=== PATIENT | male | born 1975 | race Hispanic/Latino ===

== ENCOUNTER 2016-08-23 05:19 | Inpatient (IN) | payer SELFPAY ==
[2016-08-23] VITALS (13 sets, daily range): BP systolic 116–176; BP diastolic 58–100; PULSE 90–120; RESP 15–44; O2SAT 93–100
[~2016-08-23] VITALS: Ht 175.3 cm; Wt 87.3 kg
[2016-08-23] MEDS ORDERED: 0.9% Sodium Chloride 1,000 ML IV ONE (05:37)
--- NOTE | 2016-08-23 05:37 | ED.REPORT ---
HPI-General Illness Date of Service Aug 23, 2016 ED Provider: Dom Escamilla MD The pt is a 41 y/o male presenting to the ED via EMS due to his becoming unresponsive since 0 last night. EMS was called due to the noticing the abnormal breathing and CPR instructions were given over the phone. The medics gave the pt 2 MG of Narcan IV which caused his arms to move but he continued to be unresponsive. They report his HR being 130 initially but gradually decreasing to 120. The pt's reports no falls or trauma to the pt's head. She also states that the pt's brother has possibly had seizures in the past. Nursing Notes Stated Complaint: UNRESPONSIVE Chief Complaint: Critical Care/Intubated Nursing Notes Reviewed: Yes Allergies: Coded Allergies: No Known Allergies (Unverified , 08/23/16) General Time Seen by MD: 05:36 Chief Complaint Other (Unresponsive ) Hx Obtained From: Patient Arrived By: Ambulance Sudden in Onset?: Yes Onset Occurred: 9 - 12 hours ago Symptom Duration: Since onset Recent Healthcare: No recent doctor visit, No recent hospitalization Similar Sx Previous: No Past Medical History Past Medical History None reported Past Surgical History None reported Social History None reported Other Social History: Good social support, Ambulatory Status Independent Review of Systems Unable to Obtain ROS Patient condition Physical Exam Vital Signs Vital Signs Date Time Temp Pulse Resp B/P Pulse Ox O2 Delivery O2 Flow Rate FiO2 08/23/16 06:31 117 22 164/93 96 ET Tube 08/23/16 06:26 93 08/23/16 05:59 120 16 162/100 99 ET Tube 08/23/16 05:37 118 15 176/96 100 ET Tube 08/23/16 05:20 38.2 119 44 157/91 94 Non-Rebreather 15 BP - 157/91 HR - 119 SaO2 - 94% on RA RR - 44 Glucose - 108 Initial VS: Reviewed Alertness: Positive: Unresponsive Appearance / Presentation: Positive: Ill appearing/not toxic Head / Eyes: Atraumatic, Normocephalic ENT: Mucous membranes moist, No facial swelling Neck: Atraumatic, Supple, Full range of motion Respiratory / Chest: Breath sounds NL, Breath sounds = bilat Kussmaul respirations Cardiovascular: Heart rate NL, Regular rhythm, Heart sounds NL Abdomen: Atraumatic, Soft Back: Atraumatic, Full range of motion Upper Extremities Upper Extremity / MS: Atraumatic, Inspection NL, Full range of motion Skin: Atraumatic, Color NL, No rash, Warm, Dry Mental Status: Positive: Unresponsive Unable to Evaluate: Positive: Unresponsive Interpretation & Diagnostics Lab Results Interpretation Result Diagram: 08/23/16 0530 08/23/16 0530 Test 08/23/16 05:30 08/23/16 06:30 White Blood Count 22.2th/mm3 (3.8-10.1) Red Blood Count 5.33mil/mm3 (4.40-5.80) Hemoglobin 15.4g/dL (13.8-17.2) Hematocrit 47.4% (41.0-50.0) Mean Corpuscular Volume 88.9fL (81-100) Mean Corpuscular Hemoglobin 28.9pg (27.0-35.0) Mean Corpuscular Hemoglobin Concent 32.5% (32.0-37.0) Red Cell Distribution Width 14.0% (12.3-15.4) Platelet Count 292bil/L (150-400) Neutrophils (%) (Auto) 82.7% (40-74) Lymphocytes (%) (Auto) 6.1% (14-46) Monocytes (%) (Auto) 10.0% (4-12) Eosinophils (%) (Auto) 0% (0-5) Basophils (%) (Auto) 0.1% (0-3) Sodium Level 143mEq/L (134-144) Potassium Level 5.5mEq/L (3.5-5.2) Chloride Level 100mEq/L (97-108) Carbon Dioxide Level 17mmol/L (18-29) Blood Urea Nitrogen 20mg/dL (6-24) Creatinine 3.52mg/dL (0.76-1.27) Estimat Glomerular Filtration Rate 21mL/min (>59) Glucose Level 130mg/dL (60-99) Lactic Acid Level 5.0mmol/L (0.4-2.0) Calcium Level 8.6mg/dL (8.5-10.1) Magnesium Level 2.2mg/dL (1.6-2.6) Total Bilirubin 0.4mg/dL (0.0-1.2) Aspartate Amino Transf (AST/SGOT) 231U/L (0-50) Alanine Aminotransferase (ALT/SGPT) 139U/L (0-44) Alkaline Phosphatase 78U/L (25-150) Total Protein 8.5g/dL (6.4-8.4) Albumin 4.3g/dL (3.4-5.0) Salicylates Level < 3.0ug/mL (30-250) Acetaminophen Level < 15.0ug/mL Rx (10-25) Alcohols < 10mg/dL (0-10) Urine Color Dark yellow (YELLOW) Urine Appearance Cloudy (CLEAR,HAZY) Urine pH 5.5 (5.0-8.0) Urine Specific [place] 1.006 (1.003-1.035) Urine Protein 100mg/dL (NEG,TRACE) Urine Glucose (UA) Negativemg/dL (NEGATIVE) Urine Ketones Negativemg/dL (NEGATIVE) Urine Occult Blood Large (NEGATIVE) Urine Nitrite Negative (NEGATIVE) Urine Bilirubin Negative (NEGATIVE) Urine Urobilinogen Normalmg/dL (NORMAL) Urine Leukocyte Esterase Negative (NEGATIVE) Urine RBC 3-10/hpf (0-2) Urine WBC 0-5/hpf (0-5) Urine Epithelial Cells Occasional/hpf (NONE-MOD) Urine Crystals Amorphous urates (NONE Urine Bacteria Few/hpf (NONE-FEW) Urine Hyaline Casts None/lpf (NONE) Urine Granular Casts None seen (NONE SEEN) Urine Waxy Casts None seen (NONE SEEN) Urine Red Blood Cell Casts None seen (NONE SEEN) Urine White Blood Cell Casts None seen (NONE SEEN) Urine Mucus Present (None Seen) Urine Trichomonas None seen (NONE SEEN) Urine Yeast None (NONE SEEN) Urinalysis Comment Fine granular casts Urine Culture Reflexed Not indicated X-Ray Chest Interpretation Chest Xray Interpretation: Endotracheal tube was placed properly and aspiration is visible. View: Portable, 1 view Interpretation / Wet Read by: Wet read ED physician Re-Eval/Medical Decision Med Decision/Clinical Course 41-year-old purportedly heavy drinker, went to sleep on the floor last night and was found essentially the same position as morning, except in a pool of vomit. He was not arousable and CPR was started per telephone directions from 911. Rescue found him unresponsive but breathing with a pulse. They transported him on a percent oxygen with adequate oxygenation, but unresponsive totally. He was intubated shortly after arrival here. Blunted vomit was suctioned out of the throat. He was hyperkalemic appeared acidotic, as was confirmed by arterial blood gas. Pupils were 3 mm and fixed. The eyes are unmoving with head movement. abnormal hypercapnic respiratory effort and swallowing efforts. Overall he appears to have the appearance suggestive of pontine stroke, although etiology is clearly not a stroke but anoxic brain injury. Suspect he vomited and aspirated overnight, although seizure is not impossible. He remains intubated, requiring some sedation, and may ultimately require paralysis if he continues to over breathe. CT showed no evidence of bleed, and at this point there is reasonable preservation of his danielle-white interface. He is admitted now to the ICU. Prognosis is grave but indeterminate for the first twenty-four hours. noted. No purposeful movements of the limbs. No withdrawal from noxious stimuli. Time of Eval: 05:49 Re-Evaluation/Progress Note: Pt was intubated w/ an endotracheal tube and 200 MG of succinylcholine was given. Counseled Regarding: Diagnosis, Lab results Discharge & Departure Primary Impression: Anoxic brain injury Additional Impression: Metabolic acidosis Disposition: ADMITTED TO HOSPITAL Discharge Condition All VS Reviewed: Yes Condition: Critical Referrals: Jessica Coello MD (PCP) Crit Care Except Billable Proc Time Spent: 75-104 minutes (seventy-five minutes) Services Performed: Patient management by me, Time spent at bedside, Reviewing test results, Reviewing imaging, Discussing patient care, Documentation in record, Time with fam/surrogate Scribe Attestation Portions of this note were transcribed by Bg Bangura. I, Dr. Escamilla personally performed the history, physical exam and medical decision-making; I reviewed and confirmed the accuracy of the information in the transcribed note. Signed by : Chica Bucio, 08/23/16 and [id number]. copies to: Jessica Coello MD, Christopher W MD Aug 23, 2016 05:37 Bg Bangura Aug 23, 2016 05:44
[2016-08-23 05:46] LABS: BASOPHILS % (AUTO) 0.1 % (0-3); EOSINOPHILS % (AUTO) 0 % (0-5); Mean Corpuscular Hemoglobin 28.9 pg (27.0-35.0); Mean Corpuscular Volume 88.9 fL (81-100); NEUTROPHILS % (AUTO) 82.7 % (40-74); Platelet Count 292 bil/L (150-400)
[2016-08-23 06:22] LABS: Magnesium 2.2 mg/dL (1.6-2.6)
[2016-08-23 06:57] LABS: APPEARANCE,URINE CLOUDY (CLEAR,HAZY); COLOR,URINE DARK YELLOW (YELLOW); OCCULT BLOOD,URINE LARGE (NEGATIVE); PH,URINE 5.5 (5.0-8.0); UROBILINOGEN,URINE NORMAL (NORMAL)
[2016-08-23] MEDS ORDERED: Succinylcholine Chloride 20 mg/mL 5 mL Inj ONE (07:02)
[2016-08-23] MEDS ORDERED: Rocuronium 10 mg/mL 5 mL Inj ONE (07:02)
[2016-08-23] MEDS ORDERED: Propofol Inj 1,000,000 MCG in IV Premix 1 EACH IV SCH (07:10)
[2016-08-23] MEDS ORDERED: Propofol 10 mg/mL 20 mL Inj IVPUSH ONE (07:10)
[2016-08-23] MEDS ORDERED: Lactated Ringer's 1,000 ML IV SCH (07:39)
--- NOTE | 2016-08-23 08:12 | DRSVH ---
PROCEDURE: X-RAY CHEST ONE VIEW, PORTABLE ([id number]) INDICATIONS: found down / POST INTUBATION TECHNIQUE: One view of the chest was acquired. COMPARISON: None. FINDINGS: Surgical changes and devices: There is an endotracheal tube 5.9 cm above the hafsa. monitoring specialist leads are seen over the chest. Lungs and pleura: No pleural effusions or pneumothorax. Lungs are clear. Mediastinum: Mediastinal contours appear normal. Heart size is normal. Bones and chest wall: No suspicious bony lesions. Overlying soft tissues appear unremarkable. IMPRESSION: Endotracheal tube appropriate in position. No focal infiltrate or abnormality is seen in the lungs. Dictated by: Hemant Gallegos M.D. on 08/23/2016 at 8:10 Approved by: Hemant Gallegos M.D. on 08/23/2016 at 8:10
--- NOTE | 2016-08-23 08:14 | DRSVH ---
PROCEDURE: CT BRAIN WITHOUT CONTRAST ([id number]) INDICATIONS: found down, unresponsive TECHNIQUE: Noncontrast 4.5 mm thick angled axial sections acquired from the foramen magnum to the vertex, with c oronal reformats. COMPARISON: None. FINDINGS: Image quality: Excellent. CSF spaces: Basal cisterns are patent. No extra-axial fluid collections. Ventricles are normal in size and shape. Brain: No midline shift. No intracranial masses or hemorrhage. Isaacs-white matter interface is norm al. Skull and face: Calvarium and visualized facial bones are intact, without suspicious lesions. Sinuses: Visualized sinuses and mastoids are clear. IMPRESSION: No acute disease. Dictated by: Hemant Gallegos M.D. on 08/23/2016 at 8:10 this report corresponds to the findings of the preliminary NSR report. Approved by: Hemant Gallegos M.D. on 08/23/2016 at 8:12
[2016-08-23] MEDS: Propofol Inj 1,000,000 MCG in IV Premix 1 EACH IV SCH ×3 (08:39→20:30)
--- NOTE | 2016-08-23 09:47 | ABG ---
DateTimeAnalyzed 09:33:00 -_ pH ____7.269 - 7.350 7.450 pCO2 ___44.9__ -mmHg 35.0 45.0 pO2 ___63.0__ -mmHg 69.0 116 HCO3- ___19.9__ -mmol/L 22.0 26.0 ABE ___-6.7__ -mmol/L -2.0 2.0 tHb ___16.7__ -g/dL O2Hb ___87.3__ -% COHb ____0.7__ -% MetHb ____1.0__ -% sO2 ___88.8__ -% 25.0 FIO2 ___70.0__ -% PRVC 550 - PEEP ____5.0__ -cmH2O Set_RR ___14.0__ -b/min Drawn By NB - Date/Time Notified____ 09:47:00 -_ Spontaneous_RR ___24.0__ -b/min Oxygen Device 1 VENTILATOR - Notified By NB - Notified Whom ____A.MAY, RN - B 762 -mmHg tO2 ___20.4__ -Vol% Jeff test N/A -
[2016-08-23] MEDS ORDERED: Acetaminophen IV 1,000 MG in IV Premix 1 EACH IV ONE (10:00)
[2016-08-23] MEDS ORDERED: 0.9% Sodium Chloride 1,000 ML IV SCH ×2 (12:15→13:38)
[2016-08-23] MEDS ORDERED: Insulin LISPRO 300 Unit/3 mL Inj SUBQ ONE (12:20)
[2016-08-23] MEDS: Piperacillin-Tazo 3.375 Gm Inj 3.375 GM in Dextrose 5% Minibag Plus 50 ML IV SCH ×2 (12:26→20:31)
[2016-08-23] MEDS ORDERED: INSULIN HUMAN REGULAR IV SCH (12:30)
[2016-08-23] MEDS ORDERED: DEXTROSE 10% IV SCH (12:30)
--- NOTE | 2016-08-23 12:36 | ABG ---
DateTimeAnalyzed 12:28:00 -_ pH ____7.289 - 7.350 7.450 pCO2 ___41.2__ -mmHg 35.0 45.0 pO2 228 -mmHg 69.0 116 HCO3- ___19.1__ -mmol/L 22.0 26.0 ABE ___-6.8__ -mmol/L -2.0 2.0 tHb ___17.1__ -g/dL O2Hb ___97.6__ -% COHb ____0.3__ -% MetHb ____1.0__ -% sO2 ___98.9__ -% 25.0 FIO2 ___70.0__ -% PRVC 550 - PEEP ____8.0__ -cmH2O Set_RR ___20.0__ -b/min Vt __550.0__ -L Drawn By NB - Date/Time Notified____ 12:36:00 -_ Oxygen Device 1 VENTILATOR - Notified By nb - Notified Whom Dr Nizzamdin/Dr. Kendregan - B 762 -mmHg tO2 ___23.9__ -Vol% Jeff test N/A -
[2016-08-23] MEDS ORDERED: Sodium Chloride LOK Flush 10 mL Syringe IVFLUSH PRN ×2 (13:45)
--- NOTE | 2016-08-23 13:49 | DRSVH ---
PROCEDURE: X-RAY CHEST ONE VIEW, PORTABLE ([id number]) INDICATIONS: Patient intubated, aspiration TECHNIQUE: One view of the chest was acquired. COMPARISON: None. FINDINGS: Surgical changes and devices: An endotracheal tube ends 8 cm above the hafsa. There is an NG tube in the stomach. cafeteria monitor leads are seen over the chest. Lungs and pleura: No pleural effusions or pneumothorax. Lungs are clear. Mediastinum: Mediastinal contours appear normal. Heart size is normal. Bones and chest wall: No suspicious bony lesions. Overlying soft tissues appear unremarkable. IMPRESSION: No acute disease is seen a semiupright portable chest. Tubes are considered appropriate radiographically. Dictated by: Hemant Gallegos M.D. on 08/23/2016 at 13:46 Approved by: Hemant Gallegos M.D. on 08/23/2016 at 13:47
--- NOTE | 2016-08-23 14:24 | NUR ---
NUTRITION ASSESSMENT: ASSESS:Per ED report, 41-year-old purportedly heavy drinker, went to sleep on the floor last night and was found essentially the same position as morning, except in a pool of vomit. He was not arousable; CPR was started per telephone directions from 911. Rescue found him unresponsive but breathing with a pulse. They transported him on a percent oxygen with adequate oxygenation, but unresponsive totally. He was intubated shortly after arrival in ED. Blunted vomit was suctioned out of the throat. He was hyperkalemic, appeared acidotic, as was confirmed by arterial blood gas. Pupils were 3 mm and fixed. He has been transferred to CCU for ventilator management. PMHx:No medical history with the exception of ETOH abuse. DIET:NPO. LABS: Reviewed. K+ k6.0, CO2 17, BUN 29, Cr 3.79, Glu 173, Ca 7.7 MEDICATIONS: Reviewed. Propofol rate currently 11.4 mL/hr, providing 301 lipid kcal. NUTRITION FOCUSED PHYSICAL ASSESSMENT: GI symptoms / stool: No stool reported.[place]: 10. Skin Integrity: No issues reported. ANTHROPOMETRICS: Current Wt: 86.36 kgBMI: 27.0 kg/m2. IBW: 75.45 kg (114% IBW) ESTIMATED NEEDS (VENT): Calories: 1727 - 2159 kcal (20 - 25 kcal / kg BW) Protein: 130 - 155 g protein (1.5 - 1.8 g / kg BW) Fluid: Approx. 2591 mL (30 mL / kg BW) NUTRITION DIAGNOSIS: 1)Inadequate oral intake related to inability to consume sufficient energy, as evidenced by NPO / vent status. INTERVENTION: 1) In the event enteral feeding ordered over weekend, recommendation follows. Recommend initiate Jevity 1.5 at 35 mL/hr. Once tolerance established, recommend advance 10 ml every 4 hr. to goal rate 55 mL/hr. Flush dose 40 mL H2O every 4 hr. Enteral feeding at goal would provide 1815 kcal, 77 g protein, sufficient to meet 100% kcal / 55% protein needs. 2) Once tolerance established, recommend 1 packet [employer] liquid protein five times per day to meet 100% protein needs. MONITOR/EVALUATE: NPO / vent status, labs, GI/nutrition status. Follow up per high nutrition risk guidelines.
[2016-08-23 15:02] LABS: Phosphorus 7.2 mg/dL (2.5-4.9)
[2016-08-23] MEDS ORDERED: fentaNYL 2,500 mCg/250 mL 2,500 MCG in IV Premix 1 EACH IV PRN (15:03)
[2016-08-23 16:02] LABS: Magnesium 2.3 mg/dL (1.6-2.6); Phosphorus 5.2 mg/dL (2.5-4.9)
[2016-08-23] MEDS ORDERED: Acetaminophen IV 1,000 mg IV PRN (16:40)
--- NOTE | 2016-08-23 16:47 | ABG ---
DateTimeAnalyzed 16:39:00 -_ pH ____7.287 - pCO2 ___43.3__ -mmHg pO2 ___54.3__ -mmHg HCO3- ___20.0__ -mmol/L ABE ___-6.1__ -mmol/L tHb ___16.1__ -g/dL O2Hb ___82.9__ -% COHb ____0.6__ -% MetHb ____0.9__ -% sO2 ___84.2__ -% FIO2 ____5.0__ -% PRVC 550 - PEEP ____8.0__ -cmH2O Set_RR ___20.0__ -b/min Vt __550.0__ -L Drawn By ____RN/AF - Date/Time Notified____ 16:46:00 -_ Oxygen Device 1 VENTILATOR - Notified By NB - Notified Whom DR kENDREGAN - B 762 -mmHg tO2 ___18.7__ -Vol% Jeff test N/A -
[2016-08-23] MEDS ORDERED: Ondansetron 2 mg/mL 2 mL Inj IVPUSH PRN (18:35)
[2016-08-23] MEDS ORDERED: Alum-Mag Hydrox-Simeth 30 mL Suspension PO PRN (18:35)
[2016-08-23] MEDS ORDERED: Polyethylene Glycol (PEG) 17 Gm Powder PO PRN (18:35)
[2016-08-23] MEDS ORDERED: Senna-Docusate 8.6-50 mg Tablet PO PRN (18:35)
[2016-08-23] MEDS ORDERED: Acetaminophen IV 1,000 MG in IV Premix 1 EACH IV PRN (18:35)
--- NOTE | 2016-08-23 18:37 | NUR ---
Note Patient arrived in CCU after 0830 today. Patient was on ventilator and non-responsive. Heart rate 90s to low 100s and sinus with some degree of hypertension. Patient was over breathing ventilator respiratory rate of 14 by 15-20 breaths and was breathing at mid20- to high 30s. Patient was placed on propofol drip witch was titrated to comfort/adequate sedation within parameters. Occasional remaking during oral care, patient was not following commands- will consider lowering sedation when appropriate and after consulting with MD. Multiple lab draws with abnormal lab results consulted with the attending hospitalist and home care companion multiple times regarding labs and treatment. Potassium of 6.0 was treated with IV 3units regular insulin and D10 250ml infused over 1h- resulted with potassium of 5.8. However creatinine levels progressively increased during the shift with significantly decreased urine output MD consulted and ordered renal consult. Kayexalate 45gm per OG and additional orders were received per renal at the time. Multiple ventilator adjustments per RT after consulting with MD based on blood gases throughout the day- please see RT documentation. Elevated temp- consulted with MD patient was started on antibiotic regiment, Tylenol IV PRN with additional cooling- continue assessment. Multiple skin abrasions and pressure ulcers/injures after prolong down/sitting positon against a couch at home over 9-12h as describe by his consistent with pressure sores to buttock and both right and left scapula but grater on the right than the left. Multiple MEPILEX dressings were applied as appropriate for skin protection, turning and repositioning ad per protocol and PRN, wound care follow up was ordered.
[2016-08-23] MEDS: Dextrose 5% 0.45% NaCl 1,000 ML IV SCH (18:43)
[2016-08-23] MEDS: Azithromycin Inj 500 MG in Dextrose 5% w/Vial Mate 250 ML IV SCH (18:44)
--- NOTE | 2016-08-23 18:55 | CONS ---
[address] [address] CONSULTATION REPORT PATIENT: SANDY SOSA : 1975 MR#: [id number] ADMIT: 08/23/2016 JOB ID: [id number] CORRECTED REPORT: DATE OF SERVICE: 08/23/2016 ATTENDING PHYSICIAN: Dr. Bran. HISTORY: The patient is a 41-year-old, gentleman, who was admitted to [facility] for acute tubular necrosis secondary to rhabdomyolysis. His states that he had been drinking heavily yesterday and had been unresponsive since about 7 p.m. yesterday evening. She subsequently noticed abnormal breathing and CPR was started. He was treated with Narcan with no response. In the emergency department, he was subsequently intubated and mechanically ventilated. Subsequent laboratory revealed a potassium of 5.5, a BUN and creatinine of 20 and 3.53, lactate of 5, and a CPK of 45,000. He was given several liters of normal saline and subsequently was started on Ringer's lactate. His has had a number of liters of fluid and his blood pressure is stable. He remains on a ventilator. During my examination, at time of my consultation, he was beginning to make a small amount of urine. In discussing his history with his , she states that he has not had a history of any other medical problems. There is no history of any prior renal problems, diabetes, hypertension, lupus, or hepatitis. She states that on the weekends, he usually drinks fairly heavily but does not drink during the week. She relates that family brought several bottles of Tequila back from [place] and he consumed one of them yesterday. She denies any use of illicit drugs. PAST SURGICAL HISTORY: Unremarkable. He is not allergic to any food or any medication. FAMILY HISTORY: Unobtainable as no one seems to know about his family. He is not on any medication. REVIEW OF SYSTEMS: As detailed above. Otherwise is unremarkable. PHYSICAL EXAMINATION: Reveals a quite well-developed, 41-year-old gentleman, who was sedated and on a ventilator. His blood pressure was 144/72, with a heart rate of 116. HEENT examination showed some mildly pale sclerae and some scleral edema. Pupils were sluggish in their reaction to light secondary to sedation. Neck is supple without adenopathy, thyromegaly or jugular venous distention. Lungs are clear, though breath sounds were somewhat diminished. Heart was tachycardic but otherwise was unremarkable. Abdomen is soft, with markedly diminished bowel sounds. There was no tenderness, rebound, guarding, masses or hepatosplenomegaly. Extremities do not show any evidence of any clubbing, cyanosis, or edema. Skin turgor is good. In examining his dependent part of his body, the area of the shoulders, buttocks, and right heel have evidence of ulceration from pressure injury. Chest x-ray is unremarkable. LABORATORY EXAMINATION: On admission, his white count was 22.2. Hemoglobin, hematocrit, differential, platelet count were all unremarkable. His most recent lab showed a sodium of 138, potassium 5.8, chloride 102 bicarbonate 16. BUN and creatinine were 33 and 4.17, respectively. His glucose is 174. Uric acid is 9.2, and his most recent lactate was 3.6. He has had some slight improvement in his CPK which is now down to 41,000. Tests for salicylates. alcohols and acetaminophen were all negative. Urinalysis showed a specific gravity 1.006, pH was 5.5. Tests for protein, occult blood were positive. There were 3-10 RBCs per high-power field and 0-5 WBCs per high-power field. There were a few granular casts noted and amorphous urates. IMPRESSION: 1. Acute tubular necrosis secondary to rhabdomyolysis. 2. Rhabdomyolysis. 3. Hyperlactatemia. 4. Metabolic acidosis. RECOMMENDATION: I would like to obtain a renal ultrasound tomorrow to evaluate his renal function. I would also like to change his maintenance IV to D5 with half-normal saline at 150/hour. At approximately 10:00 this evening, I would like to give him a dose of 100 mg of Lasix. Based on his response and his urine output and laboratory parameters, I will base my recommendations tomorrow on these Once again, I would like to thank you for allowing me to participate in the care of this most pleasant but unfortunate patient. I will be following him closely with you. CC: Dr. Bran Corrected by GS 09/19/16 at 9:46am DOS.
--- NOTE | 2016-08-23 19:21 | DRSVH ---
PROCEDURE: X-RAY PICC LINE PLACEMENT BY NURSE ([id number]) INDICATIONS: IV access; facilitate blood draw COMPARISON: None. FINDINGS: PICC was placed by the intravenous therapy team from the right side. Fluoroscopic spot fi lm demonstrates tip of PICC in the superior vena cava near the right atrium. IMPRESSION: Tip of PICC lies within the superior vena cava. Dictated by: Hemant Gallegos M.D. on 08/23/2016 at 19:18 Approved by: Hemant Gallegos M.D. on 08/23/2016 at 19:18
--- NOTE | 2016-08-23 19:37 | PCM.HPMED ---
Subjective Date of Service Aug 23, 2016 Primary Provider: Admitting Physician: Maryjane Solo MD Primary Care Physician: No PCP Attending Physician: Kamini Bran DO Ditto Machine Operator: Enrique Rodriguez DO Admit Status: From the Emergency Department Chief Complaint: Unresponsive Acute Hypoxemic respiratory failure History of Present Illness: Santiago Ann is a 41 year old male who presented to the ED via EMS due to his becoming unresponsive since 1900 last night and found with vomit on himself at 0430 in the morning. EMS was called and CPR instructions were given over the phone to the as the patient had abnormal breathing. The medics gave the patient 2 mg of Narcan IV which caused his arms to move but he continued to be unresponsive. They report his HR being 130 initially but gradually decreasing to 120. The pt's reports no falls or trauma to the pt's head. She also states that the pt's brother has possibly had seizures in the past. She mentioned that Mr. Ann drank a bottle of tequila last night and does frequently drink alcohol. He has had no prior episodes like this. In the ED, vomit was suctioned out of the throat, and intubated. CT showed no acute disease and chest x-ray was unremarkble.He was found to be hyperkalemic and acidotic on ABG. He is admitted to the ICU for further management. Review of Systems: Unable to review as patient is intubated and sedated Allergies Coded Allergies: No Known Allergies (Unverified , 08/23/16) Home Medications None reported PMH None reported Surgical History None reported Family History Unable to obtain as patient intubated and sedated Social History Hx Alcohol Use: Yes Hx Substance Use: Yes Smoking Status: Unknown if Ever Smoker Living Arrangement: with Family Exam Vital Signs Vital Sign - Last Date Time Temp Pulse Resp B/P Pulse Ox O2 Delivery O2 Flow Rate FiO2 08/23/16 08:33 Ventilator 08/23/16 08:33 38.1 97 28 160/77 99 70 08/23/16 05:20 15 Intake and Output 08/22/16 08/22/16 08/23/16 Cumulative From/Thru 15:00 23:00 07:00 08/23/16 05:20 - 08/23/16 05:20 Intake Total 1000 ml 1000 ml Balance 1000 ml 1000 ml Intake IV Total 1000 ml 1000 ml Exam General: Patient intubated and sedated HEENT: Normocephalic, atraumatic. Pupils equal, round. Anicteric sclerae, moist conjunctivae. NG tube on suction, intubated. Cardiovascular: Regular rate and rhythm with no murmurs, rubs, or gallops appreciated Pulmonary: Clear to auscultation anteriorly with equal air sounds bilaterally. Patient intubated with FiO2 70%, PEEP of 8. Abdomen: Bowel tones present. Soft, nondistended. Extremities: No clubbing, cyanosis, edema, or lymphadenopathy appreciated. Skin: Large erythemetous region around sacrum with open wound about 3 inches in diameter. Similar looking presentation at upper thorax with some blisters. Neurological: Unable to assess as patient sedated. He is not responding to commands at this time. Lab and Diagnostics Labs Item Value Date Time Lactic Acid Level 5.0 mmol/L *H 08/23/16 0530 Lactic Acid Level 4.2 mmol/L *H 08/23/16 1110 Glucose Level 130 mg/dL H 08/23/16 0530 Glucose Level 173 mg/dL H 08/23/16 1110 Creatinine 3.52 mg/dL H 08/23/16 0530 Creatinine 3.79 mg/dL H 08/23/16 1110 Blood Urea Nitrogen 20 mg/dL 08/23/16 0530 Blood Urea Nitrogen 29 mg/dL H 08/23/16 1110 Potassium Level 5.5 mEq/L H 08/23/16 0530 Potassium Level 6.0 mEq/L H 08/23/16 1110 Aspartate Amino Transf (AST/SGOT) 231 U/L H 08/23/16 0530 Alanine Aminotransferase (ALT/SGPT) 139 U/L H 08/23/16 0530 Total Creatine Kinase 1073 U/L H 08/23/16 1110 White Blood Count 22.2 th/mm3 H 08/23/16 0530 Result Diagram: 08/23/16 0508/23/16 05 Microbiology Blood cultures pending MRSA swab pending X-Rays, CTs and MRIs 08/23/16 PROCEDURE: CT BRAIN WITHOUT CONTRAST ([id number]) IMPRESSION: No acute disease. 08/23/16 PROCEDURE: X-RAY CHEST ONE VIEW, PORTABLE ([id number]) IMPRESSION: Endotracheal tube appropriate in position. No focal infiltrate or abnormality is seen in the lungs. Additional Diagnostics: ABG DateTimeAnalyzed 12:28:00 -_ pH ____7.289 - 7.350 7.450 pCO2 ___41.2__ -mmHg 35.0 45.0 pO2 228 -mmHg 69.0 116 HCO3- ___19.1__ -mmol/L 22.0 26.0 ABE ___-6.8__ -mmol/L -2.0 2.0 tHb ___17.1__ -g/dL O2Hb ___97.6__ -% COHb ____0.3__ -% MetHb ____1.0__ -% sO2 ___98.9__ -% 25.0 FIO2 ___70.0__ -% PRVC 550 - PEEP ____8.0__ -cmH2O Set_RR ___20.0__ -b/min Vt __550.0__ -L Drawn By NB - Date/Time Notified____ 12:36:00 -_ Oxygen Device 1 VENTILATOR - Notified By nb - Notified Whom [facility]/Dr. Kendregan - B 762 -mmHg tO2 ___23.9__ -Vol% Jeff test N/A - DateTimeAnalyzed 09:33:00 -_ pH ____7.269 - 7.350 7.450 pCO2 ___44.9__ -mmHg 35.0 45.0 pO2 ___63.0__ -mmHg 69.0 116 HCO3- ___19.9__ -mmol/L 22.0 26.0 ABE ___-6.7__ -mmol/L -2.0 2.0 tHb ___16.7__ -g/dL O2Hb ___87.3__ -% COHb ____0.7__ -% MetHb ____1.0__ -% sO2 ___88.8__ -% 25.0 FIO2 ___70.0__ -% PRVC 550 - PEEP ____5.0__ -cmH2O Set_RR ___14.0__ -b/min Drawn By NB - Date/Time Notified____ 09:47:00 -_ Spontaneous_RR ___24.0__ -b/min Oxygen Device 1 VENTILATOR - Notified By NB - Notified Whom ____A.LALO, RN - B 762 -mmHg tO2 ___20.4__ -Vol% Jeff test N/A - Assessment & Plan Santiago Ann is a 41 year old male with no known past medical history who came in unresponsive after being found with vomit around him, now sedated and intubated for acute hypoxemic respiratory failure secondary to aspiration. Acute Hypoxemic Respiratory Failure, present on admission, active Secondary to asipiration. Patient has had large volume of vomit suctioned out. Chest X-ray personally reviewed and is unremarkable for pneumonia. Differential includes anoxic brain injury as patient has been unresponsive since admission. His eyes were fixed in the ED. - Currently intubated and sedated with FiO2 70% and PEEP of 8. - Currently sedated with Propofol. - Latest ABG as above, continue to monitor - X-ray tomorrow AM. -Critical care consulted case discussed with Dr. Daniel Metabolic Acidosis, present on admission, active Likely secondary to lactic acidosis - Monitor CMP Rhabdomyolysis, present [place] admission, [place] [id number]. Likely secondary to being in one position for 9 hours. Patient has large erythematous regions at pressure points of sacrum and upper thorax with open wound at sacrum. - IV fluids 250cc/hr - Monitor CK - Wound care consult - Nephrology consulted cased discussed with Dr. Whatley Acute Kidney Injury, present on admission, active Cr on admission at 3.52 and increasing after admission. Unknown history of kidney injury. 2L NS in the ED - IV fluids increased to 250 mL/hr - 2L NS bolus today - Continue to monitor Hyperkalemia, present on admission, active - 3 units IV insulin in D10 - Continue to monitor Elevated Liver Function Tests, present on admission, active Likely due to chronic alcohol use - Repeat CMP Alcohol abuse -Patient currently sedated no need to institute CIWA protocol at this time Questionable drug abuse -Patient's was concerned that the patient might have other substances in his tox screen, will discuss further with the once there is no other family present in the room. Code Status: Full Code Patient Status: Patient is admitted under inpatient status with expected length of stay greater than 2 midnights due to severity of presenting symptoms, risk of adverse event, and complexity of treatment plan. GI Prophylaxis: Proton Pump Inhibitor VTE Mechanical Devices: Intermittant Pneumatic CD Resuscitation Status: CPR: Attempt Resuscitation Attending Statement The patient was seen and examined together with Dr. Rodriguez on 08/23/2016 and I have added additional information to the note above. Enrique Rodriguez DO Aug 23, 2016 10:07 Kamini Bran DO Aug 24, 2016 14:02
--- NOTE | 2016-08-23 19:49 | CONS ---
[address] [address] CONSULTATION REPORT PATIENT: SANDY SOSA : 1975 MR#: [id number] ADMIT: 08/23/2016 JOB ID: [id number] DATE OF SERVICE: 08/23/2016 REQUESTING PHYSICIAN: Kamini Bran MD. REASON FOR CONSULTATION: Respiratory failure. HISTORY OF PRESENT ILLNESS: The patient is a 41-year-old, [place] male who has a heavy drinking history. It is unclear whether it is beer or beer and Tequila. In any case, he started drinking heavily two days before admission. Drank Tequila all day and again all day Thursday. Thursday evening, the patient was sitting on the couch with his . Climbed off the couch and sat in front of the couch on the floor, leaning on the front of the couch. He fell asleep and began snoring. A cousin, who was also there, told his that things were okay and that he needed some sleep and that he should be left alone. She went to bed at about 11:00 at night. He was still in the same position snoring. She woke at 4:30 a.m., and he was still sitting in front of the couch though some observers say he was lying in front of the couch, but his face was covered with vomit. She was not sure he was breathing. However, paramedics described a shallow breath and shallow pulse. He was intubated in the emergency department. Aspiration was visible. Transferred to the ICU. According to the , the patient has no other medical problems. Takes no other medications and has no allergies. 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 REVIEW OF SYSTEMS: Unable to obtain. No other pertinent history available. PHYSICAL EXAMINATION: Vital signs at the time of my evaluation show a temperature of 38.8, pulse of 90, respiratory rate 20, blood pressure 127/75. O2 sat on FiO2 of 70%, PEEP of 8, is 99%. I and O suggests that he has 2 L of normal saline infused. Currently has 0.5 L of lactated Ringer's infusing. Urine output maybe is 150 since admission about 7 hours ago. Eyes: Conjunctivae are pink. Pupils pinpoint. Sclerae anicteric. No evidence of trauma. Nose and throat could not be examined. Neck: No masses palpable. Chest has fairly good breath sounds bilaterally. Scattered crackles throughout both lung lisa. Heart: Regular rhythm. Heart tones normal. Abdomen soft. Quiet. No apparent distention. Extremities: No clubbing, cyanosis, nor pretibial edema. Skin: There is a palm-sized erythematous patch with some edema on his right scapular area. I am told there is worse erythematous edema with some skin breakdown on the sacral area. LABORATORY DATA: Shows a white count of 22,200, with 82 polymorphonuclears, no bands, 6 lymphocytes. Hemoglobin 15.4. Platelet count 292,000. Sodium 141, potassium 6, chloride 103, CO2 is 17. BUN 29, creatinine is 3.7. Calcium 7.7. Early this morning, total bilirubin was 0.4. AST 231, ALT 139, alkaline phos 78. Albumin 4.3. UA shows large amount of occult blood but only 3-10 RBCs. Toxicology screen negative for salicylates, acetaminophen and alcohols. Chest x-ray on admission showed endotracheal tube 6 cm above the main hafsa. Lungs are clear. Arterial blood gases on an FiO2 of 70%, PEEP of 5, tidal volume of 550, rate of 14, showed a pO2 of 63, pCO2 44, pH 7.26. Subsequently, PEEP was raised to 8. With the rise in the PEEP to 8, O2 sats doyle to 99% to 100%. Urine output is a few mL at best. A burnt red color to the urine. ASSESSMENT: 1. Aspiration pneumonia. Noted to have vomitus in his airway at the time of intubation. 2. Probable anoxic encephalopathy. Has pinpoint pupils which is somewhat worrisome for a pontine lesion. Initial CT is normal although much too early to see any significant cerebral edema. 3. Rhabdomyolysis. CK was initially reported as 1100, but that was on diluted specimen. We have asked them to calculate the undiluted concentration. That will also be repeated. 4. Hypokalemia. Not putting out much urine. It is incumbent upon us with the hyperkalemia and the renal failure with a creatinine above 3.79 and a potassium of 6 in the face of rhabdomyolysis to try to achieve reasonable diuresis, putting out 100 or 200 mL of urine an hour to ameliorate the nephrotoxicity associated with rhabdomyolysis. With the hyperkalemia, I do not think LR is a judicious choice and should be changed to normal saline. I think it important that we contact Renal as we are going to run into trouble with fluid resuscitation if we cannot get the patient urinating. Would start Lasix, but I think Renal should at least know about this patient as dialysis is likely in his future. PLAN: 1. Stat repeat BMP, lactic acid, uric acid, phosphorus, CK, along with repeat blood gases. Can do venous blood gases through PICC line. 2. Asked IV Services to place a PICC line for secure IV access. 3. Would add fentanyl to his sedation. That might work better for his apparent comfort than the propofol. 4. Agree with empiric antibiotics, utilizing Zosyn for aspiration pneumonitis. 5. Consider renal consultation. 6. Fentanyl infusion. 7. Normal saline at 250 mL an hour. 8. Stat blood work to consist of BMP, CK, lactic acid, lipase, magnesium and phosphorus, uric acid. Discussed the situation with and one family member. Explained the concern about his current state, as well as the concern regarding significant brain injury. Time spent so far in critical care is 105 minutes.
[2016-08-23] MEDS ORDERED: Furosemide 10 mg/mL 10 mL Inj IVPUSH ONE (22:00)
[2016-08-24] VITALS (12 sets, daily range): BP systolic 125–148; BP diastolic 74–98; PULSE 74–88; RESP 20–22; O2SAT 98–100
[2016-08-24] MEDS: Dextrose 5% 0.45% NaCl 1,000 ML IV SCH ×4 (01:28→22:27)
[2016-08-24] MEDS: Propofol Inj 1,000,000 MCG in IV Premix 1 EACH IV SCH ×3 (01:28→12:10)
[2016-08-24 05:34] LABS: BASOPHILS % (AUTO) 0.1 % (0-3); EOSINOPHILS % (AUTO) 0.1 % (0-5); MONOCYTES % (AUTO) 9.2 % (4-12); Mean Corpuscular Hemoglobin 29.2 pg (27.0-35.0); Mean Corpuscular Volume 88.1 fL (81-100); NEUTROPHILS % (AUTO) 81.1 % (40-74); Platelet Count 181 bil/L (150-400)
[2016-08-24 05:53] LABS: Phosphorus 6.4 mg/dL (2.5-4.9)
[2016-08-24] MEDS ORDERED: Pantoprazole 4 mg/mL 10 mL Inj IVPUSH SCH (08:30)
[2016-08-24] MEDS: Piperacillin-Tazo 3.375 Gm Inj 3.375 GM in Dextrose 5% Minibag Plus 50 ML IV SCH ×2 (08:32→20:50)
[2016-08-24] MEDS: Famotidine Inj 20 MG in IV Premix 1 EACH IV SCH (08:32)
--- NOTE | 2016-08-24 08:34 | DRSVH ---
PROCEDURE: X-RAY CHEST ONE VIEW, PORTABLE ([id number]) INDICATIONS: aspiration, pt intubated TECHNIQUE: One view of the chest was acquired. COMPARISON: [facility], CR, XR CHEST 1VW (PORTABLE), 08/23/2016, 10:24. FINDINGS: Surgical changes and devices: Endotracheal tube nasogastric tube and right PICC are unchanged. Lungs and pleura: No pleural effusions or pneumothorax. Lungs are clear. Mediastinum: Mediastinal contours appear normal. Heart size is normal. Bones and chest wall: No suspicious bony lesions. Overlying soft tissues appear unremarkable. IMPRESSION: Support lines as above. Otherwise, no acute pulmonary process. Dictated by: Shobha Vale M.D. on 08/24/2016 at 8:31 Approved by: Shobha Vale M.D. on 08/24/2016 at 8:32
[2016-08-24] MEDS ORDERED: Furosemide 10 mg/mL 10 mL Inj IVPUSH ONE (11:15)
--- NOTE | 2016-08-24 12:05 | PCM.PNNEPH ---
Subjective Date of Service Aug 24, 2016 Subjective Patient's condition is slightly improved. He is having an increase in his BUN and creatinine however his total CPK continues to decrease to 34,000 today. Last 24-hour he has made 750 and also when necessary and 250 since midnight. He remains sedated and on a ventilator. His intake and output for the last 24 hours was 3699 in and 750 out. This morning his sodium is 140, potassium 4.6, chloride 104, bicarbonate 19, creatinine were 47 and 5.97. Exam Vital Signs Vital Sign - Last Date Time Temp Pulse Resp B/P Pulse Ox O2 Delivery O2 Flow Rate FiO2 08/24/16 08:10 Ventilator 08/24/16 08:10 37.0 76 20 135/84 99 50 08/23/16 05:20 15 Intake and Output 08/23/16 08/23/16 08/24/16 Cumulative From/Thru 15:00 23:00 07:00 08/23/16 05:20 - 08/24/16 06:50 Intake Total 2699 ml 2894 ml 6593 ml Output Total 500 ml 450 ml 400 ml 1350 ml Balance -500 ml 2249 ml 2494 ml 5243 ml Intake IV Total 2639 ml 2834 ml 6473 ml Tube Irrigant 60 ml 60 ml 120 ml Output Urine Total 500 ml 250 ml 250 ml 1000 ml Gastric Drainage Total 200 ml 150 ml 350 ml # Bowel Movements 2 2 Exam HEENT examination is unremarkable. He is sedated and on a ventilator. Neck is supple without adenopathy, thyromegaly, or jugular venous distention. Lungs showed a few scattered rhonchi but otherwise were clear. Abdomen is soft and there is some markedly diminished bowel sounds noted. There is no tenderness rebound guarding masses over his liver does appear to be a bit more enlarged. Extremities shows some mild generalized some I pitting edema. Skin turgor is good. There is no evidence of any rashes. The ischemic ulcers are currently covered in that were not explored. Lab and Diagnostics Result Diagram: 08/24/16 0520 08/24/16 0520 Microbiology Blood cultures pending MRSA swab pending X-Rays, CTs and MRIs 08/23/16 PROCEDURE: CT BRAIN WITHOUT CONTRAST ([id number]) IMPRESSION: No acute disease. 08/23/16 PROCEDURE: X-RAY CHEST ONE VIEW, PORTABLE ([id number]) IMPRESSION: Endotracheal tube appropriate in position. No focal infiltrate or abnormality is seen in the lungs. Additional Diagnostics ABG DateTimeAnalyzed 12:28:00 -_ pH ____7.289 - 7.350 7.450 pCO2 ___41.2__ -mmHg 35.0 45.0 pO2 228 -mmHg 69.0 116 HCO3- ___19.1__ -mmol/L 22.0 26.0 ABE ___-6.8__ -mmol/L -2.0 2.0 tHb ___17.1__ -g/dL O2Hb ___97.6__ -% COHb ____0.3__ -% MetHb ____1.0__ -% sO2 ___98.9__ -% 25.0 FIO2 ___70.0__ -% PRVC 550 - PEEP ____8.0__ -cmH2O Set_RR ___20.0__ -b/min Vt __550.0__ -L Drawn By NB - Date/Time Notified____ 12:36:00 -_ Oxygen Device 1 VENTILATOR - Notified By nb - Notified Whom [facility]/Dr. Kendregan - B 762 -mmHg tO2 ___23.9__ -Vol% Jeff test N/A - DateTimeAnalyzed 09:33:00 -_ pH ____7.269 - 7.350 7.450 pCO2 ___44.9__ -mmHg 35.0 45.0 pO2 ___63.0__ -mmHg 69.0 116 HCO3- ___19.9__ -mmol/L 22.0 26.0 ABE ___-6.7__ -mmol/L -2.0 2.0 tHb ___16.7__ -g/dL O2Hb ___87.3__ -% COHb ____0.7__ -% MetHb ____1.0__ -% sO2 ___88.8__ -% 25.0 FIO2 ___70.0__ -% PRVC 550 - PEEP ____5.0__ -cmH2O Set_RR ___14.0__ -b/min Drawn By NB - Date/Time Notified____ 09:47:00 -_ Spontaneous_RR ___24.0__ -b/min Oxygen Device 1 VENTILATOR - Notified By NB - Notified Whom ____A.MAY, RN - B 762 -mmHg tO2 ___20.4__ -Vol% Jeff test N/A - Plan Impression Impression #1 acute tubular necrosis secondary to rhabdomyolysis #2 hyperprolactinemia #3 metabolic acidosis Recommendations #1 would like to continue him on the D5 and half-normal saline at 150 mL vessel nurse to give him 120 mg of Lasix over 30 minutes. Recheck his lab at 1600 today and a vascular study to me a call when this lab is back for an update and also discussing about his change in his laboratory parameters. As he is currently making some urine we will hold off on dialysis at this time. Ace Whatley DO Aug 24, 2016 12:05
--- NOTE | 2016-08-24 14:57 | PCM.PNMED ---
Subjective Date of Service Aug 24, 2016 Subjective Patient was seen and examined at bedside today. Patient currently remains intubated and sedated. Patient is at bedside after significant discussion with the she admitted that the patient does have a habit of using cocaine and also ice. The patient states that her does not always tell her when he uses drugs but he does admit to his sister whenever he uses drugs so the patient's states that she will find out if he was using ice in conjunction with his significant alcohol use. The patient's states that the patient does use cocaine but is able to control his use of cocaine however states that whenever he uses ice he is unable to control his usage of that and has more of a desire to use this however he does state that this drug "does not do good things to his body" and is able to feel the negative side effects almost immediately. She also states that he continues to use cocaine for pain relief purposes and states that nothing else has helped this. She states that his back pain is in the area of the kidneys, which may suggest that he has had previous kidney injury but was unaware of this as they do not have insurance and he does not go to the doctors regularly. Overnight events: None Exam Vital Signs Vital Sign - Last Date Time Temp Pulse Resp B/P Pulse Ox O2 Delivery O2 Flow Rate FiO2 08/24/16 12:11 Ventilator 08/24/16 12:11 37.1 78 20 125/82 98 50 08/23/16 05:20 15 Intake and Output 08/23/16 08/23/16 08/24/16 Cumulative From/Thru 15:00 23:00 07:00 08/23/16 05:20 - 08/24/16 06:50 Intake Total 2699 ml 2894 ml 6593 ml Output Total 500 ml 450 ml 400 ml 1350 ml Balance -500 ml 2249 ml 2494 ml 5243 ml Intake IV Total 2639 ml 2834 ml 6473 ml Tube Irrigant 60 ml 60 ml 120 ml Output Urine Total 500 ml 250 ml 250 ml 1000 ml Gastric Drainage Total 200 ml 150 ml 350 ml # Bowel Movements 2 2 Exam Physical Exam: GEN: Patient is currently sedated and intubated, no signs of distress HEENT: Neck soft supple, trachea midline, nomocephalic/atraumatic, PERRLA CV: +S1/S2, regular rate and rhythm, no murmurs auscultated Respiratory: Coarse breath sounds secondary to ventilator, no wheezes, rales, rhonchi GI: +bowel sounds x4, soft, compressible, nontender to palpation Skin: Erythematous lesions in the upper thorax with positive bulla forming, significant erythematous region around the sacrum with a superficial 3 inch diameter open wound present. EXT: no clubbing, cyanosis, edema Neuro: Patient is currently sedated and intubated unable to assess Psych: Patient is currently sedated and intubated unable to assess IVs and Medications Medications Reviewed: Medications were reviewed in detail Lab and Diagnostics Result Diagram: 08/24/1651908/24/16519 Microbiology Blood cultures pending MRSA swab pending X-Rays, CTs and MRIs 08/23/16 PROCEDURE: CT BRAIN WITHOUT CONTRAST ([id number]) IMPRESSION: No acute disease. 08/23/16 PROCEDURE: X-RAY CHEST ONE VIEW, PORTABLE ([id number]) IMPRESSION: Endotracheal tube appropriate in position. No focal infiltrate or abnormality is seen in the lungs. Additional Diagnostics ABG DateTimeAnalyzed 12:28:00 -_ pH ____7.289 - 7.350 7.450 pCO2 ___41.2__ -mmHg 35.0 45.0 pO2 228 -mmHg 69.0 116 HCO3- ___19.1__ -mmol/L 22.0 26.0 ABE ___-6.8__ -mmol/L -2.0 2.0 tHb ___17.1__ -g/dL O2Hb ___97.6__ -% COHb ____0.3__ -% MetHb ____1.0__ -% sO2 ___98.9__ -% 25.0 FIO2 ___70.0__ -% PRVC 550 - PEEP ____8.0__ -cmH2O Set_RR ___20.0__ -b/min Vt __550.0__ -L Drawn By NB - Date/Time Notified____ 12:36:00 -_ Oxygen Device 1 VENTILATOR - Notified By nb - [facility] [place] [facility]. Kendregan - B 762 -mmHg tO2 ___23.9__ -Vol% Jeff test N/A - DateTimeAnalyzed 09:33:00 -_ pH ____7.269 - 7.350 7.450 pCO2 ___44.9__ -mmHg 35.0 45.0 pO2 ___63.0__ -mmHg 69.0 116 HCO3- ___19.9__ -mmol/L 22.0 26.0 ABE ___-6.7__ -mmol/L -2.0 2.0 tHb ___16.7__ -g/dL O2Hb ___87.3__ -% COHb ____0.7__ -% MetHb ____1.0__ -% sO2 ___88.8__ -% 25.0 FIO2 ___70.0__ -% PRVC 550 - PEEP ____5.0__ -cmH2O Set_RR ___14.0__ -b/min Drawn By NB - Date/Time Notified____ 09:47:00 -_ Spontaneous_RR ___24.0__ -b/min Oxygen Device 1 VENTILATOR - Notified By NB - Notified Whom ____A.MAY, RN - B 762 -mmHg tO2 ___20.4__ -Vol% Jeff test N/A - Assessment & Plan Santiago Seth is a 41 year old male with no known past medical history who came in unresponsive after being found with vomit around him, now sedated and intubated for acute hypoxemic respiratory failure secondary to aspiration. Acute Hypoxemic Respiratory Failure, present on admission, active Secondary to asipiration and intoxication. Patient has had large volume of vomit suctioned out. Chest X-ray personally reviewed and is unremarkable for pneumonia. Differential includes anoxic brain injury as patient has been unresponsive since admission. His eyes were fixed in the ED. - Currently intubated and sedated with FiO2 50% and PEEP of 8. - Currently sedated with Propofol. - X-ray Image reviewed today patient still does not look like he has any signs of aspiration pneumonia - We will continue to treat with Zosyn as this still may be a possibility of aspiration pneumonia -Leukocytosis improving currently trending down on admission 22.2 today 17.9 -Critical care consulted case discussed with Dr. Daniel Metabolic Acidosis, present on admission, active Likely secondary to lactic acidosis - Monitor CMP Rhabdomyolysis, present on admission, [place] [id number]. Likely secondary to being in one position for 9 hours. Patient has large erythematous regions at pressure points of sacrum and upper thorax with open wound at sacrum. - IV fluids 250cc/hr - Monitor CK - Wound care consult - Nephrology consulted and following cased discussed with Dr. Whatley today Acute Kidney Injury, present on admission, active Cr on admission at 3.52 and increasing after admission. Unknown history of kidney injury. 2L NS in the ED - IV fluids increased to 250 mL/hr - 2L NS bolus today -Nephrology (Dr. Whatley) currently following case was discussed with him will give the patient another 100 animals of Lasix today to encourage urination - Continue to monitor Hyperkalemia, present on admission (resolved) - Current potassium is 4.6 - 3 units IV insulin in D10 given on 08/23/2016 - Continue to monitor Elevated Liver Function Tests, present on admission, active Likely due to chronic alcohol use - Currently trending down - Continue to monitor Alcohol abuse -Patient currently sedated no need to institute CIWA protocol at this time Drug abuse -Patient is a known user of cocaine and ice -We will obtain further history to find out last use Code Status: Full Code Disposition: Patient currently intubated and sedated patient does seem to be progressing however his kidney failure seems to be worsening. We will continue to encourage diuresis. Nephrology is following and case dialysis is necessary. Case was discussed with both nephrology (Dr. Whatley) and critical care (Dr. Daniel) today. GI Prophylaxis: Proton Pump Inhibitor VTE Mechanical Devices: Intermittant Pneumatic CD Resuscitation Status: CPR: Attempt Resuscitation Kamini Bran DO Aug 24, 2016 14:57
--- NOTE | 2016-08-24 15:35 | NUR ---
Social Work: Multidisciplinary Rounds Pt discussed in am rounds. Pt is not medically stable for discharge at this time. Pt currently in CCU on vent with CCU team following. Pt has screen for assessment due to self-pay insurance and multiple providers involved in care; case management will not be able to assess pt today due to high census. ANALYTICAL SCIENCES DIRECTOR will continue to follow and attempt assessment. JEFF Fox
[2016-08-24] MEDS: Azithromycin Inj 500 MG in Dextrose 5% w/Vial Mate 250 ML IV SCH (17:48)
--- NOTE | 2016-08-24 19:19 | NUR ---
Note Sedation decreased at 1230 today: propofol drip from 30mcg/kg/min to 5mcg/kg/min and fentanyl drip from 50mcg/h to 20mcg/h. after about 1h patient started over-breeding ventilator rate by 2-3 breaths per min with occasional breaths stacking. Patient had productive cough stimulated by turning/repositioning. When suctioned per ET with thick rick moderate amounts of phlegm. Patient was grimace during oral care or when suctioned with minimal gag reflex. Eye opening spontaneously only during ET suctioning and not to commands- patient was not tracking. Cornea stimulation no visible response. Dr. Mooney informed patients family about a need for a family conference regarding patients progress/condition with live supervisor glycerin as soon as tomorrow- MD will consult with other physicians/staff attending. Progressive increased in creatinine and BUN during the last 24h. Total urine output in 12h was 175-primary MD and delivery technician were informed/consulted about laboratory changes and patients status during the shift. Next set of labs to be drawn in AM Renal will consider dialysis based on morning labs.
--- NOTE | 2016-08-24 20:01 | PROG NOTE ---
[address] [address] PROGRESS NOTE PATIENT: SANDY SOSA : 1975 MR#: [id number] ADMIT: 08/23/2016 JOB ID: [id number] DATE: 08/24/2016 PROBLEM LIST: 1. Anoxic encephalopathy. 2. Acute alcohol abuse. 3. Rhabdomyolysis with acute kidney injury. 4. Hyperkalemia. 5. Aspiration pneumonitis. 6. Hypoxemic hypercarbic respiratory failure. SUBJECTIVE: None. OBJECTIVE: Temperature 37.1. Pulse mid 70s. Respiratory rate 20-22 with ventilator set at 20. Blood pressure 137/87, O2 sat on FiO2 of 50%, PEEP of 8, is 99%. I and O shows 3.6 L in, 0.9 L out, with only 500 mL of the 950 being urine. General appearance: Sedated on the ventilator, though the sedation has been decreased throughout the day. Currently, on fentanyl 20 mcg/hour. Been off much of the sedation for the past 7 hours. Pupils pinpoint. Corneals absent. Some roving eye movements noted. Chest is clear anterolaterally. Heart: Regular rhythm. Heart tones normal. Abdomen soft. Quiet. Extremities: No withdrawal from pain. Bilateral Babinski response present. LABORATORY DATA: Shows a white count of 17,900, down from 22,200 yesterday. Eighty-one polymorphonuclears, 8 lymphocytes, 9 monocytes. Hemoglobin stable at 15.4. Platelet count 181,000, down from 292,000. Sodium 140, potassium 4.6, chloride 104. CO2 is 19. BUN 47, slowly increasing. Creatinine 5.97, up over 1 mg in the past 7 hours. Calcium 7.2 with albumin of 2.8. Phosphorus mildly elevated at 6.4. AST elevated at 563, down from 624. ALT 254 and unchanged. Alkaline phos normal at 64. CK 34,150, down somewhat from 45,330, 18 hours previously. The sputum pending. Chest x-ray shows the lung lisa to be clear. ASSESSMENT: 1. Aspiration pneumonitis. Doing rather well. On Zosyn to help with the infections associated with aspiration. Oxygenation somewhat improved though still a significant (A-a)DO2 gradient is present. In addition, he has a quite a bit of space ventilation as CO2 is normal with about 10 L of minute ventilation. 2. Rhabdomyolysis. Slightly improved. However, acute kidney injury has intervened. Kidney functions suggest complete absence of kidney function. 3. Hyperkalemia. Under better control. 4. Hepatic injury. Probably hypoxic, may be shocky from the initial insult. 5. Anoxic encephalopathy. Findings are certainly worrisome. This is at our 24-hour interval. Will see how things go over the next 24-48 hours. Initially discussed the case as best I could with the patient's , who speaks rather broken Uruguayan. I told her I would have an truck rental service attendant that we can talk with tomorrow so we can go over fine points in details. Later on, I was called back to the room to speak with other family members, some of whom spoke excellent [place]ayan. However, I explained that medically legally they could not be used as an truck rental service attendant. Discussed his condition and described the critical nature of his current condition. Again, I re-emphasized that we need a hospital truck rental service attendant for medical legal purposes. Will set up a family conference with a dairy cattle farm manager tomorrow. PLAN: 1. Continue current vent settings. 2. Fluids as per Nephrology. 3. Continue antibiotics for possible aspiration pneumonia. 4. Withhold sedatives as much as we can so we can follow his neurologic status. Overall time spent with critical care and discussions with the family of 55 minutes.
--- NOTE | 2016-08-24 20:40 | DRSVH ---
PROCEDURE: US RENAL SONOGRAM INDICATIONS: JUWAN TECHNIQUE: Real-time scanning was performed of the kidneys and bladder, with image documentation. COMPARISON: None. FINDINGS: Kidneys: Kidneys are normal in size. Right kidney measures 13.0 cm long; left kidney measures 12.4 cm long. Right renal cortical thickness is 1.9 cm; left renal cortical thickness is 2.5 cm. Renal c ortical echotexture is normal. No hydronephrosis or nephrolithiasis. No suspicious solid mass lesio ns. Right renal cyst measures 15 x 24 x 15 mm. Bladder: Espinoza catheter is in place. No further images were acquired. Miscellaneous: No free pelvic fluid. IMPRESSION: No hydronephrosis. Right renal cyst. Dictated by: Shobha Vale M.D. on 08/24/2016 at 20:37 Approved by: Shobha Vale M.D. on 08/24/2016 at 20:38
--- NOTE | 2016-08-24 22:28 | PCM.ADCARE ---
Advance Care Planning Note Purpose of Encounter: Date of Service: 08/24/16 Goals of care Parties in Attendance: Patient's , Mother, and Dr. Bran Decisional Capacity: Poor the patient is intubated and sedated Subjective: The patients diagnosis was discussed extensively with the family. At this time the family would like the patient to remain full code and have all measures of care performed. Plan: Diagnosis: Acute hypoxemic respiratory failure Metabolic acidosis Rhabdomyolysis JUWAN Hyperkalemia Elevated liver function tests Alcoholism Drug abuse CODE STATUS: Full code Time Spent Adv.Care Planning: Greater than 16 minutes Kamini Bran DO Aug 24, 2016 22:28
[2016-08-25] VITALS (13 sets, daily range): BP systolic 90–129; BP diastolic 52–81; PULSE 66–102; RESP 17–20; O2SAT 97–100
--- NOTE | 2016-08-25 05:48 | NUR ---
pt turned q2h and prn. Pt also positioned with bridge technique to lift buttocks off bed and CLRT active on bed.
[2016-08-25 06:03] LABS: Phosphorus 7.8 mg/dL (2.5-4.9)
--- NOTE | 2016-08-25 08:02 | DRSVH ---
PROCEDURE: X-RAY CHEST ONE VIEW, PORTABLE ([id number]) INDICATIONS: acute respiratory failure TECHNIQUE: One view of the chest was acquired. COMPARISON: [facility], CR, XR CHEST 1VW (PORTABLE), 08/24/2016, 6:58. FINDINGS: Surgical changes and devices: PICC line, ET tube and NG tube are stable. Lungs and pleura: No pleural effusions or pneumothorax. Lungs are clear. Mediastinum: Mediastinal contours appear normal. Heart size is normal. Bones and chest wall: No suspicious bony lesions. Overlying soft tissues appear unremarkable. IMPRESSION: No acute cardiopulmonary disease process. Dictated by: Swathi Jimenes MD, PhD on 08/25/2016 at 7:59 Approved by: Swathi Jimenes MD, PhD on 08/25/2016 at 8:00
[2016-08-25] MEDS: Piperacillin-Tazo 3.375 Gm Inj 3.375 GM in Dextrose 5% Minibag Plus 50 ML IV SCH ×2 (08:22→21:41)
[2016-08-25] MEDS: Propofol Inj 1,000,000 MCG in IV Premix 1 EACH IV SCH ×2 (08:23→18:35)
[2016-08-25] MEDS: Dextrose 5% 0.45% NaCl 1,000 ML IV SCH ×2 (08:23→18:35)
[2016-08-25] MEDS: Famotidine Inj 20 MG in IV Premix 1 EACH IV SCH (08:24)
[2016-08-25] MEDS: Chlorhexidine 0.12% 15 mL Oral Solution MT SCH ×4 (10:28→21:41)
--- NOTE | 2016-08-25 10:36 | ABG ---
DateTimeAnalyzed 10:20:00 -_ pH ____7.354 - 7.350 7.450 pCO2 ___31.5__ -mmHg 35.0 45.0 pO2 160 -mmHg 69.0 116 HCO3- ___17.1__ -mmol/L 22.0 26.0 ABE ___-6.9__ -mmol/L -2.0 2.0 tHb ___14.4__ -g/dL O2Hb ___98.1__ -% COHb ____0.6__ -% MetHb ____0.1__ -% sO2 ___98.8__ -% 25.0 FIO2 ___45.0__ -% PRVC 20 - PEEP ____8.0__ -cmH2O Vt __550.0__ -L Drawn By gj - Date/Time Notified____ 10:36:00 -_ Spontaneous_RR ___20.0__ -b/min Oxygen Device 1 VENTILATOR - Notified By gj - Notified Whom ____HUYNH - B 760 -mmHg tO2 ___20.1__ -Vol% Jeff test _Positive -
--- NOTE | 2016-08-25 11:12 | NUR ---
Optimization Engineer Services Request0:50AM Palliative Care called to request environmental officer services to assist with family communication related to pt.'s current clinical status and plan for ongoing care. Requested that correctional agency director call family to determine time for Palliative Care provider to meet today. Family includes spouse, Stella Ann ([phone]) and sister, Guillermina Ann ([phone]) JEFF Johnson, AARON Palliative Care Services
--- NOTE | 2016-08-25 11:48 | PCM.PNNEPH ---
Subjective Date of Service Aug 25, 2016 Subjective Serum creatinine continues to rise, 8.41. 120 mg of IV lasix given yesterday, total UOP ~ 745 ml. (+) Balance 8547 ml. Family is at the bedside. They gave us a permission to proceed with HD catheter placement and BRAKE REPAIR MECHANIC. Exam Vital Signs Vital Sign - Last Date Time Temp Pulse Resp B/P Pulse Ox O2 Delivery O2 Flow Rate FiO2 08/25/16 08:23 Ventilator 08/25/16 08:00 75 124/75 98 45 08/25/16 07:52 38.0 20 08/23/16 05:20 15 Intake and Output 08/24/16 08/24/16 08/25/16 Cumulative From/Thru 15:00 23:00 07:00 08/23/16 05:20 - 08/25/16 06:44 Intake Total 1773 ml 2076 ml 65659 ml Output Total 345 ml 200 ml 1895 ml Balance 1428 ml 1876 ml 8547 ml Intake IV Total 1713 ml 2016 ml 21201 ml Tube Irrigant 60 ml 60 ml 240 ml Output Urine Total 175 ml 150 ml 1325 ml Gastric Drainage Total 170 ml 50 ml 570 ml # Bowel Movements 4 1 7 Exam GENERAL: Intubated, sedated HEENT: Head is normocephalic and atraumatic. NECK: Supple, no elevation of JVD, No carotid bruits. No lymphadenopathy or thyromegaly. LUNGS: Clear to auscultation, equal breath sounds bilaterally, no wheezing, no rhonchi no rales. HEART: Normal S1/S2, Regular rate and rhythm, no murmurs, rubs or gallops. 2+ pules throughout. ABDOMEN: Soft, nondistended. Decreased bowel sounds. No hepatosplenomegaly was noted. EXTREMITIES: Without any cyanosis, clubbing, rash, lesions or edema. Lab and Diagnostics Result Diagram: 08/24/16 0520 08/25/16 0530 Microbiology Blood cultures pending MRSA swab pending X-Rays, CTs and MRIs 08/23/16 PROCEDURE: CT BRAIN WITHOUT CONTRAST ([id number]) IMPRESSION: No acute disease. 08/23/16 PROCEDURE: X-RAY CHEST ONE VIEW, PORTABLE ([id number]) IMPRESSION: Endotracheal tube appropriate in position. No focal infiltrate or abnormality is seen in the lungs. Additional Diagnostics ABG DateTimeAnalyzed 12:28:00 -_ pH ____7.289 - 7.350 7.450 pCO2 ___41.2__ -mmHg 35.0 45.0 pO2 228 -mmHg 69.0 116 HCO3- ___19.1__ -mmol/L 22.0 26.0 ABE ___-6.8__ -mmol/L -2.0 2.0 tHb ___17.1__ -g/dL O2Hb ___97.6__ -% COHb ____0.3__ -% MetHb ____1.0__ -% sO2 ___98.9__ -% 25.0 FIO2 ___70.0__ -% PRVC 550 - PEEP ____8.0__ -cmH2O Set_RR ___20.0__ -b/min Vt __550.0__ -L Drawn By NB - Date/Time Notified____ 12:36:00 -_ Oxygen Device 1 VENTILATOR - Notified By nb - [facility] - B 762 -mmHg tO2 ___23.9__ -Vol% Jeff test N/A - DateTimeAnalyzed 09:33:00 -_ pH ____7.269 - 7.350 7.450 pCO2 ___44.9__ -mmHg 35.0 45.0 pO2 ___63.0__ -mmHg 69.0 116 HCO3- ___19.9__ -mmol/L 22.0 26.0 ABE ___-6.7__ -mmol/L -2.0 2.0 tHb ___16.7__ -g/dL O2Hb ___87.3__ -% COHb ____0.7__ -% MetHb ____1.0__ -% sO2 ___88.8__ -% 25.0 FIO2 ___70.0__ -% PRVC 550 - PEEP ____5.0__ -cmH2O Set_RR ___14.0__ -b/min Drawn By NB - Date/Time Notified____ 09:47:00 -_ Spontaneous_RR ___24.0__ -b/min Oxygen Device 1 VENTILATOR - Notified By NB - Notified Whom ____A.MYA, RN - B 762 -mmHg tO2 ___20.4__ -Vol% Jeff test N/A - Plan Impression 1. Acute kidney injury secondary to rhabdomyolysis. 2. Rhabdomyolysis. 3. Acute hypoxic respiratory failure. 4. Resolved hyperkalemia 5. Acute transaminitis. 6. Polysubstance abuse. 7. Anion gap metabolic acidosis. 8. Hypocalcemia and hyperphosphatemia. Plan: We will arrange for temporary hemodialysis catheter placement. Start first hemodialysis today for 3 hours, UF as tolerated. Continue to monitor kidney function and urine output on a daily basis. Nephrotoxins, and adjust medication according to estimated GFR. Alejandro Tapia MD Aug 25, 2016 11:48
[2016-08-25 12:47] LABS: INR 0.98 ratio
--- NOTE | 2016-08-25 13:15 | NUR ---
NUTRITION FOLLOW UP: ASSESS: 41 YO M admitted to CCU after pt found unresponsive over the night though he still was breathing with a pulse. Pt with aspiration pneumonia and rhabdomyolysis. Pt remains intubated. Pt has been NPO X 2 days. Palliative consult planned. Plan to await EEG results before starting enteral nutrition. Family is Burkinan speaking. Plan to start dialysis today. PMHx: No medical history with the exception of ETOH abuse. DIET: NPO. LABS: Reviewed. BUN 64, Cr 8.41, Glu 124, Ca 6.7, Phos 7.8, AST 403, ALT 235, Alb 2.5 MEDICATIONS: Reviewed. Fentanyl, Propofol. GI: No stool reported. SKIN: No issues reported. ANTHROPOMETRICS: Current Wt: 102.2 kg, BMI: 33.3 kg/m2, Admit wt: 95.1 kg. IBW: 75.45 kg (114% IBW) ESTIMATED NEEDS (VENT): Calories: 3350-0069 kcal (20-25 kcal/kg BW) Protein: 130-155 g protein (1.5-1.8 g/kg BW) Fluid: Approx. 2591 mL (30 mL/kg BW) NUTRITION DIAGNOSIS: 1) Inadequate oral intake related to inability to consume sufficient energy, as evidenced by NPO/vent status.---PERSISTS. INTERVENTION: 1) Will await plan of care decisions. 2) If family desires full care, recommend initiation of enteral nutrition in the next 24 hours. Recommend Nepro starting at 10 ml/hr, once tolerance established, advance 10 ml q 4 hr to goal rate of 50 ml/hr. At goal TF will provide 1980 kcal, 89 g protein; meeting 100% calorie, 68% of protein needs. Once tolerance established, add 1 packet of Prosource liquid protein 4X per day to provide a total of 133 g protein; meeting 100% protein needs. MONITOR/EVALUATE: NPO/vent status, labs, POC, nutrition support, GI/nutrition status. Follow per high nutrition risk guidelines.
--- NOTE | 2016-08-25 13:23 | PCM.PNMED ---
Subjective Date of Service Aug 25, 2016 Subjective Pulmonary/critical care service Chino Ybarra (Roni) PGY3 and Attending Dr. Daniel Patient is a 41-year-old male with medical history significant for EtOH abuse, found obtunded with physical signs aspiration by , intubated for airway protection. Patient is currently in the ICU for hypoxic respiratory failure, aspiration pneumonia, anoxic brain injury, and rhabdomyolysis with secondary JUWAN No overnight events, Pt pulse oximetry 96%, with an FiO2 45%, PEEP of 8, respiratory rate 20, tidal volume 550, ABG shows pH of 7.35, with PCO2 31.5, PO2 160 mmHg and bicarbonate 17.1. Chest x-ray remains unremarkable and unchanged. Blood pressure is stable 115/71, heart rate 77's normal sinus. Patient output is scant over night. Creatinine function severely decreased, most likely "0" at this moment creatinine 8.41. Patient does have a metabolic acidosis with a gap of 21. Abd US [place] [address]. He has been following and will dialyze him today. LFT remains elevated secondary to probable EtOH-induced hepatitis, AST/ALT 403/235. No bilirubin or alkaline phosphatase elevation. Lipase unremarkable. CBC with WBC 17.9. Patient is currently on Zosyn and azithromycin. Exam Vital Signs Vital Sign - Last Date Time Temp Pulse Resp B/P Pulse Ox O2 Delivery O2 Flow Rate FiO2 08/25/16 12:30 38.1 70 116/66 98 Mechanical Ventilator 40 08/25/16 07:52 20 08/23/16 05:20 15 Intake and Output 08/24/16 08/24/16 08/25/16 Cumulative From/Thru 15:00 23:00 07:00 08/23/16 05:20 - 08/25/16 06:44 Intake Total 1773 ml 2076 ml 96667 ml Output Total 345 ml 200 ml 1895 ml Balance 1428 ml 1876 ml 8547 ml Intake IV Total 1713 ml 2016 ml 03041 ml Tube Irrigant 60 ml 60 ml 240 ml Output Urine Total 175 ml 150 ml 1325 ml Gastric Drainage Total 170 ml 50 ml 570 ml # Bowel Movements 4 1 7 Exam General: Intubated sedated HEENT: Normocephalic, atraumatic. Sclera anicteric, pinpoint pupil sluggishly reactive to light Neck: No JVD, No bruits. No lymphadenopathy or thyromegaly. Cardiovascular: Regular rate and rhythm with no murmurs, rubs, or gallops appreciated Pulmonary: b/l air sound with no crackles, wheezes, or rhonchi. no use of accessory muscles. Abdomen: +Bowel sound, Soft, nontender, nondistended. Extremities: No clubbing or cyanosis, no lymphedema, no b/l lower leg edema Skin: Normal temperature, turgor, and texture; no rash. No visualized skin ulcer. Neurological: Unable to evaluate as patient is sedated and intubated Lab and Diagnostics Result Diagram: 08/24/16 0520 08/25/16 0530 Microbiology Blood cultures pending MRSA swab pending X-Rays, CTs and MRIs 08/23/16 PROCEDURE: CT BRAIN WITHOUT CONTRAST ([id number]) IMPRESSION: No acute disease. 08/23/16 PROCEDURE: X-RAY CHEST ONE VIEW, PORTABLE ([id number]) IMPRESSION: Endotracheal tube appropriate in position. No focal infiltrate or abnormality is seen in the lungs. Additional Diagnostics ABG DateTimeAnalyzed 12:28:00 -_ pH ____7.289 - 7.350 7.450 pCO2 ___41.2__ -mmHg 35.0 45.0 pO2 228 -mmHg 69.0 116 HCO3- ___19.1__ -mmol/L 22.0 26.0 ABE ___-6.8__ -mmol/L -2.0 2.0 tHb ___17.1__ -g/dL O2Hb ___97.6__ -% COHb ____0.3__ -% MetHb ____1.0__ -% sO2 ___98.9__ -% 25.0 FIO2 ___70.0__ -% PRVC 550 - PEEP ____8.0__ -cmH2O Set_RR ___20.0__ -b/min Vt __550.0__ -L Drawn By NB - Date/Time Notified____ 12:36:00 -_ Oxygen Device 1 VENTILATOR - Notified By nb - Notified Whom Dr Nizamuddin/Dr. Kendregan - B 762 -mmHg tO2 ___23.9__ -Vol% Jeff test N/A - DateTimeAnalyzed 09:33:00 -_ pH ____7.269 - 7.350 7.450 pCO2 ___44.9__ -mmHg 35.0 45.0 pO2 ___63.0__ -mmHg 69.0 116 HCO3- ___19.9__ -mmol/L 22.0 26.0 ABE ___-6.7__ -mmol/L -2.0 2.0 tHb ___16.7__ -g/dL O2Hb ___87.3__ -% COHb ____0.7__ -% MetHb ____1.0__ -% sO2 ___88.8__ -% 25.0 FIO2 ___70.0__ -% PRVC 550 - PEEP ____5.0__ -cmH2O Set_RR ___14.0__ -b/min Drawn By NB - Date/Time Notified____ 09:47:00 -_ Spontaneous_RR ___24.0__ -b/min Oxygen Device 1 VENTILATOR - Notified By NB - Notified Whom ____A.MAY, RN - B 762 -mmHg tO2 ___20.4__ -Vol% Jeff test N/A - Assessment & Plan Patient is a 41-year-old male with no significant medical history however does have a significant drinking problem presented to [facility] after patient found unresponsive with aspirated noted. Patient was subsequently intubated for airway protection and admitted for anoxic brain injury and rhabdomyolysis. Problem list Anoxic brain injury Aspiration pneumonitis Rhabdomyolysis Acute kidney injury EtOH abuse Patient likely had anoxic brain injury secondary to aspiration due to EtOH intoxication, became unresponsive, immobile for at least 12 hours, thus causing rhabdomyolysis and subsequent acute kidney injury. Goal will be to determine the extent of anoxic brain injury while patient gets dialysis. Hypoxic respiratory failure - Intubated and sedated - A.m PO2 160 mmHg, reduce PEEP 5, decrease FiO2 to 40% - Daily ABG and chest x-ray Anoxic brain injury - Mentation status difficult to evaluate given patient is sedated on propofol - Initial CT scan unremarkable, however on repeat CT scan showed hypodensity in the globus pallidus - EEG order to evaluate - Family meeting at 1pm on 08/26 to discuss status - Consider Neurology consultation Dr. Lares. Aspiration pneumonitis - Patient with elevated white count with neutrophil is 81% - Antibiotics Zosyn and azithromycin Rhabdomyolysis - Secondary to immobility - Hydrate NS half-normal saline - Trend CK Acute kidney injury - Secondary to rhabdomyolysis - Hydrate as above - Appreciate nephrology continue following - Possible dialysis given that patient creatinine significantly increase with decreasing urine output. Alcohol abuse - Concern for EtOH withdrawal, seizures - Currently on propofol - BIS monitoring Critical care time 1.5h GI Prophylaxis: Proton Pump Inhibitor VTE Mechanical Devices: Intermittant Pneumatic CD Resuscitation Status: CPR: Attempt Resuscitation Attending Statement The patient was seen and examined together with Dr. Ybarra on 08/25/2016 and I agree with the history, exam and plan as outlined in the note above. Chino Ybarra DO Aug 25, 2016 13:06 Marlo Daniel MD Sep 06, 2016 16:37
--- NOTE | 2016-08-25 14:08 | NUR ---
Palliative care note D/A: Palliative care referral kindly received today from Dr. Cohen for assistance with goals of care. Pt is 41 year old male, who is thought to have ingested a large amount of tequila and passed out, later vomiting and unable to clear his airway. He is currently in the CCU and and currently vented. Family is primarily Niuean speaking and medical staff report that there may be some familial strife happening with current high stress situation. Pt spouse Stella Ann can be reached at [phone] Pt sister Guillermina Ann can be reached at [phone] Pt is noted to be self insured. Phone call received from [employer] services. They cannot schedule meeting time for today due to schedule conflicts. Arranged for FCTM on 08/26/16 at 1:00 pm with Elise. Use of phone language line ([phone]) and work with Moshe. He leaves message for pt spouse indicating that PC team is working with her and would like to schedule a meeting time with her on 08/26/16 at 1:00 when an group burner machine will be available in person. Also ask her to notify rest of pt family as to meeting. Have left this workers phone number at [phone]. P: Palliative care to follow. Genet George JOB ANALYSIS MANAGER, CCM
--- NOTE | 2016-08-25 15:20 | PCM.PNMED ---
Subjective Date of Service Aug 25, 2016 Subjective Overnight Events: None Today, Mr. Ann remains intubated and sedated. He has been having very minimal urine output. He is still unresponsive to name and not following commands. He does withdraw minimally to pain. After discussion with the , she mentions his last use of cocaine and meth was probably at least 5 months ago. No other known drug use. Exam Vital Signs Vital Sign - Last Date Time Temp Pulse Resp B/P Pulse Ox O2 Delivery O2 Flow Rate FiO2 08/25/16 05:22 77 114/70 98 45 08/25/16 04:30 36.9 20 Mechanical Ventilator 08/23/16 05:20 15 Intake and Output 08/24/16 08/24/16 08/25/16 Cumulative From/Thru 15:00 23:00 07:00 08/23/16 05:20 - 08/25/16 05:33 Intake Total 1773 ml 8366 ml Output Total 345 ml 1695 ml Balance 1428 ml 6671 ml Intake IV Total 1713 ml 8186 ml Tube Irrigant 60 ml 180 ml Output Urine Total 175 ml 1175 ml Gastric Drainage Total 170 ml 520 ml # Bowel Movements 4 6 Exam General: Patient intubated and sedated, no sign of distress HEENT: Normocephalic, atraumatic. Pupils equal, round, reactive to light. Cardiovascular: Regular rate and rhythm with no murmurs, rubs, or gallops appreciated Pulmonary: Clear to auscultation anteriorly with equal air sounds bilaterally, intubated. Abdomen: Bowel tones present. Soft, nondistended. Extremities: No clubbing, cyanosis, edema, or lymphadenopathy appreciated. Skin: Large erythemetous region around sacrum with open wound about 3 inches in diameter. Similar looking presentation at upper thorax with some blisters. Neurological: Unable to assess as patient sedated. He is not responding to commands at this time. He does withdraw somehwat from painful stimuli. He did have some head movement when assessing pupillary light reflex. Lab and Diagnostics Item Value Date Time Sodium Level 137 mEq/L 08/24/16 1700 Potassium Level 4.6 mEq/L 08/24/16 1700 Chloride Level 99 mEq/L 08/24/16 1700 Carbon Dioxide Level 18 mmol/L 08/24/16 1700 Creatinine 8.41 mg/dL *H 08/25/16 0530 Calcium Level 6.7 mg/dL *L 08/25/16 0530 Phosphorus Level 7.8 mg/dL H 08/25/16 0530 Glucose Level 124 mg/dL H 08/25/16 0530 Blood Urea Nitrogen 64 mg/dL H 08/25/16 0530 Carbon Dioxide Level 17 mmol/L L 08/25/16 0530 Chloride Level 101 mEq/L 08/25/16 0530 Potassium Level 4.5 mEq/L 08/25/16 0530 Sodium Level 139 mEq/L 08/25/16 0530 Aspartate Amino Transf (AST/SGOT) 403 U/L H 08/25/16 0530 Alanine Aminotransferase (ALT/SGPT) 235 U/L H 08/25/16 0530 Aspartate Amino Transf (AST/SGOT) 563 U/L H 08/24/16 0520 Alanine Aminotransferase (ALT/SGPT) 254 U/L H 08/24/16 0520 Total Creatine Kinase 32243 U/L H 08/24/16 0520 Total Creatine Kinase 06000 U/L H 08/25/16 0530 Lactate Dehydrogenase 927 U/L H 08/25/16 0530 Alkaline Phosphatase 56 U/L 08/25/16 0530 Alkaline Phosphatase 64 U/L 08/24/16 0520 Result Diagram: 08/24/16 0520 08/24/16 1700 Microbiology Blood cultures pending MRSA swab pending X-Rays, CTs and MRIs 08/23/16 PROCEDURE: CT BRAIN WITHOUT CONTRAST ([id number]) IMPRESSION: No acute disease. 08/23/16 PROCEDURE: X-RAY CHEST ONE VIEW, PORTABLE ([id number]) IMPRESSION: Endotracheal tube appropriate in position. No focal infiltrate or abnormality is seen in the lungs. Additional Diagnostics ABG DateTimeAnalyzed 12:28:00 -_ pH ____7.289 - 7.350 7.450 pCO2 ___41.2__ -mmHg 35.0 45.0 pO2 228 -mmHg 69.0 116 HCO3- ___19.1__ -mmol/L 22.0 26.0 ABE ___-6.8__ -mmol/L -2.0 2.0 tHb ___17.1__ -g/dL O2Hb ___97.6__ -% COHb ____0.3__ -% MetHb ____1.0__ -% sO2 ___98.9__ -% 25.0 FIO2 ___70.0__ -% PRVC 550 - PEEP ____8.0__ -cmH2O Set_RR ___20.0__ -b/min Vt __550.0__ -L Drawn By NB - Date/Time Notified____ 12:36:00 -_ Oxygen Device 1 VENTILATOR - Notified By nb - Notified Whom Dr Nizachristianoin/Dr. Kendregan - B 762 -mmHg tO2 ___23.9__ -Vol% Jeff test N/A - DateTimeAnalyzed 09:33:00 -_ pH ____7.269 - 7.350 7.450 pCO2 ___44.9__ -mmHg 35.0 45.0 pO2 ___63.0__ -mmHg 69.0 116 HCO3- ___19.9__ -mmol/L 22.0 26.0 ABE ___-6.7__ -mmol/L -2.0 2.0 tHb ___16.7__ -g/dL O2Hb ___87.3__ -% COHb ____0.7__ -% MetHb ____1.0__ -% sO2 ___88.8__ -% 25.0 FIO2 ___70.0__ -% PRVC 550 - PEEP ____5.0__ -cmH2O Set_RR ___14.0__ -b/min Drawn By NB - Date/Time Notified____ 09:47:00 -_ Spontaneous_RR ___24.0__ -b/min Oxygen Device 1 VENTILATOR - Notified By NB - Notified Whom ____A.LALO, RN - B 762 -mmHg tO2 ___20.4__ -Vol% Jeff test N/A - Assessment & Plan Santiago Ann is a 41 year old male with no known past medical history who came in unresponsive after being found with vomit around him, now sedated and intubated for acute hypoxemic respiratory failure secondary to aspiration. Acute Hypoxemic Respiratory Failure, present on admission, active Secondary to asipiration and intoxication. Patient has had large volume of vomit suctioned out in the ED. Chest X-ray personally reviewed and is unremarkable for pneumonia. Differential includes anoxic brain injury as patient has been unresponsive since admission. - Currently intubated and sedated. - Currently sedated with Propofol and fentanyl. - X-ray Image reviewed today patient still does not look like he has any signs of aspiration pneumonia - We will continue to treat with Zosyn as this still may be a possibility of aspiration pneumonia - Leukocytosis improving and downtrending - ICU team is following - Will do CT head and EEG today to assess neurologic status Metabolic Acidosis, present on admission, active Likely secondary to lactic acidosis - Monitor CMP Rhabdomyolysis, present on admission, [place] [address]. Likely secondary to being in one position for 9 hours. Patient has large erythematous regions at pressure points of sacrum and upper thorax with open wound at sacrum. - IV fluids 100 mL/hr - Monitor CK - Wound care consult - Nephrology consulted and following cased discussed with Dr. Whatley today Acute Kidney Injury, present on admission, active Cr on admission at 3.52 and increasing after admission. Unknown history of kidney injury. - IV fluids at 100 mL/hr - Nephrology (Dr. Haynes) currently following case and will do hemodialysis today - Continue to monitor Hyperkalemia, present on admission (resolved) - Current potassium is 4.6 - Continue to monitor Elevated Liver Function Tests, present on admission, active Likely due to chronic alcohol use - Currently trending down - Continue to monitor Alcohol abuse -Patient currently sedated no need to institute CIWA protocol at this time Drug abuse -Patient is a known user of cocaine and ice -Per family, last known use is around 5 months ago. Code Status: Full Code Disposition: Patient currently intubated and sedated patient does seem to be progressing however his kidney failure seems to be worsening. Today we will do hemodialysis per nephrology. Case was discussed with both nephrology (Dr. Haynes ) and critical care (Dr. Daniel) today. GI Prophylaxis: Proton Pump Inhibitor VTE Mechanical Devices: Intermittant Pneumatic CD Resuscitation Status: CPR: Attempt Resuscitation Attending Statement The patient was seen and examined together with Dr. Rodriguez on 08/25/2016 and I agree with the history, exam and plan as outlined in the note above. . Enrique Rodriguez DO Aug 25, 2016 06:32 Betito Arias MD Aug 28, 2016 07:56
--- NOTE | 2016-08-25 16:14 | PCM.PROC ---
Procedure Note Date of Service: Aug 25, 2016 Pre Procedure Diagnosis: JUWAN Post Procedure Diagnosis: JUWAN Procedure: Nontunneled HD catheter placement Provider and Deportation Examiner: Dr. Tapia Deportation Examiner: Dr. Enrique Rodriguez. Indication for Procedure: Requirement of hemodialysis Procedure Details: Consent: Detailed explanation of the procedure, treatment options, risks including but not limited to infection and bleeding, and benefits were explained to family. A written informed consent was obtained. Technique: A time out was preformed identifying the correct procedure, the correct location with the nursing staff. The right groin was prepped with 2% chlorhexidine and draped with a full length sterile sheet in the usual fashion. 1% lidocaine was administered subcutaneously for local anesthesia. The right femoral vein was accessed under ultrasound guidance with an 18 gauge thin wall needle. A 20 cm nontunneled catheter was inserted via the Seldinger technique. Blood was withdrawn from all lumens and flushed with normal saline. The catheter was sutured in place and a sterile dressing was applied over the site prior to removal of drapes. The patient tolerated the procedure well and there were no complications. EBL: Complication: 5 mL. Post Procedure Plan: First HD today for 3hr. Alejandro Tapia MD Aug 25, 2016 16:14
--- NOTE | 2016-08-25 16:30 | DRSVH ---
PROCEDURE: CT BRAIN WITHOUT CONTRAST ([id number]) INDICATIONS: pinpoint pupil, anoxic brain injury. TECHNIQUE: Noncontrast 4.5 mm thick angled axial sections acquired from the foramen magnum to the vertex, with c oronal reformats. COMPARISON: [facility], CT, CT BRAIN WO CON, 08/23/2016, 5:58. FINDINGS: Image quality: Excellent. CSF spaces: Basal cisterns are patent. No extra-axial fluid collections. Ventricles are normal in size and shape. Brain: No midline shift. No intracranial masses or hemorrhage. The bilateral globus pallidus are di ffusely hypodense. Isaacs-white differentiation is otherwise normal. Skull and face: Calvarium and visualized facial bones are intact, without suspicious lesions. Sinuses: Visualized sinuses and mastoids are clear. IMPRESSION: 1. Diffuse bilateral hypodensity of the globus pallidus. This is a new finding when compared with the study dated 08/23/16. Differential considerations include anoxic injury, carbon monoxide neurotoxicit y, excessive alcohol ingestion, and methanol or ethylene glycol ingestion. These findings were discussed with Dr. Ybarra at 2:48 PM on 08/25/16. Dictated by: Dinora Kang M.D. on 08/25/2016 at 16:17 Approved by: Dinora Kang M.D. on 08/25/2016 at 16:28
--- NOTE | 2016-08-25 17:49 | NUR ---
Status Continues on PRVC with 40% fi02 and 5 of peep. Propofol and fentanyl gtts infusing for pain control and ventilator tolerance. Grimaces to painful stimuli. Gag and corneal reflex intact. No purposeful movement noted in extremities. SR per furniture maker. Pressure stable. Afebrile. Espinoza to DD, > 100cc urine produced this shift. Dialyzing. Will continue to monitor.
--- NOTE | 2016-08-25 19:50 | NUR ---
Dialysis note: S/P catheter placement 3 hours tx Zero net UF Right femoral catheter, dsg changed, sutures intact Hepatitis serologies drawn Pls see DTR for VS details Qb 300 w/ cath limbs reversed A-V V-A due to poor cath function Heparin prime given On vent @ 40% FiO2 w/ sat in the 90's Tolerated tx, cont'd on sedation Catheter flushed, heparin dwelled and secured Stable condition at end of tx Report given to Rufina BIRCH
[2016-08-25] MEDS: Azithromycin Inj 500 MG in Dextrose 5% w/Vial Mate 250 ML IV SCH (20:45)
[2016-08-26] VITALS (13 sets, daily range): BP systolic 107–148; BP diastolic 54–80; PULSE 63–79; RESP 17–20; O2SAT 95–100
[2016-08-26] MEDS: Propofol Inj 1,000,000 MCG in IV Premix 1 EACH IV SCH ×2 (00:10→09:36)
[2016-08-26] MEDS: Chlorhexidine 0.12% 15 mL Oral Solution MT SCH ×6 (00:52→21:26)
[2016-08-26] MEDS: Dextrose 5% 0.45% NaCl 1,000 ML IV SCH ×3 (05:26→23:00)
[2016-08-26 05:49] LABS: BASOPHILS % (AUTO) 0.2 % (0-3); EOSINOPHILS % (AUTO) 0.9 % (0-5); MONOCYTES % (AUTO) 10.8 % (4-12); Mean Corpuscular Hemoglobin 28.7 pg (27.0-35.0); Mean Corpuscular Volume 85.4 fL (81-100); NEUTROPHILS % (AUTO) 73.6 % (40-74); Platelet Count 121 bil/L (150-400)
[2016-08-26 06:09] LABS: Magnesium 2.1 mg/dL (1.6-2.6); Phosphorus 5.1 mg/dL (2.5-4.9)
[2016-08-26] MEDS: Piperacillin-Tazo 3.375 Gm Inj 3.375 GM in Dextrose 5% Minibag Plus 50 ML IV SCH ×2 (08:36→21:26)
[2016-08-26] MEDS: Famotidine Inj 20 MG in IV Premix 1 EACH IV SCH (08:36)
[2016-08-26] MEDS: Heparin 5,000 Unit/mL Inj SUBQ SCH ×2 (09:37→16:22)
--- NOTE | 2016-08-26 09:51 | DRSVH ---
PROCEDURE: X-RAY CHEST ONE VIEW, PORTABLE ([id number]) INDICATIONS: intubated ET tube positioning TECHNIQUE: One view of the chest was acquired. COMPARISON: [facility], CR, XR CHEST 1VW (PORTABLE), 08/25/2016, 6:24. FINDINGS: Surgical changes and devices: There is an endotracheal tube redemonstrated with the tip approximately 6.2 cm from the hafsa. A nasogastric tube is again noted extending into the stomach. Lungs and pleura: No pleural effusions or pneumothorax. Lungs are clear. Mediastinum: Mediastinal contours appear normal. Heart size is normal. Bones and chest wall: No suspicious bony lesions. Overlying soft tissues appear unremarkable. IMPRESSION: 1. Endotracheal tube tip approximately 6.3 cm from the hafsa. Consider advancement by approximatel y 2 cm. Dictated by: Bruce Valadez M.D. on 08/26/2016 at 9:48 Approved by: Bruce Valadez M.D. on 08/26/2016 at 9:49
[2016-08-26 10:11] LABS: INR 0.95 ratio
--- NOTE | 2016-08-26 10:44 | PCM.PNNEPH ---
Subjective Date of Service Aug 26, 2016 Subjective is at the bedside. He remains intubated and sedated. Responsive to painful stimuli and some verbal stimuli. First HD performed yesterday. He tolerated it well. Remains oliguric. Exam Vital Signs Vital Sign - Last Date Time Temp Pulse Resp B/P Pulse Ox O2 Delivery O2 Flow Rate FiO2 08/26/16 07:48 72 108/54 100 40 08/26/16 07:34 38.4 18 Mechanical Ventilator 08/23/16 05:20 15 Intake and Output 08/25/16 08/25/16 08/26/16 Cumulative From/Thru 15:00 23:00 07:00 08/23/16 05:20 - 08/26/16 06:43 Intake Total 1256 ml 1740 ml 29638 ml Output Total 175 ml 250 ml 2320 ml Balance 1081 ml 1490 ml 40513 ml Intake IV Total 1256 ml 1740 ml 34895 ml Tube Irrigant 240 ml Output Urine Total 75 ml 50 ml 1450 ml Gastric Drainage Total 100 ml 200 ml 870 ml Ultrafiltrate 0 ml 0 ml # Bowel Movements 1 8 Exam GENERAL: Intubated, sedated, responsive to painful stimuli. HEENT: Head is normocephalic and atraumatic. NECK: Supple, no elevation of JVD, No carotid bruits. No lymphadenopathy or thyromegaly. LUNGS: Clear to auscultation, equal breath sounds bilaterally, no wheezing, no rhonchi no rales. HEART: Normal S1/S2, Regular rate and rhythm, no murmurs, rubs or gallops. 2+ pules throughout. ABDOMEN: Soft, nondistended. Decreased bowel sounds. No hepatosplenomegaly was noted. EXTREMITIES: Without any cyanosis, clubbing, rash, lesions or edema. right femoral HD cath in place. Lab and Diagnostics Result Diagram: 08/26/16 0530 08/26/16 0530 Microbiology Blood cultures pending MRSA swab pending X-Rays, CTs and MRIs 08/23/16 PROCEDURE: CT BRAIN WITHOUT CONTRAST ([id number]) IMPRESSION: No acute disease. 08/23/16 PROCEDURE: X-RAY CHEST ONE VIEW, PORTABLE ([id number]) IMPRESSION: Endotracheal tube appropriate in position. No focal infiltrate or abnormality is seen in the lungs. Additional Diagnostics ABG DateTimeAnalyzed 12:28:00 -_ pH ____7.289 - 7.350 7.450 pCO2 ___41.2__ -mmHg 35.0 45.0 pO2 228 -mmHg 69.0 116 HCO3- ___19.1__ -mmol/L 22.0 26.0 ABE ___-6.8__ -mmol/L -2.0 2.0 tHb ___17.1__ -g/dL O2Hb ___97.6__ -% COHb ____0.3__ -% MetHb ____1.0__ -% sO2 ___98.9__ -% 25.0 FIO2 ___70.0__ -% PRVC 550 - PEEP ____8.0__ -cmH2O Set_RR ___20.0__ -b/min Vt __550.0__ -L Drawn By NB - Date/Time Notified____ 12:36:00 -_ Oxygen Device 1 VENTILATOR - Notified By nb - Notified Whom [facility]/Dr. Kendregan - B 762 -mmHg tO2 ___23.9__ -Vol% Jeff test N/A - DateTimeAnalyzed 09:33:00 -_ pH ____7.269 - 7.350 7.450 pCO2 ___44.9__ -mmHg 35.0 45.0 pO2 ___63.0__ -mmHg 69.0 116 HCO3- ___19.9__ -mmol/L 22.0 26.0 ABE ___-6.7__ -mmol/L -2.0 2.0 tHb ___16.7__ -g/dL O2Hb ___87.3__ -% COHb ____0.7__ -% MetHb ____1.0__ -% sO2 ___88.8__ -% 25.0 FIO2 ___70.0__ -% PRVC 550 - PEEP ____5.0__ -cmH2O Set_RR ___14.0__ -b/min Drawn By NB - Date/Time Notified____ 09:47:00 -_ Spontaneous_RR ___24.0__ -b/min Oxygen Device 1 VENTILATOR - Notified By NB - Notified Whom ____A.MAY, RN - B 762 -mmHg tO2 ___20.4__ -Vol% Jeff test N/A - Plan Impression 1. Acute kidney injury secondary to rhabdomyolysis. requiring HD. First treatment on 08/25. 2. Rhabdomyolysis. 3. Acute hypoxic respiratory failure. 4. Resolved hyperkalemia 5. Acute transaminitis. 6. Polysubstance abuse. 7. Anion gap metabolic acidosis. 8. Hypocalcemia and hyperphosphatemia. Plan: Second hemodialysis today for 3.5 hours, UF 1L. Continue to monitor kidney function and urine output on a daily basis. Nephrotoxins, and adjust medication according to estimated GFR. Alejandro Tapia MD Aug 26, 2016 10:44
--- NOTE | 2016-08-26 11:02 | CONS ---
[address] [address] CONSULTATION REPORT PATIENT: SANDY SOSA : 1975 MR#: [id number] ADMIT: 08/23/2016 JOB ID: [id number] DATE OF SERVICE: 08/26/2016 REASON FOR CONSULTATION: Fevers in an ICU patient. HISTORY OF PRESENT ILLNESS: The patient is a 41-year-old gentleman with a minimal past medical history primarily evolving around polysubstance abuse, but not apparently injection drug use. Drugs used in the past include meth, cocaine, and alcohol. The patient was found down by family on August 23 and at that time he was not breathing, though he did have a pulse. Patient was intubated in the field and transported to this facility and has been in the ICU for the past three days. He was started on empiric antibiotics including azithromycin and Zosyn as there was gross evidence of aspiration prior to and shortly after admission. The patient has been stable from a hemodynamic point of view in the ICU as he has not been on vasopressor agents and is currently stable from a cardiac as well as respiratory status though he remains on the ventilator with relatively low settings. There is an active investigation ongoing as to whether or not the patient has suffered an anoxic brain injury and if so how severe. Neurology is involved in the case. The Infectious Disease question of interest is whether or not there is an ongoing infection. Note that when the patient first came in he had fevers for about 12 hours, which resolved and were gone for a day or so and now has recrudescence of very low-grade fevers. His total time in the hospital now is just about exactly 72 hours. No additional history other than that stated above is available as to the exact events that led to his respiratory arrest and aspiration pneumonia. The patient is intubated, sedated, and obviously no additional history will be available from him this morning. PAST MEDICAL HISTORY: Polysubstance abuse including alcohol, meth, and cocaine. SOCIAL HISTORY: Is not known beyond that. We cannot ask anymore questions. FAMILY HISTORY: Likewise unknown in this intubated and non-sedated gentleman. REVIEW OF SYSTEMS: Not possible. PHYSICAL EXAMINATION: Reveals a febrile gentleman lying supine in the ICU. His current temperature is 38.4, blood pressure is stable at 108/54, no vasopressors. Pulse 72 and sinus rhythm on the monitor. He is saturating very well on 35% and 5 of PEEP on the ventilator. Head is without trauma. Eyes have some degree of dysconjugate gaze to my exam. Pupils are 2-3 mm equal and do not respond to light, but they are very small. He has no conjunctivitis or scleral icterus. Nose appears normal. Oral endotracheal tube and orogastric tube in good position. Lines include a PICC line on the right a peripheral IV in the left antecubital fossa and a right groin dialysis line that was placed yesterday. Neck is completely supple. There is no adenopathy, no JVD, and no degree of stiffness whatsoever. Lungs are relatively clear anteriorly. Cardiac tones regular rate and rhythm without murmur. Abdomen soft and nontender without organomegaly. Penis and scrotum were normal. Espinoza catheter is present. No inguinal adenopathy. The extremities are well perfused. Patient has no evidence of synovitis or skin breakdown. Obviously there is no neuro exam possible here as the patient is completely unresponsive on the ventilator. LABORATORIES: Include white count when he came in 22,000 and is now down to 10,000. Diff is essentially normal at this point, though platelets are low at 121. Creatinine basically 8 this morning, it was 8.4 yesterday, 7.9 today. AST is 289. ALT 177. Alk phos is normal. CPK was 45,000 when he came in, it is now down to 15,000. Procalcitonin was measured today at 8.6. Urinalysis 0-5 white cells on admission. Tox screen on admission negative for salicylates, amphetamine, and alcohol. Serologic studies negative hepatitis B and hep C. Micro studies from admission negative blood cultures, negative MRSA screen, and a sputum obtained from the endotracheal tube on the is basically negative, some light normal marcia. Many polys were seen and this could be consistent with a diagnosis of aspiration. We compared today's chest x-rays to ones done yesterday. Basically there is minimal bibasilar infiltrate, but very minimal. More importantly probably a brain CT done yesterday morning shows bilateral hypodensity of the globus pallidus new from the CT done two days prior consistent with anoxic brain injury. IMPRESSION: This extremely unfortunate gentleman who was found down with presumably prolonged respiratory insufficiency or failure. He has now been in the intensive care unit 72 hours and is not awakening and certainly the history, physical, and CT findings are very worrisome for profound brain injury. From an infection point of view there is no question that the patient aspirated. He has been appropriately treated with azithromycin and Zosyn since admission, which should be more than adequate for an out of hospital aspiration event. At this point, I am not unduly concerned about untreated infection and wonder if these low-grade fevers could be a manifestation of anoxic encephalopathy and severe brain injury. The patient is known to have acute renal failure with ongoing rhabdomyolysis and a dialysis catheter has already been placed but it does not look in any way infected and it has only been in place for less than a day so I do not think infection of that line is likely though the femoral lines are obviously at high risk for infection. Likewise fungal infection would seem extremely unlikely. The patient has only been in the hospital three days on broad-spectrum antibiotics. The patient does have some degree of hepatitis at this point with elevated LFTs which are likely due to shock though the possibility of an underlying chemically induced hepatitis certainly exists. Alcoholic hepatitis in and of itself is capable of producing fevers which could explain what is going on with his LFTs as well as a low-grade fever. RECOMMENDATIONS: 1. I continue the azithromycin through today and then stop it as that will be a 1.5 g dose. 2. I would continue the Zosyn for presumed aspiration pneumonia with a plan to continue for seven days total. 3. Will continue to follow this complex patient with you, but at this point I do not think a workup for esoteric infections is indicated given the relatively clear cut nature of this story. 4. To complete the database I would check an HIV and a QuantiFERON Gold.
--- NOTE | 2016-08-26 11:10 | NUR ---
NUTRITION FOLLOW UP: ASSESS: 41 YO M admitted to CCU after pt found unresponsive. Pt with aspiration pneumonia and rhabdomyolysis. Pt remains intubated. Pt has been NPO X 3 days. Palliative is to have family mtg today. Pt started dialysis 08/25. EEG is still pending. Received verbal to start TF today. PMHx: No medical history with the exception of ETOH abuse. DIET: NPO. LABS: Reviewed. BUN 64, Cr 8.41, Glu 124, Ca 6.7, Phos 7.8, AST 403, ALT 235, Alb 2.5 MEDICATIONS: Reviewed. Fentanyl, Propofol @5.7ml/hr to provide 150kcal/day. GI: BMx1 08/26 SKIN: wound care pending. Per nursing notes, pt has stg 2 PU on buttock, heel and scapula ANTHROPOMETRICS: Current Wt: 104.3 kg, BMI: 34.0 kg/m2, Admit wt: 95.1 kg. IBW: 75.45 kg (114% IBW) ESTIMATED NEEDS (VENT, Dialysis, wounds, BMI) Calories: 2295-2610kcal (22-25 kcal/kg BW) Protein: 110-145 g protein (1.5-1.8 g/kg BW IBW) Fluid: Approx. ~2610 mL (25mL/kg BW) NUTRITION DIAGNOSIS: 1) Inadequate oral intake related to inability to consume sufficient energy, as evidenced by NPO/vent status.---PERSISTS. INTERVENTION: 1) Recommend TF of Nepro starting at 10 ml/hr, once tolerance established, advance 10 ml q 6 hr to goal rate of 62 ml/hr. At goal TF will provide 2455 kcal (2605kcal w/propofol), 110 g protein; meeting 100% calorie, 100% of protein needs. Once tolerance established, add 1 packet of Prosource liquid protein 1X per day to provide a total of 122 g protein; meeting 100% protein needs. MONITOR/EVALUATE: NPO/vent status, TF start/maggy, labs, POC, GI/nutrition status. Follow per high nutrition risk guidelines.
--- NOTE | 2016-08-26 13:29 | PROG NOTE ---
[address] [address] PROGRESS NOTE PATIENT: SANDY SOSA : 1975 MR#: [id number] ADMIT: 08/23/2016 JOB ID: [id number] DATE: 08/26/2016 PULMONARY CRITICAL CARE PROGRESS NOTE: The patient is a 41-year-old man admitted with alcohol intoxication, aspiration pneumonia and hypoxic respiratory failure. The patient was seen and evaluated with resident physician, Roni Ybarra DO. Please refer to his separate detailed note for additional information. INTERVAL HISTORY: Remains minimally responsive on low-dose propofol and fentanyl. REVIEW OF SYSTEMS: Could not be obtained since the patient is intubated. PHYSICAL EXAMINATION: Vital signs reviewed. Febrile to 38.6. He is on the ventilator with 35% FiO2. General: He is intubated, sedated, unresponsive at the moment. Chest: Clear. LABORATORIES: Reviewed. WBC 10.8, down from 17.9. Chemistries reviewed and notable for creatinine of 7.8. CK is down to 15,000 from 24,000 yesterday and peak of 45,000. Procalcitonin 8.5 this morning. Cultures, blood cultures negative. Sputum from August 24 negative. Chest x-ray reviewed and shows that the ET tube is pretty high, 6 cm above the hafsa. Otherwise, no focal findings. ASSESSMENT AND RECOMMENDATIONS: 1. Acute respiratory failure. 2. Acute renal failure with rhabdomyolysis. 3. Acute encephalopathy. 4. Alcohol intoxication. 5. Aspiration pneumonia. 6. Polysubstance abuse including cocaine and alcohol. This 41-year-old man presented after being found down by his for many hours having drunk large quantities of Tequila over a couple of days. He appears to have aspirated and been down for a significant amount of time based on the severity of his rhabdomyolysis. He has been getting dialysis the last few days. He had a head CT done yesterday that showed abnormality in the globus pallidus which is of uncertain significance. Certainly anoxic encephalopathy would be expected to be more diffuse than that. We requested a neurology consult, and Dr. Jara is going to evaluate him today. His EEG yesterday showed nonspecific slowing which is not particularly useful information when somebody is on sedation. However, it did not show any seizure activity which is reassuring. He is on minimal support from the ventilator. He is on antibiotics for aspiration pneumonia -- Zosyn and azithromycin. He is continuing to have fevers which could be neurologic or could be due to aspiration. I would certainly expect the fevers to subside on the Zosyn and azithromycin, however. All cultures remain negative so far. I spoke to the family briefly at the bedside today. His did speak some Hungarian. I explained that he has multiple organ problems at the moment and we will need a few more days to see if he improves neurologically. Dr. Jara has also requested a repeat head CT which shall be done later today. In the meantime, will continue to soak to support the patient in the ICU. CRITICAL CARE TIME: 45 minutes.
--- NOTE | 2016-08-26 13:56 | PCM.PNMED ---
Subjective Date of Service Aug 26, 2016 Subjective Pulmonary/critical care service Chino Ybarra (Roni) PGY3 and Attending Dr. Solis Patient is a 41-year-old male with medical history significant for EtOH abuse, found obtunded with physical signs aspiration by , intubated for airway protection. Patient is currently in the ICU for hypoxic respiratory failure, aspiration pneumonia, anoxic brain injury, and rhabdomyolysis with secondary JUWAN. Patient received dialysis and CT head with significant for hypodensity in the globus pallidus in an otherwise normal scan compared to prior scan yesterday. No overnight events. Patient continues to saturate well with pulse ox 100% on FiO2 of 40% PEEP of 5, RR 18, tidal volume 550, with ABG showing pH 7.47, PCO2 32, PaO2 116, and calculated bicarbonate 22. In telemetry, blood pressure is maintaining 122/64, heart rate 78 and normal sinus. WBC significantly down from 17,000 today. 4, today WBC 10.8. Pro-calcitonin 8.57, however may be falsely elevated given the patient is in renal failure with aspiration pneumonitis. Patient remains to be on Zosyn and azithromycin Exam Vital Signs Vital Sign - Last Date Time Temp Pulse Resp B/P Pulse Ox O2 Delivery O2 Flow Rate FiO2 08/26/16 12:11 Ventilator 08/26/16 11:39 79 117/62 100 35 08/26/16 11:10 38.6 19 08/23/16 05:20 15 Intake and Output 08/25/16 08/25/16 08/26/16 Cumulative From/Thru 15:00 23:00 07:00 08/23/16 05:20 - 08/26/16 06:43 Intake Total 1256 ml 1740 ml 49170 ml Output Total 175 ml 250 ml 2320 ml Balance 1081 ml 1490 ml 60661 ml Intake IV Total 1256 ml 1740 ml 60147 ml Tube Irrigant 240 ml Output Urine Total 75 ml 50 ml 1450 ml Gastric Drainage Total 100 ml 200 ml 870 ml Ultrafiltrate 0 ml 0 ml # Bowel Movements 1 8 Exam General: Intubated sedated HEENT: Normocephalic, atraumatic. Sclera anicteric, pinpoint pupil sluggishly reactive to light, Neck: No JVD, No bruits. No lymphadenopathy or thyromegaly. Cardiovascular: Regular rate and rhythm with no murmurs, rubs, or gallops appreciated Pulmonary: b/l air sound with no crackles, wheezes, or rhonchi. no use of accessory muscles. Abdomen: +Bowel sound, Soft, nontender, nondistended. Extremities: No clubbing or cyanosis, no lymphedema, no b/l lower leg edema Skin: Normal temperature, No visualized skin ulcer. There is reports of sacral decubitus ulcer stage II and posterior thorax stage I Neurological: Unable to evaluate as patient is sedated and intubated Lab and Diagnostics Result Diagram: 08/26/16 0530 08/26/16 0530 Microbiology Blood cultures pending MRSA swab pending X-Rays, CTs and MRIs 08/23/16 PROCEDURE: CT BRAIN WITHOUT CONTRAST ([id number]) IMPRESSION: No acute disease. 08/23/16 PROCEDURE: X-RAY CHEST ONE VIEW, PORTABLE ([id number]) IMPRESSION: Endotracheal tube appropriate in position. No focal infiltrate or abnormality is seen in the lungs. Additional Diagnostics ABG DateTimeAnalyzed 12:28:00 -_ pH ____7.289 - 7.350 7.450 pCO2 ___41.2__ -mmHg 35.0 45.0 pO2 228 -mmHg 69.0 116 HCO3- ___19.1__ -mmol/L 22.0 26.0 ABE ___-6.8__ -mmol/L -2.0 2.0 tHb ___17.1__ -g/dL O2Hb ___97.6__ -% COHb ____0.3__ -% MetHb ____1.0__ -% sO2 ___98.9__ -% 25.0 FIO2 ___70.0__ -% PRVC 550 - PEEP ____8.0__ -cmH2O Set_RR ___20.0__ -b/min Vt __550.0__ -L Drawn By NB - Date/Time Notified____ 12:36:00 -_ Oxygen Device 1 VENTILATOR - Notified By nb - Not[facility] Wh[facility] [place]Dr. Kendregan - B 762 -mmHg tO2 ___23.9__ -Vol% Jeff test N/A - DateTimeAnalyzed 09:33:00 -_ pH ____7.269 - 7.350 7.450 pCO2 ___44.9__ -mmHg 35.0 45.0 pO2 ___63.0__ -mmHg 69.0 116 HCO3- ___19.9__ -mmol/L 22.0 26.0 ABE ___-6.7__ -mmol/L -2.0 2.0 tHb ___16.7__ -g/dL O2Hb ___87.3__ -% COHb ____0.7__ -% MetHb ____1.0__ -% sO2 ___88.8__ -% 25.0 FIO2 ___70.0__ -% PRVC 550 - PEEP ____5.0__ -cmH2O Set_RR ___14.0__ -b/min Drawn By NB - Date/Time Notified____ 09:47:00 -_ Spontaneous_RR ___24.0__ -b/min Oxygen Device 1 VENTILATOR - Notified By NB - Notified Whom ____A.MAY, RN - B 762 -mmHg tO2 ___20.4__ -Vol% Jeff test N/A - Assessment & Plan Patient is a 41-year-old male with no significant medical history however does have a significant drinking problem presented to [facility] after patient found unresponsive with aspirated noted. Patient was subsequently intubated for airway protection and admitted for anoxic brain injury and rhabdomyolysis. Problem list Anoxic brain injury Aspiration pneumonitis Rhabdomyolysis Acute kidney injury Normocytic anemia EtOH abuse Patient likely had anoxic brain injury secondary to aspiration due to EtOH intoxication, became unresponsive, immobile for at least 12 hours, thus causing rhabdomyolysis and subsequent acute kidney injury. Goal will be to determine the extent of anoxic brain injury while patient gets dialysis. Neurology has evaluated the patient, was able to open eyes while off of propofol, with EEG showing neurological activity and without significant metabolic interferences, and CT-head not convincing of significant basal ganglial damage. Hypoxic respiratory failure improving - Intubated and sedated - A.m PO2 116 mmHg, PEEP 5, decrease FiO2 to 35% - Daily ABG and chest x-ray Anoxic brain injury - Mentation status difficult to evaluate given patient is sedated on propofol - Initial CT scan unremarkable, however on repeat CT scan showed hypodensity in the globus pallidus - Per neurology Dr. Lares, EEG with neurological activity not related to metabolic processes and CT scan not convincingly show hypodensity in the basal ganglia - Will continue sedation holidays qd - BIT TRIPOLER repeat CT had down in a few days' time Aspiration pneumonitis - Still has mild elevation in white count, pro-calcitonin is significantly elevated however. - Additionally, patient spiked a fever today, other source of infection includes lines. - Antibiotics Zosyn and azithromycin - Blood culture from lines today - Infectious disease Dr. Lopez has been invited to assess and treat this patient. Rhabdomyolysis - Secondary to immobility - Hydrate NS half-normal saline - Trend CK Acute kidney injury - Secondary to rhabdomyolysis - Hydrate as above - Appreciate nephrology continue following - Patient continued to receive dialysis via right femoral catheter per fulfillment representative Dr. Tapia, Alejandro Normocytic name - Current hemoglobin 10.8 down from 15.4 the day prior - Concern for possible DIC, TTP, though no schistocytes on peripheral smear found. - Monitor Alcohol abuse - Concern for EtOH withdrawal, seizures - Currently on propofol - BIS monitoring Decubitus ulcer, probable stage I and 2 - sacrum and posterior upper thorax - Consult wound care Critical care time 1.5h GI Prophylaxis: Proton Pump Inhibitor VTE Mechanical Devices: Intermittant Pneumatic CD Resuscitation Status: CPR: Attempt Resuscitation Attending Statement I have seen and examined this patient with the resident physician. Vital signs , labs, imaging have been reviewed. I agree with the assessment and plan above. Please refer to my separately dictated progress note for any modifications to above. Genny Solis M.D. Pulmonary and Critical Care medicine Pager [phone] Chino Ybarra DO Aug 26, 2016 13:56 Genny Solis MD Aug 27, 2016 07:28
--- NOTE | 2016-08-26 14:09 | CONS ---
[address] [address] CONSULTATION REPORT PATIENT: SANDY SOSA : 1975 MR#: [id number] ADMIT: 08/23/2016 JOB ID: [id number] DATE OF SERVICE: 08/26/2016 NEUROLOGY CONSULTATION: REQUESTING PHYSICIAN: Dr. Roni Ybarra for possible anoxic injury. HISTORY OF PRESENT ILLNESS: The patient is a 41-year-old gentleman found unconscious by his after last being seen well approximately 7 p.m. According to the patient's , but with some disagreement in the ED notes, EMS was called. CPR was done by his over the telephone until they arrived. He received 2 mg of Narcan which caused his arms and legs to move but he continued to be unresponsive. Heart rate initially was 130. It does not appear that he was resuscitated by long goods drier, but he was intubated and transferred to [facility]. The patient has been intubated and on the respirator since arrival on August 23, 2016. He developed acute tubular necrosis secondary to rhabdomyolysis and is being followed by Nephrology. Dr. Lopez has been treating him for possible aspiration pneumonia. The patient has continued to be unresponsive. An EEG done yesterday while the patient was on propofol showed slowing at approximately 6 hertz but no epileptiform abnormalities and no evidence of subclinical seizures to explain his coma state. A neurology consultation was requested when the patient failed to improve and continued to show suggestion of brainstem dysfunction with doll's eyes and inability to breathe on his own off the respirator. He has, however, remained on propofol which has been tapered but not completely due to the evidence of bronchospasm at times according to nursing staff. Significant for this examination, the propofol has been stopped. The patient's , his son, his mother, his sister and family friends are at the bedside. Krissy serves as ev[employer] sales throughout the evaluation. U Tox in the emergency department showed evidence of cocaine. Head CT completed on August 25 showed evidence of what appeared to be basal ganglial or globus pallidus hyperdensities. There were no other signs to suggest cerebral edema. PAST MEDICAL HISTORY: Is unknown but thought to be essentially normal except for polysubstance abuse which includes alcohol, methamphetamine and cocaine. SOCIAL HISTORY: As above the patient is and has a family. FAMILY HISTORY: None known. REVIEW OF SYSTEMS: The patient unable to provide a review of systems due to coma like state and intubation. PHYSICAL EXAMINATION: The patient is intubated and on a respiratory in no obvious distress. Vital Signs: 117/62, pulse 79, pulse oximetry 100% on BiPAP. Head: Normocephalic, atraumatic. No evidence of carotid bruits. Lungs: Clear to auscultation. Cardiac: Regular rate and rhythm. No edema or lesions in the skin with warm, dry skin. Pedal pulses palpated. Pressure about the same. ALLERGIES: No known drug allergies MEDICATIONS: 1. Heparin subcutaneously. 2. Propofol. 3. Tapering off antibiotics piperacillin, tazobactam, famotidine, Peridex, azithromycin. NEUROLOGIC EXAMINATION: The patient is intubated and on a respirator, he responds to Q-tip in the nasopharynx by opening his eyes and moving his head. No spontaneous eye opening, he responds to his 's voice by raising his eyebrows. Otherwise no spontaneous movement noted. Cranial nerves: Pupils are minimally responsive. The patient briefly focuses, otherwise doll's eyes appreciated. No facial asymmetry. No gag response. Limited examination otherwise due to intubation. Motor strength: No spontaneous movement, no movement with command. Deep tender reflexes: 2+ throughout with plantar reflex extensor on the left. Equivocal on the right. Tone: Flaccid. Sensation: As above. Otherwise no response to deep pain on all four extremities. Coordination and gait: Cannot be assessed due to patient's coma state. LABORATORIES: Elevated white count, now 10.8, down from 17.9 yesterday. Platelets low at 121. Chemistry: Creatinine 7.87. Calcium low at 6.7. Creatinine 00883, BUN 51, glucose 117. U tox as above. IMAGING STUDIES: As above. ASSESSMENT/RECOMMENDATION: The patient is a 41-year-old gentleman with an apparent anoxic injury found down and comatose. He is currently on propofol, intubated and on a respirator. Propofol has been tapering downward, now off prior to this examination with notable voluntary movement in the eyes with focus in response to voice. The EEG shows evidence of slowing but no other abnormalities to suggest that the patient is having clinical seizures causing his symptoms. There is significant metabolic dysfunction. He has renal failure and possible aspiration pneumonia. I recommend continuing to monitor for improvement. I discussed the unknowns and knowns with the patient's family through the Sammarinese-speaking try out person. I explained that likely the patient has sustained some degree of anoxic injury, but at this point, it is unclear how much. It will be important to observe and monitor over time in order to assess prognosis. He has significant comorbidities that may be causing the prolonged coma-like state including metabolic, infectious as well as anoxic. Over half of this one hour consultation was spent in counseling with family. Thank you for this consultation. I will continue to follow with you and as needed. AUBREY
--- NOTE | 2016-08-26 14:23 | PCM.PNMED ---
Subjective Date of Service Aug 26, 2016 Subjective Overnight Events: None Today, Mr. Ann remains intubated and sedated. He is not having any purposeful movements on examination. Unchanged from yesterday. Exam Vital Signs Vital Sign - Last Date Time Temp Pulse Resp B/P Pulse Ox O2 Delivery O2 Flow Rate FiO2 08/26/16 04:30 37.6 78 20 122/64 100 Mechanical Ventilator 40 08/23/16 05:20 15 Intake and Output 08/25/16 08/25/16 08/26/16 Cumulative From/Thru 15:00 23:00 07:00 08/23/16 05:20 - 08/26/16 05:49 Intake Total 1256 ml 00413 ml Output Total 175 ml 2070 ml Balance 1081 ml 9628 ml Intake IV Total 1256 ml 15631 ml Tube Irrigant 240 ml Output Urine Total 75 ml 1400 ml Gastric Drainage Total 100 ml 670 ml Ultrafiltrate 0 ml 0 ml # Bowel Movements 7 Exam General: Patient intubated and sedated, no sign of distress HEENT: Normocephalic, atraumatic. Pupils do not track, not reactive to light Cardiovascular: Regular rate and rhythm with no murmurs, rubs, or gallops appreciated Pulmonary: Clear to auscultation anteriorly with equal air sounds bilaterally, intubated. Abdomen: Bowel tones present. Soft, nondistended. Extremities: No clubbing, cyanosis, edema, or lymphadenopathy appreciated. Skin: Large erythemetous region around sacrum with open wound about 3 inches in diameter. Similar looking presentation at upper thorax with some blisters. Neurological: Unable to assess as patient sedated. He is not responding to commands at this time. Lab and Diagnostics Item Value Date Time Procalcitonin 8.57 ng/mL H 08/26/16 0530 Total Creatine Kinase 85961 U/L H 08/25/16 0530 Total Creatine Kinase 15422 U/L H 08/26/16 0530 Aspartate Amino Transf (AST/SGOT) 403 U/L H 08/25/16 05 Aspartate Amino Transf (AST/SGOT) 289 U/L H 08/26/16 0530 Alanine Aminotransferase (ALT/SGPT) 177 U/L H 08/26/16 05 Alanine Aminotransferase (ALT/SGPT) 235 U/L H 08/25/16 05 Creatinine 8.41 mg/dL *H 08/25/16 0530 Creatinine 7.87 mg/dL *H 08/26/16 0530 Hepatitis C Antibody <0.1 s/co ratio 08/25/16 1646 Hepatitis B Core Total Antibody Negative 08/25/16 164 Hepatitis B Surface Antibody Non reactive 08/25/16 164 Hepatitis B Surface Antigen Negative 08/25/16 1646 Result Diagram: 08/24/16 0520 08/25/16 0530 Microbiology Blood cultures pending MRSA swab pending X-Rays, CTs and MRIs 08/23/16 PROCEDURE: CT BRAIN WITHOUT CONTRAST ([id number]) IMPRESSION: No acute disease. 08/23/16 PROCEDURE: X-RAY CHEST ONE VIEW, PORTABLE ([id number]) IMPRESSION: Endotracheal tube appropriate in position. No focal infiltrate or abnormality is seen in the lungs. Additional Diagnostics ABG DateTimeAnalyzed 10:20:00 -_ pH ____7.354 - 7.350 7.450 pCO2 ___31.5__ -mmHg 35.0 45.0 pO2 160 -mmHg 69.0 116 HCO3- ___17.1__ -mmol/L 22.0 26.0 ABE ___-6.9__ -mmol/L -2.0 2.0 tHb ___14.4__ -g/dL O2Hb ___98.1__ -% COHb ____0.6__ -% MetHb ____0.1__ -% sO2 ___98.8__ -% 25.0 FIO2 ___45.0__ -% PRVC 20 - PEEP ____8.0__ -cmH2O Vt __550.0__ -L Drawn By gj - Date/Time Notified____ 10:36:00 -_ Spontaneous_RR ___20.0__ -b/min Oxygen Device 1 VENTILATOR - Notified By gj - Notified Whom ____HUYNH - B 760 -mmHg tO2 ___20.1__ -Vol% Jeff test _Positive - Assessment & Plan Santiago Ann is a 41 year old male with no known past medical history who came in unresponsive after being found with vomit around him, now sedated and intubated for acute hypoxemic respiratory failure secondary to aspiration. Anoxic Brain Injury, present on admission, active Secondary to asipiration and intoxication. Patient has had large volume of vomit suctioned out in the ED. Chest X-ray personally reviewed and is unremarkable for pneumonia. Differential includes anoxic brain injury as patient has been unresponsive since admission. - Currently intubated and sedated. - Currently sedated with Propofol and fentanyl. - X-ray Image reviewed today patient still does not look like he has any signs of aspiration pneumonia - We will continue to treat with Zosyn as this still may be a possibility of aspiration pneumonia - Leukocytosis improving and downtrending - ICU team is following - Infectious disease consulted to assess appropriate antibiotic coverage. - CT head results as above. Pending EEG results. - Neurology consult - Repeat Blood Cultures from PICC and Femoral line - Auto Service Advisor consult for tube feed - Palliative Care meeting with family scheduled for 1 PM 08/25/16. Metabolic Acidosis, present on admission, active Likely secondary to lactic acidosis - Monitor CMP Rhabdomyolysis, [place] [address]. Likely secondary to being in one position for 9 hours. Patient has large erythematous regions at pressure points of sacrum and upper thorax with open wound at sacrum. - IV fluids 100 mL/hr - Monitor CK - Wound care consult - Nephrology consulted and is following. Acute Kidney Injury, present on admission, active Cr on admission at 3.52 and increasing after admission. Unknown history of kidney injury. - IV fluids at 100 mL/hr - Nephrology (Dr. Haynes) currently following case. First hemodialysis done with another one scheduled for 08/26/16. - Continue to monitor Hyperkalemia, present on admission (resolved) - Current potassium is 4.6 - Continue to monitor Elevated Liver Function Tests, present on admission, active Likely due to chronic alcohol use - Currently trending down - Continue to monitor Alcohol abuse -Patient currently sedated no need to institute CIWA protocol at this time Drug abuse -Patient is a known user of cocaine and ice -Per family, last known use is around 5 months ago. DVT prophylaxis: Heparin sub Q GI prophylaxis: Famotidine GI Prophylaxis: Proton Pump Inhibitor VTE Mechanical Devices: Intermittant Pneumatic CD Resuscitation Status: CPR: Attempt Resuscitation Attending Statement The patient was seen and examined together with Dr. Rodriguez on 08/26/2016 and I agree with the history, exam and plan as outlined in the note above. . Enrique Rodriguez DO Aug 26, 2016 06:19 Betito Arias MD Aug 28, 2016 07:57
--- NOTE | 2016-08-26 15:24 | NUR ---
Palliative care note [facility] D/A: Met with family at length. This included pt mother Cyndi, sister Guillermina, nephew Paresh, cousin Sina and his spouse Jacquelyn and spouse Elise Douglas (commercial credit specialist services) Dr.s Wolfe, Dr. Hastings and Dr. Ordaz. Stella notes that she and pt have three children; Santiago Sánchez (13), Zfoia (8) and Radha (6). Discussed at length pt current condition and answered questions about medical issues. 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 He is proud of his capabilities and has learned his skills on the job. Family is Alevism and is part of the muslim at [facility] in [place]. Pt enjoys his children and is noted to be a good father. He is described as someone that others esteem and look up to, someone others love, he thinks about the future of his children and plans for them and is a hard worker. Pt has long struggled with depression. He has felt sad that he was raised by his grandmother and for reasons that are unclear, not by his parents. He longed to have a family of his own so that he could be there for his children. He has disclosed to his spouse and sister that he had depression and at times wished that he had not been born. Family does not think that current episode was a suicide attempt. Pt comes from a family of heavy drinkers and has used drugs and ETOH and more so recently. Sister feels that pt was not setting a good example with his use of drugs and ETOH. Spouse disclosed pt feelings of depression and sadness and this was very difficult for her to discuss this in front of pt family. Pt sister expressed support for her to disclose, indicating that this needs to be talked about in order for pt to get the help that he needs. Mo became upset and had to leave the room early and it appeared that she was not aware of some of the issues discussed. Discussed insurance with family. He does not have insurance and they do not believe that he is eligible for such. Briefly describes [facility] with them and indicated that someone will discuss with them further. Call to Daisy to explain, she will investigate further. P: Palliative care to follow. Genet NANCE, [facility]
--- NOTE | 2016-08-26 15:59 | PCM.CONPAL ---
Date of Service Aug 26, 2016 Date of Hospital Admission: Aug 23, 2016 at 07:01 Date of Palliative Consult: Aug 26, 2016 Requesting Provider: Marlo Daniel MD Reason Palliative Care Consult: Goals of Care Discussion Hospital Unit @time of consult: Critical Care (Room 2018) Palliative Care Recommendation Summary of palliative recommendations: -Symptom management (Pain/other) -DPOA/Advanced Directives/POLST: 1. FULL Code 2. is designated decision maker. 3. No prior paperwork for AD or POLST. -Family/emotional support -Spiritual support: family is Latter Day and the culture of Catholicism and regular mass attendance is part of their life. They don't want a desktop operator to visit at this time as they feel, if the patient knew he would panic and think he is dying. Patient/Family Goals: specific boundaries on care not discussed. At this time, family desires all possible interventions to help pt get back to his baseline health. 08/26 Family Conference Team Meeting (FCTM): Met with family at length. This included pt mother Cyndi, sister Guillermina, nephew Paresh, cousin Sina and his spouse Jacquelyn and patient's spouse Elise Douglas (stitcher set up operator automatic services), Genet George (), Hazel Wolfe, and Jyotsna--all from [facility] Team-- and Dr. Rodriguez ([facility] steam bone press tender). Stella notes that she and pt have three children; Santiago Sánchez (13), Zofia (8) and Radha (6). Discussed at length pt current condition and answered questions about medical issues. Dr. Hastings explained that neurological workup is ongoing and outcome is not clear. Dr. Wolfe went over treatments being used to care for pt's lungs and kidneys. 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 He is proud of his capabilities and has learned his skills on the job. Family is Latter Day and is part of the hinduism at [facility] in [place]. Pt enjoys his children and is noted to be a good father. He is described as someone that others esteem and look up to, someone others love, he thinks about the future of his children and plans for them and is a hard worker. Pt has long struggled with depression. He has felt sad that he was raised by his grandmother and for reasons that are unclear, not by his parents. He longed to have a family of his own so that he could be a positive influence and offer parental love and support for his children that he feels he didn't receive. He has disclosed to his spouse and sister that he had depression and at times wished that he had not been born. Family does not think that current episode was a suicide attempt. Pt comes from a family of heavy drinkers and has used drugs and ETOH at baseline, and more so in recent days prior to this hospitalization. Sister feels that pt was not setting a good example for his children with his use of drugs and ETOH. Spouse disclosed pt feelings of depression and sadness and this was very difficult for her to discuss this in front of pt's family. Pt sister expressed support for her to disclose, indicating that this needs to be talked about in order for pt to get the help that he needs. Patient's mother Cyndi, became upset and had to leave the room early and it appeared that she was not aware of some of the family issues brought forward by the and sister today. Family assured by team and stitcher set up operator automatic that this information about family issues , depression, drinking is confidential and medical team only uses information to help monitor pt's health. For example, as a result of this information, the team may be watching for signs of withdrawal from alcohol or considering start of antidepressant when Santiago is able to take po or have a feeding tube to deliver medication. Dr. Wolfe also asked family to please be aware that CCU rules are that only 2 people from family allowed in CCU room at a time, and rest of family/friends must wait in 2nd floor public waiting areas outside CCU. Problems: Resuscitation Status Resuscitation Status: CPR: Attempt Resuscitation POLST Updates/Changes Previous POLST?: No Pt History History of Present Illness Santiago Ann is a 41 year old male who presented to the ED via EMS after being found unconscious at 0430 with vomit on himself by his who last saw him well at 1900 the previous night. EMS was called and CPR instructions were given over the phone to the as the patient had abnormal breathing. She gave him CPR until medics arrived. The medics gave the patient 2 mg of Narcan IV which caused his arms to move but he continued to be unresponsive. The pt's reports no falls or trauma to the pt's head. She also states that the pt's brother has possibly had seizures in the past. She mentioned that Mr. Ann drank a bottle of tequila last night and frequently drinks alcohol. He has had no prior episodes like this. In the ED, vomit was suctioned out of the throat, and he was intubated. CT showed no acute disease and chest x-ray was unremarkable .He was found to be hyperkalemic and acidotic on ABG. He is admitted to the CCU for further management. Hospital Course: He developed acute tubular necrosis secondary to rhabdomyolysis and is being followed by Nephrology and received his first dialysis treatment 08/25 for rising creatinine related to elevated CKs. Dr. Lopez has been treating him for possible aspiration pneumonia. The patient has continued to be unresponsive. An EEG done yesterday while the patient was on propofol showed slowing at approximately 6 hertz but no epileptiform abnormalities and no evidence of subclinical seizures to explain his coma state. U Tox in the emergency department showed evidence of cocaine. Head CT completed on August 25 showed evidence of what appeared to be basal ganglial or globus pallidus hyperdensities. There were no other signs to suggest edema. A neurology consultation was requested when the patient failed to improve and continued to show suggestion of brainstem dysfunction with doll' s eyes and inability to breathe on his own off the respirator. He has, however, remained on propofol which has been tapered but not completely due to the evidence of bronchospasm at times according to nursing staff. Significant for this examination, the propofol has been stopped. Off propofol there was some voluntary movement of his eyes and facial response to familiar voices. Today is Hospital Day 4 and Palliative Care will meet with family to gather background information about the pt and give a medical update compiled by the Attending hospitalist team through a Indonesian Speaking Lining Layer. In CCU rounds, the patient's clinical condition was discussed extensively today. His neuro status is unclear and neurology management consultant has already counseled family that he likely has had some anoxic injury but it is yet unclear how much, that we will have to monitor this over time. Past Medical History Significant PMH Noted: PAST MEDICAL HISTORY: Is unknown but thought to be essentially normal except for polysubstance abuse which includes alcohol, methamphetamine and cocaine. SOCIAL HISTORY: As above the patient is and has three children. 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 FAMILY HISTORY: None known. REVIEW OF SYSTEMS: The patient unable to provide a review of systems due to coma like state and intubation. Medications Current Medications: Current Medications Chlorhexidine Gluconate 15 ml Q4H MT Last administered on 08/26/16 14:49; Admin Dose 15 ML; Start 08/25/16 at 08:40 Heparin Sodium (Porcine) 5,000 unit Q8 SUBQ Last administered on 08/26/16 09:37 ; Admin Dose 5,000 UNIT; Start 08/26/16 at 08:50 No Active Prescriptions or Reported Meds Objective Findings Exam Vital Sign - Last Date Time Temp Pulse Resp B/P Pulse Ox O2 Delivery O2 Flow Rate FiO2 08/26/16 12:11 Ventilator 08/26/16 11:39 79 117/62 100 35 08/26/16 11:10 38.6 19 08/23/16 05:20 15 Intake and Output 08/25/16 08/25/16 08/26/16 Cumulative From/Thru 15:00 23:00 07:00 08/23/16 05:20 - 08/26/16 06:43 Intake Total 1256 ml 1740 ml 43488 ml Output Total 175 ml 250 ml 2320 ml Balance 1081 ml 1490 ml 27998 ml Intake IV Total 1256 ml 1740 ml 47702 ml Tube Irrigant 240 ml Output Urine Total 75 ml 50 ml 1450 ml Gastric Drainage Total 100 ml 200 ml 870 ml Ultrafiltrate 0 ml 0 ml # Bowel Movements 1 8 Objective General: The patient is intubated and on a respirator. Off propofol: he responds to Q-tip in the nasopharynx by opening his eyes and moving his head. No spontaneous eye opening, he responds to his 's voice by raising his eyebrows. Otherwise no spontaneous movement noted. HEENT: normocephalic, atraumatic head. pupils pinpoint. Cardiovascular: Regular rate and rhythm with no murmurs, rubs, or gallops appreciated Pulmonary: Clear to auscultation anteriorly with equal air sounds bilaterally, intubated. FIO2 35% rate 14/TV 550/PEEP 5. Abdomen: Bowel tones present. Soft, nondistended. Extremities: No clubbing, cyanosis, edema, or lymphadenopathy appreciated. Skin: Large erythemetous region around sacrum with open wound about 3 inches in diameter. Similar looking presentation at upper thorax with some blisters. Neuro: Cranial nerves: Pupils are minimally responsive. The patient briefly focuses,otherwise doll's eyes appreciated. No facial asymmetry. No gag response. Motor strength: No spontaneous movement, no movement with command. Deep tender reflexes: 2+ throughout with plantar reflex extensor on the left. Equivocal on the right. Tone: Flaccid. Sensation: no response to deep pain on all four extremities. Lab/Diagnostics Lab and Diagnostics Item Value Date Time Procalcitonin 8.57 ng/mL H 08/26/16 05 Total Creatine Kinase 46507 U/L H 08/25/16 05 Total Creatine Kinase 26581 U/L H 08/26/16529 Aspartate Amino Transf (AST/SGOT) 403 U/L H 08/25/16529 Aspartate Amino Transf (AST/SGOT) 289 U/L H 08/26/16 05 Alanine Aminotransferase (ALT/SGPT) 177 U/L H 08/26/16529 Alanine Aminotransferase (ALT/SGPT) 235 U/L H 08/25/16 05 Creatinine 8.41 mg/dL *H 08/25/16 05 Creatinine 7.87 mg/dL *H 08/26/16 0530 Hepatitis C Antibody <0.1 s/co ratio 08/25/161645 Hepatitis B Core Total Antibody Negative 08/25/161645 Hepatitis B Surface Antibody Non reactive 08/25/161645 Hepatitis B Surface Antigen Negative 08/25/161645 Result Diagram: 08/24/16 0508/25/16529 Time spent Total time 130 minutes; >50% face to face with patient and/or family, providing counselling regarding plans and recommendations, and in care coordination with his/her medical teams. Marly Wolfe MD Aug 26, 2016 15:59
--- NOTE | 2016-08-26 16:51 | NUR ---
Status Progressing. Propofol and fentanyl gtt remain off. Pt opening eyes with verbal cues, unable to plant health manager on command. No purposeful movement noted in extremities at this time. SR per manager cardiac, HR 60s. Pressure stable. T-max 38.4 this am. Continues on PRVC with 35% fi02 and peep of 5. Over-breathing set rate. Sp02 maintained >92%. Tube feedings initiated. Blood glucose controlled at this time. Espinoza to DD, 60cc out this shift. Dialyzing. Will continue to monitor.
--- NOTE | 2016-08-26 17:20 | NUR ---
Social Work : Multidisciplinary Rounds/Attempted Assessment Pt was discussed in AM rounds, pt remains on the vent and EEG pending. SW attempted to meet with pt family at bedside with the assistance of film loader, pt family had just left for the afternoon. SW to follow up with pt family to check in and assess for any unmet needs as well as provide director of financial reporting application when appropriate. JEFF Swan
--- NOTE | 2016-08-26 19:48 | NUR ---
HEMODIALYSIS NOTE 3hr tx using 2K+ on revaclear dialyzer. Net UF 1.4kg, Total liters Processed 59.3. VSS, SBP 140s most of tx. Femoral catheter: both ports aspirate and flush and ran with good A/V pressures at BFR of 300 A/A, V/V. Catheter dressing CD&I. HBSAg neg, HBSAg core neg, HBSAb neg.
[2016-08-26] MEDS: Azithromycin Inj 500 MG in Dextrose 5% w/Vial Mate 250 ML IV SCH (20:05)
[2016-08-27] VITALS (13 sets, daily range): BP systolic 153–170; BP diastolic 68–98; PULSE 66–79; RESP 15–23; O2SAT 97–100
[2016-08-27] MEDS: Chlorhexidine 0.12% 15 mL Oral Solution MT SCH ×6 (00:28→20:48)
[2016-08-27] MEDS: Heparin 5,000 Unit/mL Inj SUBQ SCH ×3 (00:28→17:40)
[2016-08-27] MEDS: fentaNYL-PF 50 mCg/mL 2 mL Inj IVPUSH PRN ×2 (00:28→04:03)
--- NOTE | 2016-08-27 04:30 | ABG ---
DateTimeAnalyzed 04:22:50 -_ pH ____7.473 - 7.350 7.450 pCO2 ___36.8__ -mmHg 35.0 45.0 pO2 119 -mmHg 69.0 116 HCO3- ___27.0__ -mmol/L 22.0 26.0 ABE ____3.1__ -mmol/L tHb ___11.1__ -g/dL O2Hb ___97.6__ -% COHb ____1.2__ -% 1.5 MetHb ____0.4__ -% sO2 ___99.1__ -% FIO2 ___35.0__ -% PEEP ____5.0__ -cmH2O Set_RR 14 -b/min Vt __550.0__ -L Drawn By MK - Date/Time Notified____ 04:30:00 -_ Spontaneous_RR 14 -b/min Oxygen Device 1 VENTILATOR - Notified By MK - K+ ____3.4__ -mmol/L tO2 ___15.4__ -Vol% Jeff test _Positive -
[2016-08-27 06:03] LABS: Mean Corpuscular Hemoglobin 29.1 pg (27.0-35.0); Mean Corpuscular Volume 87.3 fL (81-100); Platelet Count 105 bil/L (150-400)
--- NOTE | 2016-08-27 06:29 | NUR ---
Mentation/Respiratory Pt off sedation since 1200 per report, pt more awake, opens eyes, nods appropriately and follows simple commands, moving left hand, no movement seen on MANISH and BLE, RASS +1 twice with persistent coughs, given fentanyl 50 mcg IV x 2. Pt's BP slightly elevated this am with SBP 160's mmhg. On vent support, initial fio2 0.35, am abg resulted with p02 of 119, fio2 dropped to 0.30, sp02>96%.
[2016-08-27 06:50] LABS: BASOPHILS % (AUTO) 0 % (0-3); EOSINOPHILS % (AUTO) 1 % (0-5); MONOCYTES % (AUTO) 15 % (4-12); NEUTROPHILS % (AUTO) 68 % (40-74)
[2016-08-27] MEDS: Famotidine Inj 20 MG in IV Premix 1 EACH IV SCH (08:00)
[2016-08-27] MEDS: Piperacillin-Tazo 3.375 Gm Inj 3.375 GM in Dextrose 5% Minibag Plus 50 ML IV SCH ×2 (08:00→20:50)
[2016-08-27] MEDS ORDERED: TdaP Vaccine 0.5 mL Inj IM ONE (08:25)
[2016-08-27] MEDS ORDERED: Acetaminophen IV 1,000 MG in IV Premix 1 EACH IV PRN (08:25)
--- NOTE | 2016-08-27 08:47 | PROG NOTE ---
[address] [address] PROGRESS NOTE PATIENT: SANDY SOSA : 1975 MR#: [id number] ADMIT: 08/23/2016 JOB ID: [id number] DATE: 08/27/2016 REASON FOR FOLLOWUP: Probable aspiration pneumonia in a patient who was found comatose at home. INTERVAL HISTORY: Since yesterday, the patient's mental status has improved considerably. He now has reactive pupils, can track and interact somewhat with the team; though, he remains critically ill in the ICU on the ventilator. He also continues to have essentially no urine output with a very elevated creatinine. This case was discussed at the bedside with the patient's family, as well as the ICU nursing team. The patient himself is obviously still intubated and minimally sedated and not able to provide any significant additional history. PHYSICAL EXAMINATION: Reveals a gentleman who is currently febrile to 38.7 degrees. His pulse is in the 70s, blood pressure 161/89. He is no longer on vasopressor agents. His ventilator settings are down to 30% FiO2 and 5 of PEEP. Pupils are now reactive. He can track and does it sometimes, follows commands all of which represents a major improvement overnight. Neck is supple. Lungs with a few crackles at the bases, but improved. Cardiac tones regular rate and rhythm. No murmur. Abdomen soft and nontender. Espinoza catheter is present. He has a shallow healing laceration on his right knee without much surrounding cellulitis. He also has lesions on his buttocks which are shallow and do not appear infected and lesions on the scapula bilaterally which are also shallow. All these wounds appear uninfected and are likely related to mechanical trauma as are shallow heel ulcers related to mechanical trauma from simply lying in place while he was unable to move. LABORATORY DATA: Labs include a white count which has normalized at 10,000, a platelet count which is dropping fairly rapidly now 105. Differential white count normal, except 2% myelocytes remain. His creatinine 6.93, slightly improved from yesterday. Bilirubin 0.5. AST is coming down, it is now 273. ALT is coming down, it is now 165. CPK coming down, but very slowly at 13 yesterday and 12,000 today. Procalcitonin 8.5 yesterday, it is 4 today, so procalcitonin is coming down rapidly. Urinalysis is negative. QuantiFERON Gold pending. HIV and hep C are negative. Micro studies all negative including blood cultures, PCR and sputum. Today's chest x-ray was reviewed, was relatively clear, except for some increased markings in the right base which are likely consistent with atelectasis; though, the possibility of aspiration pneumonia cannot be excluded especially in the right lower lung field. This is my reading and not that of the radiologist. Yesterday's initial radiology reading was clear lung lisa. IMPRESSION: Overall, this patient is much improved especially with respect to his mental status. There had been concern about severe anoxic brain injury, but the patient is now starting to wake up. Nonetheless, he remains critically ill in the intensive care unit on the ventilator as his mental status is still not returned completely normal and his renal function continues to be extremely poor with minimal urine output and grossly elevated creatinine. He also continuing to have fevers which I suspect are on the basis of aspiration pneumonia; though, it is possible that the superinfection of the multiple skin lesions he developed while down could be playing some role, but we have no evidence for MRSA or other resistant organisms at this time. RECOMMENDATIONS: 1. I would stop the azithromycin. 2. Continue aspiration coverage with Zosyn for 7-8 days. 3. Will continue to follow this patient with you. 4. We await the QuantiFERON Gold result.
[2016-08-27] MEDS: Thiamine Inj 200 MG in Dextrose 5% 50 ML IV SCH (10:32)
--- NOTE | 2016-08-27 10:53 | PCM.PNMED ---
Subjective Date of Service Aug 27, 2016 Subjective Pulmonary critical care consultation Chino Ybarra (Roni) PGY3 and Attending Dr. Solis Patient is a 41-year-old male with medical history significant for polydrug abuse including EtOH and cocaine, found obtunded, unresponsive and was intubated prior to presentation in the ED on 08/23/2016 currently remains in ICU for anoxic brain injury and acute kidney injury secondary to rhabdomyolysis on dialysis. No overnight events. Per neurology yesterday, EEG readings slow, but otherwise no other abnormalities found. No evidence of seizures. Repeated CT brain on did report hypodensity in the basal ganglia, uncertain of the full neurological effects of this at current time. Patient remains hemodynamically stable, satting well with pulse ox 100% on an FiO2 of 30, PEEP of 5, respiratory of 14, tidal volume 550. Patient is minimally sedated on propofol and fentanyl for pain. Scant urine output, patient received hemodialysis again yesterday with about 1 L ultrafiltration removed. Creatinine remains 6.9, total CK 12,000, down from 31,000 on admission. WBC 10.1 with pro-calcitonin 3.95 essentially half from yesterday. Though, patient did spike a temperature today 38.7, concern is for possible developing cellulitis from skin breakdown in his upper back and sacral area. Hemoglobin 10.5 stable, no schistocytes on smear evaluation, fibrinogen remains high at 499. Exam Vital Signs Vital Sign - Last Date Time Temp Pulse Resp B/P Pulse Ox O2 Delivery O2 Flow Rate FiO2 08/27/16 08:15 Ventilator 08/27/16 08:00 68 170/84 98 30 08/27/16 08:00 38.7 18 08/23/16 05:20 15 Intake and Output 08/26/16 08/26/16 08/27/16 Cumulative From/Thru 15:00 23:00 07:00 08/23/16 05:20 - 08/27/16 05:40 Intake Total 1240 ml 1926 ml 57298 ml Output Total 1660 ml 115 ml 4095 ml Balance -420 ml 1811 ml 64502 ml Intake IV Total 1240 ml 1610 ml 12557 ml Tube Feeding 196 ml 196 ml Tube Irrigant 120 ml 360 ml Output Urine Total 60 ml 110 ml 1620 ml Stool Total 5 ml 5 ml Gastric Drainage Total 200 ml 1070 ml Ultrafiltrate 1400 ml 1400 ml # Bowel Movements 3 11 Exam General: Intubated sedated HEENT: Normocephalic, atraumatic. Sclera anicteric, pinpoint pupil sluggishly reactive to light, Neck: No JVD, No bruits. No lymphadenopathy or thyromegaly. Cardiovascular: Regular rate and rhythm with no murmurs, rubs, or gallops appreciated Pulmonary: b/l air sound with no crackles, wheezes, or rhonchi. no use of accessory muscles. Abdomen: +Bowel sound, Soft, nontender, nondistended. : Espinoza catheter in place Extremities: No clubbing or cyanosis, no lymphedema, no b/l lower leg edema Skin: Temperature, large skin breakdown in the upper back and sacral area, right femoral HD catheter in place nonerythematous, no ecchymosis. Small eschar approximately 1 inch found on right knee, nonpurulent, nonerythematous. Neurological: Spontaneous eye opening, responds to commands. Lab and Diagnostics Result Diagram: 08/27/1645 08/27/1645 Microbiology Blood cultures pending MRSA swab pending X-Rays, CTs and MRIs 08/23/16 PROCEDURE: CT BRAIN WITHOUT CONTRAST ([id number]) IMPRESSION: No acute disease. 08/23/16 PROCEDURE: X-RAY CHEST ONE VIEW, PORTABLE ([id number]) IMPRESSION: Endotracheal tube appropriate in position. No focal infiltrate or abnormality is seen in the lungs. Additional Diagnostics ABG DateTimeAnalyzed 10:20:00 -_ pH ____7.354 - 7.350 7.450 pCO2 ___31.5__ -mmHg 35.0 45.0 pO2 160 -mmHg 69.0 116 HCO3- ___17.1__ -mmol/L 22.0 26.0 ABE ___-6.9__ -mmol/L -2.0 2.0 tHb ___14.4__ -g/dL O2Hb ___98.1__ -% COHb ____0.6__ -% MetHb ____0.1__ -% sO2 ___98.8__ -% 25.0 FIO2 ___45.0__ -% PRVC 20 - PEEP ____8.0__ -cmH2O Vt __550.0__ -L Drawn By gj - Date/Time Notified____ 10:36:00 -_ Spontaneous_RR ___20.0__ -b/min Oxygen Device 1 VENTILATOR - Notified By gj - Notified Whom ____HUYNH - B 760 -mmHg tO2 ___20.1__ -Vol% Jeff test _Positive - Assessment & Plan Patient is a 41-year-old male with no significant medical history however does have a significant drinking problem presented to [facility] after patient found unresponsive with aspirated noted. Patient was subsequently intubated for airway protection and admitted for anoxic brain injury and rhabdomyolysis. Problem list Anoxic brain injury Rhabdomyolysis Acute kidney injury Aspiration pneumonitis Normocytic anemia EtOH abuse Patient likely had anoxic brain injury secondary to aspiration due to EtOH intoxication, became unresponsive, immobile for at least 12 hours, thus causing rhabdomyolysis and subsequent acute kidney injury. Goal will be to determine the extent of anoxic brain injury while patient gets dialysis. Neurology has evaluated the patient, was able to open eyes while off of propofol, with EEG showing slow neurological activity otherwise no other abnormalities seen,and CT- head not convincing of significant basal ganglial damage. Patient spiked a temperature today, some concern that this may be newly developed cellulitis from skin breakdown while unconscious prior to admission. Continue to monitor while currently on Zosyn for aspiration pneumonia. MRSA negative. Blood culture has been negative thus far. Anoxic brain injury - Currently off of all sedation and only when necessary fentanyl for pain - Initial CT scan unremarkable, however on repeat CT scan showed hypodensity in the globus pallidus - Per neurology Dr. Lares, EEG with neurological activity not related to metabolic processes and CT scan not convincingly show hypodensity in the basal ganglia - Will continue to hold off sedation, evaluate for any improvement in mentation - Will repeat CT-head in a few days' time Hypoxic respiratory failure improving - Intubated and sedated - Significant improvement in oxygenation - Current vent settings PRBC FiO2 30, PEEP 5, RR 14, tidal volume 550. - Patient remains on the vent secondary to altered mentation - Daily ABG and chest x-ray Aspiration pneumonitis - Still has mild elevation in white count, pro-calcitonin is significantly elevated however. - Additionally, patient spiked a fever today, other source of infection includes lines. - Continue Zosyn, stop azithromycin - Blood culture from lines negative 24 hours - Infectious disease Dr. Lopez has been invited to assess and treat this patient. Rhabdomyolysis - Secondary to immobility - Creatinine kinase will be cleared by hemodialysis - Trend CK Acute kidney injury - Secondary to rhabdomyolysis - Stop D5W, increase free water via enteric feeding - Appreciate nephrology continue following - Patient continued to receive dialysis via right femoral catheter per director data architecture Dr. Tapia, [place] Normocytic name - hemoglobin 10's down from 15.4 the day prior, stable however. - Concern for possible DIC, TTP, though no schistocytes on peripheral smear found. - Monitor Alcohol abuse - Concern for EtOH withdrawal, seizures - Monitor - thiamine per hospitalist Blistered skin - Upper back and sacrum - Consult wound care Total critical care time 1 hour GI Prophylaxis: Proton Pump Inhibitor VTE Mechanical Devices: Intermittant Pneumatic CD Resuscitation Status: CPR: Attempt Resuscitation Attending Statement I have seen and examined this patient with the resident physician. Vital signs , labs, imaging have been reviewed. I agree with the assessment and plan above. Please refer to my separately dictated progress note for any modifications to above. Genny Solis M.D. Pulmonary and Critical Care medicine Pager [phone] Chino Ybarra DO Aug 27, 2016 10:53 Genny Solis MD Aug 27, 2016 16:17
--- NOTE | 2016-08-27 11:03 | NUR ---
NUTRITION FOLLOW UP: ASSESS: 41 YO M admitted to CCU after pt found unresponsive. Pt with aspiration pneumonia and rhabdomyolysis. Pt remains intubated. Started dialysis 08/25. TF was started 08/26. Pt is tolerating well, currently running @ 30ml/hr. Minimal residuals. Propofol has been turned off. PMHx: No medical history with the exception of ETOH abuse. DIET: NPO. LABS: Reviewed. Bun 51, Investigation Clerk 6.93, Glu 138, Ca 7.0, AST 273, ALT 165, Alb 2.4 MEDICATIONS: Reviewed. Fentanyl, Propofol off GI: BMx4 08/27 SKIN: wound care pending. Per nursing notes, pt has stg 2 PU on buttock, heel and scapula NUTRITION SUPPORT: Nepro currently running at 30ml/hr providing 1188kcal and 53g pro ANTHROPOMETRICS: Current Wt: 105.6kg, BMI: 34.4kg/m2, Admit wt: 95.1 kg. IBW: 75.45 kg (114% IBW) ESTIMATED NEEDS (VENT, Dialysis, wounds, BMI) Calories: 2295-2610kcal (22-25 kcal/kg BW) Protein: 110-145 g protein (1.5-1.8 g/kg BW IBW) Fluid: Approx. ~2610 mL (25mL/kg BW) NUTRITION DIAGNOSIS: 1) Inadequate oral intake related to inability to consume sufficient energy, as evidenced by NPO/vent status.---PERSISTS. INTERVENTION: 1) Due to propofol being turned off, will increase TF goal rate to 65ml/hr to provide 2574kcal and 115g pro (100% estimated needs). MONITOR/EVALUATE: NPO/vent status, TF advc/maggy, labs, POC, GI/nutrition status. Follow per high nutrition risk guidelines.
--- NOTE | 2016-08-27 11:09 | DRSVH ---
PROCEDURE: X-RAY CHEST ONE VIEW, PORTABLE ([id number]) INDICATIONS: intubated, ET placement TECHNIQUE: One view of the chest was acquired. COMPARISON: [facility], CR, XR CHEST 1VW (PORTABLE), 08/26/2016, 4:26. FINDINGS: Surgical changes and devices: ET tube with tip exam of the hafsa. Enteric tube with tip projecting o ayaan the left upper quadrant. Lungs and pleura: No pleural effusions or pneumothorax. Mild left basilar atelectasis. Otherwise the lungs are clear. Mediastinum: Mediastinal contours appear normal. Heart size is normal. Bones and chest wall: No suspicious bony lesions. Overlying soft tissues appear unremarkable. IMPRESSION: 1. Left basilar atelectasis. Otherwise lungs are clear. 2. ET and enteric tubes. Dictated by: Jacob Mosqueda M.D. on 08/27/2016 at 9:53 Approved by: Jacob Mosqueda M.D. on 08/27/2016 at 9:54
--- NOTE | 2016-08-27 13:52 | PROG NOTE ---
[address] [address] PROGRESS NOTE PATIENT: SANDY SOSA : 1975 MR#: [id number] ADMIT: 08/23/2016 JOB ID: [id number] DATE: 08/27/2016 PULMONARY CRITICAL CARE PROGRESS NOTE: The patient is a 41-year-old man with polysubstance abuse-alcohol and cocaine admitted with aspiration pneumonia and hypoxic respiratory failure. The patient was seen and evaluated with resident physician, Dr. Roni Marion. Please refer to his separate detailed note for additional information. INTERVAL HISTORY: He is opening his eyes, following commands. Mental status is clearly improved today. REVIEW OF SYSTEMS: Could not be obtained since he is intubated. PHYSICAL EXAMINATION: Vital signs reviewed. He is on minimal vent settings. General: Intubated, off all sedation. Opens eyes. Follows commands. Chest: Clear to auscultation. LABORATORIES: Reviewed. ASSESSMENT AND RECOMMENDATIONS: 1. Acute hypoxic respiratory failure on mechanical ventilation since August 23, 2016. 2. Aspiration pneumonia. 3. Acute renal failure with rhabdomyolysis. 4. Acute encephalopathy-improved. 5. Alcohol intoxication. 6. Polysubstance abuse including cocaine and alcohol. Today his neurologic status is much better. He has no evidence of focal deficits on my brief evaluation and so we started him on a spontaneous breathing trial since he is on minimal ventilator settings. He is doing extremely well on the breathing trial and I would like to continue this for at least an hour and consider extubation after that if he passes. He is on Zosyn and azithromycin for aspiration pneumonia. Please continue a total of seven day course for this. He is getting daily dialysis per nephrology for his rhabdo and is still anuric. I stopped all IV fluids today. He is on appropriate DVT and GI prophylaxis. He is also getting thiamine. He is a FULL CODE. CRITICAL CARE TIME: 45 minutes.
--- NOTE | 2016-08-27 14:14 | NUR ---
Social Work: Basic Assessment/Multidisciplinary Rounds Data& Assessment: Pt was discussed in AM rounds today, per MD pt remains on the vent. Per EEG, there brain activity present. SW met with pt at bedside to check in and assess for any unmet needs with the assistance of the video stick director of student financial aid. Pt lives in [place] with his family and is independent at baseline with all ADL's with no need for DME. Pt reflects that prior to this hospitalization pt was " a very healthy person." Pt does not have insurance coverage, SW provided pt with financial institution treasurer application. Pt goes to [facility] for primary care. Pt drives at baseline. Pt provided with social work number on whiteboard. Pt states that if pt medically improves, they have DME at home that pt may use (including a walker) if pt requires a little more assistance with ambulation. SW to continue to follow for medical progression and improvement. Pt denies any other needs at this time. SW to continue to follow for MD orders and pt needs. Plan: Pt remains on the vent. Pt denies any other needs at this time. SW to continue to follow for MD orders and pt needs. JEFF Swan
[2016-08-27] MEDS ORDERED: Furosemide 10 mg/mL 10 mL Inj IVPUSH ONE (14:20)
--- NOTE | 2016-08-27 14:22 | PROG NOTE ---
[address] [address] PROGRESS NOTE PATIENT: SANDY SOSA : 1975 MR#: [id number] ADMIT: 08/23/2016 JOB ID: [id number] DATE: 08/27/2016 NEUROLOGY PROGRESS NOTE: REQUESTING PHYSICIAN: Dr. Ybarra. SUBJECTIVE: The patient is a 41-year-old gentleman with presumed anoxic injury found down with renal failure and possible aspiration pneumonia who remains on a ventilator. Yesterday he demonstrated voluntary eye opening which has persisted. Voluntary movement otherwise has been noted by family. The patient is on a weaning trial this morning. The patient's mother and sister are at the bedside. MEDICATIONS: Unchanged with the exception of propofol and fentanyl stopped this a.m. REVIEW OF SYSTEMS: Cannot be obtained due to patient's coma/encephalopathy. OBJECTIVE: Vital signs: Blood pressure 154/76, temperature elevated at 38, pulse oximetry 98% on mechanical ventilator. Head: Normocephalic, atraumatic. Cardiac: Regular rate and rhythm. Lungs: Clear. Extremities: No edema or rashes. Skin: Warm to the touch. NEUROLOGIC EXAMINATION: The patient alert to voice and pain but easily falls back to being unresponsive. No voluntary movement noted in the extremities. He raises an eyebrow and opens his eyes. Cranial nerves: Sluggish pupils. No facial asymmetry. Limited examination due to intubation. The patient makes eye contact briefly. Motor: As above no voluntary movement noted. Strength cannot be assessed. Deep tendon reflexes trace throughout with plantar reflex equivocalTone: Flaccid. Sensation: Responds to pain intermittently. The rest of examination is deferred due to patient's comatose/encephalopathic state. LABORATORY STUDIES: Please see chart to review. Continued low hemoglobin and hematocrit, elevated creatinine and BUN plus other abnormalities. IMAGING STUDIES: No new imaging studies of the brain to review. ASSESSMENT/RECOMMENDATION: The patient is a 41-year-old gentleman with presumed anoxic injury on August 23, 2016. He remains encephalopathic but has shown signs of voluntary movement. The patient's prognosis is guarded due to the length of time he was presumed down. There was evidence of basal ganglia involvement on CT. If patient fails to make significant improvement, recommend repeat head CT. I will follow with you as needed. The family was advised of my recommendations and the guarded condition yesterday. I explained that there is likely some brain injury and over time will be able to assess how much. Please call if needed. Will sign off for now. AUBREY
--- NOTE | 2016-08-27 14:23 | PCM.PNNEPH ---
Subjective Date of Service Aug 27, 2016 Subjective HD x2 consecutive days. Remains oliguric. Hypertensive. Intubated and sedated but follow commands. Exam Vital Signs Vital Sign - Last Date Time Temp Pulse Resp B/P Pulse Ox O2 Delivery O2 Flow Rate FiO2 08/27/16 11:33 Ventilator 08/27/16 11:32 38.0 73 23 154/76 98 30 08/23/16 05:20 15 Intake and Output 08/26/16 08/26/16 08/27/16 Cumulative From/Thru 15:00 23:00 07:00 08/23/16 05:20 - 08/27/16 05:40 Intake Total 1240 ml 1926 ml 10536 ml Output Total 1660 ml 115 ml 4095 ml Balance -420 ml 1811 ml 74849 ml Intake IV Total 1240 ml 1610 ml 44014 ml Tube Feeding 196 ml 196 ml Tube Irrigant 120 ml 360 ml Output Urine Total 60 ml 110 ml 1620 ml Stool Total 5 ml 5 ml Gastric Drainage Total 200 ml 1070 ml Ultrafiltrate 1400 ml 1400 ml # Bowel Movements 3 11 Exam GENERAL: Intubated, sedated, responsive to verbal and painful stimuli. HEENT: Head is normocephalic and atraumatic. NECK: Supple, no elevation of JVD, No carotid bruits. No lymphadenopathy or thyromegaly. LUNGS: Clear to auscultation, equal breath sounds bilaterally, no wheezing, no rhonchi no rales. HEART: Normal S1/S2, Regular rate and rhythm, no murmurs, rubs or gallops. 2+ pules throughout. ABDOMEN: Soft, nondistended. Decreased bowel sounds. No hepatosplenomegaly was noted. EXTREMITIES: Without any cyanosis, clubbing, rash, lesions or edema. right femoral HD cath in place. Lab and Diagnostics Result Diagram: 08/27/16 0545 08/27/16 0545 Microbiology Blood cultures pending MRSA swab pending X-Rays, CTs and MRIs 08/23/16 PROCEDURE: CT BRAIN WITHOUT CONTRAST ([id number]) IMPRESSION: No acute disease. 08/23/16 PROCEDURE: X-RAY CHEST ONE VIEW, PORTABLE ([id number]) IMPRESSION: Endotracheal tube appropriate in position. No focal infiltrate or abnormality is seen in the lungs. Additional Diagnostics ABG DateTimeAnalyzed 10:20:00 -_ pH ____7.354 - 7.350 7.450 pCO2 ___31.5__ -mmHg 35.0 45.0 pO2 160 -mmHg 69.0 116 HCO3- ___17.1__ -mmol/L 22.0 26.0 ABE ___-6.9__ -mmol/L -2.0 2.0 tHb ___14.4__ -g/dL O2Hb ___98.1__ -% COHb ____0.6__ -% MetHb ____0.1__ -% sO2 ___98.8__ -% 25.0 FIO2 ___45.0__ -% PRVC 20 - PEEP ____8.0__ -cmH2O Vt __550.0__ -L Drawn By gj - Date/Time Notified____ 10:36:00 -_ Spontaneous_RR ___20.0__ -b/min Oxygen Device 1 VENTILATOR - Notified By gj - Notified Whom ____HUYNH - B 760 -mmHg tO2 ___20.1__ -Vol% Jeff test _Positive - Plan Impression 1. Acute kidney injury secondary to rhabdomyolysis. requiring HD. First treatment on 08/25. 2. Rhabdomyolysis. 3. Acute hypoxic respiratory failure. 4. Resolved hyperkalemia 5. Acute transaminitis. 6. Polysubstance abuse. 7. Anion gap metabolic acidosis. 8. Hypocalcemia and hyperphosphatemia. Plan: Third hemodialysis today for 3.5 hours, UF 1-2L. IV lasix 100 mg x 1. Continue to monitor kidney function and urine output on a daily basis. Nephrotoxins, and adjust medication according to estimated GFR. Alejandro Tapia MD Aug 27, 2016 14:23
--- NOTE | 2016-08-27 15:11 | PCM.PALLBR ---
Palliative Care Recommendation Summary of palliative recommendations: -Symptom management (Pain/other) -DPOA/Advanced Directives/POLST: 1. FULL Code 2. is designated decision maker. 3. No prior paperwork for AD or POLST. -Family/emotional support -Spiritual support: family is Religious and the culture of Catholicism and regular mass attendance is part of their life. They don't want a box fabricator to visit at this time as they feel, if the patient knew he would panic and think he is dying. Patient/Family Goals: specific boundaries on care not discussed. At this time, family desires all possible interventions to help pt get back to his baseline health. 08/27: Dr. Wolfe met with , mother and 3 other family members in room at pt' s bedside with [place] speaking buildings and grounds superintendent. She gave them the CCU plan for the day and answered questions. 08/26 Family Conference Team Meeting (FCTM): On Hospital Day 4 Palliative Care had an initial meeting with family to gather background information about the pt and give a medical update compiled by the Attending hospitalist team through a [place] Speaking Commercial Agent. We met with family at length. This included pt mother Cyndi, sister Guillermina, nephew Paresh, cousin Sina and his spouse Jacquelyn and patient's spouse Elise Douglas (buildings and grounds superintendent services), Genet George (), Hazel Wolfe, and Jyotsna--all from [facility] Team-- and Dr. Rodriguez ([facility] hospitalist restaurant team member). Stella notes that she and pt have three children; Santiago Sánchez (13), Zofia (8) and Radha (6). Discussed at length pt current condition and answered questions about medical issues. Dr. Hastings explained that neurological workup is ongoing and outcome is not clear. Dr. Wolfe went over treatments being used to care for pt's lungs and kidneys. 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 He is proud of his capabilities and has learned his skills on the job. Family is Religious and is part of the worship at [facility] in [place]. Pt enjoys his children and is noted to be a good father. He is described as someone that others esteem and look up to, someone others love, he thinks about the future of his children and plans for them and is a hard worker. Pt has long struggled with depression. He has felt sad that he was raised by his grandmother and for reasons that are unclear, not by his parents. He longed to have a family of his own so that he could be a positive influence and offer parental love and support for his children that he feels he didn't receive. He has disclosed to his spouse and sister that he had depression and at times wished that he had not been born. Family does not think that current episode was a suicide attempt. Pt comes from a family of heavy drinkers and has used drugs and ETOH at baseline, and more so in recent days prior to this hospitalization. Sister feels that pt was not setting a good example for his children with his use of drugs and ETOH. Spouse disclosed pt feelings of depression and sadness and this was very difficult for her to discuss this in front of pt's family. Pt sister expressed support for her to disclose, indicating that this needs to be talked about in order for pt to get the help that he needs. Patient's mother Cyndi, became upset and had to leave the room early and it appeared that she was not aware of some of the family issues brought forward by the and sister today. Family assured by team and buildings and grounds superintendent that this information about family issues , depression, drinking is confidential and medical team only uses information to help monitor pt's health. For example, as a result of this information, the team may be watching for signs of withdrawal from alcohol or considering start of antidepressant when Santiago is able to take po or have a feeding tube to deliver medication. Dr. Wolfe also asked family to please be aware that CCU rules are that only 2 people from family allowed in CCU room at a time, and rest of family/friends must wait in 2nd floor public waiting areas outside CCU. Problems: Resuscitation Status Resuscitation Status: CPR: Attempt Resuscitation POLST Updates/Changes Previous POLST?: No Total time 65 minutes; >50% face to face with patient and/or family, providing counselling regarding plans and recommendations, and in care coordination with his/her medical teams. Palliative Brief Note Date of Service Aug 27, 2016 . Patient Identification Santiago Ann is a 41 year old male who presented to the ED via EMS after being found unconscious at 0430H with vomit on himself by his who last saw him well at 1900H the previous night. EMS was called and CPR instructions were given over the phone to the as the patient had abnormal breathing. She gave him CPR until medics arrived. The medics gave the patient 2 mg of Narcan IV which caused his arms to move but he continued to be unresponsive. The pt's reports no falls or trauma to the pt's head. She also states that the pt's brother has possibly had seizures in the past. She mentioned that Mr. Ann drank a bottle of tequila the night prior to admission and that he frequently drinks alcohol. He has had no prior episodes like this. In the ED, vomit was suctioned out of the throat, and he was intubated. CT showed no acute disease and chest x-ray was unremarkable .He was found to be hyperkalemic and acidotic on ABG. Urine Tox in the emergency department showed evidence of cocaine. Hospital Course: He was admitted on 08/23 from ED to the CCU for further management. He developed acute tubular necrosis secondary to rhabdomyolysis and is being followed by Nephrology and received his first dialysis treatment 08/25 for rising creatinine related to elevated CKs. Dr. Lopez has been treating him for possible aspiration pneumonia. The patient has continued to be unresponsive. An EEG done yesterday while the patient was on propofol showed slowing at approximately 6 hertz but no epileptiform abnormalities and no evidence of subclinical seizures to explain his coma state. Head CT was normal, but 2nd head CT completed on August 25 showed evidence of what appeared to be basal ganglial or globus pallidus hyperdensities. There were no other signs to suggest edema. A neurology consultation was requested when the patient failed to improve and continued to show suggestion of brainstem dysfunction with doll's eyes and inability to breathe on his own off the respirator. He has, however, remained on propofol which has been tapered but not completely due to the evidence of bronchospasm at times according to nursing staff. Significant for his neurological examination, the propofol has been stopped. Off propofol there was some voluntary movement of his eyes and facial response to familiar voices. 08/27: Today is Hospital Day 5. In CCU rounds, the patient's clinical condition was discussed extensively. His propofol and fentanyl infusions have been weaned overnight, and he is now only getting prn doses of these when agitated, restless , or if RN perceives he has pain. His neuro status is still unclear, but off sedation, he is now opening his eyes, makes brief eye contact at times, and intermittently follows commands to squeeze hands. On 08/26, neurology implementation consultant counseled family that he likely has had some anoxic injury but it is yet unclear how much, that we will have to monitor this over time. He will get his #3 dialysis treatment; he is still anuric and his creatinine remains 6.9, total CK 12,000, down from 31,000 on admission. Pt was on a weaning trial when Dr. Wolfe made rounds and spoke to family this afternoon. Marly Wolfe MD Aug 27, 2016 15:11 Marly Wolfe MD Aug 27, 2016 15:11
--- NOTE | 2016-08-27 18:14 | NUR ---
status Patient progressing. Opens eyes to voice, nodding yes/no to questions asked. Tracking, weakly outboard system operator and wiggles toes. Denies pain. SBT completed with success. Continues on PRVC, plan to extubate 08/28 if pt continues in current fashion. Hypertensive. SR per cardiac cath lab manager, HR 80s. Low grade fevers continued. Espinoza to DD, 225 this shift. Dialyzing. Tolerating nepro tube feeding, residuals < 15cc. Blood glucose controlled. Will continue to monitor.
--- NOTE | 2016-08-27 19:28 | NUR ---
Dialysis note 3 1/2 hr tx Net UF 1000 Right femoral cath dressg CDI QB 300 Stable throughout tx Sedatives have been dc'd On vent Limbs dwelled with Heparin 1000 and secured with caps Pt stable Report given to primary RN Luanne Please see DTR for complete record of Vs
[2016-08-27] MEDS ORDERED: Furosemide 10 mg/mL 4 mL Inj ONE (20:40)
[2016-08-27] MEDS ORDERED: Furosemide 10 mg/mL 2 mL Inj ONE (20:47)
[2016-08-27] MEDS ORDERED: Labetalol 5 mg/mL 4 mL Inj IVPUSH ONE (20:55)
--- NOTE | 2016-08-27 20:56 | PCM.PNMED ---
Subjective Date of Service Aug 27, 2016 Subjective Overnight Events: None Hospital Day 5, Mr. Santiago Ann remains intubated and sedated. He has improved neurologically, opening eyes to name and squeezing fingers to command. 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 Per discussion with his , Stella, she mentions that she found out more information in that he was taking a medication called "Robax [place]" for back pain which has ibuprofen and methocarbomol in it. It's unclear how much or when he took this medication, but she mentions it was recent. Exam Vital Signs Vital Sign - Last Date Time Temp Pulse Resp B/P Pulse Ox O2 Delivery O2 Flow Rate FiO2 08/27/16 04:33 30 08/27/16 04:23 66 161/89 100 08/27/16 04:00 37.3 19 Mechanical Ventilator 08/23/16 05:20 15 Intake and Output 08/26/16 08/26/16 08/27/16 Cumulative From/Thru 15:00 23:00 07:00 08/23/16 05:20 - 08/27/16 05:40 Intake Total 1240 ml 1926 ml 06546 ml Output Total 1660 ml 115 ml 4095 ml Balance -420 ml 1811 ml 84328 ml Intake IV Total 1240 ml 1610 ml 13492 ml Tube Feeding 196 ml 196 ml Tube Irrigant 120 ml 360 ml Output Urine Total 60 ml 110 ml 1620 ml Stool Total 5 ml 5 ml Gastric Drainage Total 200 ml 1070 ml Ultrafiltrate 1400 ml 1400 ml # Bowel Movements 3 11 Exam General: Patient intubated and sedated, no sign of distress HEENT: Normocephalic, atraumatic. Pupils reactive to light. Cardiovascular: Regular rate and rhythm with no murmurs, rubs, or gallops appreciated Pulmonary: Clear to auscultation anteriorly with equal air sounds bilaterally, intubated. Abdomen: Bowel tones present. Soft, nondistended. Extremities: No clubbing, cyanosis, edema, or lymphadenopathy appreciated. Skin: Large erythemetous region around sacrum with open wound about 3 inches in diameter. Similar looking presentation at upper thorax with some ruptured blisters. Neurological: Unable to assess as patient sedated. He is opening eyes to name and squeezing fingers on command. Lab and Diagnostics Result Diagram: 08/26/16 0530 08/26/16 0530 Microbiology Blood cultures pending MRSA swab pending X-Rays, CTs and MRIs 08/23/16 PROCEDURE: CT BRAIN WITHOUT CONTRAST ([id number]) IMPRESSION: No acute disease. 08/23/16 PROCEDURE: X-RAY CHEST ONE VIEW, PORTABLE ([id number]) IMPRESSION: Endotracheal tube appropriate in position. No focal infiltrate or abnormality is seen in the lungs. Additional Diagnostics ABG DateTimeAnalyzed 10:20:00 -_ pH ____7.354 - 7.350 7.450 pCO2 ___31.5__ -mmHg 35.0 45.0 pO2 160 -mmHg 69.0 116 HCO3- ___17.1__ -mmol/L 22.0 26.0 ABE ___-6.9__ -mmol/L -2.0 2.0 tHb ___14.4__ -g/dL O2Hb ___98.1__ -% COHb ____0.6__ -% MetHb ____0.1__ -% sO2 ___98.8__ -% 25.0 FIO2 ___45.0__ -% PRVC 20 - PEEP ____8.0__ -cmH2O Vt __550.0__ -L Drawn By gj - Date/Time Notified____ 10:36:00 -_ Spontaneous_RR ___20.0__ -b/min Oxygen Device 1 VENTILATOR - Notified By gj - Notified Whom ____HUYNH - B 760 -mmHg tO2 ___20.1__ -Vol% Jeff test _Positive - Assessment & Plan Santiagorudi Ann is a 41 year old male with no known past medical history who came in unresponsive after being found with vomit around him, now sedated and intubated for acute hypoxemic respiratory failure secondary to aspiration. Anoxic Brain Injury, present on admission, active Secondary to asipiration and intoxication. Patient has had large volume of vomit suctioned out in the ED. Chest X-ray personally reviewed and is unremarkable for pneumonia. Differential includes anoxic brain injury as patient has been unresponsive since admission. EEG shows evidence of slowing but no other abnormalities to suggest that the patient is having clinical seizures causing his symptoms. There is significant metabolic dysfunction. - Currently intubated and sedated. - We will continue to treat with Zosyn as this still may be a possibility of aspiration pneumonia - Azithromycin stopped 08/27/16 - Leukocytosis resolved - ICU, Infectious disease, Palliative care, nephrology and neurology are following - CT head results as above. - Repeat Blood Cultures pending - Continue tube feeds Metabolic Acidosis, present on admission, active Likely secondary to lactic acidosis and uremia - Monitor CMP Rhabdomyolysis, [place] admission[place] [id number]. Likely secondary to being in one position for 9 hours. Patient has large erythematous regions at pressure points of sacrum and upper thorax with open wound at sacrum. - IV fluids stopped 08/27/16 - Monitor CK - Wound care consult - Nephrology consulted and is following. Acute Kidney Injury, present on admission, active Cr on admission at 3.52 and increasing after admission. Unknown history of kidney injury. - IV fluids stopped 08/27/16 - Nephrology (Dr. Haynes) currently following case. Hemodialysis done 08/25/16, and 08/27/16. - Continue to monitor Hyperkalemia, present on admission (resolved) - Continue to monitor Elevated Liver Function Tests, present on admission, active Likely due to chronic alcohol use - Currently trending down - Continue to monitor Alcohol abuse -Patient currently sedated no need to institute CIWA protocol at this time Drug abuse -Patient is a known user of cocaine and ice -Per family, last known use is around 5 months ago. DVT prophylaxis: Heparin sub Q GI prophylaxis: Famotidine GI Prophylaxis: Proton Pump Inhibitor VTE Mechanical Devices: Intermittant Pneumatic CD Resuscitation Status: CPR: Attempt Resuscitation Attending Statement The patient was seen and examined together with Dr. Rodriguez on 08/27/2016 and I agree with the history, exam and plan as outlined in the note above. . Enrique Rodriguez DO Aug 27, 2016 06:26 Betito Arias MD Aug 28, 2016 07:58
[2016-08-28] VITALS (12 sets, daily range): BP systolic 131–181; BP diastolic 80–97; PULSE 70–84; RESP 16–26; O2SAT 95–100
[2016-08-28] MEDS: Chlorhexidine 0.12% 15 mL Oral Solution MT SCH ×6 (00:05→20:40)
[2016-08-28] MEDS: Heparin 5,000 Unit/mL Inj SUBQ SCH ×3 (00:05→16:17)
[2016-08-28] MEDS: fentaNYL-PF 50 mCg/mL 2 mL Inj IVPUSH PRN (00:55)
[2016-08-28] MEDS ORDERED: Labetalol 5 mg/mL 4 mL Inj IVPUSH ONE (03:20)
[2016-08-28 03:46] LABS: Mean Corpuscular Hemoglobin 28.7 pg (27.0-35.0); Mean Corpuscular Volume 86.8 fL (81-100); Platelet Count 115 bil/L (150-400)
--- NOTE | 2016-08-28 04:04 | ABG ---
DateTimeAnalyzed 03:56:15 -_ pH ____7.509 - 7.350 7.450 pCO2 ___34.3__ -mmHg 35.0 45.0 pO2 ___87.7__ -mmHg 69.0 116 HCO3- ___27.2__ -mmol/L 22.0 26.0 ABE ____3.9__ -mmol/L tHb ___11.9__ -g/dL O2Hb ___96.3__ -% COHb ____1.1__ -% 1.5 MetHb ____0.3__ -% sO2 ___97.6__ -% FIO2 ___30.0__ -% PEEP ____5.0__ -cmH2O Set_RR 14 -b/min Vt __550.0__ -L Drawn By MK - Date/Time Notified____ 04:03:00 -_ Spontaneous_RR 14 -b/min Oxygen Device 1 VENTILATOR - Notified By MK - K+ ____3.5__ -mmol/L tO2 ___16.2__ -Vol% Jeff test _Positive -
[2016-08-28 04:22] LABS: BASOPHILS % (AUTO) 0 % (0-3); EOSINOPHILS % (AUTO) 2 % (0-5); MONOCYTES % (AUTO) 9 % (4-12); NEUTROPHILS % (AUTO) 73 % (40-74)
--- NOTE | 2016-08-28 06:19 | NUR ---
HTN/Pain/fever P: SBP 170-180's, 70-80's NSR I: labetalol 10mg IV x 2 given E: SBP 150-160's mmhg Given lasix 100mg slow IVP, branham drained with 450cc. Fever/Pain P: tmax 38.4, feldt score 2. I; Given tylenol 1gm IV, fentanyl 50 mcg x 1. E: last temp 37.5 C, feldt o
[2016-08-28] MEDS: Propofol Inj 1,000,000 MCG in IV Premix 1 EACH IV SCH (07:24)
--- NOTE | 2016-08-28 07:58 | DRSVH ---
PROCEDURE: X-RAY CHEST ONE VIEW, PORTABLE ([id number]) INDICATIONS: intubated. ET placement TECHNIQUE: One view of the chest was acquired. COMPARISON: Located Within [facility], CR, XR CHEST 1VW (PORTABLE), 08/27/2016, 5:11. FINDINGS: Surgical changes and devices: ET tube with tip 5 CM above the hafsa. Enteric tube with tip at the G E junction. Right PICC tip in the low SVC. Lungs and pleura: No pleural effusions or pneumothorax. Left basilar atelectasis otherwise the lungs are clear. Mediastinum: Mediastinal contours appear normal. Heart size is normal. Bones and chest wall: No suspicious bony lesions. Overlying soft tissues appear unremarkable. IMPRESSION: Stable left basilar atelectasis and support lines. Dictated by: Jacob Mosqueda M.D. on 08/28/2016 at 7:54 Approved by: Jacob Mosqueda M.D. on 08/28/2016 at 7:56
[2016-08-28] MEDS: Thiamine Inj 200 MG in Dextrose 5% 50 ML IV SCH (08:27)
[2016-08-28] MEDS: Piperacillin-Tazo 3.375 Gm Inj 3.375 GM in Dextrose 5% Minibag Plus 50 ML IV SCH ×2 (08:28→21:45)
[2016-08-28] MEDS: Famotidine Inj 20 MG in IV Premix 1 EACH IV SCH (08:29)
--- NOTE | 2016-08-28 10:38 | PROG NOTE ---
[address] [address] PROGRESS NOTE PATIENT: SANDY SOSA : 1975 MR#: [id number] ADMIT: 08/23/2016 JOB ID: [id number] DATE: 08/28/2016 REASON FOR FOLLOW UP: Aspiration pneumonia with fever and elevated procalcitonin. INTERIM HISTORY: Recall this is a gentleman who was found on the floor comatose at home with probable aspiration. Over the course of the past 24 hours he has been successfully extubated and has awakened. This morning he is awake, following commands, and mouthing words to answers which are appropriate. His respiratory status is stable and he is oxygenating well on minimal nasal respiratory support. He continues to have fairly low urine output and is requiring ongoing dialysis which is happening this morning as we examined the patient. This case discussed extensively during ICU rounds. The patient is able the mouth answers to questions which seem quite appropriate and he is following commands this morning, though he is not too forthcoming with respect to his complaints today. PHYSICAL EXAMINATION: Reveals a gentleman who still has low-grade fevers 38.3 oral, pulse 79 and sinus rhythm on the monitor, saturating well on 2 L. Blood pressure 169/91. No vasopressor agents. His eyes are open. He does not have conjunctivitis or scleral icterus. Oral cavity unremarkable. Lungs scattered wheezes. Cardiac rhythm regular rate and rhythm, no murmurs. Abdomen quite soft, nontender today. Still has a Espinoza catheter. A femoral dialysis line is present on the right and appears uninfected and is currently being used to dialyze the patient. His extremities are essentially unremarkable except for the bilateral heel ulcers. Because of the presence of the groin line we are unable to flip the patient over and look at his buttock and shoulder shallow type 2 lesions. LABORATORIES: Include white count 12,400 which is up slightly overnight. Diff though is reassuring 73% segs. He does have 2% metamyelocytes and myelocytes. His creatinine is 6.5, but difficult to interpret in view of the fact he is on ongoing dialysis. AST is still 190, ALT 151. Alk phos is normal. CPK is trending down. Recall that his CPK started at 45,000 and is now down to 7000. Serologic studies, including QuantiFERON Gold which is pending. HIV is negative. Blood cultures negative. Sputum cultures negative. MRSA screen negative. IMAGING: Shows subtle bibasilar infiltrates which are relatively stable and could represent aspiration pneumonia or atelectasis. IMPRESSION: This patient is dramatically improved over the course of the past 24 hours in that he has been successfully extubated and is awake and able to follow some commands. He remains in renal failure with modest, but increasing urine output and ongoing dialysis requirement. His procalcitonin is coming down, though still quite elevated and his white count remains mildly elevated as well. I suspect that his elevated procalcitonin is partially on the basis of his renal failure which can produce procalcitonins as high as 1.5, as well as a resolving aspiration type pneumonia. He also likely has some degree of alcoholic hepatitis and obviously also has rhabdomyolysis. RECOMMENDATIONS: 1. I continue with Zosyn to complete a total course of 7-8 days. 2. I continue to closely follow white count and procalcitonin. 3. We await the QuantiFERON Gold result. 4. Will continue to follow this patient with you.
--- NOTE | 2016-08-28 11:26 | PCM.PNMED ---
Subjective Date of Service Aug 28, 2016 Subjective Pulmonary critical care consultation Chino Ybarra (Roni) PGY3 and Attending Dr. Solis Patient is a 41-year-old male with medical history significant for polydrug abuse, EtOH and cocaine was found obtunded, unresponsive and presented to the ED initially intubated for airway protection, admitted to the ICU for anoxic brain injury, hypoxic respiratory failure, and rhabdomyolysis with AK requiring hemodialysis. Patient remains in ICU for hypoxic respiratory failure. No overnight events. Yesterday, plan were to extubate the patient based on improved mentation and thriving on pressor support breathing trial. However after several hours, patient respiratory rate increased while patient was on hemodialysis, thus extubation were held off. Today, patient is off of all sedation, follows commands, and did well on pressure support breathing trial, thus successfully extubated. Patient remains hemodynamically stable not on any pressors. He continued to spike fevers however. Unknown sources status far. Possible infection versus alcoholic- induced hepatitis. WBC elevated today 12.4 with a pro-calcitonin at 2.2, albeit , down from 3.95 yesterday. Patient remains on Zosyn. On the side note, in discussion with family per report, patient had some back pain and took a muscle relaxant from a friend, proceeded to ingest large quantities of alcohol the night prior to admission. Exam Vital Signs Vital Sign - Last Date Time Temp Pulse Resp B/P Pulse Ox O2 Delivery O2 Flow Rate FiO2 08/28/16 09:07 79 08/28/16 08:30 Ventilator 08/28/16 08:30 38.3 19 169/91 98 30 08/23/16 05:20 15 Intake and Output 08/27/16 08/27/16 08/28/16 Cumulative From/Thru 15:00 23:00 07:00 08/23/16 05:20 - 08/28/16 06:16 Intake Total 1128 ml 1308 ml 54141 ml Output Total 1725 ml 520 ml 6340 ml Balance -597 ml 788 ml 22357 ml Intake IV Total 602 ml 599 ml 88817 ml Tube Feeding 446 ml 589 ml 1231 ml Tube Irrigant 80 ml 120 ml 560 ml Output Urine Total 225 ml 450 ml 2295 ml Stool Total 200 ml 70 ml 275 ml Gastric Drainage Total 1070 ml Ultrafiltrate 1300 ml 2700 ml # Bowel Movements 11 Exam General: Alert, followed commands, resting comfortably, extubated. HEENT: Normocephalic, atraumatic. Sclera anicteric, MACIE Neck: No JVD, No bruits. No lymphadenopathy or thyromegaly. Cardiovascular: Regular rate and rhythm with no murmurs, rubs, or gallops appreciated Pulmonary: b/l air sound with no crackles, wheezes, or rhonchi. no use of accessory muscles. Abdomen: +Bowel sound, Soft, nontender, nondistended. : Espinoza catheter in place Extremities: No clubbing or cyanosis, no lymphedema, no b/l lower leg edema Skin: Temperature, large skin breakdown in the upper back and sacral area, right femoral HD catheter in place nonerythematous, no ecchymosis. Small eschar approximately 1 inch found on right knee, nonpurulent, nonerythematous. Cannot appreciates any abscess, though unable to turn patient over 2nd to dialysis. Neurological: Spontaneous eye opening, responds to commands. moving on all 4 limbs. Lab and Diagnostics Result Diagram: 08/28/16 0340 08/28/16 0340 Microbiology Blood cultures pending MRSA swab pending X-Rays, CTs and MRIs 08/23/16 PROCEDURE: CT BRAIN WITHOUT CONTRAST ([id number]) IMPRESSION: No acute disease. 08/23/16 PROCEDURE: X-RAY CHEST ONE VIEW, PORTABLE ([id number]) IMPRESSION: Endotracheal tube appropriate in position. No focal infiltrate or abnormality is seen in the lungs. Additional Diagnostics ABG DateTimeAnalyzed 10:20:00 -_ pH ____7.354 - 7.350 7.450 pCO2 ___31.5__ -mmHg 35.0 45.0 pO2 160 -mmHg 69.0 116 HCO3- ___17.1__ -mmol/L 22.0 26.0 ABE ___-6.9__ -mmol/L -2.0 2.0 tHb ___14.4__ -g/dL O2Hb ___98.1__ -% COHb ____0.6__ -% MetHb ____0.1__ -% sO2 ___98.8__ -% 25.0 FIO2 ___45.0__ -% PRVC 20 - PEEP ____8.0__ -cmH2O Vt __550.0__ -L Drawn By gj - Date/Time Notified____ 10:36:00 -_ Spontaneous_RR ___20.0__ -b/min Oxygen Device 1 VENTILATOR - Notified By gj - Notified Whom ____HUYNH - B 760 -mmHg tO2 ___20.1__ -Vol% Jeff test _Positive - Assessment & Plan Patient is a 41-year-old male with no significant medical history however does have a significant drinking problem presented to [facility] after patient found unresponsive with aspirated noted. Patient was subsequently intubated for airway protection and admitted for anoxic brain injury and rhabdomyolysis. Problem list Pyrexia Anoxic brain injury Rhabdomyolysis Acute kidney injury EtOH-induced hepatitis Normocytic anemia Patient likely had anoxic brain injury secondary to aspiration due to EtOH intoxication plus and appropriate use of muscle relaxant, became unresponsive, immobile for at least 12 hours, thus causing rhabdomyolysis and subsequent acute kidney injury. Mentation is significantly improved for the past 5 days, patient is now extubated while still receiving hemodialysis. Puzzling currently however is the continue high fever. Unknown to whether this is related to possible pneumonia, versus abscess, cellulitis, EtOH hepatitis, versus drug-induced, Zosyn. Pyrexia - Possible infection perhaps respiratory, or less likely a cellulitis, versus drug-induced, EtOH-induced hepatitis - Blood culture has been negative thus far, pro-calcitonin is trended downward. Repeat UA sent. - Maintain patient on Zosyn, perhaps changing antibiotic regimen - Monitor Acute kidney injury, improving - Secondary to rhabdomyolysis - Patient continued to receive dialysis via right femoral catheter [facility] - Appreciate nephrology continue following Rhabdomyolysis - Secondary to immobility due to a combination of EtOH intoxication and an muscle relaxant - Creatinine kinase will be cleared by hemodialysis - Trend CK Anoxic brain injury - Negative and improvement, follows commands, moving all 4 extremities, extubated - Initial CT scan unremarkable, however on repeat CT scan showed hypodensity in the globus pallidus - Consulted neurologist Dr. Pack, presumed anoxic brain injury, unable to assess full damage at this time. - PT and speech eval ordered - Repeat MRI to fully characterized the hypodensity in the globus pallidus Alcohol hepatitis - LFT's AST/ALT 190/151. Hepatitis/HIV panel negative - Discriminate function score -3.2, not a candidate for steroids at this time - Monitor - thiamine per hospitalist Aspiration pneumonitis, resolving - Still has mild elevation in white count, pro-calcitonin is significantly elevated however. - Additionally, patient spiked a fever today, other source of infection includes lines. - Continue Zosyn, stop azithromycin - Blood culture from lines negative 48 hours - Infectious disease Dr. Lopez has been invited to assess and treat this patient. Normocytic name - hemoglobin 10's down from 15.4 the day prior, stable however. - Concern for possible DIC, TTP, though no schistocytes on peripheral smear found. - Monitor Blistered skin - Upper back and sacrum - Consult wound care Hypoxic respiratory failure improving - Extubated - Nasal cannula O2 as needed to maintain pulse ox >95% Total critical care time 45min GI Prophylaxis: Proton Pump Inhibitor VTE Mechanical Devices: Intermittant Pneumatic CD Resuscitation Status: CPR: Attempt Resuscitation Attending Statement I have seen and examined this patient with the resident physician. Vital signs , labs, imaging have been reviewed. I agree with the assessment and plan above. Please refer to my separately dictated progress note for any modifications to above. Genny Solis M.D. Pulmonary and Critical Care medicine Pager [phone] Chino Ybarra DO Aug 28, 2016 11:25 Genny Solis MD Aug 29, 2016 16:10
--- NOTE | 2016-08-28 11:55 | PCM.PNMED ---
Subjective Date of Service Aug 28, 2016 Subjective Overnight Events: None Hospital Day 6, Patient remains intubated when saw in the AM, and was successfully extubated after a spontaneous breathing trial today. He is alert and responsive to questions. He is able to move his fingers and toes. He is having difficulty with strength in speech as would be expected after 5 days of intubation. He is currently receiving hemodialysis. Exam Vital Signs Vital Sign - Last Date Time Temp Pulse Resp B/P Pulse Ox O2 Delivery O2 Flow Rate FiO2 08/28/16 04:05 38.2 76 16 144/83 95 Mechanical Ventilator 30 08/23/16 05:20 15 Intake and Output 08/27/16 08/27/16 08/28/16 Cumulative From/Thru 15:00 23:00 07:00 08/23/16 05:20 - 08/28/16 06:16 Intake Total 1128 ml 1308 ml 10469 ml Output Total 1725 ml 520 ml 6340 ml Balance -597 ml 788 ml 01917 ml Intake IV Total 602 ml 599 ml 28685 ml Tube Feeding 446 ml 589 ml 1231 ml Tube Irrigant 80 ml 120 ml 560 ml Output Urine Total 225 ml 450 ml 2295 ml Stool Total 200 ml 70 ml 275 ml Gastric Drainage Total 1070 ml Ultrafiltrate 1300 ml 2700 ml # Bowel Movements 11 Exam General: Patient now extebuated 08/28/16, no sign of distress HEENT: Normocephalic, atraumatic. Pupils reactive to light. Cardiovascular: Regular rate and rhythm with no murmurs, rubs, or gallops appreciated Pulmonary: Clear to auscultation anteriorly with equal air sounds bilaterally Abdomen: Bowel tones present. Soft, nondistended. Extremities: No clubbing, cyanosis, edema, or lymphadenopathy appreciated. Skin: Large erythemetous region around sacrum with open wound about 3 inches in diameter. Similar looking presentation at upper thorax with some ruptured blisters. Neurological: Weakly responsive to questions, able to move toes and fingers. Lab and Diagnostics Result Diagram: 08/28/16 0340 08/28/16 0340 Microbiology Blood cultures pending MRSA swab pending X-Rays, CTs and MRIs 08/23/16 PROCEDURE: CT BRAIN WITHOUT CONTRAST ([id number]) IMPRESSION: No acute disease. 08/23/16 PROCEDURE: X-RAY CHEST ONE VIEW, PORTABLE ([id number]) IMPRESSION: Endotracheal tube appropriate in position. No focal infiltrate or abnormality is seen in the lungs. Additional Diagnostics ABG DateTimeAnalyzed 10:20:00 -_ pH ____7.354 - 7.350 7.450 pCO2 ___31.5__ -mmHg 35.0 45.0 pO2 160 -mmHg 69.0 116 HCO3- ___17.1__ -mmol/L 22.0 26.0 ABE ___-6.9__ -mmol/L -2.0 2.0 tHb ___14.4__ -g/dL O2Hb ___98.1__ -% COHb ____0.6__ -% MetHb ____0.1__ -% sO2 ___98.8__ -% 25.0 FIO2 ___45.0__ -% PRVC 20 - PEEP ____8.0__ -cmH2O Vt __550.0__ -L Drawn By gj - Date/Time Notified____ 10:36:00 -_ Spontaneous_RR ___20.0__ -b/min Oxygen Device 1 VENTILATOR - Notified By gj - Notified Whom ____HUYNH - B 760 -mmHg tO2 ___20.1__ -Vol% Jeff test _Positive - Assessment & Plan Santiago Ann is a 41 year old male with no known past medical history who came in unresponsive after being found with vomit around him, sedated and intubated for acute hypoxemic respiratory failure secondary to aspiration for 5 days and extubated on hospital day 6 following successful spontaneous breathing trial. Anoxic Brain Injury, present on admission, active Secondary to asipiration and intoxication. Patient has had large volume of vomit suctioned out in the ED. EEG shows evidence of slowing but no other abnormalities to suggest that the patient is having clinical seizures causing his symptoms. There is significant metabolic dysfunction. - Extubated on 08/28/16 - We will continue to treat with Zosyn as this still may be a possibility of aspiration pneumonia for a total of 7 days. Azithromycin stopped 08/27/16 - ICU, Infectious disease, Palliative care and nephrology - CT head results as above. - Repeat Blood Cultures negative x2 days - Continue tube feeds - Physical Therapy and Speech eval Leukocytosis, present on admisson, active Patient has new leukocytosis and is febrile on 08/28/16 after previous resolution. DDx includes cellulitus, aspiration pneumonia, alcoholic hepatitis - Monitor CBC - Infectious disease is following recommendations to continue zosyn for total of 7-8 days. Metabolic Acidosis, present on admission, active Likely secondary to lactic acidosis and uremia - Monitor CMP Rhabdomyolysis, present on admission, [place] [id number]. Likely secondary to being in one position for 9 hours. Patient has large erythematous regions at pressure points of sacrum and upper thorax with open wound at sacrum. - IV fluids stopped 08/27/16 - Monitor CK - Wound care consult - Nephrology consulted and is following. Acute Kidney Injury, present on admission, active Cr on admission at 3.52 and increasing after admission. Unknown history of kidney injury. - IV fluids stopped 08/27/16 - Nephrology (Dr. Haynes) currently following case. Hemodialysis done 08/25/16, and 08/27/16. - Continue to monitor Hyperkalemia, present on admission (resolved) - Continue to monitor Elevated Liver Function Tests, present on admission, active Likely due to chronic alcohol use - Currently trending down - Continue to monitor Alcohol dependency -Patient currently sedated no need to institute CIWA protocol at this time Drug dependency -Patient is a known user of cocaine and ice -Per family, last known use is around 5 months ago. DVT prophylaxis: Heparin sub Q GI prophylaxis: No longer indicated after extubation GI Prophylaxis: Not indicated (Patient extubated) VTE Mechanical Devices: Intermittant Pneumatic CD Resuscitation Status: CPR: Attempt Resuscitation Attending Statement The patient was seen and examined together with Dr. Rodriguez on 08/28/2016 and I agree with the history, exam and plan as outlined in the note above. . Enrique Rodriguez 20, 2017 06:19 Betito Arias MD Aug 30, 2016 17:50
--- NOTE | 2016-08-28 12:06 | PROG NOTE ---
[address] [address] PROGRESS NOTE PATIENT: SANDY SOSA : 1975 MR#: [id number] ADMIT: 08/23/2016 JOB ID: [id number] DATE: 08/28/2016 PULMONARY/CRITICAL CARE PROGRESS NOTE: The patient is a 41-year-old man with polysubstance abuse, alcohol and cocaine, admitted with aspiration pneumonia and hypoxic respiratory failure. The patient was seen and evaluated with the resident physician Dr. Chino Ybarra. Please refer to his separate detailed note for additional information. INTERVAL HISTORY: On exam this morning he was once again following commands and doing very well on a spontaneous breathing trial. REVIEW OF SYSTEMS: Could not be obtained since he is intubated. PHYSICAL EXAMINATION: Vital signs reviewed. Notable for T-max of 38.6 in the last 24 hours. Current temperature is also elevated at 38.3. He is on minimal vent settings with FiO2 of 30%. General: Alert, following commands. Chest: Clear to auscultation. LABORATORIES: Reviewed. Creatinine remains elevated. Procalcitonin is down to 2.2 from 3.95 yesterday. Cultures: No new growth on blood, sputum. IMAGING: Chest x-ray reviewed. Clear pulmonary parenchyma. ET tube in appropriate, if somewhat high, position. ASSESSMENT: 1. Acute hypoxic respiratory failure. Intubated August 23, 2016. 2. Acute encephalopathy-improved. 3. Polysubstance abuse including cocaine and alcohol. 4. Alcohol intoxication-resolved. 5. Acute renal failure with rhabdomyolysis-on daily dialysis. 6. Aspiration pneumonia. RECOMMENDATIONS: Neurologic status has clearly improved, as has his respiratory status, and he is doing very well on a spontaneous breathing trial this morning. We went ahead and extubated him and he appears stable. He is still getting daily dialysis. Yesterday he put out 500 cc of urine with high-dose IV Lasix. I am hoping this is a good sign that he has a good chance at renal recovery. He is still on Zosyn and azithromycin for aspiration pneumonia. I suspect we can stop these pretty soon. Today is day six. Azithromycin has already been stopped and the Zosyn probably can be stopped after one more day. He is on appropriate DVT prophylaxis and will discontinue GI prophylaxis. He continues to have daily fevers. I am not sure what to make of that in the setting of a decreasing procalcitonin and no other signs of sepsis. I considered drug fever due to Zosyn as a potential possibility but we will reassess tomorrow. Depending on how he does today, we will check back, but if his respiratory status continues to improve/stabilize pulmonary service may sign off.
--- NOTE | 2016-08-28 12:20 | PCM.PNNEPH ---
Subjective Date of Service Aug 28, 2016 Subjective Extubated. Follow commands. Seen during HD. UOP slightly increased after 100 mg of IV lasix given. Exam Vital Signs Vital Sign - Last Date Time Temp Pulse Resp B/P Pulse Ox O2 Delivery O2 Flow Rate FiO2 08/28/16 11:57 37.7 78 16 147/85 96 Nasal Cannula 4.00 08/28/16 08:30 30 Intake and Output 08/27/16 08/27/16 08/28/16 Cumulative From/Thru 15:00 23:00 07:00 08/23/16 05:20 - 08/28/16 06:16 Intake Total 1128 ml 1308 ml 21690 ml Output Total 1725 ml 520 ml 6340 ml Balance -597 ml 788 ml 83541 ml Intake IV Total 602 ml 599 ml 84565 ml Tube Feeding 446 ml 589 ml 1231 ml Tube Irrigant 80 ml 120 ml 560 ml Output Urine Total 225 ml 450 ml 2295 ml Stool Total 200 ml 70 ml 275 ml Gastric Drainage Total 1070 ml Ultrafiltrate 1300 ml 2700 ml # Bowel Movements 11 Exam GENERAL: Extubated, follow commands. HEENT: Head is normocephalic and atraumatic. NECK: Supple, no elevation of JVD, No carotid bruits. No lymphadenopathy or thyromegaly. LUNGS: Clear to auscultation, equal breath sounds bilaterally, no wheezing, no rhonchi no rales. HEART: Normal S1/S2, Regular rate and rhythm, no murmurs, rubs or gallops. 2+ pules throughout. ABDOMEN: Soft, nondistended. nontender. No hepatosplenomegaly was noted. EXTREMITIES: Without any cyanosis, clubbing, rash, lesions or edema. right femoral HD cath in place. Lab and Diagnostics Result Diagram: 08/28/16 0340 08/28/16 0340 Microbiology Blood cultures pending MRSA swab pending X-Rays, CTs and MRIs 08/23/16 PROCEDURE: CT BRAIN WITHOUT CONTRAST ([id number]) IMPRESSION: No acute disease. 08/23/16 PROCEDURE: X-RAY CHEST ONE VIEW, PORTABLE ([id number]) IMPRESSION: Endotracheal tube appropriate in position. No focal infiltrate or abnormality is seen in the lungs. Additional Diagnostics ABG DateTimeAnalyzed 10:20:00 -_ pH ____7.354 - 7.350 7.450 pCO2 ___31.5__ -mmHg 35.0 45.0 pO2 160 -mmHg 69.0 116 HCO3- ___17.1__ -mmol/L 22.0 26.0 ABE ___-6.9__ -mmol/L -2.0 2.0 tHb ___14.4__ -g/dL O2Hb ___98.1__ -% COHb ____0.6__ -% MetHb ____0.1__ -% sO2 ___98.8__ -% 25.0 FIO2 ___45.0__ -% PRVC 20 - PEEP ____8.0__ -cmH2O Vt __550.0__ -L Drawn By gj - Date/Time Notified____ 10:36:00 -_ Spontaneous_RR ___20.0__ -b/min Oxygen Device 1 VENTILATOR - Notified By gj - Notified Whom ____HUYNH - B 760 -mmHg tO2 ___20.1__ -Vol% Jeff test _Positive - Plan Impression 1. Acute kidney injury secondary to rhabdomyolysis. Requiring HD. First treatment on 08/25. 4 hr, UF 1L, DFR 600, BFR 400 Revalcear, 3K, 35HCO3, right femoral cath. 2. Rhabdomyolysis. 3. Acute hypoxic respiratory failure. 4. Resolved hyperkalemia 5. Acute transaminitis. 6. Polysubstance abuse. Plan: Next HD in am. IV lasix 100 mg x 1. Continue to monitor kidney function and urine output on a daily basis. Nephrotoxins, and adjust medication according to estimated GFR. Alejandro Tapia MD Aug 28, 2016 12:20
--- NOTE | 2016-08-28 13:08 | NUR ---
NUTRITION FOLLOW UP: ASSESS: 41 YO M admitted to CCU after pt found unresponsive. Pt with aspiration pneumonia and rhabdomyolysis. Pt was able to be extubated this am. Pt was tolerating TF at goal, TF now off. ST eval pending. Pt continues to need dialysis. PMHx: No medical history with the exception of ETOH abuse. DIET: NPO. LABS: Reviewed. Bun 54, doll surgeon 6.49, glu 127, Ca 7.1, AST 190, ALT 151, Alb 2.4 MEDICATIONS: Reviewed. Fentanyl, Propofol off GI: BMx4 08/26 SKIN: wound care pending. Per nursing notes, pt has stg 2 PU on buttock, heel and scapula NUTRITION SUPPORT:(OFF) Nepro currently running at 65ml/hr ANTHROPOMETRICS: Current Wt: 105.6kg, BMI: 34.4kg/m2, Admit wt: 95.1 kg. IBW: 72.7kg ESTIMATED NEEDS (Dialysis, wounds, BMI) Calories: 2320-2640kcal/day (22-25kcal/kg) Protein: 110-130 g protein (1.5-1.8 g/kg BW IBW) NUTRITION DIAGNOSIS: 1) Inadequate oral intake related to inability to consume sufficient energy, as evidenced by NPO/vent status.---PERSISTS. INTERVENTION: 1) Advance diet per ST. Will monitor NPO status. 2) Will add Nepro on L tray once diet advanced per ST MONITOR/EVALUATE: NPO, ST, wt, labs, POC, GI/nutrition status. Follow per high nutrition risk guidelines.
--- NOTE | 2016-08-28 13:09 | NUR ---
Dialysis note: 4 hours tx 1000 ml net UF Right femoral catheter, dsg changed, no s/s of infection noted Pls see DTR for VS details Qb 350 w/ cath limbs reversed A-V V-A due to poor cath function Heparin prime given O2 @ 3L via NC on, sat in the 90's Tolerated tx, slept at intervals Catheter flushed, heparin dwelled and secured Stable condition at end of tx Report given to Trista BIRCH
--- NOTE | 2016-08-28 14:33 | NUR ---
Patient seen by [facility] RN for eval of sacral and thoracic spine (at proximal scapular plane) wounds. Via coldfusion, family stated that wounds did not exist prior to hospitalization and that they noticed wounds as blisters that have opened and drained. Per WOCN guidelines, blisters will be staged as Stage 2 pressure ulcers. Sacral wound on R buttock 5 cm L x 8 cm W x <0.1 cm D and L buttock wound 1 cm L x 2 cm W x <0.1 cm D. Both wound beds draining copious sanguinous fluid; edges poorly adhered, beginning to peel, periwound appears as extending deep tissue injury 4 cm laterally. Thoracic spine at proximal scapular plane wound measures 9 cm L x 24 cm W x 0.1 cm D. Lateral areas are beefy red and bleed slightly when blotted. Medial area appears as mushy, pale pink tissue, likely area where blister did not deroof and skin remains adhered. Periwound is WNL of patient's body temp and color. R posterior elbow wound is resolving Stage 2 pressure ulcer of unopened blister that is now flattened, 4 cm L x 2 cm W and no measurable depth. R lateral heel DTI measures 3 cm L x 4 cm W, dark maroon, normal temp, slightly boggy. L lateral heel DTI measures 4 cm L x 5 cm W, dark maroon, normal temp, slightly boggy. All open wounds were cleansed with wound cleansing spray, blotted dry, and covered with Adaptic gauze, then covered with Mepliex. Dressing should be changed every other day or PRN soiled or drainage exceeds capacity.
[2016-08-28] MEDS ORDERED: Furosemide 10 mg/mL 10 mL Inj IVPUSH ONE (16:00)
--- NOTE | 2016-08-28 16:13 | NUR ---
Social Work: Multidisciplinary Rounds Pt discussed in am rounds; sw status remains unchanged. CUSTOMER SUCCESS [employer]VOCATE to continue to follow to assess for further d/c needs and to complete CD assessment when pt is appropriate. JEFF Fox
--- NOTE | 2016-08-28 16:59 | NUR ---
Extubation/Mentation/Skin Pt extubated at 0840 by RT with this RN at bedside, per Dr. Solis's orders. No complications with extubation, pt SpO2 mid to high 90s on 4L NC. Pt remains lethargic, follows some commands, able to request water occasionally. Mouth swabs provided, as pt remains too lethargic for formal swallow eval by JOINT CREASER. PT in to see pt, see note. bacteriologist dairy assessed back, buttocks and heels; dressed back and buttocks, see note. Continuous lateral rotation therapy via CCU bed. HD this morning. Pt continues to have liquid green/brown stool per FMS. Minimal UOP via Espinoza; 100mg IV lasix administered at 1600, continue to monitor output. Pt to have MRI-brain this evening. Family at bedside.
--- NOTE | 2016-08-28 19:44 | DRSVH ---
PROCEDURE: MRI BRAIN WITHOUT CONTRAST ([id number]) INDICATIONS: anoxic brain injury TECHNIQUE: Noncontrast axial T1 spin echo, axial T2 fast spin echo, sagittal and axial FLAIR, coronal T2 fast sp in echo, axial gradient echo, axial diffusion and ADC through the brain. COMPARISON: None. FINDINGS: Image quality: Excellent. CSF Spaces: Basal cisterns are patent. No extra-axial fluid collections. Ventricles are normal in size and shape. Brain: No intracranial masses or hemorrhage. Isaacs/white matter interface is normal. Brainstem appe ars normal. Diffusion-weighted images restricted diffusion in the globus pallidi bilaterally as well as the deep white matter of the frontal, parietal and occipital lobes. No chronic ischemic insults. Normal intravascular flow voids are present. Skull and face: Calvarium has normal marrow signal. Orbits appear normal. Sinuses: Sinuses and mastoids are clear. 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 Dictated by: Jacob Mosqueda M.D. on 08/28/2016 at 19:39 Approved by: Jacob Mosqueda M.D. on 08/28/2016 at 19:42
[2016-08-28] MEDS ORDERED: Acetaminophen IV 1,000 MG in IV Premix 1 EACH IV ONE (20:30)
[2016-08-29] VITALS (8 sets, daily range): BP systolic 117–143; BP diastolic 66–78; PULSE 67–84; RESP 16–20; O2SAT 96–97
[2016-08-29] MEDS: Heparin 5,000 Unit/mL Inj SUBQ SCH ×3 (00:38→16:30)
[2016-08-29] MEDS: Chlorhexidine 0.12% 15 mL Oral Solution MT SCH ×3 (00:39→08:40)
[2016-08-29] MEDS: Propofol Inj 1,000,000 MCG in IV Premix 1 EACH IV SCH (00:39)
[2016-08-29 03:46] LABS: APPEARANCE,URINE CLEAR (CLEAR,HAZY); COLOR,URINE YELLOW (YELLOW)
[2016-08-29 03:47] LABS: OCCULT BLOOD,URINE LARGE (NEGATIVE); PH,URINE 7.5 (5.0-8.0); UROBILINOGEN,URINE NORMAL (NORMAL)
[2016-08-29] MEDS: Acetaminophen IV 1,000 MG in IV Premix 1 EACH IV PRN ×2 (04:28→12:06)
[2016-08-29 04:37] LABS: BASOPHILS % (AUTO) 0.9 % (0-3); EOSINOPHILS % (AUTO) 1.5 % (0-5); MONOCYTES % (AUTO) 13.5 % (4-12); Mean Corpuscular Hemoglobin 29.2 pg (27.0-35.0); Mean Corpuscular Volume 88.3 fL (81-100); Platelet Count 149 bil/L (150-400)
[2016-08-29 05:13] LABS: Magnesium 2.2 mg/dL (1.6-2.6); Phosphorus 6.2 mg/dL (2.5-4.9)
--- NOTE | 2016-08-29 06:03 | NUR ---
Fever/Mentation He was mumbling and answering his family's question last night during beginning of shift. Pt noted to be somnolent and awaken during stimuli but does not hold attention for long. Temp max 39.2 and MD aware. Tylenol IV given and ice bag to help cool down pt's temp with some effectiveness noted. Pt at times mumbles and answer question appropriately. 02sat in mid 90s on 2L NC. Wound dressing CDI. Turn q2h. CCU bed MANOJ on rotation therapy. Espinoza patent with noted 1100 cc output tonight.
[2016-08-29] MEDS: Thiamine Inj 200 MG in Dextrose 5% 50 ML IV SCH (10:00)
--- NOTE | 2016-08-29 10:00 | NUR ---
Evaluation completed. Please go to "Notes" then click on "Assessments and Notes" (bottom left corner of screen). Then select appropriate discipline tab on top of screen.
[2016-08-29] MEDS: Piperacillin-Tazo 3.375 Gm Inj 3.375 GM in Dextrose 5% Minibag Plus 50 ML IV SCH (10:04)
--- NOTE | 2016-08-29 11:40 | PROG NOTE ---
[address] [address] PROGRESS NOTE PATIENT: SANDY SOSA : 1975 MR#: [id number] ADMIT: 08/23/2016 JOB ID: [id number] DATE: 08/29/2016 REASON FOR FOLLOW UP: Sustained fevers in a patient status post a significant brain injury due to anoxic brain injury at home. INTERVAL HISTORY: Overnight the patient has continued to be febrile, and in fact his fevers have been increasing. Despite this there have been no other signs of improvement as the patient has somewhat awakened and is able to answer some questions today, though he has a lot of focal cognitive and motor deficits. He this morning is awake enough to answer some questions and tells us he is not having significant headache, nor is he having cough, difficulty breathing, nausea, vomiting, or abdominal pain. He answers most questions with a one or two word reply, however, and is clearly not back to his normal baseline mental status. This case was discussed at the bedside in detail with the ICU team, the renal team, speech therapy, the nursing staff, and the patient's spouse. PHYSICAL EXAMINATION: Reveals a gentleman who is febrile to 39 degrees axillary which has an extraordinarily high fever given that it was taken in the axillary position and in that he is in renal failure and would likely be equivalent to a temperature greater than 40 degrees in a normal person taken by the oral route. His pulse is 82, surprisingly, in conjunction with that high fever suggesting a pulse temperature deficit. His respiratory rate is 16. His blood pressure is 142/78. He is saturating 96% on 2 L. The patient is more awake today than he has been at any point. He is able to more less mumble one or two word answers, but these are often correct and he actually knows where he is and has general awareness of his situation. His head is without trauma. His neck is quite supple this morning. Eyes with some minimal conjunctivitis. Oral cavity unremarkable. The patient's lungs are quite clear anteriorly. Cardiac tones notable for mild tachycardia, without murmur. The patient's abdomen is soft and nontender, without organomegaly. He has a Espinoza catheter but his penis and scrotum appear normal. His urine output has dramatically increased overnight for the first time since admission. He has good urine output. His extremities are notable for the skin breakdown we saw earlier, without overt evidence of infection. He has a PICC line in his right upper extremity and a right femoral groin line, both of which appear uninfected. There is no significant new skin rash. His skin, though, is hot to the touch and it is clear the patient is currently extremely febrile. LABORATORY: Lab studies include white count 13,000, which is slowly creeping up, but the diff is unimpressive except for a mild monocytosis. There is no associated eosinophilia or left shift today. Creatinine is more or less stable over the past two days. It has been 6.9, 6.5, and 6.8, so really no change. This is in spite of ongoing dialysis on a daily basis using the femoral line. His LFTs remain elevated, but they are getting better. His AST is down to 176 from a max of 624. His ALT is down to 151 from a max of 250. His bilirubin remains normal at 0.5. Procalcitonin is coming down in a steady fashion. It started off at 8.5, declined to 4.2, and today 1.4 which is approaching normal when the one takes into account his profound renal impairment. Micro includes 8 negative blood culture bottles, an unimpressive sputum, and a negative MRSA screen. IMAGING: We reviewed on the computer the patient's MRI scan of the brain which is worrisome in that it shows subacute infarcts in the globus pallidus bilaterally as well as the deep white matter in multiple areas of the brain, frontal, temporal, and occipital lobes. His chest x-rays were also reviewed. These continue to show very subtle atelectatic type changes. IMPRESSION: This is a difficult case of a male who was found down at home from an apparent cardiopulmonary arrest triggered by drug use. His intensive care unit course has been marked by prolonged respiratory failure, though he has now been successfully extubated, as well as renal failure requiring dialysis, though he now has a reasonable urine output. His creatinine remains elevated and he has persistent fevers. It is notable that except for one day his entire 6-1/2 day hospital course has been marked by spiking fevers. This raises the possibility of central fever as his fevers started even prior to admission. We had been worried about aspiration pneumonia but he has never really had a lot of rales on exam nor has he had impressive infiltrates. He has been treated with Zosyn with a decline in his procalcitonin to now what approaches normal levels after seven days of therapy, but it is unclear we were ever treating pneumonia as one never really blossomed on exam or radiographically. In addition to concerns about central fevers due to brain injury or possible aspiration pneumonia events, it is certainly possible that the patient's ongoing fevers are due to drug fever, though I think that is unlikely, or ongoing alcoholic hepatitis. Drug withdrawal could also be responsible for these sustained fevers. It is also possible that whatever caused his fevers when he came in is now a 2nd different and nosocomial cause, and those potential etiologies might include C. diff, line infection with bacteremia or fungemia, or a superinfected decubitus type process. Overall I think most likely these fevers are central in origin as they have been present since admission and did not seem to very much, even as his procalcitonin and other parameters of infection seem to be improving. Probably the next most likely would be infection arising from his femoral dialysis catheter as these are prone to infection. Less likely would be an infected PICC, C. diff, fungemia, or the alcoholic hepatitis. RECOMMENDATIONS: 1. I would go ahead and stop the Zosyn this afternoon as we will have completed a seven day course. 2. I would be inclined to keep the patient off antibiotics as he is hemodynamically stable and improving even as he has fevers. 3. Right upper quadrant ultrasound will be checked to evaluate the status of his elevated LFTs and liver. 4. Fungal blood cultures will be obtained through the PICC, as well as through the peripheral skin. 5. This case was discussed in person with the renal service delivery management consultant and she plans to dialyze the patient one more time today and then pull out that femoral line in view of his increasing urine output. The tip of the femoral line will be cultured. 6. Repeat urinalysis with culture if indicated has been ordered. 7. Should the patient deteriorate over the next day or two I would be inclined to initiate broad-spectrum antibiotics, probably with a different class of drugs such as a carbapenem like ertapenem plus an antifungal drug such as micafungin; but, as long as the patient remains stable and only has a fever, I would be inclined to hold off and try and evaluate for causes of fever rather than give additional broad-spectrum therapy. 8. Note that I will be off work for the next nine days, returning to work September 08. I can be reached about this or any other patient via text or cell phone as indicated. Thank you very much.
--- NOTE | 2016-08-29 12:06 | NUR ---
Inpatient Wound Care Thoracic spine dressing (Mepilex foam) was gently peeled back and wound assessed. Drainage has not exceeded dressing and wound appears unchanged from yesterday. Sacral dressing (Mepilex foam) was saturated and beginning to pull away from skin surface. Dressing was changed by this RN, Adaptic gauze and Mepilex foam. Wound appears unchanged from yesterday although amount of bleeding at time of wound care was decreased today.
--- NOTE | 2016-08-29 12:28 | NUR ---
NUTRITION FOLLOW UP: ASSESS: 41 YO M admitted to CCU after pt found unresponsive. Pt with aspiration pneumonia and rhabdomyolysis. Pt was able to be extubated 08/28. He continues to have cognitive deficits. He was made NPO per ST today. Pt has been NPOx1 day. Continues to require Dialysis. PMHx: No medical history with the exception of ETOH abuse. DIET: NPO. LABS: Reviewed. 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 Fentanyl, Propofol off GI: FMS in place SKIN: Wound care following. Stag 2 PU on sacrum and thoracic spine NUTRITION SUPPORT: (OFF) Nepro currently running at 65ml/hr ANTHROPOMETRICS: Current Wt: 100kg, BMI: 32.6kg/m2, Admit wt: 95.1 kg. IBW: 72.7kg ESTIMATED NEEDS (Dialysis, wounds, BMI) Calories: 2320-2640kcal/day (22-25kcal/kg) Protein: 110-130 g protein (1.5-1.8 g/kg BW IBW) NUTRITION DIAGNOSIS: 1) Inadequate oral intake related to inability to consume sufficient energy, as evidenced by NPO/vent status.---PERSISTS. 2) Increased nutrient needs related to ESRD and increased demand for healing as evidence by need for dialysis and pt with stg 2 PU on sacrum and thoracic spine. INTERVENTION: 1) Advance diet per ST. Will monitor NPO status. If pt continues to be NPO per ST due to AMS and lethargy, recommend nutrition support be re-started to aide in wound healing. MONITOR/EVALUATE: NPO, ST, wt, wounds, labs, POC, GI/nutrition status. Follow per high nutrition risk guidelines.
--- NOTE | 2016-08-29 12:47 | PCM.PNNEPH ---
Subjective Date of Service Aug 29, 2016 Subjective S/p extubation. Persistent fevers. Slightly awake today. Able to answer questions. Daily HD since 08/25. Increased UOP. Exam Vital Signs Vital Sign - Last Date Time Temp Pulse Resp B/P Pulse Ox O2 Delivery O2 Flow Rate FiO2 08/29/16 12:22 38.3 78 16 126/69 96 Nasal Cannula 2.00 08/28/16 08:40 30 Intake and Output 08/28/16 08/28/16 08/29/16 Cumulative From/Thru 14:59 22:59 06:59 08/23/16 05:20 - 08/29/16 06:58 Intake Total 638 ml 302 ml 95813 ml Output Total 1000 ml 400 ml 1475 ml 9215 ml Balance -1000 ml 238 ml -1173 ml 51558 ml Intake Oral 0 ml 0 ml IV Total 344 ml 302 ml 36040 ml Tube Feeding 254 ml 1485 ml Tube Irrigant 40 ml 600 ml Output Urine Total 400 ml 1100 ml 3795 ml Stool Total 375 ml 650 ml Gastric Drainage Total 1070 ml Ultrafiltrate 1000 ml 3700 ml # Bowel Movements 11 Exam GENERAL: awake, responsive to verbal stimuli, follow commands. HEENT: Head is normocephalic and atraumatic. NECK: Supple, no elevation of JVD, No carotid bruits. No lymphadenopathy or thyromegaly. LUNGS: Clear to auscultation, equal breath sounds bilaterally, no wheezing, no rhonchi no rales. HEART: Normal S1/S2, Regular rate and rhythm, no murmurs, rubs or gallops. 2+ pules throughout. ABDOMEN: Soft, nondistended. nontender. No hepatosplenomegaly was noted. EXTREMITIES: Without any cyanosis, clubbing, rash, lesions or edema. right femoral HD cath in place. Lab and Diagnostics Result Diagram: 08/29/16 0433 08/29/16 0433 Microbiology Blood cultures pending MRSA swab pending X-Rays, CTs and MRIs 08/23/16 PROCEDURE: CT BRAIN WITHOUT CONTRAST ([id number]) IMPRESSION: No acute disease. 08/23/16 PROCEDURE: X-RAY CHEST ONE VIEW, PORTABLE ([id number]) IMPRESSION: Endotracheal tube appropriate in position. No focal infiltrate or abnormality is seen in the lungs. Additional Diagnostics ABG DateTimeAnalyzed 10:20:00 -_ pH ____7.354 - 7.350 7.450 pCO2 ___31.5__ -mmHg 35.0 45.0 pO2 160 -mmHg 69.0 116 HCO3- ___17.1__ -mmol/L 22.0 26.0 ABE ___-6.9__ -mmol/L -2.0 2.0 tHb ___14.4__ -g/dL O2Hb ___98.1__ -% COHb ____0.6__ -% MetHb ____0.1__ -% sO2 ___98.8__ -% 25.0 FIO2 ___45.0__ -% PRVC 20 - PEEP ____8.0__ -cmH2O Vt __550.0__ -L Drawn By gj - Date/Time Notified____ 10:36:00 -_ Spontaneous_RR ___20.0__ -b/min Oxygen Device 1 VENTILATOR - Notified By gj - Notified Whom ____HUYNH - B 760 -mmHg tO2 ___20.1__ -Vol% Jeff test _Positive - Plan Impression 1. Acute kidney injury secondary to rhabdomyolysis. Requiring HD. First treatment on 08/25. 2. Rhabdomyolysis, improving. 3. Persistent fevers. 4. Acute hypoxic respiratory failure, resolved. 5. Resolved hyperkalemia 6. Acute transaminitis. 7. Polysubstance abuse. Plan: HD again today, remove femoral cath, send tip for culture. IV lasix 100 mg x 1. Continue to monitor kidney function and urine output on a daily basis. Nephrotoxins, and adjust medication according to estimated GFR. Alejandro Tapia MD Aug 29, 2016 12:47
--- NOTE | 2016-08-29 13:26 | PROCED ---
[address] [address] EEG PATIENT: SANDY SOSA : 1975 MR#: [id number] ADMIT: 08/23/2016 JOB ID: [id number] DATE OF SERVICE: 08/25/2016 REQUESTING PHYSICIAN: Chino Ybarra DO. CLINICAL HISTORY: The patient is a 41-year-old gentleman with possible anoxic injury, unresponsive. MEDICATIONS: On propofol per tech. TECHNICAL DESCRIPTION: This digital EEG recording was done using a 25 scalp and ear with two EKG electrodes. It was reviewed in the bipolar and referential montages. Reformatted in the 10/20 [employer] Electrode Placement System. DESCRIPTION: While awake and with eyes closed, there are 6 hertz rhythmic and symmetric waveforms seen over the occipital head region which attenuate with eye opening. There are no focal, lateralizing, or epileptiform abnormalities seen. There are no ongoing electrophysiologic seizures. The patient enters sleep at which time there is slowing of the background rhythm. Propofol was stopped at 1300 without significant change in background rhythm and no electrophysiologic seizures. Restlessness was not associated with any abnormal or epileptiform abnormalities. ACTIVATION: Activation with photic stimulation did not reveal any paroxysmal discharges. EKG/RHYTHM STRIP: Regular rate and rhythm. IMPRESSION: Abnormal electroencephalogram due to slowing. No epileptiform abnormalities seen throughout the recording and no electrophysiologic seizures. Slowed rhythm may be due to propofol. RECOMMENDATION: Recommend stopping propofol and repeating EEG to look for improvement in background rhythm. Severe slowing may also be due to global injury. Clinical correlation advised. Dr. Roni Ybarra notified.
[2016-08-29 13:43] LABS: APPEARANCE,URINE CLEAR (CLEAR,HAZY); COLOR,URINE YELLOW (YELLOW); OCCULT BLOOD,URINE LARGE (NEGATIVE); PH,URINE 6.5 (5.0-8.0); UROBILINOGEN,URINE NORMAL (NORMAL)
--- NOTE | 2016-08-29 15:07 | NUR ---
Social Work: Continued Discharge Planning/Multidisciplinary Rounds D: Pt discussed in am rounds. Pt is very complex at this time with multiple providers following care. Neprology continues with dialysis treatment; pt may require halfway dialysis. Pt made NPO today by ST due to continued cognitive deficits. PT continues to work with pt; pt requiring Max Assist for all mobility, current recommendation is for SNF vs Inpatient Rehab. RECREATIONAL SPORTS DIRECTOR reviewed RCA and Process Account Notes; pt qualifies for [place] [employer] Medicaid (AEM). Chronic dialysis may be covered under AEM based on information RECREATIONAL SPORTS DIRECTOR acquired from the [facility] about AEM. RECREATIONAL SPORTS DIRECTOR left a message for social workers, Adelina and Sondra at [facility] to confirm this. 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 Pt will likely rehab at [facility] unless family has the financial resources to pay privately at skilled rehab. RECREATIONAL SPORTS DIRECTOR will explore a possible Swing Bed transfer at [facility] however it is not known if pt's AEM is a barrier to this option. A: Pt who will require ongoing rehab before discharge P: Evolving; RECREATIONAL SPORTS DIRECTOR to follow up with family about dcp and explore PP options at SNF along with possible transfer to [facility] Swing Bed. JEFF Fox
--- NOTE | 2016-08-29 15:11 | NUR ---
Pt arrived to [facility]: Pt arrived to [facility] for dialysis treatment. Pt has eyes shut on arrival. Pt did open eyes when completing pt care. Report obtained from Sara Ferguson RN. Pt will return to [facility] when dialysis completed. Addendum: 08/29/16 at 1809 by SAMANTHA KINGSTON RN Pt completed treatment and may return back to [facility]. Pt continued to have eyes open but did not verbalize any needs during treatment. Report given to Sara Ferguson RN.
--- NOTE | 2016-08-29 15:43 | PROG NOTE ---
[address] [address] PROGRESS NOTE PATIENT: SANDY SOSA : 1975 MR#: [id number] ADMIT: 08/23/2016 JOB ID: [id number] PULMONARY CRITICAL CARE PROGRESS NOTE: DATE: 08/29/2016 SUBJECTIVE: This patient is a 41-year-old man with polysubstance abuse including alcohol and cocaine, admitted with aspiration pneumonia, rhabdomyolysis with renal failure and acute hypoxic respiratory failure. INTERVAL HISTORY: He was extubated yesterday morning and has been doing well from a respiratory standpoint overnight. He is on minimal oxygen. Continues to have high fevers over 39. REVIEW OF SYSTEMS: Could not be obtained since patient is lethargic and somnolent when I saw him. PHYSICAL EXAMINATION: Vital signs reviewed. T-max of 39.4, pulse 78, respirations 16, BP 129/69, sats 96% on 2 L nasal cannula. General: A young man lying in bed, eyes closed, not answering my questions or opening eyes, but family indicates that he was conversant earlier. Chest clear to auscultation. LABORATORY DATA: Labs reviewed including CBC and chemistries. Creatinine continues to be very high. CK is down to 4900. INTAKE AND OUTPUT: His urine output was about 1100 cc so far today since midnight. ASSESSMENT AND RECOMMENDATIONS: 1. Acute hypoxic respiratory failure - intubated on August 23 - extubated on August 28. 2. Acute encephalopathy due to watershed infarcts. 3. Persistent fevers - possibly due to brain infarcts. 4. Acute renal failure due to rhabdomyolysis on daily dialysis. 5. Aspiration pneumonia. 6. Polysubstance abuse including cocaine and alcohol. MRI of brain yesterday showed multiple bilateral areas of watershed infarcts that appear acute to subacute. It is possible that his encephalopathy and fever can be explained by these findings. In regards to respiratory status, he is quite stable, on minimal oxygen via nasal cannula. He is getting dialysis now but has made so much urine that I was told the plan is to discontinue dialysis after today. They are also planning to remove the dialysis catheter just in case this is the source of fevers. I had an impromptu conference with the family with an spanish interpreter/translator present at the bedside. His , sister, mother, as well as son were all present. I reviewed the MRI imaging with them, showed them the pictures. I explained to them that he has multiple areas of infarcts. They had questions. as expected about chances of recovery, etc. Unfortunately the best I could tell them that it is likely he may not be back to his previous baseline but I would recommend we ask Neurology to speak to them further and answer their questions. Regardless, all we can do for him now is to continue physical therapy, speech therapy, etc., and help him get stronger and the family seemed to understand this. They were understandably tearful and saddened by this information however. CRITICAL CARE TIME: 50 minutes. Pulmonary service is available over the weekend, so please contact me for any concerns, but I may not see him over the weekend as long as he remains stable.
--- NOTE | 2016-08-29 16:43 | PCM.PNMED ---
Subjective Date of Service Aug 29, 2016 Subjective Overnight Events: None Hospital Day 7, Patient is resting in bed. He is somewhat alert and responsive to questions. He is able to move his fingers and toes, but his ability to do so seems to be less than yesterday. He is not tracking as well as prior days as well. He is currently on 2L oxygen and breathing well. Exam Vital Signs Vital Sign - Last Date Time Temp Pulse Resp B/P Pulse Ox O2 Delivery O2 Flow Rate FiO2 08/29/16 05:15 38.2 75 127/66 08/29/16 05:15 Supplement Oxygen 08/29/16 04:14 20 97 2.00 08/28/16 08:40 30 Intake and Output 08/28/16 08/28/16 08/29/16 Cumulative From/Thru 15:00 23:00 07:00 08/23/16 05:20 - 08/29/16 05:22 Intake Total 638 ml 302 ml 50266 ml Output Total 1000 ml 400 ml 7740 ml Balance -1000 ml 238 ml 302 ml 25261 ml Intake IV Total 344 ml 302 ml 48857 ml Tube Feeding 254 ml 1485 ml Tube Irrigant 40 ml 600 ml Output Urine Total 400 ml 2695 ml Stool Total 275 ml Gastric Drainage Total 1070 ml Ultrafiltrate 1000 ml 3700 ml # Bowel Movements 11 Exam General: Patient now extebuated 08/28/16, no sign of distress HEENT: Normocephalic, atraumatic. Pupils reactive to light, he is not tracking. Cardiovascular: Regular rate and rhythm with no murmurs, rubs, or gallops appreciated Pulmonary: Clear to auscultation anteriorly with equal air sounds bilaterally Abdomen: Bowel tones present. Soft, nondistended. Extremities: No clubbing, cyanosis, edema, or lymphadenopathy appreciated. Skin: Large erythemetous region around sacrum with open wound about 3 inches in diameter. Similar looking presentation at upper thorax with some ruptured blisters. Neurological: Weakly responsive to questions, able to move toes and fingers, but seems to be decreased from 08/28/16 examination. Lab and Diagnostics Item Value Date Time Creatinine 6.49 mg/dL *H 08/28/16 0340 Creatinine 6.79 mg/dL *H 08/29/16 0433 Total Creatine Kinase 7137 U/L H 08/28/16 0340 Total Creatine Kinase 4971 U/L H 08/29/16 0433 Aspartate Amino Transf (AST/SGOT) 190 U/L H 08/28/16 0340 Alanine Aminotransferase (ALT/SGPT) 151 U/L H 08/28/16 0340 Alanine Aminotransferase (ALT/SGPT) 151 U/L H 08/29/16 0433 Aspartate Amino Transf (AST/SGOT) 176 U/L H 08/29/16 0433 Procalcitonin 2.20 ng/mL H 08/28/16 0340 Procalcitonin 1.41 ng/mL H 08/29/16 0433 Result Diagram: 08/29/16 0433 08/29/16 0433 Microbiology Blood cultures pending MRSA swab pending X-Rays, CTs and MRIs 08/23/16 PROCEDURE: CT BRAIN WITHOUT CONTRAST ([id number]) IMPRESSION: No acute disease. 08/23/16 PROCEDURE: X-RAY CHEST ONE VIEW, PORTABLE ([id number]) IMPRESSION: Endotracheal tube appropriate in position. No focal infiltrate or abnormality is seen in the lungs. Additional Diagnostics ABG DateTimeAnalyzed 10:20:00 -_ pH ____7.354 - 7.350 7.450 pCO2 ___31.5__ -mmHg 35.0 45.0 pO2 160 -mmHg 69.0 116 HCO3- ___17.1__ -mmol/L 22.0 26.0 ABE ___-6.9__ -mmol/L -2.0 2.0 tHb ___14.4__ -g/dL O2Hb ___98.1__ -% COHb ____0.6__ -% MetHb ____0.1__ -% sO2 ___98.8__ -% 25.0 FIO2 ___45.0__ -% PRVC 20 - PEEP ____8.0__ -cmH2O Vt __550.0__ -L Drawn By gj - Date/Time Notified____ 10:36:00 -_ Spontaneous_RR ___20.0__ -b/min Oxygen Device 1 VENTILATOR - Notified By gj - Notified Whom ____HUYNH - B 760 -mmHg tO2 ___20.1__ -Vol% Jeff test _Positive - Assessment & Plan Santiago Ann is a 41 year old male with no known past medical history who came in unresponsive after being found with vomit around him, sedated and intubated for acute hypoxemic respiratory failure secondary to aspiration for 5 days and extubated on hospital day 6 following successful spontaneous breathing trial. Anoxic Brain Injury, present on admission, active Secondary to asipiration, intoxication, and cerebrovascular infarct. Patient has had large volume of vomit suctioned out in the ED. EEG shows evidence of slowing but no other abnormalities to suggest that the patient is having clinical seizures causing his symptoms. There is significant metabolic dysfunction. - Intubated on 08/23/16, Extubated on 08/28/16 - Zosyn stopped per ID recommendation. No longer on antibiotics. Will start broad spectrum antibiotics if fevers persist per ID recommendation. - ICU, Infectious disease, Palliative care and nephrology - Reconsult neurology s/p MRI 08/28/16 - CT head results as above. - Repeat Blood Cultures negative x3 days - Continue tube feeds - Physical Therapy, Occupational therapy and Speech eval - Will discuss with palliative team plans for another family meeting. - Neurology reconsulted and will see patient 08/30/16 Leukocytosis, present on admisson, active Patient has new leukocytosis and is febrile on 08/28/16 after previous resolution. DDx includes cellulitus, aspiration pneumonia, alcoholic hepatitis - Monitor CBC - Antibiotics stopped as patient has had 7 days of zosyn. - May consider broad spectrum antibiotics if fevers and leukocytosis persists, per ID recommendation Metabolic Acidosis, present on admission, active Likely secondary to lactic acidosis and uremia - Monitor CMP Rhabdomyolysis, present on admission, [place] [address]. Likely secondary to being in one position for 9 hours. Patient has large erythematous regions at pressure points of sacrum and upper thorax with open wound at sacrum. - IV fluids stopped 08/27/16 - Monitor CK - Wound care consult - Nephrology consulted and is following. Acute Kidney Injury, present on admission, active Cr on admission at 3.52 and increasing after admission. Unknown history of kidney injury. - IV fluids stopped 08/27/16 - Nephrology (Dr. Haynes) currently following case. Hemodialysis done daily since 08/25/16. - Continue to monitor Hyperkalemia, present on admission (resolved) - Continue to monitor Elevated Liver Function Tests, present on admission, active Likely due to chronic alcohol use - Currently trending down - Continue to monitor Alcohol dependence -Patient currently sedated no need to institute CIWA protocol at this time Drug dependence -Patient is a known user of cocaine and ice -Per family, last known use is around 5 months ago. DVT prophylaxis: Heparin sub Q GI prophylaxis: No longer indicated after extubation GI Prophylaxis: Not indicated (Patient extubated) VTE Mechanical Devices: Intermittant Pneumatic CD Resuscitation Status: CPR: Attempt Resuscitation Attending Statement The patient was seen and examined together with Dr. Rodriguez on 08/29/2016 and I agree with the history, exam and plan as outlined in the note above. . Enrique Rodriguez DO Aug 29, 2016 06:37 Betito Arias MD Aug 30, 2016 17:56
--- NOTE | 2016-08-29 18:15 | NUR ---
Dialysis note: 3 1/2 hours tx 1000 ml net UF Right femoral catheter, dsg dry and intact Pls see DTR for VS details Qb 300-400 w/ freq high arterial pressure alarms due to poor cath function Heparin prime given O2 @ 2L via NC on Tolerated tx, slept at intervals Catheter flushed, heparin dwelled and secured Stable condition at end of tx Report given to Mendy BIRCH
--- NOTE | 2016-08-29 19:36 | DRSVH ---
PROCEDURE: US ABDOMEN ([id number]) INDICATIONS: fever and hepatitis TECHNIQUE: Real-time scanning was performed of the abdominal and retroperitoneal organs, with image documentatio n. COMPARISON: [facility], US, US RENAL, 08/24/2016, 18:01. FINDINGS: Liver: Liver is at the upper limits of normal for size. Liver has a diffusely increased echotexture which typically represents fatty infiltration; however, finding is nonspecific and other etiologies i ncluding hepatic cirrhosis can have a similar appearance. Please correlate with clinical and laborato ry findings. Gallbladder: Large gallstones are noted in the gallbladder wall. There is mild gallbladder wall thi ckening to 3.4 mm. No pericholecystic fluid. Sonographic Pittman's sign cannot be evaluated due to u nconscious state of the patient. Biliary ducts: Intrahepatic bile ducts are non-dilated. Extrahepatic bile duct caliber measures 3.0 mm. Normal is 6-7 mm or less in diameter, or 10 mm or less post-cholecystectomy. Pancreas: Visualized portions of the pancreas are sonographically normal. Spleen: Spleen is normal in size and homogeneous in echotexture. Kidneys: Kidneys are normal in size and echotexture. Right kidney measures 12.4 cm long; left kidne y measures 12.6 cm long. No hydronephrosis or nephrolithiasis. No solid masses. Right kidney is sli ghtly echogenic. Aorta: Visualized aorta is normal in caliber at less than 3 cm. Iliacs: Proximal common iliac arteries are normal in caliber at less than 2.5 cm. IVC: Not visualized and cannot be evaluated secondary to patient respiratory motion. Miscellaneous: No free abdominal fluid. IMPRESSION: 1. Cholelithiasis. 2. Mild gallbladder wall thickening. Acute cholecystitis cannot be excluded. 3. Echogenic liver. Finding typically represents fatty infiltration; however, finding is nonspecific and correlation with clinical and laboratory findings is recommended to exclude other etiologies incl uding hepatic cirrhosis. 4. Slightly echogenic right kidney suspicious for developing medical renal disease. Please correlat e with clinical and laboratory data. Dictated by: Swathi Jimenes MD, PhD on 08/29/2016 at 19:31 Approved by: Swathi Jimenes MD, PhD on 08/29/2016 at 19:34
--- NOTE | 2016-08-29 19:44 | NUR ---
O2/Swallow/A&O/Femoral dialysis cath Cardiac: Pt denies CP. no tele Resp: Pt shows no s/s of resp distress, denies SOB. SPo2 97% on 2L NC. Pt trialed on RA when back from dialysis. SPO2 95% on RA. Pt placed on 1L NC, NOC nurse will continue to assess and titrate down if appropriate. GI/: Pt denies n/v. FMS patent and draining dark green/brown liquid stool. Espinoza draining to gravity. Discussed IV fluids with physician concerning pt's NPO status, fluids held overnight per Dr order. Pt given an ice chip at end of shift after giving oral care. pt was educated about aspiration and the risk of pneumonia. Pt reported it felt as if water was going into his lungs a bit. Pt has very weak cough. Neuro: A&Ox1 self only this AM, pt thinks it is 1997, he is in his 30s and is in [place]. A&Ox 2 this afternoon. knows he is near [facility], but not that he is in the hospital. Pt is able to sense touch to forearms, but not able to squeeze either hand when asked, this afternoon pt able to weakly squeeze hands. Pt is able to follow some other comands. Pt having very difficult time tracking finger passed in front of his eyes. Speech is very mumbled. Pt had fever of 39.0 this AM, ice packs applied, tylenol given when PRN available. Temp down to 38.3. Temp only slightly elevated upon returning from dialysis. Upon return to his room from dialysis it was discovered with the [facility] [place] [place] nurse that the femoral cath had not been DC'd. Dialysis nurse called and reported it needed to be done by physician. R2 called who suggested I call IV therapy. Discussed DC of temp femoral cath with IV therapy who agreed that they could do it if time allowed. NOC nurse informed of situation and that cath needs to be dc'd with tip sent to [facility].
[2016-08-29] MEDS: 0.9% Sodium Chloride 1,000 ML IV SCH (20:05)
--- NOTE | 2016-08-29 23:06 | NUR ---
NEURO Pt unable to squeeze hands when asked. Able to wiggle toes after multiple requests. Pt only able to answer one question appropriately during assessment, which was, "no pain" when asked if he was in any pain. VSS, afebrile, no other issues noted at this time.
[2016-08-30] MEDS: Heparin 5,000 Unit/mL Inj SUBQ SCH ×4 (00:07→23:35)
[2016-08-30 03:03] VITALS: BP 138/70; PULSE 77; RESP 16; O2SAT 95
[2016-08-30 03:53] LABS: BASOPHILS % (AUTO) 0.5 % (0-3); EOSINOPHILS % (AUTO) 2.2 % (0-5); MONOCYTES % (AUTO) 11.7 % (4-12); Mean Corpuscular Hemoglobin 28.8 pg (27.0-35.0); Mean Corpuscular Volume 89.5 fL (81-100); NEUTROPHILS % (AUTO) 65.8 % (40-74); Platelet Count 172 bil/L (150-400)
[2016-08-30 07:46] VITALS: BP 135/70; PULSE 84; RESP 28; O2SAT 93
[2016-08-30] MEDS ORDERED: Acetaminophen IV 1,000 MG in IV Premix 1 EACH IV PRN (08:05)
[2016-08-30] MEDS: Thiamine Inj 200 MG in Dextrose 5% 50 ML IV SCH (08:12)
[2016-08-30] MEDS ORDERED: Furosemide 10 mg/mL 10 mL Inj IVPUSH ONE (10:00)
[2016-08-30] MEDS ORDERED: Furosemide Inj 80 MG in 0.9% Sodium Chloride 50 ML IVPUSH ONE (10:25)
--- NOTE | 2016-08-30 10:39 | NUR ---
NUTRITION FOLLOW UP: ASSESS: 41 YO male admitted to CCU after pt found unresponsive. Pt with aspiration pneumonia and rhabdomyolysis. Pt was able to be extubated 08/28. He continues to have acute encephalopathy due to watershed infarcts. He continues NPO per ST x 2 D. Fevers continue to be persistent. He required dialysis for JUWAN; however, he made significant amount of urine yesterday, with plan to discontinue dialysis. ID also requested that the dialysis catheter be removed as possible source of fevers; however, nephrology stating that catheter removal needed to be accomplished by provider. Urine out has decreased significantly today, with likely reconsult to nephrology. Neurology consult is plan for today, as well as restart enteral feeding. PMHx: No medical history with the exception of ETOH abuse. DIET: NPO. LABS: Reviewed. BUN 67, Cr 6.11, Glu 112, AST 133, ALT 148, TCK 3008, Alb 2.8, Procalcitonin 1.03. MEDICATIONS: Reviewed. GI: FMS in place: 1075 mL output (08/29) dark green / brown liquid. SKIN: Wound care following. Stag 2 PU on sacrum and thoracic spine, unchanged, per [employer]. NUTRITION SUPPORT: (OFF) ANTHROPOMETRICS: Current Wt: 100.8 kg, BMI: 32.0 kg/m2, Admit wt: 95.1 kg. IBW: 72.7 kg ESTIMATED NEEDS (Dialysis, wounds, BMI) Calories: 2320-2640kcal/day (22-25kcal/kg) Protein: 110-130 g protein (1.5-1.8 g/kg BW IBW) NUTRITION DIAGNOSIS: 1) Inadequate oral intake related to inability to consume sufficient energy, as evidenced by NPO - PERSISTS. 2) Increased nutrient needs related to ESRD and increased demand for healing as evidence by need for dialysis and pt with stg 2 PU on sacrum and thoracic spine - PERSISTS. INTERVENTION: 1) Will continue to monitor NPO status per ST order. 2) Will restart enteral feeding, per provider authorization, as follows: restart Nepro at 30 mL/hr. Once tolerance established, recommend advance 10 ml every 4 hr to goal rate 65ml/hr to provide 2574 kcal and 115 g pro (100% estimated needs). MONITOR/EVALUATE: NPO status, enteral feeding start / advance / tolerance, wt, wounds, labs, POC, GI/nutrition status. Follow per high nutrition risk guidelines.
[2016-08-30] MEDS: 0.9% Sodium Chloride 1,000 ML IV SCH (11:15)
[2016-08-30 14:02] VITALS: BP 134/83; PULSE 68
--- NOTE | 2016-08-30 14:36 | NUR ---
Pt arrived to [facility]: Pt arrived to [facility] for dialysis treatment. Pt appears stable at time of transfer. Report obtained from Sara Ferguson RN. Pt will return to [facility] when dialysis completed. Addendum: 08/30/16 at 1727 by SAMANTHA KINGSTON RN Pt completed treatment and may return back to [facility]. Pt continued to have eyes open but did not verbalize any needs during treatment. Report given to Sara Ferguson RN. Dialysis nurse indicated that resident MD will pull dialysis cath on return to [facility].
--- NOTE | 2016-08-30 14:37 | PCM.PNNEPH ---
Subjective Date of Service Aug 30, 2016 Subjective Daily HD since 08/25. Seen during HD today. Tmax 39.4. UOP increased. Exam Vital Signs Vital Sign - Last Date Time Temp Pulse Resp B/P Pulse Ox O2 Delivery O2 Flow Rate FiO2 08/30/16 11:37 37.0 08/30/16 08:28 Supplement Oxygen 08/30/16 07:46 84 28 135/70 93 1.00 08/28/16 08:40 30 Intake and Output 08/29/16 08/29/16 08/30/16 Cumulative From/Thru 15:00 23:00 07:00 08/23/16 05:20 - 08/30/16 04:45 Intake Total 500 ml 10 ml 72321 ml Output Total 1000 ml 1400 ml 350 ml 91916 ml Balance -1000 ml -900 ml -340 ml 8525 ml Intake Oral 10 ml 10 ml IV Total 500 ml 0 ml 37333 ml Tube Feeding 1485 ml Tube Irrigant 600 ml Output Urine Total 700 ml 350 ml 4845 ml Stool Total 700 ml 1350 ml Gastric Drainage Total 1070 ml Ultrafiltrate 1000 ml 4700 ml # Bowel Movements 11 Exam GENERAL: awake, responsive to verbal stimuli, follow commands. HEENT: Head is normocephalic and atraumatic. NECK: Supple, no elevation of JVD, No carotid bruits. No lymphadenopathy or thyromegaly. LUNGS: Clear to auscultation, equal breath sounds bilaterally, no wheezing, no rhonchi no rales. HEART: Normal S1/S2, Regular rate and rhythm, no murmurs, rubs or gallops. 2+ pules throughout. ABDOMEN: Soft, nondistended. nontender. No hepatosplenomegaly was noted. EXTREMITIES: Without any cyanosis, clubbing, rash, lesions or edema. right femoral HD cath in place. Lab and Diagnostics Result Diagram: 08/30/1631408/30/16 031 Microbiology Blood cultures pending MRSA swab pending X-Rays, CTs and MRIs 08/23/16 PROCEDURE: CT BRAIN WITHOUT CONTRAST ([id number]) IMPRESSION: No acute disease. 08/23/16 PROCEDURE: X-RAY CHEST ONE VIEW, PORTABLE ([id number]) IMPRESSION: Endotracheal tube appropriate in position. No focal infiltrate or abnormality is seen in the lungs. Additional Diagnostics ABG DateTimeAnalyzed 10:20:00 -_ pH ____7.354 - 7.350 7.450 pCO2 ___31.5__ -mmHg 35.0 45.0 pO2 160 -mmHg 69.0 116 HCO3- ___17.1__ -mmol/L 22.0 26.0 ABE ___-6.9__ -mmol/L -2.0 2.0 tHb ___14.4__ -g/dL O2Hb ___98.1__ -% COHb ____0.6__ -% MetHb ____0.1__ -% sO2 ___98.8__ -% 25.0 FIO2 ___45.0__ -% PRVC 20 - PEEP ____8.0__ -cmH2O Vt __550.0__ -L Drawn By gj - Date/Time Notified____ 10:36:00 -_ Spontaneous_RR ___20.0__ -b/min Oxygen Device 1 VENTILATOR - Notified By gj - Notified Whom ____HUYNH - B 760 -mmHg tO2 ___20.1__ -Vol% Jeff test _Positive - Plan Impression 1. Acute kidney injury secondary to rhabdomyolysis. Requiring daily HD. First treatment on 08/25. Responding with IV lasix, UOP ~ 1800 ml. 2. Rhabdomyolysis, improving. 3. Persistent fevers. 4. Acute hypoxic respiratory failure, resolved. 5. Acute transaminitis. 6. Polysubstance abuse. Plan: HD again today, remove femoral cath, send tip for culture. Continue to monitor kidney function and urine output on a daily basis. Nephrotoxins, and adjust medication according to estimated GFR. Alejandro Tapia MD Aug 30, 2016 14:37
--- NOTE | 2016-08-30 17:30 | NUR ---
Dialysis note: 3 hours tx Zero net UF Right femoral catheter, dsg dry and intact Pls see DTR for VS details Qb 350 w/ freq high arterial pressure alarms due to poor cath function Heparin given O2 @ 2L via NC on Tolerated tx, slept at intervals Catheter flushed, heparin dwelled and secured Stable condition at end of tx Report given to Mendy BIRCH
--- NOTE | 2016-08-30 18:56 | NUR ---
A&O/NG/Febrile Cardiac: Pt denies CP. no tele Resp: pt denies SOB, SPo2 94-96% on 2L NC. Pt has weak coarse cough this AM. GI/: Pt denies n/v. FMS patent and draining dark green/brown liquid stool. Espinoza draining to gravity. NG tube placed following dialysis for tube feeds. Dialysis this afternoon, no fluid removed. Resident will pull dialisis Neuro: A&Ox1, unable to wiggle toes and fingers this AM, mummbled and able to answer questions minimally. pt very somnolent this AM. Temp elevated at39.4 this AM. Tylenol given and ice packs placed. Much more alert and responsive in late morning early afternoon after temp under control. temp 37.0-37.3 for the rest of the shift.
--- NOTE | 2016-08-30 19:09 | DRSVH ---
PROCEDURE: X-RAY CHEST ONE VIEW, PORTABLE ([id number]) INDICATIONS: for placement of NG Dobhof tube TECHNIQUE: One view of the chest was acquired. COMPARISON: [facility], CR, XR CHEST 1VW (PORTABLE), 08/27/2016, 5:11. [facility], CR, XR CHEST 1VW (PORTABLE), 08/28/2016, 5:15. FINDINGS: Surgical changes and devices: There is a Dobbhoff feeding catheter with the tip in stomach. A right PICC line is noted with the tip in SVC. Lungs and pleura: Left basilar opacity may be infiltrate or atelectasis. No pleural effusions or pne umothorax. Mediastinum: Mediastinal contours appear normal. Heart size is normal. Bones and chest wall: No suspicious bony lesions. Overlying soft tissues appear unremarkable. IMPRESSION: The feeding catheter tip is in stomach. Dictated by: Lisha Yun M.D. on 08/30/2016 at 19:05 Approved by: Lisha Yun M.D. on 08/30/2016 at 19:07
[2016-08-30 20:17] VITALS: BP 135/77; PULSE 72; RESP 22; O2SAT 98
--- NOTE | 2016-08-30 22:18 | PCM.PNMED ---
Subjective Date of Service Aug 30, 2016 Subjective Overnight Events: None Hospital Day 8, Patient is resting in bed. He is somewhat alert and responsive to questions. He is able to move his fingers and toes, more on the left side than the right. He is currently on 2L oxygen and breathing well. Exam Vital Signs Vital Sign - Last Date Time Temp Pulse Resp B/P Pulse Ox O2 Delivery O2 Flow Rate FiO2 08/30/16 03:03 37.6 77 16 138/70 95 Nasal Cannula 1.00 08/28/16 08:40 30 Intake and Output 08/29/16 08/29/16 08/30/16 Cumulative From/Thru 15:00 23:00 07:00 08/23/16 05:20 - 08/30/16 04:45 Intake Total 500 ml 10 ml 84476 ml Output Total 1000 ml 1400 ml 350 ml 51141 ml Balance -1000 ml -900 ml -340 ml 8525 ml Intake Oral 10 ml 10 ml IV Total 500 ml 0 ml 41689 ml Tube Feeding 1485 ml Tube Irrigant 600 ml Output Urine Total 700 ml 350 ml 4845 ml Stool Total 700 ml 1350 ml Gastric Drainage Total 1070 ml Ultrafiltrate 1000 ml 4700 ml # Bowel Movements 11 Exam General: Patient now extebuated 08/28/16, no sign of distress HEENT: Normocephalic, atraumatic. Pupils reactive to light, he is not tracking. Cardiovascular: Regular rate and rhythm with no murmurs, rubs, or gallops appreciated Pulmonary: Clear to auscultation anteriorly with equal air sounds bilaterally Abdomen: Bowel tones present. Soft, nondistended. Extremities: No clubbing, cyanosis, edema, or lymphadenopathy appreciated. Skin: Large erythemetous region around sacrum with open wound about 3 inches in diameter. Similar looking presentation at upper thorax with some ruptured blisters. Neurological: Weakly responsive to questions, able to move toes and fingers, but seems to be decreased from 08/28/16 examination. Lab and Diagnostics Item Value Date Time Total Creatine Kinase 3008 U/L H 08/30/165 Total Creatine Kinase 4971 U/L H 08/29/16 0433 Alanine Aminotransferase (ALT/SGPT) 148 U/L H 08/30/16 0315 Alanine Aminotransferase (ALT/SGPT) 151 U/L H 08/29/16 0433 Aspartate Amino Transf (AST/SGOT) 176 U/L H 08/29/16 0433 Aspartate Amino Transf (AST/SGOT) 133 U/L H 08/30/16 0315 Phosphorus Level 6.2 mg/dL H 08/29/16 0433 Creatinine 6.79 mg/dL *H 08/29/16 0433 Creatinine 6.41 mg/dL *H 08/30/16 0315 Procalcitonin 1.41 ng/mL H 08/29/16 0433 Procalcitonin 1.03 ng/mL H 08/30/16 0315 Result Diagram: 08/30/165 08/30/16314 Microbiology Blood cultures pending MRSA swab pending X-Rays, CTs and MRIs 08/23/16 PROCEDURE: CT BRAIN WITHOUT CONTRAST ([id number]) IMPRESSION: No acute disease. 08/23/16 PROCEDURE: X-RAY CHEST ONE VIEW, PORTABLE ([id number]) IMPRESSION: Endotracheal tube appropriate in position. No focal infiltrate or abnormality is seen in the lungs. Additional Diagnostics ABG DateTimeAnalyzed 10:20:00 -_ pH ____7.354 - 7.350 7.450 pCO2 ___31.5__ -mmHg 35.0 45.0 pO2 160 -mmHg 69.0 116 HCO3- ___17.1__ -mmol/L 22.0 26.0 FIO2 ___45.0__ -% PRVC 20 - PEEP ____8.0__ -cmH2O Assessment & Plan Santaigo Ann is a 41 year old male with no known past medical history who came in unresponsive after being found with vomit around him, sedated and intubated for acute hypoxemic respiratory failure secondary to aspiration for 5 days and extubated on hospital day 6 following successful spontaneous breathing trial. Anoxic Brain Injury, present on admission, active Secondary to asipiration and intoxication. Patient has had large volume of vomit suctioned out in the ED. EEG shows evidence of slowing but no other abnormalities to suggest that the patient is having clinical seizures causing his symptoms. There is significant metabolic dysfunction. - Intubated on 08/23/16, Extubated on 08/28/16 - Zosyn stopped per ID recommendation. No longer on antibiotics. Will start broad spectrum antibiotics if fevers persist per ID recommendation. - ICU, Infectious disease, Palliative care and nephrology - Reconsult neurology s/p MRI 08/28/16 - CT and MRI head results as above. - Continue tube feeds - Physical Therapy, Occupational therapy and Speech eval - Will discuss with palliative team plans for another family meeting. - This will require a lot of work for rehab. It's uncertain how much recovery can be had. Leukocytosis, present on admisson, active Patient has new leukocytosis and is febrile on 08/28/16 after previous resolution. DDx includes cellulitus, aspiration pneumonia, alcoholic hepatitis - Monitor CBC - Antibiotics stopped as patient has had 7 days of zosyn. - May consider broad spectrum antibiotics if fevers and leukocytosis persists, per ID recommendation. Metabolic Acidosis, present on admission, active Likely secondary to lactic acidosis and uremia - Monitor CMP Rhabdomyolysis, present on admission, [place] [id number]. Likely secondary to being in one position for 9 hours. Patient has large erythematous regions at pressure points of sacrum and upper thorax with open wound at sacrum. - Monitor CK - Wound care consult - Nephrology consulted and is following. Acute Kidney Injury, present on admission, active Cr on admission at 3.52 and increasing after admission. Unknown history of kidney injury. - IV fluids stopped 08/27/16 - Nephrology (Dr. Haynes) currently following case. Hemodialysis done daily since 7/17/17. - Continue to monitor Hyperkalemia, present on admission, resolved - Continue to monitor Elevated Liver Function Tests, present on admission, improving Likely due to chronic alcohol use - Currently trending down - Continue to monitor Alcohol dependence -Patient currently sedated no need to institute CIWA protocol at this time Drug dependence -Patient is a known user of cocaine and ice -Per family, last known use is around 5 months ago. DVT prophylaxis: Heparin sub Q GI prophylaxis: No longer indicated after extubation GI Prophylaxis: Not indicated (Patient extubated) VTE Mechanical Devices: Intermittant Pneumatic CD Resuscitation Status: CPR: Attempt Resuscitation Attending Statement The patient was seen and examined together with Dr. Rodriguez on 08/30/2016 and I agree with the history, exam and plan as outlined in the note above. . Enrique Rodriguez DO Aug 30, 2016 07:00 Betito Arias MD Aug 31, 2016 07:51
[2016-08-30 23:28] VITALS: BP 120/71; PULSE 64; RESP 28; O2SAT 97
[2016-08-31] MEDS: 0.9% Sodium Chloride 1,000 ML IV SCH ×2 (01:46→19:49)
--- NOTE | 2016-08-31 01:51 | CONS ---
[address] [address] CONSULTATION REPORT PATIENT: SANDY SOSA : 1975 MR#: [id number] ADMIT: 08/23/2016 JOB ID: [id number] CHIEF COMPLAINT: Altered mental status. This is a re-consultation. The patient was seen by my partner, Dr. Viola Jara, earlier during the course of his hospitalization. DATE OF SERVICE: 08/30/2016 Please refer to my partner, Dr. Viola Jara's, extensive consultation note and electroencephalogram note. HISTORY OF PRESENTING ILLNESS: The patient is a 41-year-old man who was noted to be found unconscious by his . As per his medical providers, there is concern for the possibility of Tequila overdose as the etiology of his altered mental status. Emergency Medical Services were called. CPR was performed by his over the telephone until they arrived. He received 2 mg of Narcan which resulted in spontaneous movement of his arms and legs. However, he continued to be unresponsive. His heart rate was initially elevated. He was intubated and transferred to [facility]. He has subsequently been extubated and, today I saw him while he was being dialyzed. He did appear drowsy. However, occasionally would awaken and was nonverbal and did not follow complex commands. He had been intubated on August 23, 2016. He developed acute tubular necrosis secondary to rhabdomyolysis, and is subsequently being dialyzed. Dr. Lopez was consulted regarding possible aspiration pneumonia. He did have an electroencephalogram performed recently on August 29. Reportedly, he was on propofol at that time, and there was diffuse slowing. Recommendation was to stop propofol and repeat EEG. I did review the magnetic resonance imaging study of his brain which demonstrated acute/early subacute infarctions in the globus palatine bilaterally as well as deep white matter of the frontal and temporal and occipital lobes. This is consistent with an anoxic brain injury. He does voluntarily open his eyes and does move all four extremities. He was successfully extubated. There is no seizure activity. As per charting, he was noted to be somewhat alert and responsive to questions. When I examined him, he did not follow complex commands. Reportedly, there was a large volume of vomit suctioned out in the emergency department. The concern is that his anoxic brain injury may have been secondary to aspiration pneumonia and Tequila intoxication. There was noted to be significant metabolic dysfunction which may also result in further encephalopathy superimposed on the anoxic brain injury. He was intubated on August 23, 2016, and extubated on August 28, 2016. Zosyn was stopped per ID recommendations and he is no longer on antibiotics. He is receiving tube feeds, physical therapy and occupational therapy, as well as a speech evaluation, and there is a plan for palliative care involvement and a possible family meeting. There is also reported history of polysubstance use including cocaine and ICE reportedly potent stimulant and amphetamine. My suspicion is that intoxication with these substances from what I can tell, primarily alcohol, may have resulted in respiratory failure and subsequent anoxic brain injury. It is unclear at this time what his long-term prognosis will be. REVIEW OF SYSTEMS: A review of systems could not be performed secondary to his mental status. PHYSICAL EXAMINATION: Temperature 39.4, pulse of 84, respiratory rate of 20, blood pressure 135/70, pulse oximetry 93% on 1 L nasal cannula. Head: Normocephalic, atraumatic. Heart: Regular rate and rhythm. Chest: Clear to auscultation. Extremities: No cyanosis, clubbing, or edema. Skin: No rashes noted. NEUROLOGIC EXAM: Mental status: He alerts to voice, opens his eyes. However, he does not follow commands. These were stated in Kazakh and Greenlandic. He does appear to be tracking. However, as noted, does not follow commands and did not speak to me. No speech was noted. Cranial nerves: Pupils were equal, round, reactive to light. Extraocular movements appear to be intact and conjugate. Face appeared symmetrical. Blink to threat was intact bilaterally. Eye contact was noted. Tongue appeared midline. Motor: Flaccid with no spontaneous movement noted. Deep tendon reflexes were trace throughout. Plantars were equivocal bilaterally. Tone appeared reduced throughout. Sensation: No withdrawal to noxious stimuli noted. Grimace noted. IMPRESSION/RECOMMENDATIONS: A 41-year-old gentleman with suspected anoxic brain injury, with magnetic resonance imaging findings confirmatory of this suspicion, with continued encephalopathy. My suspicion is that metabolic abnormalities may also contribute to his encephalopathy and, at this point, it is hard to tell what his baseline neurologic functioning will be following the anoxic brain injury. As the electrolyte abnormalities normalize and renal function improves, we will have a better idea of what his baseline neurologic function is. LABORATORY STUDIES: Today, WBC of 12.1, hemoglobin 11.2, hematocrit 34.8, platelets of 172. Chemistries: Sodium 143, potassium 4.3, chloride was 101, bicarb 25, BUN was 67, creatinine was 6.41, glucose 112. LFTs remained elevated, although they did improve from before, AST 133, ALT 148, alk phos was 94, total creatine kinase 3008. This is improved, though. The initial creatine kinase was 45,330. Other imaging studies and ultrasound of the abdomen was performed demonstrating cholelithiasis, mild gallbladder wall thickening, echogenic liver demonstrating fatty infiltration, slightly echogenic right kidney suspicious for developing medical renal disease. SUMMARY: In summary, given the abnormalities appreciated on the magnetic resonance imaging study of his brain, he does have anoxic brain injury. However, it is difficult to tell the long-term implications of this in terms of his neurologic function given his multiple metabolic abnormalities including his renal failure at this point. I do recommend palliative care involvement and continued close monitoring. Thank you, again, Dr. Rodriguez, for allowing us to participate in the care of your patient. Please feel free to contact me with any questions or concerns. AUBREY
[2016-08-31 03:16] VITALS: BP 130/71; PULSE 67; RESP 24; O2SAT 96
--- NOTE | 2016-08-31 04:05 | NUR ---
P: A/O x 1 I: reorient, explain care E: Drowsy, oriented to self. States he is in [place]. Unable to state month or year. Slow to answer and mumbles answers. Extremities flaccid. Denies pain, dyspnea, N/V. Off tele. BP stable. Continues low grade temperature. 2L NC to keep sats > 92%. Rare congested cough. Snores when asleep. Occasionally tachypnea. R groin HD cath. Dialyzed yesterday. Makes urine via branham. FMS w/ dark green liquid stool. Skin issues w/ adaptic and foam dressings to upper back and buttocks. Heel boots. Repositioning pt side to side.
[2016-08-31 05:03] VITALS: O2SAT 97
[2016-08-31 05:25] LABS: Mean Corpuscular Hemoglobin 29.3 pg (27.0-35.0); Mean Corpuscular Volume 90.2 fL (81-100); Platelet Count 191 bil/L (150-400)
[2016-08-31 05:46] LABS: BASOPHILS % (AUTO) 0 % (0-3); EOSINOPHILS % (AUTO) 2 % (0-5); MONOCYTES % (AUTO) 9 % (4-12); NEUTROPHILS % (AUTO) 72 % (40-74)
[2016-08-31] MEDS: Thiamine Inj 200 MG in Dextrose 5% 50 ML IV SCH (08:30)
[2016-08-31] MEDS: Heparin 5,000 Unit/mL Inj SUBQ SCH ×2 (08:30→16:30)
[2016-08-31] MEDS ORDERED: Furosemide 10 mg/mL 10 mL Inj IVPUSH ONE ×2 (13:15→13:30)
--- NOTE | 2016-08-31 13:20 | PCM.PNNEPH ---
Subjective Date of Service Aug 31, 2016 Subjective Persistent fevers. Femoral cath has not been removed. Last HD yesterday. Improved UOP. Cr ~ 5.86. Exam Vital Signs Vital Sign - Last Date Time Temp Pulse Resp B/P Pulse Ox O2 Delivery O2 Flow Rate FiO2 08/31/16 05:03 97 Nasal Cannula 2.00 08/31/16 03:16 38.2 67 24 130/71 08/28/16 08:40 30 Intake and Output 08/30/16 08/30/16 08/31/16 Cumulative From/Thru 15:00 23:00 07:00 08/23/16 05:20 - 08/31/16 05:05 Intake Total 752 ml 1003 ml 62923 ml Output Total 0 ml 1250 ml 750 ml 74399 ml Balance 0 ml -498 ml 253 ml 8280 ml Intake Oral 10 ml IV Total 752 ml 643 ml 13681 ml Tube Feeding 320 ml 1805 ml Tube Irrigant 40 ml 640 ml Output Urine Total 1250 ml 500 ml 6595 ml Stool Total 250 ml 1600 ml Gastric Drainage Total 1070 ml Ultrafiltrate 0 ml 4700 ml # Bowel Movements 11 Exam GENERAL: awake, responsive to verbal stimuli, follow commands. HEENT: Head is normocephalic and atraumatic. NECK: Supple, no elevation of JVD, No carotid bruits. No lymphadenopathy or thyromegaly. LUNGS: Clear to auscultation, equal breath sounds bilaterally, no wheezing, no rhonchi no rales. HEART: Normal S1/S2, Regular rate and rhythm, no murmurs, rubs or gallops. 2+ pules throughout. ABDOMEN: Soft, nondistended. nontender. No hepatosplenomegaly was noted. EXTREMITIES: Without any cyanosis, clubbing, rash, lesions or edema. right femoral HD cath in place. Lab and Diagnostics Result Diagram: 08/31/16 0500 08/31/16 0500 Microbiology Blood cultures pending MRSA swab pending X-Rays, CTs and MRIs 08/23/16 PROCEDURE: CT BRAIN WITHOUT CONTRAST ([id number]) IMPRESSION: No acute disease. 08/23/16 PROCEDURE: X-RAY CHEST ONE VIEW, PORTABLE ([id number]) IMPRESSION: Endotracheal tube appropriate in position. No focal infiltrate or abnormality is seen in the lungs. Additional Diagnostics ABG DateTimeAnalyzed 10:20:00 -_ pH ____7.354 - 7.350 7.450 pCO2 ___31.5__ -mmHg 35.0 45.0 pO2 160 -mmHg 69.0 116 HCO3- ___17.1__ -mmol/L 22.0 26.0 FIO2 ___45.0__ -% PRVC 20 - PEEP ____8.0__ -cmH2O Plan Impression 1. Acute kidney injury secondary to rhabdomyolysis. Requiring daily HD x6 17 - 08/30. First treatment on 08/25. Responding with IV lasix, UOP ~ 1600 mL. 2. Rhabdomyolysis, improving. 3. Persistent fevers. 4. Acute hypoxic respiratory failure, resolved. 5. Acute transaminitis. 6. Suspected acute cholecystitis. 6. Polysubstance abuse. Plan: ? HIDA scan. Remove femoral cath, send tip for culture. IV lasix 80 mg x 1. Continue to monitor kidney function and urine output on a daily basis. Nephrotoxins, and adjust medication according to estimated GFR. Alejandro Taipa MD Aug 31, 2016 13:20
--- NOTE | 2016-08-31 14:27 | NUR ---
femoral line removed with ICU nurse for culture of catheter tip, pressure applied afterward and covered with bacitracin gauze and occlusive dressing
--- NOTE | 2016-08-31 16:45 | NUR ---
Social Work- Multidisciplinary Rounds Pt discussed in rounds. Palliative is following and will likely facilitate goals of care conversation with pt and pt's family. Pt requiring wound care. Pt is complex with high needs. [place] [facility] qual[place] for [employer] Emergent Medicaid for inpt stay, unlikely that pt will be able to transfer to [facility] or private pay SNF but TIRE BUFFER will follow up with family regarding this. Dialysis has been discontinued. SW unable to see pt today due to high census. SW will continue to follow. Ernestina Alejo MSW
[2016-08-31 16:46] VITALS: BP 136/72; PULSE 71; RESP 24; O2SAT 97
[2016-08-31 17:00] VITALS: O2SAT 97
--- NOTE | 2016-08-31 18:00 | NUR ---
Progressive mobility/Family assisting w/ PROM with guidance from RN Spouse, pt's son, extended family eager to learn activities of passive rom, gentle massage and rom of pt's hands, fingers, arms, legs, feet. Teaching received well of general "rehab" information of periods of verbal stimulation, music, rom, alternating with rest periods, under guidance of RN. Spouse Stella especially receptive, plus aiding in involving extended family members.
--- NOTE | 2016-08-31 18:01 | PCM.PNMED ---
Subjective Date of Service Aug 31, 2016 Subjective Overnight Events. No acute events overnight. Patient is in bed in no acute distress. The patient continues to interact with limited ability including facial expressions and single word replies in an appropriate manner. His motions are confined to distal fingers, toes and facial expressions. Exam Vital Signs Vital Sign - Last Date Time Temp Pulse Resp B/P Pulse Ox O2 Delivery O2 Flow Rate FiO2 08/31/16 05:03 97 Nasal Cannula 2.00 08/31/16 03:16 38.2 67 24 130/71 08/28/16 08:40 30 Intake and Output 08/30/16 08/30/16 08/31/16 Cumulative From/Thru 15:00 23:00 07:00 08/23/16 05:20 - 08/31/16 05:05 Intake Total 752 ml 1003 ml 60218 ml Output Total 0 ml 1250 ml 750 ml 57004 ml Balance 0 ml -498 ml 253 ml 8280 ml Intake Oral 10 ml IV Total 752 ml 643 ml 42757 ml Tube Feeding 320 ml 1805 ml Tube Irrigant 40 ml 640 ml Output Urine Total 1250 ml 500 ml 6595 ml Stool Total 250 ml 1600 ml Gastric Drainage Total 1070 ml Ultrafiltrate 0 ml 4700 ml # Bowel Movements 11 Exam General: Patient now extebuated 08/28/16, no sign of distress HEENT: Normocephalic, atraumatic. Pupils reactive to light, he is not tracking. Cardiovascular: Regular rate and rhythm with no murmurs, rubs, or gallops appreciated Pulmonary: Clear to auscultation anteriorly with equal air sounds bilaterally Abdomen: Bowel tones present. Soft, nondistended. Extremities: No clubbing, cyanosis, edema, or lymphadenopathy appreciated. Skin: Large erythemetous region around sacrum with open wound about 3 inches in diameter. Similar looking presentation at upper thorax with some ruptured blisters. Neurological: Weakly responsive to questions, able to move toes and fingers, but seems to be decreased from 08/28/16 examination. IVs and Medications Medications Reviewed: Medications were reviewed in detail Lab and Diagnostics Result Diagram: 08/31/16 0500 08/31/16 0500 Microbiology Blood cultures pending MRSA swab pending X-Rays, CTs and MRIs 08/23/16 PROCEDURE: CT BRAIN WITHOUT CONTRAST ([id number]) IMPRESSION: No acute disease. 08/23/16 PROCEDURE: X-RAY CHEST ONE VIEW, PORTABLE ([id number]) IMPRESSION: Endotracheal tube appropriate in position. No focal infiltrate or abnormality is seen in the lungs. Additional Diagnostics ABG DateTimeAnalyzed 10:20:00 -_ pH ____7.354 - 7.350 7.450 pCO2 ___31.5__ -mmHg 35.0 45.0 pO2 160 -mmHg 69.0 116 HCO3- ___17.1__ -mmol/L 22.0 26.0 FIO2 ___45.0__ -% PRVC 20 - PEEP ____8.0__ -cmH2O Assessment & Plan Santiago Ann is a 41 year old male with no known past medical history who came in unresponsive after being found with vomit around him, sedated and intubated for acute hypoxemic respiratory failure secondary to aspiration for 5 days and extubated on hospital day 6 following successful spontaneous breathing trial. He remains awake and severally limited in ability to move proximal/axial muscles. Anoxic Brain Injury, present on admission, active Secondary to asipiration and intoxication. Patient has had large volume of vomit suctioned out in the ED. EEG shows evidence of slowing but no other abnormalities to suggest that the patient is having clinical seizures causing his symptoms. There is significant metabolic dysfunction. This will require a lot of work for rehab. It's uncertain how much recovery can be had. - Intubated on 08/23/16, Extubated on 08/28/16 - Zosyn stopped per ID recommendation. - ICU, Infectious disease, Palliative care and nephrology - CT and MRI head results as above. - Continue tube feeds. - Physical Therapy, Occupational therapy and Speech eval when appropriate. - Will discuss with palliative team plans for another family meeting. - Neurology recommends repeat EEG to for comparison. Will see patient 08/31/16. - Suggest holding off on family meeting till EEG interpretation. Leukocytosis, present on admisson, active Patient has new leukocytosis and is febrile on 08/28/16 after previous resolution. DDx includes cellulitus, aspiration pneumonia, alcoholic hepatitis - Antibiotics stopped as patient has had 7 days of zosyn. - May consider broad spectrum antibiotics if fevers and leukocytosis persists, per ID recommendation. Metabolic Acidosis, present on admission, active Likely secondary to lactic acidosis and uremia - Monitor CMP Rhabdomyolysis, present on admission, [place] [address]. Likely secondary to being in one position for 9 hours. Patient has large erythematous regions at pressure points of sacrum and upper thorax with open wound at sacrum. - Monitor CK - Wound care consult - Nephrology consulted and is following. Acute Kidney Injury, present on admission, active Cr on admission at 3.52 and increasing after admission. Unknown history of kidney injury. - IV fluids stopped 08/27/16 - Nephrology (Dr. Haynes) currently following case. Hemodialysis done daily since 08/25/16. - Continue to monitor Hyperkalemia, present on admission, resolved - Continue to monitor Elevated Liver Function Tests, present on admission, improving Likely due to chronic alcohol use - Currently trending down - Continue to monitor Alcohol dependence -Patient currently sedated no need to institute CIWA protocol at this time Drug dependence -Patient is a known user of cocaine and ice -Per family, last known use is around 5 months ago. Acetaminophen for mild pain when necessary. Bowel regimen Senna and MiraLAX scheduled and PRN. Zofran when necessary for nausea and vomiting. SubQ heparin for now. SCDs in place. Social: Patient is an undocumented immigrant. However he may be eligible for Emergent Alien Inpatient resources. He may not have resources for outpatient care. Disposition: Likely here for > 2 midnights. Dependent upon anoxic brain injury. Pain Evaluation: Adequate Pain Control GI Prophylaxis: Not indicated (Patient extubated) VTE Mechanical Devices: Intermittant Pneumatic CD Resuscitation Status: CPR: Attempt Resuscitation Attending Statement The patient was seen and examined together with Dr. Peterson on 08/31/2016 and I agree with the history, exam and plan as outlined in the note above. . MICHELLE PETERSON DO Aug 31, 2016 07:27 Betito Arias MD Sep 02, 2016 10:05
--- NOTE | 2016-08-31 19:00 | NUR ---
EEG ordered for a.m./Neurologist here & updated Spouse
[2016-08-31 19:25] VITALS: BP 122/71; PULSE 76; RESP 20; O2SAT 96
[2016-08-31] MEDS ORDERED: AMANTADINE 10 MG/ML PO ONE (20:30)
--- NOTE | 2016-08-31 22:30 | NUR ---
Admit/transfer CCU transfer report received from Zuleyma BIRCH, arrived via bed, transferred via slider board, accompanied w/family, spouse and son will stay overnight, patient non-verbal, does respond/moan with turn and transfer otherwise flaccid though did witness independent movement of left fingers during BP check, TF running via NGT,placed on MANOJ P500, skin issues under wound recorded on admit, TQ2, F/C and FMS in place appear patent
--- NOTE | 2016-08-31 22:55 | NUR ---
Transfer Patient transferred to [facility], report to QUETA Guillen. All of patient's belongings, chart, and medications were transferred with patient. [employer] Supervisor was used to update who is agreeable with transfer.
[2016-08-31 23:30] VITALS: BP 129/59; PULSE 75; RESP 20; O2SAT 97
[2016-09-01] MEDS: Heparin 5,000 Unit/mL Inj SUBQ SCH ×3 (01:12→16:17)
[2016-09-01 06:32] VITALS: BP 134/75; PULSE 69; RESP 21; O2SAT 97
[2016-09-01] MEDS ORDERED: AMANTADINE 10 MG/ML PO SCH (08:30)
[2016-09-01 08:48] LABS: Mean Corpuscular Hemoglobin 28.9 pg (27.0-35.0)
[2016-09-01 09:00] VITALS: BP 141/76; PULSE 70; RESP 18; O2SAT 97
[2016-09-01] MEDS: Thiamine Inj 200 MG in Dextrose 5% 50 ML IV SCH (11:11)
--- NOTE | 2016-09-01 11:43 | PCM.PNNEPH ---
Subjective Date of Service Sep 01, 2016 Subjective Femoral cath removed, catheter tip sent for culture. Persistent fever. Good UOP. Last HD on 08/30. Cr elevated. Exam Vital Signs Vital Sign - Last Date Time Temp Pulse Resp B/P Pulse Ox O2 Delivery O2 Flow Rate FiO2 09/01/16 09:00 38.5 70 18 141/76 97 Nasal Cannula 2.00 08/28/16 08:40 30 Intake and Output 08/31/16 08/31/16 09/01/16 Cumulative From/Thru 15:00 23:00 07:00 08/23/16 05:20 - 09/01/16 06:42 Intake Total 1157 ml 1338 ml 31282 ml Output Total 2450 ml 1300 ml 48983 ml Balance -1293 ml 38 ml 7025 ml Intake Oral 0 ml 10 ml IV Total 532 ml 454 ml 58970 ml Tube Feeding 625 ml 764 ml 3194 ml Tube Irrigant 120 ml 760 ml Output Urine Total 2400 ml 1000 ml 9995 ml Stool Total 50 ml 300 ml 1950 ml Gastric Drainage Total 1070 ml Ultrafiltrate 4700 ml # Bowel Movements 0 11 Exam GENERAL: awake, responsive to verbal stimuli, follow simple commands, eyes open spontaneously. HEENT: Head is normocephalic and atraumatic. NECK: Supple, no elevation of JVD, No carotid bruits. No lymphadenopathy or thyromegaly. LUNGS: Clear to auscultation, equal breath sounds bilaterally, no wheezing, no rhonchi no rales. HEART: Normal S1/S2, Regular rate and rhythm, no murmurs, rubs or gallops. ABDOMEN: Soft, nondistended. nontender. No hepatosplenomegaly was noted. EXTREMITIES: Without any cyanosis, clubbing, rash, lesions or edema. Lab and Diagnostics Result Diagram: 09/01/16 0620 09/01/16 0620 Microbiology Blood cultures pending MRSA swab pending X-Rays, CTs and MRIs 08/23/16 PROCEDURE: CT BRAIN WITHOUT CONTRAST ([id number]) IMPRESSION: No acute disease. 08/23/16 PROCEDURE: X-RAY CHEST ONE VIEW, PORTABLE ([id number]) IMPRESSION: Endotracheal tube appropriate in position. No focal infiltrate or abnormality is seen in the lungs. Additional Diagnostics ABG DateTimeAnalyzed 10:20:00 -_ pH ____7.354 - 7.350 7.450 pCO2 ___31.5__ -mmHg 35.0 45.0 pO2 160 -mmHg 69.0 116 HCO3- ___17.1__ -mmol/L 22.0 26.0 FIO2 ___45.0__ -% PRVC 20 - PEEP ____8.0__ -cmH2O Plan Impression 1. Acute kidney injury secondary to rhabdomyolysis. Requiring daily HD x 716 - 08/30. Excellent urine output but no improvement of glomerular filtration. 2. Hypernatremia, unable to access free water. 3. Rhabdomyolysis, improving. 4. Persistent fevers. 5. Acute hypoxic respiratory failure, resolved. 6. Anoxic brain injury. 7. Acute transaminitis. 8. Cholelithiasis suspected acute cholecystitis. 9. Polysubstance abuse. Plan: Start 1/2 NS 100 ml/hr, repeat BMP in am. If cr worsens, may need another nontunneled cath placement for HD. Continue to monitor kidney function and urine output on a daily basis. Nephrotoxins, and adjust medication according to estimated GFR. Alejandro Tapia MD Sep 01, 2016 11:43 Alejandro Tapia MD Sep 01, 2016 11:43
--- NOTE | 2016-09-01 12:00 | PCM.PNMED ---
Subjective Date of Service Sep 01, 2016 Subjective Patient seen and examined. Alert, but not interactive. Follows command partially. Squeezed my fingers with left hand, however unable to do with right hand. Exam Vital Signs Vital Sign - Last Date Time Temp Pulse Resp B/P Pulse Ox O2 Delivery O2 Flow Rate FiO2 09/01/16 09:00 38.5 70 18 141/76 97 Nasal Cannula 2.00 08/28/16 08:40 30 Intake and Output 08/31/16 08/31/16 09/01/16 Cumulative From/Thru 15:00 23:00 07:00 08/23/16 05:20 - 09/01/16 06:42 Intake Total 1157 ml 1338 ml 68679 ml Output Total 2450 ml 1300 ml 45626 ml Balance -1293 ml 38 ml 7025 ml Intake Oral 0 ml 10 ml IV Total 532 ml 454 ml 35333 ml Tube Feeding 625 ml 764 ml 3194 ml Tube Irrigant 120 ml 760 ml Output Urine Total 2400 ml 1000 ml 9995 ml Stool Total 50 ml 300 ml 1950 ml Gastric Drainage Total 1070 ml Ultrafiltrate 4700 ml # Bowel Movements 0 11 Exam General: Patient now extebuated 08/28/16, no sign of distress HEENT: Normocephalic, atraumatic. Pupils reactive to light, he is not tracking. Cardiovascular: Regular rate and rhythm with no murmurs, rubs, or gallops appreciated Pulmonary: Clear to auscultation anteriorly with equal air sounds bilaterally Abdomen: Bowel tones present. Soft, nondistended. Extremities: No clubbing, cyanosis, edema, or lymphadenopathy appreciated. Skin: Large erythemetous region around sacrum with open wound about 3 inches in diameter. Similar looking presentation at upper thorax with some ruptured blisters. Neurological: Weakly responsive to questions, able to move toes and fingers, squeezed fingers with left hand, not with right. PERRLA. Lab and Diagnostics Result Diagram: 09/01/16 0620 09/01/16 0620 Microbiology Blood cultures pending MRSA swab pending X-Rays, CTs and MRIs 08/23/16 PROCEDURE: CT BRAIN WITHOUT CONTRAST ([id number]) IMPRESSION: No acute disease. 08/23/16 PROCEDURE: X-RAY CHEST ONE VIEW, PORTABLE ([id number]) IMPRESSION: Endotracheal tube appropriate in position. No focal infiltrate or abnormality is seen in the lungs. Additional Diagnostics ABG DateTimeAnalyzed 10:20:00 -_ pH ____7.354 - 7.350 7.450 pCO2 ___31.5__ -mmHg 35.0 45.0 pO2 160 -mmHg 69.0 116 HCO3- ___17.1__ -mmol/L 22.0 26.0 FIO2 ___45.0__ -% PRVC 20 - PEEP ____8.0__ -cmH2O Assessment & Plan Santiago Ann is a 41 year old male with no known past medical history who came in unresponsive after being found with vomit around him, sedated and intubated for acute hypoxemic respiratory failure secondary to aspiration for 5 days and extubated on hospital day 6 following successful spontaneous breathing trial. He remains awake and severally limited in ability to move proximal/axial muscles. Anoxic Brain Injury, present on admission, active Secondary to asipiration and intoxication. Patient has had large volume of vomit suctioned out in the ED. EEG shows evidence of slowing but no other abnormalities to suggest that the patient is having clinical seizures causing his symptoms. There is significant metabolic dysfunction. This will require a lot of work for rehab. It's uncertain how much recovery can be had. - Intubated on 08/23/16, Extubated on 08/28/16 - Zosyn stopped per ID recommendation. - ICU, Infectious disease, Palliative care and nephrology - CT and MRI head results as above. - Continue tube feeds. - Physical Therapy, Occupational therapy and Speech eval when appropriate. - Will discuss with palliative team plans for another family meeting. - Neurology recommends repeat EEG to for comparison. Will see patient 08/31/16. - Suggest holding off on family meeting till EEG interpretation. Leukocytosis, present on admisson, active Patient has new leukocytosis and is febrile on 08/28/16 after previous resolution. DDx includes cellulitus, aspiration pneumonia, alcoholic hepatitis - Antibiotics stopped as patient has had 7 days of zosyn. - May consider broad spectrum antibiotics if fevers and leukocytosis persists, per ID recommendation. Metabolic Acidosis, present on admission, active Likely secondary to lactic acidosis and uremia - Monitor CMP Rhabdomyolysis, present on admission[place] [address]. Likely secondary to being in one position for 9 hours. Patient has large erythematous regions at pressure points of sacrum and upper thorax with open wound at sacrum. - Monitor CK - Wound care consult - Nephrology consulted and is following. Acute Kidney Injury, present on admission, active Cr on admission at 3.52 and increasing after admission. Unknown history of kidney injury. - IV fluids stopped 08/27/16 - Nephrology (Dr. Haynes) currently following case. Hemodialysis done daily since 08/25/16. - Continue to monitor Hyperkalemia, present on admission, resolved - Continue to monitor Elevated Liver Function Tests, present on admission, improving Likely due to chronic alcohol use - Currently trending down - Continue to monitor Alcohol dependence -Patient currently sedated no need to institute CIWA protocol at this time Drug dependence -Patient is a known user of cocaine and ice -Per family, last known use is around 5 months ago. Acetaminophen for mild pain when necessary. Bowel regimen Senna and MiraLAX scheduled and PRN. Zofran when necessary for nausea and vomiting. SubQ heparin for now. SCDs in place. Social: Patient is an undocumented immigrant. However he may be eligible for Emergent Alien Inpatient resources. He may not have resources for outpatient care. Disposition: Likely here for > 2 midnights. Dependent upon anoxic brain injury. GI Prophylaxis: Not indicated (Patient extubated) VTE Mechanical Devices: Intermittant Pneumatic CD Resuscitation Status: CPR: Attempt Resuscitation Ramón Hart MD Sep 01, 2016 12:00
[2016-09-01 12:30] VITALS: BP 144/75; PULSE 72; RESP 24; O2SAT 93
--- NOTE | 2016-09-01 14:15 | NUR ---
NUTRITION FOLLOW UP: ASSESS: 41 YO male admitted to CCU after pt found unresponsive. Pt with aspiration pneumonia and rhabdomyolysis. Pt was extubated 08/28. He continues to have acute encephalopathy and remain NPO. TF were restarted on 08/30 at 30 ML/hr. Pt last dialysis was 08/30 and femoral cath was removed. Pt with good urine output but Na, BUN and Cr are increasing. IV fluids restarted but if trend continues, pt may require additional dialysis. PMHx: ETOH abuse. DIET: NPO. NUTRITION SUPPORT: Nepro at 65 mL/hr to provide 2691 kcal and 121 g protein per day. LABS: Reviewed. Na 147, BUN 97, Cr 7.39, Glu 130, Ca 8.2, AST 83, ALT 138, ALB 2.7 MEDICATIONS: Reviewed. GI: FMS in place: 1075 mL output (08/29) dark green / brown liquid. SKIN: Wound care following. Stag 2 PU on sacrum and thoracic spine, unchanged, per Rope Twisting Machine Operator. ANTHROPOMETRICS: Current Wt: 97 kg. Admit wt: 95.1 kg. IBW: 72.7 kg ESTIMATED NEEDS (Renal, wounds, BMI) Calories: 4443-9696 kcal/day (22-25 kcal/kg BW) Protein: 110-130 g protein (1.5-1.8 g/kg BW IBW) Fluid: Approx. ~2610 mL (25mL/kg BW) or per nephrology recommendations NUTRITION DIAGNOSIS: 1) Inadequate oral intake related to inability to consume sufficient energy due to cognition, as evidenced by NPO status - PERSISTS. 2) Increased nutrient needs related to ESRD and increased demand for healing as evidence by need for dialysis and pt with stg 2 PU on sacrum and thoracic spine - PERSISTS. INTERVENTION: 1) Continue current TF at this time to see if fluids will correct Na, BUN, and Cr. If BUN/Cr continue to increase, recommend decreasing TF to provide less protein until dialysis can be restarted if needed. Consider increasing free H2O flushes thru NG Tube once IV fluids have been discontinued. MONITOR/EVALUATE: Enteral feeding tolerance, labs, weights, GI/nutrition status. Follow per high nutrition risk guidelines.
[2016-09-01 16:30] VITALS: BP 133/71; PULSE 69; RESP 20; O2SAT 99
--- NOTE | 2016-09-01 16:53 | NUR ---
Shift Report Patient remains total care. Frequent turns. Changed dsg on scapula (mepilex). Wound scabbed over, healing. Changed dsg on buttocks. Non adherent dsg applied to excoriated buttocks, L>R, and mepilex then applied. Pt. febrile today, awaiting cultures from tip of hemodialysis cath. Bath and cooling clothes provided. Sat with assistance at sit of bed with PT. Remains NPO per speech after working with him today, will reassess him tomorrow. Family support given. Awaiting EEG results from imaging completed this morning. Espinoza and Rectal Type remain in place.
[2016-09-01 20:38] VITALS: BP 151/80; PULSE 67; RESP 18; O2SAT 95
--- NOTE | 2016-09-01 22:53 | PROCED ---
[address] [address] EEG PATIENT: SANDY SOSA : 1975 MR#: [id number] ADMIT: 08/23/2016 JOB ID: [id number] DATE OF SERVICE: 09/01/2016 HISTORY: The patient is a 41-year-old man with an anoxic brain injury. TECHNICAL DESCRIPTION: This digital EEG was recorded using 25 scalp and ear, and 2 EKG electrodes. It was reviewed in bipolar and referential montages following reformatting of the 10-20 [employer] Electrode Placement System. During the recording, the patient was noted to be awake. The background was composed of a polymorphic mixture of theta and faster frequencies ranging from 6-9 Hz, 10-20 microvolt symmetrical posterior dominant rhythm that attenuated with eye opening. There was abundant myogenic and movement artifact as well and clenched teeth artifact throughout the study. Photic stimulation from 1-30 hertz did not elicit any photic driving response. Hyperventilation could not be performed as the patient could not follow commands. No sleep was appreciated. There were no focal, lateralized, or epileptiform discharges noted. The EKG rhythm strip revealed a heart rate of 60 to 80 beats per minute with no apparent arrhythmias. IMPRESSION: This electroencephalogram performed in the awake state is abnormal. It is suggestive of [id number] cerebral cortical dysfunction/encephalopathy. This is a nonspecific finding and may be seen in a wide variety of different clinical conditions, including toxic, metabolic, hypoxic, autoimmune, infectious, inflammatory, ischemic conditions as well as medication side effect. In this case, I suspect that this is secondary to the patient's underlying anoxic brain injury, however, a toxic metabolic etiology cannot be excluded. Clinical correlation is advised.
[2016-09-02] VITALS (7 sets, daily range): BP systolic 127–157; BP diastolic 75–85; PULSE 74–83; RESP 16–20; O2SAT 94–99
[2016-09-02] MEDS: Heparin 5,000 Unit/mL Inj SUBQ SCH ×3 (00:52→16:41)
--- NOTE | 2016-09-02 05:35 | NUR ---
Turning Pt. is bedrest and total assist, turned q2, FC,FMS and NGT in place, intact and patent, IVF to MANISH infusing well, pt. responded to yes/no questions by nodding and shaking his head, wiggle toes, unable to move all ext, foam boots in place, family at bedside, Vitals stable, hourly checks and will continue to monitor.
--- NOTE | 2016-09-02 08:13 | NUR ---
Temp 100.3 Elevated Temp. Ghassan stratton hospitalist. Awaiting call back with orders.
[2016-09-02] MEDS: Thiamine Inj 200 MG in Dextrose 5% 50 ML IV SCH (08:26)
--- NOTE | 2016-09-02 08:52 | NUR ---
Temp and headache Dr Minerva Wilson here in the unit. Notified of headaches and fever and states," i will see him." awaiting orders.
[2016-09-02] MEDS: AMANTADINE 10 MG/ML TUBE SCH (09:53)
--- NOTE | 2016-09-02 10:01 | NUR ---
New orders New orders for Tylenol suppository for fever and pain. Ghassan stratton doctor r/t unable to give Tylenol suppository due to rectal tube placement currently. Awaiting new orders to change the Tylenol Route.
--- NOTE | 2016-09-02 10:11 | NUR ---
Evaluation completed. Please go to "Notes" then click on "Assessments and Notes" (bottom left corner of screen). Then select appropriate discipline tab on top of screen.
[2016-09-02 10:47] LABS: Mean Corpuscular Hemoglobin 29.1 pg (27.0-35.0); Mean Corpuscular Volume 91.2 fL (81-100)
--- NOTE | 2016-09-02 11:25 | NUR ---
Nephrology Nephrology at bed side. notified r/t temp 100.6. Lab called BUN 100 and creat 6.22, nephrology Dr. Haynes aware. new orders to change flush to 200cc every 4 hours. Orders followed.
[2016-09-02] MEDS: Acetaminophen 32.5 mg/mL 20 mL Liquid PO PRN (12:18)
--- NOTE | 2016-09-02 12:33 | NUR ---
Temp/blood cultures New orders for liquid Tylenol. given as ordered for elevated temp 100.3. Dr. Wilson aware. new orders for blood cultures. blood cultures set 1 drawn and sent with lab. continue to monitor temp.
--- NOTE | 2016-09-02 13:40 | NUR ---
Temp patient does not open mouth for oral temp. Temp 101.1 armpit after liquid tylenol given as ordered. Phone page to Dr. Minerva Wilson. Awaiting call back.
--- NOTE | 2016-09-02 14:25 | PCM.PNNEPH ---
Subjective Date of Service Sep 02, 2016 Subjective Femoral cath removed 2, no subsequent dialysis, last HD 08/30/2016. Preliminary catheter tip culture negative. Continues to have persistent fevers. Creatinine remains elevated though trending down, BUN continues to elevate. EEG suggests mild to moderate cerebral cortical dysfunction/ encephalopathy most likely secondary to anoxic brain injury. Overnight patient continues to have fevers. Today patient somewhat responsive and able to follow some commands though refuses to open mouth. Is able to squeeze with his left hand. Family at bedside Exam Vital Signs Vital Sign - Last Date Time Temp Pulse Resp B/P Pulse Ox O2 Delivery O2 Flow Rate FiO2 09/02/16 13:47 38.4 74 142/78 97 Room Air 09/02/16 11:17 18 2.00 08/28/16 08:40 30 Intake and Output 09/01/16 09/01/16 09/02/16 Cumulative From/Thru 15:00 23:00 07:00 08/23/16 05:20 - 09/02/16 06:24 Intake Total 2152 ml 2087 ml 36536 ml Output Total 1650 ml 3500 ml 53452 ml Balance 502 ml -1413 ml 6114 ml Intake Oral 10 ml IV Total 1139 ml 1172 ml 45445 ml Tube Feeding 893 ml 915 ml 5002 ml Tube Irrigant 120 ml 880 ml Output Urine Total 1250 ml 2300 ml 35971 ml Stool Total 400 ml 1200 ml 3550 ml Gastric Drainage Total 1070 ml Ultrafiltrate 4700 ml # Bowel Movements 11 Exam General: Lying in hospital bed, awake and responsive to verbal stimuli. Able to follow some commands, refusing to follow others. HEENT: Normocephalic, atraumatic. Pupils equal, round, and reactive to light and accommodation. Dry oral mucosa. Neck: No jugular venous distension. Cardiovascular: Regular rate and rhythm with no murmurs, rubs, or gallops appreciated Pulmonary: Clear to auscultation bilaterally with no crackles, wheezes, or rhonchi. Normal respiratory effort with no use of accessory muscles. Abdomen: Bowel tones present. Soft, nontender, nondistended. No rebound tenderness, no rigidity and no guarding. Pittman sign negative Extremities: No clubbing, cyanosis, edema Skin: Warm to palpation with normal turgor, no rash IVs and Medications Medications Reviewed: Medications were reviewed in detail Lab and Diagnostics Result Diagram: 09/02/16 1030 09/02/16 1030 Microbiology Blood cultures pending MRSA swab pending X-Rays, CTs and MRIs . CT BRAIN WITHOUT CONTRAST IMPRESSION: No acute disease. Dictated by: Hemant Gallegos M.D. on 08/23/2016 CT BRAIN WITHOUT CONTRAST IMPRESSION: 1. Diffuse bilateral hypodensity of the globus pallidus. This is a new finding when compared with the study dated 08/23/16. Differential considerations include anoxic injury, carbon monoxide neurotoxicity, excessive alcohol ingestion, and methanol or ethylene glycol ingestion. Dictated by: Dinora Kang M.D. 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 Dictated by: Jacob Mosqueda M.D. on 08/28/2016 US RENAL SONOGRAM IMPRESSION: No hydronephrosis. Right renal cyst. Dictated by: Shobha Vale M.D. on 08/24/2016 US ABDOMEN IMPRESSION: 1. Cholelithiasis. 2. Mild gallbladder wall thickening. Acute cholecystitis cannot be excluded. 3. Echogenic liver. Finding typically represents fatty infiltration; however, finding is nonspecific and correlation with clinical and laboratory findings is recommended to exclude other etiologies including hepatic cirrhosis. 4. Slightly echogenic right kidney suspicious for developing medical renal disease. Please correlate with clinical and laboratory data. Dictated by: Swathi Jimenes MD, PhD on 08/29/2016 X-RAY CHEST ONE VIEW, PORTABLE IMPRESSION: No acute disease is seen a semiupright portable chest. Tubes are considered appropriate radiographically. Dictated by: Hemant Gallegos M.D. on 08/23/2016 X-RAY CHEST ONE VIEW, PORTABLE IMPRESSION: Support lines as above. Otherwise, no acute pulmonary process. Dictated by: Shobha Vale M.D. on 08/24/2016 X-RAY CHEST ONE VIEW, PORTABLE IMPRESSION: No acute cardiopulmonary disease process. Dictated by: Swathi Jimenes MD, PhD on 08/25/2016 X-RAY CHEST ONE VIEW, PORTABLE IMPRESSION: 1. Left basilar atelectasis. Otherwise lungs are clear. 2. ET and enteric tubes. Dictated by: Jacob Mosqueda M.D. on 08/27/2016 at 9:53 X-RAY CHEST ONE VIEW, PORTABLE IMPRESSION: Stable left basilar atelectasis and support lines. Dictated by: Jacob Mosqueda M.D. on 08/28/2016 at 7:54 Additional Diagnostics ABG DateTimeAnalyzed 10:20:00 -_ pH ____7.354 - 7.350 7.450 pCO2 ___31.5__ -mmHg 35.0 45.0 pO2 160 -mmHg 69.0 116 HCO3- ___17.1__ -mmol/L 22.0 26.0 FIO2 ___45.0__ -% PRVC 20 - PEEP ____8.0__ -cmH2O Plan Impression 1. Acute kidney injury secondary to rhabdomyolysis. Requiring daily HD x 716 - 08/30, catheter removed. Urine output remains high approximately 2.5 L per day, BUN continues to elevate and GFR remains at about 10. This is most likely secondary to recovery phase of acute tubular necrosis, however BUN continues to trend upward suggesting persistence of the maintenance phase 2. Hypernatremia, unable to access free water. Today's lab values shows normalization of sodium 3. Rhabdomyolysis, improving. 4. Persistent fevers. 5. Acute hypoxic respiratory failure, resolved. 6. Anoxic brain injury. 7. Acute transaminitis. 8. Cholelithiasis suspected acute cholecystitis. 9. Polysubstance abuse. Plan: Continue 1/2 NS 150 ml/hr Continue to monitor BMP Creatinine has started downward trend, however iof cr worsens, may need another nontunneled cath placement for HD. Continue to monitor kidney function and urine output on a daily basis. Avoid Nephrotoxins, and adjust medication according to estimated GFR. Consider HIDA scan as abdominal ultrasound showed mild gallbladder wall thickening. Acute cholecystitis cannot be excluded. DORA RIVAS DO Sep 02, 2016 14:25
--- NOTE | 2016-09-02 16:39 | DRSVH ---
PROCEDURE: X-RAY CHEST ONE VIEW, PORTABLE ([id number]) INDICATIONS: FEver work up, concern for aspiration TECHNIQUE: One view of the chest was acquired. COMPARISON: [facility], CR, XR CHEST 1VW (PORTABLE), 08/28/2016, 5:15. [facility], CR, XR CHEST 1VW (PORTABLE), 08/27/2016, 5:11. [facility], CR, XR CHEST 1VW (JESSICA BLE), 08/26/2016, 4:26. [facility], CR, XR CHEST 1VW (PORTABLE), 08/30/2016, 18:29. FINDINGS: Surgical changes and devices: Dobbhoff catheter redemonstrated tip traversing the GE junction. Right PICC tip projected over the mid to lower SVC. Lungs and pleura: Interval increase in consolidation involving the mid left lung and left lung base. Right lung remains clear. Mediastinum: Mediastinal contours appear normal. Heart size is normal. Bones and chest wall: No suspicious bony lesions. Overlying soft tissues appear unremarkable. IMPRESSION: Increasing consolidation within the mid left lung and left lung base consistent with wors ening atelectasis versus aspiration or pneumonia. Dictated by: Juma VILLAA Interpreted: Alex Govea MD on 09/02/2016 at 16:26 Approved by: Alex Govea M.D. on 09/02/2016 at 16:37
--- NOTE | 2016-09-02 16:46 | NUR ---
Temp back up Temp 101.8. Blood culture results pending. Dr. Minerva zavala here at the unit and aware r/t Temp 101.8. Last Tylenol was given for fever 4 hours ago. per orders Tylenol every 6 hours. No new orders received. per Dr. Zavala," continue to monitor temp." spouse aware. per Dr sally Raymond will be here to see patient after 1700. Spouse aware.
--- NOTE | 2016-09-02 19:01 | NUR ---
Therapy OT, PT, and speech therapist this morning at bed side.
--- NOTE | 2016-09-02 19:23 | NUR ---
Report Report given to night nurse Carl BIRCH.
[2016-09-02] MEDS: Ertapenem Inj 500 MG in 0.9% Sodium Chloride 50 ML IV SCH (20:21)
--- NOTE | 2016-09-02 20:45 | NUR ---
Consult Neuro MD to floor to see patient and talked w/spouse about prognosis, no changes notably in neuro though spouse says he converses more, turned and repositioned .
--- NOTE | 2016-09-02 21:26 | PCM.PNMED ---
Subjective Date of Service Sep 02, 2016 Subjective This is a 41 yo Male thought to have suffered anoxic brain injury after consumption of drugs and alcohol and aspirating. He was intubated then was extubeted. He is now minimally responsive, palliative care is involved. He continues to have fevers but waiting on abx as he was already treated with s even days of zosyn and fevers thought to be central. IF further concern, carbapenem+micafungin per dr. Shirley Patient had a second EEG yesterday. Neurology wanted to wait till this EEG was out prior to discussing comfort care hospice care etc. The interview in the room is done with the help of spanish interpreter/translator, and family friend, family friend's child are present in the room. says that patient has improved his talking to her, she thinks that she has slightly blood-tinged mucus in his mouth but patient was not opening his mouth. Patient said Laura at one time, but had no further conversation and interaction. He appears to be responsive to pain and light. Exam Vital Signs Vital Sign - Last Date Time Temp Pulse Resp B/P Pulse Ox O2 Delivery O2 Flow Rate FiO2 09/02/16 05:00 Supplement Oxygen 09/02/16 04:14 37.5 76 17 129/75 97 2.00 08/28/16 08:40 30 Intake and Output 09/01/16 09/01/16 09/02/16 Cumulative From/Thru 15:00 23:00 07:00 08/23/16 05:20 - 09/01/16 18:35 Intake Total 2152 ml 96728 ml Output Total 1650 ml 86774 ml Balance 502 ml 7527 ml Intake Oral 10 ml IV Total 1139 ml 41772 ml Tube Feeding 893 ml 4087 ml Tube Irrigant 120 ml 880 ml Output Urine Total 1250 ml 82760 ml Stool Total 400 ml 2350 ml Gastric Drainage Total 1070 ml Ultrafiltrate 4700 ml # Bowel Movements 11 Exam General: no sign of distress HEENT: Normocephalic, atraumatic. Pupils reactive to light, he is not tracking. Cardiovascular: Regular rate and rhythm with no murmurs, rubs, or gallops appreciated Pulmonary: Clear to auscultation anteriorly with equal air sounds bilaterally Abdomen: Bowel tones present. Soft, nondistended. Extremities: No clubbing, cyanosis, edema, or lymphadenopathy appreciated. Neurological: Weakly responsive to pain, mostly verbally nonresponsive, able to move toes and fingers, did not squeeze fingers with either hand. Negative Babinski's, Achilles reflexes are present IVs and Medications Medications Reviewed: Medications were reviewed in detail Lab and Diagnostics Laboratory Tests Test 09/02/16 10:30 White Blood Count 15.5th/mm3 (3.8-10.1) Red Blood Count 3.51mil/mm3 (4.40-5.80) Hemoglobin 10.2g/dL (13.8-17.2) Hematocrit 32.0% (41.0-50.0) Mean Corpuscular Volume 91.2fL (81-100) Mean Corpuscular Hemoglobin 29.1pg (27.0-35.0) Mean Corpuscular Hemoglobin Concent 31.9% (32.0-37.0) Red Cell Distribution Width 13.2% (12.3-15.4) Platelet Count 220bil/L (150-400) Erythrocyte Sedimentation Rate 60mm/hr (0-15) Sodium Level 142mEq/L (134-144) Potassium Level 4.3mEq/L (3.5-5.2) Chloride Level 106mEq/L (97-108) Carbon Dioxide Level 18mmol/L (18-29) Blood Urea Nitrogen 100mg/dL (6-24) Creatinine 6.22mg/dL (0.76-1.27) Estimat Glomerular Filtration Rate 11mL/min (>59) Glucose Level 119mg/dL (60-99) Calcium Level 7.5mg/dL (8.5-10.1) C-Reactive Protein 2.4mg/dL (0.0-0.5) Procalcitonin 0.38ng/mL (0.00-0.08) Microbiology 09/02/16 Blood Culture, Received Pending 08/29/16 C. difficile DNA Amplification - Final, Complete 08/24/16 Sputum Quality Screen - Final, Complete 08/24/16 Sputum Culture - Final, Complete LIGHT NORMAL OBI PRESENT 08/31/16 Culture & Sensitivity - Preliminary, Resulted No growth to date Result Diagram: 09/01/16 0620 09/01/16 0620 Microbiology Blood cultures pending MRSA swab pending X-Rays, CTs and MRIs 08/23/16 PROCEDURE: CT BRAIN WITHOUT CONTRAST ([id number]) IMPRESSION: No acute disease. 08/23/16 PROCEDURE: X-RAY CHEST ONE VIEW, PORTABLE ([id number]) IMPRESSION: Endotracheal tube appropriate in position. No focal infiltrate or abnormality is seen in the lungs. Additional Diagnostics ABG DateTimeAnalyzed 10:20:00 -_ pH ____7.354 - 7.350 7.450 pCO2 ___31.5__ -mmHg 35.0 45.0 pO2 160 -mmHg 69.0 116 HCO3- ___17.1__ -mmol/L 22.0 26.0 FIO2 ___45.0__ -% PRVC 20 - PEEP ____8.0__ -cmH2O Assessment & Plan Santiago Ann is a 41 year old male with no known past medical history who came in unresponsive after being found with vomit around him, sedated and intubated for acute hypoxemic respiratory failure secondary to aspiration for 5 days and extubated on hospital day 6 following successful spontaneous breathing trial. He remains awake and severally limited in ability to move proximal/axial muscles. Anoxic Brain Injury, present on admission, active Secondary to asipiration and intoxication. Patient has had large volume of vomit suctioned out in the ED. EEG shows evidence of slowing but no other abnormalities to suggest that the patient is having clinical seizures causing his symptoms. There is significant metabolic dysfunction. This will require a lot of work for rehab. It's uncertain how much recovery can be had. - Intubated on 08/23/16, Extubated on 08/28/16 - Zosyn stopped per ID recommendation. - ICU, Infectious disease, Palliative care and nephrology - CT and MRI head results as above. - Continue tube feeds. - Physical Therapy, Occupational therapy and Speech eval when appropriate. - Palliative care has not yet met with the patient's family this a.m. - Neurology recommends repeat EEG to for comparison. I called Dr. guillaume who has read the follow-up EEG, he feels that there has been an improvement even though he is remarkable for encephalopathy due to anoxic brain injury versus infectious etiologies. He feels that there might be some improvement in patient 's status though he will never regained his previous functional status. Patient 's bite seems to be thinking that patient will get back to his normal life, informed Dr. guillaume of this. He says he will see the patient this evening and will discuss case with them Leukocytosis, present on admisson, active Patient has new leukocytosis and is febrile on 08/28/16 after previous resolution. - Antibiotics stopped as patient has had 7 days of zosyn. -Case discussed with the Dr. Lopez this after oon as patient is having increasing leukocytosis, continued fevers, chest x-ray showed considerable consolidation versus aspiration pneumonia -- Placed patient on ertapenem, micafungin after drawing repeat blood cultures -- UA is pending -- Pro-calcitonin is trending down, 0.38 Metabolic Acidosis, present on admission, active Likely secondary to lactic acidosis and uremia - Monitor CMP Rhabdomyolysis, present on admission, [place] [id number]. Likely secondary to being in one position for 9 hours. Patient has large erythematous regions at pressure points of sacrum and upper thorax with open wound at sacrum. - Wound care consult - Nephrology consulted and is following. They recently did culture the dialysis catheter tip. This showed no growth to date -- Patient is not currently receiving dialysis Acute Kidney Injury, present on admission, active Cr on admission at 3.52 and increasing after admission. Unknown history of kidney injury. - IV fluids stopped 08/27/16 - Nephrology (Dr. Haynes) currently following case. Hemodialysis done daily since 08/25/16 till 1-2 days ago. No longer an hemodialysis currently is catheter is removed - Continue to monitor Hyperkalemia, present on admission, resolved - Continue to monitor Elevated Liver Function Tests, present on admission, improving Likely due to chronic alcohol use - Currently trending down - Continue to monitor Alcohol dependence -Patient currently sedated no need to institute CIWA protocol at this time Drug dependence -Patient is a known user of cocaine and ice -Per family, last known use is around 5 months ago. Acetaminophen for mild pain when necessary. Bowel regimen Senna and MiraLAX scheduled and PRN. Zofran when necessary for nausea and vomiting. SubQ heparin for now. SCDs in place. Social: Patient is an undocumented immigrant. However he may be eligible for Emergent Alien Inpatient resources. He may not have resources for outpatient care. Family does not seem to be understanding of his prognosis, is expecting that he would recover completely. We will continue discussions. Palliative care Disposition: Likely here for > 2 midnights. Dependent upon anoxic brain injury. GI Prophylaxis: Not indicated (Patient extubated) VTE Mechanical Devices: Intermittant Pneumatic CD Resuscitation Status: CPR: Attempt Resuscitation Time spent 25 Minerva Wilson DO Sep 02, 2016 05:16
[2016-09-02] MEDS: Micafungin Inj 100 MG in 0.9% Sodium Chloride 100 ML IV SCH (21:46)
[2016-09-03] MEDS: Heparin 5,000 Unit/mL Inj SUBQ SCH ×3 (00:51→16:02)
[2016-09-03] MEDS: Acetaminophen 32.5 mg/mL 20 mL Liquid PO PRN (01:04)
[2016-09-03 01:35] LABS: APPEARANCE,URINE HAZY (CLEAR,HAZY); COLOR,URINE STRAW (YELLOW); OCCULT BLOOD,URINE MODERATE (NEGATIVE); UROBILINOGEN,URINE NORMAL (NORMAL)
[2016-09-03 02:06] VITALS: BP 148/85; PULSE 77; RESP 22; O2SAT 94
[2016-09-03 05:57] VITALS: BP 145/80; PULSE 81; RESP 22; O2SAT 94
[2016-09-03 07:14] LABS: Mean Corpuscular Hemoglobin 29.3 pg (27.0-35.0); Mean Corpuscular Volume 92.2 fL (81-100)
--- NOTE | 2016-09-03 07:33 | NUR ---
Critical lab Ghassan stratton hospitalist day shift r/t critical lab value [id number] and creat 6.81
--- NOTE | 2016-09-03 07:42 | PCM.PNMED ---
Subjective Date of Service Sep 03, 2016 Subjective Patient is seen and examined with the help of a robotics testing technician. Mother, and are present in the room. He states that she does not believe that her will not regain normal function, she asks for any discussions from now on to be taken place outside the room as she feels that patient is listening to the conversations and I will make him feel more depressed. Thus, according to her, any health-related discussions should be held outside of the room the w/o including the patient also expressed frustration regarding her inability to know how she will support him at home. Exam Vital Signs Vital Sign - Last Date Time Temp Pulse Resp B/P Pulse Ox O2 Delivery O2 Flow Rate FiO2 09/03/16 05:57 38.6 81 22 145/80 94 Room Air 09/02/16 11:17 2.00 08/28/16 08:40 30 Intake and Output 09/02/16 09/02/16 09/03/16 Cumulative From/Thru 15:00 23:00 07:00 08/23/16 05:20 - 09/03/16 06:15 Intake Total 2670 ml 2995 ml 48782 ml Output Total 1640 ml 2500 ml 35337 ml Balance 1030 ml 495 ml 7639 ml Intake Oral 0 ml 10 ml IV Total 1519 ml 1629 ml 23782 ml Tube Feeding 911 ml 766 ml 6679 ml Tube Irrigant 240 ml 600 ml 1720 ml Output Urine Total 1200 ml 2400 ml 83462 ml Stool Total 440 ml 100 ml 4090 ml Gastric Drainage Total 1070 ml Ultrafiltrate 4700 ml # Bowel Movements 11 Exam Gen.: Sleeping soundly mildly diaphoretic, but verbally nonresponsive Heart: Regular rate and rhythm no S3-S4 sounds Lungs: Apneic sounds, no wheezing anteriorly Neurological: Patient is responding to pain and light. Negative Babinski's, Achilles reflexes equal and symmetric. Not fully following commands, did not squeeze hands Abdomen: Soft nontender nondistended, normal bowel sounds Extremities: Without edema, no purposeful movement Psychiatric: Negative for anxiety and then agitation IVs and Medications Medications Reviewed: Medications were reviewed in detail Lab and Diagnostics Laboratory Tests Test 09/03/16 01:12 09/03/16 06:00 09/03/16 10:42 Urine Color Straw (YELLOW) Straw (YELLOW) Urine Appearance Hazy (CLEAR,HAZY) Hazy (CLEAR,HAZY) Urine pH 6.0 (5.0-8.0) 6.0 (5.0-8.0) Urine Specific [place] 1.012 (1.003-1.035) 1.010 (1.003-1.035) Urine Protein Tracemg/dL (NEG,TRACE) Negativemg/dL (NEG,TRACE) Urine Glucose (UA) Negativemg/dL (NEGATIVE) Negativemg/dL (NEGATIVE) Urine Ketones Negativemg/dL (NEGATIVE) Negativemg/dL (NEGATIVE) Urine Occult Blood Moderate (NEGATIVE) Negative (NEGATIVE) Urine Nitrite Negative (NEGATIVE) Negative (NEGATIVE) Urine Bilirubin Negative (NEGATIVE) Negative (NEGATIVE) Urine Urobilinogen Normalmg/dL (NORMAL) Normalmg/dL (NORMAL) Urine Leukocyte Esterase Negative (NEGATIVE) Negative (NEGATIVE) Urine RBC 3-10/hpf (0-2) 0-2/hpf (0-2) Urine WBC 0-5/hpf (0-5) 0-5/hpf (0-5) Urine Epithelial Cells Occasional/hpf (NONE-MOD) Occasional/hpf (NONE-MOD) Urine Crystals None seen (NONE SEEN) None seen (NONE SEEN) Urine Bacteria Few/hpf (NONE-FEW) None/hpf (NONE-FEW) Urine Hyaline Casts None/lpf (NONE) None/lpf (NONE) Urine Granular Casts None seen (NONE SEEN) None seen (NONE SEEN) Urine Waxy Casts None seen (NONE SEEN) None seen (NONE SEEN) Urine Red Blood Cell Casts None seen (NONE SEEN) None seen (NONE SEEN) Urine White Blood Cell Casts None seen (NONE SEEN) None seen (NONE SEEN) Urine Mucus Present (None Seen) None seen (None Seen) Urine Trichomonas None seen (NONE SEEN) None seen (NONE SEEN) Urine Yeast None (NONE SEEN) None (NONE SEEN) Urinalysis Comment None None Urine Culture Reflexed Not indicated Not indicated White Blood Count 18.1th/mm3 (3.8-10.1) Red Blood Count 3.72mil/mm3 (4.40-5.80) Hemoglobin 10.9g/dL (13.8-17.2) Hematocrit 34.3% (41.0-50.0) Mean Corpuscular Volume 92.2fL (81-100) Mean Corpuscular Hemoglobin 29.3pg (27.0-35.0) Mean Corpuscular Hemoglobin Concent 31.8% (32.0-37.0) Red Cell Distribution Width 13.7% (12.3-15.4) Platelet Count 233bil/L (150-400) Sodium Level 146mEq/L (134-144) Potassium Level 4.8mEq/L (3.5-5.2) Chloride Level 110mEq/L (97-108) Carbon Dioxide Level 19mmol/L (18-29) Blood Urea Nitrogen 118mg/dL (6-24) Creatinine 6.81mg/dL (0.76-1.27) Estimat Glomerular Filtration Rate 10mL/min (>59) Glucose Level 125mg/dL (60-99) Calcium Level 8.6mg/dL (8.5-10.1) Total Bilirubin 0.3mg/dL (0.0-1.2) Aspartate Amino Transf (AST/SGOT) 61U/L (0-50) Alanine Aminotransferase (ALT/SGPT) 145U/L (0-44) Alkaline Phosphatase 70U/L (25-150) Total Protein 6.2g/dL (6.4-8.4) Albumin 2.7g/dL (3.4-5.0) Microbiology 09/02/16 Blood Culture - Preliminary, Resulted NO GROWTH AFTER 24 HOURS 08/29/16 C. difficile DNA Amplification - Final, Complete 08/24/16 Sputum Quality Screen - Final, Complete 08/24/16 Sputum Culture - Final, Complete LIGHT NORMAL OBI PRESENT 08/31/16 Culture & Sensitivity - Final, Complete No growth. Result Diagram: 09/03/16 0600 09/02/16 1030 Microbiology Blood cultures pending MRSA swab pending X-Rays, CTs and MRIs 08/23/16 PROCEDURE: CT BRAIN WITHOUT CONTRAST ([id number]) IMPRESSION: No acute disease. 08/23/16 PROCEDURE: X-RAY CHEST ONE VIEW, PORTABLE ([id number]) IMPRESSION: Endotracheal tube appropriate in position. No focal infiltrate or abnormality is seen in the lungs. Additional Diagnostics ABG DateTimeAnalyzed 10:20:00 -_ pH ____7.354 - 7.350 7.450 pCO2 ___31.5__ -mmHg 35.0 45.0 pO2 160 -mmHg 69.0 116 HCO3- ___17.1__ -mmol/L 22.0 26.0 FIO2 ___45.0__ -% PRVC 20 - PEEP ____8.0__ -cmH2O Assessment & Plan Santiago Ann is a 41 year old male with no known past medical history who came in unresponsive after being found with vomit around him, sedated and intubated for acute hypoxemic respiratory failure secondary to aspiration for 5 days and extubated on hospital day 6 following successful spontaneous breathing trial. He remains awake and severally limited in ability to move proximal/axial muscles. Anoxic Brain Injury, present on admission, active Secondary to aspiration and intoxication. Patient has had large volume of vomit suctioned out in the ED. EEG shows evidence of slowing but no other abnormalities to suggest that the patient is having clinical seizures causing his symptoms. There is significant metabolic dysfunction. This will require a lot of work for rehab. It's uncertain how much recovery can be had. - Intubated on 08/23/16, Extubated on 08/28/16 - Zosyn stopped per ID recommendation. - ICU, Infectious disease, Palliative care, neurology and nephrology - CT and MRI head results as above. - Continue tube feeds. - Physical Therapy, Occupational therapy and Speech eval when appropriate. -- Swallow therapy came couple of times by patient was sleeping, and unable to examine him - Palliative care has not yet met with the patient's family again as they feel that the right has asked in the past for everything to be done - Neurology recommends repeat EEG to for comparison. I called Dr. guillaume on who has read the follow-up EEG, he feels that there has been an improvement even though he is remarkable for encephalopathy due to anoxic brain injury versus infectious etiologies. He feels that there might be some improvement in patient's status though he will never regain his previous functional status. Patient's seems to be thinking that patient will get back to his normal life, informed Dr. guillaume of this. He says he will see the patient this evening and will discuss case with them. I called Dr. guillaume again on 09/03/16 at 50 point he mentioned to me that small improvement in patient's mental status of positive, but patient will not return to his baseline function and physical abilities. I conveyed this to the family, states that she does not believe that her would not be fully functionally back to normal. She says she believes in the power of positive thinking. She is also concerned about how to support him with any ongoing rehabilitation efforts at home, she asks about health-related discussions to be taken place outside of the room since the patient will not be included in such discussions. She feels that this discussions might make her depressed, and he will be less likely to participate in his rehabilitation efforts. Leukocytosis, present on admisson, active -- Patient has new leukocytosis and is febrile on 08/28/16 after previous resolution. On 09/03 his wbc=18.1 - Antibiotics stopped as patient has had 7 days of zosyn. - Case discussed with the Dr. Lopez this after noon as patient is having increasing leukocytosis, continued fevers, chest x-ray showed considerable consolidation versus aspiration pneumonia -- Placed patient on ertapenem, micafungin after drawing repeat blood cultures -- UA is pending -- Pro-calcitonin is trending down, 0.38 -- Called lab blood HIDA scan, there is saying that patient needs to be able to lay flat without moving his abdomen for up to an hour, but considering a follow- up CT scan instead to see if this is causing his fevers, though this seems to be unlikely given his normal bilirubin lack of nausea vomiting Metabolic Acidosis, present on admission, active Likely secondary to lactic acidosis and uremia - Monitor CMP Rhabdomyolysis, present on admission, [place] [address]. Likely secondary to being in one position for 9 hours. Patient has large erythematous regions at pressure points of sacrum and upper thorax with open wound at sacrum. - Wound care consult Acute Kidney Injury, present on admission, active Cr on admission at 3.52 and increasing after admission. Unknown history of kidney injury. - Nephrology (Dr. Haynes) currently following case. Hemodialysis done daily since 08/25/16 till 1-2 days ago. No longer an hemodialysis currently is catheter is removed - Nephrology has a good hydration with IV fluids, initially the patient may improve with considered a management, if he does not he will have to get us another dialysis catheter clear future dialysis appreciated that time and recommendations --Nephrology culture the dialysis catheter tip. This showed no growth to date -- Patient is not currently receiving dialysis Hyperkalemia, present on admission, resolved - Continue to monitor Elevated Liver Function Tests, present on admission, improving Likely due to chronic alcohol use - Currently trending down - Continue to monitor -- GB finding Alcohol dependence -Patient currently sedated no need to institute CIWA protocol at this time Drug dependence -Patient is a known user of cocaine and ice -Per family, last known use is around 5 months ago. Acetaminophen for mild pain when necessary. Bowel regimen Senna and MiraLAX scheduled and PRN. Zofran when necessary for nausea and vomiting. SubQ heparin for now. SCDs in place. Social: Patient is an undocumented immigrant. However he may be eligible for Emergent Alien Inpatient resources. He may not have resources for outpatient care. Family does not seem to be understanding of his prognosis, is expecting that he would recover completely. We will continue discussions. Palliative care Disposition: Likely here for > 2 midnights. Dependent upon anoxic brain injury. GI Prophylaxis: Not indicated (Patient extubated) VTE Mechanical Devices: Intermittant Pneumatic CD Resuscitation Status: CPR: Attempt Resuscitation Time spent 30 minutes Minerva Wilson DO Sep 03, 2016 07:16
[2016-09-03 08:28] VITALS: BP 124/73; PULSE 85; RESP 15; O2SAT 95
[2016-09-03] MEDS: Thiamine Inj 200 MG in Dextrose 5% 50 ML IV SCH (08:34)
[2016-09-03] MEDS: AMANTADINE 10 MG/ML TUBE SCH (08:34)
[2016-09-03] MEDS ORDERED: 0.9% Sodium Chloride 1,000 ML IV ONE (09:10)
--- NOTE | 2016-09-03 09:12 | NUR ---
Inpatient Wound Nurse Patient seen for follow up assessment of thoracic spine at scapular plane wound and gluteal wound. Thoracic spine wound measures 6 cm L x 10 cm W x no measurable D. Medial thirds have epithelialized to pink tissue, midline third crusted, dark maroon flakes that bleed easily when pulled off with cleansing. Edges otherwise adhered, no evidence of infection. Periwound warm, normal skin color, patient is febrile. Wound was cleansed, blotted dry, then covered with Adaptic and Mepilex foam sheet. This dressing should be changed every other day by nursing staff. Gluteal wounds: L gluteal wound measures 2 cm L x 2 cm W x 0.1 cm D. R gluteal wound measures 9 cm L x 13 cm W x 0.1 D; beefy red tissue appears as deroofed blisters that bleeds easily. Edges well adhered, small amount of barrier ointment applied prior to todays CWON visit was not thoroughly removed due to patient's intolerance of side-lying position. Two wadded and rolled bordered sacral Mepilex were removed from patient's intergluteal fold area. Wounds were lightly cleansed, blotted dry, then covered with Adaptic and Mepilex foam sheet. Patient has Espinoza catheter and fecal containment system, and so, incontinence is not likely a contributing factor to perineal skin breakdown. Therefore, barrier ointment is probably not needed. If wounds are covered with Adaptic and non-bordered Mepilex foam dressing sheet, these should be adequate to provide moist wound healing and protect wound from further deterioration. They can be changed as frequently as needed, at least daily, by nursing staff.
--- NOTE | 2016-09-03 10:18 | NUR ---
Palliative care note D/A: Please note that Palliative Care provider had signed off case as of 08/28/16. Family expressing clear goals at that time. Sade Guerrero MSW, discussing with pt medical team to see if they would see a benefit from PC getting involved again. P: Palliative care currently signed off, may re-engage again with pt family, dependent on wishes of medical team. Genet NANCE, CCM
--- NOTE | 2016-09-03 10:24 | NUR ---
UA Urine sample collected and sent to lab as ordered.
--- NOTE | 2016-09-03 10:25 | NUR ---
Wound care Wound care nurse this morning and changed mepiplex on the bottom and upper back. turning and repostioning every 2 hours. new orders per nephrology for normal saline bolus, running as ordered, flush volume 250cc every 6 hours. spouse aware.
[2016-09-03 11:14] LABS: APPEARANCE,URINE HAZY (CLEAR,HAZY); COLOR,URINE STRAW (YELLOW); OCCULT BLOOD,URINE NEGATIVE (NEGATIVE); UROBILINOGEN,URINE NORMAL (NORMAL)
--- NOTE | 2016-09-03 11:21 | NUR ---
speech therapy speech therapy came to see patient. patient resting quietly with eyes closed and therapist will be back per statement.
--- NOTE | 2016-09-03 11:23 | NUR ---
NS bolus NS bolus give as ordered. No sign and symptoms of respiratory distress or cardiac discomfort noted. 1/2 NS at 150ml/hour continued as ordered by Dr. Haynes.
--- NOTE | 2016-09-03 11:50 | NUR ---
Social Work: Continued d/c planning / multidisciplinary rounds Data: Pt is on day 11 of hospitalization. EMR reviewed, pt discussed in rounds. MD states pt will likely remain in the hospital for days, MD plans to meet with pt and family today to discuss goals of care for pt. Currently pt's family continues to want to pursue treatment. OFFICE MACHINES SALES REPRESENTATIVE will continue to follow post discussion with MD of goals of care and d/c planning needs. PT recommending SNF at this time for pt. Pt has [employer] insurance which will not cover SNF for pt. [employer] does cover dialysis, if family desires d/c home with dialysis. All other options are private pay. OFFICE MACHINES SALES REPRESENTATIVE will continue to follow. Assessment: Pt who is independent at baseline, currently not capable of self care and anticipated to never be capable of self care in the future. Plan: OFFICE MACHINES SALES REPRESENTATIVE will follow up post MD discussion with family regarding goals of care. OFFICE MACHINES SALES REPRESENTATIVE will follow for possible hospice / palliative / dialysis / private pay caregiving / d/c planning needs. JEFF Ayon
--- NOTE | 2016-09-03 15:08 | NUR ---
FMS patent. Addendum: 09/03/16 at 1510 by JOE FLORENCE RN Amended: Links added.
--- NOTE | 2016-09-03 15:08 | NUR ---
Alexis patent Addendum: 09/03/16 at 1510 by JOE FLORENCE RN Amended: Links added.
--- NOTE | 2016-09-03 15:09 | NUR ---
bed rest Addendum: 09/03/16 at 1510 by JOE FLORENCE RN Amended: Links added.
--- NOTE | 2016-09-03 15:09 | NUR ---
Tube feedings 65cc/hour with 240cc flush Q6 hours. Addendum: 09/03/16 at 1510 by JOE FLORENCE RN Amended: Links added.
[2016-09-03 15:17] VITALS: BP 131/76; PULSE 78; RESP 16; O2SAT 94
--- NOTE | 2016-09-03 15:20 | NUR ---
Therapy Physical and occupational therapy at bed side for therapy.
--- NOTE | 2016-09-03 16:00 | PCM.PNNEPH ---
Subjective Date of Service Sep 03, 2016 Subjective Last HD 08/30/2016. Continues to have persistent fevers, WBC continues to trend up. Creatinine now trending up, BUN continues it's upeard trend. EEG suggests mild to moderate cerebral cortical dysfunction/encephalopathy most likely secondary to anoxic brain injury. Overnight patient continues to have fevers, taken off supplemental O2 Today: Patient minimally responsive, said to be sleeping though is responsive to painful stimuli. Other will not or cannot follow commands. Exam Vital Signs Vital Sign - Last Date Time Temp Pulse Resp B/P Pulse Ox O2 Delivery O2 Flow Rate FiO2 09/03/16 15:17 37.5 78 16 131/76 94 Room Air 09/02/16 11:17 2.00 08/28/16 08:40 30 Intake and Output 09/02/16 09/02/16 09/03/16 Cumulative From/Thru 15:00 23:00 07:00 08/23/16 05:20 - 09/03/16 06:15 Intake Total 2670 ml 2995 ml 94344 ml Output Total 1640 ml 2500 ml 72380 ml Balance 1030 ml 495 ml 7639 ml Intake Oral 0 ml 10 ml IV Total 1519 ml 1629 ml 43265 ml Tube Feeding 911 ml 766 ml 6679 ml Tube Irrigant 240 ml 600 ml 1720 ml Output Urine Total 1200 ml 2400 ml 19240 ml Stool Total 440 ml 100 ml 4090 ml Gastric Drainage Total 1070 ml Ultrafiltrate 4700 ml # Bowel Movements 11 Exam General: Lying in hospital bed, responsive to painful stimuli. Not following commands and appears to be sleeping/difficult to arouse HEENT: Normocephalic, atraumatic. Pupils equal, round, and reactive to light and accommodation. Dry oral mucosa. Neck: No jugular venous distension. Cardiovascular: Regular rate and rhythm with no murmurs, rubs, or gallops appreciated Pulmonary: Clear to auscultation bilaterally with no crackles, wheezes, or rhonchi. Normal respiratory effort with no use of accessory muscles. Abdomen: Bowel tones present. Soft, nontender, nondistended. No rebound tenderness, no rigidity and no guarding. Extremities: No clubbing, cyanosis, edema Skin: Warm to palpation with normal turgor, no rash IVs and Medications Medications Reviewed: Medications were reviewed in detail Lab and Diagnostics Result Diagram: 09/03/16 0609/03/16 0600 Microbiology Blood cultures pending MRSA swab pending X-Rays, CTs and MRIs 08/23/16 PROCEDURE: CT BRAIN WITHOUT CONTRAST ([id number]) IMPRESSION: No acute disease. 08/23/16 PROCEDURE: X-RAY CHEST ONE VIEW, PORTABLE ([id number]) IMPRESSION: Endotracheal tube appropriate in position. No focal infiltrate or abnormality is seen in the lungs. Additional Diagnostics ABG DateTimeAnalyzed 10:20:00 -_ pH ____7.354 - 7.350 7.450 pCO2 ___31.5__ -mmHg 35.0 45.0 pO2 160 -mmHg 69.0 116 HCO3- ___17.1__ -mmol/L 22.0 26.0 FIO2 ___45.0__ -% PRVC 20 - PEEP ____8.0__ -cmH2O Plan Impression Impression 1. Acute kidney injury secondary to rhabdomyolysis. Requiring daily HD x 6, - 08/30, catheter removed. Urine output remains high approximately 2.5-3 L per day, BUN continues to elevate and GFR remains at about 10. This is most likely secondary to recovery phase of acute tubular necrosis, however BUN continues to trend upward suggesting persistence of the maintenance phase. 2. Hypernatremia, free water deficit calculated at 2.5 L. Total fluid net positive. 3. Rhabdomyolysis, improving. 4. Persistent fevers. 5. Acute hypoxic respiratory failure, resolved. 6. Anoxic brain injury. 7. Acute transaminitis. 8. Cholelithiasis suspected acute cholecystitis. 9. Polysubstance abuse. Plan: Plan: Continue 1/2 NS 150 ml/hr Continue to monitor BMP Creatinine has started downward trend, however if cr worsens, in urinary output significantly decreases he may need another cath placement for HD Continue to monitor kidney function and urine output on a daily basis Avoid Nephrotoxins, and adjust medication according to estimated GFR. Consider HIDA scan as abdominal ultrasound showed mild gallbladder wall thickening. Acute cholecystitis cannot be excluded. DORA RIVAS DO Sep 03, 2016 16:00
[2016-09-03] MEDS: Ertapenem Inj 500 MG in 0.9% Sodium Chloride 50 ML IV SCH (20:37)
--- NOTE | 2016-09-03 20:40 | NUR ---
Treatment update MD in with use of per diem interpreter discussed with patients and his mother current prognosis and plans of treatment became upset and wanted for future discussions to be held outside of room with no negative news being brought up in front of patient also really wants to feed remedies "found on line" so speech needs to wake patient if need be. Also wanting SW to provide more information on outpt options for care and therapies, & I agree to pass on to days.
[2016-09-03 21:00] VITALS: BP 133/77; PULSE 88; RESP 22; O2SAT 96
[2016-09-03] MEDS: Micafungin Inj 100 MG in 0.9% Sodium Chloride 100 ML IV SCH (21:21)
[2016-09-04] MEDS: Heparin 5,000 Unit/mL Inj SUBQ SCH ×3 (01:12→16:51)
[2016-09-04 06:20] VITALS: BP 136/70; PULSE 77; RESP 22; O2SAT 96
[2016-09-04 06:38] LABS: BASOPHILS % (AUTO) 0.2 % (0-3); EOSINOPHILS % (AUTO) 1.7 % (0-5); MONOCYTES % (AUTO) 6.2 % (4-12); Mean Corpuscular Volume 92.2 fL (81-100); NEUTROPHILS % (AUTO) 79.2 % (40-74); Platelet Count 199 bil/L (150-400)
[2016-09-04] MEDS: AMANTADINE 10 MG/ML TUBE SCH (08:38)
[2016-09-04] MEDS: Thiamine Inj 200 MG in Dextrose 5% 50 ML IV SCH (08:39)
[2016-09-04 09:13] LABS: Bilirubin, Direct 0.2 mg/dL (0.0-0.3)
--- NOTE | 2016-09-04 09:54 | NUR ---
Tube feed Patient scheduled to have HIDA scan at 1400 today. Tube feed flushed and disconnected at 0950 per Nuc Med.
[2016-09-04 10:28] VITALS: BP 134/81; PULSE 88; RESP 20; O2SAT 96
--- NOTE | 2016-09-04 11:49 | NUR ---
Social Work- Continued D/C Planning/Multidisciplinary Rounds Data: EMR reviewed. Pt is on day 12 of hospitalization for anoxic/brain injury per H&P. Pt discussed in rounds. Medical team is having a meeting with family today at 1300. SW asked to look into [facility] hospice coverage and [facility] hosp[facility] options. [facility] to get an idea of options. Pt and family have not elected hospice at this time and will be given a hospice choice. No pt information shared over the phone. No hospice order has been received. [facility] states that there is no hospice benefit through [facility] but [facility] has a foundation which may be able to cover pt's hospice care if necessary. Pt will still require a hospice order and financial review for eligibility. Discussed this with Hospitalist and Palliative Care ADJUNCT WRITING INSTRUCTOR Genet. SW will continue to follow. Assessment: Pt who is independent at baseline, currently not capable of self care and anticipated to never be capable of self care in the future. Plan: ADJUNCT WRITING INSTRUCTOR will follow up post Medical Team discussion with family regarding goals of care. ADJUNCT WRITING INSTRUCTOR will follow for possible hospice / palliative / private pay caregiving / d/c planning needs. JEFF Arevalo
--- NOTE | 2016-09-04 12:46 | NUR ---
Palliative care note D/A; Case discussed with Dr. Wolfe today. There is a 1:00 hand shaper planned for today so that this worker, Dr. Wolfe and perhaps Dr. Wilson can meet with pt spouse and pt mother. Spouse has requested that discussions not take place in front of pt. Have also arranged for 1:30 pm hand shaper service for tomorrow 09/05/[address] Wolfe to meet with family. Attempting to arrange for larger meeting of Dr. Mcmahan and family so that he can explain about pt brain function and assist them in understanding pt current condition. Dr. Mcmahan about to meet with family tomorrow at noon but hand shaper services not available. Dr. Wolfe has texted Dr. Mcmahan, awaiting potential times for next week. Pt with [facility] insurance only which mainly pays for acute care. There are a few slots for SNF coverage for [facility]-in the past there has been a long wait list. Per discussion today with nephrology, pt is now off dialysis for 4 days and appears that he will most likely not need dialysis moving forward. Pt continues with tube feed. Even if family agrees to no code, pt will still need placement with current potential options; 1. home with family. Unclear how tube feeds and on going medical care would be reimbursed. 2. possible SNF placement if able to get on wait list and slot becomes available. 3. Consideration of return to [place] where healthcare may be available. Above is discussed with Dr. Wolfe and Sade Guerrero as well as Ernestina SALES REPRESENTATIVE [employer], dcp. P: Palliative care to follow. Genet NANCE, [facility] Addendum: 09/04/16 at 1427 by SCOTTY GARRISON Palliative care note amendment [facility] D/A: Met with pt spouse, his sister and his mother, along with Dr. Wilson, Dr.s Wolfe and Julian Batres from hand shaper services and this worker. Both Dr. Wilson and Dr. Wolfe explained their most recent conversations with Dr. Mcmahan. Pt is noted to be making small improvements. He has been heard to be counting numbers and has spoken some sentences in relation to questions asked of him. These responses include " no", "that's ok" and "tell them not to check on me". Family is counseled that pt will need a long period of time for his potential to become more clear and a years worth of time is mentioned. Dr. Wolfe notes that pt may be bed bound for the rest of his life and may need assistance with toileting and bathing. If he is unable to eat or swallow, may need continued tube feed. Speech continues to check and monitor for his ability to begin to swallow more safely. Learn that DR. Mcmahan is able to meet with family at noon on Thursday09/08/16. Phone call to [employer] and able to schedule a 1200 hand shaper with Lianna. Discuss with family and encourage them to ask family members to come who may need to hear in person from the provider who is the expert in brain functioning. Briefly discuss insurance that [place] will qualify for [place] [place] and explain that it covers mainly acute care and will not cover doctor or therapy visits once he is dc'ed from hospital. Sister notes that they have a big family and that there will be contributions to assist him. This worker stays a bit past end of provider visit to inquire about well being of spouse, sister and mo. Explain need for rest, good nutrition and time away for family CG and that more assist will be needed after dc. Spouse then asks pt sister and mo what they will do to help her with pt care once he is dc'ed. She notes she will need to find a job to support her family and will need help with pt if she is at work. Strong feelings then emerge between pt sp and si. Note that this has emerged other times during hospitalization. ASk them if they have someone who can navigate their differences with them to come to some type of understanding to allow for participation/caregiving. Indication is that there is no one they can ask to assist them with communication. Si notes that she cares for pt mo (who may be returning to her home country?) and she also cares for her bro (age and health/cognitive status unknown. P: Palliative care to follow. Genet NANCE, CCM
--- NOTE | 2016-09-04 12:54 | PCM.PALLBR ---
Palliative Care Recommendation Summary of palliative recommendations: -Symptom management (Pain/other): per attending -DPOA/Advanced Directives/POLST: 1. FULL Code 2. is designated decision maker. 3. No prior paperwork for AD or POLST. -Family/emotional support: strong support from large, local family. -Spiritual support: family is Rastafarian and the culture of Catholicism and regular mass attendance is part of their life. They don't want a lacemaker to visit at this time as they feel, if the patient knew he would panic and think he is dying. Patient/Family Goals: specific boundaries on care not discussed. At this time, family desires all possible interventions to help pt get back to his baseline health. 09/04: Drs. Wolfe and Gisel met with and leather tanner in a.m. to re- introduce the PC team and examine her . After exam, we offered sympathetic listening and support. We asked to meet with her and pt's mother at 1pm today. She consented. We met again, outside pt's room in a separate consult room at her request. She is worried that her can understand our conversation and would be discouraged by any bad news. Present were: Drs. Wolfe, Gisel, Steve, leather tanner, Genet George (), and Stella, pt's sister Guillermina and his mother Cyndi. Dr. Wilson gave a brief medical update, acknowledging to the family that pt has shown small signs of improvement, but she is very cautious about what this means for him. Dr. Wolfe gave news from Dr. Haynes that pt's kidneys are improving enough that he will likely not need any more dialysis. . 1. We gently explained to family that Santiago's brain injury is going to be a long, slow process of waiting and helping him before we know what he will be able to do for himself. 2. Dr. Wolfe told them that he may not be able to get out of a bed, that he may not be able to eat, bathe, dress on his own, that he may not be able to be aware of when he needs to use the bathroom. Someone will have to take care of him for all these things, and it will probably be a year before the neurology doctors can give a better idea of how much self-care he can recover. 3. His asked about his speaking abilities. He does speak at times, and it seems to be clear speech and meaningful when it occurs. Dr. Wilson says she will ask Dr. Mcmahan about this, as we don't know how much speaking ability or thinking ability he will recover. 4. We invited family to a meeting Thursday with all of us and Dr. Mcmahan, which gives us more time to observe Santiago tomorrow and over the weekend- -as well as giving the family members who work time to try to arrange to get off for this meeting. 5. We offered supportive listening and answered questions. Please see Ms. George's SW note from re: additional information on family responses today. 6. We have arranged a 1:30 pm leather tanner service for tomorrow 09/05/[address] Wolfe to meet with family again for support. 08/27: Dr. Wolfe met with , mother and 3 other family members in room at pt' s bedside with [place] speaking leather tanner. She gave them the CCU plan for the day and answered questions. 08/26 Family Conference Team Meeting (FCTM): On Hospital Day 4 Palliative Care had an initial meeting with family to gather background information about the pt and give a medical update compiled by the Attending hospitalist team through a [place] Speaking Unix Administrator. We met with family at length. This included pt mother Cyndi, sister Guillermina, nephew Paresh, cousin Sina and his spouse Jacquelyn and patient's spouse Elise Douglas (leather tanner services), Genet George (), Hazel Wolfe, and Jyotsna--all from [facility] Team-- and Dr. Rodriguez ([facility] hospitalist guest service team leader). Stella notes that she and pt have three children; Santiago Sánchez (13), Zofia (8) and Radha (6). Discussed at length pt current condition and answered questions about medical issues. Dr. Hastings explained that neurological workup is ongoing and outcome is not clear. Dr. Wolfe went over treatments being used to care for pt's lungs and kidneys. 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 He is proud of his capabilities and has learned his skills on the job. Family is Rastafarian and is part of the pentecostal at [employer] in [place]. Pt enjoys his children and is noted to be a good father. He is described as someone that others esteem and look up to, someone others love, he thinks about the future of his children and plans for them and is a hard worker. Pt has long struggled with depression. He has felt sad that he was raised by his grandmother and for reasons that are unclear, not by his parents. He longed to have a family of his own so that he could be a positive influence and offer parental love and support for his children that he feels he didn't receive. He has disclosed to his spouse and sister that he had depression and at times wished that he had not been born. Family does not think that current episode was a suicide attempt. Pt comes from a family of heavy drinkers and has used drugs and ETOH at baseline, and more so in recent days prior to this hospitalization. Sister feels that pt was not setting a good example for his children with his use of drugs and ETOH. Spouse disclosed pt feelings of depression and sadness and this was very difficult for her to discuss this in front of pt's family. Pt sister expressed support for her to disclose, indicating that this needs to be talked about in order for pt to get the help that he needs. Patient's mother Cyndi, became upset and had to leave the room early and it appeared that she was not aware of some of the family issues brought forward by the and sister today. Family assured by team and leather tanner that this information about family issues , depression, drinking is confidential and medical team only uses information to help monitor pt's health. For example, as a result of this information, the team may be watching for signs of withdrawal from alcohol or considering start of antidepressant when Santiago is able to take po or have a feeding tube to deliver medication. Dr. Wolfe also asked family to please be aware that CCU rules are that only 2 people from family allowed in CCU room at a time, and rest of family/friends must wait in 2nd floor public waiting areas outside CCU. Problems: Resuscitation Status Resuscitation Status: CPR: Attempt Resuscitation POLST Updates/Changes Previous POLST?: No Total time 65 minutes; >50% face to face with patient and/or family, providing counselling regarding plans and recommendations, and in care coordination with his/her medical teams. I also spent an additional 60 minutes counseling for advanced care planning with the patient/the patients family/the surrogate decision maker. Palliative Brief Note Date of Service Sep 04, 2016 . Patient Identification Santiago Ann is a 41 year old male who presented to the ED via EMS after being found unconscious at 0430H with vomit on himself by his who last saw him well at 1900H the previous night. EMS was called and CPR instructions were given over the phone to the as the patient had abnormal breathing. She gave him CPR until medics arrived. The medics gave the patient 2 mg of Narcan IV which caused his arms to move but he continued to be unresponsive. The pt's reports no falls or trauma to the pt's head. She also states that the pt's brother has possibly had seizures in the past. She mentioned that Mr. Ann drank a bottle of tequila the night prior to admission and that he frequently drinks alcohol. He has had no prior episodes like this. In the ED, vomit was suctioned out of the throat, and he was intubated. CT showed no acute disease and chest x-ray was unremarkable .He was found to be hyperkalemic and acidotic on ABG. Urine Tox in the emergency department showed evidence of cocaine. Hospital Course: He was admitted on 08/23 from ED to the CCU for further management. He developed acute tubular necrosis secondary to rhabdomyolysis and is being followed by Nephrology and received his first dialysis treatment 08/25 for rising creatinine related to elevated CKs. Dr. Lopez has been treating him for possible aspiration pneumonia. The patient has continued to be unresponsive. An EEG done yesterday while the patient was on propofol showed slowing at approximately 6 hertz but no epileptiform abnormalities and no evidence of subclinical seizures to explain his coma state. Head CT was normal, but 2nd head CT completed on August 25 showed evidence of what appeared to be basal ganglial or globus pallidus hyperdensities. There were no other signs to suggest edema. A neurology consultation was requested when the patient failed to improve and continued to show suggestion of brainstem dysfunction with doll's eyes and inability to breathe on his own off the respirator. He has, however, remained on propofol which has been tapered but not completely due to the evidence of bronchospasm at times according to nursing staff. Significant for his neurological examination, the propofol has been stopped. Off propofol there was some voluntary movement of his eyes and facial response to familiar voices. On 08/26, neurology consultant luxury and auto. vice president [employer] (ex ) counseled family that he likely has had some anoxic injury but it is yet unclear how much, that we will have to monitor this over time. He got his #3 dialysis treatment; he is still anuric and his creatinine remains 6.9, total CK 12,000, down from 31,000 on admission.Gradually , he began producing urine again and was extubated several days ago. His last dialysis was on 08/30. His dialysis catheter was removed after dialysis that day and cultured to look for infection. Today 09/04 is Hospital Day 13, Dr. Haynes has told Dr. Wilson ([facility] Hospitalist) and PC team that she thinks pt will not need to receive more dialysis as his kidney function has been slowly improving. Subjective: Pt unable to participate in interview or family discussions due to anoxic brain injury. Drs. Wolfe and Gisel met with and leather tanner at his bedside this morning to re-introduce the PC team and examine her . We asked her whether she thought her was having pain. She said she asked him last night whether he wanted a tylenol, and he said "no"--and she assumes from that he has no pain. No medical staff have observed him speaking yet, but nursing and PT have heard him say a few words when working with him. Exam: In general, he is a well nourished man, lying still in bed, arms at his sides, left hand clenched almost shut. HEENT: normocephalic, jaw firmly closed, doll's eyes on exam that could be left nystagmus with sluggish pupil reaction to light from 3mm-2mm. Dr. Wolfe pried his mouth open and then jaw relaxed a to reveal clean teeth in good repair, mucus membranes moist, tongue without lesion. NGT in left nostril with tube feeds running. Lungs: clear Heart: S1,S2, rrr Abdomen: soft,nondistended, nontender, +bowel sounds in all 4 quadrants. Extremities: no edema. legs, arms are stiff, tonic. Neuro: He does not respond to any verbal commands. His hands are motionless when asked to squeeze examiner's fingers. Sensation: He withdraws to noxious stimuli symmetrically. Imaging: Date of Service: 08/28/16 1202 MRI BRAIN WITHOUT CONTRAST INDICATIONS: anoxic brain injury FINDINGS: Image quality: Excellent. CSF Spaces: Basal cisterns are patent. No extra-axial fluid collections. Ventricles are normal in size and shape. Brain: No intracranial masses or hemorrhage. Isaacs/white matter interface is normal. Brainstem appears normal. Diffusion-weighted images restricted diffusion in the globus pallidi bilaterally as well as the deep white matter of the frontal, parietal and occipital lobes. No chronic ischemic insults. Normal intravascular flow voids are present. Skull and face: Calvarium has normal marrow signal. Orbits appear normal. Sinuses: Sinuses and mastoids are clear. 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 Approved by: Jacob Mosqueda M.D. on 08/28/2016 at 19:42 Marly Wolfe MD Sep 04, 2016 12:54
--- NOTE | 2016-09-04 13:28 | NUR ---
Social Work- Update Note Pt discussed with [facility] JEFF. Meeting with family today at 1300. Pt with [employer] insurance only which pays for acute health care. CHANDELIER MAKER informed that there are a few slots for SNF coverage for entire state of [place] with a long wait list. CHANDELIER MAKER requested assistance from UR Specialist Jailyn to research [facility] SNF benefit and wait list requirements. Per Nephrology, pt will likely not need dialysis moving forward. Pt continues with tube feed. Pt will still need placement with current potential options; 1. home with family. Unclear how tube feeds and on going medical care would be reimbursed. 2. possible SNF placement if able to get on wait list and slot becomes available. 3. Consideration of return to [place] where healthcare may be available. UR Specialist and CHANDELIER MAKER to work on [facility] SNF benefit eligibility. SW will continue to follow. JEFF Arevalo Addendum: 09/04/16 at 1402 by JAILYN BYRD Found contact information for the [facility] Funded LTC program [email or web address] Advised CHANDELIER MAKER.
--- NOTE | 2016-09-04 14:00 | NUR ---
Off floor Patient left floor at 1400 to [place] for HIDA scan. WHITNEY BOWERS. accompanied pt. Vitreo Retinal Surgeon present. Addendum: 09/04/16 at 1642 by ARACELIS YOU RN Pt returned to floor at 1640
--- NOTE | 2016-09-04 14:08 | NUR ---
NUTRITION FOLLOW UP: ASSESS: 41 YO male admitted to CCU after pt found unresponsive. Pt with aspiration pneumonia and rhabdomyolysis and likely anoxic brain injury. Pt was extubated 08/28. He continues to have acute encephalopathy and remain NPO. TF are currently off today and pt was scheduled for a HIDA scan. Pt had been tolerating TF well at goal rate. BUN / Cr remain elevated but are trending downward today, nephrology continues to follow. Palliative care has been reconsulted. PMHx: ETOH abuse. DIET: NPO. NUTRITION SUPPORT: Nepro at 65 mL/hr to provide 2691 kcal and 121 g protein per day-on hold for HIDA scan today. H2O flushes of 250 ML every 6 hours with IV fluids at 150 mL/hr. LABS: Reviewed. Na 142, K+ 4.7, BUN 104, Cr 5.7, Glu 110, AST 54, ALT 120, Alb 2.5, Lipase 763. MEDICATIONS: Reviewed. GI: FMS in place: 300 mL output (09/04) SKIN: Wound care following. Stag 2 PU on sacrum and thoracic spine. ANTHROPOMETRICS: Current Wt: 98 kg. Admit wt: 95.1 kg. IBW: 72.7 kg ESTIMATED NEEDS (Renal, wounds, BMI) Calories: 5470-7396 kcal/day (22-25 kcal/kg BW) Protein: 110-130 g protein (1.5-1.8 g/kg BW IBW) Fluid: Approx. ~2600 mL (25mL/kg BW) or per nephrology recommendations NUTRITION DIAGNOSIS: 1) Inadequate oral intake related to inability to consume sufficient energy due to cognition, as evidenced by NPO status - PERSISTS. 2) Increased nutrient needs related to ESRD and increased demand for healing as evidence by need for dialysis and pt with stg 2 PU on sacrum and thoracic spine - PERSISTS. INTERVENTION: 1) Recommend restarting TF once appropriate after procedure has been completed if consistent with pt POC. MONITOR/EVALUATE: Enteral feeding, labs, weights, GI/nutrition status. Follow per moderate nutrition risk guidelines.
--- NOTE | 2016-09-04 14:13 | PCM.PNNEPH ---
DORA ESPOSITO DO 09/04/16 1413: Subjective Date of Service Sep 04, 2016 Subjective Last HD 08/30/2016. Continues to have persistent undulating fevers, WBC continues to trend up. BUN/creatinine now trending down. Continues to have good urine output. Overnight: no fevers recorded overnight, patient's family quest future discussions regarding patient's prognosis to be held out of your shot patient Today: Patient minimally responsive, minimal eye movement to to vocal stimuli. Did not follow commands, family not present at bedside. Exam Vital Signs Vital Sign - Last Date Time Temp Pulse Resp B/P Pulse Ox O2 Delivery O2 Flow Rate FiO2 09/04/16 10:28 37.9 88 20 134/81 96 Room Air 09/02/16 11:17 2.00 Intake and Output 09/03/16 09/03/16 09/04/16 Cumulative From/Thru 15:00 23:00 07:00 08/23/16 05:20 - 09/04/16 06:43 Intake Total 2314 ml 3134 ml 22566 ml Output Total 2300 ml 3360 ml 03577 ml Balance 14 ml -226 ml 7427 ml Intake Oral 10 ml IV Total 2314 ml 1830 ml 07302 ml Tube Feeding 804 ml 7483 ml Tube Irrigant 500 ml 2220 ml Output Urine Total 2100 ml 3060 ml 85806 ml Stool Total 200 ml 300 ml 4590 ml Gastric Drainage Total 1070 ml Ultrafiltrate 4700 ml # Bowel Movements 11 Exam General: Lying in hospital bed, responsive to painful stimuli. Not following commands and appears to be sleeping/difficult to arouse HEENT: Normocephalic, atraumatic. Dry oral mucosa/ chapped lips Neck: No jugular venous distension. Cardiovascular: Regular rate and rhythm with no murmurs, rubs, or gallops appreciated Pulmonary: Clear to auscultation bilaterally with no crackles, wheezes, or rhonchi. Normal respiratory effort with no use of accessory muscles. Abdomen: Bowel tones present. Soft, nontender, nondistended. No rigidity and no guarding. Extremities: No clubbing, cyanosis, edema Skin: Warm to palpation, no rash IVs and Medications Medications Reviewed: Medications were reviewed in detail Lab and Diagnostics Result Diagram: 09/04/16 0545 09/04/16 0545 Microbiology Blood cultures pending MRSA swab pending X-Rays, CTs and MRIs 08/23/16 PROCEDURE: CT BRAIN WITHOUT CONTRAST ([id number]) IMPRESSION: No acute disease. 08/23/16 PROCEDURE: X-RAY CHEST ONE VIEW, PORTABLE ([id number]) IMPRESSION: Endotracheal tube appropriate in position. No focal infiltrate or abnormality is seen in the lungs. Additional Diagnostics ABG DateTimeAnalyzed 10:20:00 -_ pH ____7.354 - 7.350 7.450 pCO2 ___31.5__ -mmHg 35.0 45.0 pO2 160 -mmHg 69.0 116 HCO3- ___17.1__ -mmol/L 22.0 26.0 FIO2 ___45.0__ -% PRVC 20 - PEEP ____8.0__ -cmH2O Plan Impression 1. Acute kidney injury secondary to rhabdomyolysis. Required daily HD x 6, - 08/30, catheter removed 08/30. Urine output remains high approximately 3-4 L per day, BUN/creatinine now trending down suggesting persistence of recovery phase 2. Hypernatremia, continues to oscillate between hypernatremic and normal serum sodium. Sodium today 142 3. Rhabdomyolysis, improving. 4. Persistent fevers. 5. Acute hypoxic respiratory failure, resolved. 6. Anoxic brain injury. 7. Acute transaminitis. 8. Cholelithiasis suspected acute cholecystitis. 9. Polysubstance abuse. Plan: Continue 1/2 NS 150 ml/hr Continue to monitor BMP Creatinine has started downward trend with good urinary output. No indication for continued HD at this point Continue to monitor kidney function and urine output Avoid Nephrotoxins, and adjust medication according to estimated GFR. HIDA scan ordered and pending High care request nephrology input during family meeting to be held within the next few days regarding prognosis and indications for continued hemodialysis and return of kidney function. Alejandro Tapia MD 09/04/16 1757: Exam Lab and Diagnostics Result Diagram: 09/04/16 0545 09/04/16 0545 Plan Impression Patient was seen and examined. Agreed with Dr. Esposito' assessment and plan. He is in recovery phase of ATN. HD is not indicated at this moment. We will continue IVF replacement to prevent worsening kidney function due to prerenal azotemia. Continue 1/2NS 150 ml/hr and free water flushes 300 ml q 6 hr. Repeat BMP in am. Mo Haynes MD. DORA ESPOSITO DO Sep 04, 2016 14:13 Alejandro Tapia MD Sep 04, 2016 17:57
--- NOTE | 2016-09-04 15:45 | NUR ---
PC note amendment D/A: Note that Dr. Mcmahan is able to meet with PC team and pt family, as well as project manager on Thursday09/08/16 at noon. Have left message for marleni Victoria in regards to above. P: Palliative care to follow. Gen[facility] NANCE, CCM
[2016-09-04 17:25] VITALS: BP 141/74; PULSE 91; RESP 20; O2SAT 95
--- NOTE | 2016-09-04 18:20 | NUR ---
Temperature Pt temp 38.5 after returning from HIDA scan. Hospitalist notified. Order received for blood cultures and CT Abd/Pelvis. Tylenol will be given after blood cultures drawn.
[2016-09-04] MEDS: Acetaminophen 32.5 mg/mL 20 mL Liquid PO PRN (18:45)
--- NOTE | 2016-09-04 19:45 | DRSVH ---
PROCEDURE: CT ABDOMEN AND PELVIS WITHOUT CONTRAST ([id number]) INDICATIONS: check for abdominal source of infection, cholecyst TECHNIQUE: Noncontrast 5 mm thick sections acquired from the diaphragms to the symphysis. 5 mm coronal and sagi ttal reformats were then performed. For radiation dose reduction, the following was used: automated exposure control, adjustment of mA and/or kV according to patient size. COMPARISON: , [place] H[place] SCAN W CCK STD, 09/04/2016, 14:32. [facility]ital, [place], US ABDOMEN, 08/29/2016, 18:58. FINDINGS: Image quality: There is motion artifact limiting evaluation. ABDOMEN: Lung bases: There is a small left perfusion with consolidation in the left lower lobe suspicious for pneumonia. Mild atelectasis is present in the right lung base. There is suggestion of possible sma ll nodules in the right lung but evaluation is limited due to motion artifact. Heart size is borderl ine enlarged. Solid organs: Liver and spleen are normal in size. There is a gallstone in the gallbladder measurin g up to 2.4 cm. Evaluation for gallbladder wall thickening is limited due to motion artifact. The e xtrahepatic biliary ducts are not well evaluated due to motion artifact. Pancreas appears normal in size. There is suggestion of mild stranding along the uncinate process of the pancreas. No adrenal nodules. Kidneys are normal in size, without hydronephrosis or nephrolithiasis. There is a small hy podensity in the right kidney likely representing a cyst. Peritoneum and bowel: Small bowel loops demonstrate normal wall thickness and caliber. There is flui d within the colon with a rectal tube present. No free fluid or free air. Nodes and vessels: No retroperitoneal or mesenteric adenopathy by size criteria. Aorta and inferior vena cava are normal in caliber. Miscellaneous: No ventral hernias. PELVIS: Genitourinary: There is a Espinoza catheter within a decompressed urinary bladder. Miscellaneous: There is mild presacral soft tissue thickening. No inguinal hernias or adenopathy. Bones: No suspicious bony lesions. No vertebral body compression fractures. IMPRESSION: 1. Small left pleural effusion with left lower lobe consolidation likely representing pneumonia. 2. Cholelithiasis with probable cholecystitis due to the nonvisualization of the gallbladder on rece nt HIDA scan. 3. Nonspecific presacral soft tissue thickening. Dictated by: Bruce Valadez M.D. on 09/04/2016 at 19:35 Approved by: Bruce Valadez M.D. on 09/04/2016 at 19:44
--- NOTE | 2016-09-04 19:49 | DRSVH ---
PROCEDURE: NM HIDA SCAN WITH CCK PHARMACEUTICAL: 4.9 mCi Tc-99m mebrofenin IV; 2.0 mcg CCK IV. INDICATIONS: rule out biliary dyskinesia TECHNIQUE: Following intravenous administration of Tc-99m mebrofenin, sequential anterior abdominal images were obtained for 60 minutes with an additional 60 minutes of imaging obtained the tube nonvisualization o f the gallbladder. COMPARISON: [facility], US, US ABDOMEN, 08/29/2016, 18:58. FINDINGS: Biliary scan: There is normal tracer uptake and excretion by the liver. There is normal visualizati on of the intrahepatic ducts and common bile duct. There is normal tracer transit into the duodenum. The gallbladder was not visualized IMPRESSION: 1. Nonvisualization of the gallbladder suggesting acute cholecystitis. Dictated by: Bruce Valadez M.D. on 09/04/2016 at 19:44 Approved by: Bruce Valadez M.D. on 09/04/2016 at 19:47
[2016-09-04] MEDS: Ertapenem Inj 500 MG in 0.9% Sodium Chloride 50 ML IV SCH (20:09)
[2016-09-04] MEDS: Micafungin Inj 100 MG in 0.9% Sodium Chloride 100 ML IV SCH (20:45)
--- NOTE | 2016-09-04 20:48 | NUR ---
Wound assess MD in to assess buttock wounds per request, assisted in turning patient for exam with interpreting service MD informed wound bed doesn't appear with signs of infection, bedding changed, wound cleaned dressing changed.
[2016-09-04 21:57] VITALS: BP 130/77; PULSE 80; RESP 20; O2SAT 95
--- NOTE | 2016-09-05 00:17 | PCM.PNMED ---
Subjective Date of Service Sep 04, 2016 Subjective Patient is seen and examined, he has received a HIDA scan, and a CT scan due to concern for continued fevers. Investigated his buttock wounds as requested by his . Online artist mannequin coloring is present during the interview. Speech was able to see the patient after the third attempt and documented the findings, the patient is improving. Exam Vital Signs Vital Sign - Last Date Time Temp Pulse Resp B/P Pulse Ox O2 Delivery O2 Flow Rate FiO2 09/04/16 21:57 37.1 80 20 130/77 95 Room Air 09/02/16 11:17 2.00 Intake and Output 09/04/16 09/04/16 09/05/16 Cumulative From/Thru 15:00 23:00 07:00 08/23/16 05:20 - 09/04/16 18:49 Intake Total 2000 ml 15236 ml Output Total 2600 ml 49133 ml Balance -600 ml 6827 ml Intake Oral 10 ml IV Total 1205 ml 46640 ml Tube Feeding 305 ml 7788 ml Tube Irrigant 490 ml 2710 ml Output Urine Total 2400 ml 89967 ml Stool Total 200 ml 4790 ml Gastric Drainage Total 1070 ml Ultrafiltrate 4700 ml # Bowel Movements 11 Exam Gen.: Patient is heavily sleeping as usual HEENT: Normocephalic, atraumatic Heart: Regular rate and rhythm no S3-S4 sounds Lungs: He does have somewhat of an apneic found and he sleeps, concern for sleep apnea Extremities: Negative for edema Vascular: Palpable pedal pulses Skin: Stage II sacral ulcers, without purulence, large areas the gluteal cleft as well as to the right gluteal Cleft Neurological: Minimally responsive to verbal IVs and Medications IV Fluids Half normal saline 150 mL per hour. Nephrology Medications Reviewed: Medications were reviewed in detail Lab and Diagnostics Result Diagram: 09/04/16 0545 09/04/16 0545 Microbiology Blood cultures pending MRSA swab pending X-Rays, CTs and MRIs 08/23/16 PROCEDURE: CT BRAIN WITHOUT CONTRAST ([id number]) IMPRESSION: No acute disease. 08/23/16 PROCEDURE: X-RAY CHEST ONE VIEW, PORTABLE ([id number]) IMPRESSION: Endotracheal tube appropriate in position. No focal infiltrate or abnormality is seen in the lungs. Additional Diagnostics ABG DateTimeAnalyzed 10:20:00 -_ pH ____7.354 - 7.350 7.450 pCO2 ___31.5__ -mmHg 35.0 45.0 pO2 160 -mmHg 69.0 116 HCO3- ___17.1__ -mmol/L 22.0 26.0 FIO2 ___45.0__ -% PRVC 20 - PEEP ____8.0__ -cmH2O Assessment & Plan Santiago Ann is a 41 year old male with no known past medical history who came in unresponsive after being found with vomit around him, sedated and intubated for acute hypoxemic respiratory failure secondary to aspiration for 5 days and extubated on hospital day 6 following successful spontaneous breathing trial. He remains awake and severally limited in ability to move proximal/axial muscles. Anoxic Brain Injury, present on admission, active Secondary to aspiration and intoxication. Patient has had large volume of vomit suctioned out in the ED. EEG shows evidence of slowing but no other abnormalities to suggest that the patient is having clinical seizures causing his symptoms. There is significant metabolic dysfunction. This will require a lot of work for rehab. It's uncertain how much recovery can be had. - Intubated on 08/23/16, Extubated on 08/28/16 - Zosyn stopped per ID recommendation. - ICU, Infectious disease, Palliative care, neurology and nephrology - CT and MRI head results as above. - Continue tube feeds. - Physical Therapy, Occupational therapy and Speech eval when appropriate. -- Swallow therapy came couple of times by patient was sleeping, and unable to examine him - Palliative care has not yet met with the patient's family again as they feel that the right has asked in the past for everything to be done - Neurology recommends repeat EEG to for comparison. I called Dr. guillaume on who has read the follow-up EEG, he feels that there has been an improvement even though he is remarkable for encephalopathy due to anoxic brain injury versus infectious etiologies. He feels that there might be some improvement in patient's status though he will never regain his previous functional status. Patient's seems to be thinking that patient will get back to his normal life, informed Dr. guillaume of this. He says he will see the patient this evening and will discuss case with them. I called Dr. guillaume again on 09/03/16 at 50 point he mentioned to me that small improvement in patient's mental status of positive, but patient will not return to his baseline function and physical abilities. I conveyed this to the family, states that she does not believe that her would not be fully functionally back to normal. She says she believes in the power of positive thinking. She is also concerned about how to support him with any ongoing rehabilitation efforts at home, she asks about health-related discussions to be taken place outside of the room since the patient will not be included in such discussions. She feels that this discussions might make her depressed, and he will be less likely to participate in his rehabilitation efforts. -- Today's family meeting with palliative care presence is held in a separate room without patient's presence. Dr. Strong has communicated the details of her discussion with neurology, and nephrology. We noted the small improvement in patient's presentation and acknowledged them, but try to give patient's , picture of a long course of recovery with need for extensive support. -- Noted improvement speech therapy" "Able to see pt after third attempt. Pt awake, lethargic, able to follow simple commands. Pt able to count to 5 and name days of the week with min prompts. PO trials of ice chips, thin, NTL, and pureed solids initiated. Throat clearing noted x 2 on ice chips and thin liquids. Pt tolerated additional trials without s/s of aspiration. No difficulty noted with pureed or NTL. Pt's spouse present and educated about POC. ASSEMBLER TRACTOR to f/u and monitor progress.". --They feel that continued speech therapy will help patient, however his inability to afford any therapy following discharge remains a big hinderance. Acute Cholecystitis, active -- Patient is worsened white count 20.2 on 09/05, continued fevers, due to acute cholecystitis based on HIDA scan and abdominal CT -- Note recently started antibiotics - Case discussed with Dr. Lopez this after noon as patient is having increasing leukocytosis, continued fevers, chest x-ray showed considerable consolidation versus aspiration pneumonia -- Placed patient on ertapenem -- Under HIDA scan (" Nonvisualization of the gallbladder suggesting acute cholecystitis"), abdominal CT ("1. Small left pleural effusion with left lower lobe consolidation likely representing pneumonia. Cholelithiasis with probable cholecystitis due to the nonvisualization of the gallbladder on recent HIDA scan. Nonspecific presacral soft tissue thickening. ) -- LFTs remained relatively stable negative for hyperbilirubinemia Metabolic Acidosis, present on admission, active Likely secondary to lactic acidosis and uremia - Monitor CMP: Rhabdomyolysis, present on admission, [place] [address]. Likely secondary to being in one position for 9 hours. Patient has large erythematous regions at pressure points of sacrum and upper thorax with open wound at sacrum. - Wound care consult -- We will recheck total CK on 09/06 Acute Kidney Injury, present on admission, improving Cr on admission at 3.52 and increasing after admission. Unknown history of kidney injury. - Nephrology (Dr. Haynes) currently following case. Hemodialysis done daily since 08/25/16 till 1-2 days ago. No longer an hemodialysis currently is catheter is removed - Nephrology has a good hydration protocol with IV fluids --Nephrology culture the dialysis catheter tip. This showed no growth to date -- Patient is not currently receiving dialysis, patient is improving, nephrology does not feel he needed any further dialysis Hyperkalemia, present on admission, resolved - Continue to monitor Elevated Liver Function Tests, present on admission, improving Likely due to chronic alcohol use - Currently leveling off - Continue to monitor -- Thought to be due to acute cholecystitis Alcohol dependence -Patient currently sedated no need to institute CIWA protocol at this time Drug dependence -Patient is a known user of cocaine and ice -Per family, last known use is around 5 months ago. Acetaminophen for mild pain when necessary. Bowel regimen Senna and MiraLAX scheduled and PRN. Zofran when necessary for nausea and vomiting. SubQ heparin for now. SCDs in place. Social: Patient is an undocumented immigrant. However he may be eligible for Emergent [facility] In[facility] resources. He may not have resources for outpatient care. Family does not seem to be understanding of his prognosis, is expecting that he would recover completely. We will continue discussions. Palliative care Disposition: Likely here for > 2 midnights. Dependent upon anoxic brain injury. GI Prophylaxis: Not indicated (Patient extubated) VTE Mechanical Devices: Intermittant Pneumatic CD Resuscitation Status: CPR: Attempt Resuscitation Time spent 45 min Minerva Wilson DO Sep 05, 2016 00:17
[2016-09-05] MEDS: Heparin 5,000 Unit/mL Inj SUBQ SCH ×3 (00:43→17:24)
[2016-09-05 05:52] VITALS: BP 137/79; PULSE 90; RESP 21; O2SAT 96
[2016-09-05 06:05] LABS: Mean Corpuscular Hemoglobin 28.7 pg (27.0-35.0); Mean Corpuscular Volume 92.3 fL (81-100)
--- NOTE | 2016-09-05 07:13 | NUR ---
Critical lab Ghassan Wilson r/t critical lab value BUN 102 and creat 5.32. awaiting response.
[2016-09-05 07:50] VITALS: BP 138/80; PULSE 88; RESP 22; O2SAT 96
[2016-09-05] MEDS: Thiamine Inj 200 MG in Dextrose 5% 50 ML IV SCH (07:56)
[2016-09-05] MEDS: AMANTADINE 10 MG/ML TUBE SCH (08:00)
[2016-09-05] MEDS: Acetaminophen 32.5 mg/mL 20 mL Liquid PO PRN ×2 (08:11→20:48)
--- NOTE | 2016-09-05 08:51 | NUR ---
Social Work: Continued Discharge Planning D: Per Fiber Optic Splicer, there are 45 slots of state funded SNF benefits for [facility] medicaid. There is a long waitlist. AEROSPACE MANAGER provided with contact information for Maribel Berry ([email or web address]). AEROSPACE MANAGER sent a general email requesting information about the [facility] waitlist and how to place patient on this list. Utilization Specialists both CC'd on email. A: Pt who will require skilled rehab and nursing P: Evolving; AEROSPACE MANAGER to continue to follow to assist with discharge planning JEFF Fox
--- NOTE | 2016-09-05 09:24 | NUR ---
Fever Liquid tylenol was given as ordered for Fever 100.4. Dr. Wilson at bed side and aware. per Dr. Wilson surgery will see patient today. Palliative doctor at bed side this morning to see patient.
--- NOTE | 2016-09-05 11:56 | NUR ---
Lab Lab called to draw blood for blood cultures. Lab drawn for blood cultures and sent to lab.
--- NOTE | 2016-09-05 11:59 | NUR ---
Car Dispatcher Car Dispatcher here at bed side to meet family and states," i am waiting for the palliative doctor for family meeting.
--- NOTE | 2016-09-05 12:24 | NUR ---
Family meeting Family meeting in progress with family and palliative Dr. Margot Montano with missile tracking technician present.
--- NOTE | 2016-09-05 12:54 | PCM.PALLBR ---
Palliative Care Recommendation Summary of palliative recommendations: -Symptom management (Pain/other): per attending -DPOA/Advanced Directives/POLST: 1. FULL Code 2. is designated decision maker. 3. No prior paperwork for AD or POLST. -Family/emotional support: strong support from large, local family. -Spiritual support: family is Jew and the culture of Catholicism and regular mass attendance is part of their life. They don't want a practicing urologist to visit at this time as they feel, if the patient knew he would panic and think he is dying. Patient/Family Goals: , family desires all possible interventions to help pt get back to his baseline health. 09/05: Dr. Wolfe and sales service executive met with Stella, pt's sister Guillermina and his mother Cyndi in a room adjacent to pt's room (per 's request). wanted to know why surgeon had visited her , and whether he would get a gall bladder surgery. She also wanted to know results of a brain test she said was scheduled from 2-4pm 09/04. Dr. Wolfe explained that Mr. Ann has gallbladder inflammation, but it is not clear he needs surgery, that the surgeon was asked to assess him and determine best path. Surgery note not yet in EMR. Dr. Wolfe not aware of any brain testing scheduled for 09/04 and insists it occurred. asked RN to contact Dr. Wilson to see if she could clarify this for , as perhaps a test was ordered and done whose results are not on EMR yet. I reminded family that we want to meet with them and neurologist Dr. Mcmahan at noon on ThuSeptember 08. I asked them how many other family members might be at this meeting, but they don't know yet. Sister will tell RN later who will let our office know. 09/04: Drs. Wolfe and Gisel met with and sales service executive in a.m. to re- introduce the PC team and examine her . After exam, we offered sympathetic listening and support. We asked to meet with her and pt's mother at 1pm today. She consented. We met again, outside pt's room in a separate consult room at her request. She is worried that her can understand our conversation and would be discouraged by any bad news. Present were: Drs. Wolfe, Gisel, Steve, sales service executive, Genet George (BLANCA), and Stella, pt's sister Guillermina and his mother Cyndi. Dr. Wilson gave a brief medical update, acknowledging to the family that pt has shown small signs of improvement, but she is very cautious about what this means for him. Dr. Wolfe gave news from Dr. Haynes that pt's kidneys are improving enough that he will likely not need any more dialysis. . 1. We gently explained to family that Santiago's brain injury is going to be a long, slow process of waiting and helping him before we know what he will be able to do for himself. 2. Dr. Wolfe told them that he may not be able to get out of a bed, that he may not be able to eat, bathe, dress on his own, that he may not be able to be aware of when he needs to use the bathroom. Someone will have to take care of him for all these things, and it will probably be a year before the neurology doctors can give a better idea of how much self-care he can recover. 3. His asked about his speaking abilities. He does speak at times, and it seems to be clear speech and meaningful when it occurs. Dr. Wilson says she will ask Dr. Mcmahan about this, as we don't know how much speaking ability or thinking ability he will recover. 4. We invited family to a meeting Thursday no with all of us and Dr. Mcmahan, which gives us more time to observe Santiago tomorrow and over the weekend- -as well as giving the family members who work time to try to arrange to get off for this meeting. 5. We offered supportive listening and answered questions. Please see Ms. Chaviranandini's BLANCA note from re: additional information on family responses today. 08/26 Family Conference Team Meeting (FCTM): On Hospital Day 4 Palliative Care had an initial meeting with family to gather background information about the pt and give a medical update compiled by the Attending hospitalist team through a [employer]zeri Speaking D[employer]. We met with family at length. This included pt mother Cyndi, sister Guillermina, nephew Paresh, cousin Sina and his spouse Jacquelyn and patient's spouse Elise Douglas (sales service executive services), Genet George (), Hazel Wolfe, and Jyotsna--all from [facility]-- and Dr. Rodriguez ([facility] retail sales teammate). Stella notes that she and pt have three children; Santiago Sánchez (13), Zofia (8) and Radha (6). Discussed at length pt current condition and answered questions about medical issues. Dr. Hastings explained that neurological workup is ongoing and outcome is not clear. Dr. Wolfe went over treatments being used to care for pt's lungs and kidneys. 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 He is proud of his capabilities and has learned his skills on the job. Family is Jew and is part of the baptism at [facility] in [place]. Pt enjoys his children and is noted to be a good father. He is described as someone that others esteem and look up to, someone others love, he thinks about the future of his children and plans for them and is a hard worker. Pt has long struggled with depression. He has felt sad that he was raised by his grandmother and for reasons that are unclear, not by his parents. He longed to have a family of his own so that he could be a positive influence and offer parental love and support for his children that he feels he didn't receive. He has disclosed to his spouse and sister that he had depression and at times wished that he had not been born. Family does not think that current episode was a suicide attempt. Pt comes from a family of heavy drinkers and has used drugs and ETOH at baseline, and more so in recent days prior to this hospitalization. Sister feels that pt was not setting a good example for his children with his use of drugs and ETOH. Spouse disclosed pt feelings of depression and sadness and this was very difficult for her to discuss this in front of pt's family. Pt sister expressed support for her to disclose, indicating that this needs to be talked about in order for pt to get the help that he needs. Patient's mother Cyndi, became upset and had to leave the room early and it appeared that she was not aware of some of the family issues brought forward by the and sister today. Family assured by team and sales service executive that this information about family issues , depression, drinking is confidential and medical team only uses information to help monitor pt's health. For example, as a result of this information, the team may be watching for signs of withdrawal from alcohol or considering start of antidepressant when Santiago is able to take po or have a feeding tube to deliver medication. Problems: Resuscitation Status Resuscitation Status: CPR: Attempt Resuscitation POLST Updates/Changes Previous POLST?: No Total time 65 minutes; >50% face to face with patient and/or family, providing counselling regarding plans and recommendations, and in care coordination with his/her medical teams. Palliative Brief Note Date of Service Sep 05, 2016 . Patient Identification Santiago Ann is a 41 year old man who presented to the ED via EMS after being found unconscious at 0430H with vomit on himself by his who last saw him well at 1900H the previous night. EMS was called and CPR instructions were given over the phone to the as the patient had abnormal breathing. She gave him CPR until medics arrived. The medics gave the patient 2 mg of Narcan IV which caused his arms to move but he continued to be unresponsive. The pt's reports no falls or trauma to the pt's head. She also states that the pt's brother has possibly had seizures in the past.She mentioned that Mr. Ann drank a bottle of tequila the night prior to admission and that he frequently drinks alcohol. He has had no prior episodes like this. In the ED, vomit was suctioned out of the throat, and he was intubated. CT showed no acute disease and chest x-ray was unremarkable .He was found to be hyperkalemic and acidotic on ABG. Urine Tox in the emergency department showed evidence of cocaine. Hospital Course: He was admitted on 08/23 from ED to the CCU for further management. He developed acute tubular necrosis secondary to rhabdomyolysis and is being followed by Nephrology and received his first dialysis treatment 08/25 for rising creatinine related to elevated CKs. Dr. Lopez has been treating him for possible aspiration pneumonia. The patient has continued to be unresponsive. An EEG done yesterday while the patient was on propofol showed slowing at approximately 6 hertz but no epileptiform abnormalities and no evidence of subclinical seizures to explain his coma state. Head CT was normal, but 2nd head CT completed on August 25 showed evidence of what appeared to be basal ganglial or globus pallidus hyperdensities. There were no other signs to suggest edema. A neurology consultation was requested when the patient failed to improve and continued to show suggestion of brainstem dysfunction with doll's eyes and inability to breathe on his own off the respirator. He has, however, remained on propofol which has been tapered but not completely due to the evidence of bronchospasm at times according to nursing staff. Significant for his neurological examination, the propofol has been stopped. Off propofol there was some voluntary movement of his eyes and facial response to familiar voices. On 08/26, neurology managed services consultant counseled family that he likely has had some anoxic injury but it is yet unclear how much, that we will have to monitor this over time. He got his #3 dialysis treatment; he is still anuric and his creatinine remains 6.9, total CK 12,000, down from 31,000 on admission.Gradually , he began producing urine again and was extubated several days ago. His last dialysis was on 08/30. His dialysis catheter was removed after dialysis that day and cultured to look for infection. On 09/04, Hospital Day 13, Dr. Haynes has told Dr. Wilson ([facility] Hospitalist ) and PC team that she thinks pt will not need to receive more dialysis as his kidney function has been slowly improving. However, neurologist Dr. Mcmahan feels the patient's anoxic brain injury will continue to be very disabling, with uncertainty regarding how much function can be recovered. Today is 09/05, Hospital Day 14: Subjective: Pt unable to participate in interview or family discussions due to anoxic brain injury. Drs. Wolfe examined pt alone at bedside in a.m., He has a low grade temp 100.4 F, treated with liquid tylenol via NGT. Exam: In general, he is a well nourished man, lying still in bed, arms slightly bent at his sides HEENT: normocephalic, NGT in left nostril with tube feeds running. Lungs: clear Heart: S1,S2, rrr Abdomen: soft,nondistended, nontender, +bowel sounds in all 4 quadrants. Extremities: no edema. legs, arms are stiff, tonic. Neuro: He does not respond to any verbal commands. Sensation: He withdraws to noxious stimuli symmetrically. Skin: damp, clammy, warm to touch Marly Wolfe MD Sep 05, 2016 12:54 Marly Wolfe MD Sep 05, 2016 12:54
--- NOTE | 2016-09-05 13:50 | PCM.PNNEPH ---
Subjective Date of Service Sep 05, 2016 Subjective Patient is well-known to me from previous evaluations in this hospitalization for acute kidney injury from rhabdomyolysis. Developed acute tubular necrosis and required several dialysis treatments. His renal function has slowly begun to improve and he is currently in a diuretic phase of his acute kidney injury. Urine remains minimally responsive and there is a high likelihood of chronic anoxic brain injury. He has had an increase in his white count and scans of his gallbladder showed acute cholecystitis with lipase are 563 and gallstone pancreatitis. Discussed the case with from surgery who will try to coordinate things either with radiology here with GI for the best route. I also had a long discussion with the family as to his renal function improving but also his rather poor prognosis. His blood pressure is good and his intake and output in the last 24 hour showed 5134 in and [id number]. This morning his sodium is 147, potassium 5.0, chloride 103, bicarbonate 16, BUN and creatinine are improving at 102 and 5.34. Exam Vital Signs Vital Sign - Last Date Time Temp Pulse Resp B/P Pulse Ox O2 Delivery O2 Flow Rate FiO2 09/05/16 09:34 37.6 09/05/16 09:12 Supplement Oxygen 09/05/16 07:50 88 22 138/80 96 09/02/16 11:17 2.00 Intake and Output 09/04/16 09/04/16 09/05/16 Cumulative From/Thru 15:00 23:00 07:00 08/23/16 05:20 - 09/05/16 06:14 Intake Total 2000 ml 3656 ml 69621 ml Output Total 2600 ml 2550 ml 27520 ml Balance -600 ml 1106 ml 7933 ml Intake Oral 10 ml IV Total 1205 ml 2100 ml 51080 ml Tube Feeding 305 ml 756 ml 8544 ml Tube Irrigant 490 ml 800 ml 3510 ml Output Urine Total 2400 ml 2400 ml 96136 ml Stool Total 200 ml 150 ml 4940 ml Gastric Drainage Total 1070 ml Ultrafiltrate 4700 ml # Bowel Movements 11 Exam HEENT examination remarkable for pallor sclera. Neck is supple without adenopathy, thyromegaly, or jugular venous distention. Lungs showed diffuse scattered rhonchi in all lung lisa. Heart was tachycardic. Abdomen was soft with diminished bowel sounds throughout the abdomen and moderate tympany throughout the abdomen. Patient did not respond to any tenderness rebound or evidence of guarding. There is no hepatosplenomegaly. Extremities do not show any evidence of any clubbing cyanosis or edema and skin turgor is good. Lab and Diagnostics Result Diagram: 09/05/16 0540 09/05/16 0540 Microbiology Blood cultures pending MRSA swab pending X-Rays, CTs and MRIs 08/23/16 PROCEDURE: CT BRAIN WITHOUT CONTRAST ([id number]) IMPRESSION: No acute disease. 08/23/16 PROCEDURE: X-RAY CHEST ONE VIEW, PORTABLE ([id number]) IMPRESSION: Endotracheal tube appropriate in position. No focal infiltrate or abnormality is seen in the lungs. Additional Diagnostics ABG DateTimeAnalyzed 10:20:00 -_ pH ____7.354 - 7.350 7.450 pCO2 ___31.5__ -mmHg 35.0 45.0 pO2 160 -mmHg 69.0 116 HCO3- ___17.1__ -mmol/L 22.0 26.0 FIO2 ___45.0__ -% PRVC 20 - PEEP ____8.0__ -cmH2O Plan Impression Impression #1 resolving acute kidney injury currently on a diuretic phase #2 metabolic acidosis #3 gallstone pancreatitis number for anoxic brain injury Recommendations #1 to continue his aggressive fluid replacement to match his urine output. We will also need to continue to monitor his potassium has been magnesium and phosphorus over the next several days. Ace Whatley DO Sep 05, 2016 13:50
--- NOTE | 2016-09-05 14:03 | NUR ---
Inpatient Wound Nurse Patient seen for evaluation of thoracic spine and scapular plane wound and gluteal wounds. Thoracic spine at scapular plane wound is nearly healed. Lateral thirds are pink, epithelialized skin; center portion was covered with dark crusts that flake off easily with washing. Under these are areas of epithelialized skin, a few areas remain open and bleed. Gluteal wounds are greatly improved from last week. Largest wound measures 4 cm L x 7 cm W x <0.1 cm D, appears as blistered skin that has been de-roofed. Despite this, skin has lightened, less erythemic, draining much less. Healed areas and periwound skin is darkened, will likely not lighten for extended period. Linear break in intergluteal cleft with small amount of slough, mild periwound erythema. Both wounds were cleansed and blotted dry. Both wounds were covered with Adaptic and Mepilex adhesive sheet foam dressing to promote moist wound healing. Gluteal dressing to be changed daily and PRN. Thoracic spine dressing to be changed every other day or PRN.
[2016-09-05] MEDS: Dextrose 5% 0.45% NaCl 1,000 ML IV SCH ×2 (14:24→23:26)
[2016-09-05 16:12] VITALS: BP 141/86; PULSE 87; RESP 18; O2SAT 94
--- NOTE | 2016-09-05 17:09 | CONS ---
[address] [address] CONSULTATION REPORT PATIENT: SANDY SOSA : 1975 MR#: [id number] ADMIT: 08/23/2016 JOB ID: [id number] DATE OF SERVICE: 09/05/2016 CHIEF COMPLAINT/IDENTIFICATION: I have been asked by Dr. Wilson of the hospitalist service to see this 41-year-old man with possible cholecystitis. HISTORY OF PRESENT ILLNESS: The patient has been in the hospital roughly for two weeks, presenting with an anoxic brain injury associated with tequila drinking and being found in his own vomitus. He was intubated for roughly one week plus with aspiration pneumonia. Over the past several days he has been noted to have an elevated temperature and an elevated white count. Due to his anoxic brain injury he is unable to verbalize any particular complaint and his exam has been relatively nonspecific. HIDA scan was obtained yesterday that demonstrates nonvisualization of the gallbladder. I have been asked to see him and to make recommendations regarding treatment. PAST MEDICAL HISTORY: Prior to this hospitalization he was in good health. MEDICATIONS: Per med list. ALLERGIES: No known allergies. SOCIAL HISTORY: Prior to this hospitalization he drank frequently, but not on a daily basis. 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 Currently his healthcare proxy is his . The patient is seen with his , his mother, and I believe his sister, none of whom speak Maltese, but we have had the benefit of a blocker and polisher. FAMILY HISTORY: Noncontributory. REVIEW OF SYSTEMS: Noncontributory. PHYSICAL EXAMINATION: Relatively unresponsive male in no acute distress. Vital signs: T-max is 38.3, but his temperature this morning was 37.6. Blood pressure and pulse are recorded within normal limits. He makes some vocal sounds, but primarily coughing rhonchorous sounds. Lungs have decreased sounds at the bases with scattered rhonchi throughout. His heart sounds are regular. Abdomen is soft and nontender, without peritoneal signs. LABORATORY DATA: Show that his white count is 18.7, was 20.2 yesterday, and began rising on the at 15.3. His hematocrit is 32. Chemistries are slightly abnormal with an elevated sodium at 147, a relatively low bicarbonate at 16, and a chloride of 113, which gives him a calculated anion gap of 18. LFTs are mildly abnormal, with AST and ALT elevated at 53 and 116. Normal bilirubin. His lipase is 597 this morning and it was 763 yesterday. It was normal on admission. IMAGING: He had a HIDA scan yesterday that demonstrated nonvisualization of the gallbladder. He has had a previous ultrasound showing gallstones and an abdominal and pelvic CT obtained that demonstrates findings that are described as a small left pleural effusion, cholelithiasis with probable cholecystitis based on the HIDA scan, and what they described as nonspecific presacral soft tissue thickening. In the description, they note mild stranding along the uncinate process of the pancreas, and I think his pancreas is a bit inflamed. IMPRESSION AND RECOMMENDATIONS: An unfortunate, previously healthy, 41-year-old man with what looks to be combined acute cholecystitis and gallstone pancreatitis. I suspect he has had this inflammatory process for the past two days. It does not seem well controlled with antibiotics. Given his down-trending lipase, I would be inclined to recommend a laparoscopic cholecystectomy except for the severity of his anoxic brain injury and his pulmonary status. I have discussed the options with the family and recommended a cholecystostomy tube. I have offered them a 2nd opinion as there are some surgeons who might think that a laparoscopic cholecystectomy was the appropriate way to go, but I think a cholecystostomy tube with continued intravenous antibiotics is in the patient's best interest. I also think we should hold his tube feedings to make him n.p.o. until his lipase starts coming down. General Surgery will continue to follow the patient and hopefully if he makes a good recovery he would be a candidate for an elective laparoscopic cholecystectomy 3-[address] prior to removal of his cholecystostomy tube.
--- NOTE | 2016-09-05 19:09 | NUR ---
wound care Wound care nurse saw patient at bed side and changed dressings on left buttock and right scapula. See wound care nurse note. requesting to speak to Dr. Wilson and Dr. Wilson met patient's .
[2016-09-05] MEDS: Ertapenem Inj 500 MG in 0.9% Sodium Chloride 50 ML IV SCH (20:12)
[2016-09-05] MEDS ORDERED: 0.9% Sodium Chloride 100 ML ONE (20:21)
[2016-09-05 20:38] VITALS: BP 131/77; PULSE 83; RESP 20; O2SAT 96
[2016-09-05] MEDS: Micafungin Inj 100 MG in 0.9% Sodium Chloride 100 ML IV SCH (21:04)
--- NOTE | 2016-09-05 23:31 | PCM.PNMED ---
Subjective Date of Service Sep 05, 2016 Subjective Patient underwent a HIDA scan and a CT abdominopelvic both of these showed a concern for an acute cholecystitis. Patient continues to spike fevers, he was seen this morning in the morning to see if his mental status is any better . I also met with the later in the day as she was asking for an update Exam Vital Signs Vital Sign - Last Date Time Temp Pulse Resp B/P Pulse Ox O2 Delivery O2 Flow Rate FiO2 09/05/16 20:38 37.9 83 20 131/77 96 Room Air 09/02/16 11:17 2.00 Intake and Output 09/04/16 09/04/16 09/05/16 Cumulative From/Thru 15:00 23:00 07:00 08/23/16 05:20 - 09/05/16 06:14 Intake Total 2000 ml 3656 ml 77734 ml Output Total 2600 ml 2550 ml 10739 ml Balance -600 ml 1106 ml 7933 ml Intake Oral 10 ml IV Total 1205 ml 2100 ml 62191 ml Tube Feeding 305 ml 756 ml 8544 ml Tube Irrigant 490 ml 800 ml 3510 ml Output Urine Total 2400 ml 2400 ml 15754 ml Stool Total 200 ml 150 ml 4940 ml Gastric Drainage Total 1070 ml Ultrafiltrate 4700 ml # Bowel Movements 11 Exam Gen.: Patient is heavily sleeping as usual HEENT: Normocephalic, atraumatic Heart: Regular rate and rhythm no S3-S4 sounds Lungs: He does have somewhat of an apneic found and he sleeps, concern for sleep apnea, diffuse rales Extremities: Negative for edema Vascular: Palpable pedal pulses Neurological: Minimally responsive to pain IVs and Medications Medications Reviewed: Medications were reviewed in detail Lab and Diagnostics Result Diagram: 09/05/16 0540 09/05/16 0540 Microbiology Blood cultures pending MRSA swab pending X-Rays, CTs and MRIs 08/23/16 PROCEDURE: CT BRAIN WITHOUT CONTRAST ([id number]) IMPRESSION: No acute disease. 08/23/16 PROCEDURE: X-RAY CHEST ONE VIEW, PORTABLE ([id number]) IMPRESSION: Endotracheal tube appropriate in position. No focal infiltrate or abnormality is seen in the lungs. Additional Diagnostics ABG DateTimeAnalyzed 10:20:00 -_ pH ____7.354 - 7.350 7.450 pCO2 ___31.5__ -mmHg 35.0 45.0 pO2 160 -mmHg 69.0 116 HCO3- ___17.1__ -mmol/L 22.0 26.0 FIO2 ___45.0__ -% PRVC 20 - PEEP ____8.0__ -cmH2O Assessment & Plan Santiago Ann is a 41 year old male with no known past medical history who came in unresponsive after being found with vomit around him, sedated and intubated for acute hypoxemic respiratory failure secondary to aspiration for 5 days and extubated on hospital day 6 following successful spontaneous breathing trial. He remains awake and severally limited in ability to move proximal/axial muscles. Anoxic Brain Injury, present on admission, active Secondary to aspiration and intoxication. Patient has had large volume of vomit suctioned out in the ED. EEG shows evidence of slowing but no other abnormalities to suggest that the patient is having clinical seizures causing his symptoms. There is significant metabolic dysfunction. This will require a lot of work for rehab. It's uncertain how much recovery can be had. - Intubated on 08/23/16, Extubated on 08/28/16 - Zosyn stopped per ID recommendation. - ICU, Infectious disease, Palliative care, neurology and nephrology - CT and MRI head results as above. - Continue tube feeds. - Physical Therapy, Occupational therapy and Speech eval when appropriate. -- Swallow therapy came couple of times by patient was sleeping, and unable to examine him - Palliative care has not yet met with the patient's family again as they feel that the right has asked in the past for everything to be done - Neurology recommends repeat EEG to for comparison. I called Dr. guillaume on who has read the follow-up EEG, he feels that there has been an improvement even though he is remarkable for encephalopathy due to anoxic brain injury versus infectious etiologies. He feels that there might be some improvement in patient's status though he will never regain his previous functional status. Patient's seems to be thinking that patient will get back to his normal life, informed Dr. guillaume of this. He says he will see the patient this evening and will discuss case with them. I called Dr. guillaume again on 09/03/16 at 50 point he mentioned to me that small improvement in patient's mental status of positive, but patient will not return to his baseline function and physical abilities. I conveyed this to the family, states that she does not believe that her would not be fully functionally back to normal. She says she believes in the power of positive thinking. She is also concerned about how to support him with any ongoing rehabilitation efforts at home, she asks about health-related discussions to be taken place outside of the room since the patient will not be included in such discussions. She feels that this discussions might make her depressed, and he will be less likely to participate in his rehabilitation efforts. -- Today's family meeting with palliative care presence is held in a separate room without patient's presence. Dr. Strong has communicated the details of her discussion with neurology, and nephrology. We noted the small improvement in patient's presentation and acknowledged them, but try to give patient's , picture of a long course of recovery with need for extensive support. -- Noted improvement speech therapy" "Able to see pt after third attempt. Pt awake, lethargic, able to follow simple commands. Pt able to count to 5 and name days of the week with min prompts. PO trials of ice chips, thin, NTL, and pureed solids initiated. Throat clearing noted x 2 on ice chips and thin liquids. Pt tolerated additional trials without s/s of aspiration. No difficulty noted with pureed or NTL. Pt's spouse present and educated about POC[employer] to f/u and monitor progress.". --They feel that continued speech therapy will help patient, however his inability to afford any therapy following discharge remains a big hinderance. Acute Cholecystitis, active -- Patient is worsened white count 20.2 on 09/04, tender down to 18.7 on 09/05 continued fevers, due to acute cholecystitis based on HIDA scan and abdominal CT -- Note recently started antibiotics -- Placed patient on ertapenem -- Under HIDA scan (" Nonvisualization of the gallbladder suggesting acute cholecystitis"), abdominal CT ("1. Small left pleural effusion with left lower lobe consolidation likely representing pneumonia. Cholelithiasis with probable cholecystitis due to the nonvisualization of the gallbladder on recent HIDA scan. Nonspecific presacral soft tissue thickening. ) -- LFTs remained relatively stable negative for hyperbilirubinemia -- Gen. surgery was consulted, Dr. Dash 's in the patient: " I suspect he has hadthis inflammatory process for the past two days. It does not seem well controlled with antibiotics. Given his down-trending lipase, I would beinclined to recommend a laparoscopic cholecystectomy except for the severity ofhis anoxic brain injury and his pulmonary status. I have discussed the optionswith the family and recommended a cholecystostomy tube. I have offered them a2nd opinion as there are some surgeons who might think that a laparoscopiccholecystectomy was the appropriate way to go, but I think a cholecystostomytube with continued intravenous antibiotics is in the patient's best interest.I also think we should hold his tube feedings to make him n.p.o. until hislipase starts coming down. General Surgery will continue to follow the patientand hopefully if he makes a good recovery he would be a candidate for anelective laparoscopic cholecystectomy 3-[address] prior to removal of his cholecystostomy tube." Acute galstone Pancreatitis, active -- 09/05 lipase showed lipase of 597, added lipase yesterday's labs that showed 763. Amylase 266 (indicating the pancreatitis has been ongoing for some time) -- Continue IV fluids -- Consider MRCP, consider consulting GI Metabolic Acidosis, present on admission, active Likely secondary to lactic acidosis and uremia - Monitor CMP: Rhabdomyolysis, present on admission, [place] [id number]. Likely secondary to being in one position for 9 hours. Patient has large erythematous regions at pressure points of sacrum and upper thorax with open wound at sacrum. - Wound care consult -- We will recheck total CK on 09/06 Acute Kidney Injury, present on admission, improving Cr on admission at 3.52 and increasing after admission. Unknown history of kidney injury. - Nephrology (Dr. Haynes) currently following case. Hemodialysis done daily since 08/25/16 till 1-2 days ago. No longer an hemodialysis currently is catheter is removed - Nephrology has a good hydration protocol with IV fluids --Nephrology culture the dialysis catheter tip. This showed no growth to date --Patient is not currently receiving dialysis, patient is improving, nephrology does not feel he needed any further dialysis --09/05 nephrology Recs "continue his aggressive fluid replacement to match his urine output. We will also need to continue to monitor his potassium has been magnesium and phosphorus over the next several days." Hyperkalemia, present on admission, resolved - Continue to monitor Elevated Liver Function Tests, present on admission, improving Likely due to chronic alcohol use - Currently leveling off - Continue to monitor -- Thought to be due to acute cholecystitis Alcohol dependence -Patient currently sedated no need to institute CIWA protocol at this time Drug dependence -Patient is a known user of cocaine and ice -Per family, last known use is around 5 months ago. Acetaminophen for mild pain when necessary. Bowel regimen Senna and MiraLAX scheduled and PRN. Zofran when necessary for nausea and vomiting. SubQ heparin for now. SCDs in place. Social: Patient is an undocumented immigrant. However he may be eligible for Emergent Alien Inpatient resources. He may not have resources for outpatient care. Family does not seem to be understanding of his prognosis, is expecting that he would recover completely. We will continue discussions. Palliative care. On 09/05, physical therapy has seen the patient still recommends longterm facility via BLS transfer Disposition: Likely here for > 2 midnights. Dependent upon anoxic brain injury. GI Prophylaxis: Not indicated (Patient extubated) VTE Mechanical Devices: Intermittant Pneumatic CD Resuscitation Status: CPR: Attempt Resuscitation Time spent 30 min Minerva Wilson DO Sep 05, 2016 23:05
[2016-09-06] MEDS: Heparin 5,000 Unit/mL Inj SUBQ SCH ×3 (00:39→17:55)
[2016-09-06 01:36] VITALS: BP 134/71; PULSE 79; RESP 18; O2SAT 94
[2016-09-06] MEDS: Acetaminophen 32.5 mg/mL 20 mL Liquid PO PRN ×2 (06:13→22:00)
[2016-09-06 06:23] VITALS: BP 139/85; PULSE 87; RESP 18; O2SAT 96
[2016-09-06 07:16] LABS: Mean Corpuscular Hemoglobin 29.3 pg (27.0-35.0); Mean Corpuscular Volume 92.3 fL (81-100)
[2016-09-06] MEDS: Dextrose 5% 0.45% NaCl 1,000 ML IV SCH (07:33)
[2016-09-06 07:45] VITALS: BP 132/81; PULSE 89; RESP 20; O2SAT 96
--- NOTE | 2016-09-06 07:53 | NUR ---
Fever/Activity/dressing pt was still having fever highest 38.4. Administered Tylenol. post Tylenol, T 37.9. pt spuse and RN was applying cold wash close frequently. spouse has been performing passive ROM exercising. nursing staff has been turning pt q2hrs. left buttock wound dressing changed x1 with Mepilex adhesive sheet foam.
[2016-09-06 07:59] LABS: Magnesium 2.1 mg/dL (1.6-2.6); Phosphorus 5.5 mg/dL (2.5-4.9)
[2016-09-06] MEDS: Thiamine Inj 200 MG in Dextrose 5% 50 ML IV SCH (10:32)
[2016-09-06] MEDS: AMANTADINE 10 MG/ML TUBE SCH (10:32)
[2016-09-06] MEDS ORDERED: D5 0.45% NaCl + KCl 20 mEq/L 1,000 ML IV SCH (10:45)
--- NOTE | 2016-09-06 11:12 | PCM.PNNEPH ---
Subjective Date of Service Sep 06, [address] Dash's consult and appreciate his input. His sodium has once again was not 150 this morning. He remains unresponsive as he has been since extubation. The last 24 hours he said 6192 and input and 5150 and urine output and this morning is already had surgery for 75 out. His sodium was 150, potassium 4.9, chloride of 117, bicarbonate 17, BUN and creatinine continue to improve at 94 and 4.1 respectively with a glucose of 137. This morning his phosphorus is 5.5, magnesium 2.1, and his lipase is slightly from yesterday to 12/15/2006. Exam Vital Signs Vital Sign - Last Date Time Temp Pulse Resp B/P Pulse Ox O2 Delivery O2 Flow Rate FiO2 09/06/16 06:45 37.9 09/06/16 06:23 87 18 139/85 96 Room Air 09/02/16 11:17 2.00 Intake and Output 09/05/16 09/05/16 09/06/16 Cumulative From/Thru 15:00 23:00 07:00 08/23/16 05:20 - 09/05/16 19:12 Intake Total 2536 ml 21771 ml Output Total 2750 ml 69271 ml Balance -214 ml 7719 ml Intake Oral 0 ml 10 ml IV Total 1469 ml 45547 ml Tube Feeding 767 ml 9311 ml Tube Irrigant 300 ml 3810 ml Output Urine Total 2750 ml 83837 ml Stool Total 4940 ml Gastric Drainage Total 1070 ml Ultrafiltrate 4700 ml # Bowel Movements 11 Exam Neck is supple without adenopathy, thyromegaly, or jugular venous distention. Lungs showed scattered rhonchi and rare expiratory wheezes. Heart is regular with soft systolic murmur. Abdomen soft without any tenderness rebound or guarding masses or hepatosplenomegaly. His bowel sounds are diminished. Extremities do not show any evidence of any clubbing, cyanosis, or edema. Skin turgor is good. Lab and Diagnostics Result Diagram: 09/06/1635 09/06/16 0635 Microbiology Blood cultures pending MRSA swab pending X-Rays, CTs and MRIs 08/23/16 PROCEDURE: CT BRAIN WITHOUT CONTRAST ([id number]) IMPRESSION: No acute disease. 08/23/16 PROCEDURE: X-RAY CHEST ONE VIEW, PORTABLE ([id number]) IMPRESSION: Endotracheal tube appropriate in position. No focal infiltrate or abnormality is seen in the lungs. Additional Diagnostics ABG DateTimeAnalyzed 10:20:00 -_ pH ____7.354 - 7.350 7.450 pCO2 ___31.5__ -mmHg 35.0 45.0 pO2 160 -mmHg 69.0 116 HCO3- ___17.1__ -mmol/L 22.0 26.0 FIO2 ___45.0__ -% PRVC 20 - PEEP ____8.0__ -cmH2O Plan Impression Impression #1 acute tubular necrosis which is resolved and currently in a diuretic phase #2 hyponatremia #3 metabolic acidosis Recommendations #1 I would like to switch his maintenance IV to D5 and a quarter normal saline to run at 100 mL's per hour. Per Dr. Merida's recommendation I feel we need to hold the tube feedings. Continue with free water flushes. We will continue to follow his lab, intake and output. Unfortunately I feel that his prognosis is quite poor from his anoxic encephalopathy. Ace Whatley DO Sep 06, 2016 11:12
[2016-09-06] MEDS: Dextrose 5% 0.225% NaCl 1,000 ML IV SCH ×2 (12:20→20:30)
[2016-09-06 12:30] VITALS: BP 132/81; PULSE 86; RESP 20; O2SAT 96
--- NOTE | 2016-09-06 13:13 | PCM.PNSURG ---
Subjective Date of Service: Sep 06, 2016 Visit Information: Anoxic Brain Injury, Cholecystitis, Pancreatitis Date of Admission: Aug 23, 2016 at 07:01 Hospital Day # 15 Subjective: Denying abdominal pain, Some Fevers, Still getting tube feeds Objective Vital Sign- Last 8 Hours Date Time Temp Pulse Resp B/P Pulse Ox O2 Delivery O2 Flow Rate FiO2 09/06/16 06:45 37.9 09/06/16 06:23 38.4 87 18 139/85 96 Room Air Intake and Output- Last 8 Hour 09/06/16 Cumulative From/Thru 07:00 08/23/16 05:20 - 09/05/16 19:12 Intake Total 73367 ml Output Total 59975 ml Balance 7719 ml Intake Oral 10 ml IV Total 52676 ml Tube Feeding 9311 ml Tube Irrigant 3810 ml Output Urine Total 63994 ml Stool Total 4940 ml Gastric Drainage Total 1070 ml Ultrafiltrate 4700 ml # Bowel Movements 11 Abdomen: Soft Result Diagram: 09/06/16 0635 09/06/16 0635 Assessment & Plan Impression Cholecystitis & Pancreatitis in the setting of recent anoxic anne marie injury Problems: Plan Hold tube feeds for now Broad spectrum antibiotics D/W IR about feasibility of cholecystostomy Will continue to follow Zeinab Solis MD Sep 06, 2016 13:13
[2016-09-06 18:15] VITALS: BP 137/80; PULSE 89; RESP 22; O2SAT 97
--- NOTE | 2016-09-06 19:47 | NUR ---
Activity/tube feeds/febrile Pt. contiues to be sedated; very little response to stimuli. Pt. moans when being turned Q2 hr. Drsg changed to left scapula and buttock area. Tube feeds discontinued per Dr. Ly's orders, with IV fluids infusing. FMS intact, drained 100cc this shift. Pt. suctioned intermittently; thick mucous observed. Pt. continues to be febrile, with last temp reading 37.7 Ax. Report given to QUETA Tomlinson to continue care.
[2016-09-06] MEDS: Ertapenem Inj 500 MG in 0.9% Sodium Chloride 50 ML IV SCH (20:30)
--- NOTE | 2016-09-06 21:00 | PCM.PNMED ---
Subjective Date of Service Sep 06, 2016 Subjective Patient is seen and examined. His eyes are tracking. He was able to squeeze my fingers with his left hand. is teary-eyed as she does not know how she is going to take care of him because she has to go back to work to support her children. Pt Continues to spike fevers Exam Vital Signs Vital Sign - Last Date Time Temp Pulse Resp B/P Pulse Ox O2 Delivery O2 Flow Rate FiO2 09/06/16 18:15 Supplement Oxygen 09/06/16 18:15 37.7 89 22 137/80 97 09/02/16 11:17 2.00 Intake and Output 09/05/16 09/05/16 09/06/16 Cumulative From/Thru 15:00 23:00 07:00 08/23/16 05:20 - 09/05/16 19:12 Intake Total 2536 ml 13537 ml Output Total 2750 ml 44949 ml Balance -214 ml 7719 ml Intake Oral 0 ml 10 ml IV Total 1469 ml 98624 ml Tube Feeding 767 ml 9311 ml Tube Irrigant 300 ml 3810 ml Output Urine Total 2750 ml 87541 ml Stool Total 4940 ml Gastric Drainage Total 1070 ml Ultrafiltrate 4700 ml # Bowel Movements 11 Exam Gen.: Patient is heavily sleeping as usual HEENT: Normocephalic, atraumatic Heart: Regular rate and rhythm no S3-S4 sounds Lungs: He does have somewhat of an apneic found and he sleeps, concern for sleep apnea, diffuse rales Extremities: Negative for edema Vascular: Palpable pedal pulses Neurological: Minimally responsive to pain, squeezed fingers, eyes are tracking IVs and Medications IV Fluids Fluids per nephrology D5 0.225 and emesis the 20 MB every 125 mL/h Medications Reviewed: Medications were reviewed in detail Lab and Diagnostics Result Diagram: 09/06/16 0635 09/06/16 0635 Microbiology Blood cultures pending MRSA swab pending X-Rays, CTs and MRIs 08/23/16 PROCEDURE: CT BRAIN WITHOUT CONTRAST ([id number]) IMPRESSION: No acute disease. 08/23/16 PROCEDURE: X-RAY CHEST ONE VIEW, PORTABLE ([id number]) IMPRESSION: Endotracheal tube appropriate in position. No focal infiltrate or abnormality is seen in the lungs. Additional Diagnostics ABG DateTimeAnalyzed 10:20:00 -_ pH ____7.354 - 7.350 7.450 pCO2 ___31.5__ -mmHg 35.0 45.0 pO2 160 -mmHg 69.0 116 HCO3- ___17.1__ -mmol/L 22.0 26.0 FIO2 ___45.0__ -% PRVC 20 - PEEP ____8.0__ -cmH2O Assessment & Plan Santiago Ann is a 41 year old male with no known past medical history who came in unresponsive after being found with vomit around him, sedated and intubated for acute hypoxemic respiratory failure secondary to aspiration for 5 days and extubated on hospital day 6 following successful spontaneous breathing trial. He remains awake and severally limited in ability to move proximal/axial muscles. Anoxic Brain Injury, present on admission, active Secondary to aspiration and intoxication. Patient has had large volume of vomit suctioned out in the ED. --Initial EEG shows evidence of slowing but no other abnormalities to suggest that the patient is having clinical seizures causing his symptoms. There is significant metabolic dysfunction. This will require a lot of work for rehab. It 's uncertain how much recovery can be had. - Intubated on 08/23/16, Extubated on 08/28/16 - Zosyn stopped per ID recommendation. - ICU, Infectious disease, Palliative care, neurology and nephrology consults -- Patient was started on tube feeds that were held on 09/06 am due to concern for acute pancreatitis - Physical Therapy, Occupational therapy and Speech eval when appropriate. --Swallow therapy feels pt making minor improvements - Palliative care is involved to help this unfortunate pt and his family, we appreciate their recommendations - Neurology recommends repeat EEG to for comparison. I called Dr. guillamue on who has read the follow-up EEG, he feels that there has been an improvement even though he is remarkable for encephalopathy due to anoxic brain injury versus infectious etiologies. He feels that there might be some improvement in patient's status though he will never regain his previous functional status. Patient's seems to be thinking that patient will get back to his normal life, informed Dr. guillaume of this. He says he will see the patient this evening and will discuss case with them. I called Dr. guillaume again on 09/03/16 at 50 point he mentioned to me that small improvement in patient's mental status of positive, but patient will not return to his baseline function and physical abilities. I conveyed this to the family, states that she does not believe that her would not be fully functionally back to normal. She says she believes in the power of positive thinking. She is also concerned about how to support him with any ongoing rehabilitation efforts at home, she asks about health-related discussions to be taken place outside of the room since the patient will not be included in such discussions. She feels that this discussions might make her depressed, and he will be less likely to participate in his rehabilitation efforts. Fevers, ongoing -- Fevers could be because of central etiology for neurology -- Blood cultures are so far negative -- LFTs and lipase are slowly improving. UA is negative -- Chest x-ray still looks to have aspiration pneumonia, patient is currently on ertapenem. Consider chest CT to see if this is causing fevers -- Consider taking the PICC line out and culturing if blood cx are positive Acute hyponatremia 09/06 -- Fluids per nephrology d5 0.225 and assessment 20 Meq 100 cc/hr Acute Cholecystitis, active -- Patient is worsened white count 20.2 on 09/04, tender down to 18.7 on 09/05 continued fevers, due to acute cholecystitis based on HIDA scan and abdominal CT -- Cont ertapenem -- Under HIDA scan (" Nonvisualization of the gallbladder suggesting acute cholecystitis"), abdominal CT ("1. Small left pleural effusion with left lower lobe consolidation likely representing pneumonia. Cholelithiasis with probable cholecystitis due to the nonvisualization of the gallbladder on recent HIDA scan. Nonspecific presacral soft tissue thickening. ) -- LFTs remained relatively stable negative for hyperbilirubinemia -- Gen. surgery was consulted, Dr. Dash 's in the patient: " I suspect he has hadthis inflammatory process for the past two days. It does not seem well controlled with antibiotics. Given his down-trending lipase, I would beinclined to recommend a laparoscopic cholecystectomy except for the severity ofhis anoxic brain injury and his pulmonary status. I have discussed the optionswith the family and recommended a cholecystostomy tube. I have offered them a2nd opinion as there are some surgeons who might think that a laparoscopiccholecystectomy was the appropriate way to go, but I think a cholecystostomytube with continued intravenous antibiotics is in the patient's best interest.I also think we should hold his tube feedings to make him n.p.o. until hislipase starts coming down. General Surgery will continue to follow the patientand hopefully if he makes a good recovery he would be a candidate for anelective laparoscopic cholecystectomy 3-[address] prior to removal of his cholecystostomy tube." -- 09/06 Dr. garrett spent considerable amount of time investigating the cause cystostomy with Dr. Goss from radiology. According to him, the gallbladder is quite small, and the risk of perforating is high with cholecystostomy. If the patient is clinically improving and the pancreatitis is improving may not have to do this procedure urgently, he also feels that acute cholecystitis unlikely with a small gallbladder, as the stone has left and may be causing pancreatitis. Will discuss MRCP. -- TPN is discontinued on 09/06 AM as this is thought to be worsening his cholecystitis and pancreatitis Acute galstone Pancreatitis, active -- 09/05 lipase showed lipase of 763 to 597--> 607 -- Continue IV fluids -- Surgery is consulted we appreciated their recommendations as well, they are discussing case with IR Metabolic Acidosis, present on admission, active Likely secondary to lactic acidosis and uremia - Monitor CMP: Rhabdomyolysis, present on admission, [place] [id number]. Likely secondary to being in one position for 9 hours. Patient has large erythematous regions at pressure points of sacrum and upper thorax with open wound at sacrum. - Wound care consult Acute Kidney Injury, present on admission, improving Cr on admission at 3.52 and increasing after admission. Unknown history of kidney injury. - Nephrology (Dr. Haynes) currently following case. Hemodialysis done daily since 08/25/16 till 1-2 days ago. No longer an hemodialysis currently is catheter is removed - Nephrology has a good hydration protocol with IV fluids --Nephrology culture the dialysis catheter tip. This showed no growth to date --Patient is not currently receiving dialysis, patient is improving, nephrology does not feel he needed any further dialysis --09/05 nephrology Recs "continue his aggressive fluid replacement to match his urine output. We will also need to continue to monitor his potassium has been magnesium and phosphorus over the next several days." Hyperkalemia, present on admission, resolved - Continue to monitor Elevated Liver Function Tests, present on admission, improving Likely due to chronic alcohol use vs acute cholecystitis - Currently leveling off - Continue to monitor Alcohol dependence -Patient currently sedated no need to institute CIWA protocol at this time Drug dependence -Patient is a known user of cocaine and ice -Per family, last known use is around 5 months ago. Acetaminophen for mild pain when necessary. Bowel regimen Senna and MiraLAX scheduled and PRN. Zofran when necessary for nausea and vomiting. SubQ heparin for now. SCDs in place. Social: Patient is an undocumented immigrant. However he may be eligible for Emergent Alien Inpatient resources. He may not have resources for outpatient care. Family does not seem to be understanding of his prognosis, is expecting that he would recover completely. We will continue discussions. Palliative care. On 09/05, physical therapy has seen the patient still recommends intermediate facility via BLS transfer [employer] has a number . [facility]. Patient's could potentially call this number for any financial help she could receive possibly even if she is not interested in hospice services? Disposition: Likely here for > 2 midnights. Dependent upon anoxic brain injury. GI Prophylaxis: Not indicated (Patient extubated) VTE Mechanical Devices: Intermittant Pneumatic CD Time spent 25 minutes Minerva Wilson DO Sep 06, 2016 21:00 Palliative care. On 09/05, physical therapy has seen the patient still recommends intermediate facility via BLS transfer surgical services director has a number . [facility]. Patient's could potentially call this number for any financial help she could receive possibly even if she is not interested in hospice services? Disposition: Likely here for > 2 midnights. Dependent upon anoxic brain injury. GI Prophylaxis: Not indicated (Patient extubated) VTE Mechanical Devices: Intermittant Pneumatic CD Time spent 25 minutes Minerva Wilson DO Sep 06, 2016 21:00
[2016-09-06] MEDS: Micafungin Inj 100 MG in 0.9% Sodium Chloride 100 ML IV SCH (21:57)
[2016-09-07] MEDS: Heparin 5,000 Unit/mL Inj SUBQ SCH ×3 (00:43→16:50)
[2016-09-07] MEDS: Acetaminophen 32.5 mg/mL 20 mL Liquid PO PRN (03:23)
[2016-09-07 03:29] VITALS: BP 144/76; PULSE 89; RESP 18; O2SAT 95
--- NOTE | 2016-09-07 04:17 | NUR ---
Sedation/Output/Fever Pt sedated; very little to no response to stimuli. Only the slightest expression change with q2hr turns. FMS bag changed, drained 500mls. Espinoza draining to gravity 350mls. Flush q6hrs with 300mls per order. Febrile overnight 38.2-38.4, Tylenol given with little change. Physician paged and is aware.
--- NOTE | 2016-09-07 04:22 | NUR ---
37.9 post cold wet washrags
[2016-09-07 06:06] LABS: Mean Corpuscular Hemoglobin 28.8 pg (27.0-35.0); Mean Corpuscular Volume 93.4 fL (81-100)
--- NOTE | 2016-09-07 06:11 | NUR ---
Activity! Approx 0600 Pt spontaneously opened eyes, was corresponding in Omani with his in small short sentences. When I came into the room he looked into my eyes and clearly said "Good Morning" in ukrainian, then "thank you" for caring for him and smiled. When asked if he was in any pain, he responded in Omani "Not at this time". After a hug with his , I left them to themselves for a bit, while she continued counting in ukrainian to him, and working on getting him to respond and understand where he was.
[2016-09-07 06:18] LABS: Magnesium 1.7 mg/dL (1.6-2.6)
--- NOTE | 2016-09-07 06:30 | NUR ---
Skin 2 RN skin check done and noticed that fecal matter leaked under Mepalex on sacral area. Mepalex removed, area gently cleaned with saline rinse and wipes, then new Mepalex applied. Request for Wound care consult for better plan will be given to day shift to keep area clean and dry.
--- NOTE | 2016-09-07 06:40 | NUR ---
Critical Lab Value Per Lab, Critical Lab Value K 6.3 Physician paged.
[2016-09-07] MEDS: Dextrose 5% 0.225% NaCl 1,000 ML IV SCH ×3 (06:45→23:36)
[2016-09-07] MEDS: Thiamine Inj 200 MG in Dextrose 5% 50 ML IV SCH (09:24)
[2016-09-07] MEDS: AMANTADINE 10 MG/ML TUBE SCH (09:24)
[2016-09-07 09:34] VITALS: BP 134/83; PULSE 80; RESP 18; O2SAT 98
--- NOTE | 2016-09-07 09:47 | PCM.PNSURG ---
Subjective Date of Service: Sep 07, 2016 Visit Information: Anoxic/Brain Injury Pancreatitis, possible cholecystitis Date of Admission: Aug 23, 2016 at 07:01 Hospital Day # 16 Subjective: More awake, denying pain, off feeds Objective Vital Sign- Last 8 Hours Date Time Temp Pulse Resp B/P Pulse Ox O2 Delivery O2 Flow Rate FiO2 09/07/16 05:23 38.4 09/07/16 04:21 37.9 09/07/16 04:05 38.4 09/07/16 03:29 38.2 89 18 144/76 95 Room Air Intake and Output- Last 8 Hour 09/07/16 Cumulative From/Thru 07:00 08/23/16 05:20 - 09/07/16 06:09 Intake Total 1431 ml 22678 ml Output Total 850 ml 43755 ml Balance 581 ml 5690 ml Intake Oral 0 ml 10 ml IV Total 1131 ml 45120 ml Tube Feeding 75313 ml Tube Irrigant 300 ml 5047 ml Output Urine Total 500 ml 88739 ml Stool Total 350 ml 7740 ml Gastric Drainage Total 0 ml 1070 ml Ultrafiltrate 4700 ml # Bowel Movements 11 Abdomen: Soft Result Diagram: 09/07/16 0520 09/07/16 0520 Assessment & Plan Impression Acute Pancreatitis Cholecystitis could be more chronic Problems: Plan Small contracted gallbladder seen on imaging is not amenable to drainage by IR per Dr. Kang Recommended repeating US today I suspect chronic cholecystitis much more likely than an acute process based on imaging so far. Conservative Rx for pancreatitis Might be worth getting an MRCP if pancreatic enzymes do not start to trend down over the next 48 hrs. Will continue to follow. Zeinab Solis MD Sep 07, 2016 09:47
[2016-09-07] MEDS ORDERED: Desmopressin Inj 21 MCG in 0.9% Sodium Chloride 50 ML IV ONE (10:40)
--- NOTE | 2016-09-07 11:19 | PCM.PNNEPH ---
Subjective Date of Service Sep 07, 2016 Subjective Patient continues to have a profound diuretic phase of his acute kidney injury. He is also having increase in his sodium and potassium. In the last 24 hours she should 4965. And 7575 out. He is still remains minimally responsive. His sodium is 152, potassium 6.3, chloride 118, bicarbonate 17, BUN and creatinine were 80 and 3.43 respectively. His glucose is 113 and hemoglobin was 10.4. I feel that he may have a component of either nephrogenic or central diabetes insipidus most likely this is secondary to the anoxic encephalopathy which could lead to a central DI healing from his acute kidney injury which could lead to a nephrogenic DI. Due to his recovering renal function and creatinine of 3.42 I am unsure as to the accuracy of any urine studies at this time. Exam Vital Signs Vital Sign - Last Date Time Temp Pulse Resp B/P Pulse Ox O2 Delivery O2 Flow Rate FiO2 09/07/16 09:34 37.5 80 18 134/83 98 Room Air 09/02/16 11:17 2.00 Intake and Output 09/06/16 09/06/16 09/07/16 Cumulative From/Thru 15:00 23:00 07:00 08/23/16 05:20 - 09/07/16 06:09 Intake Total 2816 ml 2149 ml 1431 ml 10927 ml Output Total 3475 ml 4100 ml 850 ml 39540 ml Balance -659 ml -1951 ml 581 ml 5690 ml Intake Oral 0 ml 10 ml IV Total 1508 ml 1387 ml 1131 ml 09847 ml Tube Feeding 708 ml 425 ml 59336 ml Tube Irrigant 600 ml 337 ml 300 ml 5047 ml Output Urine Total 3075 ml 2050 ml 500 ml 59440 ml Stool Total 400 ml 2050 ml 350 ml 7740 ml Gastric Drainage Total 0 ml 1070 ml Ultrafiltrate 4700 ml # Bowel Movements 11 Exam Neck is supple without adenopathy, thyromegaly, or jugular venous distention. Lungs are clear to auscultation. Heart was regular and rhythmical with a soft systolic murmur. Abdomen soft without any tenderness or rebound guarding masses or hepatosplenomegaly. She is not shown evidence for any clubbing, cyanosis, or edema. Skin turgor is good. Lab and Diagnostics Result Diagram: 7/30/17 0520 7/30/17 0520 Microbiology Blood cultures pending MRSA swab pending X-Rays, CTs and MRIs 08/23/16 PROCEDURE: CT BRAIN WITHOUT CONTRAST ([id number]) IMPRESSION: No acute disease. 08/23/16 PROCEDURE: X-RAY CHEST ONE VIEW, PORTABLE ([id number]) IMPRESSION: Endotracheal tube appropriate in position. No focal infiltrate or abnormality is seen in the lungs. 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 Recommendations #1 I would like to continue him on the D5 quarter normal saline and increases to 125 per hour. I would also like to give him 500 mg of Diuril IV and 21 g of DDAVP IV. We will continue to follow his intake, output, and laboratory values. Ace Whatley DO Sep 07, 2016 11:18
[2016-09-07 12:30] VITALS: BP 133/85; PULSE 91; RESP 18; O2SAT 97
--- NOTE | 2016-09-07 13:58 | DRSVH ---
PROCEDURE: CT CHEST WITHOUT CONTRAST ([id number]) INDICATIONS: 41 year-old male with possible abscess. TECHNIQUE: Intravenous contrast was not able to be administered, due to patient's low estimated GFR level. Nonco ntrast 5 mm thick sections acquired from the pulmonary apices to the posterior costophrenic angles. 7 mm thick coronal and sagittal MIP reformats were then acquired. For radiation dose reduction, the following was used: automated exposure control, adjustment of mA and/or kV according to patient size . COMPARISON: [facility], CT, CT ABD PELVIS WO CON, 09/04/2016, 18:54. FINDINGS: Image quality: Excellent. Lungs and pleura: No acute air space opacities. Small basal left pleural effusion is unchanged, with left lower lobe compressive atelectasis. Linear scarring is also noted within the posterior left upp er lobe. Right lung is clear. No pneumothorax. Central and peripheral airways are patent and normal i n caliber. Mediastinum: Heart size is normal. No pericardial effusion. No mediastinal adenopathy by size crit eria. Thoracic aorta and central pulmonary arteries are normal in size. Esophagus is normal in antonino harriet. No hiatal hernia. Nasogastric tube is in expected position. Bones and chest wall: No suspicious bony lesions. No vertebral body compression fractures. There i s thoracic spine diffuse idiopathic skeletal hyperostosis. No axillary or supraclavicular adenopathy by size criteria. Thyroid gland is normal in size. Abdomen: Visualized upper abdominal solid organs and bowel loops appear normal in the absence of con trast. IMPRESSION: Small basal left pleural effusion is unchanged, with associated left lower lobe compressive atelectas is. Superimposed pneumonia therefore cannot be excluded. Dictated by: Binh Ochoa M.D. on 09/07/2016 at 13:47 Approved by: Binh Ochoa M.D. on 09/07/2016 at 13:55
--- NOTE | 2016-09-07 15:49 | NUR ---
TESTS/NURSING DAY Patient had CT of chest today (+) for left pleural effusion vs PNE. Dr Whatley in and doing test for DI (central vs kidney). K+ 6.3, aware. Surgery ordered u/s of abdomen that has not been done yet looking for pancreatic duct blockage vs choli. Blood cultures sent x4 and pending. PT in working with patient and patient sat on edge of bed for 12 minutes. Neuro, this am nurse witnessed patient taking to and interacting with staff.
[2016-09-07 16:51] VITALS: BP 135/87; PULSE 94; RESP 16; O2SAT 97
--- NOTE | 2016-09-07 19:37 | DRSVH ---
CORRECTED ACCESSION/PLACER NUMBER ON 09/08/16 PROCEDURE: US ABDOMEN, LIMITED ([id number]) INDICATIONS: 41 year-old male with possible cholecystitis. TECHNIQUE: Real-time focused scanning was performed of the abdomen, with image documentation. COMPARISON: [facility], CT, CT ABD PELVIS WO CON, 09/04/2016, 18:54. [facility] [place], [place], NM HIDA SCAN W CCK STD, 09/04/2016, 14:32. [facility], US, US ABDOMEN, 08/29/2016 , 18:58. FINDINGS: 2 shadowing gallstones are again noted. Gallbladder wall thickness is currently within norm al limits at 2.7 mm. No pericholecystic fluid. Sonographic Pittman's sign was unable to be evaluated d ue to patient's clinical state. Extrahepatic bile duct is nondilated at 2.9 mm. IMPRESSION: Cholelithiasis, without justin gallbladder wall thickening to suggest acute cholecystitis at this time. Dictated by: Binh Ochoa M.D. on 09/07/2016 at 19:33 Approved by: Binh Ochoa M.D. on 09/07/2016 at 19:35
[2016-09-07] MEDS: Ertapenem Inj 500 MG in 0.9% Sodium Chloride 50 ML IV SCH (19:58)
[2016-09-07 20:15] VITALS: BP 135/82; PULSE 86; RESP 18; O2SAT 95
[2016-09-07 20:19] VITALS: PULSE 84
--- NOTE | 2016-09-07 21:00 | PCM.PNMED ---
Subjective Date of Service Sep 07, 2016 Subjective Patient is examined. He is minimally responsive. Mostly sleeping Exam Vital Signs Vital Sign - Last Date Time Temp Pulse Resp B/P Pulse Ox O2 Delivery O2 Flow Rate FiO2 09/07/16 20:19 84 09/07/16 16:51 37.7 16 135/87 97 Room Air 09/07/16 12:30 2.00 30 Intake and Output 09/06/16 09/06/16 09/07/16 Cumulative From/Thru 15:00 23:00 07:00 08/23/16 05:20 - 09/07/16 06:09 Intake Total 2816 ml 2149 ml 1431 ml 82247 ml Output Total 3475 ml 4100 ml 850 ml 58102 ml Balance -659 ml -1951 ml 581 ml 5690 ml Intake Oral 0 ml 10 ml IV Total 1508 ml 1387 ml 1131 ml 40837 ml Tube Feeding 708 ml 425 ml 02018 ml Tube Irrigant 600 ml 337 ml 300 ml 5047 ml Output Urine Total 3075 ml 2050 ml 500 ml 48616 ml Stool Total 400 ml 2050 ml 350 ml 7740 ml Gastric Drainage Total 0 ml 1070 ml Ultrafiltrate 4700 ml # Bowel Movements 11 Exam General: Somnolent HEENT: NCAT Heart: RRR, no s3/s4 sounds Lungs: no wheezing Abd: NT/ND, bowel sounds are present Ext: No edema Vasc: Palpable pedal pulses Neuro:minimally responsive to verbal IVs and Medications Medications Reviewed: Medications were reviewed in detail Lab and Diagnostics Result Diagram: 09/07/16 0520 09/07/16 0520 Microbiology Blood cultures pending MRSA swab pending X-Rays, CTs and MRIs 08/23/16 PROCEDURE: CT BRAIN WITHOUT CONTRAST ([id number]) IMPRESSION: No acute disease. 08/23/16 PROCEDURE: X-RAY CHEST ONE VIEW, PORTABLE ([id number]) IMPRESSION: Endotracheal tube appropriate in position. No focal infiltrate or abnormality is seen in the lungs. Additional Diagnostics ABG DateTimeAnalyzed 10:20:00 -_ pH ____7.354 - 7.350 7.450 pCO2 ___31.5__ -mmHg 35.0 45.0 pO2 160 -mmHg 69.0 116 HCO3- ___17.1__ -mmol/L 22.0 26.0 FIO2 ___45.0__ -% PRVC 20 - PEEP ____8.0__ -cmH2O Assessment & Plan Santiago Ann is a 41 year old male with no known past medical history who came in unresponsive after being found with vomit around him, sedated and intubated for acute hypoxemic respiratory failure secondary to aspiration for 5 days and extubated on hospital day 6 following successful spontaneous breathing trial. He remains awake and severally limited in ability to move proximal/axial muscles. Anoxic Brain Injury, present on admission, active Secondary to aspiration and intoxication. Patient has had large volume of vomit suctioned out in the ED. --Initial EEG shows evidence of slowing but no other abnormalities to suggest that the patient is having clinical seizures causing his symptoms. There is significant metabolic dysfunction. This will require a lot of work for rehab. It 's uncertain how much recovery can be had. - Intubated on 08/23/16, Extubated on 08/28/16 - Zosyn stopped per ID recommendation. - ICU, Infectious disease, Palliative care, neurology and nephrology consults -- Patient was started on tube feeds that were held on 09/06 am due to concern for acute pancreatitis - Physical Therapy, Occupational therapy and Speech eval when appropriate. --Swallow therapy feels pt making minor improvements - Palliative care is involved to help this unfortunate pt and his family, we appreciate their recommendations - Neurology recommends repeat EEG to for comparison. I called Dr. guillaume on who has read the follow-up EEG, he feels that there has been an improvement even though he is remarkable for encephalopathy due to anoxic brain injury versus infectious etiologies. He feels that there might be some improvement in patient's status though he will never regain his previous functional status. Patient's seems to be thinking that patient will get back to his normal life, informed Dr. guillaume of this. He says he will see the patient this evening and will discuss case with them. I called Dr. guillaume again on 09/03/16 at 50 point he mentioned to me that small improvement in patient's mental status of positive, but patient will not return to his baseline function and physical abilities. I conveyed this to the family, states that she does not believe that her would not be fully functionally back to normal. She says she believes in the power of positive thinking. She is also concerned about how to support him with any ongoing rehabilitation efforts at home, she asks about health-related discussions to be taken place outside of the room since the patient will not be included in such discussions. She feels that this discussions might make her depressed, and he will be less likely to participate in his rehabilitation efforts. 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 Nephrology -- Nephrology ordered D5 quarter normal saline and increases to 125 per hour. 500 mg of Diuril IV and 21 g of DDAVP IV Acute hyponatremia, worsened -- To be secondary to nephrogenic versus central diabetes insipidus -- Nephrology ordered D5 quarter normal saline and increases to 125 per hour. 500 mg of Diuril IV and 21 g of DDAVP IV -- Continue to follow nephrology recommendations Acute hypocalcemia active -- Corrected calcium is greater than 8.3 -- Continue to monitor Fevers, ongoing, thought to be central -- Fevers could be because of central etiology for neurology -- Blood cultures are so far negative -- LFTs and lipase are slowly improving. UA is negative -- Chest x-ray still looks to have aspiration pneumonia, patient is currently on ertapenem. Chest CT ordered on 09/07 that showed no changes from the chest x- ray.:"Small basal left pleural effusion is unchanged, with associated left lower lobe compressive atelectasis. Superimposed pneumonia therefore cannot be excluded." -- Consider taking the PICC line out and culturing if blood cx are positive Acute Cholecystitis, active -- Patient is worsened white count 20.2 on 09/04, tender down to 18.7 on 09/05 continued fevers, due to acute cholecystitis based on HIDA scan and abdominal CT -- Cont ertapenem -- Under HIDA scan (" Nonvisualization of the gallbladder suggesting acute cholecystitis"), abdominal CT ("1. Small left pleural effusion with left lower lobe consolidation likely representing pneumonia. Cholelithiasis with probable cholecystitis due to the nonvisualization of the gallbladder on recent HIDA scan. Nonspecific presacral soft tissue thickening. ) -- LFTs remained relatively stable negative for hyperbilirubinemia -- Gen. surgery was consulted, Dr. Dash 's in the patient: " I suspect he has hadthis inflammatory process for the past two days. It does not seem well controlled with antibiotics. Given his down-trending lipase, I would beinclined to recommend a laparoscopic cholecystectomy except for the severity ofhis anoxic brain injury and his pulmonary status. I have discussed the optionswith the family and recommended a cholecystostomy tube. I have offered them a2nd opinion as there are some surgeons who might think that a laparoscopiccholecystectomy was the appropriate way to go, but I think a cholecystostomytube with continued intravenous antibiotics is in the patient's best interest.I also think we should hold his tube feedings to make him n.p.o. until hislipase starts coming down. General Surgery will continue to follow the patientand hopefully if he makes a good recovery he would be a candidate for anelective laparoscopic cholecystectomy 3-[address] prior to removal of his cholecystostomy tube." -- 09/06 Dr. garrett spent considerable amount of time investigating the cause cystostomy with Dr. Goss from radiology. According to him, the gallbladder is quite small, and the risk of perforating is high with cholecystostomy. If the patient is clinically improving and the pancreatitis is improving may not have to do this procedure urgently, he also feels that acute cholecystitis unlikely with a small gallbladder, as the stone has left and may be causing pancreatitis. Will discuss MRCP. -- TPN is discontinued on 09/06 AM as this is thought to be worsening his cholecystitis and pancreatitis Acute galstone Pancreatitis, resolved -- 09/05 lipase showed lipase of 763 to 597--> 607 -- Continue IV fluids -- Surgery is consulted we appreciated their recommendations as well, they are discussing case with IR: Surgery and INR field the gallbladder is very small and hence has not yet discussed perforating it is an ostomy tube option. As the rest of his labs that improving the objective weight monitor him at the follow-up right upper quadrant scan on 09/07, and possible CT abdomen on 09/07 minute visit is further concern -- Negative for quadrant scan is ordered:"Cholelithiasis, without justin gallbladder wall thickening to suggest acute cholecystitis at this time. -- Consider MRCP Metabolic Acidosis, present on admission, active Likely secondary to lactic acidosis and uremia - Monitor CMP: Rhabdomyolysis, present on admission, [place] [id number]. Likely secondary to being in one position for 9 hours. Patient has large erythematous regions at pressure points of sacrum and upper thorax with open wound at sacrum. - Wound care consult -- Follow-up total CK is ordered for 09/08 Acute Kidney Injury, present on admission, improving Cr on admission at 3.52 and increasing after admission. Unknown history of kidney injury. - Nephrology (Dr. Haynes) currently following case. Hemodialysis done daily since 08/25/16 till 1-2 days ago. No longer an hemodialysis currently is catheter is removed - Nephrology has a good hydration protocol with IV fluids --Nephrology culture the dialysis catheter tip. This showed no growth to date --Patient is not currently receiving dialysis, patient is improving, nephrology does not feel he needed any further dialysis --09/05 nephrology Recs "continue his aggressive fluid replacement to match his urine output. We will also need to continue to monitor his potassium has been magnesium and phosphorus over the next several days." Hyperkalemia, present on admission, active - 6.4 today - Kayexalate via feeding tube is given per nephro -- Continue to monitor, follow laboratory at 10 p.m. Alcohol dependence -Patient currently sedated no need to institute CIWA protocol at this time Drug dependence -Patient is a known user of cocaine and ice -Per family, last known use is around 5 months ago. Acetaminophen for mild pain when necessary. Bowel regimen Senna and MiraLAX scheduled and PRN. Zofran when necessary for nausea and vomiting. SubQ heparin for now. SCDs in place. Social: Patient is an undocumented immigrant. However he may be eligible for Emergent Alien Inpatient resources. He may not have resources for outpatient care. Family does not seem to be understanding of his prognosis, is expecting that he would recover completely. We will continue discussions. Palliative care. On 09/07, physical therapy has seen the patient still recommends long term facility via BLS transfer. [facility] has a number . [facility] [facility] hospice care. Patient's could potentially call this number for any financial help she could receive possibly even if she is not interested in hospice services? Disposition: Likely here for > 2 midnights. Dependent upon anoxic brain injury. GI Prophylaxis: Not indicated (Patient extubated) VTE Mechanical Devices: Intermittant Pneumatic CD Resuscitation Status: CPR: Attempt Resuscitation ( is ADM) Time spent 25 min Minerva Wilson DO Sep 07, 2016 21:00
[2016-09-07] MEDS: Micafungin Inj 100 MG in 0.9% Sodium Chloride 100 ML IV SCH (21:07)
[2016-09-08] VITALS (8 sets, daily range): BP systolic 124–143; BP diastolic 58–83; PULSE 64–82; RESP 16–20; O2SAT 94–97
[2016-09-08] MEDS: Heparin 5,000 Unit/mL Inj SUBQ SCH ×3 (00:52→17:55)
[2016-09-08] MEDS: Acetaminophen 32.5 mg/mL 20 mL Liquid PO PRN ×3 (00:52→13:36)
[2016-09-08] MEDS: Dextrose 5% 0.225% NaCl 1,000 ML IV SCH ×3 (01:15→17:54)
[2016-09-08 05:15] LABS: Magnesium 2.2 mg/dL (1.6-2.6); Phosphorus 5.1 mg/dL (2.5-4.9)
--- NOTE | 2016-09-08 06:04 | NUR ---
Shift Note assumed pt care at 1900, critical K at 6.3,tele on sinus rhythm, pt received kayexalate, K recheck at 2200 at 5.0, pt responds to verbal stimulation by opening his eyes only, febrile x3 tonight (see vitals grid), night hospitalist aware, no repeat blood cultures for now, q2 turns throughout night.
[2016-09-08 08:08] LABS: Bilirubin, Direct 0.2 mg/dL (0.0-0.3)
[2016-09-08] MEDS ORDERED: 0.9% Sodium Chloride 250 ML ONE (09:21)
[2016-09-08] MEDS: Thiamine Inj 200 MG in Dextrose 5% 50 ML IV SCH (09:27)
[2016-09-08] MEDS: AMANTADINE 10 MG/ML TUBE SCH (09:28)
[2016-09-08] MEDS: Chlorothiazide Inj 500 MG in Dextrose 5% 50 ML IV SCH (10:23)
--- NOTE | 2016-09-08 11:03 | PCM.PNNEPH ---
DORA RIVAS DO 09/08/16 1102: Subjective Date of Service Sep 08, 2016 Subjective Overnight: Potassium elevated to 6.3 with resolution 5.0 post Kayexalate. Continues to respond to verbal stimulation by opening his eyes and remains febrile. He still appears to be in the recovery phrase of his acute kidney injury though his urinary output has decreased to approximately 2 L after the administration desmopressin and chlorothiazide. His sodium continues to remain elevated at 153 today, potassium 4.9 chloride 119 bicarbonate 19 BUN 76 trending down nicely and creatinine 2.9 from 3.4. Surgery consult secondary to acute cholecystitis and suspected gallstone pancreatitis, which up until today 09/08/2016 had not been responding to antibiotics. Per IR gallbladder not amenable to drainage. Physical therapy reportedly was able to have patient sit on the side of his bed for 12 minutes. Nurses report yesterday a increase in his mentation and that he began to speak one to 2 words in [place] and responding appropriately to questions. Today patient awake and alert, 1 word responses to questions though unable to follow motor commands. Exam Vital Signs Vital Sign - Last Date Time Temp Pulse Resp B/P Pulse Ox O2 Delivery O2 Flow Rate FiO2 09/08/16 10:16 80 09/08/16 01:45 37.2 09/08/16 00:00 18 143/82 94 Room Air 09/07/16 12:30 2.00 30 Intake and Output 09/07/16 09/07/16 09/08/16 Cumulative From/Thru 15:00 23:00 07:00 08/23/16 05:20 - 09/08/16 05:58 Intake Total 1371 ml 1542 ml 33363 ml Output Total 2650 ml 2400 ml 79631 ml Balance -1279 ml -858 ml 3553 ml Intake Oral 10 ml IV Total 1071 ml 1542 ml 88551 ml Tube Feeding 100 ml 80101 ml Tube Irrigant 200 ml 5247 ml Output Urine Total 2500 ml 2000 ml 42459 ml Stool Total 150 ml 400 ml 8290 ml Gastric Drainage Total 1070 ml Ultrafiltrate 4700 ml # Bowel Movements 11 Exam General: Lying in hospital bed, spontaneous opening of eyes. Responds with one word sentences though does not follow motor commands. HEENT: Normocephalic, atraumatic. Dry oral mucosa/ chapped lips Neck: No jugular venous distension. Cardiovascular: Regular rate and rhythm with no murmurs, rubs, or gallops appreciated Pulmonary: Decreased lung sounds left lower lobe. Slight crackles appreciated left lower lobe. Normal respiratory effort with no use of accessory muscles. Abdomen: Bowel tones present. Soft, nontender, nondistended. No rigidity and no guarding. No right upper quadrant rebound tenderness with negative Pittman sign. Extremities: No clubbing, cyanosis, edema Skin: Warm to palpation, no rash Lab and Diagnostics Result Diagram: 09/07/16 0520 09/08/16 0445 Microbiology Blood cultures pending MRSA swab pending X-Rays, CTs and MRIs CT BRAIN WITHOUT CONTRAST IMPRESSION: No acute disease. Dictated by: Hemant Gallegos M.D. on 08/23/2016 CT BRAIN WITHOUT CONTRAST IMPRESSION: 1. Diffuse bilateral hypodensity of the globus pallidus. This is a new finding when compared with the study dated 08/23/16. Differential considerations include anoxic injury, carbon monoxide neurotoxicity, excessive alcohol ingestion, and methanol or ethylene glycol ingestion. Dictated by: Dinora Kang M.D. 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 Dictated by: Jacob Mosqueda M.D. on 08/28/2016 CT CHEST WITHOUT CONTRAST IMPRESSION: Small basal left pleural effusion is unchanged, with associated left lower lobe compressive atelectasis. Superimposed pneumonia therefore cannot be excluded. Dictated by: Binh Ochoa M.D. on 09/07/2016 at 13:47 US RENAL SONOGRAM IMPRESSION: No hydronephrosis. Right renal cyst. Dictated by: Shobha Vale M.D. on 08/24/2016 US ABDOMEN IMPRESSION: 1. Cholelithiasis. 2. Mild gallbladder wall thickening. Acute cholecystitis cannot be excluded. 3. Echogenic liver. Finding typically represents fatty infiltration; however, finding is nonspecific and correlation with clinical and laboratory findings is recommended to exclude other etiologies including hepatic cirrhosis. 4. Slightly echogenic right kidney suspicious for developing medical renal disease. Please correlate with clinical and laboratory data. Dictated by: Swathi Jimenes MD, PhD on 08/29/2016 US ABDOMEN, LIMITED IMPRESSION: Cholelithiasis, without justin gallbladder wall thickening to suggest acute cholecystitis at this time. Dictated by: Binh Ochoa M.D. on 09/07/2016 X-RAY CHEST ONE VIEW, PORTABLE IMPRESSION: No acute disease is seen a semiupright portable chest. Tubes are considered appropriate radiographically. Dictated by: Hemant Gallegos M.D. on 08/23/2016 X-RAY CHEST ONE VIEW, PORTABLE IMPRESSION: Support lines as above. Otherwise, no acute pulmonary process. Dictated by: Shobha Vale M.D. on 08/24/2016 X-RAY CHEST ONE VIEW, PORTABLE IMPRESSION: No acute cardiopulmonary disease process. Dictated by: Swathi Jimenes MD, PhD on 08/25/2016 X-RAY CHEST ONE VIEW, PORTABLE IMPRESSION: 1. Left basilar atelectasis. Otherwise lungs are clear. 2. ET and enteric tubes. Dictated by: Jacob Mosqueda M.D. on 08/27/2016 at 9:53 X-RAY CHEST ONE VIEW, PORTABLE IMPRESSION: Stable left basilar atelectasis and support lines. Dictated by: Jacob Mosqueda M.D. on 08/28/2016 at 7:54 Additional Diagnostics ABG DateTimeAnalyzed 10:20:00 -_ pH ____7.354 - 7.350 7.450 pCO2 ___31.5__ -mmHg 35.0 45.0 pO2 160 -mmHg 69.0 116 HCO3- ___17.1__ -mmol/L 22.0 26.0 FIO2 ___45.0__ -% PRVC 20 - PEEP ____8.0__ -cmH2O Plan Impression 1. Acute kidney injury secondary to rhabdomyolysis. Required daily HD x 6, - 08/30, catheter removed 08/30. Urine output now 2 L per day. BUN/ creatinine continued to trend down though less dramatically now 2. Hypernatremia, continues to oscillate between hypernatremic and normal serum sodium. Sodium today 153 3. Rhabdomyolysis, improving. 4. Persistent fevers. 5. Acute hypoxic respiratory failure, resolved. 6. Anoxic brain injury. 7. Acute transaminitis. 8. Cholelithiasis suspected acute cholecystitis. 9. Polysubstance abuse. Plan: - Continue D5 quarter normal saline at 125 mL per hour - Continue with desmopressin 21 g IV twice a day and chlorthalidone 500 mg IV daily - Continue to monitor BMP and urinary output - No indication for hemodialysis this time - Recommend initiating tube feeds or TPN as patient remains hyperthermic and in a catabolic state Ace Whatley DO 09/08/16 1304: Exam Lab and Diagnostics Result Diagram: 09/07/16 0520 09/08/16 0445 Plan Plan: Attending nephrology note patient was seen and examined along with Dr. Reid and we have thoroughly discussed the case and I agree with the above note.. We will continue to see Diuril 500 mg IV once a day along with DDAVP 8 g every 12 hours IV. Also need to continue his hydration with D5 quarter normal saline until he has no improvement in his serum sodium level. DORA RIVAS DO Sep 08, 2016 11:02 Ace Whatley DO Sep 08, 2016 13:04 HD is not indicated at this moment. We will continue IVF replacement to prevent worsening kidney function due to prerenal azotemia. Continue 1/2NS 150 ml/hr and free water flushes 300 ml q 6 hr. Repeat BMP in am. Mo Haynes MD. DORA RIVAS DO Sep 08, 2016 11:02
[2016-09-08] MEDS ORDERED: DESMOPRESSIN 4 MCG/ML IV SCH (11:15)
--- NOTE | 2016-09-08 12:38 | NUR ---
Inpatient Wound Nurse Conversation completed with patient's primary nurse this afternoon. Wounds are progressing and dressings changed appropriately by ns staff. If Mepilex foam sheet dressing does not adhere to gluteal wounds, bordered Mepilex sacral dressing can be used. Barrier ointment should not be used with this product as it will effect adhesion and silicone contact layer. RN aware. [facility] will continue to follow.
[2016-09-08] MEDS: SODIUM CHLORIDE 0.9% IV SCH (12:50)
[2016-09-08] MEDS: DESMOPRESSIN IV SCH (12:50)
--- NOTE | 2016-09-08 14:24 | PROG NOTE ---
[address] [address] PROGRESS NOTE PATIENT: SANDY SOSA : 1975 MR#: [id number] ADMIT: 08/23/2016 JOB ID: [id number] DATE: 09/08/2016 REASON FOR FOLLOWUP: Persistent fevers. INTERVAL HISTORY: I last saw this patient nine days ago, prior to going on vacation. At the time I left, we were stopping his broad-spectrum antibiotics which have been aimed at aspiration pneumonia. At that point, I felt that most likely his persistent fevers, which had been present since admission, were due to central fevers on the basis of his anoxic brain injury. During my nine-day absence, these fevers have continued without much change. There has been some elevation of his LFTs and suspicion about possible cholecystitis, which was suggested by HIDA scan as well as ultrasound and CT scan. More recent imaging has shown that it appears that he has a contracted gallbladder, more consistent with perhaps chronic cholecystitis than acute, and Surgery and IR have both declined to do anything interventional with respect to his gallbladder. Additionally, he has had off-and-on elevation of his pancreatic enzymes suggesting possible pancreatitis, though CT scan done a few days ago did not show any anatomic basis for these elevated pancreatic enzymes. The patient was restarted about six or seven days ago in my absence on ertapenem and micafungin for possible significant bacterial or fungal infection. These have had little impact on his fever curve. Neurologically, the patient remains profoundly impaired. He apparently tracks at times and may occasionally smile and there have been reports that he has been able to move his left upper extremity a little bit, but in general, he has been spent most of his time in the nonwaking state and does not initiate much in the way of movement. He is certainly not able to sit or stand or do much volitional during his 16-1/2 days here in the hospital. PHYSICAL EXAMINATION: Reveals a gentleman who is continuously febrile and has been since his admission 16-1/2 days ago. He was 38.3 at midnight, though he is down to 37.2 now. Pulse 80, respiratory rate 18, blood pressure 143/82. He is saturating well on room air. The patient does not rouse when I examine him at all this afternoon and he is on no sedating agents. His eyes are without notable abnormality. He does not have any supplemental oxygen and his neck is supple. His lungs are relatively clear bilaterally. Cardiac tones: Regular rate and rhythm without murmur. The abdomen is soft and there is no tenderness or mass appreciated, including in the right upper quadrant. He still has a Espinoza catheter. Penis and scrotum appear normal. The extremities are well perfused, but they are flaccid and one can pickers material handlers his arm and drop it and it will fall towards his face or any other location without any effort on his part to deflect its course. No skin rashes noted. LABORATORIES: Include white blood count 13,000 today. His creatinine 2.96. Sodium 153. ALT is 99 and declining. Lipase is 499 and declining. Note that it has been elevated for at least five days. Urinalysis without white cells. Fungitell, QuantiFERON Gold, HIV and hep C all negative. Micro studies have been negative since admission and include over 20 blood culture bottles, all of which are negative including some done yesterday. Additionally, we have negative MRSA screens, and negative C. diff. IMAGING: Includes an abdominal pelvic CT done four days ago, which showed a small left pleural effusion with compressive atelectasis or pneumonia, as well as cholelithiasis with possible cholecystitis. A chest CT done yesterday showed a small left pleural effusion with what appears to be compressive atelectasis. An abdominal ultrasound done yesterday showed cholelithiasis without justin gallbladder wall thickening to suggest acute cholecystitis. IMPRESSION: This is an extremely difficult case of an unfortunate, 41-year-old gentleman who was found down and has sustained a very severe anoxic brain injury. At this point, major improvement in neurologic function seems unlikely. From an Infectious Disease point of view, the patient has had fevers going on 17 consecutive days. These have shown little variation with respect to broad-spectrum antibiotics, which were initially given for aspiration pneumonia, now for possible gallbladder disease. I think it is unlikely that there is significant infection still present. His fevers are likely on the basis of his anoxic brain injury, though it is possible that they could be at least in part due to underlying pancreatitis, but I am inclined to think there is not infection present. RECOMMENDATIONS: 1. This case was discussed at the bedside with Dr. Wilson. 2. MRCP will be done today to better evaluate the right upper quadrant. 3. Assuming the MRCP does not show much evidence of infection, will strongly consider stopping antibiotics tomorrow. 4. Procalcitonin has been ordered for today to help facilitate our decision-making.
--- NOTE | 2016-09-08 14:54 | PCM.PNSURG ---
Subjective Date of Service: Sep 08, 2016 Date of Service: Sep 08, 2016 Visit Information: Reason for Visit Anoxic/Brain Injury - resolving chronic cholecystitis & acute pancreatitis Surgery/Surgery Date Post-Op Day # Date of Admission: Aug 23, 2016 at 07:01 Hospital Day # 16 Subjective: Patient nonresponsive in bed today; however his reported subtle reactions to physical manipulation earlier. He is not eating regularly. Postop General: No Complaints Pain Management: No or Minimal Pain Neurological: Other (nonresponsive to verbal stimulation) Objective Vital Sign- Last 8 Hours Date Time Temp Pulse Resp B/P Pulse Ox O2 Delivery O2 Flow Rate FiO2 09/08/16 10:16 80 Intake and Output- Last 8 Hour 09/08/16 Cumulative From/Thru 07:00 08/23/16 05:20 - 09/08/16 05:58 Intake Total 1542 ml 11848 ml Output Total 2400 ml 08825 ml Balance -858 ml 3553 ml Intake Oral 10 ml IV Total 1542 ml 94590 ml Tube Feeding 23097 ml Tube Irrigant 5247 ml Output Urine Total 2000 ml 89019 ml Stool Total 400 ml 8290 ml Gastric Drainage Total 1070 ml Ultrafiltrate 4700 ml # Bowel Movements 11 Abdomen: Soft, Non-tender Neuro: Other (nonresponsive to verbal stimulation) Result Diagram: 09/07/16 0520 09/08/16 0445 Diagnostics: Ultrasound showed nonenlarged gallbladder. Assessment & Plan Impression Primary Diagnosis: 1. Status post anoxic brain injury 2. Acute Pancreatitis 3. Chronic cholecystitis resolving 4. Acute kidney injury Other Medical Problems: Alcohol abuse Problems: Plan 1. General surgery will continue to follow for now. 2. Agree with Attending Dr. Minerva Wilson M.D. plans to consider TPN & consult GI for possible ERCP. 3. Repeat a.m. labs including lipase. VTE Prophylaxis: Sub-Q Heparin (Unfractionated), SCDs Resuscitation Status: CPR: Attempt Resuscitation ( is ADM) Jack Patel PA-C Sep 08, 2016 14:53
--- NOTE | 2016-09-08 15:08 | PCM.PALLBR ---
Palliative Care Recommendation Summary of palliative recommendations: -Symptom management (Pain/other): per attending -DPOA/Advanced Directives/POLST: 1. FULL Code 2. is designated decision maker. 3. No prior paperwork for AD or POLST. -Family/emotional support: strong support from large, local family. -Spiritual support: family is Mosque and the culture of Catholicism and regular mass attendance is part of their life. They don't want a research tech to visit at this time as they feel, if the patient knew he would panic and think he is dying. Patient/Family Goals: Pt unable to make any decision due to severity of his injury. Patient's Stella, his designated decision maker, and his family, want all possible interventions to help pt get back to his baseline health. 09/08: Family meeting today with Yaneth Prieto, Fanny Nashepreter and Stella, pt's sister Guillermina and his mother Cyndi in a room outside pt's room (per 's request). Both Hazel Mcmahan and Yaneth examined pt prior to meeting. 1. Dr. Mcmahan gave his opinion (based on exam and imaging) that Mr. Ann may gain enough awareness to participate in a limited way, to speak a few words and acknowledge some family members at times. However, the imaging suggests that he will not likely be able to move his arms and legs. And it is unclear, how much understanding or speech he may regain. He will need others to care for him, feed him, clean him, dress him. Dr. Wolfe agreed and reiterated the clinical opinion that he will need caregivers around the clock. 2. expressed her opinion that she knows her better as a human being than the medical team and believes that he understands a lot of what she tells him. She is sure he will get heal to a much greater degree than the doctors are predicting. 3. After Dr. Mcmahan left, Dr. Minerva Wilson arrived and gave further information about Mr. Ann. His gallbladder is improving, but his pancreas is now inflamed. She will change his antibiotics and get an imaging for the pancreas then a GI consult for recommendations. 4. Family asked about inpatient rehab or PT for pt in his home. BLANCA Emanuel, gently explained to family that Mr. Ann's form of insurance only covers emergency care in hospital (because he is not a resident of [place] and no aftercare as an outpatient or chcf pt. Family asked about paperwork for financing the emergency care here at [facility]. Ms. George will refer them to Case Management. 5. Family asked about moving pt to [place] for more aftercare. Again, they were referred to Case Management who will work with family to explore options. 6. Family asked about feeding pt by mouth, and said ST had seen pt today, and Mr. Ann could take small amount of ice chips in mouth. Pall Care Team agrees that is a good step but not sufficient to give him the calories he needs and that tube feeding by nose may need to continue for a while. We also asked family re: possible PEG if needed in future, and they favor PEG placement if needed. 7. Family seems to have difficulty understanding the impaired consciousness that Mr. Ann has now. He is awake for a few minutes and then spends long periods with decreased LOC, appearing to be asleep but not awakening with deep sternal rub. Dr. Wolfe described this and tried to explain that this brain injury may have long periods of unconsciousness with short periods of arousal but the person may not be truly aware of who they are, where they are, who is around them. This may go on with some improvements, but not back to his prior level of well-being before his brain injury. It is not clear that family grasps this information. Medical team will likely have to continue to support them with further counseling. (Time spent in this conference: 70 minutes, 12noon-1:10pm) 09/05: Dr. Wolfe and service center specialist met with Stella, pt's sister Guillermina and his mother Cyndi in a room adjacent to pt's room (per 's request). wanted to know why surgeon had visited her , and whether he would get a gall bladder surgery. She also wanted to know results of a brain test she said was scheduled from 2-4pm 09/04. Dr. Wolfe explained that Mr. Ann has gallbladder inflammation, but it is not clear he needs surgery, that the surgeon was asked to assess him and determine best path. Surgery note not yet in EMR. Dr. Wolfe not aware of any brain testing scheduled for 09/04 and insists it occurred. asked RN to contact Dr. Wilson to see if she could clarify this for , as perhaps a test was ordered and done whose results are not on EMR yet. I reminded family that we want to meet with them and neurologist Dr. Mcmahan at noon on ThuSeptember 08. I asked them how many other family members might be at this meeting, but they don't know yet. Sister will tell RN later who will let our office know. 09/04: Drs. Wolfe and Gisel met with and service center specialist in a.m. to re- introduce the PC team and examine her . After exam, we offered sympathetic listening and support. We asked to meet with her and pt's mother at 1pm today. She consented. We met again, outside pt's room in a separate consult room at her request. She is worried that her can understand our conversation and would be discouraged by any bad news. Present were: Drs. Wolfe, Gisel, Steve, service center specialist, Genet George (), and Stella, pt's sister Guillermina and his mother Cyndi. Dr. Wilson gave a brief medical update, acknowledging to the family that pt has shown small signs of improvement, but she is very cautious about what this means for him. Dr. Wolfe gave news from Dr. Haynes that pt's kidneys are improving enough that he will likely not need any more dialysis. . 1. We gently explained to family that Santiago's brain injury is going to be a long, slow process of waiting and helping him before we know what he will be able to do for himself. 2. Dr. Wolfe told them that he may not be able to get out of a bed, that he may not be able to eat, bathe, dress on his own, that he may not be able to be aware of when he needs to use the bathroom. Someone will have to take care of him for all these things, and it will probably be a year before the neurology doctors can give a better idea of how much self-care he can recover. 3. His asked about his speaking abilities. He does speak at times, and it seems to be clear speech and meaningful when it occurs. Dr. Wilson says she will ask Dr. Mcmahan about this, as we don't know how much speaking ability or thinking ability he will recover. 4. We invited family to a meeting Thursday with all of us and Dr. Mcmahan, which gives us more time to observe Santiago tomorrow and over the weekend- -as well as giving the family members who work time to try to arrange to get off for this meeting. 5. We offered supportive listening and answered questions. Please see Ms. George's BLANCA note from re: additional information on family responses today. 08/26 Family Conference Team Meeting (FCTM): On Hospital Day 4 Palliative Care had an initial meeting with family to gather background information about the pt and give a medical update compiled by the Attending hospitalist team through a [place] Speaking Rolled Glass Crosscutter. We met with family at length. This included pt mother Cyndi, sister Guillermina, nephew Paresh, cousin Sina and his spouse Jacquelyn and patient's spouse Elise Douglas (service center specialist services), Genet George (BLANCA), Hazel Wolfe, and Jyotsna--all from [facility] Team-- and Dr. Rodriguez ([facility] hospitalist team coordinator). Stella notes that she and pt have three children; Santiago Reneeovani (13), Zofia (8) and Radha (6). Discussed at length pt current condition and answered questions about medical issues. Dr. Hastings explained that neurological workup is ongoing and outcome is not clear. Dr. Wolfe went over treatments being used to care for pt's lungs and kidneys. 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 He is proud of his capabilities and has learned his skills on the job. Family is Mosque and is part of the cheondoism at [facility] in [place]. Pt enjoys his children and is noted to be a good father. He is described as someone that others esteem and look up to, someone others love, he thinks about the future of his children and plans for them and is a hard worker. Pt has long struggled with depression. He has felt sad that he was raised by his grandmother and for reasons that are unclear, not by his parents. He longed to have a family of his own so that he could be a positive influence and offer parental love and support for his children that he feels he didn't receive. He has disclosed to his spouse and sister that he had depression and at times wished that he had not been born. Family does not think that current episode was a suicide attempt. Pt comes from a family of heavy drinkers and has used drugs and ETOH at baseline, and more so in recent days prior to this hospitalization. Sister feels that pt was not setting a good example for his children with his use of drugs and ETOH. Spouse disclosed pt feelings of depression and sadness and this was very difficult for her to discuss this in front of pt's family. Pt sister expressed support for her to disclose, indicating that this needs to be talked about in order for pt to get the help that he needs. Patient's mother Cyndi, became upset and had to leave the room early and it appeared that she was not aware of some of the family issues brought forward by the and sister today. Family assured by team and service center specialist that this information about family issues , depression, drinking is confidential and medical team only uses information to help monitor pt's health. For example, as a result of this information, the team may be watching for signs of withdrawal from alcohol or considering start of antidepressant when Santiago is able to take po or have a feeding tube to deliver medication. Problems: Resuscitation Status Resuscitation Status: CPR: Attempt Resuscitation ( is ADM) POLST Updates/Changes Previous POLST?: No Total time 35 + 70= 105 minutes; >50% face to face with patient and/or family, providing counselling regarding plans and recommendations, and in care coordination with his/her medical teams. Palliative Brief Note Date of Service Sep 08, 2016 . Patient Identification Santiago Ann is a 41 year old man who presented to the ED via EMS after being found unconscious at 0430H with vomit on himself by his who last saw him well at 1900H the previous night. EMS was called and CPR instructions were given over the phone to the as the patient had abnormal breathing. She gave him CPR until medics arrived. The medics gave the patient 2 mg of Narcan IV which caused his arms to move but he continued to be unresponsive. The pt's reports no falls or trauma to the pt's head. She also states that the pt's brother has possibly had seizures in the past.She mentioned that Mr. Ann drank a bottle of tequila the night prior to admission and that he frequently drinks alcohol. He has had no prior episodes like this. In the ED, vomit was suctioned out of the throat, and he was intubated. CT showed no acute disease and chest x-ray was unremarkable .He was found to be hyperkalemic and acidotic on ABG. Urine Tox in the emergency department showed evidence of cocaine. Hospital Course: He was admitted on 08/23 from ED to the CCU for further management. He developed acute tubular necrosis secondary to rhabdomyolysis and is being followed by Nephrology and received his first dialysis treatment 08/25 for rising creatinine related to elevated CKs. Dr. Lopez has been treating him for possible aspiration pneumonia. The patient has continued to be unresponsive. An EEG done yesterday while the patient was on propofol showed slowing at approximately 6 hertz but no epileptiform abnormalities and no evidence of subclinical seizures to explain his coma state. Head CT was normal, but 2nd head CT completed on August 25 showed evidence of what appeared to be basal ganglial or globus pallidus hyperdensities. There were no other signs to suggest edema. A neurology consultation was requested when the patient failed to improve and continued to show suggestion of brainstem dysfunction with doll's eyes and inability to breathe on his own off the respirator. He has, however, remained on propofol which has been tapered but not completely due to the evidence of bronchospasm at times according to nursing staff. Significant for his neurological examination, the propofol has been stopped. Off propofol there was some voluntary movement of his eyes and facial response to familiar voices. On 08/26, neurology automotive consultant counseled family that he likely has had some anoxic injury but it is yet unclear how much, that we will have to monitor this over time. He got his #3 dialysis treatment; he is still anuric and his creatinine remains 6.9, total CK 12,000, down from 31,000 on admission.Gradually , he began producing urine again and was extubated several days ago. His last dialysis was on 08/30. His dialysis catheter was removed after dialysis that day and cultured to look for infection. On 09/04, Hospital Day 13, Dr. Haynes has told Dr. Wilson ([facility] Hospitalist ) and team that she thinks pt will not need to receive more dialysis as his kidney function has been slowly improving. However, neurologist Dr. Mcmahan feels the patient's anoxic brain injury will continue to be very disabling, with uncertainty regarding how much function can be recovered. On 09/05, Hospital Day 14, pt being assessed by surgery re: possible pancreatitis (per imaging and labs), and surgical/nonsurgical options. On 09/08, Hospital Day 17, review of MAR shows PT was able to have pt sit on side of bed 8 minutes on 09/07 with 2 person assist. Family and RN report a few words spoken by pt. Subjective: Pt unable to participate in interview or family discussions due to anoxic brain injury. Dr. Wolfe examined pt at bedside in a.m. Nephew at bedside. Nephew states he has been here since about 7a.m. and pt has not spoken to him. He reports was able to get pt to speak over the weekend. Exam: In general, he is a well nourished man, lying still in bed, arms slightly bent at his sides HEENT: normocephalic, NGT in left nostril with tube feeds running. Pupils pinpoint, sclera clear. no nystagmus or doll's eyes seen today (+ evasive eye movements or nystagmus observed on my 09/05 exam) Lungs: clear Heart: S1,S2, rrr Abdomen: soft,nondistended, nontender, +bowel sounds in all 4 quadrants. Extremities: no edema. legs, arms are motionless, Neuro: He does not respond to any verbal commands. This provider unable to awaken/arouse him with deep sternal rub, although his brow furrowed, he made no hand/arm motions to try to stop the rub. Skin: damp to touch Marly Wolfe MD Sep 08, 2016 15:08
--- NOTE | 2016-09-08 15:53 | NUR ---
NUTRITION FOLLOW UP: ASSESS: 41 YO male admitted to CCU after pt found unresponsive. Pt with aspiration pneumonia and rhabdomyolysis and likely anoxic brain injury. Pt was extubated 08/28. He continues to have acute encephalopathy and remain NPO. TF were discontinued over the weekend per MD due to acute pancreatitis. MD consult today to try TF formula with decreased fat content vs TPN. TPN would not be recommended at this time due to pt with functioning GI tract so will change TF to Jevity 1.5. However, pt is recovering from acute kidney injury with elevated phos and recent elevated K+ requiring Kayexalate and jevity 1.5 will provide more phos and K+ than Nepro so labs should be monitor closely. Nephrology and palliative care continue to follow. PMHx: ETOH abuse. DIET: NPO. NUTRITION SUPPORT: Currently off nutrition support at this. Jevity 1.5 will be initiated today. LABS: Reviewed. Na 153, BUN 76, Cr 2.96, Glu 112, Phos 5.1, ALT 99, Alb 3.0, lipase 499, Amylas 333. MEDICATIONS: Reviewed. GI: FMS in place: 400 mL output (09/08) SKIN: Stag 2 PU on sacrum and thoracic spine, wound improving per wound care note. ANTHROPOMETRICS: Current Wt: 96.9 kg. Admit wt: 95.1 kg. IBW: 72.7 kg ESTIMATED NEEDS (Renal, wounds, BMI) Calories: 6339-3916 kcal/day (22-25 kcal/kg BW) Protein: 85-110 g protein (1.2-1.5 g/kg BW IBW) Fluid: Approx. ~2600 mL (25mL/kg BW) or per nephrology recommendations NUTRITION DIAGNOSIS: 1) Inadequate oral intake related to inability to consume sufficient energy due to cognition, as evidenced by NPO status - PERSISTS. 2) Increased nutrient needs related to increased needs for disease state as evidenced by JUWAN and current skin issues - PERSISTS. INTERVENTION: 1) Recommend trailing Jevity 1.5 starting at 20 mL/hr and advancing by 10 ml every 6 hours as tolerated to goal rate of 70 mL/hr. TF at goal rate will provide 2415 kcals, 103 g protein, 3.462 g K+, 1.932 g Phos, 2.254 g Na and 1224 ML free H20 per day. Currently fluids are per nephrology and pt is receiving IV fluids at 125 ml/hr. MONITOR/EVALUATE: Enteral feeding, labs, weights, GI/nutrition status. Follow per high nutrition risk guidelines.
--- NOTE | 2016-09-08 17:56 | DRSVH ---
PROCEDURE: MR ABDOMEN MRCP INDICATIONS: Pancreatitis TECHNIQUE: Coronal HASTE through the abdomen, axial 2-D FLASH in- and [id number], and breath-hold T2 FSE with fat saturation through the biliary system and pancreas. Oblique coronal and axial thin-slice HASTE, radial thick-slab HASTE centered on the extrahepatic bile ducts. Intravenous secretin: Not requested. COMPARISON: [facility], CT, CT ABD PELVIS WO CON, 09/04/2016, 18:54[facility], 09/07/2016, 18:41. FINDINGS: Image quality: There is extensive motion artifact markedly limiting evaluation. Pancreas and biliary system: There are 2 large gallstones within the gallbladder measuring up to 2.1 cm. No gallbladder wall thickening or pericholecystic fluid. No intra-or extrahepatic biliary duct al dilatation. No definite filling defects within the common bile duct with evaluation limited due t o motion artifact. The pancreatic duct is normal in caliber. No definite peripancreatic edema or fl uid collections. Other solid organs: Liver and spleen are normal in size. No adrenal nodules. Kidneys demonstrate n o hydronephrosis. There are small bilateral renal cysts. Nodes and vessels: No retroperitoneal or mesenteric adenopathy by size criteria. Aorta and inferior vena cava are normal in size. Bowel and peritoneum: Visualized bowel loops are normal in caliber. No definite free fluid. Lung bases: There is a small left pleural effusion partially visualized. Heart size is normal. Bones and soft tissues: No ventral hernias. Bone marrow is of normal overall signal. IMPRESSION: 1. Markedly limited study due to motion artifact. 2. Cholelithiasis without evidence of cholecystitis. 3. No biliary ductal dilatation or definite choledocholithiasis. 4. No peripancreatic edema to suggest pancreatitis an MRI. No discrete pseudocyst identified. Dictated by: Bruce Valadez M.D. on 09/08/2016 at 17:47 Approved by: Bruce Valadez M.D. on 09/08/2016 at 17:53
--- NOTE | 2016-09-08 19:12 | NUR ---
Mentation/Mobility/pain Pt had periods of alertness at various times during day. At these times pt would smile at comments made, Said "ok" in hungarian when spoke to him. No spontaneous limb movements seen or reported to this RN. Pt required total assist for mobility. Turned q2hrs No c/o or visual signs of pain. Pt went for MRCP at 1640 and returned at 1745. /family asking about shaving patient, will speak to more about this in am.
[2016-09-08] MEDS: Ertapenem Inj 500 MG in 0.9% Sodium Chloride 50 ML IV SCH (20:25)
--- NOTE | 2016-09-08 20:42 | PCM.PNMED ---
Subjective Date of Service Sep 08, 2016 Subjective Patient is seen and examined. Today he is deeply asleep, very minimally arousable. Abdomen looks nondistended, nonacute. Chest sounds improved, palliative care had a family meeting again today with the neurology's help. Exam Vital Signs Vital Sign - Last Date Time Temp Pulse Resp B/P Pulse Ox O2 Delivery O2 Flow Rate FiO2 09/08/16 16:00 36.9 73 18 131/68 Room Air 09/08/16 12:45 97 09/07/16 12:30 2.00 30 Intake and Output 09/07/16 09/07/16 09/08/16 Cumulative From/Thru 15:00 23:00 07:00 08/23/16 05:20 - 09/08/16 05:58 Intake Total 1371 ml 1542 ml 76558 ml Output Total 2650 ml 2400 ml 40078 ml Balance -1279 ml -858 ml 3553 ml Intake Oral 10 ml IV Total 1071 ml 1542 ml 45721 ml Tube Feeding 100 ml 10996 ml Tube Irrigant 200 ml 5247 ml Output Urine Total 2500 ml 2000 ml 08064 ml Stool Total 150 ml 400 ml 8290 ml Gastric Drainage Total 1070 ml Ultrafiltrate 4700 ml # Bowel Movements 11 Exam General: Lying in hospital bed, very somnolent today HEENT: Normocephalic, atraumatic. Dry oral mucosa/ chapped lips Neck: No jugular venous distension. Cardiovascular: Regular rate and rhythm with no murmurs, rubs, or gallops appreciated Pulmonary: Much improved lung sounds Abdomen: Bowel tones present. Soft, nontender, nondistended. No rigidity and no guarding. Extremities: No clubbing, cyanosis, edema Skin: Warm to palpation, no rash Vascular palpable pedal pulses IVs and Medications IV Fluids Dextrose 5% 0.225% NaCl at 1 25 mL/h Medications Reviewed: Medications were reviewed in detail Lab and Diagnostics Result Diagram: 09/07/16 0520 09/08/16 0445 Microbiology Blood cultures pending MRSA swab pending X-Rays, CTs and MRIs CT BRAIN WITHOUT CONTRAST IMPRESSION: No acute disease. Dictated by: Hemant Gallegos M.D. on 08/23/2016 CT BRAIN WITHOUT CONTRAST IMPRESSION: 1. Diffuse bilateral hypodensity of the globus pallidus. This is a new finding when compared with the study dated 08/23/16. Differential considerations include anoxic injury, carbon monoxide neurotoxicity, excessive alcohol ingestion, and methanol or ethylene glycol ingestion. Dictated by: Dinora Kang M.D. 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 Dictated by: Jacob Mosqueda M.D. on 08/28/2016 CT CHEST WITHOUT CONTRAST IMPRESSION: Small basal left pleural effusion is unchanged, with associated left lower lobe compressive atelectasis. Superimposed pneumonia therefore cannot be excluded. Dictated by: Binh Ochoa M.D. on 09/07/2016 at 13:47 US RENAL SONOGRAM IMPRESSION: No hydronephrosis. Right renal cyst. Dictated by: Shobha Vale M.D. on 08/24/2016 US ABDOMEN IMPRESSION: 1. Cholelithiasis. 2. Mild gallbladder wall thickening. Acute cholecystitis cannot be excluded. 3. Echogenic liver. Finding typically represents fatty infiltration; however, finding is nonspecific and correlation with clinical and laboratory findings is recommended to exclude other etiologies including hepatic cirrhosis. 4. Slightly echogenic right kidney suspicious for developing medical renal disease. Please correlate with clinical and laboratory data. Dictated by: Swathi Jimenes MD, PhD on 08/29/2016 US ABDOMEN, LIMITED IMPRESSION: Cholelithiasis, without justin gallbladder wall thickening to suggest acute cholecystitis at this time. Dictated by: Binh Ochoa M.D. on 09/07/2016 X-RAY CHEST ONE VIEW, PORTABLE IMPRESSION: No acute disease is seen a semiupright portable chest. Tubes are considered appropriate radiographically. Dictated by: Hemant Gallegos M.D. on 08/23/2016 X-RAY CHEST ONE VIEW, PORTABLE IMPRESSION: Support lines as above. Otherwise, no acute pulmonary process. Dictated by: Shobha Vale M.D. on 08/24/2016 X-RAY CHEST ONE VIEW, PORTABLE IMPRESSION: No acute cardiopulmonary disease process. Dictated by: Swathi Jimenes MD, PhD on 08/25/2016 X-RAY CHEST ONE VIEW, PORTABLE IMPRESSION: 1. Left basilar atelectasis. Otherwise lungs are clear. 2. ET and enteric tubes. Dictated by: Jacob Mosqueda M.D. on 08/27/2016 at 9:53 X-RAY CHEST ONE VIEW, PORTABLE IMPRESSION: Stable left basilar atelectasis and support lines. Dictated by: Jacob Mosqueda M.D. on 08/28/2016 at 7:54 Additional Diagnostics ABG DateTimeAnalyzed 10:20:00 -_ pH ____7.354 - 7.350 7.450 pCO2 ___31.5__ -mmHg 35.0 45.0 pO2 160 -mmHg 69.0 116 HCO3- ___17.1__ -mmol/L 22.0 26.0 FIO2 ___45.0__ -% PRVC 20 - PEEP ____8.0__ -cmH2O Assessment & Plan Santiago Ann is a 41 year old male with no known past medical history who came in unresponsive after being found with vomit around him, sedated and intubated for acute hypoxemic respiratory failure secondary to aspiration for 5 days and extubated on hospital day 6 following successful spontaneous breathing trial. He remains awake and severally limited in ability to move proximal/axial muscles. Anoxic Brain Injury, present on admission, active Secondary to aspiration and intoxication. Patient has had large volume of vomit suctioned out in the ED. --Initial EEG shows evidence of slowing but no other abnormalities to suggest that the patient is having clinical seizures causing his symptoms. There is significant metabolic dysfunction. This will require a lot of work for rehab. It 's uncertain how much recovery can be had. - Intubated on 08/23/16, Extubated on 08/28/16 - Zosyn was given for 7 days earlier in the hospital course but was stopped per ID recommendation. - ICU, Infectious disease, Palliative care, neurology and nephrology consults --Patient was started on tube feeds that were held on 09/06 am due to concern for acute pancreatitis - Physical Therapy, Occupational therapy and Speech eval when appropriate. --Swallow therapy feels pt making minor improvements - Palliative care is involved to help this unfortunate pt and his family, we appreciate their recommendations - Neurology recommends repeat EEG to for comparison. I called Dr. guillaume on who has read the follow-up EEG, he feels that there has been an improvement even though he is remarkable for encephalopathy due to anoxic brain injury versus infectious etiologies. He feels that there might be some improvement in patient's status though he will never regain his previous functional status. Patient's seems to be thinking that patient will get back to his normal life, informed Dr. guillaume of this. Dr. 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 -- 09/07 Nephrology ordered D5 quarter normal saline and increases to 125 per hour. 500 mg of Diuril IV and 21 g of DDAVP IV -- 09/08 "We will continue to see Diuril 500 mg IV once a day along with DDAVP 8 g every 12 hours IV. Also need to continue his hydration with D5 quarter normal saline until he has no improvement in his serum sodium level." Acute hypernatremia, worsened -- To be secondary to nephrogenic versus central diabetes insipidus -- Nephrology management as above -- Continue to follow nephrology recommendations Acute hypocalcemia resolved -- Continue to monitor Fevers, ongoing, thought to be central -- Fevers could be because of central etiology per neurology -- Blood cultures are so far negative -- LFTs and lipase are slowly improving. UA is negative -- Chest x-ray still looks to have aspiration pneumonia, patient is currently on ertapenem. Chest CT ordered on 09/07 that showed no changes from the chest x- ray. -- Consider taking the PICC line out and culturing if blood cx are ever positive -- ID is back in the picture is DrTyler Shirley has returned from his break, he is considering stopping the antibiotics in the light of continued fever since admission if MRCP is negative for acute pancreatitis Acute Cholecystitis, resolved -- Patient is worsened white count 20.2 on 09/04, tender down to 18.7 on 09/05 continued fevers, due to acute cholecystitis based on HIDA scan and abdominal CT -- Cont ertapenem -- Under HIDA scan (" Nonvisualization of the gallbladder suggesting acute cholecystitis"), abdominal CT ("1. Small left pleural effusion with left lower lobe consolidation likely representing pneumonia. Cholelithiasis with probable cholecystitis due to the nonvisualization of the gallbladder on recent HIDA scan. Nonspecific presacral soft tissue thickening. ) -- LFTs remained relatively stable negative for hyperbilirubinemia -- Gen. surgery was consulted, Dr. Dash 's in the patient: " I suspect he has hadthis inflammatory process for the past two days. It does not seem well controlled with antibiotics. Given his down-trending lipase, I would beinclined to recommend a laparoscopic cholecystectomy except for the severity ofhis anoxic brain injury and his pulmonary status. I have discussed the optionswith the family and recommended a cholecystostomy tube. I have offered them a2nd opinion as there are some surgeons who might think that a laparoscopiccholecystectomy was the appropriate way to go, but I think a cholecystostomytube with continued intravenous antibiotics is in the patient's best interest.I also think we should hold his tube feedings to make him n.p.o. until hislipase starts coming down. General Surgery will continue to follow the patientand hopefully if he makes a good recovery he would be a candidate for anelective laparoscopic cholecystectomy 3-[address] prior to removal of his cholecystostomy tube." -- 09/06 Dr. garrett spent considerable amount of time investigating the cause cystostomy with Dr. Kang from radiology. According to him, the gallbladder is quite small, and the risk of perforating is high with cholecystostomy. If the patient is clinically improving and the pancreatitis is improving may not have to do this procedure urgently, he also feels that acute cholecystitis unlikely with a small gallbladder, as the stone has left and may be causing pancreatitis. Will discuss MRCP. -- TPN is discontinued on 09/06 AM as this is thought to be worsening his cholecystitis and pancreatitis, discussed with dietary 09/08 how to restart his nutrition, then far made that we will not have too many options with tube feeds unless we get him off of the renal diet. She can be off renal diet they can see how they can control the tube feeds as low-fat. Otherwise we will have to switch him to TPN. Follow up with Joan in dietary. Acute galstone Pancreatitis, resolved -- 09/05 lipase showed lipase of 763 to 597--> 607 -- Continue IV fluids -- Surgery is consulted we appreciated their recommendations as well, they are discussing case with IR: Surgery and INR field the gallbladder is very small and hence has not yet discussed perforating it is an ostomy tube option. As the rest of his labs that improving the objective weight monitor him at the follow-up right upper quadrant scan on 09/07, and possible CT abdomen on 09/07 minute visit is further concern -- Negative for quadrant scan is ordered:"Cholelithiasis, without justin gallbladder wall thickening to suggest acute cholecystitis at this time. -- 09/08 MRCP is negative for coronary cystitis and pancreatitis -- Need to revisit nutrition on 09/09 Metabolic Acidosis, present on admission, active Likely secondary to lactic acidosis and uremia - Monitor CMP: Rhabdomyolysis, present on admission, [place] [address]. Likely secondary to being in one position for 9 hours. Patient has large erythematous regions at pressure points of sacrum and upper thorax with open wound at sacrum. - Wound care consult -- Follow-up total CK is ordered for 09/08= 177 wnl Acute Kidney Injury, present on admission, improving Cr on admission at 3.52 and increasing after admission. Unknown history of kidney injury. - Nephrology (Drs. Haynes/Chacorta) currently following case. Hemodialysis done daily since 08/25/16 till 1-2 days ago. No longer an hemodialysis currently is catheter is removed - Nephrology has a good hydration protocol with IV fluids --Nephrology culture the dialysis catheter tip. This showed no growth to date --Patient is not currently receiving dialysis, patient is improving, nephrology does not feel he needed any further dialysis Hyperkalemia, present on admission, reccurred resolved - Kayexalate via feeding tube is given per nephro on 09/07 -- Continue to monitor Stage II ulcers in the buttock areas -- Patient has a left rather large areas of stage II ulcers on either side of his gluteal cleft, make sure to check them from time to time with the help of wound care. They did not look infected as of 09/06 Alcohol dependence -Patient currently sedated no need to institute CIWA protocol at this time Drug dependence -Patient is a known user of cocaine and ice -Per family, last known use is around 5 months ago. Acetaminophen for mild pain when necessary. Bowel regimen Senna and MiraLAX scheduled and PRN. Zofran when necessary for nausea and vomiting. SubQ heparin for now. SCDs in place. Social: Patient is an undocumented immigrant. However he may be eligible for Emergent Alien Inpatient resources. He may not have resources for outpatient care. Family does not seem to be understanding of his prognosis, is expecting that he would recover completely. We will continue discussions. Palliative care. On 09/07, physical therapy has seen the patient still recommends halfway facility via BLS transfer. Please have high school social studies teacher give way [employer] hospice care number. Patient's could potentially call this number for any financial help she could receive possibly even if she is not interested in hospice services. Disposition: Likely here for > 2 midnights. Dependent upon anoxic brain injury. Patient is improving at there be other problem except the fevers, may have to DC home with fevers. GI Prophylaxis: Not indicated (Patient extubated) VTE Prophylaxis: Sub-Q Heparin (Unfractionated), SCDs VTE Mechanical Devices: Intermittant Pneumatic CD Resuscitation Status: CPR: Attempt Resuscitation ( is ADM) Time spent 25 minutes Minerva Wilson DO Sep 08, 2016 20:42
[2016-09-08] MEDS: Micafungin Inj 100 MG in 0.9% Sodium Chloride 100 ML IV SCH (21:17)
[2016-09-09] VITALS (9 sets, daily range): BP systolic 99–149; BP diastolic 58–95; PULSE 69–90; RESP 16–24; O2SAT 96–97
[2016-09-09] MEDS: DESMOPRESSIN IV SCH (00:08)
[2016-09-09] MEDS: SODIUM CHLORIDE 0.9% IV SCH (00:08)
[2016-09-09] MEDS: Heparin 5,000 Unit/mL Inj SUBQ SCH ×4 (00:33→20:33)
--- NOTE | 2016-09-09 05:33 | NUR ---
Condition Pt. condition was unchanged during this shift. VSS and he started Jevity 1.5 Juan José. He a Q2 turn. Family is pleasant and very helpful with care especially his . Family talked with doctor yesterday and they especially his believe he will get better but the doctor thinks otherwise.
[2016-09-09 06:05] LABS: BASOPHILS % (AUTO) 0.7 % (0-3); EOSINOPHILS % (AUTO) 3.4 % (0-5); MONOCYTES % (AUTO) 7.7 % (4-12); Mean Corpuscular Hemoglobin 28.6 pg (27.0-35.0); Mean Corpuscular Volume 93.7 fL (81-100); NEUTROPHILS % (AUTO) 70.7 % (40-74); Platelet Count 201 bil/L (150-400)
--- NOTE | 2016-09-09 06:31 | NUR ---
Dressing Change Pt Dressing changed put order
--- NOTE | 2016-09-09 09:21 | PCM.PNSURG ---
Subjective Date of Service: Sep 09, 2016 Date of Service: Sep 09, 2016 Visit Information: Reason for Visit Anoxic/Brain Injury-resolving chronic cholecystitis and acute pancreatitis Surgery/Surgery Date Post-Op Day Date of Admission: Aug 23, 2016 at 07:01 Hospital Day # 17 Subjective: Patient is again non-responsive in bed today except for a moment when he opened his eyes and said hello to his . A semiconductor processing group leader was available for discussion with the about her 's care. ERCP completed yesterday. Gastroenterology report was unavailable. Now on tube feedings. Gastrointestinal: Other (NG tube feeding) Pain Management: Other (PICC) Neurological: Other (Variable arousal) Objective Vital Sign- Last 8 Hours Date Time Temp Pulse Resp B/P Pulse Ox O2 Delivery O2 Flow Rate FiO2 09/09/16 05:21 Supplement Oxygen 09/09/16 03:03 69 99/58 Intake and Output- Last 8 Hour 09/09/16 Cumulative From/Thru 07:00 08/23/16 05:20 - 09/09/16 06:32 Intake Total 1813 ml 22599 ml Output Total 2950 ml 98749 ml Balance -1137 ml 496 ml Intake Oral 0 ml 10 ml IV Total 1523 ml 45242 ml Tube Feeding 225 ml 42100 ml Tube Irrigant 65 ml 5412 ml Output Urine Total 2950 ml 85729 ml Stool Total 8490 ml Gastric Drainage Total 1070 ml Ultrafiltrate 4700 ml # Bowel Movements 11 General: Other (Not alert) Lungs: Clear to Auscultation Heart: Exam Unremarkable Abdomen: Benign, Soft, Non-tender Extremities: Thigh&Calf Soft/Nontender Neuro: Other (nonresponsive to verbal stimulation) Result Diagram: 09/09/16 0528 09/08/16 0445 Diagnostics: [place] [address] PATIENT NAME: SANDY SOSA : 1975 GENDER: Ashok GUAJARDO EXAM DATE: 09/08/2016 16:42 ORDERED FROM: [facility] ORDERING PHYSICIAN: BRAD CASTELAN CC: NITA BRAVO [facility] CONTRAST: READING STATION ID: [id number] mGy: PROCEDURE: MR ABDOMEN MRCP INDICATIONS: Pancreatitis TECHNIQUE: Coronal HASTE through the abdomen, axial 2-D FLASH in- and [id number], and breath-hold T2 FSE with fat saturation through the biliary system and pancreas. Oblique coronal and axial thin-slice HASTE, radial thick-slab HASTE centered on the extrahepatic bile ducts. Intravenous secretin: Not requested. COMPARISON: [facility], CT, CT ABD PELVIS WO CON, 09/04/2016, 18:54. [facility], US, ABDOMEN LTD, 09/07/2016, 18:41. FINDINGS: Image quality: There is extensive motion artifact markedly limiting evaluation. Pancreas and biliary system: There are 2 large gallstones within the gallbladder measuring up to 2.1 cm. No gallbladder wall thickening or pericholecystic fluid. No intra- or extrahepatic biliary ductal dilatation. No definite filling defects within the common bile duct with evaluation limited due to motion artifact. The pancreatic duct is normal in caliber. No definite peripancreatic edema or fluid collections. Other solid organs: Liver and spleen are normal in size. No adrenal nodules. Kidneys demonstrate no hydronephrosis. There are small bilateral renal cysts. Nodes and vessels: No retroperitoneal or mesenteric adenopathy by size criteria. Aorta and inferior vena cava are normal in size. Bowel and peritoneum: Visualized bowel loops are normal in caliber. No definite free fluid. Continued Report - Page 2 of 2 PATIENT NAME: SANDY SOSA : 1975 GENDER: Ashok AnyPresenceTIFFANIE EXAM DATE: 09/08/2016 16:42 ORDERED FROM: [facility] ORDERING PHYSICIAN: BRAD CASTELAN CC: [facility]ITA [facility] CONTRAST: READING STATION ID: [id number] mGy: Lung bases: There is a small left pleural effusion partially visualized. Heart size is normal. Bones and soft tissues: No ventral hernias. Bone marrow is of normal overall signal. IMPRESSION: 1. Markedly limited study due to motion artifact. 2. Cholelithiasis without evidence of cholecystitis. 3. No biliary ductal dilatation or definite choledocholithiasis. 4. No peripancreatic edema to suggest pancreatitis an MRI. No discrete pseudocyst identified. Dictated by: Bruce Valadez M.D. on 09/08/2016 at 17:47 Approved by: Bruce Valadez M.D. on 09/08/2016 at 17:53 Assessment & Plan Impression Primary Diagnosis: 1. Status post anoxic brain injury 2. Acute Pancreatitis - MR negative 3. Chronic cholecystitis - Resolved w/ cholelithiasis w/o choledocholithiasis 4. Acute kidney injury Other Medical Problems: Alcohol abuse Problems: Plan 1. General surgery will continue to follow for now. 2. Appreciate GI Input. 3. AM Labs pending. VTE Prophylaxis: Sub-Q Heparin (Unfractionated), SCDs Resuscitation Status: CPR: Attempt Resuscitation ( is ADM) Jack Patel PA-C Sep 09, 2016 09:21
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
[2016-09-09] MEDS: Dextrose 5% 0.225% NaCl 1,000 ML IV SCH (10:47)
[2016-09-09] MEDS: Chlorothiazide Inj 500 MG in Dextrose 5% 50 ML IV SCH (10:47)
[2016-09-09] MEDS: Thiamine Inj 200 MG in Dextrose 5% 50 ML IV SCH (10:53)
[2016-09-09] MEDS: AMANTADINE 10 MG/ML TUBE SCH (11:42)
[2016-09-09] MEDS: 0.9% Sodium Chloride 1,000 ML IV SCH ×2 (11:45→16:16)
[2016-09-09] MEDS ORDERED: 0.9% Sodium Chloride 500 ML IV ONE (11:45)
--- NOTE | 2016-09-09 11:51 | PCM.PNNEPH ---
DORA ESPOSITO DO 09/09/16 1151: Subjective Date of Service Sep 09, 2016 Subjective Overnight: Vital signs remained stable, tube feedings were initiated. Yesterday: Palliative care and neurology met with patient's family and gave prognosis that Mr. Ann may gain enough awareness to participate in a limited way, speaking a few words but he will most likely never be able to move his arms or legs at this point is under unclear how much cognitive ability he may regain. He will need 24-hour care indefinitely. Unclear if family registered this information or except that this information. Gallbladder appears to be improving however his pancreas remains inflamed. Today: Patient sitting up in bed undergoing physical therapy evaluation. Awake and alert and able to track movement though does not respond locally to questions. Exam Vital Signs Vital Sign - Last Date Time Temp Pulse Resp B/P Pulse Ox O2 Delivery O2 Flow Rate FiO2 09/09/16 10:17 84 09/09/16 10:06 37.6 18 135/76 Room Air 09/09/16 00:30 97 09/07/16 12:30 2.00 30 Intake and Output 09/08/16 09/08/16 09/09/16 Cumulative From/Thru 15:00 23:00 07:00 08/23/16 05:20 - 09/09/16 06:32 Intake Total 280 ml 1813 ml 09719 ml Output Total 2200 ml 2950 ml 88592 ml Balance -1920 ml -1137 ml 496 ml Intake Oral 0 ml 10 ml IV Total 180 ml 1523 ml 79794 ml Tube Feeding 225 ml 39241 ml Tube Irrigant 100 ml 65 ml 5412 ml Output Urine Total 2000 ml 2950 ml 30472 ml Stool Total 200 ml 8490 ml Gastric Drainage Total 1070 ml Ultrafiltrate 4700 ml # Bowel Movements 11 Exam General: Sitting up in hospital bed, spontaneous opening of eyes. Nonverbally responsive though able to track movement with eyes HEENT: Normocephalic, atraumatic. Neck: No jugular venous distension. Cardiovascular: Regular rate and rhythm with no murmurs, rubs, or gallops appreciated Pulmonary: Decreased lung sounds bilaterally. Normal respiratory effort with no use of accessory muscles. Abdomen: Bowel tones present. Soft, nontender, nondistended. No rigidity and no guarding. Extremities: No clubbing, cyanosis, edema Skin: Warm to palpation, no rash Lab and Diagnostics Result Diagram: 09/09/16 0528 09/08/16 0445 Microbiology Blood cultures pending MRSA swab pending X-Rays, CTs and MRIs CT BRAIN WITHOUT CONTRAST IMPRESSION: No acute disease. Dictated by: Hemant Gallegos M.D. on 08/23/2016 CT BRAIN WITHOUT CONTRAST IMPRESSION: 1. Diffuse bilateral hypodensity of the globus pallidus. This is a new finding when compared with the study dated 08/23/16. Differential considerations include anoxic injury, carbon monoxide neurotoxicity, excessive alcohol ingestion, and methanol or ethylene glycol ingestion. Dictated by: Dinora Kang M.D. 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 Dictated by: Jacob Mosqueda M.D. on 08/28/2016 CT CHEST WITHOUT CONTRAST IMPRESSION: Small basal left pleural effusion is unchanged, with associated left lower lobe compressive atelectasis. Superimposed pneumonia therefore cannot be excluded. Dictated by: Binh Ochoa M.D. on 09/07/2016 at 13:47 US RENAL SONOGRAM IMPRESSION: No hydronephrosis. Right renal cyst. Dictated by: Shobha Vale M.D. on 08/24/2016 US ABDOMEN, LIMITED IMPRESSION: Cholelithiasis, without justin gallbladder wall thickening to suggest acute cholecystitis at this time. Dictated by: Binh Ochoa M.D. on 09/07/2016 MR ABDOMEN MRCP IMPRESSION: 1. Markedly limited study due to motion artifact. 2. Cholelithiasis without evidence of cholecystitis. 3. No biliary ductal dilatation or definite choledocholithiasis. 4. No peripancreatic edema to suggest pancreatitis an MRI. No discrete pseudocyst identified. Dictated by: Bruce Valadez M.D. on 09/08/2016 at 17:47 US ABDOMEN IMPRESSION: 1. Cholelithiasis. 2. Mild gallbladder wall thickening. Acute cholecystitis cannot be excluded. 3. Echogenic liver. Finding typically represents fatty infiltration; however, finding is nonspecific and correlation with clinical and laboratory findings is recommended to exclude other etiologies including hepatic cirrhosis. 4. Slightly echogenic right kidney suspicious for developing medical renal disease. Please correlate with clinical and laboratory data. Dictated by: Swathi Jimenes MD, PhD on 08/29/2016 US ABDOMEN, LIMITED IMPRESSION: Cholelithiasis, without justin gallbladder wall thickening to suggest acute cholecystitis at this time. Dictated by: Binh Ochoa M.D. on 09/07/2016 X-RAY CHEST ONE VIEW, PORTABLE IMPRESSION: No acute disease is seen a semiupright portable chest. Tubes are considered appropriate radiographically. Dictated by: Hemant Gallegos M.D. on 08/23/2016 X-RAY CHEST ONE VIEW, PORTABLE IMPRESSION: Support lines as above. Otherwise, no acute pulmonary process. Dictated by: Shobha Vale M.D. on 08/24/2016 X-RAY CHEST ONE VIEW, PORTABLE IMPRESSION: No acute cardiopulmonary disease process. Dictated by: Swathi Jimenes MD, PhD on 08/25/2016 X-RAY CHEST ONE VIEW, PORTABLE IMPRESSION: 1. Left basilar atelectasis. Otherwise lungs are clear. 2. ET and enteric tubes. Dictated by: Jacob Mosqueda M.D. on 08/27/2016 at 9:53 X-RAY CHEST ONE VIEW, PORTABLE IMPRESSION: Stable left basilar atelectasis and support lines. Dictated by: Jacob Mosqueda M.D. on 08/28/2016 at 7:54 Additional Diagnostics ABG DateTimeAnalyzed 10:20:00 -_ pH ____7.354 - 7.350 7.450 pCO2 ___31.5__ -mmHg 35.0 45.0 pO2 160 -mmHg 69.0 116 HCO3- ___17.1__ -mmol/L 22.0 26.0 FIO2 ___45.0__ -% PRVC 20 - PEEP ____8.0__ -cmH2O Plan Impression 1. Acute kidney injury secondary to rhabdomyolysis. Required daily HD x 6, - 08/30, catheter removed 08/30. Urine output now 2 L per day. BUN/ creatinine continued to trend down 2. Hypernatremia, continues to oscillate between hypernatremic and normal serum sodium. Sodium today 153 3. Rhabdomyolysis, improving. 4. Persistent fevers. 5. Acute hypoxic respiratory failure, resolved. 6. Anoxic brain injury. 7. Acute transaminitis. 8. Cholelithiasis suspected acute cholecystitis. 9. Polysubstance abuse. Plan: - 500 bolus normal saline followed by an S 150 mL per hour - Continue with desmopressin 8 g IV daily - Chlorthalidone 500 mg IV daily - Continue to monitor BMP and urinary output - No indication for hemodialysis this time Ace Whatley DO 09/09/16 1402: Exam Lab and Diagnostics Result Diagram: 09/09/16 0528 09/08/16 0445 Plan Plan: Attending vessel specialist: Pt. seen and examined with Dr. Esposito, we have throughlu discussed the case, I agree with the above note and plan. DORA ESPOSITO DO Sep 09, 2016 11:51 Ace Whatley DO Sep 09, 2016 14:02
--- NOTE | 2016-09-09 14:07 | NUR ---
Called and left message for Marissa Bailon at [place], inquiring about [facility] and if this is something that can be done in their facility. Updated [facility]
--- NOTE | 2016-09-09 15:30 | NUR ---
Palliative care note FCTM (late note for 09/08/16) D/A: Family conference today with Dr.s Mcmahan and Yaneth as well as pt spouse, sister cousin-in -law and mother as well as bedside RN and later Dr. Wilson. Dr. Mcmahan examined pt and spent some time explaining to family what he thinks pt course will be with his current TBI. Family recounts that he does wake up and speaks to them. Medical team explains that he will have daily periods of sleeping/"unconsciousness" alternating with the sometimes short bursts of alertness/sentence speaking. It is expected that pt will have difficulties with muscle movement and voluntary movement. Cousin in law is Marina Phillips who is to a cousin of pt. She can be reached at [phone]. She appears to understand situation and is grasping more of the complexity as she learns more about pt needs and lack of insurance. Discuss briefly thought of pt move to [place] but family notes pt would not have access to healthcare in [place] and aside from his mother residing there-there are some uncles and other more distant relatives. This worker is not sure exactly where in [place] that family lives and it sounds as though funds are an issue for those in [place]. Discuss idea of home to spouse. Spouse asks mother/sister to help her care for pt and they both decline as mother states she needs to return to [place] and sister indicates she has others she cares for at this time. It appears that Marina may be aware of rift between these women in pt's life. Pt with current NG-discuss his nutrition and speech therapy. Msg left for [facility] [employer] SERVICE TEAM MEMBER. P: Palliative care to follow. [employer] NANCE, SEA[employer] SERVICE TEAM MEMBER
--- NOTE | 2016-09-09 15:48 | NUR ---
Palliative care note Left phone message for WIRE COMMUNICATIONS ENGINEER working on pt chart to indicate that pt [id number] name and number listed on note for 09/08/16. Suggested she may be a good one to discuss current needs for family in terms of planning for dc. Genet NANCE, CCM
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
--- NOTE | 2016-09-09 18:05 | NUR ---
Shift Assessment Clinical picture for patient remains unchanged. Persistently febrile. Wax/wane with alertness, short answers to family. No spontaneous mvmt. Family supported.
--- NOTE | 2016-09-09 18:36 | PCM.PNMED ---
Subjective Date of Service Sep 09, 2016 Subjective Pt tube feeds are ongoing. Exam Vital Signs Vital Sign - Last Date Time Temp Pulse Resp B/P Pulse Ox O2 Delivery O2 Flow Rate FiO2 09/09/16 18:11 78 09/09/16 16:30 38.1 20 148/95 97 Room Air 09/07/16 12:30 2.00 30 Intake and Output 09/08/16 09/08/16 09/09/16 Cumulative From/Thru 15:00 23:00 07:00 08/23/16 05:20 - 09/09/16 06:32 Intake Total 280 ml 1813 ml 40187 ml Output Total 2200 ml 2950 ml 89861 ml Balance -1920 ml -1137 ml 496 ml Intake Oral 0 ml 10 ml IV Total 180 ml 1523 ml 71985 ml Tube Feeding 225 ml 27601 ml Tube Irrigant 100 ml 65 ml 5412 ml Output Urine Total 2000 ml 2950 ml 77275 ml Stool Total 200 ml 8490 ml Gastric Drainage Total 1070 ml Ultrafiltrate 4700 ml # Bowel Movements 11 Exam General: spontaneous opening of eyes. Nonverbally responsive. though able to track movement with eyes. HEENT: Normocephalic, atraumatic. Neck: No jugular venous distension. Cardiovascular: Regular rate and rhythm with no murmurs, rubs, or gallops appreciated Pulmonary: Decreased lung sounds bilaterally. Normal respiratory effort with no use of accessory muscles. Abdomen: Bowel tones present. Soft, nontender, nondistended. No rigidity and no guarding. Extremities: No clubbing, cyanosis, edema Skin: Warm to palpation, no rash IVs and Medications Medications Reviewed: Medications were reviewed in detail Lab and Diagnostics Result Diagram: 09/09/16 0528 09/09/16 1350 Microbiology Blood cultures pending MRSA swab pending X-Rays, CTs and MRIs CT BRAIN WITHOUT CONTRAST IMPRESSION: No acute disease. Dictated by: Hemant Gallegos M.D. on 08/23/2016 CT BRAIN WITHOUT CONTRAST IMPRESSION: 1. Diffuse bilateral hypodensity of the globus pallidus. This is a new finding when compared with the study dated 08/23/16. Differential considerations include anoxic injury, carbon monoxide neurotoxicity, excessive alcohol ingestion, and methanol or ethylene glycol ingestion. Dictated by: Dinora Kang M.D. 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 Dictated by: Jacob Mosqueda M.D. on 08/28/2016 CT CHEST WITHOUT CONTRAST IMPRESSION: Small basal left pleural effusion is unchanged, with associated left lower lobe compressive atelectasis. Superimposed pneumonia therefore cannot be excluded. Dictated by: Binh Ochoa M.D. on 09/07/2016 at 13:47 US RENAL SONOGRAM IMPRESSION: No hydronephrosis. Right renal cyst. Dictated by: Shobha Vale M.D. on 08/24/2016 US ABDOMEN, LIMITED IMPRESSION: Cholelithiasis, without justin gallbladder wall thickening to suggest acute cholecystitis at this time. Dictated by: Binh Ochoa M.D. on 09/07/2016 MR ABDOMEN MRCP IMPRESSION: 1. Markedly limited study due to motion artifact. 2. Cholelithiasis without evidence of cholecystitis. 3. No biliary ductal dilatation or definite choledocholithiasis. 4. No peripancreatic edema to suggest pancreatitis an MRI. No discrete pseudocyst identified. Dictated by: Bruce Valadez M.D. on 09/08/2016 at 17:47 US ABDOMEN IMPRESSION: 1. Cholelithiasis. 2. Mild gallbladder wall thickening. Acute cholecystitis cannot be excluded. 3. Echogenic liver. Finding typically represents fatty infiltration; however, finding is nonspecific and correlation with clinical and laboratory findings is recommended to exclude other etiologies including hepatic cirrhosis. 4. Slightly echogenic right kidney suspicious for developing medical renal disease. Please correlate with clinical and laboratory data. Dictated by: Swathi Jimenes MD, PhD on 08/29/2016 US ABDOMEN, LIMITED IMPRESSION: Cholelithiasis, without justin gallbladder wall thickening to suggest acute cholecystitis at this time. Dictated by: Binh Ochoa M.D. on 09/07/2016 X-RAY CHEST ONE VIEW, PORTABLE IMPRESSION: No acute disease is seen a semiupright portable chest. Tubes are considered appropriate radiographically. Dictated by: Hemant Gallegos M.D. on 08/23/2016 X-RAY CHEST ONE VIEW, PORTABLE IMPRESSION: Support lines as above. Otherwise, no acute pulmonary process. Dictated by: Shobha Vale M.D. on 08/24/2016 X-RAY CHEST ONE VIEW, PORTABLE IMPRESSION: No acute cardiopulmonary disease process. Dictated by: Swathi Jimenes MD, PhD on 08/25/2016 X-RAY CHEST ONE VIEW, PORTABLE IMPRESSION: 1. Left basilar atelectasis. Otherwise lungs are clear. 2. ET and enteric tubes. Dictated by: Jacob Mosqueda M.D. on 08/27/2016 at 9:53 X-RAY CHEST ONE VIEW, PORTABLE IMPRESSION: Stable left basilar atelectasis and support lines. Dictated by: Jacob Mosqueda M.D. on 08/28/2016 at 7:54 Additional Diagnostics ABG DateTimeAnalyzed 10:20:00 -_ pH ____7.354 - 7.350 7.450 pCO2 ___31.5__ -mmHg 35.0 45.0 pO2 160 -mmHg 69.0 116 HCO3- ___17.1__ -mmol/L 22.0 26.0 FIO2 ___45.0__ -% PRVC 20 - PEEP ____8.0__ -cmH2O Assessment & Plan Santiagorudi Ann is a 41 year old male with no known past medical history who came in unresponsive after being found with vomit around him, sedated and intubated for acute hypoxemic respiratory failure secondary to aspiration for 5 days and extubated on hospital day 6 following successful spontaneous breathing trial. He remains awake and severally limited in ability to move proximal/axial muscles. #Anoxic Brain Injury, present on admission, active Secondary to aspiration and intoxication. Patient has had large volume of vomit suctioned out in the ED. --Initial EEG shows evidence of slowing but no other abnormalities to suggest that the patient is having clinical seizures causing his symptoms. There is significant metabolic dysfunction. - Intubated on 08/23/16, Extubated on 08/28/16. Zosyn was given for 7 days earlier in the hospital course but was stopped per ID recommendation. - ICU, Infectious disease, Palliative care, neurology and nephrology consults -- tube feeds resumed 09/09. FLAG SIGNALMAN/PT/OT as appropriate. - Palliative care is involved to help this unfortunate pt and his family, we appreciate their recommendations. - Neurology - per Dr. Guillaume, follow-up EEG, He feels that there might be some improvement in patient's status though he will never regain his previous functional status. Dr. guillaume met with the family and confirmed that fully recovery is not possible. -- Fevers, polyuria, thought to be due to central etiology #Fevers, ongoing, thought to be central, active. -- Fevers could be because of central etiology per neurology -- Blood cultures are so far negative -- LFTs and lipase are slowly improving. UA is negative -- Chest x-ray still looks to have aspiration pneumonia, patient is currently on ertapenem. Chest CT ordered on 09/07 that showed no changes from the CXR. - MRCP did not show evidence of Pancreatitis or Cholecystitis. - ID, Dr. Lopez 09/09 Recs below 1. Will continue ertapenem and micafungin through a 10-day course, which will end the morning of September 3. Then stop antibiotics and observe. 2. I am continuing antibiotics for the 10-day course, as there has been some positive trend with respect to his procalcitonin, and I do wonder if there could be some degree of underlying aspiration pneumonia. Fungemia seems unlikely but as therapy with micafungin was initiated, I think it is reasonable to at least continue through a short two-week course. #Acute hypernatremia, present on admission, active. -- To be secondary to nephrogenic versus central diabetes insipidus -- Nephrology management as above -- Continue to follow nephrology recommendations - Nephrology following, Dr. Whatley 09/09 note - 500 bolus normal saline followed by an S 150 mL per hour - Continue with desmopressin 8 g IV daily - Chlorthalidone 500 mg IV daily - Continue to monitor BMP and urinary output - No indication for hemodialysis this time #Acute Kidney Injury, present on admission, improving Cr on admission at 3.52 and increasing after admission. Unknown history of kidney injury. - Nephrology (Drs. Haynes/Chacorta) currently following case. Hemodialysis done daily since 08/25/16 till 1-2 days ago. No longer an hemodialysis currently is catheter is removed - see above recs. #Acute Cholecystitis, resolved -- Patient is worsened white count 20.2 on 09/04, tender down to 18.7 on 09/05 continued fevers, due to acute cholecystitis based on HIDA scan and abdominal CT -- Cont ertapenem -- Under HIDA scan (" Nonvisualization of the gallbladder suggesting acute cholecystitis"), abdominal CT ("1. Small left pleural effusion with left lower lobe consolidation likely representing pneumonia. Cholelithiasis with probable cholecystitis due to the nonvisualization of the gallbladder on recent HIDA scan. Nonspecific presacral soft tissue thickening. ) -- LFTs remained relatively stable negative for hyperbilirubinemia -- Gen. surgery was consulted, Dr. Dash 's in the patient: " I suspect he has hadthis inflammatory process for the past two days. It does not seem well controlled with antibiotics. Given his down-trending lipase, I would beinclined to recommend a laparoscopic cholecystectomy except for the severity ofhis anoxic brain injury and his pulmonary status. I have discussed the optionswith the family and recommended a cholecystostomy tube. I have offered them a2nd opinion as there are some surgeons who might think that a laparoscopiccholecystectomy was the appropriate way to go, but I think a cholecystostomytube with continued intravenous antibiotics is in the patient's best interest.I also think we should hold his tube feedings to make him n.p.o. until hislipase starts coming down. General Surgery will continue to follow the patientand hopefully if he makes a good recovery he would be a candidate for anelective laparoscopic cholecystectomy 3-[address] prior to removal of his cholecystostomy tube." -- 09/06 Dr. garrett spent considerable amount of time investigating the cause cystostomy with Dr. Kang from radiology. According to him, the gallbladder is quite small, and the risk of perforating is high with cholecystostomy. If the patient is clinically improving and the pancreatitis is improving may not have to do this procedure urgently, he also feels that acute cholecystitis unlikely with a small gallbladder, as the stone has left and may be causing pancreatitis. Will discuss MRCP. -- TPN is discontinued on 09/06 AM as this is thought to be worsening his cholecystitis and pancreatitis, discussed with dietary 09/08 how to restart his nutrition, then far made that we will not have too many options with tube feeds unless we get him off of the renal diet. She can be off renal diet they can see how they can control the tube feeds as low-fat. Otherwise we will have to switch him to TPN. Follow up with Joan in dietary. #Metabolic Acidosis, present on admission, active Likely secondary to lactic acidosis and uremia - Monitor CMP: #Rhabdomyolysis, present on admission, [place] [id number]. Likely secondary to being in one position for 9 hours. Patient has large erythematous regions at pressure points of sacrum and upper thorax with open wound at sacrum. - Wound care consult -- Follow-up total CK is ordered for 09/08= 177 wnl #Hyperkalemia, present on admission, resolved - Kayexalate via feeding tube is given per nephro on 09/07 -- Continue to monitor #Stage II ulcers in the buttock areas -- Patient has a left rather large areas of stage II ulcers on either side of his gluteal cleft, make sure to check them from time to time with the help of wound care. They did not look infected as of 09/06 #Alcohol dependence -Patient currently sedated no need to institute CIWA protocol at this time #Drug dependence -Patient is a known user of cocaine and ice -Per family, last known use is around 5 months ago. Acetaminophen for mild pain when necessary. Bowel regimen Senna and MiraLAX scheduled and PRN. Zofran when necessary for nausea and vomiting. SubQ heparin for now. SCDs in place. Social: Patient is an undocumented immigrant. However he may be eligible for Emergent Alien Inpatient resources. He may not have resources for outpatient care. Family does not seem to be understanding of his prognosis, is expecting that he would recover completely. We will continue discussions. Palliative care. On 09/07, physical therapy has seen the patient still recommends residential facility via BLS transfer. Please have foster care social worker give way [employer] hospice care number. Patient's could potentially call this number for any financial help she could receive possibly even if she is not interested in hospice services. Disposition: Likely here for > 2 midnights. Dependent upon anoxic brain injury. Patient is improving at there be other problem except the fevers, may have to DC home with fevers. GI Prophylaxis: Not indicated (Patient extubated) VTE Prophylaxis: Sub-Q Heparin (Unfractionated), SCDs VTE Mechanical Devices: Intermittant Pneumatic CD Resuscitation Status: CPR: Attempt Resuscitation ( is ADM) Lisandro Bolivar MD Sep 09, 2016 18:36
[2016-09-09] MEDS: Micafungin Inj 100 MG in 0.9% Sodium Chloride 100 ML IV SCH (20:33)
[2016-09-09] MEDS: Ertapenem Inj 500 MG in 0.9% Sodium Chloride 50 ML IV SCH (22:52)
[2016-09-10] VITALS (7 sets, daily range): BP systolic 118–146; BP diastolic 78–88; PULSE 80–89; RESP 12–22; O2SAT 95–98
[2016-09-10] MEDS: 0.9% Sodium Chloride 1,000 ML IV SCH ×2 (01:28→08:44)
[2016-09-10 05:23] LABS: BASOPHILS % (AUTO) 0.8 % (0-3); EOSINOPHILS % (AUTO) 3.6 % (0-5); MONOCYTES % (AUTO) 6.3 % (4-12); Mean Corpuscular Hemoglobin 28.8 pg (27.0-35.0); Mean Corpuscular Volume 92.9 fL (81-100); NEUTROPHILS % (AUTO) 70.1 % (40-74); Platelet Count 204 bil/L (150-400)
[2016-09-10 05:52] LABS: Magnesium 1.7 mg/dL (1.6-2.6); Phosphorus 3.6 mg/dL (2.5-4.9)
--- NOTE | 2016-09-10 06:22 | NUR ---
No change in neuro status. Patient moans when being turned, otherwise does not move or appear to be in pain. Q2 hour turns, pillows under ankles, elbows, and back. Dressing to sacrum changed as it had a small amount of stool on it. Family at bedside providing frequent passive ROM and massage. Frequent oral care provided. Patient tolerating care well.
[2016-09-10] MEDS ORDERED: SODIUM CHLORIDE 0.9% IV SCH (08:30)
[2016-09-10] MEDS ORDERED: DESMOPRESSIN IV SCH (08:30)
[2016-09-10] MEDS: AMANTADINE 10 MG/ML TUBE SCH (08:42)
[2016-09-10] MEDS: Acetaminophen 32.5 mg/mL 20 mL Liquid PO PRN (08:42)
[2016-09-10] MEDS: Heparin 5,000 Unit/mL Inj SUBQ SCH ×2 (08:43→17:58)
[2016-09-10] MEDS: Thiamine Inj 200 MG in Dextrose 5% 50 ML IV SCH (08:44)
--- NOTE | 2016-09-10 10:42 | NUR ---
Inpatient Wound Nurse Patient seen in follow up for gluteal and thoracic spine wounds. Thoracic spine wounds are healed. Entire wound bed has filled in, epithelialized, no drainage, and dark red crusts flaked off easily, revealing dry, pink skin underneath. No dressings are needed. L gluteal wound appears improved from last week. Wound is 3 cm L x 4.5 cm W with no measurable depth, appears as healing blister. Skin is pink and moist, edges peeling, scant amount of serosanguinous drainage noted on bordered Mepilex. Area of intergluteal fold is red and moist. Nursing staff to continue use of bordered sacral Mepilex without barrier ointment, as ointment will block silicone contact layer and diminish adhesion. No sheet foam is needed. CWON will check on patient PRN unless nursing staff require more frequent wound implementation services analyst.
--- NOTE | 2016-09-10 11:28 | PCM.PNNEPH ---
DORA RIVAS DO 09/10/16 1128: Subjective Date of Service Sep 10, 2016 Subjective Overnight: Vital signs remained stable with ongoing fevers continuing, tube feedings continue. No events reported Today: Patient awake, lying in bed at 45 angle bedside. Does not respond verbally to questions and will have brief moments of tracking with eyes. Has received normal saline at 150 mL per hour, sodium level CXLIX today, BUN and creatinine remain elevated but stable. Urinary output over the last 12 hours 900 mL, yesterday 4.5 L total. AST ALT continue to trend down, lipase remains elevated. Exam Vital Signs Vital Sign - Last Date Time Temp Pulse Resp B/P Pulse Ox O2 Delivery O2 Flow Rate FiO2 09/10/16 10:34 88 09/10/16 08:27 38.3 12 128/81 96 Room Air 09/07/16 12:30 2.00 30 Intake and Output 09/09/16 09/09/16 09/10/16 Cumulative From/Thru 15:00 23:00 07:00 08/23/16 05:20 - 09/10/16 04:45 Intake Total 2120 ml 3177 ml 78968 ml Output Total 1600 ml 900 ml 26094 ml Balance 520 ml 2277 ml 3293 ml Intake Oral 10 ml IV Total 1450 ml 2485 ml 59724 ml Tube Feeding 510 ml 602 ml 15773 ml Tube Irrigant 160 ml 90 ml 5662 ml Output Urine Total 1600 ml 900 ml 81591 ml Stool Total 8490 ml Gastric Drainage Total 1070 ml Ultrafiltrate 4700 ml # Bowel Movements 11 Exam General: Sitting up in hospital bed at 45 angle, spontaneous opening of eyes. Nonverbally responsive though able to track movement with eyes HEENT: Normocephalic, atraumatic. Neck: No jugular venous distension. Cardiovascular: Regular rate and rhythm with no murmurs, rubs, or gallops appreciated Pulmonary: Decreased lung sounds bilaterally. Normal respiratory effort with no use of accessory muscles. Abdomen: Soft, nontender, nondistended. No rigidity and no guarding. Extremities: No clubbing, cyanosis, edema Skin: Warm to palpation, no rash IVs and Medications Medications Reviewed: Medications were reviewed in detail Lab and Diagnostics Result Diagram: 09/10/16 0430 09/10/16 0430 Microbiology Blood cultures pending MRSA swab pending X-Rays, CTs and MRIs CT BRAIN WITHOUT CONTRAST IMPRESSION: No acute disease. Dictated by: Hemant Gallegos M.D. on 08/23/2016 CT BRAIN WITHOUT CONTRAST IMPRESSION: 1. Diffuse bilateral hypodensity of the globus pallidus. This is a new finding when compared with the study dated 08/23/16. Differential considerations include anoxic injury, carbon monoxide neurotoxicity, excessive alcohol ingestion, and methanol or ethylene glycol ingestion. Dictated by: Dinora Kang M.D. 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 Dictated by: Jacob Mosqueda M.D. on 08/28/2016 CT CHEST WITHOUT CONTRAST IMPRESSION: Small basal left pleural effusion is unchanged, with associated left lower lobe compressive atelectasis. Superimposed pneumonia therefore cannot be excluded. Dictated by: Binh Ochoa M.D. on 09/07/2016 at 13:47 US RENAL SONOGRAM IMPRESSION: No hydronephrosis. Right renal cyst. Dictated by: Shobha Vale M.D. on 08/24/2016 US ABDOMEN, LIMITED IMPRESSION: Cholelithiasis, without justin gallbladder wall thickening to suggest acute cholecystitis at this time. Dictated by: Binh Ochoa M.D. on 09/07/2016 MR ABDOMEN MRCP IMPRESSION: 1. Markedly limited study due to motion artifact. 2. Cholelithiasis without evidence of cholecystitis. 3. No biliary ductal dilatation or definite choledocholithiasis. 4. No peripancreatic edema to suggest pancreatitis an MRI. No discrete pseudocyst identified. Dictated by: Bruce Valadez M.D. on 09/08/2016 at 17:47 US ABDOMEN IMPRESSION: 1. Cholelithiasis. 2. Mild gallbladder wall thickening. Acute cholecystitis cannot be excluded. 3. Echogenic liver. Finding typically represents fatty infiltration; however, finding is nonspecific and correlation with clinical and laboratory findings is recommended to exclude other etiologies including hepatic cirrhosis. 4. Slightly echogenic right kidney suspicious for developing medical renal disease. Please correlate with clinical and laboratory data. Dictated by: Swathi Jimenes MD, PhD on 08/29/2016 US ABDOMEN, LIMITED IMPRESSION: Cholelithiasis, without justin gallbladder wall thickening to suggest acute cholecystitis at this time. Dictated by: Binh Ochoa M.D. on 09/07/2016 X-RAY CHEST ONE VIEW, PORTABLE IMPRESSION: No acute disease is seen a semiupright portable chest. Tubes are considered appropriate radiographically. Dictated by: Hemant Gallegos M.D. on 08/23/2016 X-RAY CHEST ONE VIEW, PORTABLE IMPRESSION: Support lines as above. Otherwise, no acute pulmonary process. Dictated by: Shobha Vale M.D. on 08/24/2016 X-RAY CHEST ONE VIEW, PORTABLE IMPRESSION: No acute cardiopulmonary disease process. Dictated by: Swathi Jimenes MD, PhD on 08/25/2016 X-RAY CHEST ONE VIEW, PORTABLE IMPRESSION: 1. Left basilar atelectasis. Otherwise lungs are clear. 2. ET and enteric tubes. Dictated by: Jacob Mosqueda M.D. on 08/27/2016 at 9:53 X-RAY CHEST ONE VIEW, PORTABLE IMPRESSION: Stable left basilar atelectasis and support lines. Dictated by: Jacob Mosqueda M.D. on 08/28/2016 at 7:54 Additional Diagnostics ABG DateTimeAnalyzed 10:20:00 -_ pH ____7.354 - 7.350 7.450 pCO2 ___31.5__ -mmHg 35.0 45.0 pO2 160 -mmHg 69.0 116 HCO3- ___17.1__ -mmol/L 22.0 26.0 FIO2 ___45.0__ -% PRVC 20 - PEEP ____8.0__ -cmH2O Plan Impression 1. Acute kidney injury secondary to rhabdomyolysis. Required daily HD x 6, - 08/30, catheter removed 08/30. Daily urine output continues to be significant. BUN/creatinine continued to trend down 2. Hypernatremia, continues to oscillate between hypernatremic and normal serum sodium. Sodium today 149 3. Rhabdomyolysis, resolved 4. Persistent fevers. 5. Acute hypoxic respiratory failure, resolved. 6. Anoxic brain injury. 7. Acute transaminitis. Improving 8. Cholelithiasis with suspected gallstone pancreatitis 9. Polysubstance abuse. Plan: - Stop normal saline IV drip - Start one half normal saline 60 mL per hour - Stop desmopressin 8 g IV daily - Continue Chlorthalidone 500 mg IV daily - Continue to monitor BMP and urinary output - No indication for hemodialysis this time Ace Whatley DO 09/10/16 1330: Exam Lab and Diagnostics Result Diagram: 09/10/16 04309/[id number]/16429 Plan Plan: Patient was seen and examined along with Dr. Reid and discussed the findings and therapeutic plan which are detailed above. DORA RIVAS DO Sep 10, 2016 11:28 Ace Whatley DO Sep 10, 2016 13:30
[2016-09-10] MEDS: Chlorothiazide Inj 500 MG in Dextrose 5% 50 ML IV SCH (11:48)
--- NOTE | 2016-09-10 13:03 | PCM.PNSURG ---
Subjective Date of Service: Sep 10, 2016 Date of Service: Sep 10, 2016 Visit Information: Reason for Visit Anoxic/Brain Injury with resolved cholecystitis & improving acute pancreatitis Surgery/Surgery Date Post-Op Day # 18 Date of Admission: Aug 23, 2016 at 07:01 Hospital Day # Subjective: Patient seen with director of customer acquisition today. verbalized understanding that General Surgery is likely not indicated. Tube feedings continue. Patient will track occasionally with his eyes. Pain Management: No or Minimal Pain Neurological: Other (Anoxic brain injury) Objective Vital Sign- Last 8 Hours Date Time Temp Pulse Resp B/P Pulse Ox O2 Delivery O2 Flow Rate FiO2 09/10/16 10:34 88 09/10/16 08:27 38.3 86 12 128/81 96 Room Air Intake and Output- Last 8 Hour 09/10/16 Cumulative From/Thru 07:00 08/23/16 05:20 - 09/10/16 04:45 Intake Total 3177 ml 74242 ml Output Total 900 ml 33718 ml Balance 2277 ml 3293 ml Intake Oral 10 ml IV Total 2485 ml 40511 ml Tube Feeding 602 ml 61841 ml Tube Irrigant 90 ml 5662 ml Output Urine Total 900 ml 87438 ml Stool Total 8490 ml Gastric Drainage Total 1070 ml Ultrafiltrate 4700 ml # Bowel Movements 11 General: No Acute Distress, Other (Limited variable alertness unresponsiveness to physical and verbal stimulation.) Lungs: Clear to Auscultation Heart: Exam Unremarkable Abdomen: Soft, Non-tender Extremities: Thigh&Calf Soft/Nontender Neuro: Other Result Diagram: 09/10/16 0430 09/10/16 0430 Assessment & Plan Impression Primary Diagnosis: 1. Status post anoxic brain injury 2. Acute Pancreatitis - MR negative 3. Chronic cholecystitis - Resolved w/ cholelithiasis w/o choledocholithiasis 4. Acute kidney injury Other Diagnoses: Polysubstance abuse Problems: Plan We will see patient tomorrow and if his pancreatic enzymes continue to improve General Surgery will likely sign off. VTE Prophylaxis: Sub-Q Heparin (Unfractionated), SCDs Resuscitation Status: CPR: Attempt Resuscitation ( is ADM) Jack Patel PA-C Sep 10, 2016 13:03
--- NOTE | 2016-09-10 13:44 | PCM.PNMED ---
Subjective Date of Service Sep 10, 2016 Subjective No overnight events. Pt receiving nutrition through NGT. Exam Vital Signs Vital Sign - Last Date Time Temp Pulse Resp B/P Pulse Ox O2 Delivery O2 Flow Rate FiO2 09/10/16 10:34 88 09/10/16 08:27 38.3 12 128/81 96 Room Air 09/07/16 12:30 2.00 30 Intake and Output 09/09/16 09/09/16 09/10/16 Cumulative From/Thru 15:00 23:00 07:00 08/23/16 05:20 - 09/10/16 04:45 Intake Total 2120 ml 3177 ml 67893 ml Output Total 1600 ml 900 ml 10460 ml Balance 520 ml 2277 ml 3293 ml Intake Oral 10 ml IV Total 1450 ml 2485 ml 64441 ml Tube Feeding 510 ml 602 ml 11605 ml Tube Irrigant 160 ml 90 ml 5662 ml Output Urine Total 1600 ml 900 ml 74630 ml Stool Total 8490 ml Gastric Drainage Total 1070 ml Ultrafiltrate 4700 ml # Bowel Movements 11 Exam General: spontaneous opening of eyes. Nonverbally responsive. though able to track movement with eyes. HEENT: Normocephalic, atraumatic. Neck: No jugular venous distension. Cardiovascular: Regular rate and rhythm with no murmurs, rubs, or gallops appreciated Pulmonary: Decreased lung sounds bilaterally. Normal respiratory effort with no use of accessory muscles. Abdomen: Bowel tones present. Soft, nontender, nondistended. No rigidity and no guarding. Extremities: No clubbing, cyanosis, edema Skin: Warm to palpation, no rash IVs and Medications Medications Reviewed: Medications were reviewed in detail Lab and Diagnostics Result Diagram: 09/10/1642909/10/16 043 Microbiology Blood cultures pending MRSA swab pending X-Rays, CTs and MRIs CT BRAIN WITHOUT CONTRAST IMPRESSION: No acute disease. Dictated by: Hemant Gallegos M.D. on 08/23/2016 CT BRAIN WITHOUT CONTRAST IMPRESSION: 1. Diffuse bilateral hypodensity of the globus pallidus. This is a new finding when compared with the study dated 08/23/16. Differential considerations include anoxic injury, carbon monoxide neurotoxicity, excessive alcohol ingestion, and methanol or ethylene glycol ingestion. Dictated by: Dinora Kang M.D. 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 Dictated by: Jacob Mosqueda M.D. on 08/28/2016 CT CHEST WITHOUT CONTRAST IMPRESSION: Small basal left pleural effusion is unchanged, with associated left lower lobe compressive atelectasis. Superimposed pneumonia therefore cannot be excluded. Dictated by: Binh Ochoa M.D. on 09/07/2016 at 13:47 US RENAL SONOGRAM IMPRESSION: No hydronephrosis. Right renal cyst. Dictated by: Shobha Vale M.D. on 08/24/2016 US ABDOMEN, LIMITED IMPRESSION: Cholelithiasis, without justin gallbladder wall thickening to suggest acute cholecystitis at this time. Dictated by: Binh Ochoa M.D. on 09/07/2016 MR ABDOMEN MRCP IMPRESSION: 1. Markedly limited study due to motion artifact. 2. Cholelithiasis without evidence of cholecystitis. 3. No biliary ductal dilatation or definite choledocholithiasis. 4. No peripancreatic edema to suggest pancreatitis an MRI. No discrete pseudocyst identified. Dictated by: Bruce Valadez M.D. on 09/08/2016 at 17:47 US ABDOMEN IMPRESSION: 1. Cholelithiasis. 2. Mild gallbladder wall thickening. Acute cholecystitis cannot be excluded. 3. Echogenic liver. Finding typically represents fatty infiltration; however, finding is nonspecific and correlation with clinical and laboratory findings is recommended to exclude other etiologies including hepatic cirrhosis. 4. Slightly echogenic right kidney suspicious for developing medical renal disease. Please correlate with clinical and laboratory data. Dictated by: Swathi Jimenes MD, PhD on 08/29/2016 US ABDOMEN, LIMITED IMPRESSION: Cholelithiasis, without justin gallbladder wall thickening to suggest acute cholecystitis at this time. Dictated by: Binh Ochoa M.D. on 09/07/2016 X-RAY CHEST ONE VIEW, PORTABLE IMPRESSION: No acute disease is seen a semiupright portable chest. Tubes are considered appropriate radiographically. Dictated by: Hemant Gallegos M.D. on 08/23/2016 X-RAY CHEST ONE VIEW, PORTABLE IMPRESSION: Support lines as above. Otherwise, no acute pulmonary process. Dictated by: Sohbha Vale M.D. on 08/24/2016 X-RAY CHEST ONE VIEW, PORTABLE IMPRESSION: No acute cardiopulmonary disease process. Dictated by: Swathi Jimenes MD, PhD on 08/25/2016 X-RAY CHEST ONE VIEW, PORTABLE IMPRESSION: 1. Left basilar atelectasis. Otherwise lungs are clear. 2. ET and enteric tubes. Dictated by: Jacob Mosqueda M.D. on 08/27/2016 at 9:53 X-RAY CHEST ONE VIEW, PORTABLE IMPRESSION: Stable left basilar atelectasis and support lines. Dictated by: Jacob Mosqueda M.D. on 08/28/2016 at 7:54 Additional Diagnostics ABG DateTimeAnalyzed 10:20:00 -_ pH ____7.354 - 7.350 7.450 pCO2 ___31.5__ -mmHg 35.0 45.0 pO2 160 -mmHg 69.0 116 HCO3- ___17.1__ -mmol/L 22.0 26.0 FIO2 ___45.0__ -% PRVC 20 - PEEP ____8.0__ -cmH2O Assessment & Plan Santiagorudi Ann is a 41 year old male with no known past medical history who came in unresponsive after being found with vomit around him, sedated and intubated for acute hypoxemic respiratory failure secondary to aspiration for 5 days and extubated on hospital day 6 following successful spontaneous breathing trial. He remains awake and severally limited in ability to move proximal/axial muscles. #Anoxic Brain Injury, present on admission, active Secondary to aspiration and intoxication. Patient has had large volume of vomit suctioned out in the ED. --Initial EEG shows evidence of slowing but no other abnormalities to suggest that the patient is having clinical seizures causing his symptoms. There is significant metabolic dysfunction. - Intubated on 08/23/16, Extubated on 08/28/16. Zosyn was given for 7 days earlier in the hospital course but was stopped per ID recommendation. - ICU, Infectious disease, Palliative care, neurology and nephrology consults -- tube feeds resumed 09/09. SENIOR INTERIOR DESIGNER/PT/OT as appropriate. - Palliative care is involved to help this unfortunate pt and his family, we appreciate their recommendations. - Neurology - per Dr. Guillaume, follow-up EEG, He feels that there might be some improvement in patient's status though he will never regain his previous functional status. Dr. guillaume met with the family and confirmed that fully recovery is not possible. -- Fevers, polyuria, thought to be due to central etiology #Fevers, ongoing, thought to be central, active. -- Fevers could be because of central etiology per neurology -- Blood cultures are so far negative -- LFTs and lipase are slowly improving. UA is negative -- Chest x-ray still looks to have aspiration pneumonia, patient is currently on ertapenem. Chest CT ordered on 09/07 that showed no changes from the CXR. - MRCP did not show evidence of Pancreatitis or Cholecystitis. - ID, Dr. Lopez 09/09 Recs below 1. Will continue ertapenem and micafungin through a 10-day course, which will end the morning of September 3. Then stop antibiotics and observe. 2. I am continuing antibiotics for the 10-day course, as there has been some positive trend with respect to his procalcitonin, and I do wonder if there could be some degree of underlying aspiration pneumonia. Fungemia seems unlikely but as therapy with micafungin was initiated, I think it is reasonable to at least continue through a short two-week course. #Acute hypernatremia, present on admission, active. -- To be secondary to nephrogenic versus central diabetes insipidus -- Nephrology management as above -- Continue to follow nephrology recommendations - Nephrology following, Dr. Whatley 09/10 note - Stop normal saline IV drip - Start one half normal saline 60 mL per hour - Stop desmopressin 8 g IV daily - Continue Chlorthalidone 500 mg IV daily - Continue to monitor BMP and urinary output - No indication for hemodialysis this time #Acute Kidney Injury, present on admission, improving Cr on admission at 3.52 and increasing after admission. Unknown history of kidney injury. - Nephrology (Drs. Haynes/Chacorta) currently following case. Hemodialysis done daily since 08/25/16 till 1-2 days ago. No longer an hemodialysis currently is catheter is removed - see above recs. #Acute Cholecystitis, resolved -- Patient is worsened white count 20.2 on 09/04, tender down to 18.7 on 09/05 continued fevers, due to acute cholecystitis based on HIDA scan and abdominal CT -- Under HIDA scan (" Nonvisualization of the gallbladder suggesting acute cholecystitis"), abdominal CT ("1. Small left pleural effusion with left lower lobe consolidation likely representing pneumonia. Cholelithiasis with probable cholecystitis due to the nonvisualization of the gallbladder on recent HIDA scan. Nonspecific presacral soft tissue thickening. ) -- Gen. surgery was consulted, Dr. Dash. Initially thought may need laparoscopic cholecystectomy 3-[address] prior to removal. No surgery indicated at this time given improvement. Acute Pancreatitis - MR negative Chronic cholecystitis - Resolved w/ cholelithiasis w/o choledocholithiasis. Lipase has improved and is currently stable. -- TPN is discontinued on 09/06 AM as this is thought to be worsening his cholecystitis and pancreatitis, discussed with dietary 09/08 how to restart his nutrition, then far made that we will not have too many options with tube feeds unless we get him off of the renal diet. He can be off renal diet they can see how they can control the tube feeds as low-fat. Otherwise we will have to switch him to TPN. Follow up with Joan in dietary. #Metabolic Acidosis, present on admission, active Likely secondary to lactic acidosis and uremia - Monitor CMP: #Rhabdomyolysis, present on admission, [place] [id number]. Likely secondary to being in one position for 9 hours. Patient has large erythematous regions at pressure points of sacrum and upper thorax with open wound at sacrum. - Wound care consult -- Follow-up total CK is ordered for 09/08= 177 wnl #Hyperkalemia, present on admission, resolved - Kayexalate via feeding tube is given per nephro on 09/07 -- Continue to monitor #Stage II ulcers in the buttock areas -- Patient has a left rather large areas of stage II ulcers on either side of his gluteal cleft, make sure to check them from time to time with the help of wound care. They did not look infected as of 09/06 #Alcohol dependence -Patient currently sedated no need to institute CIWA protocol at this time #Drug dependence -Patient is a known user of cocaine and ice -Per family, last known use is around 5 months ago. Acetaminophen for mild pain when necessary. Bowel regimen Senna and MiraLAX scheduled and PRN. Zofran when necessary for nausea and vomiting. SubQ heparin for now. SCDs in place. Social: Patient is an undocumented immigrant. However he may be eligible for Emergent Alien Inpatient resources. He may not have resources for outpatient care. Family does not seem to be understanding of his prognosis, is expecting that he would recover completely. We will continue discussions. Palliative care. On 09/07, physical therapy has seen the patient still recommends [facility] via [facility] transfer. Please have socially responsible investment adviser [employer] [facility] [employer] hospice care number. Patient's could potentially call this number for any financial help she could receive possibly even if she is not interested in hospice services. Disposition: Likely here for > 2 midnights. Dependent upon anoxic brain injury. Patient is improving at there be other problem except the fevers, may have to DC home with fevers. GI Prophylaxis: Not indicated (Patient extubated) VTE Prophylaxis: Sub-Q Heparin (Unfractionated), SCDs VTE Mechanical Devices: Intermittant Pneumatic CD Resuscitation Status: CPR: Attempt Resuscitation ( is ADM) Lisandro Bolivar MD Sep 10, 2016 13:44
--- NOTE | 2016-09-10 13:49 | PCM.PALLBR ---
Palliative Brief Note Date of Service Sep 10, 2016 . Patient's family consistent regarding their wishes for ongoing care. Case management/discharge planning working on disposition. Palliative medicine will sign off at this time; please notify us if we may be of further assistance. Louie Bowman MD Sep 10, 2016 13:49
--- NOTE | 2016-09-10 16:49 | NUR ---
NUTRITION FOLLOW UP: ASSESS: 41 YO male admitted to CCU after pt found unresponsive. Pt with aspiration pneumonia and rhabdomyolysis and likely anoxic brain injury. Pt was extubated 08/28. He continues to have acute encephalopathy and remain NPO. MD requested TF be changed to a formula lower in fat on 09/08. Pt started TF of Jevity 1.5 on 09/09 and pt is currently at goal rate of 70 ML/hr. Nephrology continues to follow and manage fluids. PMHx: ETOH abuse. DIET: NPO. NUTRITION SUPPORT: Jevity 1.5 at goal rate of 70 ML/hr providing 2415 kcals, 103 g protein LABS: Reviewed. Na 149, BUN 54, Cr 1.86, Glu 127, AST 57, ALT 86, Alb 2.7, lipase 446. MEDICATIONS: Reviewed. GI: FMS in place: 600 mL output (09/08) SKIN: Thoracic spine wound healed. L gluteal wound improving per wound note. ANTHROPOMETRICS: Current Wt: 96.9 kg. Admit wt: 95.1 kg. IBW: 72.7 kg ESTIMATED NEEDS (Renal, wounds, BMI) Calories: 7867-9795 kcal/day (22-25 kcal/kg BW) Protein: 85-110 g protein (1.2-1.5 g/kg BW IBW) Fluid: Approx. ~2600 mL (25mL/kg BW) but fluids per nephrology at this time. NUTRITION DIAGNOSIS: 1) Inadequate oral intake related to inability to consume sufficient energy due to cognition, as evidenced by NPO status - PERSISTS. 2) Increased nutrient needs related to increased needs for disease state as evidenced by JUWAN and current skin issues - PERSISTS. INTERVENTION: 1) Recommend continuing current TF at this time. 2.) Fluids per nephrology. MONITOR/EVALUATE: Enteral feeding, labs, weights, GI/nutrition status. Follow per high nutrition risk guidelines.
--- NOTE | 2016-09-10 17:06 | NUR ---
SPEECH PATHOLOGY STRONGLY RECOMMENDS MBSS TO INSTRUMENTALLY ASSESS ANATOMY AND PHYSIOLOGY OF AERODIGESTIVE TRACT. RECOMMENDATIONS GIVEN VIA NOTES AND PAGES TO MD. ALSO RELAYED TO RN. HARD ROCK DRILL OPERATOR TO CONTINUE TO FOLLOW PT.
[2016-09-10] MEDS: Ertapenem Inj 500 MG in 0.9% Sodium Chloride 50 ML IV SCH (21:07)
[2016-09-10] MEDS: Micafungin Inj 100 MG in 0.9% Sodium Chloride 100 ML IV SCH (21:44)
[2016-09-11] MEDS ORDERED: 0.9% Sodium Chloride 250 ML ONE (00:17)
[2016-09-11 00:29] VITALS: BP 151/89; PULSE 92; RESP 18; O2SAT 98
[2016-09-11] MEDS: Heparin 5,000 Unit/mL Inj SUBQ SCH ×3 (00:50→16:29)
[2016-09-11 01:02] VITALS: PULSE 91
--- NOTE | 2016-09-11 07:27 | NUR ---
Skin Care Pt groaning with q2 turns, sacral site with mepalex inplace and no visible drainage clean, dry and intact. Family providing oral care and passive range of motion and massage on legs. Eyes opened in morning, non-verbal. FMS and Espinoza draining adequately with gravity. Complete linens changed and partial bedbath performed. continues to be at bedside advocating for his care.
[2016-09-11 07:30] VITALS: BP 132/90; PULSE 86; RESP 16; O2SAT 97
[2016-09-11 07:34] LABS: Lipase 405 U/L (13-60)
[2016-09-11 07:45] LABS: BASOPHILS % (AUTO) 0.7 % (0-3); EOSINOPHILS % (AUTO) 3.8 % (0-5); MONOCYTES % (AUTO) 6.8 % (4-12); Mean Corpuscular Hemoglobin 29.1 pg (27.0-35.0); Mean Corpuscular Volume 92.4 fL (81-100); NEUTROPHILS % (AUTO) 70.1 % (40-74); Platelet Count 225 bil/L (150-400)
[2016-09-11 08:00] VITALS: PULSE 91
[2016-09-11] MEDS: Chlorothiazide Inj 500 MG in Dextrose 5% 50 ML IV SCH (08:38)
[2016-09-11] MEDS: AMANTADINE 10 MG/ML TUBE SCH (08:40)
[2016-09-11] MEDS: Thiamine Inj 200 MG in Dextrose 5% 50 ML IV SCH (09:36)
--- NOTE | 2016-09-11 10:31 | NUR ---
Palliative care note D/A: Phone call to marleni Victoria to notify that Palliative Care is signing off case. Pt family are clear in their goals for him. P: No further need for palliative care at this time. Genet NANCE, CCM
--- NOTE | 2016-09-11 12:40 | PCM.PNMED ---
Subjective Date of Service Sep 11, 2016 Subjective No overnight events. Pt grimace when turned. Exam Vital Signs Vital Sign - Last Date Time Temp Pulse Resp B/P Pulse Ox O2 Delivery O2 Flow Rate FiO2 09/11/16 07:30 37.5 86 16 132/90 97 Room Air 09/07/16 12:30 2.00 30 Intake and Output 09/10/16 09/10/16 09/11/16 Cumulative From/Thru 15:00 23:00 07:00 08/23/16 05:20 - 09/11/16 06:49 Intake Total 2700 ml 1375 ml 07208 ml Output Total 2375 ml 2850 ml 91808 ml Balance 325 ml -1475 ml 2143 ml Intake Oral 10 ml IV Total 1550 ml 1015 ml 91581 ml Tube Feeding 770 ml 360 ml 41621 ml Tube Irrigant 380 ml 6042 ml Output Urine Total 2275 ml 2850 ml 17279 ml Stool Total 100 ml 8590 ml Gastric Drainage Total 0 ml 1070 ml Ultrafiltrate 4700 ml # Bowel Movements 11 Exam General: Spontaneous opening of eyes to nonverbal stimulus. Does track with eyes. HEENT: Normocephalic, atraumatic. +NGT w/ TFeeds. Neck: No jugular venous distension. Cardiovascular: Regular rate and rhythm with no murmurs, rubs, or gallops appreciated Pulmonary: Decreased lung sounds bilaterally. Normal respiratory effort with no use of accessory muscles. Abdomen: Bowel tones present. Soft, nontender, nondistended. No rigidity and no guarding. Extremities: No clubbing, cyanosis, edema Skin: Warm to palpation, no rash IVs and Medications Medications Reviewed: Medications were reviewed in detail Lab and Diagnostics Result Diagram: 09/11/16 0700 09/11/16 07 Microbiology Blood cultures pending MRSA swab pending X-Rays, CTs and MRIs CT BRAIN WITHOUT CONTRAST IMPRESSION: No acute disease. Dictated by: Hemant Gallegos M.D. on 08/23/2016 CT BRAIN WITHOUT CONTRAST IMPRESSION: 1. Diffuse bilateral hypodensity of the globus pallidus. This is a new finding when compared with the study dated 08/23/16. Differential considerations include anoxic injury, carbon monoxide neurotoxicity, excessive alcohol ingestion, and methanol or ethylene glycol ingestion. Dictated by: Dinora Kang M.D. 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 Dictated by: Jacob Mosqueda M.D. on 08/28/2016 CT CHEST WITHOUT CONTRAST IMPRESSION: Small basal left pleural effusion is unchanged, with associated left lower lobe compressive atelectasis. Superimposed pneumonia therefore cannot be excluded. Dictated by: Binh Ochoa M.D. on 09/07/2016 at 13:47 US RENAL SONOGRAM IMPRESSION: No hydronephrosis. Right renal cyst. Dictated by: Shobha Vale M.D. on 08/24/2016 US ABDOMEN, LIMITED IMPRESSION: Cholelithiasis, without justin gallbladder wall thickening to suggest acute cholecystitis at this time. Dictated by: Binh Ochoa M.D. on 09/07/2016 MR ABDOMEN MRCP IMPRESSION: 1. Markedly limited study due to motion artifact. 2. Cholelithiasis without evidence of cholecystitis. 3. No biliary ductal dilatation or definite choledocholithiasis. 4. No peripancreatic edema to suggest pancreatitis an MRI. No discrete pseudocyst identified. Dictated by: Bruce Valadez M.D. on 09/08/2016 at 17:47 US ABDOMEN IMPRESSION: 1. Cholelithiasis. 2. Mild gallbladder wall thickening. Acute cholecystitis cannot be excluded. 3. Echogenic liver. Finding typically represents fatty infiltration; however, finding is nonspecific and correlation with clinical and laboratory findings is recommended to exclude other etiologies including hepatic cirrhosis. 4. Slightly echogenic right kidney suspicious for developing medical renal disease. Please correlate with clinical and laboratory data. Dictated by: Swathi Jimenes MD, PhD on 08/29/2016 US ABDOMEN, LIMITED IMPRESSION: Cholelithiasis, without justin gallbladder wall thickening to suggest acute cholecystitis at this time. Dictated by: Binh Ochoa M.D. on 09/07/2016 X-RAY CHEST ONE VIEW, PORTABLE IMPRESSION: No acute disease is seen a semiupright portable chest. Tubes are considered appropriate radiographically. Dictated by: Hemant Gallegos M.D. on 08/23/2016 X-RAY CHEST ONE VIEW, PORTABLE IMPRESSION: Support lines as above. Otherwise, no acute pulmonary process. Dictated by: Shobha Vale M.D. on 08/24/2016 X-RAY CHEST ONE VIEW, PORTABLE IMPRESSION: No acute cardiopulmonary disease process. Dictated by: Swathi Jimenes MD, PhD on 08/25/2016 X-RAY CHEST ONE VIEW, PORTABLE IMPRESSION: 1. Left basilar atelectasis. Otherwise lungs are clear. 2. ET and enteric tubes. Dictated by: Jacob Mosqueda M.D. on 08/27/2016 at 9:53 X-RAY CHEST ONE VIEW, PORTABLE IMPRESSION: Stable left basilar atelectasis and support lines. Dictated by: Jacob Mosqueda M.D. on 08/28/2016 at 7:54 Additional Diagnostics ABG DateTimeAnalyzed 10:20:00 -_ pH ____7.354 - 7.350 7.450 pCO2 ___31.5__ -mmHg 35.0 45.0 pO2 160 -mmHg 69.0 116 HCO3- ___17.1__ -mmol/L 22.0 26.0 FIO2 ___45.0__ -% PRVC 20 - PEEP ____8.0__ -cmH2O Assessment & Plan Santiago Ann is a 41 year old male with no known past medical history who came in unresponsive after being found with vomit around him, sedated and intubated for acute hypoxemic respiratory failure secondary to aspiration for 5 days and extubated on hospital day 6 following successful spontaneous breathing trial. He remains awake and severally limited in ability to move proximal/axial muscles. #Anoxic Brain Injury, present on admission, active Secondary to aspiration and intoxication. Patient has had large volume of vomit suctioned out in the ED. --Initial EEG shows evidence of slowing but no other abnormalities to suggest that the patient is having clinical seizures causing his symptoms. There is significant metabolic dysfunction. - Intubated on 08/23/16, Extubated on 08/28/16. Zosyn was given for 7 days earlier in the hospital course but was stopped per ID recommendation. - ICU, Infectious disease, Palliative care, neurology and nephrology consults -- tube feeds resumed 09/09. MARSHMALLOW MACHINE OPERATOR/PT/OT as appropriate. - Palliative care is involved to help this unfortunate pt and his family, we appreciate their recommendations. - Neurology - per Dr. Guillaume, follow-up EEG, He feels that there might be some improvement in patient's status though he will never regain his previous functional status. Dr. guillaume met with the family and confirmed that fully recovery is not possible. -- Fevers, polyuria, thought to be due to central etiology #Fevers, ongoing, thought to be central, active. -- Fevers could be because of central etiology per neurology -- Blood cultures are so far negative -- LFTs and lipase are slowly improving. UA is negative -- Chest x-ray still looks to have aspiration pneumonia, patient is currently on ertapenem. Chest CT ordered on 09/07 that showed no changes from the CXR. - MRCP did not show evidence of Pancreatitis or Cholecystitis. - ID, Dr. Lopez 09/09 Recs below 1. Will continue ertapenem and micafungin through a 10-day course, which will end the morning of September 3. Then stop antibiotics and observe. 2. I am continuing antibiotics for the 10-day course, as there has been some positive trend with respect to his procalcitonin, and I do wonder if there could be some degree of underlying aspiration pneumonia. Fungemia seems unlikely but as therapy with micafungin was initiated, I think it is reasonable to at least continue through a short two-week course. #Acute hypernatremia, present on admission, active. -- To be secondary to nephrogenic versus central diabetes insipidus -- Nephrology management as above -- Continue to follow nephrology recommendations - Nephrology following, Dr. Whatley- fill follow up recs. #Acute Kidney Injury, present on admission, improving Cr on admission at 3.52 and increasing after admission. Unknown history of kidney injury. - Nephrology (Drs. Haynes/Chacorta) currently following case. Hemodialysis done daily since 08/25/16 till 1-2 days ago. No longer an hemodialysis currently is catheter is removed - see above recs. #Acute Cholecystitis, resolved -- Patient is worsened white count 20.2 on 09/04, tender down to 18.7 on 09/05 continued fevers, due to acute cholecystitis based on HIDA scan and abdominal CT. Under HIDA scan- Nonvisualization of the gallbladder suggesting acute cholecystitis"), abdominal CT-small left pleural effusion with left lower lobe consolidation likely representing pneumonia. Cholelithiasis with probable cholecystitis due to the nonvisualization of the gallbladder on recent HIDA scan. -- Gen. surgery was consulted, Dr. Dash as intial thought of CCK. Upon follow up MRCP was negative for Acute Pancreatitis and Chronic cholecystitis. Resolved cholelithiasis w/o choledocholithiasis. Lipase has improved and is currently stable. No surgery indicated at this time given improvement. Will sign off at this time. -- TPN is discontinued on 09/06 AM as this is thought to be worsening his cholecystitis and pancreatitis. - 09/10 MARSHMALLOW MACHINE OPERATOR request MBS. Pt may need PEG tube which family would be interested in. #Metabolic Acidosis, present on admission, active Likely secondary to lactic acidosis and uremia - Monitor CMP: #Rhabdomyolysis, present on admission, [place] [id number]. Likely secondary to being in one position for 9 hours. Patient has large erythematous regions at pressure points of sacrum and upper thorax with open wound at sacrum. - Wound care consult -- Follow-up total CK is ordered for 09/08= 177 wnl #Hyperkalemia, present on admission, resolved - Kayexalate via feeding tube is given per nephro on 09/07 -- Continue to monitor #Stage II ulcers in the buttock areas -- Patient has a left rather large areas of stage II ulcers on either side of his gluteal cleft, make sure to check them from time to time with the help of wound care. They did not look infected as of 09/06 #Alcohol dependence -Patient currently sedated no need to institute CIWA protocol at this time #Drug dependence -Patient is a known user of cocaine and ice -Per family, last known use is around 5 months ago. Acetaminophen for mild pain when necessary. Bowel regimen Senna and MiraLAX scheduled and PRN. Zofran when necessary for nausea and vomiting. SubQ heparin for now. SCDs in place. Social: Patient is an undocumented immigrant. However he may be eligible for Emergent Alien Inpatient resources. He may not have resources for outpatient care. Family does not seem to be understanding of his prognosis, is expecting that he would recover completely. We will continue discussions. Palliative care. On 09/07, physical therapy has seen the patient still recommends senior living facility via BLS transfer. Please have social worker give way [employer] [facility] hospice care number. Patient's could potentially call this number for any financial help she could receive possibly even if she is not interested in hospice services. Disposition: Likely here for > 2 midnights. Dependent upon anoxic brain injury. Patient is improving at there be other problem except the fevers, may have to DC home with fevers. GI Prophylaxis: Not indicated (Patient extubated) VTE Prophylaxis: Sub-Q Heparin (Unfractionated), SCDs VTE Mechanical Devices: Intermittant Pneumatic CD Resuscitation Status: CPR: Attempt Resuscitation ( is ADM) Lisandro Bolivar MD Sep 11, 2016 12:40 Lisandro Bolivar MD Sep 11, 2016 12:40
--- NOTE | 2016-09-11 13:09 | PCM.PNNEPH ---
DORA RIVAS DO 09/11/16 1309: Subjective Date of Service Sep 11, 2016 Subjective Overnight: Vital signs showed some hypertensive spikes, fever spike yesterday 37.6 1800 hrs. otherwise afebrile. Tube feedings continue. No events reported Today: Patient awake, playing in a hospital bed. Still will not have meaningful verbal response to questions and will track with his eyes. BUN and creatinine remain elevated but stable. Urinary output over the last 12-24 hours approximately 3 L AST ALT continue to trend down, lipase remains elevated. Palliative care signed off on patient as they still wish for full interventional course of care. At this point it is unclear of patient disposition Exam Vital Signs Vital Sign - Last Date Time Temp Pulse Resp B/P Pulse Ox O2 Delivery O2 Flow Rate FiO2 09/11/16 07:30 37.5 86 16 132/90 97 Room Air 09/07/16 12:30 2.00 30 Intake and Output 09/10/16 09/10/16 09/11/16 Cumulative From/Thru 15:00 23:00 07:00 08/23/16 05:20 - 09/11/16 06:49 Intake Total 2700 ml 1375 ml 06681 ml Output Total 2375 ml 2850 ml 54329 ml Balance 325 ml -1475 ml 2143 ml Intake Oral 10 ml IV Total 1550 ml 1015 ml 04503 ml Tube Feeding 770 ml 360 ml 24439 ml Tube Irrigant 380 ml 6042 ml Output Urine Total 2275 ml 2850 ml 97138 ml Stool Total 100 ml 8590 ml Gastric Drainage Total 0 ml 1070 ml Ultrafiltrate 4700 ml # Bowel Movements 11 Exam General: Sitting up in hospital bed spontaneous opening of eyes. No verbal response to questions though able to track movement with eyes. Minimal response to commands HEENT: Normocephalic, atraumatic. Neck: No jugular venous distension. Cardiovascular: Regular rate and rhythm with no murmurs, rubs, or gallops appreciated Pulmonary: Decreased lung sounds bilaterally. Normal respiratory effort with no use of accessory muscles. Abdomen: Soft, nontender, nondistended. No rigidity and no guarding. Extremities: No clubbing, cyanosis, edema Skin: Warm to palpation, no rash Lab and Diagnostics Result Diagram: 09/11/16 0700 09/11/16 0700 Microbiology Blood cultures pending MRSA swab pending X-Rays, CTs and MRIs CT BRAIN WITHOUT CONTRAST IMPRESSION: No acute disease. Dictated by: Hemant Gallegos M.D. on 08/23/2016 CT BRAIN WITHOUT CONTRAST IMPRESSION: 1. Diffuse bilateral hypodensity of the globus pallidus. This is a new finding when compared with the study dated 08/23/16. Differential considerations include anoxic injury, carbon monoxide neurotoxicity, excessive alcohol ingestion, and methanol or ethylene glycol ingestion. Dictated by: Dinora Kang M.D. 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 Dictated by: Jacob Mosqueda M.D. on 08/28/2016 CT CHEST WITHOUT CONTRAST IMPRESSION: Small basal left pleural effusion is unchanged, with associated left lower lobe compressive atelectasis. Superimposed pneumonia therefore cannot be excluded. Dictated by: Binh Ochoa M.D. on 09/07/2016 at 13:47 US RENAL SONOGRAM IMPRESSION: No hydronephrosis. Right renal cyst. Dictated by: Shobha Vale M.D. on 08/24/2016 US ABDOMEN, LIMITED IMPRESSION: Cholelithiasis, without justin gallbladder wall thickening to suggest acute cholecystitis at this time. Dictated by: Binh Ochoa M.D. on 09/07/2016 MR ABDOMEN MRCP IMPRESSION: 1. Markedly limited study due to motion artifact. 2. Cholelithiasis without evidence of cholecystitis. 3. No biliary ductal dilatation or definite choledocholithiasis. 4. No peripancreatic edema to suggest pancreatitis an MRI. No discrete pseudocyst identified. Dictated by: Bruce Valadez M.D. on 09/08/2016 at 17:47 US ABDOMEN IMPRESSION: 1. Cholelithiasis. 2. Mild gallbladder wall thickening. Acute cholecystitis cannot be excluded. 3. Echogenic liver. Finding typically represents fatty infiltration; however, finding is nonspecific and correlation with clinical and laboratory findings is recommended to exclude other etiologies including hepatic cirrhosis. 4. Slightly echogenic right kidney suspicious for developing medical renal disease. Please correlate with clinical and laboratory data. Dictated by: Swathi Jimenes MD, PhD on 08/29/2016 US ABDOMEN, LIMITED IMPRESSION: Cholelithiasis, without justin gallbladder wall thickening to suggest acute cholecystitis at this time. Dictated by: Binh Ochoa M.D. on 09/07/2016 X-RAY CHEST ONE VIEW, PORTABLE IMPRESSION: No acute disease is seen a semiupright portable chest. Tubes are considered appropriate radiographically. Dictated by: Hemant Gallegos M.D. on 08/23/2016 X-RAY CHEST ONE VIEW, PORTABLE IMPRESSION: Support lines as above. Otherwise, no acute pulmonary process. Dictated by: Shobha Vale M.D. on 08/24/2016 X-RAY CHEST ONE VIEW, PORTABLE IMPRESSION: No acute cardiopulmonary disease process. Dictated by: Swathi Jimenes MD, PhD on 08/25/2016 X-RAY CHEST ONE VIEW, PORTABLE IMPRESSION: 1. Left basilar atelectasis. Otherwise lungs are clear. 2. ET and enteric tubes. Dictated by: Jacob Mosqueda M.D. on 08/27/2016 at 9:53 X-RAY CHEST ONE VIEW, PORTABLE IMPRESSION: Stable left basilar atelectasis and support lines. Dictated by: Jacob Mosqueda M.D. on 08/28/2016 at 7:54 Additional Diagnostics ABG DateTimeAnalyzed 10:20:00 -_ pH ____7.354 - 7.350 7.450 pCO2 ___31.5__ -mmHg 35.0 45.0 pO2 160 -mmHg 69.0 116 HCO3- ___17.1__ -mmol/L 22.0 26.0 FIO2 ___45.0__ -% PRVC 20 - PEEP ____8.0__ -cmH2O Plan Impression 1. Acute kidney injury secondary to rhabdomyolysis. Required daily HD x 6, - 08/30, catheter removed 08/30. Daily urine output continues to be significant. BUN/creatinine continued to trend down 2. Hypernatremia, continues to oscillate between hypernatremic and normal serum sodium. Sodium today 148 3. Rhabdomyolysis, resolved 4. Persistent fevers, improving 5. Acute hypoxic respiratory failure, resolved. 6. Anoxic brain injury. 7. Acute transaminitis. Improving 8. Cholelithiasis with suspected gallstone pancreatitis 9. Polysubstance abuse. Plan: - Stop normal saline IV drip - Stop Chlorthalidone 500 mg IV daily - Start chlorthalidone 25 mg daily, this may need to be crushed into tube feeds. - Continue free water flushes 300 mL every 6 hours - Continue to monitor BMP and urinary output - No indication for hemodialysis this time Ace Whatley DO 09/11/16 1559: Exam Lab and Diagnostics Result Diagram: 09/11/16 0700 09/11/16 0700 Plan Plan: Nephrology attending: Patient was seen and examined and the case thoroughly discussed with the internal medicine resident and this is in the note as detailed above. I agree with the findings and our therapeutic plan. As his renal function continues to improve most likely we will be signing off in several days. DORA RIVAS DO Sep 11, 2016 13:09 Ace Whatley DO Sep 11, 2016 15:59
[2016-09-11 13:54] VITALS: BP 142/84; PULSE 84; RESP 16; O2SAT 99
--- NOTE | 2016-09-11 15:08 | PCM.PNSURG ---
Subjective Date of Service: Sep 11, 2016 Date of Service: Sep 11, 2016 Visit Information: Reason for Visit Anoxic/Brain Injury with resolved cholecystitis & improving acute pancreatitis Surgery/Surgery Date Post-Op Day # Date of Admission: Aug 23, 2016 at 07:01 Hospital Day # 19 Subjective: Patient seen with plant sciences professor today. Sister verbalized understanding that General Surgery is likely not indicated. Tube feedings continue. Patient will track occasionally with his eyes. Gastrointestinal: Not Tolerating Oral Feedings, Other (NG feeding tube) Pain Management: No or Minimal Pain Neurological: Other (Anoxic Brain Injury) Objective Vital Sign- Last 8 Hours Date Time Temp Pulse Resp B/P Pulse Ox O2 Delivery O2 Flow Rate FiO2 09/11/16 13:54 37.2 84 16 142/84 99 Room Air 09/11/16 08:30 Supplement Oxygen 09/11/16 08:00 91 09/11/16 07:30 37.5 86 16 132/90 97 Room Air Intake and Output- Last 8 Hour 09/11/16 Cumulative From/Thru 07:00 08/23/16 05:20 - 09/11/16 06:49 Intake Total 1375 ml 53475 ml Output Total 2850 ml 61016 ml Balance -1475 ml 2143 ml Intake Oral 10 ml IV Total 1015 ml 92066 ml Tube Feeding 360 ml 81730 ml Tube Irrigant 6042 ml Output Urine Total 2850 ml 67402 ml Stool Total 8590 ml Gastric Drainage Total 0 ml 1070 ml Ultrafiltrate 4700 ml # Bowel Movements 11 General: Other ((Limited variable alertness unresponsiveness to physical and verbal stimulation.)) Lungs: Clear to Auscultation Heart: Exam Unremarkable Abdomen: Soft, Non-tender, Non-distended, Normoactive bowel tones Extremities: Thigh&Calf Soft/Nontender Result Diagram: 09/11/16 0700 09/11/16 0700 Assessment & Plan Impression 1. Status post anoxic brain injury 2. Acute Pancreatitis - MR negative 3. Chronic cholecystitis - Resolved w/ cholelithiasis w/o choledocholithiasis 4. Acute kidney injury Problems: Plan Communicated with the attending hospitalist that general surgery is likely not indicated at this time; therefore we will sign off for now. They may however consult General Surgery for a PEG tube in the future. VTE Prophylaxis: Sub-Q Heparin (Unfractionated), SCDs Resuscitation Status: CPR: Attempt Resuscitation ( is ADM) Jack Patel PA-C Sep 11, 2016 15:08
--- NOTE | 2016-09-11 15:48 | NUR ---
MBSS was scheduled for 1530 this afternoon. Pt was somnolent and did not awaken to an appropriate level for evaluation. Discussed with family, via ground crewman mission support. MBSS will be attempted tomorrow, discussed with radiology.
--- NOTE | 2016-09-11 17:13 | NUR ---
Mentation No change in neurological status, non verbal, lethargic, opens eyes to voice. No sign and symptoms of pain noted. Q2 turns every 2 hours for repositioning to prevent skin breakdown. Stable vital signs and temp has been 37.[address] Lopez at bed side to assess patient. Tube feeding Jevity 1.5 running at 70mls/hour with 300ml flush Q6 hours via NG. FMS bag out put 200cc black brown liquid stool and Espinoza patent and draining straw colored urine. XR barium has been scheduled for tomorrow due to patient is unable to participate due to lethargy and follow speech notes. Physical therapy worked with patient this shift and see PT notes. spouse at bed side and uses call light as needed. SCD on. Continue to monitor vital signs, pain, skin, Q2 turns, tube feedings, and safety.
--- NOTE | 2016-09-11 17:29 | PROG NOTE ---
[address] [address] PROGRESS NOTE PATIENT: SANDY SOSA : 1975 MR#: [id number] ADMIT: 08/23/2016 JOB ID: [id number] DATE: 09/11/2016 INFECTIOUS DISEASE FOLLOWUP NOTE: REASON FOR FOLLOWUP: Persistent fevers in a patient with severe anoxic brain injury. INTERVAL HISTORY: Unfortunately the patient is once again unarousable today. Yesterday when I saw him the patient could answer a few questions fairly appropriately but since then he has been largely unresponsive and unable to respond. The patient's mother, who is in the room, tells me he was speaking earlier but the nurse has not seen him interacting at all today. PHYSICAL EXAMINATION: Reveals a very lethargic unarousable gentleman, lying supine in his hospital bed. His last temp was 38.3 yesterday morning. He has been afebrile since 37.2 now, pulse 84, respiratory rate 16, blood pressure 142/84. He is saturating very well on room air. His eyes are without conjunctivitis. I cannot examine his mouth as he is not opening it. His lungs are relatively clear posteriorly. Cardiac tones regular rate and rhythm. Abdomen is benign. Extremities are basically flaccid. LABORATORIES: Lab studies include a white count stable at 11,000, normal diff, platelets 225 stable, creatinine 1.61 slowly improving. ALT is 145; it has actually bumped up a bit. AST 98. Albumin 3.2. Lipase 405, still elevated, and that was of this morning. Procalcitonin 0.23 and that has actually been coming down greatly. It was as high as a 8.6 back on August 26, over the past two weeks it has come all the way down to 0.23. Micro studies include 20 or so negative blood cultures. Other studies negative for C. difficile. No imaging studies have been done recently. IMPRESSION: This patient continues to improve in many respects including improving renal function and diminishing fevers, but of course the overwhelming problem is his very limited mental status secondary to his anoxic brain injury. He waxes and wanes, though much of the time is basically unresponsive, and seems to have almost no ability to move his extremities. From an infectious disease point of view he has had sustained high fevers which have been unexplained, though he did have very high procalcitonin, which has improved and is now basically down to normal. As of today I think it is reasonable to stop all antibiotics and see how he does. RECOMMENDATIONS: 1. Will discontinue the patient's ertapenem and micafungin as of this morning. 2. Will continue to watch this patient with interest, especially his liver function tests, white blood count, and fever curve. 3. I hope this patient recovers some more neurologic function because at this point he is obviously totally nonfunctional and 100% dependent on others for all aspects of his care. Thank you very much.
[2016-09-11 18:17] VITALS: BP 138/92; PULSE 94; RESP 16; O2SAT 98
[2016-09-11] MEDS: Acetaminophen 32.5 mg/mL 20 mL Liquid PO PRN (18:23)
--- NOTE | 2016-09-11 18:31 | NUR ---
Temp Temp 101.1. PRn Tylenol given as ordered. Ghassan stratton hospitalist. Awaiting orders.
--- NOTE | 2016-09-11 18:42 | NUR ---
Temp Hospitalist called and no new orders. will continue to monitor temp.
[2016-09-12] VITALS (7 sets, daily range): BP systolic 118–137; BP diastolic 84–90; PULSE 98–111; RESP 19–22; O2SAT 94–98
[2016-09-12] MEDS: Heparin 5,000 Unit/mL Inj SUBQ SCH ×3 (00:36→16:09)
--- NOTE | 2016-09-12 06:53 | NUR ---
Shift note no significant changes in condition, continues to be non-verbal , did open eyes at one point but not tracking TQ2 family doing ROM occasional leakage of FMS need to milk w/turning
--- NOTE | 2016-09-12 09:06 | NUR ---
Spoke with MD re: waxing/waning alertness and MBSS. Rec: PEG for nutrition/hydration for stable nutrition and MBSS when more alert/awake and able to tolerate this study. MD in agreement with plan. CLAIMS ACCOUNT SPECIALIST to continue to follow.
--- NOTE | 2016-09-12 09:12 | PCM.PNNEPH ---
DORA ESPOSITO DO 09/12/16 0912: Subjective Date of Service Sep 12, 2016 Subjective Overnight: Temperature spike of 101.1. Continued to be non-verbal. No other events reported Today: Awaiting a.m. Labs. ~2 L urine output today, ~8 L urine output yesterday. Other vital signs Exam Vital Signs Vital Sign - Last Date Time Temp Pulse Resp B/P Pulse Ox O2 Delivery O2 Flow Rate FiO2 09/12/16 06:13 37.2 104 19 137/90 94 Room Air 09/07/16 12:30 2.00 30 Intake and Output 09/11/16 09/11/16 09/12/16 Cumulative From/Thru 15:00 23:00 07:00 08/23/16 05:20 - 09/12/16 06:30 Intake Total 4063 ml 1574 ml 00955 ml Output Total 5100 ml 2350 ml 02789 ml Balance -1037 ml -776 ml 330 ml Intake Oral 550 ml 560 ml IV Total 584 ml 67 ml 07104 ml Tube Feeding 1637 ml 907 ml 23076 ml Tube Irrigant 1292 ml 600 ml 7934 ml Output Urine Total 5100 ml 2150 ml 14490 ml Stool Total 200 ml 8790 ml Gastric Drainage Total 1070 ml Ultrafiltrate 4700 ml # Bowel Movements 11 Exam General: Lying in hospital bed spontaneous opening of eyes. No verbal response to questions though able to track movement with eyes. Minimal response to commands HEENT: Normocephalic, atraumatic. Neck: No jugular venous distension. Cardiovascular: Regular rate and rhythm with no murmurs, rubs, or gallops appreciated Pulmonary: Decreased lung sounds bilaterally. Normal respiratory effort with no use of accessory muscles. Abdomen: Soft, nontender, nondistended. No rigidity and no guarding. Extremities: No clubbing, cyanosis, edema Skin: Warm to palpation, no rash Lab and Diagnostics Result Diagram: 09/11/16 0700 09/11/16 07 Microbiology Blood cultures pending MRSA swab pending X-Rays, CTs and MRIs CT BRAIN WITHOUT CONTRAST IMPRESSION: No acute disease. Dictated by: Hemant Gallegos M.D. on 08/23/2016 CT BRAIN WITHOUT CONTRAST IMPRESSION: 1. Diffuse bilateral hypodensity of the globus pallidus. This is a new finding when compared with the study dated 08/23/16. Differential considerations include anoxic injury, carbon monoxide neurotoxicity, excessive alcohol ingestion, and methanol or ethylene glycol ingestion. Dictated by: Dinora Kang M.D. 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 Dictated by: Jacob Mosqueda M.D. on 08/28/2016 CT CHEST WITHOUT CONTRAST IMPRESSION: Small basal left pleural effusion is unchanged, with associated left lower lobe compressive atelectasis. Superimposed pneumonia therefore cannot be excluded. Dictated by: Binh Ochoa M.D. on 09/07/2016 at 13:47 US RENAL SONOGRAM IMPRESSION: No hydronephrosis. Right renal cyst. Dictated by: Shobha Vale M.D. on 08/24/2016 US ABDOMEN, LIMITED IMPRESSION: Cholelithiasis, without justin gallbladder wall thickening to suggest acute cholecystitis at this time. Dictated by: Binh Ochoa M.D. on 09/07/2016 MR ABDOMEN MRCP IMPRESSION: 1. Markedly limited study due to motion artifact. 2. Cholelithiasis without evidence of cholecystitis. 3. No biliary ductal dilatation or definite choledocholithiasis. 4. No peripancreatic edema to suggest pancreatitis an MRI. No discrete pseudocyst identified. Dictated by: Bruce Valadez M.D. on 09/08/2016 at 17:47 US ABDOMEN IMPRESSION: 1. Cholelithiasis. 2. Mild gallbladder wall thickening. Acute cholecystitis cannot be excluded. 3. Echogenic liver. Finding typically represents fatty infiltration; however, finding is nonspecific and correlation with clinical and laboratory findings is recommended to exclude other etiologies including hepatic cirrhosis. 4. Slightly echogenic right kidney suspicious for developing medical renal disease. Please correlate with clinical and laboratory data. Dictated by: Swathi Jimnees MD, PhD on 08/29/2016 US ABDOMEN, LIMITED IMPRESSION: Cholelithiasis, without justin gallbladder wall thickening to suggest acute cholecystitis at this time. Dictated by: Binh Ochoa M.D. on 09/07/2016 X-RAY CHEST ONE VIEW, PORTABLE IMPRESSION: No acute disease is seen a semiupright portable chest. Tubes are considered appropriate radiographically. Dictated by: Hemant Gallegos M.D. on 08/23/2016 X-RAY CHEST ONE VIEW, PORTABLE IMPRESSION: Support lines as above. Otherwise, no acute pulmonary process. Dictated by: Shobha Vale M.D. on 08/24/2016 X-RAY CHEST ONE VIEW, PORTABLE IMPRESSION: No acute cardiopulmonary disease process. Dictated by: Swathi Jimenes MD, PhD on 08/25/2016 X-RAY CHEST ONE VIEW, PORTABLE IMPRESSION: 1. Left basilar atelectasis. Otherwise lungs are clear. 2. ET and enteric tubes. Dictated by: Jacob Mosqueda M.D. on 08/27/2016 at 9:53 X-RAY CHEST ONE VIEW, PORTABLE IMPRESSION: Stable left basilar atelectasis and support lines. Dictated by: Jacob Mosqueda M.D. on 08/28/2016 at 7:54 Additional Diagnostics ABG DateTimeAnalyzed 10:20:00 -_ pH ____7.354 - 7.350 7.450 pCO2 ___31.5__ -mmHg 35.0 45.0 pO2 160 -mmHg 69.0 116 HCO3- ___17.1__ -mmol/L 22.0 26.0 FIO2 ___45.0__ -% PRVC 20 - PEEP ____8.0__ -cmH2O Plan Impression 1. Acute kidney injury secondary to rhabdomyolysis. Required daily HD x 6, - 08/30, catheter removed 08/30. Daily urine output continues to be significant. BUN/Cr have slight uptrend today 2. 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 Hypernatremia, continues to oscillate between hypernatremic and normal serum sodium. 4. Rhabdomyolysis, resolved 5. Persistent fevers 6. Acute hypoxic respiratory failure, resolved. 7. Anoxic brain injury. 8. Acute transaminitis. 9. Cholelithiasis with suspected gallstone pancreatitis 10. Polysubstance abuse. Plan: - Start DDVAP 7 g IV twice a day - Stop Chlorthaladone - Continue free water flushes 300 mL every 6 hours - 1/2 NS 125mL per hour - Continue to monitor BMP and urinary output - No indication for hemodialysis this time Ace Whatley DO 09/12/16 1316: Exam Lab and Diagnostics Result Diagram: 09/11/16 0700 09/11/16 0700 Plan Plan: Nephrology attending: Patient was seen and examined along with the medicine resident Dr. Esposito. I agree with the findings above as detailed in the note. I would like to change his maintenance IV to half-normal saline at 125 mL from the next day or so. Obviously we need to continue the DDAVP as he appears to have a central diabetes insipidus. DORA ESPOSITO DO Sep 12, 2016 09:12 Ace Whatley DO Sep 12, 2016 13:16
[2016-09-12] MEDS: Thiamine Inj 200 MG in Dextrose 5% 50 ML IV SCH (09:30)
[2016-09-12] MEDS: AMANTADINE 10 MG/ML TUBE SCH (09:30)
[2016-09-12] MEDS ORDERED: DESMOPRESSIN 4 MCG/ML IV SCH (11:00)
--- NOTE | 2016-09-12 11:38 | PCM.PNMED ---
Subjective Date of Service Sep 12, 2016 Subjective Pt was febrile last night. Given Tylenol. Had MBS scheduled for this AM. Exam Vital Signs Vital Sign - Last Date Time Temp Pulse Resp B/P Pulse Ox O2 Delivery O2 Flow Rate FiO2 09/12/16 09:26 36.9 109 20 125/89 97 Room Air 09/07/16 12:30 2.00 30 Intake and Output 09/11/16 09/11/16 09/12/16 Cumulative From/Thru 15:00 23:00 07:00 08/23/16 05:20 - 09/12/16 06:30 Intake Total 4063 ml 1574 ml 53286 ml Output Total 5100 ml 2350 ml 38901 ml Balance -1037 ml -776 ml 330 ml Intake Oral 550 ml 560 ml IV Total 584 ml 67 ml 62909 ml Tube Feeding 1637 ml 907 ml 72734 ml Tube Irrigant 1292 ml 600 ml 7934 ml Output Urine Total 5100 ml 2150 ml 63199 ml Stool Total 200 ml 8790 ml Gastric Drainage Total 1070 ml Ultrafiltrate 4700 ml # Bowel Movements 11 Exam General: Spontaneous opening of eyes to nonverbal stimulus. Does track with eyes. HEENT: Normocephalic, atraumatic. +NGT w/ TFeeds. Neck: No jugular venous distension. Cardiovascular: Regular rate and rhythm with no murmurs, rubs, or gallops appreciated Pulmonary: Decreased lung sounds bilaterally. Normal respiratory effort with no use of accessory muscles. Abdomen: Bowel tones present. Soft, nontender, nondistended. No rigidity and no guarding. Extremities: No clubbing, cyanosis, edema Skin: Warm to palpation, no rash IVs and Medications Medications Reviewed: Medications were reviewed in detail Lab and Diagnostics Result Diagram: 09/11/16 0700 09/11/16 0700 Microbiology Blood cultures pending MRSA swab pending X-Rays, CTs and MRIs CT BRAIN WITHOUT CONTRAST IMPRESSION: No acute disease. Dictated by: Hemant Gallegos M.D. on 08/23/2016 CT BRAIN WITHOUT CONTRAST IMPRESSION: 1. Diffuse bilateral hypodensity of the globus pallidus. This is a new finding when compared with the study dated 08/23/16. Differential considerations include anoxic injury, carbon monoxide neurotoxicity, excessive alcohol ingestion, and methanol or ethylene glycol ingestion. Dictated by: Dinora Kang M.D. 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 Dictated by: Jacob Mosqueda M.D. on 08/28/2016 CT CHEST WITHOUT CONTRAST IMPRESSION: Small basal left pleural effusion is unchanged, with associated left lower lobe compressive atelectasis. Superimposed pneumonia therefore cannot be excluded. Dictated by: Binh Ochoa M.D. on 09/07/2016 at 13:47 US RENAL SONOGRAM IMPRESSION: No hydronephrosis. Right renal cyst. Dictated by: Shobha Vale M.D. on 08/24/2016 US ABDOMEN, LIMITED IMPRESSION: Cholelithiasis, without justin gallbladder wall thickening to suggest acute cholecystitis at this time. Dictated by: Binh Ochoa M.D. on 09/07/2016 MR ABDOMEN MRCP IMPRESSION: 1. Markedly limited study due to motion artifact. 2. Cholelithiasis without evidence of cholecystitis. 3. No biliary ductal dilatation or definite choledocholithiasis. 4. No peripancreatic edema to suggest pancreatitis an MRI. No discrete pseudocyst identified. Dictated by: Bruce Valadez M.D. on 09/08/2016 at 17:47 US ABDOMEN IMPRESSION: 1. Cholelithiasis. 2. Mild gallbladder wall thickening. Acute cholecystitis cannot be excluded. 3. Echogenic liver. Finding typically represents fatty infiltration; however, finding is nonspecific and correlation with clinical and laboratory findings is recommended to exclude other etiologies including hepatic cirrhosis. 4. Slightly echogenic right kidney suspicious for developing medical renal disease. Please correlate with clinical and laboratory data. Dictated by: Swathi Jimenes MD, PhD on 08/29/2016 US ABDOMEN, LIMITED IMPRESSION: Cholelithiasis, without justin gallbladder wall thickening to suggest acute cholecystitis at this time. Dictated by: Binh Ochoa M.D. on 09/07/2016 X-RAY CHEST ONE VIEW, PORTABLE IMPRESSION: No acute disease is seen a semiupright portable chest. Tubes are considered appropriate radiographically. Dictated by: Hemant Gallegos M.D. on 08/23/2016 X-RAY CHEST ONE VIEW, PORTABLE IMPRESSION: Support lines as above. Otherwise, no acute pulmonary process. Dictated by: Shobha Vale M.D. on 08/24/2016 X-RAY CHEST ONE VIEW, PORTABLE IMPRESSION: No acute cardiopulmonary disease process. Dictated by: Swathi Jimenes MD, PhD on 08/25/2016 X-RAY CHEST ONE VIEW, PORTABLE IMPRESSION: 1. Left basilar atelectasis. Otherwise lungs are clear. 2. ET and enteric tubes. Dictated by: Jacob Mosqueda M.D. on 08/27/2016 at 9:53 X-RAY CHEST ONE VIEW, PORTABLE IMPRESSION: Stable left basilar atelectasis and support lines. Dictated by: Jacob Mosqueda M.D. on 08/28/2016 at 7:54 Additional Diagnostics ABG DateTimeAnalyzed 10:20:00 -_ pH ____7.354 - 7.350 7.450 pCO2 ___31.5__ -mmHg 35.0 45.0 pO2 160 -mmHg 69.0 116 HCO3- ___17.1__ -mmol/L 22.0 26.0 FIO2 ___45.0__ -% PRVC 20 - PEEP ____8.0__ -cmH2O Assessment & Plan Santiago Ann is a 41 year old male with no known past medical history who came in unresponsive after being found with vomit around him, sedated and intubated for acute hypoxemic respiratory failure secondary to aspiration for 5 days and extubated on hospital day 6 following successful spontaneous breathing trial. He remains awake and severally limited in ability to move proximal/axial muscles. #Anoxic Brain Injury, present on admission, active Secondary to aspiration and intoxication. Patient has had large volume of vomit suctioned out in the ED. --Initial EEG shows evidence of slowing but no other abnormalities to suggest that the patient is having clinical seizures causing his symptoms. There is significant metabolic dysfunction. - Intubated on 08/23/16, Extubated on 08/28/16. Zosyn was given for 7 days earlier in the hospital course but was stopped per ID recommendation. - ICU, Infectious disease, Palliative care, neurology and nephrology consults -- tube feeds resumed 09/09. HANDLE ASSEMBLER/PT/OT as appropriate. - Palliative care is involved to help this unfortunate pt and his family, we appreciate their recommendations. - Neurology - per Dr. Guillaume, follow-up EEG, He feels that there might be some improvement in patient's status though he will never regain his previous functional status. Dr. guillaume met with the family and confirmed that fully recovery is not possible. -- Fevers, polyuria, thought to be due to central etiology #Fevers, ongoing, thought to be central, active. -- Fevers could be because of central etiology per neurology -- Blood cultures are so far negative -- LFTs and lipase are slowly improving. UA is negative -- Chest x-ray still looks to have aspiration pneumonia, patient is currently on ertapenem. Chest CT ordered on 09/07 that showed no changes from the CXR. - MRCP did not show evidence of Pancreatitis or Cholecystitis. - ID, Dr. Lopez following- Will continue ertapenem and micafungin through a 10 -day course, which will end the morning of September 11. Then stop antibiotics and observe. - Will get Blood Cultures Thursday as will have been off abx for 2 days. Can hold off abx if febrile unless other evidence of systemic infection. #Acute hypernatremia, present on admission, active. -- To be secondary to nephrogenic versus central diabetes insipidus -- Nephrology management as above -- Continue to follow nephrology recommendations - Nephrology following, Dr. Whatley- follow up recs. BMP daily. #Acute Kidney Injury, present on admission, improving Cr on admission at 3.52 and increasing after admission. Unknown history of kidney injury. - Nephrology (Drs. Haynes/Chacorta) currently following case. Hemodialysis done daily since 08/25/16 till 1-2 days ago. No longer an hemodialysis currently is catheter is removed - see above recs. #Acute Cholecystitis, resolved -- Patient is worsened white count 20.2 on 09/04, tender down to 18.7 on 09/05 continued fevers, due to acute cholecystitis based on HIDA scan and abdominal CT. Under HIDA scan- Nonvisualization of the gallbladder suggesting acute cholecystitis"), abdominal CT-small left pleural effusion with left lower lobe consolidation likely representing pneumonia. Cholelithiasis with probable cholecystitis due to the nonvisualization of the gallbladder on recent HIDA scan. -- Gen. surgery was consulted, Dr. Dash as intial thought of CCK. Upon follow up MRCP was negative for Acute Pancreatitis and Chronic cholecystitis. Resolved cholelithiasis w/o choledocholithiasis. Lipase has improved and is currently stable. No surgery indicated at this time given improvement. Will sign off at this time. -- TPN is discontinued on 09/06 AM as this is thought to be worsening his cholecystitis and pancreatitis. - 09/10 HANDLE ASSEMBLER requested MBS- initiall recs are for PEG. - Will arrange with IR for possible PEG Thursday per family request. #Metabolic Acidosis, present on admission, active Likely secondary to lactic acidosis and uremia - Monitor CMP: #Rhabdomyolysis, present on admission, [place] [address]. Likely secondary to being in one position for 9 hours. Patient has large erythematous regions at pressure points of sacrum and upper thorax with open wound at sacrum. - Wound care consult -- Follow-up total CK is ordered for 09/08= 177 wnl #Hyperkalemia, present on admission, resolved - Kayexalate via feeding tube is given per nephro on 09/07 -- Continue to monitor #Stage II ulcers in the buttock areas -- Patient has a left rather large areas of stage II ulcers on either side of his gluteal cleft, make sure to check them from time to time with the help of wound care. They did not look infected as of 09/06 #Alcohol dependence -Patient currently sedated no need to institute CIWA protocol at this time #Drug dependence -Patient is a known user of cocaine and ice -Per family, last known use is around 5 months ago. Acetaminophen for mild pain when necessary. Bowel regimen Senna and MiraLAX scheduled and PRN. Zofran when necessary for nausea and vomiting. SubQ heparin for now. SCDs in place. Social: Patient is an undocumented immigrant. However he may be eligible for Emergent Alien Inpatient resources. He may not have resources for outpatient care. Family does not seem to be understanding of his prognosis, is expecting that he would recover completely. We will continue discussions. Palliative care. On 09/07, physical therapy has seen the patient still recommends correction facility via BLS transfer. Please have social studies department chair give way [employer] hospice care number. Patient's could potentially call this number for any financial help she could receive possibly even if she is not interested in hospice services. Disposition: Likely here for > 2 midnights. Dependent upon anoxic brain injury. Patient is improving at there be other problem except the fevers GI Prophylaxis: Not indicated (Patient extubated) VTE Prophylaxis: Sub-Q Heparin (Unfractionated), SCDs VTE Mechanical Devices: Intermittant Pneumatic CD Resuscitation Status: CPR: Attempt Resuscitation ( is ADM) Lisandro Bolivar MD Sep 12, 2016 11:38
--- NOTE | 2016-09-12 13:18 | NUR ---
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 MD notes indicate no indication for hemodialysis at this time. Pt to undergo MBS today. MD requested TF be changed to a formula lower in fat on 09/08 from previous Nepro. Pt started TF of Jevity 1.5 on 09/09 and pt is currently at goal rate of 70 ML/hr. Nephrology continues to follow and manage fluids. K+ and Phos OK, Creatinine trending down. PMHx: ETOH abuse. DIET: NPO. NUTRITION SUPPORT: Jevity 1.5 at goal rate of 70 ML/hr providing 2415 kcals, 103 g protein LABS: Reviewed. Na 148, BUN 56, Cr 1.66, Glu 131, Alb 3.2, Phos 3.6, K+4.7, AST 98,ALT 145, Lipase 405, Amylase 256 MEDICATIONS: Reviewed. GI: FMS in place: 600 mL output (09/08) SKIN: Thoracic spine wound healed. L gluteal wound improving per wound note. ANTHROPOMETRICS: Current Wt: 85.7 kg. Admit wt: 95.1 kg. IBW: 72.7 kg ESTIMATED NEEDS (Renal, wounds, BMI) Calories: 3448-1926 kcal/day (22-25 kcal/kg BW) Protein: 85-110 g protein (1.2-1.5 g/kg BW IBW) Fluid: Approx. ~2600 mL (25mL/kg BW) but fluids per nephrology at this time. NUTRITION DIAGNOSIS: 1) Inadequate oral intake related to inability to consume sufficient energy due to cognition, as evidenced by NPO status - PERSISTS. 2) Increased nutrient needs related to increased needs for disease state as evidenced by JUWAN and current skin issues - PERSISTS. INTERVENTION: 1) Recommend continuing current TF at this time. 2.) Fluids per nephrology--300ml q 6hrs. 3.) MBS results. MONITOR/EVALUATE: Enteral feeding, labs, weights, GI/nutrition status. Follow per high nutrition risk guidelines.
--- NOTE | 2016-09-12 13:21 | PROG NOTE ---
[address] [address] PROGRESS NOTE PATIENT: SANDY SOSA : 1975 MR#: [id number] ADMIT: 08/23/2016 JOB ID: [id number] INFECTIOUS DISEASE FOLLOWUP: DATE: 09/12/2016 REASON FOR FOLLOWUP: Prolonged fevers likely due to anoxic brain injury. INTERVAL HISTORY: Yesterday, we stopped the patient's antibiotics. Recall that he has had about two weeks of sustained fevers which we believe are central in origin. He also had an elevated procalcitonin and high white count shortly after admission, which we thought were likely due to aspiration pneumonia. He received a prolonged course of broad-spectrum antibiotics which ended yesterday. He has now developed recrudescent fevers, and the question is whether or not these are infectious or not. The patient remains essentially unresponsive. This morning he does not respond to any stimuli from me and the nurse's report, the same result. His continues to be highly optimistic and tells us that at times he has been awake and answering questions and indeed I have seen him do that at least on one occasion, but most of the time he is simply unresponsive. At no time does he moves extremities nor does he have any ability to safely swallow anything. His also insisting today that we soon retry him on food by the oral route rather than the nasogastric feeding tube solutions he has been receiving. PHYSICAL EXAMINATION: Reveals an afebrile gentleman, temperature 36.9 right now but he did spike to 38.4 during the night and he feels warm at this moment. Pulse is currently 110, respiratory rate 20, blood pressure 125/89. He is saturating well on room air. As noted, he is unresponsive. He has an NG tube through which he is receiving enteral nutrition. His neck is without notable adenopathy or stiffness. His lungs are actually notable for some coarse rhonchi bilaterally. Cardiac tones: Regular rate and rhythm. Abdomen benign. No skin rash noted. LABORATORY DATA: Labs yesterday include a white count of 11,000, normal diff. Creatinine yesterday 1.61, today's creatinine is pending. LFTs have been modestly elevated, AST 98, ALT 145, lipase when last measured was 405 a couple of days ago. Urinalysis without white cells. QuantiFERON Gold and Fungitell came back negative. Many blood cultures are negative including cultures from the . IMPRESSION: An extremely unfortunate gentleman who suffered what appears to be an overwhelming anoxic brain injury. He is unresponsive much of the time, but when he is awake, he can answer questions with one or two words which seems at times to be appropriate. He is not able to move anything nor can he safely swallow anything. At this point, I think his fevers are likely central. Will need to keep him off antibiotics for a time as long as he does not develop shock or signs of overwhelming infection. As the days go by we should repeat the white count, lipase and LFTs as well as procalcitonin. RECOMMENDATIONS: 1. Continue to watch the patient off antibiotics. 2. I discussed this case in person with the hospitalist this morning. 3. Over the next couple days, we should obtain a CBC with diff, procalcitonin and two sets of blood cultures as we continue to observe this patient. 4. It is also reasonable to follow his LFTs on a periodic basis as well as his lipase.
--- NOTE | 2016-09-12 15:48 | NUR ---
Faxed face sheet and nutrition notes to [facility] per POST HOLE DIGGING MACHINE OPERATOR in order to get quotes for self-pa peg tube. updated POST HOLE DIGGING MACHINE OPERATOR.
[2016-09-12] MEDS: Acetaminophen 32.5 mg/mL 20 mL Liquid PO PRN (16:09)
--- NOTE | 2016-09-12 16:46 | DRSVH ---
PROCEDURE: X-RAY CHEST ONE VIEW, PORTABLE ([id number]) INDICATIONS: SOB TECHNIQUE: One view of the chest was acquired. COMPARISON: [facility], CT, CT CHEST WO CON, 09/07/2016, 13:28. [facility], CR, XR CHEST 1VW (PORTABLE), 09/02/2016, 15:33. FINDINGS: Surgical changes and devices: An NG tube is present, the tip of which is not visualized. Lungs and pleura: Pulmonary radiopacities are present at the left lung base. These appear similar in extent when compared with the prior chest CT dated 09/07/16. There may be a small left pleural effusio n. Right lung is clear. Mediastinum: Mediastinal contours appear normal. Heart size is normal. Bones and chest wall: No suspicious bony lesions. Overlying soft tissues appear unremarkable. IMPRESSION: Left basilar consolidation decreased in extent when compared with the prior chest film da gricel 09/02/16. Dictated by: Dinora Kang M.D. on 09/12/2016 at 16:43 Approved by: Dinora Kang M.D. on 09/12/2016 at 16:45
--- NOTE | 2016-09-12 17:24 | NUR ---
Social Work: Continued Discharge Planning/Multidisciplinary Rounds D: EMR reviewed. Pt is on day 20 of hospitalization for anoxic, brain injury. Pt discussed in multidisciplinary rounds. Pt and family had care conference yesterday. Medical team explained to family that pt will require 24 hour assistance for the rest of his life. OPTIONS REVIEWED THUS FAR: [facility] Swing Bed - Not an option at this time due to SNF level of care [place] - Referral sent 09/09 - awaiting response [facility] - 45 spots open, 1 year waiting list, emailed referral to [email or web address] - awaiting response Other options for discharge include 1) private pay SNF 2) private pay caregivers 3) private pay infusion services for PEG tube feeds [facility] Nurse faxed nutrition information to [facility] for private pay PEG tube costs. T/C from Juma at [facility]: $700 1st month, $600 each month after (1st month additional $100 for initial RN visit/assessment). This includes all supplies, pump, and nutrition (all inclusive). Juma will keep information on file. BLNACA to notify Jmua on family decision. A: Pt who is not independent at baseline, currently not capable of self care and anticipated to never be capable of self care in the future. Pt will require placement or 24/7 care. P: Pt's medical situation is complex. BLANCA faxed nutrition information for PEG tube to [facility] to determine private pay costs for tube feeds at home. BLANCA to reach out to new contact tomorrow - cbccmi-by-oyw is Marina Phillips who is to a cousin of pt. She can be reached at [phone]. BLANCA will continue to follow. JEFF Marquez
--- NOTE | 2016-09-12 18:32 | NUR ---
Barium Swallow Cancellation Barium swallow cancelled d/t patient inability to follow commands/swallow safely. Md stated his mentation will be re-evaluated on Thursday to see if study is appropriate. Spouse Stella hesitant but aware of plan, she's anxious for him to have swallow study. Explained it's unsafe at this point, spanish medical interpreter present to explain rationale. Jevity 1.5 continues to infuse @ 70ml/hr w/ 300ml water flushes q6h, 1/2 NS @ 125ml/hr, swabbing mouth with swabs, will occasionally aspirate when sucking water from sponge.
--- NOTE | 2016-09-12 21:00 | NUR ---
Desmopressin Ordered med nghia for 20:30 unavailable until ludwig. per Rx
[2016-09-13] MEDS: Heparin 5,000 Unit/mL Inj SUBQ SCH ×3 (00:43→17:00)
[2016-09-13 05:35] VITALS: PULSE 96
[2016-09-13 06:47] VITALS: BP 134/84; PULSE 100; RESP 20; O2SAT 96
[2016-09-13 08:30] VITALS: BP 128/86; PULSE 99; RESP 20; O2SAT 95
[2016-09-13] MEDS: Acetaminophen 32.5 mg/mL 20 mL Liquid PO PRN (08:38)
[2016-09-13] MEDS: Thiamine Inj 200 MG in Dextrose 5% 50 ML IV SCH (09:03)
[2016-09-13] MEDS: AMANTADINE 10 MG/ML TUBE SCH (09:05)
[2016-09-13 10:17] VITALS: PULSE 100
--- NOTE | 2016-09-13 11:36 | PCM.PNNEPH ---
Subjective Date of Service Sep 13, 2016 Subjective Patient's volume status has responded to ongoing DDAVP infusions. His intake and output the last 24 hours are 3780 9 AM and 4050 out with 1650 out today. His sodium is 148, potassium 4.6, chloride of 110, bicarbonate 20, BUN and creatinine were 56 and 1.42 respectively. Exam Vital Signs Vital Sign - Last Date Time Temp Pulse Resp B/P Pulse Ox O2 Delivery O2 Flow Rate FiO2 09/13/16 10:17 100 09/13/16 08:30 38.1 20 128/86 95 Room Air 09/07/16 12:30 2.00 30 Intake and Output 09/12/16 09/12/16 09/13/16 Cumulative From/Thru 15:00 23:00 07:00 08/23/16 05:20 - 09/13/16 06:50 Intake Total 2215 ml 3116 ml 08064 ml Output Total 1700 ml 1650 ml 01211 ml Balance 515 ml 1466 ml 2311 ml Intake Oral 560 ml IV Total 530 ml 1561 ml 64612 ml Tube Feeding 804 ml 955 ml 43551 ml Tube Irrigant 881 ml 600 ml 9415 ml Output Urine Total 1600 ml 1500 ml 54533 ml Stool Total 100 ml 150 ml 9040 ml Gastric Drainage Total 1070 ml Ultrafiltrate 4700 ml # Bowel Movements 11 Exam Neck is supple without adenopathy, thyromegaly, jugular venous distention. Lungs are clear to auscultation. Heart is regular and rhythmical with a soft systolic murmur. Abdomen is soft without any tenderness rebound guarding masses or hepatosplenomegaly. Extremities did not show any evidence of any clubbing cyanosis or edema. Skin turgor is good. Lab and Diagnostics Result Diagram: 09/11/16 0700 09/13/16 0600 Microbiology Blood cultures pending MRSA swab pending X-Rays, CTs and MRIs CT BRAIN WITHOUT CONTRAST IMPRESSION: No acute disease. Dictated by: Hemant Gallegos M.D. on 08/23/2016 CT BRAIN WITHOUT CONTRAST IMPRESSION: 1. Diffuse bilateral hypodensity of the globus pallidus. This is a new finding when compared with the study dated 08/23/16. Differential considerations include anoxic injury, carbon monoxide neurotoxicity, excessive alcohol ingestion, and methanol or ethylene glycol ingestion. Dictated by: Dinora Kang M.D. 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 Dictated by: Jacob Mosqueda M.D. on 08/28/2016 CT CHEST WITHOUT CONTRAST IMPRESSION: Small basal left pleural effusion is unchanged, with associated left lower lobe compressive atelectasis. Superimposed pneumonia therefore cannot be excluded. Dictated by: Binh Ochoa M.D. on 09/07/2016 at 13:47 US RENAL SONOGRAM IMPRESSION: No hydronephrosis. Right renal cyst. Dictated by: Shobha Vale M.D. on 08/24/2016 US ABDOMEN, LIMITED IMPRESSION: Cholelithiasis, without justin gallbladder wall thickening to suggest acute cholecystitis at this time. Dictated by: Binh Ochoa M.D. on 09/07/2016 MR ABDOMEN MRCP IMPRESSION: 1. Markedly limited study due to motion artifact. 2. Cholelithiasis without evidence of cholecystitis. 3. No biliary ductal dilatation or definite choledocholithiasis. 4. No peripancreatic edema to suggest pancreatitis an MRI. No discrete pseudocyst identified. Dictated by: Bruce Valadez M.D. on 09/08/2016 at 17:47 US ABDOMEN IMPRESSION: 1. Cholelithiasis. 2. Mild gallbladder wall thickening. Acute cholecystitis cannot be excluded. 3. Echogenic liver. Finding typically represents fatty infiltration; however, finding is nonspecific and correlation with clinical and laboratory findings is recommended to exclude other etiologies including hepatic cirrhosis. 4. Slightly echogenic right kidney suspicious for developing medical renal disease. Please correlate with clinical and laboratory data. Dictated by: Swathi Jimenes MD, PhD on 08/29/2016 US ABDOMEN, LIMITED IMPRESSION: Cholelithiasis, without justin gallbladder wall thickening to suggest acute cholecystitis at this time. Dictated by: Binh Ochoa M.D. on 09/07/2016 X-RAY CHEST ONE VIEW, PORTABLE IMPRESSION: No acute disease is seen a semiupright portable chest. Tubes are considered appropriate radiographically. Dictated by: Hemant Gallegos M.D. on 08/23/2016 X-RAY CHEST ONE VIEW, PORTABLE IMPRESSION: Support lines as above. Otherwise, no acute pulmonary process. Dictated by: Shobha Vale M.D. on 08/24/2016 X-RAY CHEST ONE VIEW, PORTABLE IMPRESSION: No acute cardiopulmonary disease process. Dictated by: Swathi Jimenes MD, PhD on 08/25/2016 X-RAY CHEST ONE VIEW, PORTABLE IMPRESSION: 1. Left basilar atelectasis. Otherwise lungs are clear. 2. ET and enteric tubes. Dictated by: Jacob Mosqueda M.D. on 08/27/2016 at 9:53 X-RAY CHEST ONE VIEW, PORTABLE IMPRESSION: Stable left basilar atelectasis and support lines. Dictated by: Jacob Mosqueda M.D. 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 Ace Whatley DO Sep 13, 2016 11:36
[2016-09-13 12:30] VITALS: BP 149/86; PULSE 94; RESP 20; O2SAT 98
--- NOTE | 2016-09-13 16:10 | PCM.PNMED ---
Subjective Date of Service Sep 13, 2016 Subjective Pt still spiking fevers. No change in Mental status. BP has been stable. Had family meeting w/ and family. She would like to be present during [facility] Thursday before deciding on PEG Tube. Exam Vital Signs Vital Sign - Last Date Time Temp Pulse Resp B/P Pulse Ox O2 Delivery O2 Flow Rate FiO2 09/13/16 12:30 37.0 94 20 149/86 98 Room Air 09/07/16 12:30 2.00 30 Intake and Output 09/12/16 09/12/16 09/13/16 Cumulative From/Thru 15:00 23:00 07:00 08/23/16 05:20 - 09/13/16 06:50 Intake Total 2215 ml 3116 ml 18436 ml Output Total 1700 ml 1650 ml 76839 ml Balance 515 ml 1466 ml 2311 ml Intake Oral 560 ml IV Total 530 ml 1561 ml 45903 ml Tube Feeding 804 ml 955 ml 95059 ml Tube Irrigant 881 ml 600 ml 9415 ml Output Urine Total 1600 ml 1500 ml 36882 ml Stool Total 100 ml 150 ml 9040 ml Gastric Drainage Total 1070 ml Ultrafiltrate 4700 ml # Bowel Movements 11 Exam General: Spontaneous opening of eyes to nonverbal stimulus. Does track with eyes. HEENT: Normocephalic, atraumatic. +NGT w/ TFeeds. Neck: No jugular venous distension. Cardiovascular: Regular rate and rhythm with no murmurs, rubs, or gallops appreciated Pulmonary: Decreased lung sounds bilaterally. Normal respiratory effort with no use of accessory muscles. Abdomen: Bowel tones present. Soft, nontender, nondistended. No rigidity and no guarding. Extremities: No clubbing, cyanosis, edema Skin: Warm to palpation, no rash IVs and Medications Medications Reviewed: Medications were reviewed in detail Lab and Diagnostics Result Diagram: 09/11/16 0700 09/13/16 0600 Microbiology Blood cultures pending MRSA swab pending X-Rays, CTs and MRIs CT BRAIN WITHOUT CONTRAST IMPRESSION: No acute disease. Dictated by: Hemant Gallegos M.D. on 08/23/2016 CT BRAIN WITHOUT CONTRAST IMPRESSION: 1. Diffuse bilateral hypodensity of the globus pallidus. This is a new finding when compared with the study dated 08/23/16. Differential considerations include anoxic injury, carbon monoxide neurotoxicity, excessive alcohol ingestion, and methanol or ethylene glycol ingestion. Dictated by: Dinora Kang M.D. 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 Dictated by: Jcaob Mosqueda M.D. on 08/28/2016 CT CHEST WITHOUT CONTRAST IMPRESSION: Small basal left pleural effusion is unchanged, with associated left lower lobe compressive atelectasis. Superimposed pneumonia therefore cannot be excluded. Dictated by: Binh Ochoa M.D. on 09/07/2016 at 13:47 US RENAL SONOGRAM IMPRESSION: No hydronephrosis. Right renal cyst. Dictated by: Shobha Vale M.D. on 08/24/2016 US ABDOMEN, LIMITED IMPRESSION: Cholelithiasis, without justin gallbladder wall thickening to suggest acute cholecystitis at this time. Dictated by: Binh Ochoa M.D. on 09/07/2016 MR ABDOMEN MRCP IMPRESSION: 1. Markedly limited study due to motion artifact. 2. Cholelithiasis without evidence of cholecystitis. 3. No biliary ductal dilatation or definite choledocholithiasis. 4. No peripancreatic edema to suggest pancreatitis an MRI. No discrete pseudocyst identified. Dictated by: Bruce Valadez M.D. on 09/08/2016 at 17:47 US ABDOMEN IMPRESSION: 1. Cholelithiasis. 2. Mild gallbladder wall thickening. Acute cholecystitis cannot be excluded. 3. Echogenic liver. Finding typically represents fatty infiltration; however, finding is nonspecific and correlation with clinical and laboratory findings is recommended to exclude other etiologies including hepatic cirrhosis. 4. Slightly echogenic right kidney suspicious for developing medical renal disease. Please correlate with clinical and laboratory data. Dictated by: Swathi Jimenes MD, PhD on 08/29/2016 US ABDOMEN, LIMITED IMPRESSION: Cholelithiasis, without justin gallbladder wall thickening to suggest acute cholecystitis at this time. Dictated by: Binh Ochoa M.D. on 09/07/2016 X-RAY CHEST ONE VIEW, PORTABLE IMPRESSION: No acute disease is seen a semiupright portable chest. Tubes are considered appropriate radiographically. Dictated by: Hemant Gallegos M.D. on 08/23/2016 X-RAY CHEST ONE VIEW, PORTABLE IMPRESSION: Support lines as above. Otherwise, no acute pulmonary process. Dictated by: Shobha Vale M.D. on 08/24/2016 X-RAY CHEST ONE VIEW, PORTABLE IMPRESSION: No acute cardiopulmonary disease process. Dictated by: Swathi Jimenes MD, PhD on 08/25/2016 X-RAY CHEST ONE VIEW, PORTABLE IMPRESSION: 1. Left basilar atelectasis. Otherwise lungs are clear. 2. ET and enteric tubes. Dictated by: Jacob Mosqueda M.D. on 08/27/2016 at 9:53 X-RAY CHEST ONE VIEW, PORTABLE IMPRESSION: Stable left basilar atelectasis and support lines. Dictated by: Jacob Mosqueda M.D. on 08/28/2016 at 7:54 Additional Diagnostics ABG DateTimeAnalyzed 10:20:00 -_ pH ____7.354 - 7.350 7.450 pCO2 ___31.5__ -mmHg 35.0 45.0 pO2 160 -mmHg 69.0 116 HCO3- ___17.1__ -mmol/L 22.0 26.0 FIO2 ___45.0__ -% PRVC 20 - PEEP ____8.0__ -cmH2O Assessment & Plan Santiago Seth is a 41 year old male with no known past medical history who came in unresponsive after being found with vomit around him, sedated and intubated for acute hypoxemic respiratory failure secondary to aspiration for 5 days and extubated on hospital day 6 following successful spontaneous breathing trial. He remains awake and severally limited in ability to move proximal/axial muscles. #Anoxic Brain Injury, present on admission, active Secondary to aspiration and intoxication. Patient had large volume of vomit suctioned out in the ED. --Initial EEG shows evidence of slowing but no other abnormalities to suggest that the patient is having clinical seizures causing his symptoms. There is significant metabolic dysfunction. - Intubated on 08/23/16, Extubated on 08/28/16. Zosyn was given for 7 days earlier in the hospital course but was stopped per ID recommendation. - ICU, Infectious disease, Palliative care, neurology and nephrology consults -- tube feeds resumed 09/09. CERTIFIED NURSING ASSISTANT INSTRUCTOR/PT/OT as appropriate. - Palliative care is involved to help this unfortunate pt and his family, we appreciate their recommendations. - Neurology - per Dr. Guillaume, follow-up EEG, He feels that there might be some improvement in patient's status though he will never regain his previous functional status. Dr. guillaume met with the family and confirmed that full recovery is not possible. -- Fevers, polyuria, thought to be due to central etiology #Fevers, ongoing, thought to be central, active. -- Fevers likely due to central etiology per neurology -- Blood cultures are so far negative -- LFTs and lipase are slowly improving. UA is negative -- Chest x-ray still looks to have aspiration pneumonia, pt completed course ertapenem. Chest CT ordered on 09/07 that showed no changes from the CXR. - MRCP did not show further evidence of Pancreatitis or Cholecystitis. - ID, Dr. Lopez following- Will continue ertapenem and micafungin through a 10 -day course, which will ended September 11. Stopped antibiotics and observed. - Will get Blood Cultures Thursday as will have been off abx for 2 days. Can hold off abx if febrile unless other evidence of systemic infection including hypotension. #Acute hypernatremia, present on admission, active. -- To be secondary to nephrogenic versus central diabetes insipidus -- Nephrology management as above -- Continue to follow nephrology recommendations - Nephrology following, Dr. Whatley- follow up recs. BMP daily. #Acute Kidney Injury, present on admission, improving Cr on admission at 3.52 and increasing after admission. Unknown history of kidney injury. - Nephrology (Drs. Haynes/Chacorta) currently following case. Hemodialysis done daily since 08/25/16 till 1-2 days ago. No longer an hemodialysis currently is catheter is removed - see above recs. #Acute Cholecystitis, resolved -- Patient is worsened white count 20.2 on 09/04, tender down to 18.7 on 09/05 continued fevers, due to acute cholecystitis based on HIDA scan and abdominal CT. Under HIDA scan- Nonvisualization of the gallbladder suggesting acute cholecystitis"), abdominal CT-small left pleural effusion with left lower lobe consolidation likely representing pneumonia. Cholelithiasis with probable cholecystitis due to the nonvisualization of the gallbladder on recent HIDA scan. -- Gen. surgery was consulted, Dr. Dash as intial thought of CCK. Upon follow up MRCP was negative for Acute Pancreatitis and Chronic cholecystitis. Resolved cholelithiasis w/o choledocholithiasis. Lipase has improved and is currently stable. No surgery indicated at this time given improvement. Will sign off at this time. -- TPN is discontinued on 09/06 AM as this is thought to be worsening his cholecystitis and pancreatitis. - 09/10 CERTIFIED NURSING ASSISTANT INSTRUCTOR requested MBS- initiall recs are for PEG. - Will arrange with IR for possible PEG Thursday per family request. #Metabolic Acidosis, present on admission, active Likely secondary to lactic acidosis and uremia - Monitor CMP: #Rhabdomyolysis, present on admission, [place] [id number]. Likely secondary to being in one position for 9 hours. Patient has large erythematous regions at pressure points of sacrum and upper thorax with open wound at sacrum. - Wound care consult -- Follow-up total CK is ordered for 09/08= 177 wnl #Hyperkalemia, present on admission, resolved - Kayexalate via feeding tube is given per nephro on 09/07 -- Continue to monitor #Stage II ulcers in the buttock areas -- Patient has a left rather large areas of stage II ulcers on either side of his gluteal cleft, make sure to check them from time to time with the help of wound care. They did not look infected as of 09/06 #Alcohol dependence -Patient currently sedated no need to institute CIWA protocol at this time #Drug dependence -Patient is a known user of cocaine and ice -Per family, last known use is around 5 months ago. Acetaminophen for mild pain when necessary. Bowel regimen Senna and MiraLAX scheduled and PRN. Zofran when necessary for nausea and vomiting. SubQ heparin for now. SCDs in place. Social: Patient is an undocumented immigrant. However he may be eligible for Emergent Alien Inpatient resources. He may not have resources for outpatient care. Family does not seem to be understanding of his prognosis, is expecting that he would recover completely. We will continue discussions. Palliative care. On 09/07, physical therapy has seen the patient still recommends nursing home facility via BLS transfer. Please have social work program coordinator give way [employer] hospice care number. Patient's could potentially call this number for any financial help she could receive possibly even if she is not interested in hospice services. Disposition: Likely here for > 2 midnights. Dependent upon anoxic brain injury. Patient is improving at there be other problem except the fevers Pain Evaluation: Adequate Pain Control GI Prophylaxis: Not indicated (Patient extubated) VTE Prophylaxis: Sub-Q Heparin (Unfractionated), SCDs VTE Mechanical Devices: Intermittant Pneumatic CD Resuscitation Status: CPR: Attempt Resuscitation ( is ADM) Lisandro Bolivar MD Sep 13, 2016 16:10
--- NOTE | 2016-09-13 17:00 | NUR ---
Status Pt continues to be turned q2h, branham, FMS and dobhoff in place w/o complications. HOB >[address] Foam boots in place. VSS. Per MD no tylenol for temp less than 38 centigrade. Family updated by MD re: plan of care for 09/14 and 09/15. Will continue to monitor.
[2016-09-13 17:30] VITALS: BP 132/85; PULSE 95; RESP 12; O2SAT 97
[2016-09-14] VITALS (7 sets, daily range): BP systolic 119–144; BP diastolic 75–89; PULSE 92–105; RESP 16–20; O2SAT 95–100
[2016-09-14] MEDS: Heparin 5,000 Unit/mL Inj SUBQ SCH ×3 (01:26→16:14)
--- NOTE | 2016-09-14 05:53 | NUR ---
Shift note/BC's No changes in condition/care TQ2 ,TF/flush BC drawn thia am
[2016-09-14 05:55] LABS: BASOPHILS % (AUTO) 0.7 % (0-3); EOSINOPHILS % (AUTO) 3.5 % (0-5); MONOCYTES % (AUTO) 9.5 % (4-12); Mean Corpuscular Hemoglobin 28.9 pg (27.0-35.0); Mean Corpuscular Volume 92.7 fL (81-100); Platelet Count 169 bil/L (150-400)
[2016-09-14] MEDS: Thiamine Inj 200 MG in Dextrose 5% 50 ML IV SCH (08:07)
[2016-09-14] MEDS: AMANTADINE 10 MG/ML TUBE SCH (09:04)
--- NOTE | 2016-09-14 13:46 | PCM.PNNEPH ---
Subjective Date of Service Sep 14, 2016 Subjective Doing about the same at the bedside. on DDAVP for possible CDI. UOP decreased. I/O: 7074/2750 Kidney function continue to improve. Exam Vital Signs Vital Sign - Last Date Time Temp Pulse Resp B/P Pulse Ox O2 Delivery O2 Flow Rate FiO2 09/14/16 09:51 100 09/14/16 08:54 37.3 16 144/89 97 Room Air Intake and Output 09/13/16 09/13/16 09/14/16 Cumulative From/Thru 15:00 23:00 07:00 08/23/16 05:20 - 09/14/16 06:26 Intake Total 3958 ml 2997 ml 23563 ml Output Total 1100 ml 2100 ml 64096 ml Balance 2858 ml 897 ml 6066 ml Intake Oral 560 ml IV Total 1297 ml 1677 ml 78174 ml Tube Feeding 1736 ml 1020 ml 80211 ml Tube Irrigant 925 ml 300 ml 45166 ml Output Urine Total 1000 ml 2000 ml 36906 ml Stool Total 100 ml 100 ml 9240 ml Gastric Drainage Total 1070 ml Ultrafiltrate 4700 ml # Bowel Movements 11 Exam GENERAL:awake, nonverbal. HEENT: Head is normocephalic and atraumatic. Mouth is well hydrated and without lesions. NG tube in place. NECK: Supple, no elevation of JVD, No carotid bruits. No lymphadenopathy or thyromegaly. LUNGS: Clear to auscultation, equal breath sounds bilaterally, no wheezing, no rhonchi no rales. HEART: Normal S1/S2, Regular rate and rhythm. ABDOMEN: Soft, nontender, and nondistended. Positive bowel sounds. No hepatosplenomegaly was noted. EXTREMITIES: Without any cyanosis, clubbing, rash, lesions or edema. SKIN: No ulceration or induration present. Lab and Diagnostics Result Diagram: 09/14/16 0530 09/14/16 0530 Microbiology Blood cultures pending MRSA swab pending X-Rays, CTs and MRIs CT BRAIN WITHOUT CONTRAST IMPRESSION: No acute disease. Dictated by: Hemant Gallegos M.D. on 08/23/2016 CT BRAIN WITHOUT CONTRAST IMPRESSION: 1. Diffuse bilateral hypodensity of the globus pallidus. This is a new finding when compared with the study dated 08/23/16. Differential considerations include anoxic injury, carbon monoxide neurotoxicity, excessive alcohol ingestion, and methanol or ethylene glycol ingestion. Dictated by: Dinora Kang M.D. 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 Dictated by: Jacob Mosqueda M.D. on 08/28/2016 CT CHEST WITHOUT CONTRAST IMPRESSION: Small basal left pleural effusion is unchanged, with associated left lower lobe compressive atelectasis. Superimposed pneumonia therefore cannot be excluded. Dictated by: Binh Ochoa M.D. on 09/07/2016 at 13:47 US RENAL SONOGRAM IMPRESSION: No hydronephrosis. Right renal cyst. Dictated by: Shobha Vale M.D. on 08/24/2016 US ABDOMEN, LIMITED IMPRESSION: Cholelithiasis, without justin gallbladder wall thickening to suggest acute cholecystitis at this time. Dictated by: Binh Ochoa M.D. on 09/07/2016 MR ABDOMEN MRCP IMPRESSION: 1. Markedly limited study due to motion artifact. 2. Cholelithiasis without evidence of cholecystitis. 3. No biliary ductal dilatation or definite choledocholithiasis. 4. No peripancreatic edema to suggest pancreatitis an MRI. No discrete pseudocyst identified. Dictated by: Bruce Valadez M.D. on 09/08/2016 at 17:47 US ABDOMEN IMPRESSION: 1. Cholelithiasis. 2. Mild gallbladder wall thickening. Acute cholecystitis cannot be excluded. 3. Echogenic liver. Finding typically represents fatty infiltration; however, finding is nonspecific and correlation with clinical and laboratory findings is recommended to exclude other etiologies including hepatic cirrhosis. 4. Slightly echogenic right kidney suspicious for developing medical renal disease. Please correlate with clinical and laboratory data. Dictated by: Swathi Jimenes MD, PhD on 08/29/2016 US ABDOMEN, LIMITED IMPRESSION: Cholelithiasis, without justin gallbladder wall thickening to suggest acute cholecystitis at this time. Dictated by: Binh Ochoa M.D. on 09/07/2016 X-RAY CHEST ONE VIEW, PORTABLE IMPRESSION: No acute disease is seen a semiupright portable chest. Tubes are considered appropriate radiographically. Dictated by: Hemant Gallegos M.D. on 08/23/2016 X-RAY CHEST ONE VIEW, PORTABLE IMPRESSION: Support lines as above. Otherwise, no acute pulmonary process. Dictated by: Shobha Vale M.D. on 08/24/2016 X-RAY CHEST ONE VIEW, PORTABLE IMPRESSION: No acute cardiopulmonary disease process. Dictated by: Swathi Jimenes MD, PhD on 08/25/2016 X-RAY CHEST ONE VIEW, PORTABLE IMPRESSION: 1. Left basilar atelectasis. Otherwise lungs are clear. 2. ET and enteric tubes. Dictated by: Jacob Mosqueda M.D. on 08/27/2016 at 9:53 X-RAY CHEST ONE VIEW, PORTABLE IMPRESSION: Stable left basilar atelectasis and support lines. Dictated by: Jacob Mosqueda M.D. on 08/28/2016 at 7:54 Additional Diagnostics ABG DateTimeAnalyzed 10:20:00 -_ pH ____7.354 - 7.350 7.450 pCO2 ___31.5__ -mmHg 35.0 45.0 pO2 160 -mmHg 69.0 116 HCO3- ___17.1__ -mmol/L 22.0 26.0 FIO2 ___45.0__ -% PRVC 20 - PEEP ____8.0__ -cmH2O Plan Impression 1. JUWAN due to ATN, improving. 2. Polyuria - suspected CDI vs NDI in the setting of recovery phase of ATN. 3. Central fever. 4. Anoxic brain injury. Plan: Continue 1/2 NS 125 ml/hr. Free water flushes 300 ml q 4 hr. Continue DDAVP. Repeat Na in pm. Order urine osm and serum osm. Alejandro Tapia MD Sep 14, 2016 13:46
--- NOTE | 2016-09-14 14:42 | PCM.PNMED ---
Subjective Date of Service Sep 14, 2016 Subjective No overnight events. No improvement in neurological status. Exam Vital Signs Vital Sign - Last Date Time Temp Pulse Resp B/P Pulse Ox O2 Delivery O2 Flow Rate FiO2 09/14/16 09:51 100 09/14/16 08:54 37.3 16 144/89 97 Room Air Intake and Output 09/13/16 09/13/16 09/14/16 Cumulative From/Thru 15:00 23:00 07:00 08/23/16 05:20 - 09/14/16 06:26 Intake Total 3958 ml 2997 ml 36381 ml Output Total 1100 ml 2100 ml 03931 ml Balance 2858 ml 897 ml 6066 ml Intake Oral 560 ml IV Total 1297 ml 1677 ml 46388 ml Tube Feeding 1736 ml 1020 ml 44353 ml Tube Irrigant 925 ml 300 ml 93612 ml Output Urine Total 1000 ml 2000 ml 00978 ml Stool Total 100 ml 100 ml 9240 ml Gastric Drainage Total 1070 ml Ultrafiltrate 4700 ml # Bowel Movements 11 Exam General: Spontaneous opening of eyes to nonverbal stimulus. Does track with eyes. HEENT: Normocephalic, atraumatic. +NGT w/ TFeeds. Neck: No jugular venous distension. Cardiovascular: Regular rate and rhythm with no murmurs, rubs, or gallops appreciated Pulmonary: Decreased lung sounds bilaterally. Normal respiratory effort with no use of accessory muscles. Abdomen: Bowel tones present. Soft, nontender, nondistended. No rigidity and no guarding. Extremities: No clubbing, cyanosis, edema Skin: Warm to palpation, no rash IVs and Medications Medications Reviewed: Medications were reviewed in detail Lab and Diagnostics Result Diagram: 09/14/16 0530 09/14/16 0530 Microbiology Blood cultures pending MRSA swab pending X-Rays, CTs and MRIs CT BRAIN WITHOUT CONTRAST IMPRESSION: No acute disease. Dictated by: Hemant Gallegos M.D. on 08/23/2016 CT BRAIN WITHOUT CONTRAST IMPRESSION: 1. Diffuse bilateral hypodensity of the globus pallidus. This is a new finding when compared with the study dated 08/23/16. Differential considerations include anoxic injury, carbon monoxide neurotoxicity, excessive alcohol ingestion, and methanol or ethylene glycol ingestion. Dictated by: Dinora Kagn M.D. 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 Dictated by: Jacob Mosqueda M.D. on 08/28/2016 CT CHEST WITHOUT CONTRAST IMPRESSION: Small basal left pleural effusion is unchanged, with associated left lower lobe compressive atelectasis. Superimposed pneumonia therefore cannot be excluded. Dictated by: Binh Ochoa M.D. on 09/07/2016 at 13:47 US RENAL SONOGRAM IMPRESSION: No hydronephrosis. Right renal cyst. Dictated by: Shobha Vale M.D. on 08/24/2016 US ABDOMEN, LIMITED IMPRESSION: Cholelithiasis, without justin gallbladder wall thickening to suggest acute cholecystitis at this time. Dictated by: Binh Ochoa M.D. on 09/07/2016 MR ABDOMEN MRCP IMPRESSION: 1. Markedly limited study due to motion artifact. 2. Cholelithiasis without evidence of cholecystitis. 3. No biliary ductal dilatation or definite choledocholithiasis. 4. No peripancreatic edema to suggest pancreatitis an MRI. No discrete pseudocyst identified. Dictated by: Bruce Valadez M.D. on 09/08/2016 at 17:47 US ABDOMEN IMPRESSION: 1. Cholelithiasis. 2. Mild gallbladder wall thickening. Acute cholecystitis cannot be excluded. 3. Echogenic liver. Finding typically represents fatty infiltration; however, finding is nonspecific and correlation with clinical and laboratory findings is recommended to exclude other etiologies including hepatic cirrhosis. 4. Slightly echogenic right kidney suspicious for developing medical renal disease. Please correlate with clinical and laboratory data. Dictated by: Swathi Jimenes MD, PhD on 08/29/2016 US ABDOMEN, LIMITED IMPRESSION: Cholelithiasis, without justin gallbladder wall thickening to suggest acute cholecystitis at this time. Dictated by: Binh Ochoa M.D. on 09/07/2016 X-RAY CHEST ONE VIEW, PORTABLE IMPRESSION: No acute disease is seen a semiupright portable chest. Tubes are considered appropriate radiographically. Dictated by: Hemant Gallegos M.D. on 08/23/2016 X-RAY CHEST ONE VIEW, PORTABLE IMPRESSION: Support lines as above. Otherwise, no acute pulmonary process. Dictated by: Shobha Vale M.D. on 08/24/2016 X-RAY CHEST ONE VIEW, PORTABLE IMPRESSION: No acute cardiopulmonary disease process. Dictated by: Swathi Jimenes MD, PhD on 08/25/2016 X-RAY CHEST ONE VIEW, PORTABLE IMPRESSION: 1. Left basilar atelectasis. Otherwise lungs are clear. 2. ET and enteric tubes. Dictated by: Jacob Mosqueda M.D. on 08/27/2016 at 9:53 X-RAY CHEST ONE VIEW, PORTABLE IMPRESSION: Stable left basilar atelectasis and support lines. Dictated by: Jacob Mosqueda M.D. on 08/28/2016 at 7:54 Additional Diagnostics ABG DateTimeAnalyzed 10:20:00 -_ pH ____7.354 - 7.350 7.450 pCO2 ___31.5__ -mmHg 35.0 45.0 pO2 160 -mmHg 69.0 116 HCO3- ___17.1__ -mmol/L 22.0 26.0 FIO2 ___45.0__ -% PRVC 20 - PEEP ____8.0__ -cmH2O Assessment & Plan Santiago Ann is a 41 year old male with no known past medical history who came in unresponsive after being found with vomit around him, sedated and intubated for acute hypoxemic respiratory failure secondary to aspiration for 5 days and extubated on hospital day 6 following successful spontaneous breathing trial. He remains awake and severally limited in ability to move proximal/axial muscles. #Anoxic Brain Injury, present on admission, active Secondary to aspiration and intoxication. Patient had large volume of vomit suctioned out in the ED. --Initial EEG shows evidence of slowing but no other abnormalities to suggest that the patient is having clinical seizures causing his symptoms. There is significant metabolic dysfunction. - Intubated on 08/23/16, Extubated on 08/28/16. Zosyn was given for 7 days earlier in the hospital course but was stopped per ID recommendation. - ICU, Infectious disease, Palliative care, neurology and nephrology consults - Palliative care is involved to help this unfortunate pt and his family, we appreciate their recommendations. - Neurology - per Dr. Guillaume, follow-up EEG, He feels that there might be some improvement in patient's status though he will never regain his previous functional status. Dr. guillaume met with the family and confirmed that full recovery is not possible. 09/14- After Family meeting on 09/13, has requested MBS attempted again and would like to be present. I Discussed this with STUDENT ASSISTANCE COUNSELOR on Thursday 09/14 and plan to do MBS after lunch once Business Quality Assurance Analyst and available. - If MBS fail, will need to decide on PEG. - Palliative was following but signed off, will need to reconsult if PEG is decision. #Fevers, ongoing, thought to be central, active. -- Fevers likely due to central etiology per neurology. Initially though due to Pancreatitis or Cholecystitis. UA is negative -- Chest x-ray still looks to have aspiration pneumonia, pt completed course ertapenem. Chest CT ordered on 09/07 that showed no changes from the CXR. - MRCP did not show further evidence of Pancreatitis or Cholecystitis. - -Blood cultures are so far negative. LFTs and lipase are slowly improving. - ID, Dr. Lopez following- Will continue ertapenem and micafungin through a 10 -day course, which will ended September 11. Stopped antibiotics and observed. - Blood Cultures taken on 09.14 as off abx for 2 days. Can hold off abx if febrile unless other evidence of systemic infection including hypotension. #Acute hypernatremia, present on admission, active. -- To be secondary to nephrogenic versus central diabetes insipidus -- Nephrology management as above -- Continue to follow nephrology recommendations - Nephrology following, Dr. Whatley- follow up recs. BMP daily. #Acute Kidney Injury, present on admission, improving Cr on admission at 3.52 and increasing after admission. Unknown history of kidney injury. - Nephrology (Drs. Haynes/Chacorta) currently following case. Hemodialysis done daily since 08/25/16 till 1-2 days ago. No longer an hemodialysis, catheter rremoved - see above recs. #Acute Cholecystitis, resolved --acute cholecystitis based on HIDA scan and abdominal CT. -- Gen. surgery was consulted, Dr. Dash as intial thought of CCK. Upon follow up MRCP was negative for Acute Pancreatitis and Chronic cholecystitis. Resolved cholelithiasis w/o choledocholithiasis.No surgery indicated at this time given improvement. While lipase elevated, is stable. Signed off. -- TPN d/c 09/06 AM as this is thought to be worsening his cholecystitis and pancreatitis. #Metabolic Acidosis, present on admission, active Likely secondary to lactic acidosis and uremia - Monitor CMP: #Rhabdomyolysis, present on admission, [place] [address]. Likely secondary to being in one position for 9 hours. Patient has large erythematous regions at pressure points of sacrum and upper thorax with open wound at sacrum. - Wound care consult -- Follow-up total CK is ordered for 09/08= 177 wnl #Hyperkalemia, present on admission, resolved - Kayexalate via feeding tube is given per nephro on 09/07 -- Continue to monitor #Stage II ulcers in the buttock areas -- Patient has a left rather large areas of stage II ulcers on either side of his gluteal cleft, make sure to check them from time to time with the help of wound care. They did not look infected as of 09/06 #Alcohol dependence -Patient currently sedated no need to institute CIWA protocol at this time #Drug dependence -Patient is a known user of cocaine and ice -Per family, last known use is around 5 months ago. Acetaminophen for mild pain when necessary. Bowel regimen Senna and MiraLAX scheduled and PRN. Zofran when necessary for nausea and vomiting. SubQ heparin for now. SCDs in place. Social: Patient is an undocumented immigrant. However he may be eligible for Emergent Alien Inpatient resources. He may not have resources for outpatient care. Family does not seem to be understanding of his prognosis, is expecting that he would recover completely. We will continue discussions. Palliative care. On 09/07, physical therapy has seen the patient still recommends shelter facility via BLS transfer. Please have social worker clinical give way [employer] [facility] hospice care number. Patient's could potentially call this number for any financial help she could receive possibly even if she is not interested in hospice services. Disposition: Likely here for > 2 midnights. Dependent upon anoxic brain injury. Patient is improving at there be other problem except the fevers GI Prophylaxis: Not indicated (Patient extubated) VTE Prophylaxis: Sub-Q Heparin (Unfractionated), SCDs VTE Mechanical Devices: Intermittant Pneumatic CD Resuscitation Status: CPR: Attempt Resuscitation ( is ADM) Lisandro Bolivar MD Sep 14, 2016 14:42
--- NOTE | 2016-09-14 15:21 | NUR ---
Tube feed Tube feed free water flushed increased to Q4H per nephrology instructions. Volume remains at 300mls. Tubing changed at 1100 today.
--- NOTE | 2016-09-14 17:58 | NUR ---
Social Work: Continued Discharge Planning/Multidisciplinary Rounds D: EMR reviewed. Pt is on day 22 of hospitalization for anoxic, brain injury. Pt discussed in multidisciplinary rounds. Pt and family had care conference yesterday with MD. Pt's spouse requested to be present for Barium Swallow - spouse wants to see actual results. MD stated if pt passes barium swallow, pt will not need a PEG tube. If pt fails, pt will need a PEG tube. Per MD, spouse wants to see results before deciding if she is willing to have PEG tube placed. MD updated SW - MD consulted with provider doing barium swallow and all agreeable to allow spouse to witness test. MD requested SW hold off on meeting with family regarding care plan until barium swallow is completed. OPTIONS REVIEWED THUS FAR: [facility] Swing Bed - Not an option at this time due to SNF level of care [facility] - Referral sent 09/09 - awaiting response [facility] - 45 spots open, 1 year waiting list, emailed referral to [email or web address] - awaiting response Other options for discharge include 1) private pay SNF 2) private pay caregivers 3) private pay infusion services for PEG tube feeds Missionary Coordinator faxed nutrition information to [facility] for private pay PEG tube costs. T/C from Juma at [facility]: $700 1st month, $600 each month after (1st month additional $100 for initial RN visit/assessment). This includes all supplies, pump, and nutrition (all inclusive). Juma will keep information on file. BLANCA to notify Juma on family decision. A: Pt who is not independent at baseline, currently not capable of self care and anticipated to never be capable of self care in the future. Pt will require placement or 24/7 care. P: Pt's medical situation is complex. BLANCA faxed nutrition information for PEG tube to [facility] to determine private pay costs for tube feeds at home. Family requested BLANCA meeting regarding options once barium swallow test is complete. SW will follow and await test results. SW to consult with MD regarding options. MD to reassign Palliative - Palliative cleared pt but MD ordered new consult. BLANCA will continue to follow. JEFF Marquez
[2016-09-14] MEDS: SODIUM CHLORIDE 0.9% IV SCH (21:50)
[2016-09-14] MEDS: DESMOPRESSIN IV SCH (21:50)
[2016-09-15] VITALS (8 sets, daily range): BP systolic 119–133; BP diastolic 73–88; PULSE 88–104; RESP 18; O2SAT 95–99
[2016-09-15] MEDS: Heparin 5,000 Unit/mL Inj SUBQ SCH ×3 (00:16→17:19)
--- NOTE | 2016-09-15 00:43 | NUR ---
Pt Room Change Due to oxygen leaking from wall, pt was moved to Room [facility]-1 at approximately 2200.
[2016-09-15] MEDS ORDERED: 0.9% Sodium Chloride 100 ML ONE (08:56)
[2016-09-15] MEDS: Thiamine Inj 200 MG in Dextrose 5% 50 ML IV SCH (09:01)
[2016-09-15] MEDS: DESMOPRESSIN IV SCH ×2 (09:59→21:40)
[2016-09-15] MEDS: SODIUM CHLORIDE 0.9% IV SCH ×2 (09:59→21:40)
[2016-09-15] MEDS: AMANTADINE 10 MG/ML TUBE SCH (09:59)
--- NOTE | 2016-09-15 11:25 | PROG NOTE ---
[address] [address] PROGRESS NOTE PATIENT: SANDY SOSA : 1975 MR#: [id number] ADMIT: 08/23/2016 JOB ID: [id number] DATE: 09/15/2016 REASON FOR FOLLOWUP: Persistent fever in a patient with severe anoxic brain injury. INTERVAL HISTORY: Recall that we stopped his antibiotics now several days ago. After we completed a course of therapy for what was thought to be an aspiration pneumonia in the face of anoxic brain injury. The patient's mental status continues to be profoundly abnormal. Now and then during the day the patient is awake for short periods and can answer questions by mumbling one or two words and sometimes these answers are in fact appropriate. Unfortunately most of the time he is somnolent and basically unarousable and is unable really to move any of his extremities. The case was discussed with his at the bedside. She got the patient to briefly open his eyes, but he not would say anything and then immediately went back into a sleep-like state. He does not move anything even when asked by her. PHYSICAL EXAMINATION: Temperature 37 degrees. His last temperature over 38 was 38.1 on the morning of September 13 or 48 hours ago. His pulse currently ranging between 85 and 105. Respiratory rate 18, blood pressure 133/77. He is saturating well on room air. As noted, the patient does not respond other than he did open his eyes when prodded by his , but did not seem to interact in any way. Eyes without scleral icterus. Oral cavity cannot be examined actually, but his lips are without change. No herpetic lesions. The feeding tube is present in the nose. Lungs are relatively clear. Cardiac tones without murmur. Abdomen is soft and nontender. No peripheral edema. The patient does not move his extremities and they seem rather flaccid. LABORATORY STUDIES: Include white count 11,800, normal diff. Creatinine 1.0 which is steadily improving. Recall that it started off at levels approaching 8.5. It is now down to 1. No other recent labs of great interest. Micro studies include many, many negative blood cultures including some done September 14 for unclear reasons. We have many, probably more than 20, blood cultures and many of these are fungal blood cultures and they were all negative. A chest x-ray, done on September 12 showed left basilar consolidation which is decreased. IMPRESSION: I see no evidence for infection at this point. This patient has suffered a very severe anoxic brain injury and it seems unlikely that much significant improvement will happen now that he is in his 24th in-hospital day. The patient is still very hopeful, however. I think his fevers are central and I would not be inclined to offer any additional antibiotics at this time unless something changes dramatically. The patient's care now will revolve around avoiding pulmonary infection, decubitus ulcer, or urinary tract infection. RECOMMENDATIONS: 1. No antibiotics at this time. 2. ID will go ahead and sign off.
--- NOTE | 2016-09-15 11:32 | NUR ---
Patient's primary RN updated CWON with no new wound needs and nursing staff are managing sacral wound without challenge. CWON available for any changes but will not routinely see patient unless notified.
--- NOTE | 2016-09-15 11:50 | NUR ---
Jose hubbard. called xray and food checker. Attempting to schedule MBS for am tomorrow. Mian from xray will confirm with COMPUTER NETWORK SPECIALIST for approp time. After time arranged will notify and thread drawer. Addendum: 09/15/16 at 1331 by VICK DUGGAN RN MBS scheduled for 09/16/16 12:45 pm. at bedside and notified of time. Called thread drawer - they will have to call outside service to have someone here at that time. Addendum: 09/15/16 at 1708 by VICK DUGGAN RN COMPUTER NETWORK SPECIALIST came and assessed pt. Recommend cancel procedure for tomorrow for safety. will notify MD. Addendum: 09/15/16 at 1711 by VICK DUGGAN RN Notified MD of COMPUTER NETWORK SPECIALIST recommendations Called to cancel interrupter for tomorrow, left message. COMPUTER NETWORK SPECIALIST recommends proceed with PEG tube and continue to work on oral exercises.
--- NOTE | 2016-09-15 13:18 | PCM.PNNEPH ---
DORA ESPOSITO DO 09/15/16 1318: Subjective Date of Service Sep 15, 2016 Subjective Remains on DDAVP, urinary output 3.8 L over the last 24 hours. BUN creatinine continues to trend down Exam Vital Signs Vital Sign - Last Date Time Temp Pulse Resp B/P Pulse Ox O2 Delivery O2 Flow Rate FiO2 09/15/16 09:41 104 09/15/16 08:00 Supplement Oxygen 09/15/16 08:00 39.0 18 133/79 96 Intake and Output 09/14/16 09/14/16 09/15/16 Cumulative From/Thru 15:00 23:00 07:00 08/23/16 05:20 - 09/15/16 06:40 Intake Total 2755 ml 1682 ml 65415 ml Output Total 1925 ml 1900 ml 95656 ml Balance 830 ml -218 ml 6678 ml Intake Oral 560 ml IV Total 1422 ml 554 ml 07225 ml Tube Feeding 708 ml 528 ml 42822 ml Tube Irrigant 625 ml 600 ml 23498 ml Output Urine Total 1800 ml 1850 ml 40892 ml Stool Total 125 ml 50 ml 9415 ml Gastric Drainage Total 0 ml 1070 ml Ultrafiltrate 4700 ml # Bowel Movements 11 Exam General: Lying in hospital bed spontaneous opening of eyes. Still no verbal response to questioning, does not squeeze hand when prompted. HEENT: Normocephalic, atraumatic. Neck: No jugular venous distension. Cardiovascular: Regular rate and rhythm with no murmurs Pulmonary: Normal respiratory effort with no use of accessory muscles. Abdomen: Soft, nontender, nondistended. No rigidity and no guarding. Extremities: No clubbing, cyanosis, edema Skin: Warm to palpation, no rash Lab and Diagnostics Result Diagram: 09/14/16 0530 09/15/16 0520 Microbiology Blood cultures pending MRSA swab pending X-Rays, CTs and MRIs CT BRAIN WITHOUT CONTRAST IMPRESSION: No acute disease. Dictated by: Hemant Gallegos M.D. on 08/23/2016 CT BRAIN WITHOUT CONTRAST IMPRESSION: 1. Diffuse bilateral hypodensity of the globus pallidus. This is a new finding when compared with the study dated 08/23/16. Differential considerations include anoxic injury, carbon monoxide neurotoxicity, excessive alcohol ingestion, and methanol or ethylene glycol ingestion. Dictated by: Dinora Kang M.D. 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 Dictated by: Jacob Mosqueda M.D. on 08/28/2016 CT CHEST WITHOUT CONTRAST IMPRESSION: Small basal left pleural effusion is unchanged, with associated left lower lobe compressive atelectasis. Superimposed pneumonia therefore cannot be excluded. Dictated by: Binh Ochoa M.D. on 09/07/2016 at 13:47 US RENAL SONOGRAM IMPRESSION: No hydronephrosis. Right renal cyst. Dictated by: Shobha Vale M.D. on 08/24/2016 US ABDOMEN, LIMITED IMPRESSION: Cholelithiasis, without justin gallbladder wall thickening to suggest acute cholecystitis at this time. Dictated by: Binh Ochoa M.D. on 09/07/2016 MR ABDOMEN MRCP IMPRESSION: 1. Markedly limited study due to motion artifact. 2. Cholelithiasis without evidence of cholecystitis. 3. No biliary ductal dilatation or definite choledocholithiasis. 4. No peripancreatic edema to suggest pancreatitis an MRI. No discrete pseudocyst identified. Dictated by: Bruce Valadez M.D. on 09/08/2016 at 17:47 US ABDOMEN IMPRESSION: 1. Cholelithiasis. 2. Mild gallbladder wall thickening. Acute cholecystitis cannot be excluded. 3. Echogenic liver. Finding typically represents fatty infiltration; however, finding is nonspecific and correlation with clinical and laboratory findings is recommended to exclude other etiologies including hepatic cirrhosis. 4. Slightly echogenic right kidney suspicious for developing medical renal disease. Please correlate with clinical and laboratory data. Dictated by: Swathi Jimenes MD, PhD on 08/29/2016 US ABDOMEN, LIMITED IMPRESSION: Cholelithiasis, without justin gallbladder wall thickening to suggest acute cholecystitis at this time. Dictated by: Binh Ochoa M.D. on 09/07/2016 X-RAY CHEST ONE VIEW, PORTABLE IMPRESSION: No acute disease is seen a semiupright portable chest. Tubes are considered appropriate radiographically. Dictated by: Hemant Gallegos M.D. on 08/23/2016 X-RAY CHEST ONE VIEW, PORTABLE IMPRESSION: Support lines as above. Otherwise, no acute pulmonary process. Dictated by: Shobha Vale M.D. on 08/24/2016 X-RAY CHEST ONE VIEW, PORTABLE IMPRESSION: No acute cardiopulmonary disease process. Dictated by: Swathi Jimenes MD, PhD on 08/25/2016 X-RAY CHEST ONE VIEW, PORTABLE IMPRESSION: 1. Left basilar atelectasis. Otherwise lungs are clear. 2. ET and enteric tubes. Dictated by: Jacob Mosqueda M.D. on 08/27/2016 at 9:53 X-RAY CHEST ONE VIEW, PORTABLE IMPRESSION: Stable left basilar atelectasis and support lines. Dictated by: Jacob Mosqueda M.D. on 08/28/2016 at 7:54 Additional Diagnostics ABG DateTimeAnalyzed 10:20:00 -_ pH ____7.354 - 7.350 7.450 pCO2 ___31.5__ -mmHg 35.0 45.0 pO2 160 -mmHg 69.0 116 HCO3- ___17.1__ -mmol/L 22.0 26.0 FIO2 ___45.0__ -% PRVC 20 - PEEP ____8.0__ -cmH2O Plan Impression 1. JUWAN due to ATN, improving. 2. Polyuria - suspected CDI vs NDI in the setting of recovery phase of ATN. 3. Central fever. 4. Anoxic brain injury. Plan: 1/2 NS 125 ml/hr. discontinued yesterday Free water flushes 300 ml q 4 hr. Continue DDAVP. Alejandro Tapia MD 09/15/16 1447: Exam Lab and Diagnostics Result Diagram: 09/14/16 0530 09/15/16 0520 Plan Impression Nephrology: Patient was seen and examined. The case was discussed with Dr. Esposito. Agree with assessment and plan as above. Central DI - elevated urine osm, decreased UOP after DDAVP started. Plan: Continue free water flushes 350 ml q 4 hr (replacement and insensible loss). Continue tube feed. d/c 1/2 NS. Repeat daily BMP. DORA ESPOSITO DO Sep 15, 2016 13:18 Alejandro Tapia MD Sep 15, 2016 14:47
--- NOTE | 2016-09-15 14:08 | PCM.PNMED ---
Subjective Date of Service Sep 15, 2016 Subjective Unable to obtain ROS 2ndry to being nonverbal and not interactive Exam Vital Signs Vital Sign - Last Date Time Temp Pulse Resp B/P Pulse Ox O2 Delivery O2 Flow Rate FiO2 09/15/16 12:00 38.4 100 18 125/88 99 Room Air Intake and Output 09/14/16 09/14/16 09/15/16 Cumulative From/Thru 15:00 23:00 07:00 08/23/16 05:20 - 09/15/16 06:40 Intake Total 2755 ml 1682 ml 21975 ml Output Total 1925 ml 1900 ml 50840 ml Balance 830 ml -218 ml 6678 ml Intake Oral 560 ml IV Total 1422 ml 554 ml 19558 ml Tube Feeding 708 ml 528 ml 84500 ml Tube Irrigant 625 ml 600 ml 97191 ml Output Urine Total 1800 ml 1850 ml 32777 ml Stool Total 125 ml 50 ml 9415 ml Gastric Drainage Total 0 ml 1070 ml Ultrafiltrate 4700 ml # Bowel Movements 11 Exam He is awake. Unclear if he is actually alert or not. Does not seem to follow any command or respond to any verbal cues General: No Acute Distress Head: Normal Eyes: PERRLA, Scleral Anicteric Nose: Mucous Membr Moist/[place] Mouth: Mucous Membr Moist/Heartland Neck: Supple Chest & Lungs: Chest Wall Normal, Clear to auscultation & percussion Cardiovascular: Regular Rate/Rhythm Pulses: NL carotid, radial, femoral, DP, PT Extremities: No cyanosis/clubbing/edma bilat Neurological: Other (limited exam 2ndry to patient not following any commands) IVs and Medications Medications Reviewed: Medications were reviewed in detail Lab and Diagnostics Result Diagram: 09/14/16 0530 09/15/16 0520 Microbiology Blood cultures pending MRSA swab pending X-Rays, CTs and MRIs CT BRAIN WITHOUT CONTRAST IMPRESSION: No acute disease. Dictated by: Hemant Gallegos M.D. on 08/23/2016 CT BRAIN WITHOUT CONTRAST IMPRESSION: 1. Diffuse bilateral hypodensity of the globus pallidus. This is a new finding when compared with the study dated 08/23/16. Differential considerations include anoxic injury, carbon monoxide neurotoxicity, excessive alcohol ingestion, and methanol or ethylene glycol ingestion. Dictated by: Dinora Kang M.D. 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 Dictated by: Jacob Mosqueda M.D. on 08/28/2016 CT CHEST WITHOUT CONTRAST IMPRESSION: Small basal left pleural effusion is unchanged, with associated left lower lobe compressive atelectasis. Superimposed pneumonia therefore cannot be excluded. Dictated by: Binh Ochoa M.D. on 09/07/2016 at 13:47 US RENAL SONOGRAM IMPRESSION: No hydronephrosis. Right renal cyst. Dictated by: Shobha Vale M.D. on 08/24/2016 US ABDOMEN, LIMITED IMPRESSION: Cholelithiasis, without justin gallbladder wall thickening to suggest acute cholecystitis at this time. Dictated by: Binh Ochoa M.D. on 09/07/2016 MR ABDOMEN MRCP IMPRESSION: 1. Markedly limited study due to motion artifact. 2. Cholelithiasis without evidence of cholecystitis. 3. No biliary ductal dilatation or definite choledocholithiasis. 4. No peripancreatic edema to suggest pancreatitis an MRI. No discrete pseudocyst identified. Dictated by: Bruce Valadez M.D. on 09/08/2016 at 17:47 US ABDOMEN IMPRESSION: 1. Cholelithiasis. 2. Mild gallbladder wall thickening. Acute cholecystitis cannot be excluded. 3. Echogenic liver. Finding typically represents fatty infiltration; however, finding is nonspecific and correlation with clinical and laboratory findings is recommended to exclude other etiologies including hepatic cirrhosis. 4. Slightly echogenic right kidney suspicious for developing medical renal disease. Please correlate with clinical and laboratory data. Dictated by: Swathi Jimenes MD, PhD on 08/29/2016 US ABDOMEN, LIMITED IMPRESSION: Cholelithiasis, without justin gallbladder wall thickening to suggest acute cholecystitis at this time. Dictated by: Binh Ochoa M.D. on 09/07/2016 X-RAY CHEST ONE VIEW, PORTABLE IMPRESSION: No acute disease is seen a semiupright portable chest. Tubes are considered appropriate radiographically. Dictated by: Hemant Gallegos M.D. on 08/23/2016 X-RAY CHEST ONE VIEW, PORTABLE IMPRESSION: Support lines as above. Otherwise, no acute pulmonary process. Dictated by: Shobha Vale M.D. on 08/24/2016 X-RAY CHEST ONE VIEW, PORTABLE IMPRESSION: No acute cardiopulmonary disease process. Dictated by: Swathi Jimenes MD, PhD on 08/25/2016 X-RAY CHEST ONE VIEW, PORTABLE IMPRESSION: 1. Left basilar atelectasis. Otherwise lungs are clear. 2. ET and enteric tubes. Dictated by: Jacob Mosqueda M.D. on 08/27/2016 at 9:53 X-RAY CHEST ONE VIEW, PORTABLE IMPRESSION: Stable left basilar atelectasis and support lines. Dictated by: Jacob Mosqueda M.D. on 08/28/2016 at 7:54 Additional Diagnostics ABG DateTimeAnalyzed 10:20:00 -_ pH ____7.354 - 7.350 7.450 pCO2 ___31.5__ -mmHg 35.0 45.0 pO2 160 -mmHg 69.0 116 HCO3- ___17.1__ -mmol/L 22.0 26.0 FIO2 ___45.0__ -% PRVC 20 - PEEP ____8.0__ -cmH2O Assessment & Plan 41 year old male with known history of alcohol and drug use presented unresponsive after being found with vomit around him, sedated and intubated for acute hypoxemic respiratory failure secondary to aspiration for 5 days and extubated on hospital day 6 following successful spontaneous breathing trial. # Acute Anoxic Brain Injury, present on admission. Ongoing - Secondary to aspiration and intoxication. Patient had large volume of vomit suctioned out in the ED. - Initial EEG shows evidence of slowing but no other abnormalities to suggest that the patient is having clinical seizures causing his symptoms. - Intubated on 08/23/16, Extubated on 08/28/16. - Zosyn was given for 7 days earlier in the hospital course but was stopped per ID recommendation. - Appreciate neurology consult. Will followup with recs - Continue with supportive care # Acute dysphagia. Likely due to anoxic brain injury noted above. Present on admission. - Per earlier notes: "After Family meeting on 09/13, has requested MBS attempted again and would like to be present." - If MBS fail, will need to decide on PEG. - Palliative was following but signed off, will need to reconsult if PEG is decision. # Acute fevers, not present on admission. ongoing - Appreciate ID consult. Will followup with recs - Per ID consult, fevers thought to be likely due to central etiology. - Initially though due to Pancreatitis or Cholecystitis. UA is negative - Completed course of Ertapenem. - MRCP did not show further evidence of Pancreatitis or Cholecystitis. - Blood cultures are so far negative. - LFTs and lipase are slowly improving. # Mild acute hypernatremia, not present on admission, active. - Appreciate nephrology consult. Will followup with recs # Acute Kidney Injury, present on admission. Resolved - Cr on admission at 3.52 and increasing after admission. Unknown history of kidney injury. - Appreciate nephrology consult. Will followup with recs - Hemodialysis done daily starting 08/25/16 and then stopped. No longer on hemodialysis and catheter removed - Free water flushes 300 ml q 4 hr. - Continue DDAVP. # Acute Cholecystitis, present on admission. Resolved - Acute cholecystitis based on HIDA scan and abdominal CT. - Gen. surgery was consulted, Dr. Dash as intial thought of CCK. Upon follow up MRCP was negative for Acute Pancreatitis and Chronic cholecystitis. - Resolved cholelithiasis w/o choledocholithiasis. - No surgery indicated at this time given improvement. - TPN stopped on 09/06/16 as this was thought to be worsening cholecystitis and pancreatitis. # Acute Metabolic Acidosis, present on admission. Improved - Likely secondary to lactic acidosis and uremia - Monitor CMP: # Acute Rhabdomyolysis, present on admission, [place] [address]. Likely secondary to being in one position for 9 hours. - Wound care consult # Acute Hyperkalemia, present on admission, resolved - Kayexalate via feeding tube was given per nephro on 09/07 - Continue to monitor # Acute stage II ulcers in the buttock areas, present on admission. - Continue with wound care and supportive care # History of alcohol dependence - No need to institute CIWA protocol at this time # History of drug dependence - Known user of cocaine and ice - Per family, last known use is around 5 months ago. Dispo: pending goals of care, further swallow eval, and likely placement GI Prophylaxis: Not indicated (Patient extubated) VTE Prophylaxis: Sub-Q Heparin (Unfractionated), SCDs VTE Mechanical Devices: Intermittant Pneumatic CD Resuscitation Status: CPR: Attempt Resuscitation ( is ADM) Macario Abdalla Sep 15, 2016 14:08 SubQ heparin for now. SCDs in place. Social: Patient is an undocumented immigrant. However he may be eligible for Emergent Alien Inpatient resources. He may not have resources for outpatient care. Family does not seem to be understanding of his prognosis, is expecting that he would recover completely. We will continue discussions. Palliative care. On 09/07, physical therapy has seen the patient still recommends [facility] facility via BLS transfer. Please have social media specialist give way [employer] [facility] hospice care number. Patient's could potentially call this number for any financial help she could receive possibly even if she is not interested in hospice services. Disposition: Likely here for > 2 midnights. Dependent upon anoxic brain injury. Patient is improving at there be other problem except the fevers GI Prophylaxis: Not indicated (Patient extubated) VTE Prophylaxis: Sub-Q Heparin (Unfractionated), SCDs VTE Mechanical Devices: Intermittant Pneumatic CD Resuscitation Status: CPR: Attempt Resuscitation ( is ADM) Macario Abdalla Sep 15, 2016 14:08 Disposition: Likely here for > 2 midnights. Dependent upon anoxic brain injury. Patient is improving at there be other problem except the fevers GI Prophylaxis: Not indicated (Patient extubated) VTE Prophylaxis: Sub-Q Heparin (Unfractionated), SCDs VTE Mechanical Devices: Intermittant Pneumatic CD Resuscitation Status: CPR: Attempt Resuscitation ( is ADM) Macario Abdalla Sep 15, 2016 14:08
--- NOTE | 2016-09-15 14:21 | NUR ---
Evaluation completed. Please go to "Notes" then click on "Assessments and Notes" (bottom left corner of screen). Then select appropriate discipline tab on top of screen. Addendum: 09/15/16 at 1422 by KATIE WARD WRONG PATIENT. DISREGARD
--- NOTE | 2016-09-15 14:23 | NUR ---
NUTRITION FOLLOW UP: ASSESS: 41 YO male with anoxic brain injury, continues to be non-verbal per RN notes; JUWAN 2/2 rhabdomyolysis is resolving. Nephrology continues to follow and manage fluids. MBS is planned for 09/16 and pending results, pt may have PEG placed. PMHx: ETOH abuse. DIET: NPO. NUTRITION SUPPORT: Jevity 1.5 at goal rate of 70 ML/hr, 300 ML H20 flush every 4 hours providing 2415 kcals, 103 g protein, 3024 ml free H2O. LABS: Reviewed. Na 145, BUN 43, Glu 121, Ca 8.4. MEDICATIONS: Reviewed. GI: FMS in place: 50 mL output (09/15) SKIN: Thoracic spine wound healed. L gluteal wound improving per wound note. ANTHROPOMETRICS: Current Wt: 87.3 kg. Admit wt: 95.1 kg. IBW: 72.7 kg ESTIMATED NEEDS (Wounds) Calories: 0355-6517 kcal/day (25-35 kcal/kg BW) Protein: 85-110 g protein (1.2-1.5 g/kg BW IBW) Fluid: Approx. ~5714-3699 mL (25-35 mL/kg BW) but fluids per nephrology at this time. NUTRITION DIAGNOSIS: 1) Inadequate oral intake related to inability to consume sufficient energy due to cognition, as evidenced by NPO status - PERSISTS. 2) Increased nutrient needs related to increased needs for disease state as evidenced by JUWAN and current skin issues - PERSISTS. INTERVENTION: 1) Recommend continuing current TF at this time. 2.) Fluids per nephrology--300ml every 4 hrs. MONITOR/EVALUATE: Enteral feeding, labs, weights, MBS, GI/nutrition status. Follow per high nutrition risk guidelines.
--- NOTE | 2016-09-15 14:30 | NUR ---
TF flush increased flush, per MD order, to 350 ml every 4 hours.
--- NOTE | 2016-09-15 15:45 | NUR ---
Mobility Pt turned q2hr. moaned with turning but readily fell asleep. Occas opened eyes, no verbalization noted. providing ROM while in room.
--- NOTE | 2016-09-15 16:28 | NUR ---
Social Work Note: Continued Discharge Plan Data& Assessment: Per RN in multidisciplinary rounds, pt is anxious about barium swallow and would like to witness pt's abilities herself with an in person gas cutter (rather than the portable electronic gas cutter used during the weekend). SW spoke with Respiratory Therapist today who explained that pt is not appropriate to be seen to day due to not being able to participate in the swallow test and being non responsive. Per Respiratory Therapist, pt's responsiveness has been decreasing every time she has seen pt for evaluations this past week. Pt is on the schedule for a swallow evaluation tomorrow at 1p.m. Respiratory Therapist plans to have in person gas cutter there as well. SW to follow up with pt family and Respiratory therapy after swallow evaluation is completed. SW to continue to follow. Plan: Anticipated discharge home with family teaching and support vs. Private pay at a SNF. SW to follow up with pt family and Respiratory therapy after swallow evaluation is completed. SW to continue to follow. JEFF Swan
[2016-09-15] MEDS: Acetaminophen 32.5 mg/mL 20 mL Liquid PO PRN (21:25)
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
[2016-09-16] VITALS (8 sets, daily range): BP systolic 122–138; BP diastolic 74–88; PULSE 84–96; RESP 16–24; O2SAT 96–99
[2016-09-16] MEDS: Heparin 5,000 Unit/mL Inj SUBQ SCH ×3 (00:16→16:30)
--- NOTE | 2016-09-16 05:35 | NUR ---
MRI Results Results showing no improvement per interpretation. Pt. continues to show little physical or mental improvement . VSS. Still total nursing care needed. WCTM
[2016-09-16] MEDS: AMANTADINE 10 MG/ML TUBE SCH (08:49)
[2016-09-16] MEDS: Thiamine Inj 200 MG in Dextrose 5% 50 ML IV SCH (08:49)
--- NOTE | 2016-09-16 11:48 | PCM.PNNEPH ---
DORA RIVAS DO 09/16/16 1148: Subjective Date of Service Sep 16, 2016 Subjective Remains on DDAVP, urinary output 3.6 L over the last 24 hours. Creatinine has normalized 0.95, BUN 41 today, continues to trend down Exam Vital Signs Vital Sign - Last Date Time Temp Pulse Resp B/P Pulse Ox O2 Delivery O2 Flow Rate FiO2 09/16/16 10:27 96 09/16/16 09:00 38.9 18 134/84 99 Room Air Intake and Output 09/15/16 09/15/16 09/16/16 Cumulative From/Thru 15:00 23:00 07:00 08/23/16 05:20 - 09/16/16 05:46 Intake Total 1279 ml 1099 ml 92818 ml Output Total 1000 ml 850 ml 1000 ml 26917 ml Balance 279 ml -850 ml 99 ml 6206 ml Intake Oral 0 ml 560 ml IV Total 132 ml 50 ml 67112 ml Tube Feeding 522 ml 630 ml 90328 ml Tube Irrigant 625 ml 419 ml 85672 ml Output Urine Total 900 ml 850 ml 1000 ml 77362 ml Stool Total 100 ml 9515 ml Gastric Drainage Total 1070 ml Ultrafiltrate 4700 ml # Bowel Movements 11 Exam General: Lying in hospital bed at bedside spontaneous opening of eyes. Does not respond verbally or with purposeful movement questions HEENT: Normocephalic, atraumatic. Neck: No jugular venous distension. Cardiovascular: Regular rate and rhythm with no murmurs Pulmonary: Normal respiratory effort with no use of accessory muscles. Abdomen: Soft, nontender, nondistended. No rigidity and no guarding. Extremities: No clubbing, cyanosis, edema Skin: Warm to palpation, no rash IVs and Medications Medications Reviewed: Medications were reviewed in detail Lab and Diagnostics Result Diagram: 09/14/16 0530 09/16/16 0500 Microbiology Blood cultures pending MRSA swab pending X-Rays, CTs and MRIs CT BRAIN WITHOUT CONTRAST IMPRESSION: No acute disease. Dictated by: Hemant Gallegos M.D. on 08/23/2016 CT BRAIN WITHOUT CONTRAST IMPRESSION: 1. Diffuse bilateral hypodensity of the globus pallidus. This is a new finding when compared with the study dated 08/23/16. Differential considerations include anoxic injury, carbon monoxide neurotoxicity, excessive alcohol ingestion, and methanol or ethylene glycol ingestion. Dictated by: Dinora Kang M.D. 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 Dictated by: Jacob Mosqueda M.D. on 08/28/2016 MRI STROKE PROTOCOL IMPRESSION: BRAIN MRI: Continued worsening of ischemic injury to the brain parenchyma, symmetric bilaterally, and best seen in the deep white matter of the lentiform nuclei, the wolfe radiata, and the centrum semiovale. No associated hemorrhage. BRAIN MR ANGIOGRAM: No acute disease to the intracranial arterial vasculature. NECK MR ANGIOGRAM: Normal cervical MR angiogram. The estimate of stenosis included in the report of the imaging study was calculated using the NASCET method Dictated by: Jack Padilla M.D. on 09/15/2016 CT CHEST WITHOUT CONTRAST IMPRESSION: Small basal left pleural effusion is unchanged, with associated left lower lobe compressive atelectasis. Superimposed pneumonia therefore cannot be excluded. Dictated by: Binh Ochoa M.D. on 09/07/2016 at 13:47 US RENAL SONOGRAM IMPRESSION: No hydronephrosis. Right renal cyst. Dictated by: Shobha Vale M.D. on 08/24/2016 US ABDOMEN, LIMITED IMPRESSION: Cholelithiasis, without justin gallbladder wall thickening to suggest acute cholecystitis at this time. Dictated by: Binh Ochoa M.D. on 09/07/2016 MR ABDOMEN MRCP IMPRESSION: 1. Markedly limited study due to motion artifact. 2. Cholelithiasis without evidence of cholecystitis. 3. No biliary ductal dilatation or definite choledocholithiasis. 4. No peripancreatic edema to suggest pancreatitis an MRI. No discrete pseudocyst identified. Dictated by: Bruce Valadez M.D. on 09/08/2016 at 17:47 US ABDOMEN IMPRESSION: 1. Cholelithiasis. 2. Mild gallbladder wall thickening. Acute cholecystitis cannot be excluded. 3. Echogenic liver. Finding typically represents fatty infiltration; however, finding is nonspecific and correlation with clinical and laboratory findings is recommended to exclude other etiologies including hepatic cirrhosis. 4. Slightly echogenic right kidney suspicious for developing medical renal disease. Please correlate with clinical and laboratory data. Dictated by: Swathi Jimenes MD, PhD on 08/29/2016 US ABDOMEN, LIMITED IMPRESSION: Cholelithiasis, without justin gallbladder wall thickening to suggest acute cholecystitis at this time. Dictated by: Binh Ochoa M.D. on 09/07/2016 X-RAY CHEST ONE VIEW, PORTABLE IMPRESSION: No acute disease is seen a semiupright portable chest. Tubes are considered appropriate radiographically. Dictated by: Hemant Gallegos M.D. on 08/23/2016 X-RAY CHEST ONE VIEW, PORTABLE IMPRESSION: Support lines as above. Otherwise, no acute pulmonary process. Dictated by: Shobha Vale M.D. on 08/24/2016 X-RAY CHEST ONE VIEW, PORTABLE IMPRESSION: No acute cardiopulmonary disease process. Dictated by: Swathi Jimenes MD, PhD on 08/25/2016 X-RAY CHEST ONE VIEW, PORTABLE IMPRESSION: 1. Left basilar atelectasis. Otherwise lungs are clear. 2. ET and enteric tubes. Dictated by: Jacob Mosqueda M.D. on 08/27/2016 at 9:53 X-RAY CHEST ONE VIEW, PORTABLE IMPRESSION: Stable left basilar atelectasis and support lines. Dictated by: Jacob Mosqueda M.D. on 08/28/2016 at 7:54 Additional Diagnostics ABG DateTimeAnalyzed 10:20:00 -_ pH ____7.354 - 7.350 7.450 pCO2 ___31.5__ -mmHg 35.0 45.0 pO2 160 -mmHg 69.0 116 HCO3- ___17.1__ -mmol/L 22.0 26.0 FIO2 ___45.0__ -% PRVC 20 - PEEP ____8.0__ -cmH2O Plan Impression 1. 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 He still has what appears to be central diabetes insipidus which has responded to DDAVP on a daily basis. At this point we will sign off the case and would recommend continuing the DDAVP and attempt to balance the intake and output with his fluids. Should you have any questions or any problems arise between now and discharge restart hesitate to contact us. Thank you for the kind consultation. DORA RIVAS DO Sep 16, 2016 11:48 Ace Whatley DO Sep 16, 2016 13:19
[2016-09-16] MEDS: DESMOPRESSIN IV SCH ×2 (14:00→15:31)
[2016-09-16] MEDS: SODIUM CHLORIDE 0.9% IV SCH ×2 (14:00→15:31)
--- NOTE | 2016-09-16 15:05 | PCM.PNMED ---
Subjective Date of Service Sep 16, 2016 Subjective Unable to obtain ROS 2ndry to being nonverbal and not interactive Exam Vital Signs Vital Sign - Last Date Time Temp Pulse Resp B/P Pulse Ox O2 Delivery O2 Flow Rate FiO2 09/16/16 10:27 96 09/16/16 09:00 38.9 18 134/84 99 Room Air Intake and Output 09/15/16 09/15/16 09/16/16 Cumulative From/Thru 15:00 23:00 07:00 08/23/16 05:20 - 09/16/16 05:46 Intake Total 1279 ml 1099 ml 39755 ml Output Total 1000 ml 850 ml 1000 ml 07663 ml Balance 279 ml -850 ml 99 ml 6206 ml Intake Oral 0 ml 560 ml IV Total 132 ml 50 ml 36846 ml Tube Feeding 522 ml 630 ml 64558 ml Tube Irrigant 625 ml 419 ml 97900 ml Output Urine Total 900 ml 850 ml 1000 ml 28834 ml Stool Total 100 ml 9515 ml Gastric Drainage Total 1070 ml Ultrafiltrate 4700 ml # Bowel Movements 11 Exam He is awake. Unclear if he is actually alert or not. Does not seem to follow any command or respond to any verbal cues General: No Acute Distress Head: Normal Eyes: Scleral Anicteric Nose: Mucous Membr Moist/Arpin Mouth: Mucous Membr Moist/Arpin Neck: Supple Chest & Lungs: Chest Wall Normal, Clear to auscultation bilat Cardiovascular: Regular Rate/Rhythm Pulses: NL DP, PT Extremities: No cyanosis/clubbing/edema bilat Neurological: Other (limited exam 2ndry to patient not following any commands) IVs and Medications Medications Reviewed: Medications were reviewed in detail Lab and Diagnostics Result Diagram: 09/14/16 0530 09/16/16 0500 Microbiology Blood cultures pending MRSA swab pending X-Rays, CTs and MRIs CT BRAIN WITHOUT CONTRAST IMPRESSION: No acute disease. Dictated by: Hemant Gallegos M.D. on 08/23/2016 CT BRAIN WITHOUT CONTRAST IMPRESSION: 1. Diffuse bilateral hypodensity of the globus pallidus. This is a new finding when compared with the study dated 08/23/16. Differential considerations include anoxic injury, carbon monoxide neurotoxicity, excessive alcohol ingestion, and methanol or ethylene glycol ingestion. Dictated by: Dinora Kang M.D. 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 Dictated by: Jacob Mosqueda M.D. on 08/28/2016 MRI STROKE PROTOCOL IMPRESSION: BRAIN MRI: Continued worsening of ischemic injury to the brain parenchyma, symmetric bilaterally, and best seen in the deep white matter of the lentiform nuclei, the wolfe radiata, and the centrum semiovale. No associated hemorrhage. BRAIN MR ANGIOGRAM: No acute disease to the intracranial arterial vasculature. NECK MR ANGIOGRAM: Normal cervical MR angiogram. The estimate of stenosis included in the report of the imaging study was calculated using the NASCET method Dictated by: Jack Padilla M.D. on 09/15/2016 CT CHEST WITHOUT CONTRAST IMPRESSION: Small basal left pleural effusion is unchanged, with associated left lower lobe compressive atelectasis. Superimposed pneumonia therefore cannot be excluded. Dictated by: Binh Ochoa M.D. on 09/07/2016 at 13:47 US RENAL SONOGRAM IMPRESSION: No hydronephrosis. Right renal cyst. Dictated by: Shobha Vale M.D. on 08/24/2016 US ABDOMEN, LIMITED IMPRESSION: Cholelithiasis, without justin gallbladder wall thickening to suggest acute cholecystitis at this time. Dictated by: Binh Ochoa M.D. on 09/07/2016 MR ABDOMEN MRCP IMPRESSION: 1. Markedly limited study due to motion artifact. 2. Cholelithiasis without evidence of cholecystitis. 3. No biliary ductal dilatation or definite choledocholithiasis. 4. No peripancreatic edema to suggest pancreatitis an MRI. No discrete pseudocyst identified. Dictated by: Bruce Valadez M.D. on 09/08/2016 at 17:47 US ABDOMEN IMPRESSION: 1. Cholelithiasis. 2. Mild gallbladder wall thickening. Acute cholecystitis cannot be excluded. 3. Echogenic liver. Finding typically represents fatty infiltration; however, finding is nonspecific and correlation with clinical and laboratory findings is recommended to exclude other etiologies including hepatic cirrhosis. 4. Slightly echogenic right kidney suspicious for developing medical renal disease. Please correlate with clinical and laboratory data. Dictated by: Swathi Jimenes MD, PhD on 08/29/2016 US ABDOMEN, LIMITED IMPRESSION: Cholelithiasis, without justin gallbladder wall thickening to suggest acute cholecystitis at this time. Dictated by: Binh Ochoa M.D. on 09/07/2016 X-RAY CHEST ONE VIEW, PORTABLE IMPRESSION: No acute disease is seen a semiupright portable chest. Tubes are considered appropriate radiographically. Dictated by: Hemant Gallegos M.D. on 08/23/2016 X-RAY CHEST ONE VIEW, PORTABLE IMPRESSION: Support lines as above. Otherwise, no acute pulmonary process. Dictated by: Shobha Vale M.D. on 08/24/2016 X-RAY CHEST ONE VIEW, PORTABLE IMPRESSION: No acute cardiopulmonary disease process. Dictated by: Swathi Jimenes MD, PhD on 08/25/2016 X-RAY CHEST ONE VIEW, PORTABLE IMPRESSION: 1. Left basilar atelectasis. Otherwise lungs are clear. 2. ET and enteric tubes. Dictated by: Jacob Mosqueda M.D. on 08/27/2016 at 9:53 X-RAY CHEST ONE VIEW, PORTABLE IMPRESSION: Stable left basilar atelectasis and support lines. Dictated by: Jacob Mosqueda M.D. on 08/28/2016 at 7:54 Date of Service: 09/15/16 1757 PROCEDURE: MRI STROKE PROTOCOL ([id number]) IMPRESSION: BRAIN MRI: Continued worsening of ischemic injury to the brain parenchyma, symmetric bilaterally, and best seen in the deep white matter of the lentiform nuclei, the wolfe radiata, and the centrum semiovale. No associated hemorrhage. BRAIN MR ANGIOGRAM: No acute disease to the intracranial arterial vasculature. NECK MR ANGIOGRAM: Normal cervical MR angiogram. The estimate of stenosis included in the report of the imaging study was calculated using the NASCET method Dictated by: Jack Padilla M.D. on 09/15/2016 at 21:36 Approved by: Jack Padilla M.D. on 09/15/2016 at 21:42 Additional Diagnostics ABG DateTimeAnalyzed 10:20:00 -_ pH ____7.354 - 7.350 7.450 pCO2 ___31.5__ -mmHg 35.0 45.0 pO2 160 -mmHg 69.0 116 HCO3- ___17.1__ -mmol/L 22.0 26.0 FIO2 ___45.0__ -% PRVC 20 - PEEP ____8.0__ -cmH2O Assessment & Plan 41 year old male with known history of alcohol and drug use presented unresponsive after being found with vomit around him, sedated and intubated for acute hypoxemic respiratory failure secondary to aspiration for 5 days and extubated on hospital day 6 following successful spontaneous breathing trial. # Acute Brain Injury, present on admission. Ongoing and worsening - Strongly suspected anoxic brain injury given presenting history - Secondary to aspiration and intoxication. Patient had large volume of vomit suctioned out in the ED. - Initial EEG showed evidence of slowing but no other abnormalities to suggest that the patient is having clinical seizures causing his symptoms. - Intubated on 08/23/16, Extubated on 08/28/16. - Zosyn was given for 7 days earlier in the hospital course but was stopped per ID recommendation. - Patient with reported neurologic deterioration few days after extubation and transfer out of ICU - Repeat MRI of brain on 09/15/16 showing: "Continued worsening of ischemic injury to the brain parenchyma, symmetric bilaterally" - Discussed new MRI findings with neuro consult. ? if these findings due to underlying vasculitis, infection or other etiology - Appreciate neurology consult. Will followup with recs - Check CTA brain - Check LP with CSF analysis # Acute dysphagia. Likely due to anoxic brain injury noted above. Present on admission. - Per earlier notes: "After Family meeting on 09/13, has requested MBS attempted again and would like to be present." - Pt failed MBS on 09/15 due to inability to fully follow instructions. - Continue with Ngtube feed and hold PEG placement until above workup complete and determine if neuro changes can be reversible. - Palliative was following but signed off, will need to reconsult if PEG is decision. # Acute fevers, not present on admission. ongoing - Appreciate ID consult. Will followup with recs - Per ID consult, fevers thought to be likely due to central etiology. - Initially though due to Pancreatitis or Cholecystitis. UA is negative - Completed course of Ertapenem. - MRCP did not show further evidence of Pancreatitis or Cholecystitis. - Blood cultures are so far negative. - LFTs and lipase are slowly improving. - Vasculitis workup and LP as noted above # Mild acute hypernatremia, not present on admission, active. - Appreciate nephrology consult. Will followup with recs # Acute Kidney Injury, present on admission. Resolved - Cr on admission at 3.52 and increasing after admission. Unknown history of kidney injury. - Appreciate nephrology consult. Will followup with recs - Hemodialysis done daily starting 08/25/16 and then stopped. No longer on hemodialysis and catheter removed - Free water flushes 300 ml q 4 hr. - Continue DDAVP. # Acute Cholecystitis, present on admission. Resolved - Acute cholecystitis based on HIDA scan and abdominal CT. - Gen. surgery was consulted, Dr. Dash as intial thought of CCK. Upon follow up MRCP was negative for Acute Pancreatitis and Chronic cholecystitis. - Resolved cholelithiasis w/o choledocholithiasis. - No surgery indicated at this time given improvement. - TPN stopped on 09/06/16 as this was thought to be worsening cholecystitis and pancreatitis. # Acute Metabolic Acidosis, present on admission. Improved - Likely secondary to lactic acidosis and uremia - Monitor CMP: # Acute Rhabdomyolysis, present on admission, resolved [place] [address]. Likely secondary to being in one position for 9 hours. - Wound care consult # Acute Hyperkalemia, present on admission, resolved - Kayexalate via feeding tube was given per nephro on 09/07 - Continue to monitor # Acute stage II ulcers in the buttock areas, present on admission. - Continue with wound care and supportive care # History of alcohol dependence - No need to institute CIWA protocol at this time # History of drug dependence - Known user of cocaine and ice - Per family, last known use is around 5 months ago. Dispo: pending goals of care, further swallow eval, and likely placement GI Prophylaxis: Not indicated (Patient extubated) VTE Prophylaxis: Sub-Q Heparin (Unfractionated), SCDs VTE Mechanical Devices: Intermittant Pneumatic CD Resuscitation Status: CPR: Attempt Resuscitation ( is ADM) Macario Abdalla Sep 16, 2016 15:05
[2016-09-16 16:25] LABS: BASOPHILS % (AUTO) 0.6 % (0-3); EOSINOPHILS % (AUTO) 5.4 % (0-5); MONOCYTES % (AUTO) 7.7 % (4-12); Mean Corpuscular Hemoglobin 29.1 pg (27.0-35.0); Mean Corpuscular Volume 90.9 fL (81-100); NEUTROPHILS % (AUTO) 61.7 % (40-74); Platelet Count 151 bil/L (150-400)
--- NOTE | 2016-09-16 17:00 | NUR ---
Social Work Note: Continued Discharge Planning Data& Assessment: SW attempted to meet with pt at bedside to check in regarding pt condition and goals of pt family. Pt was actively being transported for spinal tap and pt accompanying him. Per conversation with RN and EMR documentation, pt condition is declining and pt is undergoing further testing to identify reasoning for the decline. Pt prognosis is unclear at this time. Pt medical plan of care unclear at this time. Pt not appropriate for barium swallow the last two days to help pt decide on potential PEG tube placement or not. SW to continue to follow for medical progression and prognosis. SW to check in with pt when appropriate. [facility] unable to accept pt. Final PT equipment recommendations for safety at home are pending. Potential plan for pt to discharge home with family support with teaching and equipment had previously been discussed with pt family. SW to discuss over all care plan with pt when prognosis and medical care plan is clarified. SW to continue to follow. Plan: Pt prognosis unclear at this time. If pt medically progresses and becomes clinically stable, anticipated discharge home with family support pending final nutrition plan, PT equipment recommendations and family teaching. SW to discuss over all care plan with pt when prognosis and medical care plan is clarified. SW to continue to follow. JEFF Swan
[2016-09-16 17:14] LABS: ERYTHROCYTE SEDIMENTATION RATE 63 mm/hr (0-15)
--- NOTE | 2016-09-16 17:22 | NUR ---
Shift Report: Patient continues to be lethargic (no purposeful mvmt seen by this RN and eyes closed most of day), febrile, total care. New diagnostics ordered to follow up MRI from yesterday that showed a worse scan than previous one. Lumbar puncture was unsuccessful at bs, taken to radiology for procedure. and family continue to be updated. Speech declined to see patient today pending further studies. PT unable to evaluate patient today, but per report, patient not progressing in therapy over the last 3 weeks.
--- NOTE | 2016-09-16 18:24 | PCM.PROC ---
Procedure Note Date of Service: Sep 16, 2016 Pre Procedure Diagnosis: Encephalopathy with concern for possible vasculitis Procedure: Lumbar Puncture Provider and Public Health Dietitian: Dr. Kamini Craig Procedural Analgesia: Lidocaine Procedure Details: Mr. Ann is an awake but essentially unresponsive patient s/p anoxic brain injury. He was passively position into a right lateral decubitus semi- positioning with maximal hip flexion. The patient's illiac crests were palpated to approximate his L4-L5 inter-vertebral space. The superior and inferior spinous processes were identified and a depression between them presumed to be the L4-L5 inter-vertebral space was marked. The patient was then sterilized using iodine swabs and draped using sterile technique. Lidocaine was injected into the planned access route for procedural analgesia. A 20 guage spinal access needle was advanced until elastic resistance was met with elastic resistance typical of that encountered when accessing the spinal column. However , no CSF was drained through the needle. Several more attempts were made, with apparent palpatory feel of entering Spinal column, however no fluid was ever expressed from the spinal needle. The procedure was subsequently abandoned and referral to radiology was made for attempt to be made under radiographic guidance. Attending Statement The patient was seen and examined together with Dr. Craig on 09/16/16 and I have added additional information to the note above. Louie Craig DO Sep 16, 2016 18:24 Kamini Bran DO Sep 18, 2016 14:13
--- NOTE | 2016-09-16 18:44 | DRSVH ---
PROCEDURE: CT ANGIOGRAPHY OF THE BRAIN WITH AND WITHOUT CONTRAST ([id number]) INDICATIONS: fever, worsening mental stat. ? vasculitis TECHNIQUE: Precontrast 4.5 mm thick angled axial sections acquired from the foramen magnum to the vertex. Afte r the administration of intravenous contrast, 1 mm thick sections acquired through the [place] of Will is. Postcontrast 4.5 mm thick sections then re-acquired from the foramen magnum to the vertex. 3-di mensional fzkruqo-bguvdtubo-skfyhjumfc (MIP) and/or volume rendering reformats were acquired of the c entral intracranial vasculature. For radiation dose reduction, the following was used: automated ex posure control, adjustment of mA and/or kV according to patient size. COMPARISON: [facility], MR, MR STROKE PROTOCOL, 09/15/2016, 19:23. [facility], CT, CT BRAIN WO CON, 08/25/2016, 15:22. FINDINGS: Image quality: Good Anterior circulation: Intracranial internal carotid arteries are normal in size and flow. The flow within the paired anterior cerebral arteries is normal and symmetric. The flow within the middle cer ebral arteries is normal and symmetric. The anterior communicating artery is seen. No aneurysms are seen. Posterior circulation: Visualized portions of the vertebral arteries demonstrate normal caliber, and join to form a normal appearing basilar artery. Flow within the posterior cerebral arteries is norm al and symmetric. No aneurysms are seen. CSF spaces: Ventricles are normal in size and shape. Basal cisterns are patent. No extra-axial flu id collections. Brain: No midline shift. No intracranial bleeds or masses. Isaacs-white matter interface appears int act. There is no prominent patchy low attenuation in the white matter a greater amounts than on the CT of 08/25/16 consistent with a worsening MRI appearance. Skull and face: Calvarium and facial bones appear intact, without suspicious lesions. Sinuses: Visualized sinuses and mastoids are clear. IMPRESSION: 1. Worsening patchy white matter disease. This can't be determined angiitis no changes to indicate in farction are seen. 2. Intracranial vasculature is grossly normal. No abnormal distribution of vasculature or focal area of decreased or increased vasculature is identified. Dictated by: Hemant Gallegos M.D. on 09/16/2016 at 18:32 Approved by: Hemant Gallegos M.D. on 09/16/2016 at 18:43
--- NOTE | 2016-09-16 18:49 | DRSVH ---
PROCEDURE: X-RAY LUMBAR PUNCTURE ([id number]) INDICATIONS: fever, paralysis, ischemia on MRI. TECHNIQUE: The indications, alternatives, benefits, risks, and complications were explained to the patient. Es swartz informed consent was obtained and placed in the chart. The patient was placed in a prone positi on on the fluoroscopy table, and a level was chosen for percutaneous access under fluoroscopic guidan ce. The site was prepped and draped in a sterile fashion. After local anaesthetic, a spinal needle was then used to enter the intrathecal space, with return of cerebrospinal fluid. After obtaining sufficient fluid, the needle was then withdrawn, and a bandage applied to the punctur e site. FINDINGS: Puncture level: L3-4 Needle: 22 gauge Spinal needle. Opening pressure: Not requested. CSF volume and description: Linear, approximately 25 cc Medications: 1% lidocaine for anaesthesia. Complications: None Laboratories: As ordered by referring clinician. IMPRESSION: Successful fluoroscopically guided lumbar puncture. Dictated by: Hemant Gallegos M.D. on 09/16/2016 at 18:48 Approved by: Hemant Gallegos M.D. on 09/16/2016 at 18:48
[2016-09-16 19:12] LABS: APPEARANCE,CSF CLEAR (CLEAR); COLOR,CSF COLORLESS (COLORLESS); WHITE BLOOD CELL,CSF 1 /mm3 (0-5)
--- NOTE | 2016-09-16 19:49 | PROG NOTE ---
[address] [address] PROGRESS NOTE PATIENT: SANDY SOSA : 1975 MR#: [id number] ADMIT: 08/23/2016 JOB ID: [id number] DATE: 09/16/2016 REQUESTING PHYSICIAN: Dr. Abdalla. REASON FOR STUDY: Worsening encephalopathy. INTERIM HISTORY: The patient is a 41-year-old gentleman who sustained an anoxic injury on August 23, 2016 due to overdose. The patient developed acute tubular necrosis secondary to rhabdomyolysis and was been followed by Nephrology. The patient had possible aspiration pneumonia and has been followed by Dr. Lopez. Both of these symptoms have improved. When I last saw him, the patient was showing voluntary movement on August 27, 2016 after being extubated. MRI of the brain at that time showed evidence of what appeared to be anoxic injury. His MRI from August 2016 showed what appeared to be possible subacute infarctions in the globus pallidus bilaterally and also white matter changes. This study was completed after the initial CT of the brain showed evidence of hypointensity in the same distribution. It was hypothesized that this was possibly related to his ingestion of illicit drugs, Spice in particular. An EEG had shown slowed background but otherwise no epileptiform abnormalities. The patient declined after my last evaluation after being transferred out of the ICU. Dr. Abdalla requested a repeat MRI of the brain to assess for the etiology of the decline. I have personally reviewed the MRI of the brain on the PAC system from September 15, 2016 which shows diffuse white matter and rodriguez matter changes with diffusion-weighted changes in a lentiform nuclei bilaterally. This was read as worsening ischemic injury to the brain parenchyma. Given the abnormal MRI, Dr. Abdalla requested Neurology re-evaluate the patient. I suggested in addition to the MRI an MR angiogram which showed no abnormalities and a CT angio to better evaluate the smaller vessels for possible vasculitis. I also suggested an LP (lumbar puncture) to evaluate for central nervous system infection. It should be noted that Dr. Lopez had appreciated spiking temperatures but attributed these to central causes not necessarily infection. The CT angiography of the brain did not show any evidence of vasculitis. The lumbar puncture results, CSF results are pending. The patient's and mother are at the bedside. His reports a fluctuating course. He apparently was talking to someone in [place] yesterday, but today is showing no movement in the extremities. She confirms that he was able to move all four extremities and speak with her prior to the transfer out of the ICU. Review of systems is not obtainable due to encephalopathy. Medications reviewed. OBJECTIVE: Vital signs: Blood pressure 138/88, temperature 37.8, pulse is 90, respiratory rate 24, pulse oximetry 96% on room air. Head is normocephalic, atraumatic. No evidence of carotid bruits. Lungs: Clear to auscultation. Cardiac: Regular rate and rhythm. No edema in the lower extremities. NEUROLOGIC EXAMINATION: The patient made eye contact but no voluntary movement is noted otherwise. He seems to turn towards this examiner. This is a limited examination due to patient's encephalopathy. He does not speak. An NG tube is in place. Cranial nerves: Pupils equally reactive to light and accommodation. Extraocular movements intact. Cranial nerves cannot be evaluated due to encephalopathy further. Motor: No motor activity voluntarily or involuntarily. Deep tendon reflexes are trace throughout with plantar reflex mute. Tone: Intact upper and lower extremities. Sensation: The patient responds to pain in all four extremities. Gait and coordination are deferred due to encephalopathy. IMAGING STUDIES: As above. LABORATORY STUDIES: CSF study is pending. Creatinine is 0.95, glucose 126 from earlier today. C-reactive protein 1.6. White count 10.5, hemoglobin and hematocrit 10.5/32.8. ESR 63. ASSESSMENT AND RECOMMENDATION: The patient is a 41-year-old gentleman who sustained anoxic injury on August 23, 2016. Following extubation, the patient was moving all four extremities and able to carry out complex tasks and speak with his . Since his transfer from the ICU, family members and his providers note a gradual decline while all of his metabolic functions have improved. He has continued to have fevers without clear etiology. Head CT showed evidence of global pallidus involvement and MRIs have shown acute and subacute areas of ischemia by report and now with his 2nd MRI showing extensive white matter and rodriguez matter involvement with diffusion weighted changes. CT angiography did not show any evidence of vasculitis, however, it may not show very small vessels. He may need conventional angiography which is not available at this hospital. The LP results are still pending for evaluation of CSF for any evidence of infection. As I discussed with Dr. Abdalla and the family, if there is no evidence of infection, I would recommend that the case be discussed with [facility] neurohospitalist for possible drug-induced vasculitis or encephalitis or alternative cause for the patient's symptoms. The MRI should be pushed through to [facility] to discuss this case and whether there is any need for transfer. I will await the results of the CSF studies. Over half of this 50 minute evaluation was spent in counseling with the family. I will make further recommendations once the study has been completed. AUBREY
[2016-09-17] VITALS (7 sets, daily range): BP systolic 117–127; BP diastolic 69–82; PULSE 83–90; RESP 14–20; O2SAT 95–98
[2016-09-17] MEDS: Heparin 5,000 Unit/mL Inj SUBQ SCH ×3 (00:34→16:23)
[2016-09-17] MEDS: SODIUM CHLORIDE 0.9% IV SCH ×2 (02:25→16:22)
[2016-09-17] MEDS: DESMOPRESSIN IV SCH ×2 (02:25→16:22)
--- NOTE | 2016-09-17 03:45 | NUR ---
Positioning/Mentation/Fever Per protocol, pt kept flat until 2129, then resumed [id number] and elevated head. Mepalex changed on sacrum. Fever continues; cool wet washrags on forehead, hands, and chest applied by family and encouraged sheet off the feet to cool him. With turns he is groaning and opening eyes when entering the room, making eye contact and saying hello.
--- NOTE | 2016-09-17 10:34 | PROG NOTE ---
[address] [address] PROGRESS NOTE PATIENT: SANDY SOSA : 1975 MR#: [id number] ADMIT: 08/23/2016 JOB ID: [id number] DATE: 09/17/2016 INFECTIOUS DISEASE FOLLOWUP NOTE: REASON FOR FOLLOWUP: Severe anoxic brain injury and sustained fevers. INTERVAL HISTORY: There has been obvious concern over the last several days that the patient's fevers, which had improved with his initial treatment for aspiration pneumonia after his admission 25 days ago, have returned and he is now spiking ongoing fevers. This has been association with a very abnormal mental status in which the patient is obtunded for extremely long periods of time only to wake up and answer, in one or two word replies, questions appropriately. He remains basically unable to move any of his extremities and is completely dependent on others for all care. Over the past couple of days, additional studies have been done including additional imaging studies, and he has been seen by Neurology. Dr. Jara noted that he seemed to improve following his anoxic injury and now has actually declined in that he has less awake and can no longer move his extremities but she is also concerned, of course, about his ongoing fevers and yesterday, I spoke to her and she was concerned about the possibility of a new or ongoing [place] [employer] infection which led to a lumbar puncture done yesterday. This did not show any evidence of meningitis, as he had only one white cell, and the PCR panel was negative. Dr. Jara was specifically concerned during our conversation yesterday about the possibility of a drug-induced vasculitis or encephalitis. This morning I evaluated the patient with his present. The patient's eyes were wide open and he was watching TV. The patient's told me that he specifically noted that one of the musical groups they were watching on the [employer] TV channel had included some new members he had not seen before which was accurate. While I was in the room his asked him a few questions such as how he is feeling, and he answered with one to two word replies but these answers were, in fact, accurate suggesting he is awake, able to process information and is aware of her surroundings. Despite this, he remains completely flaccid and unable to move his extremities. PHYSICAL EXAMINATION: Reveals an awake gentleman who is steadily watching the TV and does not interact much but does answer questions with one or two word responses. His temperature max in the last 24 hours is 39.1 yesterday afternoon. It is currently 36.9. His pulse 90, respiratory rate 16, blood pressure 127/82, and he is saturating well on room air. He does not appear to be in distress though it is, of course, very difficult to tell. His neck is entirely supple. His eyes without conjunctivitis or scleral icterus. His eyes track normally, and extraocular movements are intact. He has a feeding tube in the nose, as he is not eating but otherwise, no supplemental oxygen or other devices. His oral cavity is unremarkable. Neck without adenopathy. Lungs fairly clear bilaterally. Cardiac tones: Regular rate and rhythm without murmur. His abdomen is benign. Penis and scrotum appear normal. He still has a Espinoza in place. I examined his backside in conjunction with Wound Management. The shallow decubitus ulcers, which had been present between his scapulae, as well as the deeper excoriations and lesions around his buttocks, have completely healed. A fecal management tube is present and draining liquid stool. There are no other sites of skin breakdown. LABORATORY STUDIES: Include white count yesterday 10,000 with normal diff. Sed rate 63, creatinine is 0.95. CRP 1.6. A couple of weeks ago it was 2.1, so still slightly elevated. Serologies including QuantiFERON Gold and HIV were previously done and were negative. Micro includes about 20 blood cultures, all negative. MRSA screen negative. Sputum negative. C. diff negative. Yesterday, CSF with 1 white cell, and PCR negative for herpes simplex, as well as all the other tested pathogens on the [facility] CSF panel. The MRI scan done within the past 24 hours shows continued worsening of what the radiologist believe is ischemic injury, which is symmetrical, bilateral and best seen in the deep white matter in the lentiform nuclei, as well as the wolfe radiata and the centrum semiovale. A CT angio showed worsening patchy white matter disease, and the radiologist specifically said no changes to indicate infarction are seen. A chest x-ray done five days ago showed some left-sided consolidation. IMPRESSION: This is a very confusing case on many levels. We have attributed his prolonged anoxic event to the combined effects of cocaine, which was found in the ER tox screen, and heavy alcohol use. This would seem to be a reasonable explanation, though Dr. Jara has brought up the possibility of encephalitis. His cerebral spinal fluid lacking any white cells and having a negative PCR would argue against many causes of encephalitis but it is probably worth checking a few others including some remote possibilities such as syphilis, West Nile fever, anti-NMDAR, bartonella and mycoplasma. I do not feel any of these are especially likely. In addition, we need to explain his fevers. Certainly one possibility is that these are central fevers due to brain anoxia. Other possibilities here could include, of course, pulmonary infection, sinusitis with his NG tube is present, hepatitis, pancreatitis or deep venous thrombosis. RECOMMENDATIONS: 1. Will check appropriate serologies for anti-NMDAR, West Nile fever, syphilis, bartonella, and a PCR for mycoplasma. 2. Chest x-ray will be ordered today. 3. We may need to consider a CT of the sinuses if his fevers continue. 4. LFT and lipase will be ordered today. 5. I do not see any indication for antibiotics in this nontoxic appearing patient.
[2016-09-17] MEDS: Thiamine Inj 200 MG in Dextrose 5% 50 ML IV SCH (11:18)
[2016-09-17] MEDS: AMANTADINE 10 MG/ML TUBE SCH (11:18)
--- NOTE | 2016-09-17 11:55 | NUR ---
Inpatient Wound Nurse Patient is seen by [facility] RN in follow up for wounds over bilateral buttocks. Wounds have healed and no drainage is observed. A small area of dried crust is noted at proximal intergluteal space but no drainage or ulceration is observed. White Mepilex sheet foam is no longer indicated, and nursing staff may use bordered Mepilex if any new openings are found. Clear, silicone based barrier ointment, such as CriticAid Clear, should be adequate protection, as skin is not exposed to urine or feces with Espinoza and FCS in place. [facility] will no longer follow unless new, specific wounds are identified.
--- NOTE | 2016-09-17 13:15 | NUR ---
NUTRITION FOLLOW UP: ASSESS: 41 YO male with anoxic brain injury, continues to be alert but non-verbal. JUWAN has resolved. Nephrology will likely sign off but wants to continue 350 ML H2O flush every 4 hours to match ins/outs. MBS is on hold until pt is more appropriate. Pt will likely require PEG tube placement. PMHx: ETOH abuse. DIET: NPO. NUTRITION SUPPORT: Jevity 1.5 at goal rate of 70 ML/hr, 350 ML H20 flush every 4 hours providing 2415 kcals, 103 g protein, 3324 ml free H2O. LABS: Reviewed. Na 145, Glu 126. MEDICATIONS: Reviewed. GI: FMS in place: 250 mL output (09/16) SKIN: Wounds healed per wound care note. ANTHROPOMETRICS: Current Wt: 87.3 kg. Admit wt: 95.1 kg. IBW: 72.7 kg ESTIMATED NEEDS: Calories: 3485-1762 kcal/day (25-30 kcal/kg BW) Protein: 85-110 g protein (1.2-1.5 g/kg BW IBW) Fluid: Approx. ~9845-1046 mL (25-35 mL/kg BW) but fluids per nephrology at this time. NUTRITION DIAGNOSIS: 1) Inadequate oral intake related to inability to consume sufficient energy due to cognition, as evidenced by NPO status - IMPROVED, PT TF AT GOAL. 2) Increased nutrient needs related to increased needs for disease state as evidenced by JUWAN and current skin issues - RESOLVED INTERVENTION: 1) Recommend continuing current TF at this time. 2.) Fluids per nephrology--350 ml every 4 hrs. MONITOR/EVALUATE: Enteral feeding, labs, weights, MBS, nutrition status. Follow per high nutrition risk guidelines.
--- NOTE | 2016-09-17 13:42 | DRSVH ---
PROCEDURE: X-RAY CHEST ONE VIEW, PORTABLE ([id number]) INDICATIONS: high fevers, previous aspiration TECHNIQUE: One view of the chest was acquired. COMPARISON: [facility], CT, CT ANGIO BRAIN, 09/16/2016, 17:48. [facility], C R, XR CHEST 1VW (PORTABLE), 09/12/2016, 16:16. FINDINGS: Surgical changes and devices: Nasogastric tube present tip extending beyond the GE junction. Stable position of right PICC.. Lungs and pleura: No pleural effusions or pneumothorax. Lungs are clear, aside from left basilar co nsolidation.. Mediastinum: Mediastinal contours appear normal. Heart size is normal. Bones and chest wall: No suspicious bony lesions. Overlying soft tissues appear unremarkable. IMPRESSION: Persistent left basilar consolidation consistent with atelectasis versus aspiration or pn eumonia. Dictated by: Juma Martinez A Interpreted: Jack Padilla MD on 09/17/2016 at 11:59 Approved by: Jack Padilla M.D. on 09/17/2016 at 13:39
--- NOTE | 2016-09-17 14:25 | PROG NOTE ---
[address] [address] PROGRESS NOTE PATIENT: SANDY SOSA : 1975 MR#: [id number] ADMIT: 08/23/2016 JOB ID: [id number] DATE: 09/17/2016 NEUROLOGY PROGRESS NOTE: REQUESTING PHYSICIAN: Macario Abdalla MD for anoxic injury. SUBJECTIVE: The patient is a 41-year-old gentleman with [id number] collapse and subsequent anoxic injury. Imaging studies initially showed globus pallidus involvement and the 1st MRI some diffusion weighted changes. The 1st MRI was completed on August 28, 2016. The 2nd MRI, completed on September 15, 2016, showed diffuse white matter and rodriguez matter changes. Concern for vasculitis or infection has been entertained. The LP shows no significant abnormalities, with only one white cell and 61 red cells. Glucose was normal as was protein at 72 and 19, respectively. I reviewed the case and imaging with Dr. Arnold Shaw at [facility] via [facility]. After reviewing these images, he believes that the MRIs are more consistent with the late sequelae of anoxic injury and possible toxin injury to the globus pallidus. The evidence of ischemia in the watershed areas is more consistent with anoxic injury. The lack of pleocytosis speaks against vasculitis; 95% of vasculitis patients will have pleocytosis in the CSF. He did, however, suggest that if symptoms worsen or fluctuate considerably, reassessment could be made. The patient has been speaking to his , which shows flaccid paralysis. OBJECTIVE: Vital signs: Temperature 38.1, respiratory rate 20, pulse 89, blood pressure 121/76, pulse oximetry 96 on room air. Head: Normocephalic, atraumatic. No evidence of carotid bruits. Lungs: Clear to auscultation. Cardiac: Regular rate and rhythm. NG tube in place. Edema in the extremities. NEUROLOGIC EXAMINATION: The patient is alert and makes eye contact. He whispers but clearly forms sentences. He minimally follows commands. Cranial nerves: Pupils are equally reactive to light and accommodation. Extraocular movements intact. Facial asymmetry cannot be determined. Cranial nerves appear to be intact otherwise. Motor: Flaccid paralysis. Deep tendon reflexes trace throughout, with plantar reflex flexor. Tone: Flaccid. Sensation: Minimal reaction to pain. ASSESSMENT AND RECOMMENDATION: The patient is a 41-year-old gentleman with [id number] cardiopulmonary arrest with synthetic cocaine noted in his system as well as alcohol. I greatly appreciate the insight from Dr. Lopez with consideration of alternative causes for the patient's encephalopathy. After reviewing the imaging studies and the case with Dr. Shaw at [facility], his MRI findings and clinical examination are more consistent with anoxic injury and toxic injury than they are with infectious etiology. Dr. Shaw further did not believe it would be fruitful or expedient for him to be transferred to [facility] for a four-vessel conventional angiography. I appreciate Dr. Lopez's input and will look forward to the results of his testing. I discussed the case with Dr. Abdalla, who would like to do an empiric trial of steroids. Before doing so, I recommend discussing the implication of steroids with Dr. Lopez. As discussed, 1 mg/kg methylprednisone daily for a maximum of 80 mg daily for three days should be sufficient to look for improvement. The findings and recommendations were discussed with the patient's through the mechanical planner. Over half of this 40 minute evaluation was spent reviewing results, in counseling with the patient's family, and coordinating care with [facility] and the patient's family. AUBREY
--- NOTE | 2016-09-17 14:31 | PCM.PNMED ---
Subjective Date of Service Sep 17, 2016 Subjective Unable to obtain ROS 2ndry to being nonverbal and not interactive Exam Vital Signs Vital Sign - Last Date Time Temp Pulse Resp B/P Pulse Ox O2 Delivery O2 Flow Rate FiO2 09/17/16 10:00 38.1 89 20 121/75 96 Room Air Intake and Output 09/16/16 09/16/16 09/17/16 Cumulative From/Thru 15:00 23:00 07:00 08/23/16 05:20 - 09/17/16 06:15 Intake Total 1020 ml 1828 ml 46600 ml Output Total 1450 ml 1850 ml 40691 ml Balance -430 ml -22 ml 5754 ml Intake Oral 0 ml 560 ml IV Total 180 ml 54 ml 91000 ml Tube Feeding 840 ml 724 ml 04000 ml Tube Irrigant 1050 ml 53233 ml Output Urine Total 1200 ml 1850 ml 92591 ml Stool Total 250 ml 9765 ml Gastric Drainage Total 1070 ml Ultrafiltrate 4700 ml # Bowel Movements 11 Exam He is awake. Much more alert than past couple of days. He seems to say hello, and goodbye and seems more responsive although still minimally verbal and otherwise appearing paralyzed. General: No Acute Distress Head: Normal Eyes: Scleral Anicteric Nose: Mucous Membr Moist/[place] Mouth: Mucous Membr Moist/[place] Neck: Supple Chest & Lungs: Chest Wall Normal, Clear to auscultation bilat Cardiovascular: Regular Rate/Rhythm Pulses: NL DP, PT Extremities: No cyanosis/clubbing/edema bilat Neurological: Other (limited exam 2ndry to patient not following any commands) IVs and Medications Medications Reviewed: Medications were reviewed in detail Lab and Diagnostics Result Diagram: 09/16/16 1618 09/16/16 0500 Microbiology Blood cultures pending MRSA swab pending X-Rays, CTs and MRIs CT BRAIN WITHOUT CONTRAST IMPRESSION: No acute disease. Dictated by: Hemant Gallegos M.D. on 08/23/2016 CT BRAIN WITHOUT CONTRAST IMPRESSION: 1. Diffuse bilateral hypodensity of the globus pallidus. This is a new finding when compared with the study dated 08/23/16. Differential considerations include anoxic injury, carbon monoxide neurotoxicity, excessive alcohol ingestion, and methanol or ethylene glycol ingestion. Dictated by: Dinora Kang M.D. 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 Dictated by: Jacob Mosqueda M.D. on 08/28/2016 MRI STROKE PROTOCOL IMPRESSION: BRAIN MRI: Continued worsening of ischemic injury to the brain parenchyma, symmetric bilaterally, and best seen in the deep white matter of the lentiform nuclei, the wolfe radiata, and the centrum semiovale. No associated hemorrhage. BRAIN MR ANGIOGRAM: No acute disease to the intracranial arterial vasculature. NECK MR ANGIOGRAM: Normal cervical MR angiogram. The estimate of stenosis included in the report of the imaging study was calculated using the NASCET method Dictated by: Jack Padilla M.D. on 09/15/2016 CT CHEST WITHOUT CONTRAST IMPRESSION: Small basal left pleural effusion is unchanged, with associated left lower lobe compressive atelectasis. Superimposed pneumonia therefore cannot be excluded. Dictated by: Binh Ochoa M.D. on 09/07/2016 at 13:47 US RENAL SONOGRAM IMPRESSION: No hydronephrosis. Right renal cyst. Dictated by: Shobha Vale M.D. on 08/24/2016 US ABDOMEN, LIMITED IMPRESSION: Cholelithiasis, without justin gallbladder wall thickening to suggest acute cholecystitis at this time. Dictated by: Binh Ochoa M.D. on 09/07/2016 MR ABDOMEN MRCP IMPRESSION: 1. Markedly limited study due to motion artifact. 2. Cholelithiasis without evidence of cholecystitis. 3. No biliary ductal dilatation or definite choledocholithiasis. 4. No peripancreatic edema to suggest pancreatitis an MRI. No discrete pseudocyst identified. Dictated by: Bruce Valadez M.D. on 09/08/2016 at 17:47 US ABDOMEN IMPRESSION: 1. Cholelithiasis. 2. Mild gallbladder wall thickening. Acute cholecystitis cannot be excluded. 3. Echogenic liver. Finding typically represents fatty infiltration; however, finding is nonspecific and correlation with clinical and laboratory findings is recommended to exclude other etiologies including hepatic cirrhosis. 4. Slightly echogenic right kidney suspicious for developing medical renal disease. Please correlate with clinical and laboratory data. Dictated by: Swathi Jimenes MD, PhD on 08/29/2016 US ABDOMEN, LIMITED IMPRESSION: Cholelithiasis, without justin gallbladder wall thickening to suggest acute cholecystitis at this time. Dictated by: Binh Ochoa M.D. on 09/07/2016 X-RAY CHEST ONE VIEW, PORTABLE IMPRESSION: No acute disease is seen a semiupright portable chest. Tubes are considered appropriate radiographically. Dictated by: Hemant Gallegos M.D. on 08/23/2016 X-RAY CHEST ONE VIEW, PORTABLE IMPRESSION: Support lines as above. Otherwise, no acute pulmonary process. Dictated by: Shobha Vale M.D. on 08/24/2016 X-RAY CHEST ONE VIEW, PORTABLE IMPRESSION: No acute cardiopulmonary disease process. Dictated by: Swathi Jimenes MD, PhD on 08/25/2016 X-RAY CHEST ONE VIEW, PORTABLE IMPRESSION: 1. Left basilar atelectasis. Otherwise lungs are clear. 2. ET and enteric tubes. Dictated by: Jacob Mosqueda M.D. on 08/27/2016 at 9:53 X-RAY CHEST ONE VIEW, PORTABLE IMPRESSION: Stable left basilar atelectasis and support lines. Dictated by: Jacob Mosqueda M.D. on 08/28/2016 at 7:54 Date of Service: 09/15/16 1757 PROCEDURE: MRI STROKE PROTOCOL ([id number]) IMPRESSION: BRAIN MRI: Continued worsening of ischemic injury to the brain parenchyma, symmetric bilaterally, and best seen in the deep white matter of the lentiform nuclei, the wolfe radiata, and the centrum semiovale. No associated hemorrhage. BRAIN MR ANGIOGRAM: No acute disease to the intracranial arterial vasculature. NECK MR ANGIOGRAM: Normal cervical MR angiogram. The estimate of stenosis included in the report of the imaging study was calculated using the NASCET method Dictated by: Jack Padilla M.D. on 09/15/2016 at 21:36 Approved by: Jack Padilla M.D. on 09/15/2016 at 21:42 Additional Diagnostics ABG DateTimeAnalyzed 10:20:00 -_ pH ____7.354 - 7.350 7.450 pCO2 ___31.5__ -mmHg 35.0 45.0 pO2 160 -mmHg 69.0 116 HCO3- ___17.1__ -mmol/L 22.0 26.0 FIO2 ___45.0__ -% PRVC 20 - PEEP ____8.0__ -cmH2O Assessment & Plan 41 year old male with known history of alcohol and drug use presented unresponsive after being found with vomit around him, sedated and intubated for acute hypoxemic respiratory failure secondary to aspiration for 5 days and extubated on hospital day 6 following successful spontaneous breathing trial. # Acute Brain Injury, present on admission. Ongoing and worsening - Strongly suspected anoxic brain injury given presenting history - Secondary to aspiration and intoxication. Patient had large volume of vomit suctioned out in the ED. - Initial EEG showed evidence of slowing but no other abnormalities to suggest that the patient is having clinical seizures causing his symptoms. - Intubated on 08/23/16, Extubated on 08/28/16. - Zosyn was given for 7 days earlier in the hospital course but was stopped per ID recommendation. - Patient with reported neurologic deterioration few days after extubation and transfer out of ICU - Repeat MRI of brain on 09/15/16 showing: "Continued worsening of ischemic injury to the brain parenchyma, symmetric bilaterally" - Discussed new MRI findings with neuro consult. ? if these findings due to underlying vasculitis, infection or other etiology - Post LP and CTA brain on 09/16/16. - Appreciate neurology consult. Will followup with recs - Above studies and findings were discussed with neuro consult (Dr. Jara) who has also reviewed these findings with [facility] neurology. - Anoxic brain injury and its progression is still high on list of differential. However, given no obvious source of infection and remote likelihood of vasculitis, per discussion with Dr. Jara we are going to do a trial of steroid therapy to see if we will achieve any significant improvement in neuro symptoms. # Acute dysphagia. Likely due to anoxic brain injury noted above. Present on admission. - Per earlier notes: "After Family meeting on 09/13, has requested MBS attempted again and would like to be present." - Pt failed MBS on 09/15 due to inability to fully follow instructions. - Continue with Ngtube feed and hold PEG placement until above workup complete and determine if neuro changes can be reversible. - Palliative was following but signed off, will need to reconsult if PEG is decision. # Acute fevers, not present on admission. ongoing - Appreciate ID consult. Will followup with recs - Per ID consult, fevers thought to be likely due to central etiology. - Initially though due to Pancreatitis or Cholecystitis. UA is negative - Completed course of Ertapenem. - MRCP did not show further evidence of Pancreatitis or Cholecystitis. - Blood cultures are so far negative. - LFTs and lipase are slowly improving. - Vasculitis workup and LP as noted above # Mild acute hypernatremia, not present on admission, active. - Appreciate nephrology consult. Will followup with recs # Acute Kidney Injury, present on admission. Resolved - Cr on admission at 3.52 and increasing after admission. Unknown history of kidney injury. - Appreciate nephrology consult. Will followup with recs - Hemodialysis done daily starting 08/25/16 and then stopped. No longer on hemodialysis and catheter removed - Free water flushes 300 ml q 4 hr. - Continue DDAVP. # Acute Cholecystitis, present on admission. Resolved - Acute cholecystitis based on HIDA scan and abdominal CT. - Gen. surgery was consulted, Dr. Dash as intial thought of CCK. Upon follow up MRCP was negative for Acute Pancreatitis and Chronic cholecystitis. - Resolved cholelithiasis w/o choledocholithiasis. - No surgery indicated at this time given improvement. - TPN stopped on 09/06/16 as this was thought to be worsening cholecystitis and pancreatitis. # Acute Metabolic Acidosis, present on admission. Improved - Likely secondary to lactic acidosis and uremia - Monitor CMP: # Acute Rhabdomyolysis, present on admission, [place] [id number]. Likely secondary to being in one position for 9 hours. - Wound care consult # Acute Hyperkalemia, present on admission, resolved - Kayexalate via feeding tube was given per nephro on 09/07 - Continue to monitor # Acute stage II ulcers in the buttock areas, present on admission. - Continue with wound care and supportive care # History of alcohol dependence - No need to institute CIWA protocol at this time # History of drug dependence - Known user of cocaine and ice - Per family, last known use is around 5 months ago. Dispo: pending goals of care, further swallow eval, and likely placement GI Prophylaxis: Not indicated (Patient extubated) VTE Prophylaxis: Sub-Q Heparin (Unfractionated), SCDs VTE Mechanical Devices: Intermittant Pneumatic CD Resuscitation Status: CPR: Attempt Resuscitation ( is ADM) Macario Abdalla Sep 17, 2016 14:31
--- NOTE | 2016-09-17 15:26 | NUR ---
Skin improvement/OOB/Neuro update Pt no longer requires sacral dressing per wound care nurse, and they are going to sign off because of such good improvement. Pt got OOB using ann lift to chair w/ pt and is tolerating being in the chair well. Pt mother was updated by dr sanchez regarding pts likely unresolving damage, mother is going to pass this info on to pt and dr sanchez will come again tomorrow to f/u hopefully catch the while she's here.
[2016-09-17 16:01] LABS: Bilirubin, Direct < 0.2 mg/dL (0.0-0.3)
[2016-09-17 16:07] LABS: Lipase 368 U/L (13-60)
[2016-09-17] MEDS: predniSONE 20 mg Tablet PO SCH (16:22)
[2016-09-18] VITALS (8 sets, daily range): BP systolic 121–144; BP diastolic 74–83; PULSE 93–104; RESP 14–20; O2SAT 96–97
[2016-09-18] MEDS: Heparin 5,000 Unit/mL Inj SUBQ SCH ×3 (00:17→16:27)
[2016-09-18] MEDS ORDERED: 0.9% Sodium Chloride 100 ML ONE (02:52)
[2016-09-18] MEDS: DESMOPRESSIN IV SCH ×2 (02:58→15:11)
[2016-09-18] MEDS: SODIUM CHLORIDE 0.9% IV SCH ×2 (02:58→15:11)
--- NOTE | 2016-09-18 04:19 | NUR ---
CARE/FAMILY Continuing q2h turns per pressure ulcer protocol, frequent oral care, cool washcloths to body and head, passive ROM, frequent skin checks. Pt wakes up and makes eye contact with every point of care. When extended family visited, pt able to make eye contact with family and spoke a few words, unable to tell if what pt said made sense. Pt continues to be completely flaccid in all extremities. Jevity 1.5 at 70/hr with 350ml water flush--tubing changed at 0200 09/18/16. Tried to aspirate contents, unable to, only suction upon withdrawal, though easily flushes with air and water. Will continue to assess and retry with positioning. Pt appears to be tolerating tube feeding well, HOB at 30 degrees.
[2016-09-18] MEDS: Acetaminophen 32.5 mg/mL 20 mL Liquid PO PRN (06:25)
[2016-09-18] MEDS: AMANTADINE 10 MG/ML TUBE SCH (08:37)
[2016-09-18] MEDS: Thiamine Inj 200 MG in Dextrose 5% 50 ML IV SCH (08:37)
[2016-09-18] MEDS: predniSONE 20 mg Tablet PO SCH (08:45)
--- NOTE | 2016-09-18 12:23 | PROG NOTE ---
[address] [address] PROGRESS NOTE PATIENT: SANDY SOSA : 1975 MR#: [id number] ADMIT: 08/23/2016 JOB ID: [id number] DATE: 09/18/2016 INFECTIOUS DISEASE FOLLOWUP NOTE: REASON FOR FOLLOWUP: Anoxic brain injury with subsequent fever. INTERVAL HISTORY: During the past 24 hours the patient has been intermittently quite awake and has been able to answer questions with short answers that are appropriate and even to initiate conversation on a couple of occasions. At other periods the patient is completely lethargic and almost unarousable. Much of his time he appears to be in some sort of sleep or semi-comatose state. At no point does he move his extremities. This case was reviewed at the bedside with the patient's present as well as Dr. Abdalla of the internal medicine service. PHYSICAL EXAMINATION: This morning the patient has open eyes but is not speaking. His temperature was 38.2 just a couple of hours ago. Pulse in the 90s, respiratory rate 20, blood pressure 138/81, and he is saturating well on room air. His temperature was as high as 38.5 yesterday afternoon. His eyes are without conjunctivitis. Lungs clear. Cardiac tones without new murmur. PICC line right upper extremity benign. Abdomen benign. LABORATORIES: Include white count stable at 10,500 and not repeated for the last two days. Yesterday we do have liver function tests. ALT 127, lipase 368, so modestly increased. RPR is negative. Bartonella serologies are pending. NMDA receptor antibody is pending. West Nile antibody pending. Fungitell has come back negative. QuantiFERON gold was previously done and was negative. Recent CSF PCR studies negative and there was no CSF pleocytosis. A chest x-ray done yesterday showed left basilar consolidation. IMPRESSION: This patient continues to have unexplained fevers. This is in the setting of prolonged anoxia caused by a combination of cocaine and apparently heavy alcohol use. Dr. Jara has been worried about the possibility of infectious or noninfectious encephalitis and for that reason we obtained spinal fluid which was essentially negative. We also have some serologies and studies pending for Bartonella, the anti-NMDA receptor, and mycoplasma. These all seem especially unlikely and I think his fevers are likely on the basis of brain anoxia. Residual pulmonary infection could, of course, produce the same picture. RECOMMENDATIONS: 1. We await the pending serologies. 2. If his fevers continue we may consider a CT scan of the chest and sinuses. 3. The patient does have mild LFT elevation as well as a mildly increased lipase and I think it is reasonable to get an ultrasound of the right upper quadrant, which I will order today. 4. No antibiotics. 5. I see no objection to a trial of steroids which Dr. Jara and Dr. Abdalla are proposing for treatment of a possible [employer] vasculitis. Thank you very much.
--- NOTE | 2016-09-18 14:03 | PCM.PNMED ---
Subjective Date of Service Sep 18, 2016 Subjective Unable to obtain ROS 2ndry to being nonverbal and not interactive Exam Vital Signs Vital Sign - Last Date Time Temp Pulse Resp B/P Pulse Ox O2 Delivery O2 Flow Rate FiO2 09/18/16 09:51 94 09/18/16 08:56 38.1 20 138/81 96 Room Air Intake and Output 09/17/16 09/17/16 09/18/16 Cumulative From/Thru 15:00 23:00 07:00 08/23/16 05:20 - 09/18/16 06:16 Intake Total 289 ml 1278 ml 44347 ml Output Total 2200 ml 1300 ml 10226 ml Balance -1911 ml -22 ml 3821 ml Intake Oral 0 ml 560 ml IV Total 289 ml 73 ml 86518 ml Tube Feeding 770 ml 70262 ml Tube Irrigant 435 ml 59647 ml Output Urine Total 1400 ml 1300 ml 66420 ml Stool Total 800 ml 20361 ml Gastric Drainage Total 1070 ml Ultrafiltrate 4700 ml # Bowel Movements 11 Exam General: No Acute Distress Head: Normal Eyes: Scleral Anicteric Nose: Mucous Membr Moist/[place] Mouth: Mucous Membr Moist/[place] Neck: Supple Chest & Lungs: Chest Wall Normal, Clear to auscultation bilat Cardiovascular: Regular Rate/Rhythm Pulses: NL DP, PT Extremities: No cyanosis/clubbing/edema bilat Neurological: Other (limited exam 2ndry to patient not following any commands) IVs and Medications Medications Reviewed: Medications were reviewed in detail Lab and Diagnostics Result Diagram: 09/16/16 1618 09/16/16 0500 Microbiology Blood cultures pending MRSA swab pending X-Rays, CTs and MRIs CT BRAIN WITHOUT CONTRAST IMPRESSION: No acute disease. Dictated by: Hemant Gallegos M.D. on 08/23/2016 CT BRAIN WITHOUT CONTRAST IMPRESSION: 1. Diffuse bilateral hypodensity of the globus pallidus. This is a new finding when compared with the study dated 08/23/16. Differential considerations include anoxic injury, carbon monoxide neurotoxicity, excessive alcohol ingestion, and methanol or ethylene glycol ingestion. Dictated by: Dinora Kang M.D. 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 Dictated by: Jacob Mosqueda M.D. on 08/28/2016 MRI STROKE PROTOCOL IMPRESSION: BRAIN MRI: Continued worsening of ischemic injury to the brain parenchyma, symmetric bilaterally, and best seen in the deep white matter of the lentiform nuclei, the wolfe radiata, and the centrum semiovale. No associated hemorrhage. BRAIN MR ANGIOGRAM: No acute disease to the intracranial arterial vasculature. NECK MR ANGIOGRAM: Normal cervical MR angiogram. The estimate of stenosis included in the report of the imaging study was calculated using the NASCET method Dictated by: Jack Padilla M.D. on 09/15/2016 CT CHEST WITHOUT CONTRAST IMPRESSION: Small basal left pleural effusion is unchanged, with associated left lower lobe compressive atelectasis. Superimposed pneumonia therefore cannot be excluded. Dictated by: Binh Ochoa M.D. on 09/07/2016 at 13:47 US RENAL SONOGRAM IMPRESSION: No hydronephrosis. Right renal cyst. Dictated by: Shobha Vale M.D. on 08/24/2016 US ABDOMEN, LIMITED IMPRESSION: Cholelithiasis, without justin gallbladder wall thickening to suggest acute cholecystitis at this time. Dictated by: Binh Ochoa M.D. on 09/07/2016 MR ABDOMEN MRCP IMPRESSION: 1. Markedly limited study due to motion artifact. 2. Cholelithiasis without evidence of cholecystitis. 3. No biliary ductal dilatation or definite choledocholithiasis. 4. No peripancreatic edema to suggest pancreatitis an MRI. No discrete pseudocyst identified. Dictated by: Bruce Valadez M.D. on 09/08/2016 at 17:47 US ABDOMEN IMPRESSION: 1. Cholelithiasis. 2. Mild gallbladder wall thickening. Acute cholecystitis cannot be excluded. 3. Echogenic liver. Finding typically represents fatty infiltration; however, finding is nonspecific and correlation with clinical and laboratory findings is recommended to exclude other etiologies including hepatic cirrhosis. 4. Slightly echogenic right kidney suspicious for developing medical renal disease. Please correlate with clinical and laboratory data. Dictated by: Swathi Jimenes MD, PhD on 08/29/2016 US ABDOMEN, LIMITED IMPRESSION: Cholelithiasis, without justin gallbladder wall thickening to suggest acute cholecystitis at this time. Dictated by: Binh Ochoa M.D. on 09/07/2016 X-RAY CHEST ONE VIEW, PORTABLE IMPRESSION: No acute disease is seen a semiupright portable chest. Tubes are considered appropriate radiographically. Dictated by: Hemant Gallegos M.D. on 08/23/2016 X-RAY CHEST ONE VIEW, PORTABLE IMPRESSION: Support lines as above. Otherwise, no acute pulmonary process. Dictated by: Shobha Vale M.D. on 08/24/2016 X-RAY CHEST ONE VIEW, PORTABLE IMPRESSION: No acute cardiopulmonary disease process. Dictated by: Swathi Jimenes MD, PhD on 08/25/2016 X-RAY CHEST ONE VIEW, PORTABLE IMPRESSION: 1. Left basilar atelectasis. Otherwise lungs are clear. 2. ET and enteric tubes. Dictated by: Jacob Mosqueda M.D. on 08/27/2016 at 9:53 X-RAY CHEST ONE VIEW, PORTABLE IMPRESSION: Stable left basilar atelectasis and support lines. Dictated by: Jacob Mosqueda M.D. on 08/28/2016 at 7:54 Date of Service: 09/15/16 1757 PROCEDURE: MRI STROKE PROTOCOL ([id number]) IMPRESSION: BRAIN MRI: Continued worsening of ischemic injury to the brain parenchyma, symmetric bilaterally, and best seen in the deep white matter of the lentiform nuclei, the wolfe radiata, and the centrum semiovale. No associated hemorrhage. BRAIN MR ANGIOGRAM: No acute disease to the intracranial arterial vasculature. NECK MR ANGIOGRAM: Normal cervical MR angiogram. The estimate of stenosis included in the report of the imaging study was calculated using the NASCET method Dictated by: Jack Padilla M.D. on 09/15/2016 at 21:36 Approved by: Jack Padilla M.D. on 09/15/2016 at 21:42 Additional Diagnostics ABG DateTimeAnalyzed 10:20:00 -_ pH ____7.354 - 7.350 7.450 pCO2 ___31.5__ -mmHg 35.0 45.0 pO2 160 -mmHg 69.0 116 HCO3- ___17.1__ -mmol/L 22.0 26.0 FIO2 ___45.0__ -% PRVC 20 - PEEP ____8.0__ -cmH2O Assessment & Plan 41 year old male with known history of alcohol and drug use presented unresponsive after being found with vomit around him, sedated and intubated for acute hypoxemic respiratory failure secondary to aspiration for 5 days and extubated on hospital day 6 following successful spontaneous breathing trial. # Acute Brain Injury, present on admission. Ongoing and worsening - Strongly suspected anoxic brain injury given presenting history - Secondary to aspiration and intoxication. Patient had large volume of vomit suctioned out in the ED. - Initial EEG showed evidence of slowing but no other abnormalities to suggest that the patient is having clinical seizures causing his symptoms. - Intubated on 08/23/16, Extubated on 08/28/16. - Zosyn was given for 7 days earlier in the hospital course but was stopped per ID recommendation. - Patient with reported neurologic deterioration few days after extubation and transfer out of ICU - Repeat MRI of brain on 09/15/16 showing: "Continued worsening of ischemic injury to the brain parenchyma, symmetric bilaterally" - Discussed new MRI findings with neuro consult. ? if these findings due to underlying vasculitis, infection or other etiology - Post LP and CTA brain on 09/16/16. - Appreciate neurology consult. Will followup with recs - Above studies and findings were discussed with neuro consult (Dr. Jara) on 09/17/16 who also reviewed these findings with [facility]. - Anoxic brain injury and its progression is still high on list of differential. However, given no obvious source of infection and remote likelihood of vasculitis, per discussion with Dr. Jara started a trial of steroid therapy (Prednisone 80mg daily x 3 days) on 09/17/16 to see if we will achieve any significant improvement in neuro symptoms. # Acute fevers, not present on admission. ongoing - Appreciate ID consult. Will followup with recs - Per ID consult, fevers thought to be likely due to central etiology. - Initially though due to Pancreatitis or Cholecystitis. UA is negative - Completed course of Ertapenem. - MRCP did not show further evidence of Pancreatitis or Cholecystitis. - Blood cultures are so far negative. - Vasculitis workup and LP as noted above # Acute dysphagia. Likely due to anoxic brain injury noted above. Present on admission. - Per earlier notes: "After Family meeting on 09/13, has requested MBS attempted again and would like to be present." - Pt failed MBS on 09/15 due to inability to fully follow instructions. - Continue with Ngtube feed and hold PEG placement until above workup complete and determine if neuro changes can be reversible. - Palliative was following but signed off, will need to reconsult if PEG is decision. # Mild acute hypernatremia, not present on admission, active. - Appreciate nephrology consult. Will followup with recs # Acute Kidney Injury, present on admission. Resolved - Cr on admission at 3.52 and increasing after admission. Unknown history of kidney injury. - Appreciate nephrology consult. Will followup with recs - Hemodialysis done daily starting 08/25/16 and then stopped. No longer on hemodialysis and catheter removed - Free water flushes 300 ml q 4 hr. - Continue DDAVP. # Acute Cholecystitis, present on admission. Resolved - Acute cholecystitis based on HIDA scan and abdominal CT. - Gen. surgery was consulted, Dr. Dash as intial thought of CCK. Upon follow up MRCP was negative for Acute Pancreatitis and Chronic cholecystitis. - Resolved cholelithiasis w/o choledocholithiasis. - No surgery indicated at this time given improvement. - TPN stopped on 09/06/16 as this was thought to be worsening cholecystitis and pancreatitis. # Acute Metabolic Acidosis, present on admission. Improved - Likely secondary to lactic acidosis and uremia - Monitor CMP: # Acute Rhabdomyolysis, present on admission, [place] [id number]. Likely secondary to being in one position for 9 hours. - Wound care consult # Acute Hyperkalemia, present on admission, resolved - Kayexalate via feeding tube was given per nephro on 09/07 - Continue to monitor # Acute stage II ulcers in the buttock areas, present on admission. - Continue with wound care and supportive care # History of alcohol dependence - No need to institute CIWA protocol at this time # History of drug dependence - Known user of cocaine and ice - Per family, last known use is around 5 months ago. Dispo: pending goals of care, further swallow eval, and likely placement GI Prophylaxis: Not indicated (Patient extubated) VTE Prophylaxis: Sub-Q Heparin (Unfractionated), SCDs VTE Mechanical Devices: Intermittant Pneumatic CD Resuscitation Status: CPR: Attempt Resuscitation ( is ADM) Macario Abdalla Sep 18, 2016 14:03 Macario Abdalla Sep 18, 2016 14:03
--- NOTE | 2016-09-18 19:07 | NUR ---
Blood Sugar Patient blood sugar 148 this afternoon. Blood sugar 154 this am per shift report. Hospitalist made aware, no orders for insulin.
--- NOTE | 2016-09-18 20:04 | PROG NOTE ---
[address] [address] PROGRESS NOTE PATIENT: SANDY SOSA : 1975 MR#: [id number] ADMIT: 08/23/2016 JOB ID: [id number] CORRECTED REPORT: DATE: 09/18/2016 REQUESTING PHYSICIAN: Macario Abdalla MD REASON FOR CONSULTATION: Anoxic injury. SUBJECTIVE: I spoke with the patient's in detail regarding the patient's situation and my conversation with Kinyarwanda which I had discussed with her [id number] yesterday. I explained to her that the lack of response to steroids would indicate that the patient likely does not have vasculitis. I reiterated the fact that the patient's brain MRI showed profound injury to important parts of the brain that may interfere with his ability to recover, both in terms of motivation given the bilateral globus pallidus injuries, but also watershed areas involving the wolfe radiata. His lack of response to steroids at this point and evidence of lack of pleocytosis on the LP indicates that it is unlikely that he has vasculitis. His asked if it would benefit for us to talk to another hospital. I informed her that I did not believe that would not be useful. The patient has failed to resume any meaningful motor activity, although he does speak with his and she has noticed movement from time to time. He may benefit from being in a rehab facility and Social Work is working to try and find placement. This is challenging because of his immigration status. Despite extensive laboratory studies, there has been no evidence to suggest infection. Dr. Lopez requested additional laboratories to look for any evidence to cause encephalitis which are still pending including anti-NMDAR, West Nile, syphilis, Bartonella and mycoplasma PCR. The patient continues to have intermittent elevated temperature. The patient has been receiving steroids per protocol by Dr. Abdalla. There has been no response at this time. We agree to do at least three days to look for improvement. I explained to the patient's and Dr. Abdalla that Dr. Guillaume will be on-call as of tomorrow and is willing to do reassessment. I did, however, explain that there is poor prognosis if there is no response to treatment. A Telugu-speaking consultants intern was used to communicate with the patient. All questions were answered. The patient expressed understanding. She was tearful but has support services available to her. Will sign off for now. Dr. guillaume will see the patient tomorrow. Please call him if needed. ADDITIONAL INFORMATION: A total of 30 minutes was spent in [id number] consultation with the patient's family. Addenda added by HUDSON 09/26/16 at 7:12am
--- NOTE | 2016-09-18 20:48 | DRSVH ---
PROCEDURE: US ABDOMEN, LIMITED ([id number]) INDICATIONS: Fever, incr alt and lipase-anoxic encephalopaythy TECHNIQUE: Real-time focused scanning was performed of the abdomen, with image documentation. COMPARISON: [facility], , ABDOMEN LTD, 09/07/2016, 18:41. FINDINGS: Grossly normal appearance of the liver. Gallstones present largest measuring 2.3 x 1.9 x 2 .2 cm. No definite gallbladder wall thickening. No pericholecystic fluid. No biliary dilatation. Normal pancreatic head and body. IMPRESSION: Cholelithiasis. Dictated by: Juma Martinez [facility] Interpreted: Hemant Gallegos MD on 09/18/2016 at 16:01 Approved by: Hemant Gallegos M.D. on 09/18/2016 at 20:45
[2016-09-19] VITALS (7 sets, daily range): BP systolic 124–143; BP diastolic 76–84; PULSE 95–103; RESP 17–18; O2SAT 96–98
[2016-09-19] MEDS: Heparin 5,000 Unit/mL Inj SUBQ SCH ×3 (00:29→17:11)
[2016-09-19] MEDS: DESMOPRESSIN IV SCH ×2 (01:54→13:50)
[2016-09-19] MEDS: SODIUM CHLORIDE 0.9% IV SCH ×2 (01:54→13:50)
--- NOTE | 2016-09-19 04:39 | NUR ---
Repositioning Pt. continues to be flaccid in all ext, q2 turns with pillows, NGT, FMS and FC still in place, intact and patent, tolerating tube feeding well, HOB elevated as tolerated, Wiggles toes and opened eyes when being asked, family at bedside, no s/s of acute distress noted at this time, hourly checks, will continue to monitor.
[2016-09-19] MEDS: Thiamine Inj 200 MG in Dextrose 5% 50 ML IV SCH (07:55)
[2016-09-19] MEDS: predniSONE 20 mg Tablet PO SCH (07:56)
[2016-09-19] MEDS: AMANTADINE 10 MG/ML TUBE SCH (09:03)
--- NOTE | 2016-09-19 13:22 | PROG NOTE ---
[address] [address] PROGRESS NOTE PATIENT: SANDY SOSA : 1975 MR#: [id number] ADMIT: 08/23/2016 JOB ID: [id number] DATE: 09/19/2016 INFECTIOUS DISEASE FOLLOWUP NOTE: REASON FOR FOLLOWUP: Anoxic brain injury with subsequent sustained fevers of unknown etiology. INTERVAL HISTORY: During the past day or so the patient has been occasionally awake and reportedly giving one- or two-word answers and smiling appropriately at times. Most of the rest of the time he remains quite lethargic and sometimes is unarousable. There are reports that he has been able to wiggle his toes or occasionally move his hands, but I have never seen this. Today the patient is in his usual state of awareness. He seems to open his eyes and look at people but does not answer questions, though his and family members say he was earlier. He cannot obviously voice any complaints and does not move anything. PHYSICAL EXAMINATION: Reveals an afebrile gentleman, currently 37.7. His last temperature over 38 was 38.2 yesterday morning, about 24 hours ago. Pulse remains in the 80s-90s, respiratory rate 18, blood pressure 140/84. He is saturating 97% on room air. The patient is, as noted, very lethargic. Will open his eyes when asked to do so but is not interacting in other ways. His neck remains supple, his lungs fairly clear. Cardiac tones regular rate and rhythm, without murmur. Abdomen is benign. No new skin rash. His limbs are essentially flaccid. LABORATORY: White count 10,500, platelet count 151, sed rate 63. Creatinine 0.95. 127, 64. Those values are from yesterday. All cultures remain negative including the spinal fluid PCR studies, as well as many blood cultures and other studies. Some serologies are also back and include negative Bartonella serology, negative RPR, and negative West Nile antibodies. A Fungitell is negative. QuantiFERON Gold negative. HIV negative. The only outstanding study that I have is the NMDA receptor antibody. IMAGING: The abdominal ultrasound ordered yesterday to investigate his elevated LFTs shows cholelithiasis without cholecystitis. IMPRESSION: It seems more and more likely that his unexplained fevers are on the basis of brain injury rather than any ongoing infection. We have no evidence for a CAMPGROUND HAND infection certainly based upon his spinal fluid as well as his PCR test. Other tests are pending, but so far these are all negative as well, and we only await the anti-NMDA receptor antibody assay. RECOMMENDATIONS: 1. We await the NMDA antibody. 2. If his fevers continue early into next week, we may consider a CT scan of the chest just to rule out the possibility of an infiltrate or a lung abscess, but I think that is very unlikely. Note that his sinuses were normal on the CT of the brain done recently. 3. We will continue to follow this patient off antibiotics. 4. I have written for lab work for Thursday. Thank you very much.
--- NOTE | 2016-09-19 13:51 | PCM.PNMED ---
Subjective Date of Service Sep 19, 2016 Subjective Unable to obtain ROS 2ndry to being nonverbal and not interactive Exam Vital Signs Vital Sign - Last Date Time Temp Pulse Resp B/P Pulse Ox O2 Delivery O2 Flow Rate FiO2 09/19/16 10:15 37.7 95 18 140/84 97 Room Air Intake and Output 09/18/16 09/18/16 09/19/16 Cumulative From/Thru 15:00 23:00 07:00 08/23/16 05:20 - 09/19/16 06:11 Intake Total 72 ml 1800 ml 688 ml 459424 ml Output Total 1225 ml 1530 ml 54148 ml Balance 72 ml 575 ml -842 ml 3626 ml Intake Oral 560 ml IV Total 72 ml 74 ml 55 ml 27190 ml Tube Feeding 709 ml 633 ml 82633 ml Tube Irrigant 1017 ml 88663 ml Output Urine Total 1100 ml 1500 ml 14112 ml Stool Total 125 ml 77571 ml Gastric Drainage Total 1070 ml Ultrafiltrate 4700 ml Other 30 ml 30 ml # Bowel Movements 11 Exam General: No Acute Distress Head: Normal Eyes: Scleral Anicteric Nose: Mucous Membr Moist/[place] Mouth: Mucous Membr Moist/[place] Neck: Supple Chest & Lungs: Chest Wall Normal, Clear to auscultation bilat Cardiovascular: Regular Rate/Rhythm Pulses: NL DP, PT Extremities: No cyanosis/clubbing/edema bilat Neurological: Other (limited exam 2ndry to patient not following any commands) IVs and Medications Medications Reviewed: Medications were reviewed in detail Lab and Diagnostics Result Diagram: 09/16/16 1618 09/16/16 0500 Microbiology Blood cultures pending MRSA swab pending X-Rays, CTs and MRIs CT BRAIN WITHOUT CONTRAST IMPRESSION: No acute disease. Dictated by: Hemant Gallegos M.D. on 08/23/2016 CT BRAIN WITHOUT CONTRAST IMPRESSION: 1. Diffuse bilateral hypodensity of the globus pallidus. This is a new finding when compared with the study dated 08/23/16. Differential considerations include anoxic injury, carbon monoxide neurotoxicity, excessive alcohol ingestion, and methanol or ethylene glycol ingestion. Dictated by: Dinora Kang M.D. 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 Dictated by: Jacob Mosqueda M.D. on 08/28/2016 MRI STROKE PROTOCOL IMPRESSION: BRAIN MRI: Continued worsening of ischemic injury to the brain parenchyma, symmetric bilaterally, and best seen in the deep white matter of the lentiform nuclei, the wolfe radiata, and the centrum semiovale. No associated hemorrhage. BRAIN MR ANGIOGRAM: No acute disease to the intracranial arterial vasculature. NECK MR ANGIOGRAM: Normal cervical MR angiogram. The estimate of stenosis included in the report of the imaging study was calculated using the NASCET method Dictated by: Jack Padilla M.D. on 09/15/2016 CT CHEST WITHOUT CONTRAST IMPRESSION: Small basal left pleural effusion is unchanged, with associated left lower lobe compressive atelectasis. Superimposed pneumonia therefore cannot be excluded. Dictated by: Binh Ochoa M.D. on 09/07/2016 at 13:47 US RENAL SONOGRAM IMPRESSION: No hydronephrosis. Right renal cyst. Dictated by: Shobha Vale M.D. on 08/24/2016 US ABDOMEN, LIMITED IMPRESSION: Cholelithiasis, without justin gallbladder wall thickening to suggest acute cholecystitis at this time. Dictated by: Binh Ochoa M.D. on 09/07/2016 MR ABDOMEN MRCP IMPRESSION: 1. Markedly limited study due to motion artifact. 2. Cholelithiasis without evidence of cholecystitis. 3. No biliary ductal dilatation or definite choledocholithiasis. 4. No peripancreatic edema to suggest pancreatitis an MRI. No discrete pseudocyst identified. Dictated by: Bruce Valadez M.D. on 09/08/2016 at 17:47 US ABDOMEN IMPRESSION: 1. Cholelithiasis. 2. Mild gallbladder wall thickening. Acute cholecystitis cannot be excluded. 3. Echogenic liver. Finding typically represents fatty infiltration; however, finding is nonspecific and correlation with clinical and laboratory findings is recommended to exclude other etiologies including hepatic cirrhosis. 4. Slightly echogenic right kidney suspicious for developing medical renal disease. Please correlate with clinical and laboratory data. Dictated by: Swathi Jimenes MD, PhD on 08/29/2016 US ABDOMEN, LIMITED IMPRESSION: Cholelithiasis, without justin gallbladder wall thickening to suggest acute cholecystitis at this time. Dictated by: Binh Ochoa M.D. on 09/07/2016 X-RAY CHEST ONE VIEW, PORTABLE IMPRESSION: No acute disease is seen a semiupright portable chest. Tubes are considered appropriate radiographically. Dictated by: Hemant Gallegos M.D. on 08/23/2016 X-RAY CHEST ONE VIEW, PORTABLE IMPRESSION: Support lines as above. Otherwise, no acute pulmonary process. Dictated by: Shobha Vale M.D. on 08/24/2016 X-RAY CHEST ONE VIEW, PORTABLE IMPRESSION: No acute cardiopulmonary disease process. Dictated by: Swathi Jimenes MD, PhD on 08/25/2016 X-RAY CHEST ONE VIEW, PORTABLE IMPRESSION: 1. Left basilar atelectasis. Otherwise lungs are clear. 2. ET and enteric tubes. Dictated by: Jacob Mosqueda M.D. on 08/27/2016 at 9:53 X-RAY CHEST ONE VIEW, PORTABLE IMPRESSION: Stable left basilar atelectasis and support lines. Dictated by: Jacob Mosqueda M.D. on 08/28/2016 at 7:54 Date of Service: 09/15/16 1757 PROCEDURE: MRI STROKE PROTOCOL ([id number]) IMPRESSION: BRAIN MRI: Continued worsening of ischemic injury to the brain parenchyma, symmetric bilaterally, and best seen in the deep white matter of the lentiform nuclei, the wolfe radiata, and the centrum semiovale. No associated hemorrhage. BRAIN MR ANGIOGRAM: No acute disease to the intracranial arterial vasculature. NECK MR ANGIOGRAM: Normal cervical MR angiogram. The estimate of stenosis included in the report of the imaging study was calculated using the NASCET method Dictated by: Jack Padilla M.D. on 09/15/2016 at 21:36 Approved by: Jack Padilla M.D. on 09/15/2016 at 21:42 Additional Diagnostics ABG DateTimeAnalyzed 10:20:00 -_ pH ____7.354 - 7.350 7.450 pCO2 ___31.5__ -mmHg 35.0 45.0 pO2 160 -mmHg 69.0 116 HCO3- ___17.1__ -mmol/L 22.0 26.0 FIO2 ___45.0__ -% PRVC 20 - PEEP ____8.0__ -cmH2O Assessment & Plan 41 year old male with known history of alcohol and drug use presented unresponsive after being found with vomit around him, sedated and intubated for acute hypoxemic respiratory failure secondary to aspiration for 5 days and extubated on hospital day 6 following successful spontaneous breathing trial. # Acute Brain Injury, present on admission. Ongoing and worsening - Strongly suspected anoxic brain injury given presenting history - Secondary to aspiration and intoxication. Patient had large volume of vomit suctioned out in the ED. - Initial EEG showed evidence of slowing but no other abnormalities to suggest that the patient is having clinical seizures causing his symptoms. - Intubated on 08/23/16, Extubated on 08/28/16. - Zosyn was given for 7 days earlier in the hospital course but was stopped per ID recommendation. - Patient with reported neurologic deterioration few days after extubation and transfer out of ICU - Repeat MRI of brain on 09/15/16 showing: "Continued worsening of ischemic injury to the brain parenchyma, symmetric bilaterally" - Discussed new MRI findings with neuro consult. ? if these findings due to underlying vasculitis, infection or other etiology - Post LP and CTA brain on 09/16/16. - Appreciate neurology consult. Will followup with recs - Above studies and findings were discussed with neuro consult (Dr. Jara) on 09/17/16 who also reviewed these findings with [facility] neurology. - Anoxic brain injury and its progression is still high on list of differential. However, given no obvious source of infection and remote likelihood of vasculitis, per discussion with Dr. Jara started a trial of steroid therapy (Prednisone 80mg daily x 3 days) on 09/17/16 to see if we will achieve any significant improvement in neuro symptoms. # Acute fevers, not present on admission. ongoing - Appreciate ID consult. Will followup with recs - Per ID consult, fevers thought to be likely due to central etiology. - Initially though due to Pancreatitis or Cholecystitis. UA is negative - Completed course of Ertapenem. - MRCP did not show further evidence of Pancreatitis or Cholecystitis. - Blood cultures are so far negative. - Vasculitis workup and LP as noted above # Acute dysphagia. Likely due to anoxic brain injury noted above. Present on admission. - Per earlier notes: "After Family meeting on 09/13, has requested MBS attempted again and would like to be present." - Pt failed MBS on 09/15 due to inability to fully follow instructions. - Continue with Ngtube feed and hold PEG placement until above workup complete and determine if neuro changes can be reversible. - Palliative was following but signed off, will need to reconsult if PEG is decision. # Mild acute hypernatremia, not present on admission, active. - Appreciate nephrology consult. Will followup with recs # Acute Kidney Injury, present on admission. Resolved - Cr on admission at 3.52 and increasing after admission. Unknown history of kidney injury. - Appreciate nephrology consult. Will followup with recs - Hemodialysis done daily starting 08/25/16 and then stopped. No longer on hemodialysis and catheter removed - Free water flushes 300 ml q 4 hr. - Continue DDAVP. # Acute Cholecystitis, present on admission. Resolved - Acute cholecystitis based on HIDA scan and abdominal CT. - Gen. surgery was consulted, Dr. Dash as intial thought of CCK. Upon follow up MRCP was negative for Acute Pancreatitis and Chronic cholecystitis. - Resolved cholelithiasis w/o choledocholithiasis. - No surgery indicated at this time given improvement. - TPN stopped on 09/06/16 as this was thought to be worsening cholecystitis and pancreatitis. # Acute Metabolic Acidosis, present on admission. Improved - Likely secondary to lactic acidosis and uremia - Monitor CMP: # Acute Rhabdomyolysis, present on admission, [place] [id number]. Likely secondary to being in one position for 9 hours. - Wound care consult # Acute Hyperkalemia, present on admission, resolved - Kayexalate via feeding tube was given per nephro on 09/07 - Continue to monitor # Acute stage II ulcers in the buttock areas, present on admission. - Continue with wound care and supportive care # History of alcohol dependence - No need to institute CIWA protocol at this time # History of drug dependence - Known user of cocaine and ice - Per family, last known use is around 5 months ago. Dispo: pending goals of care, further swallow eval, and likely placement GI Prophylaxis: Not indicated (Patient extubated) VTE Prophylaxis: Sub-Q Heparin (Unfractionated), SCDs VTE Mechanical Devices: Intermittant Pneumatic CD Resuscitation Status: CPR: Attempt Resuscitation ( is ADM) Macario Abdalla Sep 19, 2016 13:51
--- NOTE | 2016-09-19 17:22 | NUR ---
Social Work Note: Continued Discharge Planning/Multidisciplinary Rounds D: EMR reviewed. Pt is on day 27 of hospitalization. Per conversation with RN and MD documentation, pt's condition is declining and pt is undergoing further testing to identify reasoning for the decline. Per MD, SW to wait to have family meeting regarding care plan until clearance from MD - Pt to undergo trial of steroids to further determine prognosis. MD will have discussion with family regarding care plan once prognosis determined and then consult [employer] for discharge planning. [facility] unable to accept pt. Final PT equipment recommendations for safety at home are pending. Potential plan for pt to discharge home with family support with teaching and equipment had previously been discussed with pt family. SW to discuss over all care plan with pt when prognosis and medical care plan is clarified. SW to continue to follow. A: Pt anticipated to need 24/7 care - pending medical prognosis. P: Pt prognosis unclear at this time. If pt medically progresses and becomes clinically stable, anticipated discharge home with family support pending final nutrition plan, PT equipment recommendations and family teaching. SW to discuss over all care plan with pt when prognosis and medical care plan is clarified. SW to await MD clearance to discuss care plan once prognosis determined. SW to continue to follow. JEFF Marquez
[2016-09-19] MEDS: Acetaminophen 32.5 mg/mL 20 mL Liquid PO PRN (19:50)
--- NOTE | 2016-09-19 20:07 | CONS ---
[address] [address] CONSULTATION REPORT PATIENT: SANDY SOSA : 1975 MR#: [id number] ADMIT: 08/23/2016 JOB ID: [id number] DATE OF SERVICE: 09/19/2016 SUBJECTIVE: Multiple family members are present at today's visit and his notes that in the morning he appears to be more awake and alert and was able to mutter some words to her as well as to his nurse at the time. She also noted in the morning that he had moved his right leg, bending his knee and inquired as to whether the nurse had moved him and she stated no. Suspects that he had moved his knee on his own. Although he is not following any commands at this time and is nonverbal, his reports that in the mornings, he is verbal and more alert. Today, he was nonverbal and did not follow any commands. His limbs remain flaccid. His is convinced that there has been some degree of improvement in his mental status after the steroids. We reviewed in detail the extensive evaluation that has been performed so far by my partner, Dr. Jara, as well as Dr. Lopez. Additional laboratory studies are still pending including anti NMDAR, West Nile, syphilis, Bartonella and mycoplasma PCR. He continues to have intermittent elevated temperatures. PAST MEDICAL HISTORY/PAST SURGICAL HISTORY/FAMILY HISTORY/SOCIAL HISTORY/ ALLERGIES: Please see chart MEDICATIONS: Include: 1. Desmopressin. 2. Thiamine. 3. Tylenol. 4. Amantadine 100 mg daily. 5. Heparin 5000 units subcutaneous q.8 h. 6. Zofran. 7. Polyethylene glycol. 8. He completed prednisone 80 mg today. 9. He also has p.r.n. Senokot and sodium chloride flushes. REVIEW OF SYSTEMS: A complete review of systems could not be performed due to his mental status. PHYSICAL EXAMINATION: Temperature 37.3, pulse of 102, respiratory rate of 18, blood pressure 124/76, pulse oximetry 96% on room air. Physical examination: Head normocephalic, atraumatic. Neck supple. No carotid bruits were auscultated. Negative Kernig. Negative Brudzinski. Chest clear to auscultation. Heart: Regular rate and rhythm. Abdomen: Soft, nondistended, nontender. Extremities: No cyanosis, clubbing, or edema. Skin: No rashes noted. He does have an NG tube in place and is receiving feeds. NEUROLOGIC EXAMINATION: Mental status: He does appear to alert to voice and open his eyes. I did not note any movement of his extremities. He does not follow any complex commands. He is nonverbal. He does appear to be tracking at times. However, did not follow any commands and was nonverbal today. Cranial nerves: Pupils equal, round, and reactive to light. Extraocular movements were smooth and conjugate with no evidence of nystagmus. Face appeared symmetrical. Blink to threat was intact bilaterally. Facial sensation could not be assessed. Eye contact was noted. Tongue appeared midline. Motor: He does not move any of his extremities. They are completely flaccid. Deep tendon reflexes were trace throughout. Plantars were equivocal bilaterally. Tone appeared reduced throughout. Sensation: He did not withdraw to noxious stimuli. RECOMMENDATIONS: This is an unfortunate 41-year-old gentleman with anoxic brain injury. There has been concern for the possibility of a vasculitic etiology. I plan to return to see him at 7:30 tomorrow morning as his reports that he is most alert early in the morning. If there is evidence that there has been some degree of improvement with the steroids, he may benefit from a pulse dose of methylprednisolone 500 to 1000 mg IV to see if there would be any possibility of further improvement in his neurologic symptoms. However, I am not convinced that there has been any improvement in his neurologic status despite receiving three days of prednisone 80 mg daily and if not, it is unlikely that he would benefit from a high dose of steroids. The lumbar puncture was unrevealing although certainly a vasculitic etiology could still be present in the absence of CSF abnormalities. I would expect at least some degree of improvement with steroids. Despite this I do suspect that his mental status is likely secondary to anoxic brain injury as opposed to a vasculitic etiology, which appears less likely and given his present neurologic status, further meaningful recovery is unlikely. Thank you again, Dr. Abdalla, for allowing me to participate in the care of your patient. Please feel free to contact me with any questions or concerns. AUBREY
[2016-09-20] VITALS (8 sets, daily range): BP systolic 117–143; BP diastolic 70–83; PULSE 64–99; RESP 16–18; O2SAT 95–98
[2016-09-20] MEDS: Heparin 5,000 Unit/mL Inj SUBQ SCH ×3 (00:17→17:54)
[2016-09-20] MEDS: DESMOPRESSIN IV SCH ×2 (01:49→15:41)
[2016-09-20] MEDS: SODIUM CHLORIDE 0.9% IV SCH ×2 (01:49→15:41)
[2016-09-20] MEDS: Acetaminophen 32.5 mg/mL 20 mL Liquid PO PRN ×2 (04:34→19:43)
[2016-09-20 05:24] LABS: BASOPHILS % (AUTO) 0.5 % (0-3); EOSINOPHILS % (AUTO) 0.5 % (0-5); Mean Corpuscular Hemoglobin 29.4 pg (27.0-35.0); Mean Corpuscular Volume 92.9 fL (81-100); NEUTROPHILS % (AUTO) 60.8 % (40-74); Platelet Count 160 bil/L (150-400)
[2016-09-20 05:45] LABS: Magnesium 2.1 mg/dL (1.6-2.6)
[2016-09-20 05:47] LABS: ERYTHROCYTE SEDIMENTATION RATE 50 mm/hr (0-15)
[2016-09-20] MEDS: Thiamine Inj 200 MG in Dextrose 5% 50 ML IV SCH (09:56)
[2016-09-20] MEDS: AMANTADINE 10 MG/ML TUBE SCH ×2 (09:56→19:44)
--- NOTE | 2016-09-20 14:18 | PCM.PNMED ---
Subjective Date of Service Sep 20, 2016 Subjective Unable to obtain ROS 2ndry to being nonverbal and not interactive Exam Vital Signs Vital Sign - Last Date Time Temp Pulse Resp B/P Pulse Ox O2 Delivery O2 Flow Rate FiO2 09/20/16 08:10 Supplement Oxygen 09/20/16 08:10 37.1 97 123/70 96 09/20/16 04:31 17 Intake and Output 09/19/16 09/19/16 09/20/16 Cumulative From/Thru 15:00 23:00 07:00 08/23/16 05:20 - 09/20/16 05:10 Intake Total 1646 ml 1766 ml 605481 ml Output Total 1100 ml 1600 ml 72893 ml Balance 546 ml 166 ml 4338 ml Intake Oral 560 ml IV Total 133 ml 60 ml 96483 ml Tube Feeding 813 ml 656 ml 98606 ml Tube Irrigant 700 ml 1050 ml 56966 ml Output Urine Total 1050 ml 1350 ml 43589 ml Stool Total 50 ml 250 ml 28272 ml Gastric Drainage Total 1070 ml Ultrafiltrate 4700 ml Other 30 ml # Bowel Movements 11 Exam General: No Acute Distress Head: Normal Eyes: Scleral Anicteric Nose: Mucous Membr Moist/[place] Mouth: Mucous Membr Moist/[place] Neck: Supple Chest & Lungs: Chest Wall Normal, Clear to auscultation bilat Cardiovascular: Regular Rate/Rhythm Pulses: NL DP, PT Extremities: No cyanosis/clubbing/edema bilat Neurological: Other (limited exam 2ndry to patient not following any commands) IVs and Medications Medications Reviewed: Medications were reviewed in detail Lab and Diagnostics Result Diagram: 09/20/16 0430 09/20/16 0430 Microbiology Blood cultures pending MRSA swab pending X-Rays, CTs and MRIs CT BRAIN WITHOUT CONTRAST IMPRESSION: No acute disease. Dictated by: Hemant Gallegos M.D. on 08/23/2016 CT BRAIN WITHOUT CONTRAST IMPRESSION: 1. Diffuse bilateral hypodensity of the globus pallidus. This is a new finding when compared with the study dated 08/23/16. Differential considerations include anoxic injury, carbon monoxide neurotoxicity, excessive alcohol ingestion, and methanol or ethylene glycol ingestion. Dictated by: Dinora Kang M.D. 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 Dictated by: Jacob Mosqueda M.D. on 08/28/2016 MRI STROKE PROTOCOL IMPRESSION: BRAIN MRI: Continued worsening of ischemic injury to the brain parenchyma, symmetric bilaterally, and best seen in the deep white matter of the lentiform nuclei, the wolfe radiata, and the centrum semiovale. No associated hemorrhage. BRAIN MR ANGIOGRAM: No acute disease to the intracranial arterial vasculature. NECK MR ANGIOGRAM: Normal cervical MR angiogram. The estimate of stenosis included in the report of the imaging study was calculated using the NASCET method Dictated by: Jack Padilla M.D. on 09/15/2016 CT CHEST WITHOUT CONTRAST IMPRESSION: Small basal left pleural effusion is unchanged, with associated left lower lobe compressive atelectasis. Superimposed pneumonia therefore cannot be excluded. Dictated by: Binh Ochoa M.D. on 09/07/2016 at 13:47 US RENAL SONOGRAM IMPRESSION: No hydronephrosis. Right renal cyst. Dictated by: Shobha Vale M.D. on 08/24/2016 US ABDOMEN, LIMITED IMPRESSION: Cholelithiasis, without justin gallbladder wall thickening to suggest acute cholecystitis at this time. Dictated by: Binh Ocoha M.D. on 09/07/2016 MR ABDOMEN MRCP IMPRESSION: 1. Markedly limited study due to motion artifact. 2. Cholelithiasis without evidence of cholecystitis. 3. No biliary ductal dilatation or definite choledocholithiasis. 4. No peripancreatic edema to suggest pancreatitis an MRI. No discrete pseudocyst identified. Dictated by: Bruce Valadez M.D. on 09/08/2016 at 17:47 US ABDOMEN IMPRESSION: 1. Cholelithiasis. 2. Mild gallbladder wall thickening. Acute cholecystitis cannot be excluded. 3. Echogenic liver. Finding typically represents fatty infiltration; however, finding is nonspecific and correlation with clinical and laboratory findings is recommended to exclude other etiologies including hepatic cirrhosis. 4. Slightly echogenic right kidney suspicious for developing medical renal disease. Please correlate with clinical and laboratory data. Dictated by: Swathi Jimenes MD, PhD on 08/29/2016 US ABDOMEN, LIMITED IMPRESSION: Cholelithiasis, without justin gallbladder wall thickening to suggest acute cholecystitis at this time. Dictated by: Binh Ochoa M.D. on 09/07/2016 X-RAY CHEST ONE VIEW, PORTABLE IMPRESSION: No acute disease is seen a semiupright portable chest. Tubes are considered appropriate radiographically. Dictated by: Hemant Gallegos M.D. on 08/23/2016 X-RAY CHEST ONE VIEW, PORTABLE IMPRESSION: Support lines as above. Otherwise, no acute pulmonary process. Dictated by: Shobha Vale M.D. on 08/24/2016 X-RAY CHEST ONE VIEW, PORTABLE IMPRESSION: No acute cardiopulmonary disease process. Dictated by: Swathi Jimenes MD, PhD on 08/25/2016 X-RAY CHEST ONE VIEW, PORTABLE IMPRESSION: 1. Left basilar atelectasis. Otherwise lungs are clear. 2. ET and enteric tubes. Dictated by: Jacob Mosqueda M.D. on 08/27/2016 at 9:53 X-RAY CHEST ONE VIEW, PORTABLE IMPRESSION: Stable left basilar atelectasis and support lines. Dictated by: Jacob Mosqueda M.D. on 08/28/2016 at 7:54 Date of Service: 09/15/16 1757 PROCEDURE: MRI STROKE PROTOCOL ([id number]) IMPRESSION: BRAIN MRI: Continued worsening of ischemic injury to the brain parenchyma, symmetric bilaterally, and best seen in the deep white matter of the lentiform nuclei, the wolfe radiata, and the centrum semiovale. No associated hemorrhage. BRAIN MR ANGIOGRAM: No acute disease to the intracranial arterial vasculature. NECK MR ANGIOGRAM: Normal cervical MR angiogram. The estimate of stenosis included in the report of the imaging study was calculated using the NASCET method Dictated by: Jack Padilla M.D. on 09/15/2016 at 21:36 Approved by: Jack Padilla M.D. on 09/15/2016 at 21:42 Additional Diagnostics ABG DateTimeAnalyzed 10:20:00 -_ pH ____7.354 - 7.350 7.450 pCO2 ___31.5__ -mmHg 35.0 45.0 pO2 160 -mmHg 69.0 116 HCO3- ___17.1__ -mmol/L 22.0 26.0 FIO2 ___45.0__ -% PRVC 20 - PEEP ____8.0__ -cmH2O Assessment & Plan 41 year old male with known history of alcohol and drug use presented unresponsive after being found with vomit around him, sedated and intubated for acute hypoxemic respiratory failure secondary to aspiration for 5 days and extubated on hospital day 6 following successful spontaneous breathing trial. # Acute Brain Injury, present on admission. Ongoing and worsening - Strongly suspected anoxic brain injury given presenting history - Secondary to aspiration and intoxication. Patient had large volume of vomit suctioned out in the ED. - Initial EEG showed evidence of slowing but no other abnormalities to suggest that the patient is having clinical seizures causing his symptoms. - Intubated on 08/23/16, Extubated on 08/28/16. - Zosyn was given for 7 days earlier in the hospital course but was stopped per ID recommendation. - Patient with reported neurologic deterioration few days after extubation and transfer out of ICU - Repeat MRI of brain on 09/15/16 showing: "Continued worsening of ischemic injury to the brain parenchyma, symmetric bilaterally" - Discussed new MRI findings with neuro consult. ? if these findings due to underlying vasculitis, infection or other etiology - Post LP and CTA brain on 09/16/16. - Appreciate neurology consult. Will followup with recs - Above studies and findings were discussed with neuro consult (Dr. Jara) on 09/17/16 who also reviewed these findings with [facility] neurology. - Anoxic brain injury and its progression is most likely diagnosis at this time. However, given no obvious source of infection and remote likelihood of vasculitis, per discussion with Dr. Jara started a trial of steroid therapy (Prednisone 80mg daily x 3 days) on 09/17/16 to see if we will achieve any significant improvement in neuro symptoms. No obvious improvement noted with 3 days of Prednisone treatment. - Increase Amantadine to 100mg bid on 09/20/16 # Acute fevers, not present on admission. ongoing - Appreciate ID consult. Will followup with recs - Per ID consult, fevers thought to be likely due to central etiology. - Initially though due to Pancreatitis or Cholecystitis. UA is negative - Completed course of Ertapenem. - MRCP did not show further evidence of Pancreatitis or Cholecystitis. - Blood cultures negative. - Vasculitis workup and LP as noted above # Acute dysphagia. Likely due to anoxic brain injury noted above. Present on admission. - Per earlier notes: "After Family meeting on 09/13, has requested MBS attempted again and would like to be present." - Pt failed MBS on 09/15 due to inability to fully follow instructions. - Continue with Ngtube feed - Will address PEG placement on Thursday if no further improvement by then # Mild acute hypernatremia, not present on admission, active. - Appreciate nephrology consult. Will followup with recs # Acute Kidney Injury, present on admission. Resolved - Cr on admission at 3.52 and increasing after admission. Unknown history of kidney injury. - Appreciate nephrology consult. Will followup with recs - Hemodialysis done daily starting 08/25/16 and then stopped. No longer on hemodialysis and catheter removed - Free water flushes 300 ml q 4 hr. - Continue DDAVP. # Acute Cholecystitis, present on admission. Resolved - Acute cholecystitis based on HIDA scan and abdominal CT. - Gen. surgery was consulted, Dr. Dash as intial thought of CCK. Upon follow up MRCP was negative for Acute Pancreatitis and Chronic cholecystitis. - Resolved cholelithiasis w/o choledocholithiasis. - No surgery indicated at this time given improvement. - TPN stopped on 09/06/16 as this was thought to be worsening cholecystitis and pancreatitis. # Acute Metabolic Acidosis, present on admission. Improved - Likely secondary to lactic acidosis and uremia - Monitor CMP: # Acute Rhabdomyolysis, present on admission, [place] [id number]. Likely secondary to being in one position for 9 hours. - Wound care consult # Acute Hyperkalemia, present on admission, resolved - Kayexalate via feeding tube was given per nephro on 09/07 - Continue to monitor # Acute stage II ulcers in the buttock areas, present on admission. - Continue with wound care and supportive care # History of alcohol dependence - No need to institute CIWA protocol at this time # History of drug dependence - Known user of cocaine and ice - Per family, last known use is around 5 months ago. Dispo: pending goals of care, further swallow eval, and likely placement GI Prophylaxis: Not indicated (Patient extubated) VTE Prophylaxis: Sub-Q Heparin (Unfractionated), SCDs VTE Mechanical Devices: Intermittant Pneumatic CD Resuscitation Status: CPR: Attempt Resuscitation ( is ADM) Macario Abdalla Sep 20, 2016 14:18 Macario Abdalla Sep 20, 2016 14:18
--- NOTE | 2016-09-20 19:15 | NUR ---
Mentation/skin/pain Observed pt say good morning to DR Mcmahan Opened mouth x2 when asked for mouth care. Total assist with bed mobility. When extremities lifted the would fall readily on bed. Turned q2hrs. grimaced in pain with turning, especially the neck.
[2016-09-21] VITALS (7 sets, daily range): BP systolic 120–127; BP diastolic 75–82; PULSE 78–95; RESP 16–18; O2SAT 97–99
[2016-09-21] MEDS: Heparin 5,000 Unit/mL Inj SUBQ SCH ×3 (00:20→17:27)
[2016-09-21] MEDS: DESMOPRESSIN IV SCH ×2 (01:35→15:25)
[2016-09-21] MEDS: SODIUM CHLORIDE 0.9% IV SCH ×2 (01:35→15:25)
[2016-09-21] MEDS: Acetaminophen 32.5 mg/mL 20 mL Liquid PO PRN (05:35)
--- NOTE | 2016-09-21 05:53 | NUR ---
Fever assumed pt care at 1900, pt continues to spike fevers throughout night only slight response from tylenol, tepid sponge bath done,complete bed bath done tonight, q2turn, mostly somnolent throughout night, not tracking, occasionally opens eyes, notable grimacing noted during repositioning.
[2016-09-21] MEDS: Thiamine Inj 200 MG in Dextrose 5% 50 ML IV SCH (08:01)
[2016-09-21] MEDS: AMANTADINE 10 MG/ML TUBE SCH ×2 (08:56→20:06)
--- NOTE | 2016-09-21 14:04 | PCM.PNMED ---
Subjective Date of Service Sep 21, 2016 Subjective Unable to obtain ROS 2ndry to being nonverbal and not interactive Exam Vital Signs Vital Sign - Last Date Time Temp Pulse Resp B/P Pulse Ox O2 Delivery O2 Flow Rate FiO2 09/21/16 10:50 38.4 84 18 120/78 98 Room Air Intake and Output 09/20/16 09/20/16 09/21/16 Cumulative From/Thru 15:00 23:00 07:00 08/23/16 05:20 - 09/21/16 05:50 Intake Total 90 ml 1524 ml 1619 ml 710533 ml Output Total 850 ml 1450 ml 553762 ml Balance 90 ml 674 ml 169 ml 5271 ml Intake Oral 560 ml IV Total 90 ml 90 ml 50 ml 95654 ml Tube Feeding 709 ml 868 ml 36045 ml Tube Irrigant 725 ml 701 ml 63337 ml Output Urine Total 850 ml 1450 ml 13351 ml Stool Total 04158 ml Gastric Drainage Total 1070 ml Ultrafiltrate 4700 ml Other 30 ml # Bowel Movements 11 Exam General: No Acute Distress Head: Normal Eyes: Scleral Anicteric Nose: Mucous Membr Moist/[place] Mouth: Mucous Membr Moist/[place] Neck: Supple Chest & Lungs: Chest Wall Normal, Clear to auscultation bilat Cardiovascular: Regular Rate/Rhythm Pulses: NL DP, PT Extremities: No cyanosis/clubbing/edema bilat Neurological: Other (limited exam 2ndry to patient not following any commands) IVs and Medications Medications Reviewed: Medications were reviewed in detail Lab and Diagnostics Result Diagram: 09/20/16 0430 09/20/16 0430 Microbiology Blood cultures pending MRSA swab pending X-Rays, CTs and MRIs CT BRAIN WITHOUT CONTRAST IMPRESSION: No acute disease. Dictated by: Hemant Gallegos M.D. on 08/23/2016 CT BRAIN WITHOUT CONTRAST IMPRESSION: 1. Diffuse bilateral hypodensity of the globus pallidus. This is a new finding when compared with the study dated 08/23/16. Differential considerations include anoxic injury, carbon monoxide neurotoxicity, excessive alcohol ingestion, and methanol or ethylene glycol ingestion. Dictated by: Dinora Kang M.D. 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 Dictated by: Jacob Mosqueda M.D. on 08/28/2016 MRI STROKE PROTOCOL IMPRESSION: BRAIN MRI: Continued worsening of ischemic injury to the brain parenchyma, symmetric bilaterally, and best seen in the deep white matter of the lentiform nuclei, the wolfe radiata, and the centrum semiovale. No associated hemorrhage. BRAIN MR ANGIOGRAM: No acute disease to the intracranial arterial vasculature. NECK MR ANGIOGRAM: Normal cervical MR angiogram. The estimate of stenosis included in the report of the imaging study was calculated using the NASCET method Dictated by: Jack Padilla M.D. on 09/15/2016 CT CHEST WITHOUT CONTRAST IMPRESSION: Small basal left pleural effusion is unchanged, with associated left lower lobe compressive atelectasis. Superimposed pneumonia therefore cannot be excluded. Dictated by: Binh Ochoa M.D. on 09/07/2016 at 13:47 US RENAL SONOGRAM IMPRESSION: No hydronephrosis. Right renal cyst. Dictated by: Shobha Vale M.D. on 08/24/2016 US ABDOMEN, LIMITED IMPRESSION: Cholelithiasis, without justin gallbladder wall thickening to suggest acute cholecystitis at this time. Dictated by: Binh Ochoa M.D. on 09/07/2016 MR ABDOMEN MRCP IMPRESSION: 1. Markedly limited study due to motion artifact. 2. Cholelithiasis without evidence of cholecystitis. 3. No biliary ductal dilatation or definite choledocholithiasis. 4. No peripancreatic edema to suggest pancreatitis an MRI. No discrete pseudocyst identified. Dictated by: Bruce Valadez M.D. on 09/08/2016 at 17:47 US ABDOMEN IMPRESSION: 1. Cholelithiasis. 2. Mild gallbladder wall thickening. Acute cholecystitis cannot be excluded. 3. Echogenic liver. Finding typically represents fatty infiltration; however, finding is nonspecific and correlation with clinical and laboratory findings is recommended to exclude other etiologies including hepatic cirrhosis. 4. Slightly echogenic right kidney suspicious for developing medical renal disease. Please correlate with clinical and laboratory data. Dictated by: Swathi Jimenes MD, PhD on 08/29/2016 US ABDOMEN, LIMITED IMPRESSION: Cholelithiasis, without justin gallbladder wall thickening to suggest acute cholecystitis at this time. Dictated by: Binh Ochoa M.D. on 09/07/2016 X-RAY CHEST ONE VIEW, PORTABLE IMPRESSION: No acute disease is seen a semiupright portable chest. Tubes are considered appropriate radiographically. Dictated by: Hemant Gallegos M.D. on 08/23/2016 X-RAY CHEST ONE VIEW, PORTABLE IMPRESSION: Support lines as above. Otherwise, no acute pulmonary process. Dictated by: Shobha Vale M.D. on 08/24/2016 X-RAY CHEST ONE VIEW, PORTABLE IMPRESSION: No acute cardiopulmonary disease process. Dictated by: Swathi Jimenes MD, PhD on 08/25/2016 X-RAY CHEST ONE VIEW, PORTABLE IMPRESSION: 1. Left basilar atelectasis. Otherwise lungs are clear. 2. ET and enteric tubes. Dictated by: Jacob Mosqueda M.D. on 08/27/2016 at 9:53 X-RAY CHEST ONE VIEW, PORTABLE IMPRESSION: Stable left basilar atelectasis and support lines. Dictated by: Jacob Mosqueda M.D. on 08/28/2016 at 7:54 Date of Service: 09/15/16 1757 PROCEDURE: MRI STROKE PROTOCOL ([id number]) IMPRESSION: BRAIN MRI: Continued worsening of ischemic injury to the brain parenchyma, symmetric bilaterally, and best seen in the deep white matter of the lentiform nuclei, the wolfe radiata, and the centrum semiovale. No associated hemorrhage. BRAIN MR ANGIOGRAM: No acute disease to the intracranial arterial vasculature. NECK MR ANGIOGRAM: Normal cervical MR angiogram. The estimate of stenosis included in the report of the imaging study was calculated using the NASCET method Dictated by: Jack Padilla M.D. on 09/15/2016 at 21:36 Approved by: Jack Padilla M.D. on 09/15/2016 at 21:42 Additional Diagnostics AB DateTimeAnalyzed 10:20:00 -_ pH ____7.354 - 7.350 7.450 pCO2 ___31.5__ -mmHg 35.0 45.0 pO2 160 -mmHg 69.0 116 HCO3- ___17.1__ -mmol/L 22.0 26.0 FIO2 ___45.0__ -% PRVC 20 - PEEP ____8.0__ -cmH2O Assessment & Plan 41 year old male with known history of alcohol and drug use presented unresponsive after being found with vomit around him, sedated and intubated for acute hypoxemic respiratory failure secondary to aspiration for 5 days and extubated on hospital day 6 following successful spontaneous breathing trial. # Acute Brain Injury, present on admission. Ongoing and worsening - Strongly suspected anoxic brain injury given presenting history - Secondary to aspiration and intoxication. Patient had large volume of vomit suctioned out in the ED. - Initial EEG showed evidence of slowing but no other abnormalities to suggest that the patient is having clinical seizures causing his symptoms. - Intubated on 08/23/16, Extubated on 08/28/16. - Zosyn was given for 7 days earlier in the hospital course but was stopped per ID recommendation. - Patient with reported neurologic deterioration few days after extubation and transfer out of ICU - Repeat MRI of brain on 09/15/16 showing: "Continued worsening of ischemic injury to the brain parenchyma, symmetric bilaterally" - Discussed new MRI findings with neuro consult. ? if these findings due to underlying vasculitis, infection or other etiology - Post LP and CTA brain on 09/16/16. - Appreciate neurology consult. Will followup with recs - Above studies and findings were discussed with neuro consult (Dr. Jara) on 09/17/16 who also reviewed these findings with [facility] neurology. - Anoxic brain injury and its progression is most likely diagnosis at this time. However, given no obvious source of infection and remote likelihood of vasculitis, per discussion with Dr. Jara started a trial of steroid therapy (Prednisone 80mg daily x 3 days) on 09/17/16 to see if we will achieve any significant improvement in neuro symptoms. No obvious improvement noted with 3 days of Prednisone treatment. - Increase Amantadine to 100mg bid on 09/20/16 # Acute fevers, not present on admission. ongoing - Appreciate ID consult. Will followup with recs - Per ID consult, fevers thought to be likely due to central etiology. - Initially though due to Pancreatitis or Cholecystitis. UA is negative - Completed course of Ertapenem. - MRCP did not show further evidence of Pancreatitis or Cholecystitis. - Blood cultures negative. - Vasculitis workup and LP as noted above - Repeat blood culture and consider repeat imaging. Will discuss with ID in am # Acute dysphagia. Likely due to anoxic brain injury noted above. Present on admission. - Per earlier notes: "After Family meeting on 09/13, has requested MBS attempted again and would like to be present." - Pt failed MBS on 09/15 due to inability to fully follow instructions. - Continue with Ngtube feed - Will address PEG placement on Thursday if no further improvement by then # Mild acute hypernatremia, not present on admission, active. - Appreciate nephrology consult. Will followup with recs # Acute Kidney Injury, present on admission. Resolved - Cr on admission at 3.52 and increasing after admission. Unknown history of kidney injury. - Appreciate nephrology consult. Will followup with recs - Hemodialysis done daily starting 08/25/16 and then stopped. No longer on hemodialysis and catheter removed - Free water flushes 300 ml q 4 hr. - Continue DDAVP. # Acute Cholecystitis, present on admission. Resolved - Acute cholecystitis based on HIDA scan and abdominal CT. - Gen. surgery was consulted, Dr. Dash as intial thought of CCK. Upon follow up MRCP was negative for Acute Pancreatitis and Chronic cholecystitis. - Resolved cholelithiasis w/o choledocholithiasis. - No surgery indicated at this time given improvement. - TPN stopped on 09/06/16 as this was thought to be worsening cholecystitis and pancreatitis. # Acute Metabolic Acidosis, present on admission. Improved - Likely secondary to lactic acidosis and uremia - Monitor CMP: # Acute Rhabdomyolysis, present on admission, resolved [place] [id number]. Likely secondary to being in one position for 9 hours. - Wound care consult # Acute Hyperkalemia, present on admission, resolved - Kayexalate via feeding tube was given per nephro on 09/07 - Continue to monitor # Acute stage II ulcers in the buttock areas, present on admission. - Continue with wound care and supportive care # History of alcohol dependence - No need to institute CIWA protocol at this time # History of drug dependence - Known user of cocaine and ice - Per family, last known use is around 5 months ago. Dispo: pending goals of care, further swallow eval, and likely placement GI Prophylaxis: Not indicated (Patient extubated) VTE Prophylaxis: Sub-Q Heparin (Unfractionated), SCDs VTE Mechanical Devices: Intermittant Pneumatic CD Resuscitation Status: CPR: Attempt Resuscitation ( is ADM) Macario Abdalla Sep 21, 2016 14:04
--- NOTE | 2016-09-21 17:54 | NUR ---
Fever/Skin Pt c/t be febrile, not worsening, and as shift has progressed pt is less diaphoretic. Skin c/t be closely monitored, q2 checks, turns, changes when needed. FMS closely monitored, line stripped frequently to eliminate leakage.
[2016-09-22] VITALS (7 sets, daily range): BP systolic 114–126; BP diastolic 73–83; PULSE 73–94; RESP 14–18; O2SAT 97–98
[2016-09-22] MEDS: Heparin 5,000 Unit/mL Inj SUBQ SCH ×3 (00:48→16:36)
[2016-09-22] MEDS: SODIUM CHLORIDE 0.9% IV SCH ×2 (02:07→16:30)
[2016-09-22] MEDS: DESMOPRESSIN IV SCH ×2 (02:07→16:30)
[2016-09-22 04:11] LABS: BASOPHILS % (AUTO) 0.4 % (0-3); EOSINOPHILS % (AUTO) 3.3 % (0-5); MONOCYTES % (AUTO) 8.3 % (4-12); Mean Corpuscular Hemoglobin 29.2 pg (27.0-35.0); Mean Corpuscular Volume 91.8 fL (81-100); Platelet Count 130 bil/L (150-400)
--- NOTE | 2016-09-22 07:55 | PROG NOTE ---
[address] [address] PROGRESS NOTE PATIENT: SANDY SOSA : 1975 MR#: [id number] ADMIT: 08/23/2016 JOB ID: [id number] DATE: 09/20/2016 SUBJECTIVE: I was told by his yesterday that he is most alert 1st thing in the morning, so I arrived today around 7:30 in the morning. He was noted to be awake and tracking and was able to give simple one- or two-word answers to questions asked by his . He was unable to follow any complex commands. There has been no spontaneous movement that I have appreciated on examination. Eye contact has been appreciated. When I held up two fingers in front and asked him in Chinese how many fingers he saw, he stated that he saw three. He was able to state his 's name. PHYSICAL EXAMINATION: Temperature 37.1, pulse 97, blood pressure 123/70, pulse oximetry 96% on room air. Head: Normocephalic, atraumatic. Neck: Supple. No carotid bruits were auscultated. Negative Kernig. Negative Brudzinski. Chest: Clear to auscultation. Heart: Regular rate and rhythm. Abdomen: Soft, nondistended, nontender. Extremities: No cyanosis, clubbing, or edema. Skin: No rashes were noted. Face: An NG tube is in place and he is receiving feeds. NEUROLOGIC EXAMINATION: Mental status: He appears to be awake and alert to voice. Opens his eyes and is able to say several words. He is unable to follow any complex commands. What is different from yesterday's examination is that he is verbal. Cranial nerves: Pupils equal, round, and reactive to light. Extraocular movements were smooth and conjugate, with no evidence of nystagmus. Face appeared symmetrical. Blink to threat was intact bilaterally. Facial sensation could not be assessed. Eye contact was noted. Tongue appeared in the midline. Motor: Flaccid upper and lower extremities. No spontaneous movement was noted. Deep tendon reflexes were trace throughout. Plantars were equivocal to silent. Tone appeared to be reduced throughout. Sensation: He did not appear to withdraw to noxious stimuli although he was noted to grimace. REVIEW OF SYSTEMS: A complete review of systems could not be performed due to his mental status. MEDICATIONS: At this time desmopressin, thiamine, Tylenol, amantadine 100 mg daily, heparin 5000 units subcutaneously q.8 h., Zofran, polyethylene glycol, Senokot, sodium chloride flushes. LABORATORY STUDIES: From today did demonstrate an elevated ALT, however this is down from yesterday. Glucose 128. BUN of 37, creatinine of 0.62. WBC count with slight elevation at 13.1, hemoglobin 9.6, hematocrit 30.3. RECOMMENDATIONS: Increase amantadine gradually up to a goal dose of 400 mg daily. He is presently taking 100 mg daily. I would increase that to 100 mg twice a day for one week, then 100 mg in the morning and 200 mg in the evening for one week, and then 200 mg twice daily thereafter. There is evidence in the literature suggesting of improved alertness and arousal with amantadine in patients with severe traumatic brain injury, and by extrapolation, given the nature of the anoxic injury, I suspected that he has derived some benefit from amantadine already. It was initially started at a renal dose due to renal failure, and renal function has now normalized. In several studies amantadine was noted to have accelerated the pace of functional recovery during active treatment in patients with traumatic brain injuries affecting consciousness and states of consciousness. Despite this change in mental status that I observed today, he still remains unable to move any of his extremities and does receive feeds through an NG tube. Although these changes are new, I did speak with Dr. Abdalla and he reports that these mental status changes were noted even prior to the initiation of the prednisone. In light of this, I do not believe that a larger dose of prednisone would necessarily make any difference in his neurologic status. Based on the extensive evaluation that has been performed so far and an empirical trial of steroids, I do not believe that he has an underlying vasculitic process contributing to his symptoms. I suspect that his mental status is secondary to anoxic brain injury as opposed to a vasculitic etiology. Unfortunately, the prognosis in terms of recovery is grim. Thank you, again, Dr. Abdalla, for allowing me to participate in care of your patient. Please feel free to contact me with any questions or concerns. AUBREY
[2016-09-22] MEDS: Thiamine Inj 200 MG in Dextrose 5% 50 ML IV SCH (08:11)
[2016-09-22] MEDS: AMANTADINE 10 MG/ML TUBE SCH ×2 (08:16→15:38)
--- NOTE | 2016-09-22 11:09 | NUR ---
Social Work-continued d/c planning: Data& assessment:EMR reviewed. Pt is on day 30 of hospitalization for anoxic per H&P. Pt is not medically stable. states in morning rounds ID MD to see pt today. Once this has been completed, MD states palliative care will meet with pt and family and discuss PEG tube placement. Once this discussion has been completed, SW to follow up with pt and family and discuss home care,etc. SW will continue to follow. Plan:SW to follow up post discussion around PEG Tube placement. Palliative care consult pending.SW will continue to follow. JEFF Alexis
--- NOTE | 2016-09-22 12:01 | PROG NOTE ---
[address] [address] PROGRESS NOTE PATIENT: SANDY SOSA : 1975 MR#: [id number] ADMIT: 08/23/2016 JOB ID: [id number] DATE: 09/22/2016 REASON FOR FOLLOWUP: Persistent fevers in a patient with severe anoxic brain injury. INTERVAL HISTORY: Over the weekend, the patient continues to be slowly more awake and is able to answer a few questions and follows some commands as long as they involved motion of his head or neck. The patient still does not move his extremities. He does continue to have periods where he is relatively listless, but this morning when I see the patient his eyes are open and he appears to be watching [place] television. When I asked him to open his mouth he readily complies indicating obviously that he is awake and in fact can follow some commands. He does not however move his extremities at all I also discussed the case with his who thinks he is making progress. PHYSICAL EXAMINATION: Reveals a gentleman who is lying quietly in bed with his eyes open. As noted, he can open his mouth and follow other simple commands and his says he sometimes speaks and is able to discuss things with her, though in a fairly limited way. His current temperature 37.9. He has had intermittent fever spikes up into the mid 38 range on a consistent basis really since admission. Pulse is 89, respiratory rate 18, blood pressure 126/83. He is saturating well on room air. He does not appear to be in acute distress. Eyes without conjunctivitis. Oral cavity is quite benign appearing. Lungs clear anteriorly. Cardiac tones without new murmur. Abdomen benign. The patient is flaccid as was noted. LABORATORIES: Include a white count very stable at 13,000. Differential on that white count is normal. Procalcitonin is 0.11 which is basically negative and the lowest he has ever had. LFTs are normal. Urinalysis without white cells. The patient's QuantiFERON Gold has returned it is completely negative. He also has negative Fungitell, negative RPR, negative Bartonella serologies, negative West Nile serologies and a pending receptor antibody. Micro studies include many negative blood cultures, negative spinal fluid PCR panel, and negative MRSA screen. IMAGING: Includes an abdominal ultrasound done now four days ago which showed cholelithiasis without cholecystitis. IMPRESSION: This is a very unfortunate gentleman who suffered a grave brain insult which seems to be severe anoxic encephalopathy. There is little evidence here for central nervous system infection or central nervous system vasculitis. His persistent fevers are likely on a central basis, and I see no evidence for infection at this point, based on any culture or serology or other evidence we have regarding this case. RECOMMENDATIONS: 1. No antibiotics. 2. The patient is cleared for PEG tube or any other procedure, which is indicated, and I would not be dissuaded from that because of his persistent low-grade fever. 3. ID will go ahead and sign off at this time, but do not hesitate to call if there are additional challenges with this patient related to Infectious Disease. Thank you very much.
--- NOTE | 2016-09-22 14:51 | NUR ---
PLAN OF CARE DR MAJANO SPOKE WITH THE FAMILY ABOUT THE PROGNOSIS AND FUTURE PLANS FOR CARE. HE SPOKE WITH PATIENT FAMILY POSSIBILITY OF INSERTINGA PEG Addendum: 09/22/16 at 1507 by TOSHIA VASQUEZ PLAN OF CARE DR MAJANO SPOKE WITH THE FAMILY FROM [id number] ABOUT THE PATIENT'S PROGNOSIS AND FUTURE PLANS FOR CARE. THE PATIENTS WEPT WHILE THE DIVISION OPERATIONS SPECIALIST IN THE ROOM TRANSLATED THE DOCTORS WORDS. HE SPOKE WITH THEM ABOUT THE POSSIBILITY OF INSERTING A PEG TUBE AND MAKING AN APPOINTMENT FOR A CONSULTATION WITH PALLIATIVE CARE. THIS WOULD BE A SHIRT MAKER CHOICE FOR FEEDING, IF THE FAMILY CHOOSES TO MAKE THAT DECISION.
--- NOTE | 2016-09-22 14:58 | PCM.PNMED ---
Subjective Date of Service Sep 22, 2016 Subjective Unable to obtain ROS 2ndry to being nonverbal and not interactive Exam Vital Signs Vital Sign - Last Date Time Temp Pulse Resp B/P Pulse Ox O2 Delivery O2 Flow Rate FiO2 09/22/16 14:00 85 09/22/16 12:30 Supplement Oxygen 09/22/16 10:00 37.5 14 114/73 98 Intake and Output 09/21/16 09/21/16 09/22/16 Cumulative From/Thru 15:00 23:00 07:00 08/23/16 05:20 - 09/22/16 06:18 Intake Total 1806 ml 3643 ml 145517 ml Output Total 1100 ml 1050 ml 074679 ml Balance 706 ml 2593 ml 8570 ml Intake Oral 560 ml IV Total 333 ml 99428 ml Tube Feeding 773 ml 1632 ml 42345 ml Tube Irrigant 700 ml 2011 ml 30207 ml Output Urine Total 1100 ml 1050 ml 45357 ml Stool Total 00496 ml Gastric Drainage Total 1070 ml Ultrafiltrate 4700 ml Other 30 ml # Bowel Movements 11 Exam General: No Acute Distress Head: Normal Eyes: Scleral Anicteric Nose: Mucous Membr Moist/Malo Mouth: Mucous Membr Moist/Malo Neck: Supple Chest & Lungs: Chest Wall Normal, Clear to auscultation bilat Cardiovascular: Regular Rate/Rhythm Pulses: NL DP, PT Extremities: No cyanosis/clubbing/edema bilat Neurological: Today patient noted to be able to tell me his name. He was able to close his eyes and then opened his eyes when instructed. However, I was not able to illicit these results earlier in the day nor later at the end of the exam. IVs and Medications Medications Reviewed: Medications were reviewed in detail Lab and Diagnostics Result Diagram: 09/22/16 0400 09/20/16 0430 Microbiology Blood cultures pending MRSA swab pending X-Rays, CTs and MRIs CT BRAIN WITHOUT CONTRAST IMPRESSION: No acute disease. Dictated by: Hemant Gallegos M.D. on 08/23/2016 CT BRAIN WITHOUT CONTRAST IMPRESSION: 1. Diffuse bilateral hypodensity of the globus pallidus. This is a new finding when compared with the study dated 08/23/16. Differential considerations include anoxic injury, carbon monoxide neurotoxicity, excessive alcohol ingestion, and methanol or ethylene glycol ingestion. Dictated by: Dinora Kang M.D. 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 Dictated by: Jacob Mosqueda M.D. on 08/28/2016 MRI STROKE PROTOCOL IMPRESSION: BRAIN MRI: Continued worsening of ischemic injury to the brain parenchyma, symmetric bilaterally, and best seen in the deep white matter of the lentiform nuclei, the wolfe radiata, and the centrum semiovale. No associated hemorrhage. BRAIN MR ANGIOGRAM: No acute disease to the intracranial arterial vasculature. NECK MR ANGIOGRAM: Normal cervical MR angiogram. The estimate of stenosis included in the report of the imaging study was calculated using the NASCET method Dictated by: Jack Padilla M.D. on 09/15/2016 CT CHEST WITHOUT CONTRAST IMPRESSION: Small basal left pleural effusion is unchanged, with associated left lower lobe compressive atelectasis. Superimposed pneumonia therefore cannot be excluded. Dictated by: Binh Ochoa M.D. on 09/07/2016 at 13:47 US RENAL SONOGRAM IMPRESSION: No hydronephrosis. Right renal cyst. Dictated by: Shobha Vale M.D. on 08/24/2016 US ABDOMEN, LIMITED IMPRESSION: Cholelithiasis, without justin gallbladder wall thickening to suggest acute cholecystitis at this time. Dictated by: Binh Ochoa M.D. on 09/07/2016 MR ABDOMEN MRCP IMPRESSION: 1. Markedly limited study due to motion artifact. 2. Cholelithiasis without evidence of cholecystitis. 3. No biliary ductal dilatation or definite choledocholithiasis. 4. No peripancreatic edema to suggest pancreatitis an MRI. No discrete pseudocyst identified. Dictated by: Bruce Valadez M.D. on 09/08/2016 at 17:47 US ABDOMEN IMPRESSION: 1. Cholelithiasis. 2. Mild gallbladder wall thickening. Acute cholecystitis cannot be excluded. 3. Echogenic liver. Finding typically represents fatty infiltration; however, finding is nonspecific and correlation with clinical and laboratory findings is recommended to exclude other etiologies including hepatic cirrhosis. 4. Slightly echogenic right kidney suspicious for developing medical renal disease. Please correlate with clinical and laboratory data. Dictated by: Swathi Jimenes MD, PhD on 08/29/2016 US ABDOMEN, LIMITED IMPRESSION: Cholelithiasis, without justin gallbladder wall thickening to suggest acute cholecystitis at this time. Dictated by: Binh Ochoa M.D. on 09/07/2016 X-RAY CHEST ONE VIEW, PORTABLE IMPRESSION: No acute disease is seen a semiupright portable chest. Tubes are considered appropriate radiographically. Dictated by: Hemant Gallegos M.D. on 08/23/2016 X-RAY CHEST ONE VIEW, PORTABLE IMPRESSION: Support lines as above. Otherwise, no acute pulmonary process. Dictated by: Shobha Vale M.D. on 08/24/2016 X-RAY CHEST ONE VIEW, PORTABLE IMPRESSION: No acute cardiopulmonary disease process. Dictated by: Swathi Jimenes MD, PhD on 08/25/2016 X-RAY CHEST ONE VIEW, PORTABLE IMPRESSION: 1. Left basilar atelectasis. Otherwise lungs are clear. 2. ET and enteric tubes. Dictated by: Jacob Mosqueda M.D. on 08/27/2016 at 9:53 X-RAY CHEST ONE VIEW, PORTABLE IMPRESSION: Stable left basilar atelectasis and support lines. Dictated by: Jacob Mosqueda M.D. on 08/28/2016 at 7:54 Date of Service: 09/15/16 1757 PROCEDURE: MRI STROKE PROTOCOL ([id number]) IMPRESSION: BRAIN MRI: Continued worsening of ischemic injury to the brain parenchyma, symmetric bilaterally, and best seen in the deep white matter of the lentiform nuclei, the wolfe radiata, and the centrum semiovale. No associated hemorrhage. BRAIN MR ANGIOGRAM: No acute disease to the intracranial arterial vasculature. NECK MR ANGIOGRAM: Normal cervical MR angiogram. The estimate of stenosis included in the report of the imaging study was calculated using the NASCET method Dictated by: Jack Padilla M.D. on 09/15/2016 at 21:36 Approved by: Jack Padilla M.D. on 09/15/2016 at 21:42 Additional Diagnostics ABG DateTimeAnalyzed 10:20:00 -_ pH ____7.354 - 7.350 7.450 pCO2 ___31.5__ -mmHg 35.0 45.0 pO2 160 -mmHg 69.0 116 HCO3- ___17.1__ -mmol/L 22.0 26.0 FIO2 ___45.0__ -% PRVC 20 - PEEP ____8.0__ -cmH2O Assessment & Plan 41 year old male with known history of alcohol and drug use presented unresponsive after being found with vomit around him, sedated and intubated for acute hypoxemic respiratory failure secondary to aspiration for 5 days and extubated on hospital day 6 following successful spontaneous breathing trial. # Acute Brain Injury, present on admission. Ongoing - Strongly suspected anoxic brain injury given presenting history - Secondary to aspiration and intoxication. Patient had large volume of vomit suctioned out in the ED. - Initial EEG showed evidence of slowing but no other abnormalities to suggest that the patient is having clinical seizures causing his symptoms. - Intubated on 08/23/16, Extubated on 08/28/16. - Zosyn was given for 7 days earlier in the hospital course but was stopped per ID recommendation. - Patient with reported neurologic deterioration few days after extubation and transfer out of ICU - Repeat MRI of brain on 09/15/16 showing: "Continued worsening of ischemic injury to the brain parenchyma, symmetric bilaterally" - Discussed new MRI findings with neuro consult. ? if these findings due to underlying vasculitis, infection or other etiology - Post LP and CTA brain on 09/16/16. - Appreciate neurology consult. Will followup with recs - Above studies and findings were discussed with neuro consult (Dr. Jara) on 09/17/16 who also reviewed these findings with [facility] neurology. - Anoxic brain injury and its progression is most likely diagnosis at this time. However, given no obvious source of infection and remote likelihood of vasculitis, per discussion with Dr. Jara started a trial of steroid therapy (Prednisone 80mg daily x 3 days) on 09/17/16 to see if we will achieve any significant improvement in neuro symptoms. No obvious improvement noted with 3 days of Prednisone treatment. - Per neuro recommendation increased Amantadine to 100mg bid on 09/20/16 - Increase amantadine gradually up to a goal dose of 400 mg daily. 100 mg twice a day for one week, then 100 mg in the morning and 200 mg in the evening for one week, and then 200 mg twice daily thereafter. # Acute fevers, not present on admission. ongoing - Appreciate ID consult. Will followup with recs - Per ID consult, fevers thought to be likely due to central etiology. - Initially though due to Pancreatitis or Cholecystitis. UA is negative - Completed course of Ertapenem. - MRCP did not show further evidence of Pancreatitis or Cholecystitis. - Blood cultures negative. - Vasculitis workup and LP as noted above # Acute dysphagia. Likely due to anoxic brain injury noted above. Present on admission. - Per earlier notes: "After Family meeting on 09/13, has requested MBS attempted again and would like to be present." - Pt failed MBS on 09/15 due to inability to fully follow instructions. - Continue with Ngtube feed - Discussed PEG placement on 09/22/16 with patient's . At this time she wants everything done to keep patient alive including a PEG tube. However, she also wants the rest of the family to be present for decision making and to have doctors explain things to the rest of the family as well. - Reconsult palliative care to further discuss goals of care with family members and ensure that everyone is on the same page before moving forward with PEG tube. # Mild acute hypernatremia, not present on admission, active. - Appreciate nephrology consult. Will followup with recs # Acute Kidney Injury, present on admission. Resolved - Cr on admission at 3.52 and increasing after admission. Unknown history of kidney injury. - Appreciate nephrology consult. Will followup with recs - Hemodialysis done daily starting 08/25/16 and then stopped. No longer on hemodialysis and catheter removed - Free water flushes 300 ml q 4 hr. - Continue DDAVP for now # Acute Cholecystitis, present on admission. Resolved - Acute cholecystitis based on HIDA scan and abdominal CT. - Gen. surgery was consulted, Dr. Dash as intial thought of CCK. Upon follow up MRCP was negative for Acute Pancreatitis and Chronic cholecystitis. - Resolved cholelithiasis w/o choledocholithiasis. - No surgery indicated at this time given improvement. - TPN stopped on 09/06/16 as this was thought to be worsening cholecystitis and pancreatitis. # Acute Metabolic Acidosis, present on admission. Improved - Likely secondary to lactic acidosis and uremia - Monitor CMP: # Acute Rhabdomyolysis, present on admission, [place] [id number]. Likely secondary to being in one position for 9 hours. - Wound care consult # Acute Hyperkalemia, present on admission, resolved - Kayexalate via feeding tube was given per nephro on 09/07 - Continue to monitor # Acute stage II ulcers in the buttock areas, present on admission. - Continue with wound care and supportive care # History of alcohol dependence - No need to institute CIWA protocol at this time # History of drug dependence - Known user of cocaine and ice - Per family, last known use is around 5 months ago. Dispo: pending goals of care, possible PEG tube, and likely placement GI Prophylaxis: Not indicated (Patient extubated) VTE Prophylaxis: Sub-Q Heparin (Unfractionated), SCDs VTE Mechanical Devices: Intermittant Pneumatic CD Resuscitation Status: CPR: Attempt Resuscitation ( is ADM) Time spent 55 minutes was spent today on exam as well discussing patient's current condition with patient's (via doll wig maker) and answering numerous questions. Macario Abdalla Sep 22, 2016 14:58
--- NOTE | 2016-09-22 15:16 | NUR ---
NUTRITION FOLLOW UP: ASSESS: 41 YO male with anoxic brain injury, continues to be alert but non-verbal. JUWAN has resolved. Nephrology will likely sign off but wants to continue 350 ML H2O flush every 4 hours to match ins/outs. Pt failed MBS 09/15, ST recommending PEG, appears desires PEG tube but wishes for family meeting with palliative to discuss pursuing PEG tube. PMHx: ETOH abuse. DIET: NPO. NUTRITION SUPPORT: Jevity 1.5 at goal rate of 70 ML/hr, 350 ML H20 flush every 4 hours providing 2415 kcals, 103 g protein, 3324 ml free H2O. LABS: Reviewed.BUN 37, Cr 0.62, Glu 128, ALT 126, Alb 3.6, Lipase 368 (trending down) MEDICATIONS: Reviewed. GI: FMS in place: 250 mL output (09/20) SKIN: Wounds healed per wound care note. ANTHROPOMETRICS: Current Wt: 87.3 kg. Admit wt: 95.1 kg. IBW: 72.7 kg ESTIMATED NEEDS: Calories: 5370-3858 kcal/day (25-30 kcal/kg BW) Protein: 85-110 g protein (1.2-1.5 g/kg BW IBW) Fluid: Approx. ~5272-0377 mL (25-35 mL/kg BW) but fluids per nephrology at this time. NUTRITION DIAGNOSIS: 1) Inadequate oral intake related to inability to consume sufficient energy due to cognition, as evidenced by NPO status - IMPROVED, PT TF AT GOAL. 2) Increased nutrient needs related to increased needs for disease state as evidenced by JUWAN and current skin issues - RESOLVED INTERVENTION: 1) Recommend continuing current TF at this time. 2.) Fluids per nephrology--350 ml every 4 hrs. MONITOR/EVALUATE: Enteral feeding, labs, weights, MBS, nutrition status. Follow per moderate nutrition risk guidelines. Addendum: 09/23/16 at [address] MD requested to changed TF to bolus TF. Recommend TF bolus of 400 mL 4 times per day (0700, 1100, 1500, 1900) with 25 mL H2O flush before and after each bolus. Also recommend 400 ML H2O bolus 4 times per day (0900, 1300, 1700, 2100). Fluids provided from flush dose and bolus dose will be the same volume as nephrology has ordered (300 mL every 4 hours). Will continue to monitor TF tolerance.
[2016-09-23] MEDS: Heparin 5,000 Unit/mL Inj SUBQ SCH ×3 (00:38→15:51)
[2016-09-23] MEDS: SODIUM CHLORIDE 0.9% IV SCH ×2 (01:54→15:50)
[2016-09-23] MEDS: DESMOPRESSIN IV SCH ×2 (01:54→15:50)
[2016-09-23 05:23] VITALS: BP 122/77; PULSE 77; RESP 17; O2SAT 97
--- NOTE | 2016-09-23 06:26 | NUR ---
Turning Pt. continues on Q2 turning, NGT, FC and FMS intact and patent, family at bedside, hourly checks and will continue to monitor any changes in condition.
[2016-09-23 09:00] VITALS: BP 124/81; PULSE 90; PULSE 93; RESP 20; O2SAT 98
[2016-09-23] MEDS: AMANTADINE 10 MG/ML TUBE SCH ×2 (09:13→22:09)
[2016-09-23] MEDS: Acetaminophen 32.5 mg/mL 20 mL Liquid PO PRN ×2 (09:13→15:51)
--- NOTE | 2016-09-23 10:24 | NUR ---
Shift Report Patient neurological exam remains unchanged, see assessment charting. q2hr turns, skin protection, family updates continue. Tele, FC, DEWAYNE d/c'd today per order.
[2016-09-23 12:11] VITALS: BP 126/84; PULSE 90; RESP 20; O2SAT 97
--- NOTE | 2016-09-23 12:27 | NUR ---
Social Work Note: Continued Discharge Planning Data& Assessment: Per MD in multidisciplinary rounds, palliative care MD is meet with pt family tomorrow to discuss goals of care and pt prognosis. SUPERVISOR BRAKE REPAIR attempted again to email state front desk representative through [facility] regarding the wait list for SNF placement for AEM patients ([email or web address]). Wait list was last said to be a year long. SUPERVISOR BRAKE REPAIR to continue to follow. 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 Pt likely to discharge home with family caregiving and support. PEG tube placement still being discussed with pt family. Palliative care meeting with family tomorrow. SUPERVISOR BRAKE REPAIR to continue to follow. JEFF Swan
[2016-09-23 12:46] LABS: BASOPHILS % (AUTO) 0.4 % (0-3); MONOCYTES % (AUTO) 7.1 % (4-12); Mean Corpuscular Volume 91.2 fL (81-100); Platelet Count 149 bil/L (150-400)
--- NOTE | 2016-09-23 12:51 | PCM.PNMED ---
Subjective Date of Service Sep 23, 2016 Subjective non verbal but eyes open and alert . continues to have low-grade fever Exam Vital Signs Vital Sign - Last Date Time Temp Pulse Resp B/P Pulse Ox O2 Delivery O2 Flow Rate FiO2 09/23/16 12:11 37.4 90 20 126/84 97 Room Air Intake and Output 09/22/16 09/22/16 09/23/16 Cumulative From/Thru 15:00 23:00 07:00 08/23/16 05:20 - 09/23/16 06:51 Intake Total 1159 ml 1250 ml 139218 ml Output Total 1750 ml 1000 ml 766086 ml Balance -591 ml 250 ml 8229 ml Intake Oral 560 ml IV Total 133 ml 50 ml 79995 ml Tube Feeding 1200 ml 54606 ml TPN/PPN 726 ml 726 ml Tube Irrigant 300 ml 85439 ml Output Urine Total 1450 ml 700 ml 16855 ml Stool Total 300 ml 25797 ml Gastric Drainage Total 1070 ml Ultrafiltrate 4700 ml Other 300 ml 330 ml # Bowel Movements 11 Exam General: No Acute Distress Head: Normal Eyes: Scleral Anicteric Nose: Mucous Membr Moist/[place] Mouth: Mucous Membr Moist/[place] Neck: Supple Chest & Lungs: Chest Wall Normal, Clear to auscultation bilat Cardiovascular: Regular Rate/Rhythm Pulses: NL DP, PT Extremities: No cyanosis/clubbing/edema bilat Neurological: alert ,eyes open, non verbal. not following instructions. Responds to pain. Very limited movement of all extremities noted IVs and Medications Medications Reviewed: Medications were reviewed in detail Lab and Diagnostics Result Diagram: 09/22/16 0400 09/20/16 0430 Microbiology Blood cultures pending MRSA swab pending X-Rays, CTs and MRIs CT BRAIN WITHOUT CONTRAST IMPRESSION: No acute disease. Dictated by: Hemant Gallegos M.D. on 08/23/2016 CT BRAIN WITHOUT CONTRAST IMPRESSION: 1. Diffuse bilateral hypodensity of the globus pallidus. This is a new finding when compared with the study dated 08/23/16. Differential considerations include anoxic injury, carbon monoxide neurotoxicity, excessive alcohol ingestion, and methanol or ethylene glycol ingestion. Dictated by: Dinora Kang M.D. 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 Dictated by: Jacob Mosqueda M.D. on 08/28/2016 MRI STROKE PROTOCOL IMPRESSION: BRAIN MRI: Continued worsening of ischemic injury to the brain parenchyma, symmetric bilaterally, and best seen in the deep white matter of the lentiform nuclei, the wolfe radiata, and the centrum semiovale. No associated hemorrhage. BRAIN MR ANGIOGRAM: No acute disease to the intracranial arterial vasculature. NECK MR ANGIOGRAM: Normal cervical MR angiogram. The estimate of stenosis included in the report of the imaging study was calculated using the NASCET method Dictated by: Jack Padilla M.D. on 09/15/2016 CT CHEST WITHOUT CONTRAST IMPRESSION: Small basal left pleural effusion is unchanged, with associated left lower lobe compressive atelectasis. Superimposed pneumonia therefore cannot be excluded. Dictated by: Binh Ochoa M.D. on 09/07/2016 at 13:47 US RENAL SONOGRAM IMPRESSION: No hydronephrosis. Right renal cyst. Dictated by: Shobha Vale M.D. on 08/24/2016 US ABDOMEN, LIMITED IMPRESSION: Cholelithiasis, without justin gallbladder wall thickening to suggest acute cholecystitis at this time. Dictated by: Binh Ochoa M.D. on 09/07/2016 MR ABDOMEN MRCP IMPRESSION: 1. Markedly limited study due to motion artifact. 2. Cholelithiasis without evidence of cholecystitis. 3. No biliary ductal dilatation or definite choledocholithiasis. 4. No peripancreatic edema to suggest pancreatitis an MRI. No discrete pseudocyst identified. Dictated by: Bruce Valadez M.D. on 09/08/2016 at 17:47 US ABDOMEN IMPRESSION: 1. Cholelithiasis. 2. Mild gallbladder wall thickening. Acute cholecystitis cannot be excluded. 3. Echogenic liver. Finding typically represents fatty infiltration; however, finding is nonspecific and correlation with clinical and laboratory findings is recommended to exclude other etiologies including hepatic cirrhosis. 4. Slightly echogenic right kidney suspicious for developing medical renal disease. Please correlate with clinical and laboratory data. Dictated by: Swathi Jimenes MD, PhD on 08/29/2016 US ABDOMEN, LIMITED IMPRESSION: Cholelithiasis, without justin gallbladder wall thickening to suggest acute cholecystitis at this time. Dictated by: Binh Ochoa M.D. on 09/07/2016 X-RAY CHEST ONE VIEW, PORTABLE IMPRESSION: No acute disease is seen a semiupright portable chest. Tubes are considered appropriate radiographically. Dictated by: Hemant Gallegos M.D. on 08/23/2016 X-RAY CHEST ONE VIEW, PORTABLE IMPRESSION: Support lines as above. Otherwise, no acute pulmonary process. Dictated by: Shobha Vale M.D. on 08/24/2016 X-RAY CHEST ONE VIEW, PORTABLE IMPRESSION: No acute cardiopulmonary disease process. Dictated by: Swathi Jimenes MD, PhD on 08/25/2016 X-RAY CHEST ONE VIEW, PORTABLE IMPRESSION: 1. Left basilar atelectasis. Otherwise lungs are clear. 2. ET and enteric tubes. Dictated by: Jacob Mosqueda M.D. on 08/27/2016 at 9:53 X-RAY CHEST ONE VIEW, PORTABLE IMPRESSION: Stable left basilar atelectasis and support lines. Dictated by: Jacob Mosqueda M.D. on 08/28/2016 at 7:54 Date of Service: 09/15/16 1757 PROCEDURE: MRI STROKE PROTOCOL ([id number]) IMPRESSION: BRAIN MRI: Continued worsening of ischemic injury to the brain parenchyma, symmetric bilaterally, and best seen in the deep white matter of the lentiform nuclei, the wolfe radiata, and the centrum semiovale. No associated hemorrhage. BRAIN MR ANGIOGRAM: No acute disease to the intracranial arterial vasculature. NECK MR ANGIOGRAM: Normal cervical MR angiogram. The estimate of stenosis included in the report of the imaging study was calculated using the NASCET method Dictated by: Jack Padilla M.D. on 09/15/2016 at 21:36 Approved by: Jack Padilla M.D. on 09/15/2016 at 21:42 Additional Diagnostics ABG DateTimeAnalyzed 10:20:00 -_ pH ____7.354 - 7.350 7.450 pCO2 ___31.5__ -mmHg 35.0 45.0 pO2 160 -mmHg 69.0 116 HCO3- ___17.1__ -mmol/L 22.0 26.0 FIO2 ___45.0__ -% PRVC 20 - PEEP ____8.0__ -cmH2O Assessment & Plan 41 year old male with known history of alcohol and drug use presented unresponsive after being found with vomit around him, sedated and intubated for acute hypoxemic respiratory failure secondary to aspiration for 5 days and extubated on hospital day 6 following successful spontaneous breathing trial. # Acute anoxic Brain Injury, present on admission. Ongoing - Strongly suspected anoxic brain injury given presenting history - Secondary to aspiration and intoxication. Patient had large volume of vomit suctioned out in the ED. initial toxicology screen done only for salycilate, alcohol and acetaminophen which is unremarkable - Initial EEG showed evidence of slowing but no other abnormalities to suggest that the patient is having clinical seizures causing his symptoms. - Intubated on 08/23/16, Extubated on 08/28/16. - Zosyn was given for 7 days earlier in the hospital course but was stopped per ID recommendation. - Patient with reported neurologic deterioration few days after extubation and transfer out of ICU - Repeat MRI of brain on 09/15/16 showing: "Continued worsening of ischemic injury to the brain parenchyma, symmetric bilaterally" - latest MRI findings were discussed with neurologist, if these findings due to underlying vasculitis, infection or other etiology - Anoxic brain injury and its progression is most likely diagnosis at this time. However, given no obvious source of infection and remote likelihood of vasculitis, per discussion with Dr. Jara started a trial of steroid therapy (Prednisone 80mg daily x 3 days) on 09/17/16 to see if we will achieve any significant improvement in neuro symptoms. No obvious improvement noted with 3 days of Prednisone treatment. - Per neuro recommendation increased Amantadine to 100mg bid on 09/20/16 - Increase amantadine gradually up to a goal dose of 400 mg daily. 100 mg twice a day for one week, then 100 mg in the morning and 200 mg in the evening for one week, and then 200 mg twice daily thereafter. - Post LP and CTA brain on 09/16/16. - Appreciate neurology consult. Will followup with recs - findings and plan were discussed with neuro consult (Dr. Jara) by prior hospitalist on 09/17/16 . Neuro reviewed these findings with [facility] neurology. # Acute fevers, not present on admission. ongoing - Appreciate ID consult. Will followup with recs - Per ID consult, fevers thought to be likely due to central etiology. - Initially though due to Pancreatitis or Cholecystitis. UA is negative - Completed course of Ertapenem. - MRCP did not show further evidence of Pancreatitis or Cholecystitis. - Blood cultures negative. - Vasculitis workup and LP as noted above # Acute dysphagia. Likely due to anoxic brain injury noted above. Present on admission. - Per earlier notes: "After Family meeting on 09/13, has requested MBS attempted again and would like to be present." - Pt failed MBS on 09/15 due to inability to fully follow instructions. - Continue with Ngtube feed - Discussed PEG placement on 09/22/16 with patient's . At this time she wants everything done to keep patient alive including a PEG tube. However, she also wants the rest of the family to be present for decision making and to have doctors explain things to the rest of the family as well. -palliative care to further discuss goals of care with family members and ensure that everyone is on the same page before moving forward with PEG tube. # Mild acute hypernatremia, not present on admission, active. - Appreciate nephrology consult. Will followup with recs # Acute Kidney Injury, present on admission. Resolved - Cr on admission at 3.52 and increasing after admission. Unknown history of kidney injury. - Appreciate nephrology consult. Will followup with recs - Hemodialysis done daily starting 08/25/16 and then stopped. No longer on hemodialysis and catheter removed - Free water flushes 300 ml q 4 hr. - Continue DDAVP for now # Acute Cholecystitis, present on admission. Resolved - Acute cholecystitis based on HIDA scan and abdominal CT. - Gen. surgery was consulted, Dr. Dash as intial thought of CCK. Upon follow up MRCP was negative for Acute Pancreatitis and Chronic cholecystitis. - Resolved cholelithiasis w/o choledocholithiasis. - No surgery indicated at this time given improvement. - TPN stopped on 09/06/16 as this was thought to be worsening cholecystitis and pancreatitis. # Acute Metabolic Acidosis, present on admission. Improved - Likely secondary to lactic acidosis and uremia - Monitor CMP: # Acute Rhabdomyolysis, present on admission, [place] [id number]. Likely secondary to being in one position for 9 hours. - Wound care consult # Acute Hyperkalemia, present on admission, resolved - Kayexalate via feeding tube was given per nephro on 09/07 - Continue to monitor # Acute stage II ulcers in the buttock areas, present on admission. - Continue with wound care and supportive care # History of alcohol dependence - No need to institute CIWA protocol at this time # History of drug dependence - Known user of cocaine and ice - Per family, last known use is around 5 months ago. Dispo: pending goals of care, possible PEG tube, and likely placement GI Prophylaxis: Not indicated (Patient extubated) VTE Prophylaxis: Sub-Q Heparin (Unfractionated), SCDs VTE Mechanical Devices: Intermittant Pneumatic CD Resuscitation Status: CPR: Attempt Resuscitation ( is ADM) Catalino Salvador MD Sep 23, 2016 12:51 Catalino Salvador MD Sep 23, 2016 12:51
[2016-09-23 12:55] VITALS: BP 126/84; PULSE 90; RESP 12; O2SAT 97
--- NOTE | 2016-09-23 13:05 | NUR ---
Palliative care note D/A: Palliative care has received an order to please re-engage with family in regards to possible PEG tube placement. Pt is noted to have an NG tube at this time and if family wishes to proceed with nourishment for dc, PEG will be warranted. Dr. Cabrera to see pt today. Case is discussed with her. This worker calls [facility] and discusses with Lianna. Do not have an hour time frame today. Arranged for FCTM for 09/24/16 from 1-2. Dr. Cabrera aware and will inform family today. Review of chart reveals that [facility] unable to accept. [facility] staff have been communicating with [facility] about placing pt on SNF list. Note that it is about a year long wait. Phone call to Daisy AGUILAR dcp to discuss. She will confer with Chante about the list. Discussed that pt family may well become overwhelmed with total care at home. Having pt on wait list with possible SNF bed placement down the road may work to help them cope with very difficult situation. Dr. Cabrera to meet with pt today to attempt to discuss pt wishes. Have arranged for [facility] for today from 1:15 to 2:00. P: Palliative care to follow. Genet NANCE, [facility]
[2016-09-23 13:17] LABS: Magnesium 2.2 mg/dL (1.6-2.6); Phosphorus 3.9 mg/dL (2.5-4.9)
--- NOTE | 2016-09-23 15:37 | NUR ---
CERAMIC TILE INSTALLER to sign off as patient has not changed in alertness status or swallow ability over the past week. Enteral feeding is recommended. Skilled CERAMIC TILE INSTALLER is not appropriate at this time. Please re-refer if warranted.
--- NOTE | 2016-09-23 16:14 | PCM.PALLBR ---
Palliative Care Recommendation Summary of palliative recommendations: -Symptom management (Pain/other): per attending -DPOA/Advanced Directives/POLST: 1. FULL Code 2. is designated decision maker. 3. No prior paperwork for AD or POLST. -Family/emotional support: strong support from large, local family. -Spiritual support: family is Quaker and the culture of Catholicism and regular mass attendance is part of their life. They don't want a hose tester to visit at this time as they feel, if the patient knew he would panic and think he is dying. Patient/Family Goals: Pt unable to make any decision due to severity of his injury. Patient's Stella, his designated decision maker, and his family, want all possible interventions to help pt get back to his baseline health. 09/23/16-Family discussion with his . Patient is not able to make his needs known. Reviewed issues: 1. any possibility of patient being able to give some input re ongoing treatment.--for now the answer is NO 2. ? PEG to maintain nutrition even if able to take in small amt of food in the future.Stella feels needs to be discussed with other family members for acceptance. Dr. Lopez does not think infection 3. - Stella would like to have a swallow eval to see if he can assist in nutrition. He seems to be able to deal with his own secretions and he makes some effort to chew 4. Financial issues-his states she lost her job and they have 3 children. She would not be able to afford much for tube feeding let alone other supplies like adult diapers etc She is not able to hire caregivers and her mother in law states she is going back to [place]. His is adamant that the pt should stay here with her. 5. Reviewed with his to try and see his disabilities through his eyes to decide if he is OK with this course of care. 6 Quaker jenae is very important to both of them- she feels her reading of the bible to him calms him 7. continues to hold out jenae that he will make a complete recovery-- reviewed need to plan in case this is not the option meeting set up with mechanical service specialist for tomorrow at 1 pm to hopefully involve more extensive discussion and make plan to move ahead on PEG which I believe they will want 09/08: Family meeting today with Yaneth Prieto, Genet RIOS, Intrepreter and Stella, pt's sister Guillermina and his mother Cyndi in a room outside pt's room (per 's request). Both Hazel Mcmahan and Yaneth examined pt prior to meeting. 1. Dr. Mcmahan gave his opinion (based on exam and imaging) that Mr. Ann may gain enough awareness to participate in a limited way, to speak a few words and acknowledge some family members at times. However, the imaging suggests that he will not likely be able to move his arms and legs. And it is unclear, how much understanding or speech he may regain. He will need others to care for him, feed him, clean him, dress him. Dr. Wolfe agreed and reiterated the clinical opinion that he will need caregivers around the clock. 2. expressed her opinion that she knows her better as a human being than the medical team and believes that he understands a lot of what she tells him. She is sure he will get heal to a much greater degree than the doctors are predicting. 3. After Dr. Mcmahan left, Dr. Minerva Wilson arrived and gave further information about Mr. Ann. His gallbladder is improving, but his pancreas is now inflamed. She will change his antibiotics and get an imaging for the pancreas then a GI consult for recommendations. 4. Family asked about inpatient rehab or PT for pt in his home. Genet ChaviraBLANCA jones, gently explained to family that Mr. Ann's form of insurance only covers emergency care in hospital (because he is not a resident of [place] and no aftercare as an outpatient or detention pt. Family asked about paperwork for financing the emergency care here at [facility]. Ms. George will refer them to Case Management. 5. Family asked about moving pt to [place] for more aftercare. Again, they were referred to Case Management who will work with family to explore options. 6. Family asked about feeding pt by mouth, and said ST had seen pt today, and Mr. Ann could take small amount of ice chips in mouth. Pall Care Team agrees that is a good step but not sufficient to give him the calories he needs and that tube feeding by nose may need to continue for a while. We also asked family re: possible PEG if needed in future, and they favor PEG placement if needed. 7. Family seems to have difficulty understanding the impaired consciousness that Mr. Ann has now. He is awake for a few minutes and then spends long periods with decreased LOC, appearing to be asleep but not awakening with deep sternal rub. Dr. Wolfe described this and tried to explain that this brain injury may have long periods of unconsciousness with short periods of arousal but the person may not be truly aware of who they are, where they are, who is around them. This may go on with some improvements, but not back to his prior level of well-being before his brain injury. It is not clear that family grasps this information. Medical team will likely have to continue to support them with further counseling. (Time spent in this conference: 70 minutes, 12noon-1:10pm) 09/05: Dr. Wolfe and mechanical service specialist met with Stella, pt's sister Guillermina and his mother Cyndi in a room adjacent to pt's room (per 's request). wanted to know why surgeon had visited her , and whether he would get a gall bladder surgery. She also wanted to know results of a brain test she said was scheduled from 2-4pm 09/04. Dr. Wolfe explained that Mr. Ann has gallbladder inflammation, but it is not clear he needs surgery, that the surgeon was asked to assess him and determine best path. Surgery note not yet in EMR. Dr. Wolfe not aware of any brain testing scheduled for 09/04 and insists it occurred. asked RN to contact Dr. Wilson to see if she could clarify this for , as perhaps a test was ordered and done whose results are not on EMR yet. I reminded family that we want to meet with them and neurologist Dr. Mcmahan at noon on ThuSeptember 08. I asked them how many other family members might be at this meeting, but they don't know yet. Sister will tell RN later who will let our office know. 09/04: Drs. Wolfe and Gisel met with and mechanical service specialist in a.m. to re- introduce the PC team and examine her . After exam, we offered sympathetic listening and support. We asked to meet with her and pt's mother at 1pm today. She consented. We met again, outside pt's room in a separate consult room at her request. She is worried that her can understand our conversation and would be discouraged by any bad news. Present were: Drs. Wolfe, Gisel, Steve, mechanical service specialist, Genet George (), and Stella, pt's sister Guillermina and his mother Cyndi. Dr. Wilson gave a brief medical update, acknowledging to the family that pt has shown small signs of improvement, but she is very cautious about what this means for him. Dr. Wolfe gave news from Dr. Haynes that pt's kidneys are improving enough that he will likely not need any more dialysis. . 1. We gently explained to family that Santiago's brain injury is going to be a long, slow process of waiting and helping him before we know what he will be able to do for himself. 2. Dr. Wolfe told them that he may not be able to get out of a bed, that he may not be able to eat, bathe, dress on his own, that he may not be able to be aware of when he needs to use the bathroom. Someone will have to take care of him for all these things, and it will probably be a year before the neurology doctors can give a better idea of how much self-care he can recover. 3. His asked about his speaking abilities. He does speak at times, and it seems to be clear speech and meaningful when it occurs. Dr. Wilson says she will ask Dr. Mcmahan about this, as we don't know how much speaking ability or thinking ability he will recover. 4. We invited family to a meeting Thursday with all of us and Dr. Mcmahan, which gives us more time to observe Santiago tomorrow and over the weekend- -as well as giving the family members who work time to try to arrange to get off for this meeting. 5. We offered supportive listening and answered questions. Please see Ms. George's BLANCA note from re: additional information on family responses today. 08/26 Family Conference Team Meeting (FCTM): On Hospital Day 4 Palliative Care had an initial meeting with family to gather background information about the pt and give a medical update compiled by the Attending hospitalist team through a Serbian Speaking Aquarium Specialist. We met with family at length. This included pt mother Cyndi, sister Guillermina, nephew Paresh, cousin Sina and his spouse Jacquelyn and patient's spouse Elise Douglas (mechanical service specialist services), Genet George (), Hazel Wolfe, and Jyotsna--all from [facility] Team-- and Dr. Rodriguez ([place] [facility] boarder steam). Stella notes that she and pt have three children; Santiago Sánchez (13), Zofia (8) and Radha (6). Discussed at length pt current condition and answered questions about medical issues. Dr. Hastings explained that neurological workup is ongoing and outcome is not clear. Dr. Wolfe went over treatments being used to care for pt's lungs and kidneys. 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 He is proud of his capabilities and has learned his skills on the job. Family is Quaker and is part of the caodaism at [facility] in [place]. Pt enjoys his children and is noted to be a good father. He is described as someone that others esteem and look up to, someone others love, he thinks about the future of his children and plans for them and is a hard worker. Pt has long struggled with depression. He has felt sad that he was raised by his grandmother and for reasons that are unclear, not by his parents. He longed to have a family of his own so that he could be a positive influence and offer parental love and support for his children that he feels he didn't receive. He has disclosed to his spouse and sister that he had depression and at times wished that he had not been born. Family does not think that current episode was a suicide attempt. Pt comes from a family of heavy drinkers and has used drugs and ETOH at baseline, and more so in recent days prior to this hospitalization. Sister feels that pt was not setting a good example for his children with his use of drugs and ETOH. Spouse disclosed pt feelings of depression and sadness and this was very difficult for her to discuss this in front of pt's family. Pt sister expressed support for her to disclose, indicating that this needs to be talked about in order for pt to get the help that he needs. Patient's mother Cyndi, became upset and had to leave the room early and it appeared that she was not aware of some of the family issues brought forward by the and sister today. Family assured by team and mechanical service specialist that this information about family issues , depression, drinking is confidential and medical team only uses information to help monitor pt's health. For example, as a result of this information, the team may be watching for signs of withdrawal from alcohol or considering start of antidepressant when Santiago is able to take po or have a feeding tube to deliver medication. Problems: End of Life Preferences full code Goals of Care prefer ECF but finances not possible. significant concern re: ability to manage pt and her 3 children remains very unclear Resuscitation Status Resuscitation Status: CPR: Attempt Resuscitation ( is ADM) POLST Updates/Changes Previous POLST?: No Total time 60 minutes; >50% face to face with patient and/or family, providing counselling regarding plans and recommendations, and in care coordination with his/her medical teams. time spent in review of chart, discussion with Dr. Salvador and extended discussion with patient's via mechanical service specialist I also spent an additional [ ] minutes counseling for advanced care planning with the patient/the patients family/the surrogate decision maker. Palliative Brief Note Date of Service Sep 23, 2016 . Patient seen with his at the bedside at the request of Dr. Salvador.-with mechanical service specialist Krissy He has severe anoxic encephalopathy and hx of SOLOMON. The exact cause of his encephalopathy is bit unclear. By imaging his bilateral injury is noted to be progressing. Trial of steroids without benefit. His believes he is able to speak but acknowledges usually only single word and seems to speak primarily to family. He has not shown any movement since shortly after he came into the hospital. He is on TF through NG tube. states he is able to swallow water from toothettes and his own secretions. His branham and rectal were d/liliane today. He had been living with his and their 3 children-ages 7,11 and 13. He had an active SOLOMON problem leading up to admission O: he opens eyes and looks at his , he otherwise makes no effort to verbalize word and has no facial expressions etc. he is flaccid HRR, no edema, heel protectors on North, Camille Platt MD Sep 23, 2016 16:14
[2016-09-23 16:30] VITALS: BP 137/76; PULSE 107; O2SAT 99
--- NOTE | 2016-09-23 17:01 | NUR ---
spiritual care: LOS superintendent drivers aware of ongoing situation and stresses on family. available.
[2016-09-23 21:54] VITALS: BP 137/80; PULSE 107; RESP 19; O2SAT 98
[2016-09-24] MEDS: Heparin 5,000 Unit/mL Inj SUBQ SCH ×3 (00:39→16:50)
[2016-09-24] MEDS: SODIUM CHLORIDE 0.9% IV SCH (02:10)
[2016-09-24] MEDS: DESMOPRESSIN IV SCH (02:10)
[2016-09-24 04:14] VITALS: BP 131/81; PULSE 100; RESP 17; O2SAT 97
--- NOTE | 2016-09-24 06:16 | NUR ---
Shift note Pt. continues to be repositioned Q2, bed bath given, changed inct. brief x4 keeping him dry, family at bedside, hourly rounds, will continue to monitor.
[2016-09-24] MEDS: AMANTADINE 10 MG/ML TUBE SCH ×2 (08:14→21:17)
--- NOTE | 2016-09-24 14:23 | PCM.PALLBR ---
Palliative Care Recommendation Summary of palliative recommendations: -Symptom management (Pain/other): per attending -DPOA/Advanced Directives/POLST: 1. FULL Code 2. is designated decision maker. 3. No prior paperwork for AD or POLST. -Family/emotional support: strong support from large, local family. -Spiritual support: family is Methodist and the culture of Catholicism and regular mass attendance is part of their life. They don't want a narrow fabric loom fixer to visit at this time as they feel, if the patient knew he would panic and think he is dying. Patient/Family Goals: Pt unable to make any decision due to severity of his injury. Patient's Stella, his designated decision maker, and his family, want all possible interventions to help pt get back to his baseline health. 09/24/16- lengthy visit with multiple family members who ultimately decided they wish to proceed with PEG tube placement. They also asked that PT and speech therapy reevaluate the patient and if possible continue to attempt rehabilitative therapy. Above requests were passed on to Dr Salvador who will make arrangements. I also drafted a letter for the patient's mother Heather to present to BUILDs/immigration in support of her staying in the [place] longer, helping out with the patient's care now and after discharge 09/23/16-Family discussion with his . Patient is not able to make his needs known. Reviewed issues: 1. any possibility of patient being able to give some input re ongoing treatment.--for now the answer is NO 2. ? PEG to maintain nutrition even if able to take in small amt of food in the future.Stella feels needs to be discussed with other family members for acceptance. Dr. Lopez does not think infection 3. - Stella would like to have a swallow eval to see if he can assist in nutrition. He seems to be able to deal with his own secretions and he makes some effort to chew 4. Financial issues-his states she lost her job and they have 3 children. She would not be able to afford much for tube feeding let alone other supplies like adult diapers etc She is not able to hire caregivers and her mother in law states she is going back to [place]. His is adamant that the pt should stay here with her. 5. Reviewed with his to try and see his disabilities through his eyes to decide if he is OK with this course of care. 6 [employer] jenae is very important to both of them- she feels her reading of the bible to him calms him 7. continues to hold out jenae that he will make a complete recovery-- reviewed need to plan in case this is not the option meeting set up with ferryboat ticket taker for tomorrow at 1 pm to hopefully involve more extensive discussion and make plan to move ahead on PEG which I believe they will want 09/08: Family meeting today with Yaneth Prieto, Rebecca Nash and Stella, pt's sister Guillermina and his mother Cyndi in a room outside pt's room (per 's request). Both Hazel Mcmahan and Yaneth examined pt prior to meeting. 1. Dr. Mcmahan gave his opinion (based on exam and imaging) that Mr. Ann may gain enough awareness to participate in a limited way, to speak a few words and acknowledge some family members at times. However, the imaging suggests that he will not likely be able to move his arms and legs. And it is unclear, how much understanding or speech he may regain. He will need others to care for him, feed him, clean him, dress him. Dr. Wolfe agreed and reiterated the clinical opinion that he will need caregivers around the clock. 2. expressed her opinion that she knows her better as a human being than the medical team and believes that he understands a lot of what she tells him. She is sure he will get heal to a much greater degree than the doctors are predicting. 3. After Dr. Mcmahan left, Dr. Minerva Wilson arrived and gave further information about Mr. Ann. His gallbladder is improving, but his pancreas is now inflamed. She will change his antibiotics and get an imaging for the pancreas then a GI consult for recommendations. 4. Family asked about inpatient rehab or PT for pt in his home. BLANCA Emanuel, gently explained to family that Mr. Ann's form of insurance only covers emergency care in hospital (because he [place] not a [place] of [place] and no aftercare as an outpatient or jail pt. Family asked about paperwork for financing the emergency care here at [facility]. Ms. George will refer them to Case Management. 5. Family asked about moving pt to [place] for more aftercare. Again, they were referred to Case Management who will work with family to explore options. 6. Family asked about feeding pt by mouth, and said ST had seen pt today, and Mr. Ann could take small amount of ice chips in mouth. Pall Care Team agrees that is a good step but not sufficient to give him the calories he needs and that tube feeding by nose may need to continue for a while. We also asked family re: possible PEG if needed in future, and they favor PEG placement if needed. 7. Family seems to have difficulty understanding the impaired consciousness that Mr. Ann has now. He is awake for a few minutes and then spends long periods with decreased LOC, appearing to be asleep but not awakening with deep sternal rub. Dr. Wolfe described this and tried to explain that this brain injury may have long periods of unconsciousness with short periods of arousal but the person may not be truly aware of who they are, where they are, who is around them. This may go on with some improvements, but not back to his prior level of well-being before his brain injury. It is not clear that family grasps this information. Medical team will likely have to continue to support them with further counseling. (Time spent in this conference: 70 minutes, 12noon-1:10pm) 09/05: Dr. Wolfe and ferryboat ticket taker met with Stella, pt's sister Guillermina and his mother Cyndi in a room adjacent to pt's room (per 's request). wanted to know why surgeon had visited her , and whether he would get a gall bladder surgery. She also wanted to know results of a brain test she said was scheduled from 2-4pm 09/04. Dr. Wolfe explained that Mr. Ann has gallbladder inflammation, but it is not clear he needs surgery, that the surgeon was asked to assess him and determine best path. Surgery note not yet in EMR. Dr. Wolfe not aware of any brain testing scheduled for 09/04 and insists it occurred. asked RN to contact Dr. Wilson to see if she could clarify this for , as perhaps a test was ordered and done whose results are not on EMR yet. I reminded family that we want to meet with them and neurologist Dr. Mcmahan at noon on ThuSeptember 08. I asked them how many other family members might be at this meeting, but they don't know yet. Sister will tell RN later who will let our office know. 09/04: Drs. Wolfe and Gisel met with and ferryboat ticket taker in a.m. to re- introduce the PC team and examine her . After exam, we offered sympathetic listening and support. We asked to meet with her and pt's mother at 1pm today. She consented. We met again, outside pt's room in a separate consult room at her request. She is worried that her can understand our conversation and would be discouraged by any bad news. Present were: Drs. Wolfe, Gisel, Steve, ferryboat ticket taker, Genet George (), and Stella, pt's sister Guillermina and his mother Cyndi. Dr. Wilson gave a brief medical update, acknowledging to the family that pt has shown small signs of improvement, but she is very cautious about what this means for him. Dr. Wolfe gave news from Dr. Haynes that pt's kidneys are improving enough that he will likely not need any more dialysis. . 1. We gently explained to family that Santiago's brain injury is going to be a long, slow process of waiting and helping him before we know what he will be able to do for himself. 2. Dr. Wolfe told them that he may not be able to get out of a bed, that he may not be able to eat, bathe, dress on his own, that he may not be able to be aware of when he needs to use the bathroom. Someone will have to take care of him for all these things, and it will probably be a year before the neurology doctors can give a better idea of how much self-care he can recover. 3. His asked about his speaking abilities. He does speak at times, and it seems to be clear speech and meaningful when it occurs. Dr. Wilson says she will ask Dr. Mcmahan about this, as we don't know how much speaking ability or thinking ability he will recover. 4. We invited family to a meeting Thursday with all of us and Dr. Mcmahan, which gives us more time to observe Santiago tomorrow and over the weekend- -as well as giving the family members who work time to try to arrange to get off for this meeting. 5. We offered supportive listening and answered questions. Please see Ms. George's SW note from re: additional information on family responses today. 08/26 Family Conference Team Meeting (FCTM): On Hospital Day 4 Palliative Care had an initial meeting with family to gather background information about the pt and give a medical update compiled by the Attending hospitalist team through a Romanian Speaking Property Officer. We met with family at length. This included pt mother Cyndi, sister Guillermina, nephew Paresh, cousin Sina and his spouse Jacquelyn and patient's spouse Elise Douglas (ferryboat ticket taker services), Genet George (), Hazel Wolfe, and Jyotsna--all from [facility] Team-- and Dr. Rodriguez ([facility] hospitalist swat team member). Stella notes that she and pt have three children; Santiago Sánchez (13), Zofia (8) and Radha (6). Discussed at length pt current condition and answered questions about medical issues. Dr. Hastings explained that neurological workup is ongoing and outcome is not clear. Dr. Wolfe went over treatments being used to care for pt's lungs and kidneys. 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 He is proud of his capabilities and has learned his skills on the job. Family is Methodist and is part of the yazidism at [facility] in [place]. Pt enjoys his children and is noted to be a good father. He is described as someone that others esteem and look up to, someone others love, he thinks about the future of his children and plans for them and is a hard worker. Pt has long struggled with depression. He has felt sad that he was raised by his grandmother and for reasons that are unclear, not by his parents. He longed to have a family of his own so that he could be a positive influence and offer parental love and support for his children that he feels he didn't receive. He has disclosed to his spouse and sister that he had depression and at times wished that he had not been born. Family does not think that current episode was a suicide attempt. Pt comes from a family of heavy drinkers and has used drugs and ETOH at baseline, and more so in recent days prior to this hospitalization. Sister feels that pt was not setting a good example for his children with his use of drugs and ETOH. Spouse disclosed pt feelings of depression and sadness and this was very difficult for her to discuss this in front of pt's family. Pt sister expressed support for her to disclose, indicating that this needs to be talked about in order for pt to get the help that he needs. Patient's mother Cyndi, became upset and had to leave the room early and it appeared that she was not aware of some of the family issues brought forward by the and sister today. Family assured by team and ferryboat ticket taker that this information about family issues , depression, drinking is confidential and medical team only uses information to help monitor pt's health. For example, as a result of this information, the team may be watching for signs of withdrawal from alcohol or considering start of antidepressant when Santiago is able to take po or have a feeding tube to deliver medication. Problems: End of Life Preferences full code Goals of Care prefer ECF but finances not possible. significant concern re: ability to manage pt and her 3 children remains very unclear Resuscitation Status Resuscitation Status: CPR: Attempt Resuscitation ( is ADM) POLST Updates/Changes Previous POLST?: No . Pain: None Total time 105 minutes; >50% face to face with patient and family, providing counselling regarding plans and recommendations, and in care coordination with his medical teams. Of the above total time, 105 minutes counseling for advanced care planning with the multiple patient family members, discussing their wishes for nutritional support, his rehabilitation potential, their wishes to try to return him to [place], etc. Palliative Brief Note Date of Service Sep 24, 2016 . Returned for family conference. Family is considering PEG tube placement for nutritional support but had a number of questions. They also were concerned that he has not been receiving regular physical therapy and speech therapy visits. I reviewed his case with Dr. Salvador by phone, spoke with his nurse and reviewed his chart notes in detail. Also received signout from Dr. Cabrera. With the ferryboat ticket taker present, and accompanied by Ms. Lam (palliative MOBILE UI DEVELOPER) I met with patient's , mother and sisters. We spoke at length, reviewing his clinical status in some detail. They had particular questions about physical therapy/speech therapy needs, his swallowing, and the pros and cons of PEG tube placement. They wondered about allowed level of activity and wanted clarification of what family members were allowed to do in terms of sitting him up at bedside, moving him around, etc. We spoke for more than an hour, answering the questions in detail. The greatest focus of conversation was on the indications/potential risks/relative benefits of PEG tube versus NG tube in light of his need for ongoing nutritional support. Initially his was concerned because the information handout for PEG tubes indicated "increased risk of pneumonia" and she had be reassured that this was compared with baseline normal oral intake- not his situation with severe swallowing dysfunction and NG feeding tube. Talked about the need for aggressive nutrition support, stressing that even if he is able to take small sips or bits of food this would provide inadequate nutrition for him to optimize his chances for healing. Ultimately, family decided to proceed with PEG tube placement, but also requested reevaluation by speech therapy and physical therapy afterwards. Patient's also had a number of questions about care at home following eventual hospital discharge, possible transportation to [place], and his mother had questions about how we might assist getting her visa extended so she could stay longer. Family inquired as to how soon he might be discharged and I told him that it would ultimately be up to the medical team, but that I expected no sooner than the first of next week. Louie Bowman MD Sep 24, 2016 14:23
--- NOTE | 2016-09-24 15:43 | NUR ---
Palliative care note FCTM D/A: Family meeting today with pt spouse, sister, mother, cousin and [id number]. Present also were Dr. Bowman, interpreter for the deaf services and this worker. Long discussion with family about PEG and how it compares to NG tube. Also spent time discussing PT/ST services and continuation of such when a pt has a plateau. Assisted family in understanding that pt will need continued assist with nutrition at this time and PEG tube is safest option. Family decision is reached to go ahead with PEG placement and to have PT/ST reassess post PEG placement. Above discussed with Johanna AGUILAR, dcp P: Palliative care to follow as needed. Genet NANCE, CCM
[2016-09-24 16:00] VITALS: BP 129/86; PULSE 111; RESP 15; O2SAT 97
--- NOTE | 2016-09-24 16:05 | PCM.PNMED ---
Subjective Date of Service Sep 24, 2016 Subjective patient more alert today . follows commands intermittently. states he is more interactive and talks with family than staff. he said 'genet' to me today Exam Vital Signs Vital Sign - Last Date Time Temp Pulse Resp B/P Pulse Ox O2 Delivery O2 Flow Rate FiO2 09/24/16 08:04 Supplement Oxygen 09/24/16 04:14 37.8 100 17 131/81 97 Intake and Output 09/23/16 09/23/16 09/24/16 Cumulative From/Thru 15:00 23:00 07:00 08/23/16 05:20 - 09/24/16 05:42 Intake Total 1798 ml 860 ml 042050 ml Output Total 75 ml 4 ml 083815 ml Balance 1723 ml 856 ml 95203 ml Intake Oral 560 ml IV Total 68 ml 60 ml 27137 ml Tube Feeding 630 ml 400 ml 01387 ml TPN/PPN 726 ml Tube Irrigant 1100 ml 400 ml 30224 ml Output Urine Total 75 ml 4 ml 13422 ml Stool Total 36890 ml Gastric Drainage Total 1070 ml Ultrafiltrate 4700 ml Other 330 ml # Voids 2 2 # Bowel Movements 1 4 16 Exam General: No Acute Distress Head: Normal Eyes: Scleral Anicteric Nose: Mucous Membr Moist/Heeney Mouth: Mucous Membr Moist/[place]y Neck: Supple Chest & Lungs: Chest Wall Normal, Clear to auscultation bilat Cardiovascular: Regular Rate/Rhythm Pulses: NL DP, PT Extremities: No cyanosis/clubbing/edema bilat Neurological: alert ,eyes open, non verbal mostly. following instruction intermittently . Very limited movement of all extremities noted IVs and Medications Medications Reviewed: Medications were reviewed in detail Lab and Diagnostics Result Diagram: 09/23/16 1241 09/23/16 1241 Microbiology Blood cultures pending MRSA swab pending X-Rays, CTs and MRIs CT BRAIN WITHOUT CONTRAST IMPRESSION: No acute disease. Dictated by: Hemant Gallegos M.D. on 08/23/2016 CT BRAIN WITHOUT CONTRAST IMPRESSION: 1. Diffuse bilateral hypodensity of the globus pallidus. This is a new finding when compared with the study dated 08/23/16. Differential considerations include anoxic injury, carbon monoxide neurotoxicity, excessive alcohol ingestion, and methanol or ethylene glycol ingestion. Dictated by: Dinora Kang M.D. 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 Dictated by: Jacob Mosqueda M.D. on 08/28/2016 MRI STROKE PROTOCOL IMPRESSION: BRAIN MRI: Continued worsening of ischemic injury to the brain parenchyma, symmetric bilaterally, and best seen in the deep white matter of the lentiform nuclei, the wolfe radiata, and the centrum semiovale. No associated hemorrhage. BRAIN MR ANGIOGRAM: No acute disease to the intracranial arterial vasculature. NECK MR ANGIOGRAM: Normal cervical MR angiogram. The estimate of stenosis included in the report of the imaging study was calculated using the NASCET method Dictated by: Jack Padilla M.D. on 09/15/2016 CT CHEST WITHOUT CONTRAST IMPRESSION: Small basal left pleural effusion is unchanged, with associated left lower lobe compressive atelectasis. Superimposed pneumonia therefore cannot be excluded. Dictated by: Binh Ochoa M.D. on 09/07/2016 at 13:47 US RENAL SONOGRAM IMPRESSION: No hydronephrosis. Right renal cyst. Dictated by: Shobha Vale M.D. on 08/24/2016 US ABDOMEN, LIMITED IMPRESSION: Cholelithiasis, without justin gallbladder wall thickening to suggest acute cholecystitis at this time. Dictated by: Binh Ochoa M.D. on 09/07/2016 MR ABDOMEN MRCP IMPRESSION: 1. Markedly limited study due to motion artifact. 2. Cholelithiasis without evidence of cholecystitis. 3. No biliary ductal dilatation or definite choledocholithiasis. 4. No peripancreatic edema to suggest pancreatitis an MRI. No discrete pseudocyst identified. Dictated by: Bruce Valadez M.D. on 09/08/2016 at 17:47 US ABDOMEN IMPRESSION: 1. Cholelithiasis. 2. Mild gallbladder wall thickening. Acute cholecystitis cannot be excluded. 3. Echogenic liver. Finding typically represents fatty infiltration; however, finding is nonspecific and correlation with clinical and laboratory findings is recommended to exclude other etiologies including hepatic cirrhosis. 4. Slightly echogenic right kidney suspicious for developing medical renal disease. Please correlate with clinical and laboratory data. Dictated by: Swathi Jimenes MD, PhD on 08/29/2016 US ABDOMEN, LIMITED IMPRESSION: Cholelithiasis, without justin gallbladder wall thickening to suggest acute cholecystitis at this time. Dictated by: Binh Ochoa M.D. on 09/07/2016 X-RAY CHEST ONE VIEW, PORTABLE IMPRESSION: No acute disease is seen a semiupright portable chest. Tubes are considered appropriate radiographically. Dictated by: Hemant Gallegos M.D. on 08/23/2016 X-RAY CHEST ONE VIEW, PORTABLE IMPRESSION: Support lines as above. Otherwise, no acute pulmonary process. Dictated by: Shobha Vale M.D. on 08/24/2016 X-RAY CHEST ONE VIEW, PORTABLE IMPRESSION: No acute cardiopulmonary disease process. Dictated by: Swathi Jimenes MD, PhD on 08/25/2016 X-RAY CHEST ONE VIEW, PORTABLE IMPRESSION: 1. Left basilar atelectasis. Otherwise lungs are clear. 2. ET and enteric tubes. Dictated by: Jacob Mosqueda M.D. on 08/27/2016 at 9:53 X-RAY CHEST ONE VIEW, PORTABLE IMPRESSION: Stable left basilar atelectasis and support lines. Dictated by: Jacob Mosqueda M.D. on 08/28/2016 at 7:54 Date of Service: 09/15/16 1757 PROCEDURE: MRI STROKE PROTOCOL ([id number]) IMPRESSION: BRAIN MRI: Continued worsening of ischemic injury to the brain parenchyma, symmetric bilaterally, and best seen in the deep white matter of the lentiform nuclei, the wolfe radiata, and the centrum semiovale. No associated hemorrhage. BRAIN MR ANGIOGRAM: No acute disease to the intracranial arterial vasculature. NECK MR ANGIOGRAM: Normal cervical MR angiogram. The estimate of stenosis included in the report of the imaging study was calculated using the NASCET method Dictated by: Jack Padilla M.D. on 09/15/2016 at 21:36 Approved by: Jack Padilla M.D. on 09/15/2016 at 21:42 Additional Diagnostics ABG DateTimeAnalyzed 10:20:00 -_ pH ____7.354 - 7.350 7.450 pCO2 ___31.5__ -mmHg 35.0 45.0 pO2 160 -mmHg 69.0 116 HCO3- ___17.1__ -mmol/L 22.0 26.0 FIO2 ___45.0__ -% PRVC 20 - PEEP ____8.0__ -cmH2O Assessment & Plan 41 year old male with known history of alcohol and drug use presented unresponsive after being found with vomit around him, sedated and intubated for acute hypoxemic respiratory failure secondary to aspiration for 5 days and extubated on hospital day 6 following successful spontaneous breathing trial. # Acute anoxic Brain Injury, present on admission. Ongoing - Strongly suspected anoxic brain injury given presenting history - Secondary to aspiration and intoxication. Patient had large volume of vomit suctioned out in the ED. initial toxicology screen done only for salycilate, alcohol and acetaminophen which is unremarkable - Initial EEG showed evidence of slowing but no other abnormalities to suggest that the patient is having clinical seizures causing his symptoms. - Intubated on 08/23/16, Extubated on 08/28/16. - Zosyn was given for 7 days earlier in the hospital course but was stopped per ID recommendation. - Patient with reported neurologic deterioration few days after extubation and transfer out of ICU - Repeat MRI of brain on 09/15/16 showing: "Continued worsening of ischemic injury to the brain parenchyma, symmetric bilaterally" - latest MRI findings were discussed with neurologist, if these findings due to underlying vasculitis, infection or other etiology - Anoxic brain injury and its progression is most likely diagnosis at this time. However, given no obvious source of infection and remote likelihood of vasculitis, per discussion with Dr. Jara started a trial of steroid therapy (Prednisone 80mg daily x 3 days) on 09/17/16 to see if we will achieve any significant improvement in neuro symptoms. No obvious improvement noted with 3 days of Prednisone treatment. - Per neuro recommendation increased Amantadine to 100mg bid on 09/20/16 - Increase amantadine gradually up to a goal dose of 400 mg daily. 100 mg twice a day for one week, then 100 mg in the morning and 200 mg in the evening for one week ( started on 09/24) , and then 200 mg twice daily thereafter. - Post LP and CTA brain on 09/16/16. - Appreciate neurology consult. Will followup with recs - findings and plan were discussed with neuro consult (Dr. Jara) by prior hospitalist on 09/17/16 . Neuro reviewed these findings with [facility] neurology. # Acute fevers, not present on admission. ongoing - Appreciate ID consult. Will followup with recs - Per ID consult, fevers thought to be likely due to central etiology. - Initially though due to Pancreatitis or Cholecystitis. UA is negative - Completed course of Ertapenem. - MRCP did not show further evidence of Pancreatitis or Cholecystitis. - Blood cultures negative. - Vasculitis workup and LP as noted above # Acute dysphagia. Likely due to anoxic brain injury noted above. Present on admission. - Per earlier notes: "After Family meeting on 09/13, has requested MBS attempted again and would like to be present." - Pt failed MBS on 09/15 due to inability to fully follow instructions. - Continue with Ngtube feed - Discussed PEG placement on 09/22/16 with patient's . At this time she wants everything done to keep patient alive including a PEG tube. However, she also wants the rest of the family to be present for decision making and to have doctors explain things to the rest of the family as well. -palliative care discussed goals of care with family members ,they opted PEG tube. Consulted gastroenterology for PEG tube placement # Mild acute hypernatremia, not present on admission, active. - Appreciate nephrology consult. Will followup with recs -Currently on DDAVP mcg IV bid .switched to nasal DDVAP 20mch hs per nephrology. Plan to continue upon discharge. Plan to follow with nephrology in 3 weeks # Acute Kidney Injury, present on admission. Resolved - Cr on admission at 3.52 and increasing after admission. Unknown history of kidney injury. - Appreciate nephrology consult. Will followup with recs - Hemodialysis done daily starting 08/25/16 and then stopped. No longer on hemodialysis and catheter removed - Free water flushes 300 ml q 4 hr. - Continue DDAVP for now # Acute Cholecystitis, present on admission. Resolved - Acute cholecystitis based on HIDA scan and abdominal CT. - Gen. surgery was consulted, Dr. Dash as intial thought of CCK. Upon follow up MRCP was negative for Acute Pancreatitis and Chronic cholecystitis. - Resolved cholelithiasis w/o choledocholithiasis. - No surgery indicated at this time given improvement. - TPN stopped on 09/06/16 as this was thought to be worsening cholecystitis and pancreatitis. # Acute Metabolic Acidosis, present on admission. Improved - Likely secondary to lactic acidosis and uremia - Monitor CMP: # Acute Rhabdomyolysis, present on admission, [place] [id number]. Likely secondary to being in one position for 9 hours. - Wound care consult # Acute Hyperkalemia, present on admission, resolved - Kayexalate via feeding tube was given per nephro on 09/07 - Continue to monitor # Acute stage II ulcers in the buttock areas, present on admission. - Continue with wound care and supportive care # History of alcohol dependence - No need to institute CIWA protocol at this time # History of drug dependence - Known user of cocaine and ice - Per family, last known use is around 5 months ago. Dispo: pending PEG tube, and likely placement. Patient likely to go home eventually GI Prophylaxis: Not indicated (Patient extubated) VTE Prophylaxis: Sub-Q Heparin (Unfractionated), SCDs VTE Mechanical Devices: Intermittant Pneumatic CD Resuscitation Status: CPR: Attempt Resuscitation ( is ADM) Catalino Salvador MD Sep 24, 2016 16:05
--- NOTE | 2016-09-24 16:26 | NUR ---
Social Work: Brief Note SECURITY SCREENER notified by Palliative geriatric social worker that family decided to have PEG tube placed. Will continue to follow for d/c planning needs. JEFF Ayon
--- NOTE | 2016-09-24 17:45 | CONS ---
[address] [address] CONSULTATION REPORT PATIENT: SANDY SOSA : 1975 MR#: [id number] ADMIT: 08/23/2016 JOB ID: [id number] DATE OF SERVICE: REASON FOR CONSULTATION: It was pleasure seeing the patient at [facility] for evaluation of PEG. This was done through secretarial teacher services. HISTORY OF PRESENT ILLNESS: It was a pleasure seeing the patient at [facility] GI service for evaluation of anoxic brain injury and for PEG. This is a 41-year-old gentleman with minimal past medical history, but has some issues with polysubstance abuse. He used meth, cocaine, and alcohol. The patient was found unconscious on August 23 and he was not breathing. He came to the hospital into the emergency department, intubated in the field, and was transferred to the ICU. He had evidence of aspiration pneumonia. He was on CPAP and Zosyn. The patient was hemodynamically stable in the ICU, and he eventually got off the ventilation, and his mental status did not improve significantly. He also had a swallowing evaluation where he could not tolerate oral food, therefore they gave him a Dobbhoff feeding tube. He has been pretty much dependent on the Dobhoff feeding tube. He is being having issues with pneumonia and he has a persistently elevated white count of 13,500. Last note by Dr. Lopez indicates that there was no need for continued antibiotics and signed off. REVIEW OF SYSTEMS: I could not get any review of systems from him. PAST MEDICAL HISTORY: As stated above, minimal. PAST SURGICAL HISTORY: None. SOCIAL HISTORY: He was unable to respond to me but other than use of polysubstance no other social history noted. FAMILY HISTORY: Unknown. INpatient Meds reviewed. PHYSICAL EXAMINATION: Patient opens his eyes. Vitals: Temp 37.8, pulse 100, respirations 17, blood pressure 131/81. Head and neck: No icterus. Lungs: Basilar crackles. Cardiovascular: Regular rate and rhythm. Normal S1 and S2. Abdomen: Soft, nontender, nondistended. Active bowel sounds. No scarring noted in the abdomen to indicate any prior surgeries or any evidence of prior PEG deployment. Skin shows no jaundice. LABORATORY DATA: Hemoglobin 10.6, white count 13,500, platelets of 149,000. INR 0.95. BUN 26, creatinine 0.40. IMPRESSION: I spoke with the , who agreed for the percutaneous endoscopic gastrostomy tube deployment. Side effects for unintended consequence are explained including infection, leakage causing peritonitis, bleeding, perforation requiring surgery, inadvertently pulling the percutaneous endoscopic gastrostomy out, heart/pulmonary decompensation, aspiration, need for surgery are the main highlights. Consent was obtained through the secretarial teacher and the agreed. Obtain INR and will proceed with a percutaneous endoscopic gastrostomy deployment tomorrow. Also instructed the nurse to keep the patient n.p.o. after midnight, stop the subcu heparin after midnight, and the patient will need antibiotics (Ancef) 30 minutes before the procedure. AUBREY
[2016-09-24] MEDS: Acetaminophen 32.5 mg/mL 20 mL Liquid PO PRN (18:43)
[2016-09-24 18:56] LABS: INR 1.03 ratio
[2016-09-24 21:00] VITALS: BP 125/68; PULSE 105; RESP 16; O2SAT 97
[2016-09-24] MEDS: Desmopressin 100 mCg/mL 5 mL Nasal Spray NASAL SCH (21:16)
--- NOTE | 2016-09-25 04:15 | NUR ---
CARE Q2h turns continuing with frequent brief changes due to incontinence. Pt had x1 BM, pure liquid orange color. Calmoseptine applied, mepilex replaced on r. buttock. Frequent oral care, though pt able to handle secretions. Pt awakens with care, makes eye contact and grimaces, pt has not made any attempts to speak. at bedside to help with care and advocate for pt.
[2016-09-25 04:30] VITALS: BP 134/87; PULSE 111; RESP 19; O2SAT 98
[2016-09-25] MEDS: AMANTADINE 10 MG/ML TUBE SCH ×2 (05:41→20:13)
[2016-09-25 09:34] VITALS: BP 119/75; PULSE 105; RESP 16; O2SAT 97
--- NOTE | 2016-09-25 10:01 | DRSVH ---
PROCEDURE: X-RAY CHEST ONE VIEW, PORTABLE ([id number]) INDICATIONS: fever TECHNIQUE: One view of the chest was acquired. COMPARISON: [facility], CR, XR CHEST 1VW (PORTABLE), 09/17/2016, 10:19. [facility], CR, XR CHEST 1VW (PORTABLE), 09/12/2016, 16:16. [facility], CR, XR CHEST 1VW (POR TABLE), 09/02/2016, 15:33. FINDINGS: Surgical changes and devices: A feeding tube is present, as before, extending below the level of the film. Right arm PICC is present, tip of which is at the cavoatrial junction. Lungs and pleura: No pleural effusions or pneumothorax. Mild patchy left basilar airspace opacity is unchanged. Mediastinum: Mediastinal contours appear normal. Heart size is normal. Bones and chest wall: No suspicious bony lesions. Overlying soft tissues appear unremarkable. IMPRESSION: Left basilar pneumonia. Continued plain film surveillance is recommended to ensure resolu tion, and to exclude underlying or central malignancy. Dictated by: Alex Govea M.D. on 09/25/2016 at 9:59 Approved by: Alex Govea M.D. on 09/25/2016 at 10:00
--- NOTE | 2016-09-25 12:25 | NUR ---
Social Work: Continued d/c planning Data: Pt is on day 33 of hospitalization. EMR reviewed, pt discussed in multidisciplinary rounds. states that family decided to move forward with the PEG tube placement yesterday, but the pt now has a fever and it cannot be placed today. ID is going to consult per hospitalist. TRANSFER CAR OPERATOR DRIER will continue to follow. Assessment: Pt who is independent at baseline, currently not capable of any self care. Complete assist required. Plan: ID to consult, possible PEG tube placement. Palliative following. TRANSFER CAR OPERATOR DRIER will continue to follow for d/c planning needs. JEFF Ayon
--- NOTE | 2016-09-25 13:59 | PCM.PALLBR ---
Palliative Brief Note Date of Service Sep 25, 2016 . Patient to have PEG tube placed today. Continuing care per medical/hospitalist team. Palliative medicine will sign off at this time- please contact us if we may be of further assistance. Louie Bowman MD Sep 25, 2016 13:59
[2016-09-25 14:38] LABS: Mean Corpuscular Hemoglobin 29.7 pg (27.0-35.0); Platelet Count 193 bil/L (150-400)
[2016-09-25 14:51] LABS: BASOPHILS % (AUTO) 0 % (0-3); EOSINOPHILS % (AUTO) 2 % (0-5); MONOCYTES % (AUTO) 5 % (4-12); NEUTROPHILS % (AUTO) 65 % (40-74)
[2016-09-25 14:54] LABS: Magnesium 2.1 mg/dL (1.6-2.6)
[2016-09-25 15:00] VITALS: BP 127/88; PULSE 105; RESP 20; O2SAT 98
--- NOTE | 2016-09-25 15:24 | PCM.PNMED ---
Subjective Date of Service Sep 25, 2016 Subjective PEG tube placement planned for today but canceled due to worsening fever, new tachycardia, worsening leukocytosis. Exam Vital Signs Vital Sign - Last Date Time Temp Pulse Resp B/P Pulse Ox O2 Delivery O2 Flow Rate FiO2 09/25/16 14:00 Supplement Oxygen 09/25/16 09:34 36.8 105 16 119/75 97 Intake and Output 09/24/16 09/24/16 09/25/16 Cumulative From/Thru 15:00 23:00 07:00 08/23/16 05:20 - 09/25/16 02:52 Intake Total 1303 ml 590101 ml Output Total 176927 ml Balance 1303 ml 34833 ml Intake Oral 560 ml IV Total 90 ml 51549 ml Tube Feeding 400 ml 21657 ml TPN/PPN 726 ml Tube Irrigant 813 ml 15309 ml Output Urine Total 37739 ml Stool Total 23796 ml Gastric Drainage Total 1070 ml Ultrafiltrate 4700 ml Other 330 ml # Voids 6 8 # Bowel Movements 2 18 Exam General: No Acute Distress Head: Normal Eyes: Scleral Anicteric Nose: Mucous Membr Moist/Uncertain Mouth: Mucous Membr Moist/Uncertain Neck: Supple Chest & Lungs: Chest Wall Normal, Clear to auscultation bilat Cardiovascular: Regular Rate/Rhythm Pulses: NL DP, PT Extremities: No cyanosis/clubbing/edema bilat Neurological: alert ,eyes open, non verbal mostly but able to say 'genet' to . following instruction intermittently . Very limited movement of all extremities noted.power 2/5 all over IVs and Medications Medications Reviewed: Medications were reviewed in detail Lab and Diagnostics Result Diagram: 09/25/16 1400 09/25/16 1400 Microbiology Blood cultures pending MRSA swab pending X-Rays, CTs and MRIs CT BRAIN WITHOUT CONTRAST IMPRESSION: No acute disease. Dictated by: Hemant Gallegos M.D. on 08/23/2016 CT BRAIN WITHOUT CONTRAST IMPRESSION: 1. Diffuse bilateral hypodensity of the globus pallidus. This is a new finding when compared with the study dated 08/23/16. Differential considerations include anoxic injury, carbon monoxide neurotoxicity, excessive alcohol ingestion, and methanol or ethylene glycol ingestion. Dictated by: Dinora Kang M.D. 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 Dictated by: Jacob Mosqueda M.D. on 08/28/2016 MRI STROKE PROTOCOL IMPRESSION: BRAIN MRI: Continued worsening of ischemic injury to the brain parenchyma, symmetric bilaterally, and best seen in the deep white matter of the lentiform nuclei, the wolfe radiata, and the centrum semiovale. No associated hemorrhage. BRAIN MR ANGIOGRAM: No acute disease to the intracranial arterial vasculature. NECK MR ANGIOGRAM: Normal cervical MR angiogram. The estimate of stenosis included in the report of the imaging study was calculated using the NASCET method Dictated by: Jack Padilla M.D. on 09/15/2016 CT CHEST WITHOUT CONTRAST IMPRESSION: Small basal left pleural effusion is unchanged, with associated left lower lobe compressive atelectasis. Superimposed pneumonia therefore cannot be excluded. Dictated by: Binh Ochoa M.D. on 09/07/2016 at 13:47 US RENAL SONOGRAM IMPRESSION: No hydronephrosis. Right renal cyst. Dictated by: Shobha Vale M.D. on 08/24/2016 US ABDOMEN, LIMITED IMPRESSION: Cholelithiasis, without justin gallbladder wall thickening to suggest acute cholecystitis at this time. Dictated by: Binh Ochoa M.D. on 09/07/2016 MR ABDOMEN MRCP IMPRESSION: 1. Markedly limited study due to motion artifact. 2. Cholelithiasis without evidence of cholecystitis. 3. No biliary ductal dilatation or definite choledocholithiasis. 4. No peripancreatic edema to suggest pancreatitis an MRI. No discrete pseudocyst identified. Dictated by: Bruce Valadez M.D. on 09/08/2016 at 17:47 US ABDOMEN IMPRESSION: 1. Cholelithiasis. 2. Mild gallbladder wall thickening. Acute cholecystitis cannot be excluded. 3. Echogenic liver. Finding typically represents fatty infiltration; however, finding is nonspecific and correlation with clinical and laboratory findings is recommended to exclude other etiologies including hepatic cirrhosis. 4. Slightly echogenic right kidney suspicious for developing medical renal disease. Please correlate with clinical and laboratory data. Dictated by: Swathi Jimenes MD, PhD on 08/29/2016 US ABDOMEN, LIMITED IMPRESSION: Cholelithiasis, without justin gallbladder wall thickening to suggest acute cholecystitis at this time. Dictated by: Binh Ochoa M.D. on 09/07/2016 X-RAY CHEST ONE VIEW, PORTABLE IMPRESSION: No acute disease is seen a semiupright portable chest. Tubes are considered appropriate radiographically. Dictated by: Hemant Gallegos M.D. on 08/23/2016 X-RAY CHEST ONE VIEW, PORTABLE IMPRESSION: Support lines as above. Otherwise, no acute pulmonary process. Dictated by: Shobha Vale M.D. on 08/24/2016 X-RAY CHEST ONE VIEW, PORTABLE IMPRESSION: No acute cardiopulmonary disease process. Dictated by: Swathi Jimenes MD, PhD on 08/25/2016 X-RAY CHEST ONE VIEW, PORTABLE IMPRESSION: 1. Left basilar atelectasis. Otherwise lungs are clear. 2. ET and enteric tubes. Dictated by: Jacob Mosqueda M.D. on 08/27/2016 at 9:53 X-RAY CHEST ONE VIEW, PORTABLE IMPRESSION: Stable left basilar atelectasis and support lines. Dictated by: Jacob Mosqueda M.D. on 08/28/2016 at 7:54 Date of Service: 09/15/16 1757 PROCEDURE: MRI STROKE PROTOCOL ([id number]) IMPRESSION: BRAIN MRI: Continued worsening of ischemic injury to the brain parenchyma, symmetric bilaterally, and best seen in the deep white matter of the lentiform nuclei, the wolfe radiata, and the centrum semiovale. No associated hemorrhage. BRAIN MR ANGIOGRAM: No acute disease to the intracranial arterial vasculature. NECK MR ANGIOGRAM: Normal cervical MR angiogram. The estimate of stenosis included in the report of the imaging study was calculated using the NASCET method Dictated by: Jack Padilla M.D. on 09/15/2016 at 21:36 Approved by: Jack Padilla M.D. on 09/15/2016 at 21:42 Additional Diagnostics ABG DateTimeAnalyzed 10:20:00 -_ pH ____7.354 - 7.350 7.450 pCO2 ___31.5__ -mmHg 35.0 45.0 pO2 160 -mmHg 69.0 116 HCO3- ___17.1__ -mmol/L 22.0 26.0 FIO2 ___45.0__ -% PRVC 20 - PEEP ____8.0__ -cmH2O Assessment & Plan 41 year old male with known history of alcohol and drug use presented unresponsive after being found with vomit around him, sedated and intubated for acute hypoxemic respiratory failure secondary to aspiration for 5 days and extubated on hospital day 6 following successful spontaneous breathing trial. # suspected new episode of sepsis ,onset 09/25 -Temp 39.2, which is significantly higher than his temp trend,new tachycardia HR in 111, worsening leukocytosis from 13 to 23 -Unclear source but likely due to aspiration pneumonia -Blood culture sent,cxr persistent LLL infiltrate, urinalysis requested.no reported decub ulcer ,will check when repositioned later -will start empiric antibiotics zosyn for aspiration pneumonia -will consider MRCP or CT abdomen given recent cholecystitis if initial workup is unrevealing # Acute anoxic Brain Injury, present on admission. Ongoing - Strongly suspected anoxic brain injury given presenting history - Secondary to aspiration and intoxication. Patient had large volume of vomit suctioned out in the ED. initial toxicology screen done only for salycilate, alcohol and acetaminophen which is unremarkable - Initial EEG showed evidence of slowing but no other abnormalities to suggest that the patient is having clinical seizures causing his symptoms. - Intubated on 08/23/16, Extubated on 08/28/16. - Zosyn was given for 7 days earlier in the hospital course but was stopped per ID recommendation. - Patient with reported neurologic deterioration few days after extubation and transfer out of ICU - Repeat MRI of brain on 09/15/16 showing: "Continued worsening of ischemic injury to the brain parenchyma, symmetric bilaterally" - Anoxic brain injury and its progression is most likely diagnosis at this time. However, given no obvious source of infection and remote likelihood of vasculitis, per discussion with Dr. Jara a trial of steroid therapy ( Prednisone 80mg daily x 3 days) given on 09/17/16 to see if we will achieve any significant improvement in neuro symptoms. No obvious improvement noted with 3 days of Prednisone treatment. - Per neuro recommendation increased Amantadine to 100mg bid on 09/20/16 - Increase amantadine gradually up to a goal dose of 400 mg daily. 100 mg twice a day for one week, then 100 mg in the morning and 200 mg in the evening for one week ( started on 09/24) , and then 200 mg twice daily thereafter. - Post LP and CTA brain on 09/16/16. - Appreciate neurology consult. Will followup with recs - findings and plan were discussed with neuro consult (Dr. Jara) by prior hospitalist on 09/17/16 . Neuro reviewed these findings with [facility] [place] [facility]. # Acute fevers, not present on admission. ongoing - Appreciate ID consult. Will followup with recs - Per ID consult, fevers thought to be likely due to central etiology. - Initially though due to Pancreatitis or Cholecystitis. UA is negative - Completed course of Ertapenem. - MRCP did not show further evidence of Pancreatitis or Cholecystitis. - Blood cultures negative. - Vasculitis workup and LP as noted above # Acute dysphagia. Likely due to anoxic brain injury noted above. Present on admission. - Per earlier notes: "After Family meeting on 09/13, has requested MBS attempted again and would like to be present." - Pt failed MBS on 09/15 due to inability to fully follow instructions. - Continue with Ngtube feed - Discussed PEG placement on 09/22/16 with patient's . At this time she wants everything done to keep patient alive including a PEG tube. However, she also wants the rest of the family to be present for decision making and to have doctors explain things to the rest of the family as well. -palliative care discussed goals of care with family members ,they opted PEG tube. Consulted gastroenterology for PEG tube placement. Initially scheduled for 09/25 but canceled due to new sepsis # Mild acute hypernatremia, not present on admission, active. - Appreciate nephrology consult. Will followup with recs -Currently on DDAVP mcg IV bid .switched to nasal DDVAP 20mch hs per nephrology. Plan to continue upon discharge. Plan to follow with nephrology in 3 weeks # Acute Kidney Injury, present on admission. Resolved - Cr on admission at 3.52 and increasing after admission. Unknown history of kidney injury. - Appreciate nephrology consult. Will followup with recs - Hemodialysis done daily starting 08/25/16 and then stopped. No longer on hemodialysis and catheter removed - Free water flushes 300 ml q 4 hr. - Continue DDAVP for now # Acute Cholecystitis, present on admission. Resolved - Acute cholecystitis based on HIDA scan and abdominal CT. - Gen. surgery was consulted, Dr. Dash as intial thought of CCK. Upon follow up MRCP was negative for Acute Pancreatitis and Chronic cholecystitis. - Resolved cholelithiasis w/o choledocholithiasis. - No surgery indicated at this time given improvement. - TPN stopped on 09/06/16 as this was thought to be worsening cholecystitis and pancreatitis. # Acute Metabolic Acidosis, present on admission. Improved - Likely secondary to lactic acidosis and uremia - Monitor CMP: # Acute Rhabdomyolysis, present on admission, [place] [id number]. Likely secondary to being in one position for 9 hours. - Wound care consult # Acute Hyperkalemia, present on admission, resolved - Kayexalate via feeding tube was given per nephro on 09/07 - Continue to monitor # Acute stage II ulcers in the buttock areas, present on admission. - Continue with wound care and supportive care # History of alcohol dependence - No need to institute CIWA protocol at this time # History of drug dependence - Known user of cocaine and ice - Per family, last known use is around 5 months ago. Dispo: pending PEG tube, and likely placement. Patient likely to go home eventually GI Prophylaxis: Not indicated (Patient extubated) VTE Prophylaxis: Sub-Q Heparin (Unfractionated), SCDs VTE Mechanical Devices: Intermittant Pneumatic CD Resuscitation Status: CPR: Attempt Resuscitation ( is ADM) Catalino Salvador MD Sep 25, 2016 15:24
[2016-09-25] MEDS ORDERED: Piperacillin-Tazo 3.375 Gm Inj 3.375 GM in Dextrose 5% Minibag Plus 50 ML IV ONE (16:00)
--- NOTE | 2016-09-25 16:13 | NUR ---
Temp/Plan of Care Patient still having temperature, tepid sponge bath given. Repositioned every 2 hours. No skin breakdown. Patient will utter 1-2 words and smiles occasionally during bed side care. Watching Indonesian show most of the afternoon. aware of plan and cancellation of PEG insertion, Tube feeding resumed, tongue trimmer made aware. Will start IV antibiotic once urine sample is obtained. Will continue to monitor at this time.
--- NOTE | 2016-09-25 16:56 | NUR ---
NUTRITION FOLLOW UP: ASSESS: 41 YO male with anoxic brain injury, continues to be alert but non-verbal. JUWAN has resolved. TF were changed to bolus feeds on 09/23 per MD request as pt will likely not be able to have a pump available to him at home for tube feeds. Pt was supposed to have a PEG tube placed today but PEG tube cancelled due to fever, tachycardia and increasing leukocytosis, source unclear, but possibly due to aspiration pneumonia. PMHx: ETOH abuse. DIET: NPO. NUTRITION SUPPORT: Jevity 1.5~bolus of 400 mL 4 times per day, with 25 mL H2O flush before and after each bolus. Also 400 ML H2O bolus 4 times per day. TF and H2O bolus providing 2400 kcals, 102 g protein and 3016 ml free H20 per day. Fluids provided from flush dose and bolus dose will be the same volume as nephrology has ordered (300 mL every 4 hours). LABS: Reviewed. Cr .50, Alb 3.7, Glu 110, ALT 72 MEDICATIONS: Reviewed. GI: BM x 2 today. SKIN: Wounds healed per wound care note. ANTHROPOMETRICS: Current Wt: 87.3 kg. Admit wt: 95.1 kg. IBW: 72.7 kg ESTIMATED NEEDS: Calories: 1746-4866 kcal/day (25-30 kcal/kg BW) Protein: 85-110 g protein (1.2-1.5 g/kg BW IBW) Fluid: Approx. ~5509-2945 mL (25-35 mL/kg BW) but fluids per nephrology at this time. NUTRITION DIAGNOSIS: 1) Inadequate oral intake related to inability to consume sufficient energy due to cognition, as evidenced by NPO status - IMPROVED, PT TF AT GOAL. INTERVENTION: 1) Recommend continuing current TF at this time. 2) Modify TF orders if needed. MONITOR/EVALUATE: Enteral feeding, labs, weights, nutrition status. Follow per moderate nutrition risk guidelines.
[2016-09-25 17:59] LABS: APPEARANCE,URINE CLEAR (CLEAR,HAZY); COLOR,URINE YELLOW (YELLOW); OCCULT BLOOD,URINE SMALL (NEGATIVE); UROBILINOGEN,URINE NORMAL (NORMAL)
[2016-09-25 20:08] VITALS: BP 125/84; PULSE 119; RESP 18; O2SAT 98
[2016-09-25] MEDS: Piperacillin-Tazo 3.375 Gm Inj 3.375 GM in Dextrose 5% Minibag Plus 50 ML IV SCH (20:11)
[2016-09-25] MEDS: Desmopressin 100 mCg/mL 5 mL Nasal Spray NASAL SCH (20:12)
[2016-09-25] MEDS: Acetaminophen 32.5 mg/mL 20 mL Liquid PO PRN (20:13)
--- NOTE | 2016-09-26 03:32 | NUR ---
Temp/Nutrition Temp 39.1 with cool compresses and Tylenol given reducing temp to 36.4. Pt temp increased to 37.4 and cool compresses reapplied. No fever reducing meds given at this time. Pt repositioned q2hrs for comfort and pt continues with facial grimacing when moved. Oral care given. Please clarify with [facility] [employer] regarding feeding schedule bolus along with free water of 3016ml. Care continues.
[2016-09-26] MEDS: Piperacillin-Tazo 3.375 Gm Inj 3.375 GM in Dextrose 5% Minibag Plus 50 ML IV SCH ×4 (04:05→20:26)
[2016-09-26 04:30] VITALS: BP 123/76; PULSE 95; RESP 18; O2SAT 98
--- NOTE | 2016-09-26 05:27 | NUR ---
Pt stable VSS, IV ABO running and blood draw to be completed by this nurse. WCTM
[2016-09-26 06:25] LABS: BASOPHILS % (AUTO) 0.4 % (0-3); EOSINOPHILS % (AUTO) 1.7 % (0-5); MONOCYTES % (AUTO) 8.7 % (4-12); Mean Corpuscular Hemoglobin 29.4 pg (27.0-35.0); Mean Corpuscular Volume 92.5 fL (81-100); NEUTROPHILS % (AUTO) 65.1 % (40-74); Platelet Count 146 bil/L (150-400)
[2016-09-26 08:30] VITALS: BP 124/83; PULSE 98; RESP 16; O2SAT 99
[2016-09-26] MEDS: AMANTADINE 10 MG/ML TUBE SCH ×2 (10:13→20:26)
--- NOTE | 2016-09-26 14:40 | PCM.PNMED ---
Subjective Date of Service Sep 26, 2016 Subjective continues to have fever,temp 38.5 today,wbc improving .more alert today Exam Vital Signs Vital Sign - Last Date Time Temp Pulse Resp B/P Pulse Ox O2 Delivery O2 Flow Rate FiO2 09/26/16 08:30 38.5 98 16 124/83 99 Room Air Intake and Output 09/25/16 09/25/16 09/26/16 Cumulative From/Thru 15:00 23:00 07:00 08/23/16 05:20 - 09/25/16 19:18 Intake Total 268 ml 811768 ml Output Total 977598 ml Balance 268 ml 69336 ml Intake Oral 560 ml IV Total 68 ml 82976 ml Tube Feeding 200 ml 72162 ml TPN/PPN 726 ml Tube Irrigant 01583 ml Output Urine Total 21569 ml Stool Total 36303 ml Gastric Drainage Total 1070 ml Ultrafiltrate 4700 ml Other 330 ml # Voids 5 13 # Bowel Movements 0 18 Exam General: No Acute Distress Head: Normal Eyes: Scleral Anicteric Nose: Mucous Membr Moist/[place] Mouth: Mucous Membr Moist/[place] Neck: Supple Chest & Lungs: Chest Wall Normal, Clear to auscultation bilat Cardiovascular: Regular Rate/Rhythm Pulses: NL DP, PT Extremities: No cyanosis/clubbing/edema bilat stage 1 sacral decub,no evidence of infection Neurological: alert ,eyes open, non verbal mostly . following commands intermittently . Very limited movement of all extremities noted.power 2/5 all over IVs and Medications Medications Reviewed: Medications were reviewed in detail Lab and Diagnostics Result Diagram: 09/26/16 0555 09/26/16 0555 Microbiology Blood cultures pending MRSA swab pending X-Rays, CTs and MRIs CT BRAIN WITHOUT CONTRAST IMPRESSION: No acute disease. Dictated by: Hemant Gallegos M.D. on 08/23/2016 CT BRAIN WITHOUT CONTRAST IMPRESSION: 1. Diffuse bilateral hypodensity of the globus pallidus. This is a new finding when compared with the study dated 08/23/16. Differential considerations include anoxic injury, carbon monoxide neurotoxicity, excessive alcohol ingestion, and methanol or ethylene glycol ingestion. Dictated by: Dinora Kang M.D. 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 Dictated by: Jacob Mosqueda M.D. on 08/28/2016 MRI STROKE PROTOCOL IMPRESSION: BRAIN MRI: Continued worsening of ischemic injury to the brain parenchyma, symmetric bilaterally, and best seen in the deep white matter of the lentiform nuclei, the wolfe radiata, and the centrum semiovale. No associated hemorrhage. BRAIN MR ANGIOGRAM: No acute disease to the intracranial arterial vasculature. NECK MR ANGIOGRAM: Normal cervical MR angiogram. The estimate of stenosis included in the report of the imaging study was calculated using the NASCET method Dictated by: Jack Padilla M.D. on 09/15/2016 CT CHEST WITHOUT CONTRAST IMPRESSION: Small basal left pleural effusion is unchanged, with associated left lower lobe compressive atelectasis. Superimposed pneumonia therefore cannot be excluded. Dictated by: Binh Ochoa M.D. on 09/07/2016 at 13:47 US RENAL SONOGRAM IMPRESSION: No hydronephrosis. Right renal cyst. Dictated by: Shobha Vale M.D. on 08/24/2016 US ABDOMEN, LIMITED IMPRESSION: Cholelithiasis, without justin gallbladder wall thickening to suggest acute cholecystitis at this time. Dictated by: Binh Ochoa M.D. on 09/07/2016 MR ABDOMEN MRCP IMPRESSION: 1. Markedly limited study due to motion artifact. 2. Cholelithiasis without evidence of cholecystitis. 3. No biliary ductal dilatation or definite choledocholithiasis. 4. No peripancreatic edema to suggest pancreatitis an MRI. No discrete pseudocyst identified. Dictated by: Bruce Valadez M.D. on 09/08/2016 at 17:47 US ABDOMEN IMPRESSION: 1. Cholelithiasis. 2. Mild gallbladder wall thickening. Acute cholecystitis cannot be excluded. 3. Echogenic liver. Finding typically represents fatty infiltration; however, finding is nonspecific and correlation with clinical and laboratory findings is recommended to exclude other etiologies including hepatic cirrhosis. 4. Slightly echogenic right kidney suspicious for developing medical renal disease. Please correlate with clinical and laboratory data. Dictated by: Swathi Jimenes MD, PhD on 08/29/2016 US ABDOMEN, LIMITED IMPRESSION: Cholelithiasis, without justin gallbladder wall thickening to suggest acute cholecystitis at this time. Dictated by: Binh Ochoa M.D. on 09/07/2016 X-RAY CHEST ONE VIEW, PORTABLE IMPRESSION: No acute disease is seen a semiupright portable chest. Tubes are considered appropriate radiographically. Dictated by: Hemant Gallegos M.D. on 08/23/2016 X-RAY CHEST ONE VIEW, PORTABLE IMPRESSION: Support lines as above. Otherwise, no acute pulmonary process. Dictated by: Shobha Vale M.D. on 08/24/2016 X-RAY CHEST ONE VIEW, PORTABLE IMPRESSION: No acute cardiopulmonary disease process. Dictated by: Swathi Jimenes MD, PhD on 08/25/2016 X-RAY CHEST ONE VIEW, PORTABLE IMPRESSION: 1. Left basilar atelectasis. Otherwise lungs are clear. 2. ET and enteric tubes. Dictated by: Jacob Mosqueda M.D. on 08/27/2016 at 9:53 X-RAY CHEST ONE VIEW, PORTABLE IMPRESSION: Stable left basilar atelectasis and support lines. Dictated by: Jacob Mosqueda M.D. on 08/28/2016 at 7:54 Date of Service: 09/15/16 1757 PROCEDURE: MRI STROKE PROTOCOL ([id number]) IMPRESSION: BRAIN MRI: Continued worsening of ischemic injury to the brain parenchyma, symmetric bilaterally, and best seen in the deep white matter of the lentiform nuclei, the wolfe radiata, and the centrum semiovale. No associated hemorrhage. BRAIN MR ANGIOGRAM: No acute disease to the intracranial arterial vasculature. NECK MR ANGIOGRAM: Normal cervical MR angiogram. The estimate of stenosis included in the report of the imaging study was calculated using the NASCET method Dictated by: Jack Padilla M.D. on 09/15/2016 at 21:36 Approved by: Jack Padilla M.D. on 09/15/2016 at 21:42 Additional Diagnostics ABG DateTimeAnalyzed 10:20:00 -_ pH ____7.354 - 7.350 7.450 pCO2 ___31.5__ -mmHg 35.0 45.0 pO2 160 -mmHg 69.0 116 HCO3- ___17.1__ -mmol/L 22.0 26.0 FIO2 ___45.0__ -% PRVC 20 - PEEP ____8.0__ -cmH2O Assessment & Plan 41 year old male with known history of alcohol and drug use presented unresponsive after being found with vomit around him, sedated and intubated for acute hypoxemic respiratory failure secondary to aspiration for 5 days and extubated on hospital day 6 following successful spontaneous breathing trial. # suspected new episode of sepsis due to complicated UTI ,onset 09/25 -Temp 39.2, which is significantly higher than his temp trend,new tachycardia HR in 111, worsening leukocytosis from 13 to 23 -Unclear source but likely due to UTI -Blood culture pending,cxr persistent LLL infiltrate, urinalysis pyuria,ucx mixed marcia.no decub ulcer ,will consider removing PICC ( Has been in place for 1 month ) - started empiric antibiotics zosyn to for aspiration pneumonia and UTI .will narrow to ceftriaxone just to cover UTI if no further evidence of pneumonia -will consider MRCP or CT abdomen given recent cholecystitis if no improvement.RUQ soft on exam # Acute anoxic Brain Injury, present on admission. Ongoing - Strongly suspected anoxic brain injury given presenting history - Secondary to aspiration and intoxication. Patient had large volume of vomit suctioned out in the ED. initial toxicology screen done only for salycilate, alcohol and acetaminophen which is unremarkable - Initial EEG showed evidence of slowing but no other abnormalities to suggest that the patient is having clinical seizures causing his symptoms. - Intubated on 08/23/16, Extubated on 08/28/16. - Zosyn was given for 7 days earlier in the hospital course but was stopped per ID recommendation. - Patient with reported neurologic deterioration few days after extubation and transfer out of ICU - Repeat MRI of brain on 09/15/16 showing: "Continued worsening of ischemic injury to the brain parenchyma, symmetric bilaterally" - Anoxic brain injury and its progression is most likely diagnosis at this time. However, given no obvious source of infection and remote likelihood of vasculitis, per discussion with Dr. Jara a trial of steroid therapy ( Prednisone 80mg daily x 3 days) given on 09/17/16 to see if we will achieve any significant improvement in neuro symptoms. No obvious improvement noted with 3 days of Prednisone treatment. - Per neuro recommendation increased Amantadine to 100mg bid on 09/20/16 - Increase amantadine gradually up to a goal dose of 400 mg daily. 100 mg twice a day for one week, then 100 mg in the morning and 200 mg in the evening for one week ( started on 09/24) , and then 200 mg twice daily thereafter. - Post LP and CTA brain on 09/16/16. - Appreciate neurology consult. Will followup with recs - findings and plan were discussed with neuro consult (Dr. Jara) by prior hospitalist on 09/17/16 . Neuro reviewed these findings with [facility] neurology. # Acute fevers, not present on admission. ongoing - Appreciate ID consult. Will followup with recs - Per ID consult, fevers thought to be likely due to central etiology. - Initially though due to Pancreatitis or Cholecystitis. UA is negative - Completed course of Ertapenem. - MRCP did not show further evidence of Pancreatitis or Cholecystitis. - Blood cultures negative. - Vasculitis workup and LP as noted above # Acute dysphagia. Likely due to anoxic brain injury noted above. Present on admission. - Per earlier notes: "After Family meeting on 09/13, has requested MBS attempted again and would like to be present." - Pt failed MBS on 09/15 due to inability to fully follow instructions. - Continue with Ngtube feed - Discussed PEG placement on 09/22/16 with patient's . At this time she wants everything done to keep patient alive including a PEG tube. However, she also wants the rest of the family to be present for decision making and to have doctors explain things to the rest of the family as well. -palliative care discussed goals of care with family members ,they opted PEG tube. Consulted gastroenterology for PEG tube placement. Initially scheduled for 09/25 but canceled due to new sepsis # Mild acute hypernatremia, not present on admission, active. - Appreciate nephrology consult. Will followup with recs -Currently on DDAVP mcg IV bid .switched to nasal DDVAP 20mch hs per nephrology. Plan to continue upon discharge. Plan to follow with nephrology in 3 weeks # Acute Kidney Injury, present on admission. Resolved - Cr on admission at 3.52 and increasing after admission. Unknown history of kidney injury. - Appreciate nephrology consult. Will followup with recs - Hemodialysis done daily starting 08/25/16 and then stopped. No longer on hemodialysis and catheter removed - Free water flushes 300 ml q 4 hr. - Continue DDAVP for now # Acute Cholecystitis, present on admission. Resolved - Acute cholecystitis based on HIDA scan and abdominal CT. - Gen. surgery was consulted, Dr. Dahs as intial thought of CCK. Upon follow up MRCP was negative for Acute Pancreatitis and Chronic cholecystitis. - Resolved cholelithiasis w/o choledocholithiasis. - No surgery indicated at this time given improvement. - TPN stopped on 09/06/16 as this was thought to be worsening cholecystitis and pancreatitis. # Acute Metabolic Acidosis, present on admission. Improved - Likely secondary to lactic acidosis and uremia - Monitor CMP: # Acute Rhabdomyolysis, present on admission, [place] [id number]. Likely secondary to being in one position for 9 hours. - Wound care consult # Acute Hyperkalemia, present on admission, resolved - Kayexalate via feeding tube was given per nephro on 09/07 - Continue to monitor # Acute stage II ulcers in the buttock areas, present on admission. - Continue with wound care and supportive care # History of alcohol dependence - No need to institute CIWA protocol at this time # History of drug dependence - Known user of cocaine and ice - Per family, last known use is around 5 months ago. Dispo: pending improvement of new sepsis and PEG tube placement. Patient likely to go home eventually GI Prophylaxis: Not indicated (Patient extubated) VTE Prophylaxis: Sub-Q Heparin (Unfractionated), SCDs VTE Mechanical Devices: Intermittant Pneumatic CD Resuscitation Status: CPR: Attempt Resuscitation ( is ADM) Catalino Salvador MD Sep 26, 2016 14:40
--- NOTE | 2016-09-26 16:26 | NUR ---
Neurological exam unchanged. Persistent fevers continue. PICC removed today after PIV placement.
[2016-09-26 17:30] VITALS: BP 119/82; PULSE 115; RESP 16; O2SAT 98
[2016-09-26] MEDS: Desmopressin 100 mCg/mL 5 mL Nasal Spray NASAL SCH (20:26)
[2016-09-26 22:00] VITALS: BP 121/82; PULSE 87; RESP 17; O2SAT 99
[2016-09-27] MEDS: Piperacillin-Tazo 3.375 Gm Inj 3.375 GM in Dextrose 5% Minibag Plus 50 ML IV SCH ×3 (04:03→20:55)
[2016-09-27 04:13] VITALS: BP 125/77; PULSE 89; RESP 17; O2SAT 98
--- NOTE | 2016-09-27 05:43 | NUR ---
Antibiotic Patient continues with IV zosyn per order, PIV intact and flushes well, hourly checks, family at bedside.
[2016-09-27] MEDS: AMANTADINE 10 MG/ML TUBE SCH ×2 (08:39→20:56)
[2016-09-27 10:20] VITALS: BP 129/81; PULSE 89; RESP 16; O2SAT 98
--- NOTE | 2016-09-27 13:14 | PCM.PNMED ---
Subjective Date of Service Sep 27, 2016 Subjective patient more alert today. continues to have fever Exam Vital Signs Vital Sign - Last Date Time Temp Pulse Resp B/P Pulse Ox O2 Delivery O2 Flow Rate FiO2 09/27/16 10:20 37.6 89 16 129/81 98 Room Air Intake and Output 09/26/16 09/26/16 09/27/16 Cumulative From/Thru 15:00 23:00 07:00 08/23/16 05:20 - 09/27/16 06:06 Intake Total 1600 ml 118 ml 1729 ml 232558 ml Output Total 350 ml 200 ml 800 ml 022395 ml Balance 1250 ml -82 ml 929 ml 16330 ml Intake Oral 560 ml IV Total 118 ml 120 ml 12571 ml Tube Feeding 1609 ml 52897 ml TPN/PPN 800 ml 1526 ml Tube Irrigant 800 ml 23622 ml Output Urine Total 350 ml 200 ml 800 ml 23189 ml Stool Total 77174 ml Gastric Drainage Total 1070 ml Ultrafiltrate 4700 ml Other 330 ml # Voids 13 # Bowel Movements 18 Exam General: No Acute Distress Head: Normal Eyes: Scleral Anicteric Nose: Mucous Membr Moist/[place] Mouth: Mucous Membr Moist/[place] Neck: Supple Chest & Lungs: Chest Wall Normal, Clear to auscultation bilat Cardiovascular: Regular Rate/Rhythm Pulses: NL DP, PT Extremities: No cyanosis/clubbing/edema bilat stage 1 sacral decub,no evidence of infection Neurological: alert ,eyes open, non verbal mostly . following commands intermittently . Very limited movement of all extremities noted.power 2/5 all over IVs and Medications Medications Reviewed: Medications were reviewed in detail Lab and Diagnostics Result Diagram: 09/26/16 0555 09/26/16 0555 Microbiology Blood cultures pending MRSA swab pending X-Rays, CTs and MRIs CT BRAIN WITHOUT CONTRAST IMPRESSION: No acute disease. Dictated by: Hemant Gallegos M.D. on 08/23/2016 CT BRAIN WITHOUT CONTRAST IMPRESSION: 1. Diffuse bilateral hypodensity of the globus pallidus. This is a new finding when compared with the study dated 08/23/16. Differential considerations include anoxic injury, carbon monoxide neurotoxicity, excessive alcohol ingestion, and methanol or ethylene glycol ingestion. Dictated by: Dinora Kang M.D. 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 Dictated by: Jacob Mosqueda M.D. on 08/28/2016 MRI STROKE PROTOCOL IMPRESSION: BRAIN MRI: Continued worsening of ischemic injury to the brain parenchyma, symmetric bilaterally, and best seen in the deep white matter of the lentiform nuclei, the wolfe radiata, and the centrum semiovale. No associated hemorrhage. BRAIN MR ANGIOGRAM: No acute disease to the intracranial arterial vasculature. NECK MR ANGIOGRAM: Normal cervical MR angiogram. The estimate of stenosis included in the report of the imaging study was calculated using the NASCET method Dictated by: Jack Padilla M.D. on 09/15/2016 CT CHEST WITHOUT CONTRAST IMPRESSION: Small basal left pleural effusion is unchanged, with associated left lower lobe compressive atelectasis. Superimposed pneumonia therefore cannot be excluded. Dictated by: Binh Ochoa M.D. on 09/07/2016 at 13:47 US RENAL SONOGRAM IMPRESSION: No hydronephrosis. Right renal cyst. Dictated by: Shobha aVle M.D. on 08/24/2016 US ABDOMEN, LIMITED IMPRESSION: Cholelithiasis, without justin gallbladder wall thickening to suggest acute cholecystitis at this time. Dictated by: Binh Ochoa M.D. on 09/07/2016 MR ABDOMEN MRCP IMPRESSION: 1. Markedly limited study due to motion artifact. 2. Cholelithiasis without evidence of cholecystitis. 3. No biliary ductal dilatation or definite choledocholithiasis. 4. No peripancreatic edema to suggest pancreatitis an MRI. No discrete pseudocyst identified. Dictated by: Bruce Valadez M.D. on 09/08/2016 at 17:47 US ABDOMEN IMPRESSION: 1. Cholelithiasis. 2. Mild gallbladder wall thickening. Acute cholecystitis cannot be excluded. 3. Echogenic liver. Finding typically represents fatty infiltration; however, finding is nonspecific and correlation with clinical and laboratory findings is recommended to exclude other etiologies including hepatic cirrhosis. 4. Slightly echogenic right kidney suspicious for developing medical renal disease. Please correlate with clinical and laboratory data. Dictated by: Swathi Jimenes MD, PhD on 08/29/2016 US ABDOMEN, LIMITED IMPRESSION: Cholelithiasis, without justin gallbladder wall thickening to suggest acute cholecystitis at this time. Dictated by: Binh Ochoa M.D. on 09/07/2016 X-RAY CHEST ONE VIEW, PORTABLE IMPRESSION: No acute disease is seen a semiupright portable chest. Tubes are considered appropriate radiographically. Dictated by: Hemant Gallegos M.D. on 08/23/2016 X-RAY CHEST ONE VIEW, PORTABLE IMPRESSION: Support lines as above. Otherwise, no acute pulmonary process. Dictated by: Shobha Vale M.D. on 08/24/2016 X-RAY CHEST ONE VIEW, PORTABLE IMPRESSION: No acute cardiopulmonary disease process. Dictated by: Swathi Jimenes MD, PhD on 08/25/2016 X-RAY CHEST ONE VIEW, PORTABLE IMPRESSION: 1. Left basilar atelectasis. Otherwise lungs are clear. 2. ET and enteric tubes. Dictated by: Jacob Mosqueda M.D. on 08/27/2016 at 9:53 X-RAY CHEST ONE VIEW, PORTABLE IMPRESSION: Stable left basilar atelectasis and support lines. Dictated by: Jacob Mosqueda M.D. on 08/28/2016 at 7:54 Date of Service: 09/15/16 1757 PROCEDURE: MRI STROKE PROTOCOL ([id number]) IMPRESSION: BRAIN MRI: Continued worsening of ischemic injury to the brain parenchyma, symmetric bilaterally, and best seen in the deep white matter of the lentiform nuclei, the wolfe radiata, and the centrum semiovale. No associated hemorrhage. BRAIN MR ANGIOGRAM: No acute disease to the intracranial arterial vasculature. NECK MR ANGIOGRAM: Normal cervical MR angiogram. The estimate of stenosis included in the report of the imaging study was calculated using the NASCET method Dictated by: Jack Padilla M.D. on 09/15/2016 at 21:36 Approved by: Jack Padilla M.D. on 09/15/2016 at 21:42 Additional Diagnostics ABG DateTimeAnalyzed 10:20:00 -_ pH ____7.354 - 7.350 7.450 pCO2 ___31.5__ -mmHg 35.0 45.0 pO2 160 -mmHg 69.0 116 HCO3- ___17.1__ -mmol/L 22.0 26.0 FIO2 ___45.0__ -% PRVC 20 - PEEP ____8.0__ -cmH2O Assessment & Plan 41 year old male with known history of alcohol and drug use presented unresponsive after being found with vomit around him, sedated and intubated for acute hypoxemic respiratory failure secondary to aspiration for 5 days and extubated on hospital day 6 following successful spontaneous breathing trial. # suspected new episode of sepsis due to complicated UTI ,onset 09/25 -on 09/25 Temp 39.2, which is significantly higher than his temp trend,new tachycardia HR in 111, worsening leukocytosis from 13 to 23 -Unclear source but likely due to UTI -Blood culture pending,cxr persistent LLL infiltrate, urinalysis pyuria,ucx mixed marcia.no decub ulcer ,PICC removed 09/26 ( Has been in place for 1 month ) - started empiric antibiotics zosyn to for aspiration pneumonia and UTI .will consider narrow to ceftriaxone just to cover UTI as no further evidence of pneumonia -will consider MRCP or CT abdomen given recent cholecystitis if no improvement.RUQ soft on exam # Acute anoxic Brain Injury, present on admission. Ongoing - Strongly suspected anoxic brain injury given presenting history - Secondary to aspiration and intoxication. Patient had large volume of vomit suctioned out in the ED. initial toxicology screen done only for salycilate, alcohol and acetaminophen which is unremarkable - Initial EEG showed evidence of slowing but no other abnormalities to suggest that the patient is having clinical seizures causing his symptoms. - Intubated on 08/23/16, Extubated on 08/28/16. - Zosyn was given for 7 days earlier in the hospital course but was stopped per ID recommendation. - Patient with reported neurologic deterioration few days after extubation and transfer out of ICU - Repeat MRI of brain on 09/15/16 showing: "Continued worsening of ischemic injury to the brain parenchyma, symmetric bilaterally" - Anoxic brain injury and its progression is most likely diagnosis at this time. However, given no obvious source of infection and remote likelihood of vasculitis, per discussion with Dr. Jara a trial of steroid therapy ( Prednisone 80mg daily x 3 days) given on 09/17/16 to see if we will achieve any significant improvement in neuro symptoms. No obvious improvement noted with 3 days of Prednisone treatment. - Per neuro recommendation increased Amantadine to 100mg bid on 09/20/16 - Increase amantadine gradually up to a goal dose of 400 mg daily. 100 mg twice a day for one week, then 100 mg in the morning and 200 mg in the evening for one week ( started on 09/24) , and then 200 mg twice daily thereafter. -Post LP and CTA brain on 09/16/16. - Appreciate neurology consult. Will followup with recs -findings and plan were discussed with neuro consult (Dr. Jara) by prior hospitalist on 09/17/16 . Neuro reviewed these findings with [facility] neurology. # Acute fevers, not present on admission. ongoing - Appreciate ID consult. Will followup with recs - Per ID consult, fevers thought to be likely due to central etiology. - Initially though due to Pancreatitis or Cholecystitis. UA is negative - Completed course of Ertapenem. - MRCP did not show further evidence of Pancreatitis or Cholecystitis. - Blood cultures negative. - Vasculitis workup and LP as noted above # Acute dysphagia. Likely due to anoxic brain injury noted above. Present on admission. - Per earlier notes: "After Family meeting on 09/13, has requested MBS attempted again and would like to be present." - Pt failed MBS on 09/15 due to inability to fully follow instructions. - Continue with Ngtube feed - Discussed PEG placement on 09/22/16 with patient's . At this time she wants everything done to keep patient alive including a PEG tube. However, she also wants the rest of the family to be present for decision making and to have doctors explain things to the rest of the family as well. -palliative care discussed goals of care with family members ,they opted PEG tube. Consulted gastroenterology for PEG tube placement. Initially scheduled for 09/25 but canceled due to new sepsis -rescheduled for Friday 09/29,npo thursday [place] # Mild acute hypernatremia, not present on admission, active. - Appreciate nephrology consult. Will followup with recs -Currently on DDAVP mcg IV bid .switched to nasal DDVAP 20mch hs per nephrology. Plan to continue upon discharge. Plan to follow with nephrology in 3 weeks # Acute Kidney Injury, present on admission. Resolved - Cr on admission at 3.52 and increasing after admission. Unknown history of kidney injury. - Appreciate nephrology consult. Will followup with recs - Hemodialysis done daily starting 08/25/16 and then stopped. No longer on hemodialysis and catheter removed - Free water flushes 300 ml q 4 hr. - Continue DDAVP for now # Acute Cholecystitis, present on admission. Resolved - Acute cholecystitis based on HIDA scan and abdominal CT. - Gen. surgery was consulted, Dr. Dash as intial thought of CCK. Upon follow up MRCP was negative for Acute Pancreatitis and Chronic cholecystitis. - Resolved cholelithiasis w/o choledocholithiasis. - No surgery indicated at this time given improvement. - TPN stopped on 09/06/16 as this was thought to be worsening cholecystitis and pancreatitis. # Acute Metabolic Acidosis, present on admission. Improved - Likely secondary to lactic acidosis and uremia - Monitor CMP: # Acute Rhabdomyolysis, present on admission, [place] [id number]. Likely secondary to being in one position for 9 hours. - Wound care consult # Acute Hyperkalemia, present on admission, resolved - Kayexalate via feeding tube was given per nephro on 09/07 - Continue to monitor # Acute stage II ulcers in the buttock areas, present on admission. - Continue with wound care and supportive care # History of alcohol dependence - No need to institute CIWA protocol at this time # History of drug dependence - Known user of cocaine and ice - Per family, last known use is around 5 months ago. Dispo: pending improvement of new sepsis and PEG tube placement. Patient likely to go home eventually GI Prophylaxis: Not indicated (Patient extubated) VTE Prophylaxis: Sub-Q Heparin (Unfractionated), SCDs VTE Mechanical Devices: Intermittant Pneumatic CD Resuscitation Status: CPR: Attempt Resuscitation ( is ADM) Catalino Salvador MD Sep 27, 2016 13:14
--- NOTE | 2016-09-27 15:11 | NUR ---
NUTRITION FOLLOW UP: ASSESS: 41 YO male with anoxic brain injury, continues to be alert but non-verbal. JUWAN has resolved. Enteral feeding schedule changed to bolus feeds on 09/23 per MD request as pt will likely not be able to have a pump available to him at home for tube feeds. Pt was scheduled to have a PEG tube placed 09/25; however PEG tube placement cancelled due to fever, tachycardia and increasing leukocytosis, source unclear, but possibly due to aspiration pneumonia. RD has had several calls from nursing on [facility] past several days with questions regarding bolus feeding; there appears to be some confusion. PMHx: ETOH abuse. DIET: NPO. NUTRITION SUPPORT: Jevity 1.5~bolus of 400 mL 4 times per day, with 25 mL H2O flush before and after each bolus. Also 400 ML H2O bolus 4 times per day. TF and H2O bolus providing 2400 kcals, 102 g protein and 3016 ml free H20 per day. Fluids provided from flush dose and bolus dose will be the same volume as nephrology has ordered (300 mL every 4 hours). LABS: Reviewed. BUN 24, Cr 0.45, Glu 131, ALT 65. MEDICATIONS: Reviewed. GI: BM x 2 (09/25). SKIN: Wounds healed per wound care note. ANTHROPOMETRICS: Current Wt: 87.3 kg. Admit wt: 95.1 kg. IBW: 72.7 kg ESTIMATED NEEDS: Calories: 9842-0510 kcal/day (25-30 kcal/kg BW) Protein: 85-110 g protein (1.2-1.5 g/kg BW IBW) Fluid: Approx. ~4725-0119 mL (25-35 mL/kg BW) but fluids per nephrology at this time. NUTRITION DIAGNOSIS: 1) Inadequate oral intake related to inability to consume sufficient energy due to cognition, as evidenced by NPO status - IMPROVED WITH ENTERAL FEEDING AT GOAL RATE. INTERVENTION: 1) Recommend changing enteral feeding schedule from bolus feed to continuous feed to mitigate confusion on part of [facility] nursing. Recommend Jevity 1.5 at goal rate 70 ML/hr, 350 ML H20 flush every 4 hours providing 2415 kcals, 103 g protein, 3324 ml free H2O. MONITOR/EVALUATE: Enteral feeding changes / tolerance, labs, weights, nutrition status. Follow per moderate nutrition risk guidelines.
[2016-09-27 16:56] VITALS: BP 131/88; PULSE 113; RESP 16; O2SAT 97
--- NOTE | 2016-09-27 19:07 | NUR ---
Condom Catheter Patient brief found to be saturated and condom catheter had fallen off. Condom catheter replaced draining yellow urine.
[2016-09-27] MEDS: Desmopressin 100 mCg/mL 5 mL Nasal Spray NASAL SCH (20:55)
[2016-09-27 21:31] VITALS: BP 126/81; PULSE 106; RESP 20; O2SAT 96
[2016-09-28] MEDS: Piperacillin-Tazo 3.375 Gm Inj 3.375 GM in Dextrose 5% Minibag Plus 50 ML IV SCH ×3 (04:57→20:02)
[2016-09-28 06:05] VITALS: BP 132/83; PULSE 116; RESP 19; O2SAT 96
--- NOTE | 2016-09-28 06:33 | NUR ---
Shift note Uneventful night TQ2, 2 bolus feeds w/flushes following, no BM 2night adequate urine output continues w/low grade fevers not >38.
[2016-09-28] MEDS: AMANTADINE 10 MG/ML TUBE SCH ×2 (08:17→21:11)
[2016-09-28 09:41] LABS: BASOPHILS % (AUTO) 0.5 % (0-3); EOSINOPHILS % (AUTO) 1.4 % (0-5); MONOCYTES % (AUTO) 7.6 % (4-12); Mean Corpuscular Hemoglobin 29.4 pg (27.0-35.0); Mean Corpuscular Volume 90.8 fL (81-100); Platelet Count 165 bil/L (150-400)
[2016-09-28 10:14] LABS: Magnesium 2.2 mg/dL (1.6-2.6); Phosphorus 3.9 mg/dL (2.5-4.9)
[2016-09-28 11:59] VITALS: BP 129/86; PULSE 109; RESP 18; O2SAT 99
--- NOTE | 2016-09-28 14:56 | PCM.PNMED ---
Subjective Date of Service Sep 28, 2016 Subjective remains alert but nonverbal. continues to have low grade fever but no spikes , leukocytosis improving Exam Vital Signs Vital Sign - Last Date Time Temp Pulse Resp B/P Pulse Ox O2 Delivery O2 Flow Rate FiO2 09/28/16 11:59 37.5 109 18 129/86 99 Room Air Intake and Output 09/27/16 09/27/16 09/28/16 Cumulative From/Thru 15:00 23:00 07:00 08/23/16 05:20 - 09/28/16 06:20 Intake Total 80 ml 1270 ml 1727 ml 176743 ml Output Total 600 ml 720 ml 882239 ml Balance 80 ml 670 ml 1007 ml 21391 ml Intake Oral 560 ml IV Total 80 ml 70 ml 127 ml 65460 ml Tube Feeding 800 ml 800 ml 06166 ml TPN/PPN 1526 ml Tube Irrigant 400 ml 800 ml 30998 ml Output Urine Total 600 ml 720 ml 66957 ml Stool Total 16925 ml Gastric Drainage Total 1070 ml Ultrafiltrate 4700 ml Other 330 ml # Voids 1 14 # Bowel Movements 1 19 Exam General: mild respiratory Distress,NG tube in place Head: Normal Eyes: Scleral Anicteric Nose: Mucous Membr Moist/[place] Mouth: Mucous Membr Moist/[place] Neck: Supple Chest & Lungs: ronchi on lower chest bilaterally Cardiovascular: Regular Rate/Rhythm Pulses: NL DP, PT Extremities: No cyanosis/clubbing/edema bilat stage 1 sacral decub,no evidence of infection Neurological: alert ,eyes open, non verbal mostly . following commands intermittently . Very limited movement of all extremities noted.power 2/5 all over IVs and Medications Medications Reviewed: Medications were reviewed in detail Lab and Diagnostics Result Diagram: 09/28/1692609/28/16926 Microbiology Blood cultures pending MRSA swab pending X-Rays, CTs and MRIs CT BRAIN WITHOUT CONTRAST IMPRESSION: No acute disease. Dictated by: Hemant Gallegos M.D. on 08/23/2016 CT BRAIN WITHOUT CONTRAST IMPRESSION: 1. Diffuse bilateral hypodensity of the globus pallidus. This is a new finding when compared with the study dated 08/23/16. Differential considerations include anoxic injury, carbon monoxide neurotoxicity, excessive alcohol ingestion, and methanol or ethylene glycol ingestion. Dictated by: Dinora Kang M.D. 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 Dictated by: Jacob Mosqueda M.D. on 08/28/2016 MRI STROKE PROTOCOL IMPRESSION: BRAIN MRI: Continued worsening of ischemic injury to the brain parenchyma, symmetric bilaterally, and best seen in the deep white matter of the lentiform nuclei, the wolfe radiata, and the centrum semiovale. No associated hemorrhage. BRAIN MR ANGIOGRAM: No acute disease to the intracranial arterial vasculature. NECK MR ANGIOGRAM: Normal cervical MR angiogram. The estimate of stenosis included in the report of the imaging study was calculated using the NASCET method Dictated by: Jack Padilla M.D. on 09/15/2016 CT CHEST WITHOUT CONTRAST IMPRESSION: Small basal left pleural effusion is unchanged, with associated left lower lobe compressive atelectasis. Superimposed pneumonia therefore cannot be excluded. Dictated by: Binh Ochoa M.D. on 09/07/2016 at 13:47 US RENAL SONOGRAM IMPRESSION: No hydronephrosis. Right renal cyst. Dictated by: Shobha Vale M.D. on 08/24/2016 US ABDOMEN, LIMITED IMPRESSION: Cholelithiasis, without justin gallbladder wall thickening to suggest acute cholecystitis at this time. Dictated by: Binh Ochoa M.D. on 09/07/2016 MR ABDOMEN MRCP IMPRESSION: 1. Markedly limited study due to motion artifact. 2. Cholelithiasis without evidence of cholecystitis. 3. No biliary ductal dilatation or definite choledocholithiasis. 4. No peripancreatic edema to suggest pancreatitis an MRI. No discrete pseudocyst identified. Dictated by: Bruce Valadez M.D. on 09/08/2016 at 17:47 US ABDOMEN IMPRESSION: 1. Cholelithiasis. 2. Mild gallbladder wall thickening. Acute cholecystitis cannot be excluded. 3. Echogenic liver. Finding typically represents fatty infiltration; however, finding is nonspecific and correlation with clinical and laboratory findings is recommended to exclude other etiologies including hepatic cirrhosis. 4. Slightly echogenic right kidney suspicious for developing medical renal disease. Please correlate with clinical and laboratory data. Dictated by: Swathi Jimenes MD, PhD on 08/29/2016 US ABDOMEN, LIMITED IMPRESSION: Cholelithiasis, without justin gallbladder wall thickening to suggest acute cholecystitis at this time. Dictated by: Binh Ochoa M.D. on 09/07/2016 X-RAY CHEST ONE VIEW, PORTABLE IMPRESSION: No acute disease is seen a semiupright portable chest. Tubes are considered appropriate radiographically. Dictated by: Hemant Gallegos M.D. on 08/23/2016 X-RAY CHEST ONE VIEW, PORTABLE IMPRESSION: Support lines as above. Otherwise, no acute pulmonary process. Dictated by: Shobha Vale M.D. on 08/24/2016 X-RAY CHEST ONE VIEW, PORTABLE IMPRESSION: No acute cardiopulmonary disease process. Dictated by: Swathi Jimenes MD, PhD on 08/25/2016 X-RAY CHEST ONE VIEW, PORTABLE IMPRESSION: 1. Left basilar atelectasis. Otherwise lungs are clear. 2. ET and enteric tubes. Dictated by: Jacob Mosqueda M.D. on 08/27/2016 at 9:53 X-RAY CHEST ONE VIEW, PORTABLE IMPRESSION: Stable left basilar atelectasis and support lines. Dictated by: Jacob Mosqueda M.D. on 08/28/2016 at 7:54 Date of Service: 09/15/16 1757 PROCEDURE: MRI STROKE PROTOCOL ([id number]) IMPRESSION: BRAIN MRI: Continued worsening of ischemic injury to the brain parenchyma, symmetric bilaterally, and best seen in the deep white matter of the lentiform nuclei, the wolfe radiata, and the centrum semiovale. No associated hemorrhage. BRAIN MR ANGIOGRAM: No acute disease to the intracranial arterial vasculature. NECK MR ANGIOGRAM: Normal cervical MR angiogram. The estimate of stenosis included in the report of the imaging study was calculated using the NASCET method Dictated by: Jack Padilla M.D. on 09/15/2016 at 21:36 Approved by: Jack Padilla M.D. on 09/15/2016 at 21:42 Additional Diagnostics ABG DateTimeAnalyzed 10:20:00 -_ pH ____7.354 - 7.350 7.450 pCO2 ___31.5__ -mmHg 35.0 45.0 pO2 160 -mmHg 69.0 116 HCO3- ___17.1__ -mmol/L 22.0 26.0 FIO2 ___45.0__ -% PRVC 20 - PEEP ____8.0__ -cmH2O Assessment & Plan 41 year old male with known history of alcohol and drug use presented unresponsive after being found with vomit around him, sedated and intubated for acute hypoxemic respiratory failure secondary to aspiration for 5 days and extubated on hospital day 6 following successful spontaneous breathing trial. # suspected new episode of sepsis due to complicated UTI ,onset 09/25 -on 09/25 Temp 39.2, which is significantly higher than his temp trend,new tachycardia HR in 111, worsening leukocytosis from 13 to 23 -Unclear source but likely due to UTI -Blood culture 09/25 no growth ,cxr persistent LLL infiltrate, urinalysis pyuria, ucx mixed marcia.no decub ulcer ,PICC removed 09/26 ( Has been in place for 1 month ) - started empiric antibiotics zosyn to for aspiration pneumonia and UTI .fever and wbc improved .will consider discontinuing antibiotics on 10/01 (plan to treat for 7 days) . -will consider MRCP or CT abdomen given recent cholecystitis if no improvement.RUQ soft on exam for now # Acute anoxic Brain Injury, present on admission. Ongoing - Strongly suspected anoxic brain injury given presenting history - Secondary to aspiration and intoxication. Patient had large volume of vomit suctioned out in the ED. initial toxicology screen done only for salycilate, alcohol and acetaminophen which is unremarkable - Initial EEG showed evidence of slowing but no other abnormalities to suggest that the patient is having clinical seizures causing his symptoms. - Intubated on 08/23/16, Extubated on 08/28/16. - Zosyn was given for 7 days earlier in the hospital course but was stopped per ID recommendation.now restarted on 09/25 - Repeat MRI of brain on 09/15/16 showing: "Continued worsening of ischemic injury to the brain parenchyma, symmetric bilaterally" - Anoxic brain injury and its progression is most likely diagnosis at this time. However, given no obvious source of infection and remote likelihood of vasculitis, per discussion with Dr. Jara a trial of steroid therapy ( Prednisone 80mg daily x 3 days) given on 09/17/16 to see if we will achieve any significant improvement in neuro symptoms. No obvious improvement noted with 3 days of Prednisone treatment. - Per neuro recommendation increased Amantadine to 100mg bid on 09/20/16 - Increase amantadine gradually up to a goal dose of 400 mg daily. 100 mg twice a day for one week, then 100 mg in the morning and 200 mg in the evening for one week ( 100/200 started on 09/24) , and then 200 mg twice daily thereafter. -Post LP and CTA brain on 09/16/16. -findings and plan were discussed with neuro consult (Dr. Jara) by prior hospitalist on 09/17/16 . Neuro reviewed these findings with [facility]y. # Acute fevers, not present on admission. ongoing - Appreciate ID consult. Will followup with recs - Per ID consult, fevers thought to be likely due to central etiology. restarted zosyn 09/25 due to fever spike and worsening leukocytosis for suspected UTI - Completed course of Ertapenem. - MRCP did not show further evidence of Pancreatitis or Cholecystitis. - Blood cultures negative. - Vasculitis workup and LP as noted above # Acute dysphagia. Likely due to anoxic brain injury noted above. Present on admission. - Per earlier notes: "After Family meeting on 09/13, has requested MBS attempted again and would like to be present." - Pt failed MBS on 09/15 due to inability to fully follow instructions. - Continue with Ngtube feed -palliative care discussed goals of care with family members ,they opted PEG tube. Consulted gastroenterology for PEG tube placement. Initially scheduled for 09/25 but canceled due to new sepsis -rescheduled for Friday 09/29,npo thursday [place] -patient getting bolus feeds instead of continuous in preparation of discharge . Family plan to feed him boluses whe they take him home . # Mild acute hypernatremia, not present on admission, active. - Appreciate nephrology consult. Will followup with recs -Currently on DDAVP mcg IV bid .switched to nasal DDVAP 20mch hs per nephrology. Plan to continue upon discharge. Plan to follow with nephrology in 3 weeks # Acute Kidney Injury requiring dialysis, present on admission. Resolved - Cr on admission at 3.52 and increasing after admission. Unknown history of kidney injury. - Hemodialysis done daily starting 08/25/16 and then stopped. No longer on hemodialysis and catheter removed - treated with Free water flushes 300 ml q 4 hr. - Continue DDAVP for now # Acute Cholecystitis, present on admission. Resolved - Acute cholecystitis based on HIDA scan and abdominal CT. - Gen. surgery was consulted, Dr. Dash as intial thought of CCK. Upon follow up MRCP was negative for Acute Pancreatitis and Chronic cholecystitis. - Resolved cholelithiasis w/o choledocholithiasis. - TPN stopped on 09/06/16 as this was thought to be worsening cholecystitis and pancreatitis. # Acute Rhabdomyolysis, present on admission, [place] [id number]. Likely secondary to being in one position for 9 hours. # Acute stage II ulcers in the buttock areas, present on admission. - Continue with wound care and supportive care # History of alcohol dependence - No need to institute CIWA protocol at this time # History of drug dependence - Known user of cocaine and ice - Per family, last known use is around 5 months ago. Dispo: pending improvement of new sepsis and PEG tube placement. Patient likely to go home eventually GI Prophylaxis: Not indicated (Patient extubated) VTE Prophylaxis: Sub-Q Heparin (Unfractionated), SCDs VTE Mechanical Devices: Intermittant Pneumatic CD Resuscitation Status: CPR: Attempt Resuscitation ( is ADM) Catalino Salvador MD Sep 28, 2016 14:56 Dispo: pending improvement of new sepsis and PEG tube placement. Patient likely to go home eventually GI Prophylaxis: Not indicated (Patient extubated) VTE Prophylaxis: Sub-Q Heparin (Unfractionated), SCDs VTE Mechanical Devices: Intermittant Pneumatic CD Resuscitation Status: CPR: Attempt Resuscitation ( is ADM) Catalino Salvador MD Sep 28, 2016 14:56
[2016-09-28 17:56] VITALS: BP 122/82; PULSE 107; RESP 18; O2SAT 97
--- NOTE | 2016-09-28 18:01 | NUR ---
Social Work: Continued Discharge Planning/Multidisciplinary Rounds D: EMR reviewed. Pt is on day 36 of hospitalization. Pt discussed in multidisciplinary rounds. PEG tube placed. Per MD, family will take pt home and provide nutrition - family declines any infusion services for nutrition per MD. Family states they will be able to help pt heal with homemade food. MD states that pt is likely to discharge home with family on 10/01. MD stated there are no other SW needs at this time. No MD orders placed. Per MD, Palliative signed off and MD counseled pt's family on risks of nutrition methods. SW will continue to follow. A: Pt who will need / care and will discharge with PEG tube. P: Pt anticipated to discharge 10/01 with PEG tube - per MD, family declines medical nutrition/infusion for PEG tube. MD stated no other SW needs at this time. No MD orders received. SW will continue to follow. JEFF Marquez
[2016-09-28] MEDS: Desmopressin 100 mCg/mL 5 mL Nasal Spray NASAL SCH (21:11)
[2016-09-28 21:12] VITALS: BP 112/81; PULSE 103; RESP 18; O2SAT 98
--- NOTE | 2016-09-28 22:00 | NUR ---
Spouse concern bump Spouse c/o feeling bump to back of head upon assess felt scalp protrusion posterior both sides text MD made aware and got second opinion/assessment from central office repairer supervisor who agreed R >L and likely attributed to neck muscle atrophy will pass on to have PT and WOC to assess
[2016-09-29] MEDS: Piperacillin-Tazo 3.375 Gm Inj 3.375 GM in Dextrose 5% Minibag Plus 50 ML IV SCH ×2 (04:31→17:02)
[2016-09-29] MEDS ORDERED: 0.9% Sodium Chloride 100 ML ONE (04:34)
[2016-09-29 06:19] VITALS: BP 125/79; PULSE 100; RESP 18; O2SAT 97
[2016-09-29] MEDS: AMANTADINE 10 MG/ML TUBE SCH ×2 (08:30→21:16)
[2016-09-29 10:24] LABS: BASOPHILS % (AUTO) 0.4 % (0-3); EOSINOPHILS % (AUTO) 2.2 % (0-5); MONOCYTES % (AUTO) 6.4 % (4-12); Mean Corpuscular Hemoglobin 29.4 pg (27.0-35.0); Mean Corpuscular Volume 91.1 fL (81-100); NEUTROPHILS % (AUTO) 67.5 % (40-74); Platelet Count 147 bil/L (150-400)
[2016-09-29 10:36] LABS: INR 1.05 ratio
[2016-09-29 10:58] LABS: Magnesium 2.2 mg/dL (1.6-2.6); Phosphorus 4.2 mg/dL (2.5-4.9)
[2016-09-29 11:30] VITALS: BP 119/77; PULSE 103; RESP 20; O2SAT 97
--- NOTE | 2016-09-29 13:21 | PCM.PNMED ---
Subjective Date of Service Sep 29, 2016 Subjective Continues to have fever and tachycardia. But fever only low-grade. Exam Vital Signs Vital Sign - Last Date Time Temp Pulse Resp B/P Pulse Ox O2 Delivery O2 Flow Rate FiO2 09/29/16 11:30 37.6 103 20 119/77 97 Room Air Intake and Output 09/28/16 09/28/16 09/29/16 Cumulative From/Thru 15:00 23:00 07:00 08/23/16 05:20 - 09/29/16 06:20 Intake Total 1337 ml 917 ml 782812 ml Output Total 600 ml 100 ml 1000 ml 414749 ml Balance -600 ml 1237 ml -83 ml 76101 ml Intake Oral 560 ml IV Total 137 ml 117 ml 27710 ml Tube Feeding 400 ml 400 ml 79686 ml TPN/PPN 1526 ml Tube Irrigant 800 ml 400 ml 22904 ml Output Urine Total 600 ml 100 ml 1000 ml 57028 ml Stool Total 90908 ml Gastric Drainage Total 1070 ml Ultrafiltrate 4700 ml Other 330 ml # Voids 14 # Bowel Movements 02 10 20 Exam General: mild respiratory Distress,NG tube in place Head: Normal Eyes: Scleral Anicteric Nose: Mucous Membr Moist/Woody Mouth: Mucous Membr Moist/Woody Neck: Supple Chest & Lungs: ronchi on lower chest bilaterally Cardiovascular: Regular Rate/Rhythm Pulses: NL DP, PT Extremities: No cyanosis/clubbing/edema bilat stage 1 sacral decub,no evidence of infection Neurological: alert ,eyes open, non verbal mostly . following commands intermittently . Very limited movement of all extremities noted.power 2/5 all over IVs and Medications Medications Reviewed: Medications were reviewed in detail Lab and Diagnostics Result Diagram: 09/29/16 1010 09/29/16 1010 Microbiology Blood cultures pending MRSA swab pending X-Rays, CTs and MRIs CT BRAIN WITHOUT CONTRAST IMPRESSION: No acute disease. Dictated by: Hemant Gallegos M.D. on 08/23/2016 CT BRAIN WITHOUT CONTRAST IMPRESSION: 1. Diffuse bilateral hypodensity of the globus pallidus. This is a new finding when compared with the study dated 08/23/16. Differential considerations include anoxic injury, carbon monoxide neurotoxicity, excessive alcohol ingestion, and methanol or ethylene glycol ingestion. Dictated by: Dinora Kang M.D. 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 Dictated by: Jacob Mosqueda M.D. on 08/28/2016 MRI STROKE PROTOCOL IMPRESSION: BRAIN MRI: Continued worsening of ischemic injury to the brain parenchyma, symmetric bilaterally, and best seen in the deep white matter of the lentiform nuclei, the wolfe radiata, and the centrum semiovale. No associated hemorrhage. BRAIN MR ANGIOGRAM: No acute disease to the intracranial arterial vasculature. NECK MR ANGIOGRAM: Normal cervical MR angiogram. The estimate of stenosis included in the report of the imaging study was calculated using the NASCET method Dictated by: Jack Padilla M.D. on 09/15/2016 CT CHEST WITHOUT CONTRAST IMPRESSION: Small basal left pleural effusion is unchanged, with associated left lower lobe compressive atelectasis. Superimposed pneumonia therefore cannot be excluded. Dictated by: Binh Ochoa M.D. on 09/07/2016 at 13:47 US RENAL SONOGRAM IMPRESSION: No hydronephrosis. Right renal cyst. Dictated by: Shobha Vale M.D. on 08/24/2016 US ABDOMEN, LIMITED IMPRESSION: Cholelithiasis, without justin gallbladder wall thickening to suggest acute cholecystitis at this time. Dictated by: Binh Ochoa M.D. on 09/07/2016 MR ABDOMEN MRCP IMPRESSION: 1. Markedly limited study due to motion artifact. 2. Cholelithiasis without evidence of cholecystitis. 3. No biliary ductal dilatation or definite choledocholithiasis. 4. No peripancreatic edema to suggest pancreatitis an MRI. No discrete pseudocyst identified. Dictated by: Bruce Valadez M.D. on 09/08/2016 at 17:47 US ABDOMEN IMPRESSION: 1. Cholelithiasis. 2. Mild gallbladder wall thickening. Acute cholecystitis cannot be excluded. 3. Echogenic liver. Finding typically represents fatty infiltration; however, finding is nonspecific and correlation with clinical and laboratory findings is recommended to exclude other etiologies including hepatic cirrhosis. 4. Slightly echogenic right kidney suspicious for developing medical renal disease. Please correlate with clinical and laboratory data. Dictated by: Swathi Jimenes MD, PhD on 08/29/2016 US ABDOMEN, LIMITED IMPRESSION: Cholelithiasis, without justin gallbladder wall thickening to suggest acute cholecystitis at this time. Dictated by: Binh Ochoa M.D. on 09/07/2016 X-RAY CHEST ONE VIEW, PORTABLE IMPRESSION: No acute disease is seen a semiupright portable chest. Tubes are considered appropriate radiographically. Dictated by: Hemant Gallegos M.D. on 08/23/2016 X-RAY CHEST ONE VIEW, PORTABLE IMPRESSION: Support lines as above. Otherwise, no acute pulmonary process. Dictated by: Shobha Vale M.D. on 08/24/2016 X-RAY CHEST ONE VIEW, PORTABLE IMPRESSION: No acute cardiopulmonary disease process. Dictated by: Swathi Jimenes MD, PhD on 08/25/2016 X-RAY CHEST ONE VIEW, PORTABLE IMPRESSION: 1. Left basilar atelectasis. Otherwise lungs are clear. 2. ET and enteric tubes. Dictated by: Jacob Mosqueda M.D. on 08/27/2016 at 9:53 X-RAY CHEST ONE VIEW, PORTABLE IMPRESSION: Stable left basilar atelectasis and support lines. Dictated by: Jacob Mosqueda M.D. on 08/28/2016 at 7:54 Date of Service: 09/15/16 1757 PROCEDURE: MRI STROKE PROTOCOL ([id number]) IMPRESSION: BRAIN MRI: Continued worsening of ischemic injury to the brain parenchyma, symmetric bilaterally, and best seen in the deep white matter of the lentiform nuclei, the wolfe radiata, and the centrum semiovale. No associated hemorrhage. BRAIN MR ANGIOGRAM: No acute disease to the intracranial arterial vasculature. NECK MR ANGIOGRAM: Normal cervical MR angiogram. The estimate of stenosis included in the report of the imaging study was calculated using the NASCET method Dictated by: Jack Padilla M.D. on 09/15/2016 at 21:36 Approved by: Jack Padilla M.D. on 09/15/2016 at 21:42 Additional Diagnostics ABG DateTimeAnalyzed 10:20:00 -_ pH ____7.354 - 7.350 7.450 pCO2 ___31.5__ -mmHg 35.0 45.0 pO2 160 -mmHg 69.0 116 HCO3- ___17.1__ -mmol/L 22.0 26.0 FIO2 ___45.0__ -% PRVC 20 - PEEP ____8.0__ -cmH2O Assessment & Plan 41 year old male with known history of alcohol and drug use presented unresponsive after being found with vomit around him, sedated and intubated for acute hypoxemic respiratory failure secondary to aspiration for 5 days and extubated on hospital day 6 following successful spontaneous breathing trial. # suspected new episode of sepsis due to complicated UTI ,onset 09/25 -on 09/25 Temp 39.2, which is significantly higher than his temp trend,new tachycardia HR in 111, worsening leukocytosis from 13 to 23 -Unclear source but likely due to UTI -Blood culture 09/25 no growth ,cxr persistent LLL infiltrate, urinalysis pyuria, ucx mixed marcia.no decub ulcer ,PICC removed 09/26 ( Has been in place for 1 month and was not flushing or drawing blood well anyways per RN ) - started empiric antibiotics zosyn to for aspiration pneumonia and UTI .fever and wbc improved .will consider discontinuing antibiotics on 10/01 (plan to treat for 7 days) . -will consider MRCP or CT abdomen given recent cholecystitis if no improvement.RUQ soft on exam for now # Acute anoxic Brain Injury, present on admission. Ongoing - Strongly suspected anoxic brain injury given presenting history - Secondary to aspiration and intoxication. Patient had large volume of vomit suctioned out in the ED. initial toxicology screen done only for salycilate, alcohol and acetaminophen which is unremarkable - Initial EEG showed evidence of slowing but no other abnormalities to suggest that the patient is having clinical seizures causing his symptoms. - Intubated on 08/23/16, Extubated on 08/28/16. - Repeat MRI of brain on 09/15/16 showing: "Continued worsening of ischemic injury to the brain parenchyma, symmetric bilaterally" - Anoxic brain injury and its progression is most likely diagnosis at this time. However, given no obvious source of infection and remote likelihood of vasculitis, per discussion with Dr. Jara a trial of steroid therapy ( Prednisone 80mg daily x 3 days) given on 09/17/16 to see if we will achieve any significant improvement in neuro symptoms. No obvious improvement noted with 3 days of Prednisone treatment. - Per neuro recommendation increased Amantadine to 100mg bid on 09/20/16 - Increase amantadine gradually up to a goal dose of 400 mg daily. 100 mg twice a day for one week, then 100 mg in the morning and 200 mg in the evening for one week ( 100/200 started on 09/24) , and then 200 mg twice daily thereafter. -Post LP and CTA brain on 09/16/16. -findings and plan were discussed with neuro consult (Dr. Jara) by prior hospitalist on 09/17/16 . Neuro reviewed these findings with [facility] neurology. # Acute fevers, not present on admission. ongoing - Appreciate ID consult. Will followup with recs - Per ID consult, fevers thought to be likely due to central etiology. restarted zosyn 09/25 due to fever spike and worsening leukocytosis for suspected UTI - Completed course of Ertapenem. - MRCP did not show further evidence of Pancreatitis or Cholecystitis. - Blood cultures negative. - Vasculitis workup and LP as noted above -- Zosyn was given for 7 days earlier in the hospital course but was stopped per ID recommendation.now restarted on 09/25 # Acute dysphagia. Likely due to anoxic brain injury noted above. Present on admission. - Per earlier notes: "After Family meeting on 09/13, has requested MBS attempted again and would like to be present." - Pt failed MBS on 09/15 due to inability to fully follow instructions. - Continue with Ngtube feed -palliative care discussed goals of care with family members ,they opted PEG tube. Consulted gastroenterology for PEG tube placement. Initially scheduled for 09/25 but canceled due to new sepsis -rescheduled for Friday 09/29,npo thursday [place] -patient getting bolus feeds instead of continuous in preparation of discharge . Family plan to feed him boluses whe they take him home . # Mild acute hypernatremia, not present on admission, active. - Appreciate nephrology consult. Will followup with recs -was on DDAVP mcg IV bid .switched to nasal DDVAP 20mch hs per nephrology. Plan to continue upon discharge. Plan to follow with nephrology in 3 weeks . May reconsult nephrology for final decision if patient stays for 10 more days for some reason # Acute Kidney Injury requiring dialysis, present on admission. Resolved - Cr on admission at 3.52 and increasing after admission. Unknown history of kidney injury. - Hemodialysis done daily starting 08/25/16 and then stopped. No longer on hemodialysis and catheter removed - initially treated with Free water flushes 300 ml q 4 hr. - Continue DDAVP for now # Acute Cholecystitis, present on admission. Resolved - Acute cholecystitis based on HIDA scan and abdominal CT. - Gen. surgery was consulted, Dr. Dash as intial thought of CCK. Upon follow up MRCP was negative for Acute Pancreatitis and Chronic cholecystitis. - Resolved cholelithiasis w/o choledocholithiasis. - TPN stopped on 09/06/16 as this was thought to be worsening cholecystitis and pancreatitis. # Acute Rhabdomyolysis, present on admission, [place] [id number]. Likely secondary to being in one position for 9 hours. # Acute stage II ulcers in the buttock areas, present on admission. - Continue with wound care and supportive care # History of alcohol dependence - No need to institute CIWA protocol at this time # History of drug dependence - Known user of cocaine and ice - Per family, last known use is around 5 months ago. Dispo: pending improvement of new sepsis and PEG tube placement. Patient likely to go home eventually GI Prophylaxis: Not indicated (Patient extubated) VTE Prophylaxis: Sub-Q Heparin (Unfractionated), SCDs VTE Mechanical Devices: Intermittant Pneumatic CD Resuscitation Status: CPR: Attempt Resuscitation ( is ADM) Catalino Salvador MD Sep 29, 2016 13:21
--- NOTE | 2016-09-29 16:10 | NUR ---
NUTRITION FOLLOW UP: ASSESS: 41 YO male with anoxic brain injury, continues to be alert but non-verbal. JUWAN has resolved. Enteral feeding schedule changed to bolus feeds on 09/23 per MD request as pt will likely not be able to have a pump available to him at home for tube feeds. Pt scheduled for PEG tube placement today 09/29. MD notes indicate pt with low grade fever suspected sepsis due to complicated UTI, RN notes pt with pneumonia on chest x-ray 09/25, discussed with RN, RN reports lung sound are okay today. ? Asp. pneumonia in MD notes. Call received from forestry workers Daisy re family creating their own tube feeding using Pedialyte or other low cost formula. Per RD/Palliative care pt planning on obtaining tube feeding product (likely Ensure) through food bank or [facility] liquid meal replacement program. PMHx: ETOH abuse. DIET: NPO. NUTRITION SUPPORT: Jevity 1.5~bolus of 400 mL 4 times per day, with 25 mL H2O flush before and after each bolus. Also 400 ML H2O bolus 4 times per day. TF and H2O bolus providing 2400 kcals, 102 g protein and 3016 ml free H20 per day. Fluids provided from flush dose and bolus dose will be the same volume as nephrology has ordered (300 mL every 4 hours). LABS: Reviewed. Glu 111, Alb 3.5, ALT 58 MEDICATIONS: Reviewed. GI: BM x 1 (09/29). SKIN: Wounds healed per wound care note. ANTHROPOMETRICS: Current Wt: 87.3 kg. Admit wt: 95.1 kg. IBW: 72.7 kg ESTIMATED NEEDS: Calories: 0310-8844 kcal/day (25-30 kcal/kg BW) Protein: 85-110 g protein (1.2-1.5 g/kg BW IBW) Fluid: Approx. ~1377-5989 mL (25-35 mL/kg BW) but fluids per nephrology at this time. NUTRITION DIAGNOSIS: 1) Inadequate oral intake related to inability to consume sufficient energy due to cognition, as evidenced by NPO status - IMPROVED . Pt currently NPO, awaiting PEG placement. INTERVENTION: 1) Spoke with RN at length re bolus tube feeding schedule and teaching family re how to do bolus tube feedings. (Family to use Syringe? vs able to afford pump?, unclear at this time.) Alerted RN as to where to find tube feeding orders (paper form in chart/RD computer note), RN reports no confusion with current bolus regimen, will pass along to oncoming RN's as to mitigate any further confusion re bolus schedule once PEG tube placed and tube feeding resumed. 2) Discussed home tube feeding options with Revenue Settlements Administrator. Pt/Family desires tube feeding recommendations with low cost tube feeding product. Ensure Plus readily available at [facility] and through Liquid Meal replacement program at [facility], provides 355 kcal,13g protein. Per Susan at [facility], pt would not qualify for program as age <60. Pt would require 7 cans of Ensure Plus (8oz/can) per day to meet needs at 2485kcal,91g protein. Schedule example: 2 cans Ensure Plus at 0700,1100,1500 and 1 can at 1900. H20 bolus of 450ml 4x/d (0900,1300,1700,2100) with H20 flush of 25ml before/after each feeding to provide 3260ml fluid. Nephrology to clarify fluid need recommendations prior to discharge. 3) Another low cost option would be joining no-cost [employer] which has a Tube feeding equipment/Supply exchange program for tube feeding product/supplies with pt paying for shipping of product only. http://[employer]org or contact: [phone]. Pt would not be guaranteed a specific tube feeding product. In that case would need to be sure pt was meeting minimum kcal/protein needs with product at 2200kcal, 85g protein. MONITOR/EVALUATE: Enteral feeding changes / tolerance, labs, weights, nutrition status. Follow per moderate nutrition risk guidelines.
[2016-09-29 16:31] VITALS: BP 115/78; PULSE 110; RESP 16; O2SAT 97
--- NOTE | 2016-09-29 17:34 | NUR ---
Social Work Note: Continued Discharge Planning Data& Assessment: Per MD in multidisciplinary rounds, pt is having PEG tube placed this afternoon and may be able to discharge home with family support in the next 2-3 days. Pt was noticeably upset and crying in pt room earlier this afternoon. COATER SMOKING PIPE met with pt at bedside with the butadiene converter helper to check in and assess for any needs. Pt expressed sadness over realization of pt new baseline and is afraid of her children's emotional response to pt new baseline. COATER SMOKING PIPE provided psychosocial support and encouragement. Pt only request is for a list of supplies and equipment that pt will require at discharge. Pt requested that the options provided to her are the cheapest options in the community as pt is uninsured and pt does not work. COATER SMOKING PIPE spoke with PT who will come and provide teaching to pt and family focusing on safe transfers and re-positioning pending MD order. COATER SMOKING PIPE discussed with MD and MD agrees to placing a new PT order. COATER SMOKING PIPE spoke with dba who previously treated pt earlier in this hospitalization regarding any recommendations for pt at time of discharge to prevent wounds at home as pt is max assist and non ambulatory. Per dba, a EHOB mattress would be very beneficial for pt in prevention of wounds and skin breakdown and realistic for pt family in terms of expense compared to other mattress options. COATER SMOKING PIPE to gather estimates for EHOB mattresses and buying options for pt . dba to also see pt for further skin care teaching. COATER SMOKING PIPE requested MD place a new wound care order for this family teaching as well. COATER SMOKING PIPE spoke with Dietary/geological drafter who will meet with pt prior to discharge for teaching surround calorie counting and nutrition pt can have that can be obtained in the community at lower cost than infusion formulas. Per dietary, pt can obtain ensure or Glucerna at local drug and grocery stores and sometimes obtain bottles at local food [employer]. COATER SMOKING PIPE to follow up with pt to ensure she understands where to obtain the bottles (see dietary note). RN to also provide teaching to pt during basic care in pt room. Pt also expressed frustration that pt sister who will be another primary caregiver for pt once at home, still believes pt will improve. Pt requested that MD speak to pt sister and pt together to explain pt prognosis and chcf care needs prior to D/C so that pt sister has a better understanding. MD and RN notified. Pt denies any other needs at this time. COATER SMOKING PIPE to follow up with and check in with pt regarding D/C planning. Plan: Anticipated discharge home with family support when medically ready. PT, disbursing officer, dietary and RN to meet with pt and pt family for teaching. Pt denies any other needs at this time. COATER SMOKING PIPE to follow up with and check in with pt regarding D/C planning. JEFF Swan
[2016-09-29 17:45] VITALS: BP 111/71; PULSE 101; RESP 18; O2SAT 97
--- NOTE | 2016-09-29 19:36 | NUR ---
PEG tube update Pt has been receiving Q2 care w/ turns and changes of linens as needed. Problem arose when pt went to endo for peg placement. Pt did not have this procedure r/t anesthesia concerns. Plan is now for palliative to return to consult the family to discuss new plan.
[2016-09-29 20:30] VITALS: BP 129/83; PULSE 112; RESP 18; O2SAT 97
[2016-09-29] MEDS: Desmopressin 100 mCg/mL 5 mL Nasal Spray NASAL SCH (21:06)
[2016-09-30] MEDS: Piperacillin-Tazo 3.375 Gm Inj 3.375 GM in Dextrose 5% Minibag Plus 50 ML IV SCH ×2 (01:08→08:34)
[2016-09-30 01:21] VITALS: BP 126/84; PULSE 106; RESP 16; O2SAT 97
[2016-09-30] MEDS: Acetaminophen 32.5 mg/mL 20 mL Liquid PO PRN (05:22)
[2016-09-30 05:26] VITALS: BP 120/81; PULSE 116; RESP 16; O2SAT 97
--- NOTE | 2016-09-30 05:49 | NUR ---
Tachycardic Pt. continues to be tachycardic. Also spiked a fever this AM which was given APAP as per order. All other VSS. No adverse reactions to HS medications given or IV ABO. Placement/discharge continues to be an issue with this Pt.
[2016-09-30] MEDS: AMANTADINE 10 MG/ML TUBE SCH ×2 (08:33→21:22)
[2016-09-30 08:40] LABS: BASOPHILS % (AUTO) 0.4 % (0-3); EOSINOPHILS % (AUTO) 1.1 % (0-5); MONOCYTES % (AUTO) 5.2 % (4-12); Mean Corpuscular Hemoglobin 29.5 pg (27.0-35.0); Mean Corpuscular Volume 91.1 fL (81-100); NEUTROPHILS % (AUTO) 75.1 % (40-74); Platelet Count 155 bil/L (150-400)
--- NOTE | 2016-09-30 12:56 | PCM.PNMED ---
Subjective Date of Service Sep 30, 2016 Subjective Patient continues to fever and worsening leukocytosis. Unclear source of infection. PEG tube placement canceled by anesthesia due to patient's condition. Exam Vital Signs Vital Sign - Last Date Time Temp Pulse Resp B/P Pulse Ox O2 Delivery O2 Flow Rate FiO2 09/30/16 08:46 37.8 09/30/16 07:58 Supplement Oxygen 09/30/16 05:26 116 16 120/81 97 Intake and Output 09/29/16 09/29/16 09/30/16 Cumulative From/Thru 15:00 23:00 07:00 08/23/16 05:20 - 09/30/16 05:38 Intake Total 187 ml 850 ml 174756 ml Output Total 500 ml 1650 ml 928511 ml Balance -313 ml -800 ml 20367 ml Intake Oral 560 ml IV Total 187 ml 50 ml 57428 ml Tube Feeding 400 ml 86565 ml TPN/PPN 1526 ml Tube Irrigant 400 ml 90317 ml Output Urine Total 500 ml 1650 ml 22786 ml Stool Total 81831 ml Gastric Drainage Total 1070 ml Ultrafiltrate 4700 ml Other 330 ml # Voids 14 # Bowel Movements 21 Exam General: mild respiratory Distress,NG tube in place Head: Normal Eyes: Scleral Anicteric Nose: Mucous Membr Moist/[place] Mouth: Mucous Membr Moist/[place] Neck: Supple Chest & Lungs: ronchi on lower chest bilaterally Cardiovascular: Regular Rate/Rhythm Pulses: NL DP, PT Extremities: No cyanosis/clubbing/edema bilat stage 1 sacral decub,no evidence of infection Neurological: alert ,eyes open, non verbal mostly . Does not follow command . Very limited movement of all extremities noted.power 1/5 all over IVs and Medications Medications Reviewed: Medications were reviewed in detail Lab and Diagnostics Result Diagram: 09/30/1682409/30/16824 Microbiology Blood cultures pending MRSA swab pending X-Rays, CTs and MRIs CT BRAIN WITHOUT CONTRAST IMPRESSION: No acute disease. Dictated by: Hemant Gallegos M.D. on 08/23/2016 CT BRAIN WITHOUT CONTRAST IMPRESSION: 1. Diffuse bilateral hypodensity of the globus pallidus. This is a new finding when compared with the study dated 08/23/16. Differential considerations include anoxic injury, carbon monoxide neurotoxicity, excessive alcohol ingestion, and methanol or ethylene glycol ingestion. Dictated by: Dinora Kang M.D. 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 Dictated by: Jacob Mosqueda M.D. on 08/28/2016 MRI STROKE PROTOCOL IMPRESSION: BRAIN MRI: Continued worsening of ischemic injury to the brain parenchyma, symmetric bilaterally, and best seen in the deep white matter of the lentiform nuclei, the wolfe radiata, and the centrum semiovale. No associated hemorrhage. BRAIN MR ANGIOGRAM: No acute disease to the intracranial arterial vasculature. NECK MR ANGIOGRAM: Normal cervical MR angiogram. The estimate of stenosis included in the report of the imaging study was calculated using the NASCET method Dictated by: Jack Padilla M.D. on 09/15/2016 CT CHEST WITHOUT CONTRAST IMPRESSION: Small basal left pleural effusion is unchanged, with associated left lower lobe compressive atelectasis. Superimposed pneumonia therefore cannot be excluded. Dictated by: Binh Ochoa M.D. on 09/07/2016 at 13:47 US RENAL SONOGRAM IMPRESSION: No hydronephrosis. Right renal cyst. Dictated by: Shobha Vale M.D. on 08/24/2016 US ABDOMEN, LIMITED IMPRESSION: Cholelithiasis, without justin gallbladder wall thickening to suggest acute cholecystitis at this time. Dictated by: Binh Ochoa M.D. on 09/07/2016 MR ABDOMEN MRCP IMPRESSION: 1. Markedly limited study due to motion artifact. 2. Cholelithiasis without evidence of cholecystitis. 3. No biliary ductal dilatation or definite choledocholithiasis. 4. No peripancreatic edema to suggest pancreatitis an MRI. No discrete pseudocyst identified. Dictated by: Bruce Valadez M.D. on 09/08/2016 at 17:47 US ABDOMEN IMPRESSION: 1. Cholelithiasis. 2. Mild gallbladder wall thickening. Acute cholecystitis cannot be excluded. 3. Echogenic liver. Finding typically represents fatty infiltration; however, finding is nonspecific and correlation with clinical and laboratory findings is recommended to exclude other etiologies including hepatic cirrhosis. 4. Slightly echogenic right kidney suspicious for developing medical renal disease. Please correlate with clinical and laboratory data. Dictated by: Swathi Jimenes MD, PhD on 08/29/2016 US ABDOMEN, LIMITED IMPRESSION: Cholelithiasis, without justin gallbladder wall thickening to suggest acute cholecystitis at this time. Dictated by: Binh Ochoa M.D. on 09/07/2016 X-RAY CHEST ONE VIEW, PORTABLE IMPRESSION: No acute disease is seen a semiupright portable chest. Tubes are considered appropriate radiographically. Dictated by: Hemant Gallegos M.D. on 08/23/2016 X-RAY CHEST ONE VIEW, PORTABLE IMPRESSION: Support lines as above. Otherwise, no acute pulmonary process. Dictated by: Shobha Vale M.D. on 08/24/2016 X-RAY CHEST ONE VIEW, PORTABLE IMPRESSION: No acute cardiopulmonary disease process. Dictated by: Swathi Jimenes MD, PhD on 08/25/2016 X-RAY CHEST ONE VIEW, PORTABLE IMPRESSION: 1. Left basilar atelectasis. Otherwise lungs are clear. 2. ET and enteric tubes. Dictated by: Jacob Mosqueda M.D. on 08/27/2016 at 9:53 X-RAY CHEST ONE VIEW, PORTABLE IMPRESSION: Stable left basilar atelectasis and support lines. Dictated by: Jacob Mosqueda M.D. on 08/28/2016 at 7:54 Date of Service: 09/15/16 1757 PROCEDURE: MRI STROKE PROTOCOL ([id number]) IMPRESSION: BRAIN MRI: Continued worsening of ischemic injury to the brain parenchyma, symmetric bilaterally, and best seen in the deep white matter of the lentiform nuclei, the wolfe radiata, and the centrum semiovale. No associated hemorrhage. BRAIN MR ANGIOGRAM: No acute disease to the intracranial arterial vasculature. NECK MR ANGIOGRAM: Normal cervical MR angiogram. The estimate of stenosis included in the report of the imaging study was calculated using the NASCET method Dictated by: Jack Padilla M.D. on 09/15/2016 at 21:36 Approved by: Jack Padilla M.D. on 09/15/2016 at 21:42 Additional Diagnostics ABG DateTimeAnalyzed 10:20:00 -_ pH ____7.354 - 7.350 7.450 pCO2 ___31.5__ -mmHg 35.0 45.0 pO2 160 -mmHg 69.0 116 HCO3- ___17.1__ -mmol/L 22.0 26.0 FIO2 ___45.0__ -% PRVC 20 - PEEP ____8.0__ -cmH2O Assessment & Plan 41 year old male with known history of alcohol and drug use presented unresponsive after being found with vomit around him, sedated and intubated for acute hypoxemic respiratory failure secondary to aspiration for 5 days and extubated on hospital day 6 following successful spontaneous breathing trial. # suspected new episode of sepsis due to complicated UTI ,onset 09/25 -on 09/25 Temp 39.2, which is significantly higher than his temp trend,new tachycardia HR in 111, worsening leukocytosis from 13 to 23 -Unclear source but likely due to UTI -Blood culture 09/25 no growth ,cxr persistent LLL infiltrate, urinalysis pyuria, ucx mixed marcia.no decub ulcer ,PICC removed 09/26 ( Has been in place for 1 month and was not flushing or drawing blood well anyways per RN ) - started empiric antibiotics zosyn to for aspiration pneumonia and UTI .fever and wbc initially improved but now worsened . will consider CT chest/abd/pelvis after discussing with ID ,will consider adding antifungal after d/w ID .will reconsult ID Dr Lopez . # Acute anoxic Brain Injury, present on admission. Ongoing - Strongly suspected anoxic brain injury given presenting history - Secondary to aspiration and intoxication. Patient had large volume of vomit suctioned out in the ED. initial toxicology screen done only for salycilate, alcohol and acetaminophen which is unremarkable - Initial EEG showed evidence of slowing but no other abnormalities to suggest that the patient is having clinical seizures causing his symptoms. - Intubated on 08/23/16, Extubated on 08/28/16. - Repeat MRI of brain on 09/15/16 showing: "Continued worsening of ischemic injury to the brain parenchyma, symmetric bilaterally" - Anoxic brain injury and its progression is most likely diagnosis at this time. However, given no obvious source of infection and remote likelihood of vasculitis, per discussion with Dr. Jara a trial of steroid therapy ( Prednisone 80mg daily x 3 days) given on 09/17/16 to see if we will achieve any significant improvement in neuro symptoms. No obvious improvement noted with 3 days of Prednisone treatment. - Per neuro recommendation increased Amantadine to 100mg bid on 09/20/16 - Increase amantadine gradually up to a goal dose of 400 mg daily. 100 mg twice a day for one week, then 100 mg in the morning and 200 mg in the evening for one week ( 100/200 started on 09/24) , and then 200 mg twice daily thereafter. -Post LP and CTA brain on 09/16/16. -findings and plan were discussed with neuro consult (Dr. Jara) by prior hospitalist on 09/17/16 . Neuro reviewed these findings with [facility] neurology. # Acute fevers, not present on admission. ongoing - Per ID consult, fevers thought to be likely due to central etiology. restarted zosyn 09/25 due to fever spike and worsening leukocytosis for suspected UTI - Completed course of Ertapenem. - MRCP did not show further evidence of Pancreatitis or Cholecystitis. - Blood cultures negative. - Vasculitis workup and LP as noted above -- Zosyn was given for 7 days earlier in the hospital course but was stopped per ID recommendation.now restarted on 09/25 # Acute dysphagia. Likely due to anoxic brain injury noted above. Present on admission. - Per earlier notes: "After Family meeting on 09/13, has requested MBS attempted again and would like to be present." - Pt failed MBS on 09/15 due to inability to fully follow instructions. - Continue with Ngtube feed -palliative care discussed goals of care with family members ,they opted PEG tube. Consulted gastroenterology for PEG tube placement. Initially scheduled for 09/25 but canceled due to new sepsis -PEG rescheduled for 09/29 but canceled per anesthesia. Anesthesiologist discussed with family risk of patient remaining intubated and eventual tracheostomy if unable to be extubated. Family would prefer to avoid any such risk of intubation. -patient getting bolus feeds instead of continuous in preparation of discharge . Family plan to feed him boluses when they take him home . # Mild acute hypernatremia, not present on admission, active. - Appreciate nephrology consult. Will followup with recs -was on DDAVP mcg IV bid .switched to nasal DDVAP 20mch hs per nephrology. Plan to continue upon discharge. Plan to follow with nephrology in 3 weeks . May reconsult nephrology for final decision if patient stays for 10 more days for some reason # Acute Kidney Injury requiring dialysis, present on admission. Resolved - Cr on admission at 3.52 and increasing after admission. Unknown history of kidney injury. - Hemodialysis done daily starting 08/25/16 and then stopped. No longer on hemodialysis and catheter removed - initially treated with Free water flushes 300 ml q 4 hr. - Continue DDAVP for now # Acute Cholecystitis, present on admission. Resolved - Acute cholecystitis based on HIDA scan and abdominal CT. - Gen. surgery was consulted, Dr. Dash as intial thought of CCK. Upon follow up MRCP was negative for Acute Pancreatitis and Chronic cholecystitis. - Resolved cholelithiasis w/o choledocholithiasis. - TPN stopped on 09/06/16 as this was thought to be worsening cholecystitis and pancreatitis. # Acute Rhabdomyolysis, present on admission, [place] [id number]. Likely secondary to being in one position for 9 hours. # Acute stage II ulcers in the buttock areas, present on admission. - Continue with wound care and supportive care # History of alcohol dependence - No need to institute CIWA protocol at this time # History of drug dependence - Known user of cocaine and ice - Per family, last known use is around 5 months ago. Dispo: pending improvement of new sepsis and PEG tube placement. Patient likely to go home eventually Multiple barriers for safe discharge. -Patient having ongoing fever with fluctuating leukocytosis requiring workup and antibiotics. Family want to pursue full care.need to continue discussing with family regarding prognosis -Patient has no insurance and family reportedly with no financial resources to get equipments/supply to care for him at home including Evangelina lift,PEG feeding pump,supply of PEG formulas . GI Prophylaxis: Not indicated (Patient extubated) VTE Prophylaxis: Sub-Q Heparin (Unfractionated), SCDs VTE Mechanical Devices: Intermittant Pneumatic CD Resuscitation Status: CPR: Attempt Resuscitation ( is ADM) Catalino Salvador MD Sep 30, 2016 12:56
--- NOTE | 2016-09-30 15:49 | NUR ---
spiritual care: LOS staff conversational visit in room with patient transport officer Elise. Ascertained that pt is episcopalian/[employer] and family is interested in pastoral support from hair or beauty salon manager. Family is slightly acquainted with priests in area, but has not had direct pastoral support. Message left for Toan who is setswana speaking and is best acquainted with [facility] and community resources. hair or beauty salon manager and project product manager to continue to support family through staff communications and decision-making.
--- NOTE | 2016-09-30 16:07 | NUR ---
Inpatient Wound Nurse ARLETTEON RN spoke with boxing promoter to schedule education session with patient's and other caregivers. unavailable today and discharge plan is not certain at this time. RYLIE RN remains available as staff, patient, and family resource; will coordinate session with gus once discharge plan is firmly established.
--- NOTE | 2016-09-30 17:22 | PROG NOTE ---
[address] [address] PROGRESS NOTE PATIENT: SANDY SOSA : 1975 MR#: [id number] ADMIT: 08/23/2016 JOB ID: [id number] INFECTIOUS DISEASE FOLLOWUP: DATE: 09/30/2016 REASON FOR FOLLOWUP: Persistent fevers. INTERVAL HISTORY: I saw this patient earlier in his very lengthy hospital stay. The patient had suffered a severe anoxic brain injury with severe diminution of his neurologic function. His long hospital course has been characterized by recurrent fevers and mild leukocytosis. An extensive workup was done just before I left on vacation on September 22. I signed off recommending that all antibiotics be stopped, and that his fevers at that time be attributed to ongoing central fevers in a patient with profound brain injury. At that time, the patient would occasionally follow commands such as blinking his eyes or opening his mouth but this was not consistent. He was too weak or too impaired to move any of his extremities at all. He occasionally would answer questions with one word replies which were sometimes appropriate. In a week since I have been gone on vacation, the patient has remained essentially the same. He is occasionally seen to twitch a toe or move a finger but at most his strength is 1/5 and usually he is completely flaccid in his extremities. His eyes are open and they sometimes track and he occasionally mumbles one-word answer to a question which on occasion can be appropriate to the situation but much of the time he is just very lethargic. The patient is reported to at times to smile when family members are in the room and he is at some level able to interact very little bit with his environment. I was re-reconsulted today because the patient is once again having additional fevers and leukocytosis. The ongoing question with this patient, who has now been in the hospital for over five weeks, is whether he has an infection or whether these are central fevers. PHYSICAL EXAMINATION: Reveals a gentleman who is currently 37.8, but he was 31.9 early this morning. His pulse is currently around 100, but was as high as 116 with his fevers, respiratory rate 16, blood pressure 120/81. He is saturating well on room air. The patient appears exactly as he did a week ago when I last saw him. He has no evidence for head injury externally. His eyes are clear without scleral icterus or conjunctivitis. He does track at times. He does not follow any commands today though including request to open his mouth which he did when I previously saw him. He has no clear oral lesions. His neck is supple. He has no cervical adenopathy. A PICC line in his right upper extremity has been pulled and he now just has a peripheral IV in his right forearm. His lungs are relatively clear. His breathing completely unlabored. Cardiac tones: Regular rate and rhythm without murmur. His abdomen is soft and nontender. He is being fed through an NG tube and there is no evidence for sinus tenderness or breakdown of the nasal mucosa. His extremities are flaccid and he does not move anything. They are well perfused. The nurses report that there is grade 1 type erythema on his backside but no skin breakdown or no obvious source of infection. LABORATORY DATA: Labs include a white count today 16,000. In looking back at his white counts over the past month or so he has been in the hospital this would in no way be atypical, as he has had many, many white counts around 15,000 +/- 5000. The diff on today's white count is normal and his platelet count is stable at 155. His creatinine is 0.44, his ALT is 59, procalcitonins are consistently negative. Recall that when he came in back in mid August his procalcitonin was 9; that declined to normal with broad-spectrum antibiotic therapy and after about a week his procalcitonin reached levels lower than 0.25 and remained there throughout his hospital stay. Urinalysis done last week had 6-10 white cells. The culture grew mixed marcia. A dozen or more blood cultures drawn throughout this long 5-week hospital stay have all been negative. MRSA screens have also been negative. QuantiFERON Gold has been negative on the patient's blood as well. IMAGING: Our most recent imaging was a chest x-ray on the which I reviewed. This shows a subtle left lower lobe infiltrate which has previously been noted. Whether or not this represents atelectasis or pneumonia cannot be determined by review of this chest x-ray but it is not very impressive to my eye. IMPRESSION: I continue to believe that this patient has fevers as well as leukocytosis which are central in origin. An extensive infectious disease workup has taken place during his hospital stay and we have turned up no reason for these fevers aside from his severe brain injury. On this occasion, his fevers are a little higher than they have been in the past few days including the 39 degree fever this morning which certainly does command respect and requires to evaluate it, but I think at the end of the day we are going to find out once again there is no infectious explanation for this process. RECOMMENDATIONS: 1. I would discontinue the Zosyn he is currently receiving as he has received an empiric five day course without change in his fever curve and without any explanation really for why he had fevers. 2. Will continue to repeat his LFTs though today's were normal. He does have evidence of gallstones and he is certainly at risk for cholecystitis, though I do not see any evidence clinically today. 3. Will get a noncontrast CT of the chest to better evaluate the subtle left-sided infiltrate seen on the chest x-ray several days ago. 4. A lipase will be checked. 5. Blood cultures x2 will be checked. 6. I will continue to follow this patient with you, but as noted, I really think these fevers are not infectious and related to his brain injury. Given that he is a functional quadriplegic, he has a tremendous risk of infection unfortunately including urinary tract infections, infections due to skin breakdown, and aspiration pneumonia. He is also at high risk for DVT and pulmonary embolism.
--- NOTE | 2016-09-30 17:42 | NUR ---
Social Work Note: Continued Discharge Planning Data& Assessment: Per MD in multidisciplinary rounds, pt PEG tube was not placed as pt is at high risk for requiring intubation and pt family fears pt may not come off of vent if he is intubated again. FRAMING MILL OPERATOR HELPER met with DIA and to discuss pt prognosis and discharge options. Family team meeting schedule for this at to discuss pt care plan and goals of care. FRAMING MILL OPERATOR HELPER to continue to follow for any private pay DME needs vs. Hospice pending pt family decisions after Family Team Meeting. FRAMING MILL OPERATOR HELPER also spoke with [facility] regarding [facility] LTC placement waitlist. Arabella Turner is the primary contact for this program ([email or web address]). Another email was sent. Per [facility], if FRAMING MILL OPERATOR HELPER completes [facility] application for pt and pt family, they will begin application process for pt. However, they did emphasize a year long wait list and 45 beds to serve the entire state. MD in agreement this will be a good thing to have in place if pt is still living when or if a spot becomes available in the next year. FRAMING MILL OPERATOR HELPER to continue to follow. Plan: Anticipated discharge home with Hospice vs. Home with family support and private pay DME. Family team meeting schedule for this at to discuss pt care plan and goals of care. FRAMING MILL OPERATOR HELPER to continue to follow. JEFF Swan
[2016-09-30 18:00] VITALS: BP 125/87; PULSE 118; RESP 22; O2SAT 97
--- NOTE | 2016-09-30 18:25 | NUR ---
Plan of Care Patient's family informed about Hospice as a resource once they decided to take patient home. Patient's aunt is familiar with Hospice Services and will communicate within the family. Will continue to monitor.
--- NOTE | 2016-09-30 19:30 | DRSVH ---
PROCEDURE: CT CHEST WITHOUT CONTRAST ([id number]) INDICATIONS: F/U pulm infiltrate-fevers TECHNIQUE: Noncontrast 5 mm thick sections acquired from the pulmonary apices to the posterior costophrenic angl es. 7 mm thick coronal and sagittal MIP reformats were then acquired. For radiation dose reduction, the following was used: automated exposure control, adjustment of mA and/or kV according to patient size. COMPARISON: Merged With [facility], CR, XR CHEST 1VW (PORTABLE), 09[facility]12[facility]2016[facility] 16[facility] (PORTABLE), 09/17/2016, 10:19. Merged With [facility], CR, XR CHEST 1VW (POR TABLE), 09/25/2016, 8:59. FINDINGS: Image quality: Good Lungs and pleura: There continues to be some loss of aeration involving the left lower lobe. There hernandez s been significant improvement since the previous CT scan and compared to previous chest x-rays. Ther e is continued elevation of the left hemidiaphragm and continued volume loss in the posterior and lat eral aspect of the basilar segments of the left lower lobe. No prominent airway loss is identified. N o pleural effusions or pneumothorax. Central and peripheral airways are patent and normal in caliber . Mediastinum: Heart size is normal. No pericardial effusion. No mediastinal adenopathy by size crit eria. Thoracic aorta and central pulmonary arteries are normal in size. Esophagus is normal in antonino harriet. There is an NG tube into the stomach. No hiatal hernia. Bones and chest wall: No suspicious bony lesions. No vertebral body compression fractures. No axil mikey or supraclavicular adenopathy by size criteria. Thyroid gland is within normal limits. Abdomen: Visualized upper abdominal solid organs and bowel loops appear normal in the absence of con trast. IMPRESSION: 1. NG tube into the stomach. 2. Right lung is clear. Left lung is significantly improved and was thought to have been pneumonia an d atelectasis in the left lower lobe. There continues to be some residual in the basal segments. Dictated by: Hemant Gallegos M.D. on 09/30/2016 at 19:20 Approved by: Hemant Gallegos M.D. on 09/30/2016 at 19:29
[2016-09-30 20:00] VITALS: BP 117/71; PULSE 115; RESP 18; O2SAT 97
[2016-09-30 20:30] VITALS: BP 117/71; PULSE 115; RESP 18; O2SAT 97
[2016-09-30] MEDS: Desmopressin 100 mCg/mL 5 mL Nasal Spray NASAL SCH (21:22)
[2016-10-01 01:05] VITALS: BP 109/75; PULSE 110; RESP 18; O2SAT 98
[2016-10-01 05:35] VITALS: BP 125/77; PULSE 116; RESP 16; O2SAT 97
[2016-10-01 07:21] LABS: BASOPHILS % (AUTO) 0.3 % (0-3); EOSINOPHILS % (AUTO) 1.9 % (0-5); MONOCYTES % (AUTO) 6.1 % (4-12); Mean Corpuscular Hemoglobin 30.1 pg (27.0-35.0); Mean Corpuscular Volume 91.4 fL (81-100); NEUTROPHILS % (AUTO) 70.7 % (40-74); Platelet Count 140 bil/L (150-400)
[2016-10-01] MEDS: AMANTADINE 10 MG/ML TUBE SCH ×2 (08:08→22:25)
[2016-10-01 09:12] LABS: Cryptococcal Ag Negative (Negative)
--- NOTE | 2016-10-01 09:34 | PROG NOTE ---
[address] [address] PROGRESS NOTE PATIENT: SANDY SOSA : 1975 MR#: [id number] ADMIT: 08/23/2016 JOB ID: [id number] DATE: 10/01/2016 INFECTIOUS DISEASE FOLLOWUP NOTE: REASON FOR FOLLOWUP: Persistent fevers in the setting of severe brain injury. INTERVAL HISTORY: The patient's tells me that earlier this morning he was awake and said that he felt fine when she asked him and also said good morning to a nurse spontaneously. When I examined and evaluated the patient this morning he was not responding to voice, his eyes were closed and he appeared once again to be sleeping. His remains hopeful about recovery, and there is another meeting with the Palliative team later today. PHYSICAL EXAMINATION: Reveals a gentleman who is afebrile at 37.3, pulse 110, respiratory rate 16, blood pressure 125/77. He is saturating well on room air and certainly, he is in no respiratory distress. His eyes are closed, and he will not open them to command or touch. Oral cavity with dry mucous membranes. His lungs relatively clear bilaterally. Cardiac tones: Mild tachycardia. Regular rate and rhythm. Abdomen: Benign. No skin rash. He has a single peripheral IV. He is being fed by an NG tube. LABORATORIES: Include a white count, which is just basically stuck at 17,000. Totally normal diff. Platelets 140,000. Creatinine 0.29. ALT is 59. Otherwise, LFT normal. Lipase was 216 yesterday which is mildly elevated but the best it has been in a long time. Recall that for three weeks now he has had elevated lipase but it is gradually declining, in fact. Procalcitonin last done two days ago 0.1 which is basically completely negative. Serologies have been reviewed. These are negative including the NMDA receptor antibody that I had ordered sometime ago. HIV and QuantiFERON Gold also negative. No positive cultures of any significance have been obtained at any time through his hospital stay despite innumerable blood cultures including some done on the which remain negative. A chest CT that I ordered yesterday was carefully reviewed. It shows a left basilar infiltrate, which is clearly improving. IMPRESSION: His continued fever and leukocytosis, I believe, is secondary to his brain injury. Our ongoing and extensive infectious disease workup over the past 40 days has basically turned up negative on a very consistent basis. At this point, we have no evidence based on serology, cultures, or imaging to suggest focal infection. RECOMMENDATIONS: 1. No antibiotics at this time. 2. Will continue to see this patient about twice a week as long as he is here. Given that he is now functionally quadriplegic, he remains at high risk for pneumonia, UTI, decubitus ulcer and DVT but at this point, I see no evidence for any of those processes. From now on I will see the patient on Tuesdays and Fridays as long as he remains in the hospital.
[2016-10-01 11:00] VITALS: BP 131/87; PULSE 122; RESP 16; O2SAT 97
--- NOTE | 2016-10-01 11:36 | NUR ---
spiritual care: follow up/ introduced Fr Khan who met with pt's in room. Fr. Khan speaks bhutanese and shared that the family's primary concern is financial as they deal with prognosis and planning. Family updated about meeting planned for tomorrow. and manager fiber to continue to follow
--- NOTE | 2016-10-01 11:47 | NUR ---
Meeting Spoke with today RE: Interdisciplinary meeting scheduled for (10/02/16) at 15:00 - 16:00 , Stella will inform family members that will be present at the meeting of the time and location. When Fr. Khan was present in the room, patient appears to be aware of what's going on, when prognosis is being discussed, patient's facial expression changes and closes his eyes. appreciates the visit.
--- NOTE | 2016-10-01 13:35 | PCM.PNMED ---
Subjective Date of Service Oct 01, 2016 Subjective Patient seen and examined. From my examination ~ 2-3 weeks ago, patient's neurological response has worsened. Discussed with sister bedside. Vitals noted. Exam Vital Signs Vital Sign - Last Date Time Temp Pulse Resp B/P Pulse Ox O2 Delivery O2 Flow Rate FiO2 10/01/16 11:00 39.1 122 16 131/87 97 Room Air 09/30/16 20:30 2.00 30 Intake and Output 09/30/16 09/30/16 10/01/16 Cumulative From/Thru 15:00 23:00 07:00 08/23/16 05:20 - 10/01/16 05:36 Intake Total 162 ml 1240 ml 1196 ml 752252 ml Output Total 750 ml 350 ml 748698 ml Balance 162 ml 490 ml 846 ml 04290 ml Intake Oral 560 ml IV Total 162 ml 40 ml 0 ml 37461 ml Tube Feeding 1200 ml 796 ml 44928 ml TPN/PPN 1526 ml Tube Irrigant 400 ml 09135 ml Output Urine Total 750 ml 350 ml 33259 ml Stool Total 36385 ml Gastric Drainage Total 1070 ml Ultrafiltrate 4700 ml Other 330 ml # Voids 14 # Bowel Movements 1 22 Exam General: mild respiratory Distress,NG tube in place Head: Normal Eyes: Scleral Anicteric Nose: Mucous Membr Moist/[place] Mouth: Mucous Membr Moist/[place] Neck: Supple Chest & Lungs: ronchi on lower chest bilaterally Cardiovascular: Regular Rate/Rhythm Pulses: NL DP, PT Extremities: No cyanosis/clubbing/edema bilat stage 1 sacral decub,no evidence of infection Neurological: alert ,eyes open, non verbal mostly . Does not follow command . Very limited movement of all extremities noted.power 1/5 all over Lab and Diagnostics Result Diagram: 10/01/16 0651 10/01/16 0651 Microbiology Blood cultures pending MRSA swab pending X-Rays, CTs and MRIs CT BRAIN WITHOUT CONTRAST IMPRESSION: No acute disease. Dictated by: Hemant Gallegos M.D. on 08/23/2016 CT BRAIN WITHOUT CONTRAST IMPRESSION: 1. Diffuse bilateral hypodensity of the globus pallidus. This is a new finding when compared with the study dated 08/23/16. Differential considerations include anoxic injury, carbon monoxide neurotoxicity, excessive alcohol ingestion, and methanol or ethylene glycol ingestion. Dictated by: Dinora Kang M.D. 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 Dictated by: Jacob Mosqueda M.D. on 08/28/2016 MRI STROKE PROTOCOL IMPRESSION: BRAIN MRI: Continued worsening of ischemic injury to the brain parenchyma, symmetric bilaterally, and best seen in the deep white matter of the lentiform nuclei, the owlfe radiata, and the centrum semiovale. No associated hemorrhage. BRAIN MR ANGIOGRAM: No acute disease to the intracranial arterial vasculature. NECK MR ANGIOGRAM: Normal cervical MR angiogram. The estimate of stenosis included in the report of the imaging study was calculated using the NASCET method Dictated by: Jack Padilla M.D. on 09/15/2016 CT CHEST WITHOUT CONTRAST IMPRESSION: Small basal left pleural effusion is unchanged, with associated left lower lobe compressive atelectasis. Superimposed pneumonia therefore cannot be excluded. Dictated by: Binh Ochoa M.D. on 09/07/2016 at 13:47 US RENAL SONOGRAM IMPRESSION: No hydronephrosis. Right renal cyst. Dictated by: Shobha Vale M.D. on 08/24/2016 US ABDOMEN, LIMITED IMPRESSION: Cholelithiasis, without justin gallbladder wall thickening to suggest acute cholecystitis at this time. Dictated by: Binh Ochoa M.D. on 09/07/2016 MR ABDOMEN MRCP IMPRESSION: 1. Markedly limited study due to motion artifact. 2. Cholelithiasis without evidence of cholecystitis. 3. No biliary ductal dilatation or definite choledocholithiasis. 4. No peripancreatic edema to suggest pancreatitis an MRI. No discrete pseudocyst identified. Dictated by: Bruce Valadez M.D. on 09/08/2016 at 17:47 US ABDOMEN IMPRESSION: 1. Cholelithiasis. 2. Mild gallbladder wall thickening. Acute cholecystitis cannot be excluded. 3. Echogenic liver. Finding typically represents fatty infiltration; however, finding is nonspecific and correlation with clinical and laboratory findings is recommended to exclude other etiologies including hepatic cirrhosis. 4. Slightly echogenic right kidney suspicious for developing medical renal disease. Please correlate with clinical and laboratory data. Dictated by: Swathi Jimenes MD, PhD on 08/29/2016 US ABDOMEN, LIMITED IMPRESSION: Cholelithiasis, without justin gallbladder wall thickening to suggest acute cholecystitis at this time. Dictated by: Binh Ochoa M.D. on 09/07/2016 X-RAY CHEST ONE VIEW, PORTABLE IMPRESSION: No acute disease is seen a semiupright portable chest. Tubes are considered appropriate radiographically. Dictated by: Hemant Gallegos M.D. on 08/23/2016 X-RAY CHEST ONE VIEW, PORTABLE IMPRESSION: Support lines as above. Otherwise, no acute pulmonary process. Dictated by: Shobha Vale M.D. on 08/24/2016 X-RAY CHEST ONE VIEW, PORTABLE IMPRESSION: No acute cardiopulmonary disease process. Dictated by: Swathi Jimenes MD, PhD on 08/25/2016 X-RAY CHEST ONE VIEW, PORTABLE IMPRESSION: 1. Left basilar atelectasis. Otherwise lungs are clear. 2. ET and enteric tubes. Dictated by: Jacob Mosqueda M.D. on 08/27/2016 at 9:53 X-RAY CHEST ONE VIEW, PORTABLE IMPRESSION: Stable left basilar atelectasis and support lines. Dictated by: Jacob Mosqueda M.D. on 08/28/2016 at 7:54 Date of Service: 09/15/161756 PROCEDURE: MRI STROKE PROTOCOL ([id number]) IMPRESSION: BRAIN MRI: Continued worsening of ischemic injury to the brain parenchyma, symmetric bilaterally, and best seen in the deep white matter of the lentiform nuclei, the wolfe radiata, and the centrum semiovale. No associated hemorrhage. BRAIN MR ANGIOGRAM: No acute disease to the intracranial arterial vasculature. NECK MR ANGIOGRAM: Normal cervical MR angiogram. The estimate of stenosis included in the report of the imaging study was calculated using the NASCET method Dictated by: Jack Padilla M.D. on 09/15/2016 at 21:36 Approved by: Jack Padilla M.D. on 09/15/2016 at 21:42 Additional Diagnostics ABG DateTimeAnalyzed 10:20:00 -_ pH ____7.354 - 7.350 7.450 pCO2 ___31.5__ -mmHg 35.0 45.0 pO2 160 -mmHg 69.0 116 HCO3- ___17.1__ -mmol/L 22.0 26.0 FIO2 ___45.0__ -% PRVC 20 - PEEP ____8.0__ -cmH2O Assessment & Plan 41 year old male with known history of alcohol and drug use presented unresponsive after being found with vomit around him, sedated and intubated for acute hypoxemic respiratory failure secondary to aspiration for 5 days and extubated on hospital day 6 following successful spontaneous breathing trial. #Leukocytosis + fever - patient has been treated continuously inpatient, no source of infection - this could be associated with disruption in hypothalmic pathway after anoxic brain injury - ID on board, appreciate recs # Acute anoxic Brain Injury, present on admission. Ongoing - Strongly suspected anoxic brain injury given presenting history - Secondary to aspiration and intoxication. Patient had large volume of vomit suctioned out in the ED. initial toxicology screen done only for salycilate, alcohol and acetaminophen which is unremarkable - Initial EEG showed evidence of slowing but no other abnormalities to suggest that the patient is having clinical seizures causing his symptoms. - Intubated on 08/23/16, Extubated on 08/28/16. - Repeat MRI of brain on 09/15/16 showing: "Continued worsening of ischemic injury to the brain parenchyma, symmetric bilaterally" - Anoxic brain injury and its progression is most likely diagnosis at this time. However, given no obvious source of infection and remote likelihood of vasculitis, per discussion with Dr. Jara a trial of steroid therapy ( Prednisone 80mg daily x 3 days) given on 09/17/16 to see if we will achieve any significant improvement in neuro symptoms. No obvious improvement noted with 3 days of Prednisone treatment. - Per neuro recommendation increased Amantadine to 100mg bid on 09/20/16 - Increase amantadine gradually up to a goal dose of 400 mg daily. 100 mg twice a day for one week, then 100 mg in the morning and 200 mg in the evening for one week ( 100/200 started on 09/24) , and then 200 mg twice daily thereafter. -Post LP and CTA brain on 09/16/16. -findings and plan were discussed with neuro consult (Dr. Jara) by prior hospitalist on 09/17/16 . Neuro reviewed these findings with [facility] neurology. # Acute dysphagia. Likely due to anoxic brain injury noted above. Present on admission. - Per earlier notes: "After Family meeting on 09/13, has requested MBS attempted again and would like to be present." - Pt failed MBS on 09/15 due to inability to fully follow instructions. - Continue with Ngtube feed -palliative care discussed goals of care with family members ,they opted PEG tube. Consulted gastroenterology for PEG tube placement. Initially scheduled for 09/25 but canceled due to new sepsis -PEG rescheduled for 09/29 but canceled per anesthesia. Anesthesiologist discussed with family risk of patient remaining intubated and eventual tracheostomy if unable to be extubated. Family would prefer to avoid any such risk of intubation. -patient getting bolus feeds instead of continuous in preparation of discharge . Family plan to feed him boluses when they take him home . # Mild acute hypernatremia, not present on admission, active. - Appreciate nephrology consult. Will followup with recs -was on DDAVP mcg IV bid .switched to nasal DDVAP 20mch hs per nephrology. Plan to continue upon discharge. Plan to follow with nephrology in 3 weeks . May reconsult nephrology for final decision if patient stays for 10 more days for some reason # Acute Kidney Injury requiring dialysis, present on admission. Resolved - Cr on admission at 3.52 and increasing after admission. Unknown history of kidney injury. - Hemodialysis done daily starting 08/25/16 and then stopped. No longer on hemodialysis and catheter removed - initially treated with Free water flushes 300 ml q 4 hr. - Continue DDAVP for now # Acute Cholecystitis, present on admission. Resolved - Acute cholecystitis based on HIDA scan and abdominal CT. - Gen. surgery was consulted, Dr. Dash as intial thought of CCK. Upon follow up MRCP was negative for Acute Pancreatitis and Chronic cholecystitis. - Resolved cholelithiasis w/o choledocholithiasis. - TPN stopped on 09/06/16 as this was thought to be worsening cholecystitis and pancreatitis. # Acute Rhabdomyolysis, present on admission, [place] [id number]. Likely secondary to being stationary # Acute stage II ulcers in the buttock areas, present on admission. - Continue with wound care and supportive care # History of alcohol dependence - No need to institute CIWA protocol at this time # History of drug dependence - Known user of cocaine and ice - Per family, last known use is around 5 months ago. Patient's prognosis is guarded. Considering his ongoing deterioration , hospice will be ideal to meet his needs. I discussed with sister bedside, who agrees. Family meeting tomorrow to finalize plans. GI Prophylaxis: Not indicated (Patient extubated) VTE Prophylaxis: Sub-Q Heparin (Unfractionated), SCDs VTE Mechanical Devices: Intermittant Pneumatic CD Resuscitation Status: CPR: Attempt Resuscitation ( is ADM) Time spent 35 mins Ramón Hart MD Oct 01, 2016 13:28
[2016-10-01 17:00] VITALS: BP 122/84; PULSE 121; RESP 16; O2SAT 98
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
[2016-10-01] MEDS: Desmopressin 100 mCg/mL 5 mL Nasal Spray NASAL SCH (22:25)
[2016-10-02 00:01] VITALS: BP 125/77; PULSE 106; RESP 18; O2SAT 98
[2016-10-02 05:41] VITALS: BP 122/79; PULSE 111; RESP 18; O2SAT 97
--- NOTE | 2016-10-02 05:55 | NUR ---
Care/Tube Feeding/Temp [id number] continue. Some grimacing during turns, no spontaneous moments or vocalizations during this shift noted. Tube feedings and flushes continue - 400ml bolus q6hr, 400ml flush q6hr per latest nutrition note. Will give report to day shift to check with nutrition or provider that this is the plan to continue as this was set with peg tube and home use in mind. Explanation with building maintenance supervisor from dietary or physician to family would be helpful as sister was concerned that he wasn't getting enough/continuous feedings. Sister at bedside overnight, she is a good advocate for patient care. Pt has condom cath draining richmond urine into bag. No BM's this shift, but one during day shift and 2+ during prior NOC shift. Low grade temp at night, changed to afebrile in welding instructor. Pillow cases and top sheet changed due to wet rags applied to patient by sister.
[2016-10-02 07:05] LABS: BASOPHILS % (AUTO) 0.2 % (0-3); EOSINOPHILS % (AUTO) 1.9 % (0-5); MONOCYTES % (AUTO) 6.3 % (4-12); Mean Corpuscular Hemoglobin 29.2 pg (27.0-35.0); Mean Corpuscular Volume 90.6 fL (81-100); NEUTROPHILS % (AUTO) 72.3 % (40-74); Platelet Count 133 bil/L (150-400)
[2016-10-02] MEDS: AMANTADINE 10 MG/ML TUBE SCH ×2 (08:34→20:45)
[2016-10-02 11:46] VITALS: BP 114/72; PULSE 99; RESP 18; O2SAT 97
--- NOTE | 2016-10-02 12:43 | PCM.PNMED ---
Subjective Date of Service Oct 02, 2016 Subjective Patient seen and examined today. Did not open eyes on stimulation. Vitals noted. Exam Vital Signs Vital Sign - Last Date Time Temp Pulse Resp B/P Pulse Ox O2 Delivery O2 Flow Rate FiO2 10/02/16 11:46 37.7 99 18 114/72 97 Room Air 09/30/16 20:30 2.00 30 Intake and Output 10/01/16 10/01/16 10/02/16 Cumulative From/Thru 15:00 23:00 07:00 08/23/16 05:20 - 10/02/16 06:25 Intake Total 1586 ml 1450 ml 825346 ml Output Total 1200 ml 550 ml 152599 ml Balance 386 ml 900 ml 91206 ml Intake Oral 560 ml IV Total 0 ml 30895 ml Tube Feeding 835 ml 650 ml 38205 ml TPN/PPN 1526 ml Tube Irrigant 751 ml 800 ml 41689 ml Output Urine Total 1200 ml 550 ml 17052 ml Stool Total 66652 ml Gastric Drainage Total 0 ml 1070 ml Ultrafiltrate 4700 ml Other 330 ml # Voids 14 # Bowel Movements 1 0 23 Exam General: mild respiratory Distress,NG tube in place Head: Normal Eyes: Scleral Anicteric Nose: Mucous Membr Moist/Rochelle Mouth: Mucous Membr Moist/Rochelle Neck: Supple Chest & Lungs: ronchi on lower chest bilaterally Cardiovascular: Regular Rate/Rhythm Pulses: NL DP, PT Extremities: No cyanosis/clubbing/edema bilat stage 1 sacral decub,no evidence of infection Neurological: alert and oriented X 0, non verbal mostly . Does not follow command . Lab and Diagnostics Result Diagram: 10/02/16 0650 10/02/16 0650 Microbiology Blood cultures pending MRSA swab pending X-Rays, CTs and MRIs CT BRAIN WITHOUT CONTRAST IMPRESSION: No acute disease. Dictated by: Hemant Gallegos M.D. on 08/23/2016 CT BRAIN WITHOUT CONTRAST IMPRESSION: 1. Diffuse bilateral hypodensity of the globus pallidus. This is a new finding when compared with the study dated 08/23/16. Differential considerations include anoxic injury, carbon monoxide neurotoxicity, excessive alcohol ingestion, and methanol or ethylene glycol ingestion. Dictated by: Dinora Kang M.D. 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 Dictated by: Jacob Mosqueda M.D. on 08/28/2016 MRI STROKE PROTOCOL IMPRESSION: BRAIN MRI: Continued worsening of ischemic injury to the brain parenchyma, symmetric bilaterally, and best seen in the deep white matter of the lentiform nuclei, the wolfe radiata, and the centrum semiovale. No associated hemorrhage. BRAIN MR ANGIOGRAM: No acute disease to the intracranial arterial vasculature. NECK MR ANGIOGRAM: Normal cervical MR angiogram. The estimate of stenosis included in the report of the imaging study was calculated using the NASCET method Dictated by: Jack Padilla M.D. on 09/15/2016 CT CHEST WITHOUT CONTRAST IMPRESSION: Small basal left pleural effusion is unchanged, with associated left lower lobe compressive atelectasis. Superimposed pneumonia therefore cannot be excluded. Dictated by: Binh Ochoa M.D. on 09/07/2016 at 13:47 US RENAL SONOGRAM IMPRESSION: No hydronephrosis. Right renal cyst. Dictated by: Shobha Vale M.D. on 08/24/2016 US ABDOMEN, LIMITED IMPRESSION: Cholelithiasis, without justin gallbladder wall thickening to suggest acute cholecystitis at this time. Dictated by: Binh Ochoa M.D. on 09/07/2016 MR ABDOMEN MRCP IMPRESSION: 1. Markedly limited study due to motion artifact. 2. Cholelithiasis without evidence of cholecystitis. 3. No biliary ductal dilatation or definite choledocholithiasis. 4. No peripancreatic edema to suggest pancreatitis an MRI. No discrete pseudocyst identified. Dictated by: Bruce Valadez M.D. on 09/08/2016 at 17:47 US ABDOMEN IMPRESSION: 1. Cholelithiasis. 2. Mild gallbladder wall thickening. Acute cholecystitis cannot be excluded. 3. Echogenic liver. Finding typically represents fatty infiltration; however, finding is nonspecific and correlation with clinical and laboratory findings is recommended to exclude other etiologies including hepatic cirrhosis. 4. Slightly echogenic right kidney suspicious for developing medical renal disease. Please correlate with clinical and laboratory data. Dictated by: Swathi Jimenes MD, PhD on 08/29/2016 US ABDOMEN, LIMITED IMPRESSION: Cholelithiasis, without justin gallbladder wall thickening to suggest acute cholecystitis at this time. Dictated by: Binh Ochoa M.D. on 09/07/2016 X-RAY CHEST ONE VIEW, PORTABLE IMPRESSION: No acute disease is seen a semiupright portable chest. Tubes are considered appropriate radiographically. Dictated by: Hemant Gallegos M.D. on 08/23/2016 X-RAY CHEST ONE VIEW, PORTABLE IMPRESSION: Support lines as above. Otherwise, no acute pulmonary process. Dictated by: Shobha Vale M.D. on 08/24/2016 X-RAY CHEST ONE VIEW, PORTABLE IMPRESSION: No acute cardiopulmonary disease process. Dictated by: Swathi Jimenes MD, PhD on 08/25/2016 X-RAY CHEST ONE VIEW, PORTABLE IMPRESSION: 1. Left basilar atelectasis. Otherwise lungs are clear. 2. ET and enteric tubes. Dictated by: Jacob Mosqueda M.D. on 08/27/2016 at 9:53 X-RAY CHEST ONE VIEW, PORTABLE IMPRESSION: Stable left basilar atelectasis and support lines. Dictated by: Jacob Mosqueda M.D. on 08/28/2016 at 7:54 Date of Service: 09/15/16 1757 PROCEDURE: MRI STROKE PROTOCOL ([id number]) IMPRESSION: BRAIN MRI: Continued worsening of ischemic injury to the brain parenchyma, symmetric bilaterally, and best seen in the deep white matter of the lentiform nuclei, the wolfe radiata, and the centrum semiovale. No associated hemorrhage. BRAIN MR ANGIOGRAM: No acute disease to the intracranial arterial vasculature. NECK MR ANGIOGRAM: Normal cervical MR angiogram. The estimate of stenosis included in the report of the imaging study was calculated using the NASCET method Dictated by: Jack Padilla M.D. on 09/15/2016 at 21:36 Approved by: Jack Padilla M.D. on 09/15/2016 at 21:42 Additional Diagnostics ABG DateTimeAnalyzed 10:20:00 -_ pH ____7.354 - 7.350 7.450 pCO2 ___31.5__ -mmHg 35.0 45.0 pO2 160 -mmHg 69.0 116 HCO3- ___17.1__ -mmol/L 22.0 26.0 FIO2 ___45.0__ -% PRVC 20 - PEEP ____8.0__ -cmH2O Assessment & Plan 41 year old male with known history of alcohol and drug use presented unresponsive after being found with vomit around him, sedated and intubated for acute hypoxemic respiratory failure secondary to aspiration for 5 days and extubated on hospital day 6 following successful spontaneous breathing trial. #Leukocytosis + fever - patient has been treated continuously inpatient, no source of infection - this could be associated with disruption in hypothalmic pathway after anoxic brain injury - ID on board, appreciate recs # Acute anoxic Brain Injury, present on admission. Ongoing - Strongly suspected anoxic brain injury given presenting history - Secondary to aspiration and intoxication. Patient had large volume of vomit suctioned out in the ED. initial toxicology screen done only for salycilate, alcohol and acetaminophen which is unremarkable - Initial EEG showed evidence of slowing but no other abnormalities to suggest that the patient is having clinical seizures causing his symptoms. - Intubated on 08/23/16, Extubated on 08/28/16. - Repeat MRI of brain on 09/15/16 showing: "Continued worsening of ischemic injury to the brain parenchyma, symmetric bilaterally" - Anoxic brain injury and its progression is most likely diagnosis at this time. However, given no obvious source of infection and remote likelihood of vasculitis, per discussion with Dr. Jara a trial of steroid therapy ( Prednisone 80mg daily x 3 days) given on 09/17/16 to see if we will achieve any significant improvement in neuro symptoms. No obvious improvement noted with 3 days of Prednisone treatment. - Per neuro recommendation increased Amantadine to 100mg bid on 09/20/16 - Increase amantadine gradually up to a goal dose of 400 mg daily. 100 mg twice a day for one week, then 100 mg in the morning and 200 mg in the evening for one week ( 100/200 started on 09/24) , and then 200 mg twice daily thereafter. -Post LP and CTA brain on 09/16/16. -findings and plan were discussed with neuro consult (Dr. Jara) by prior hospitalist on 09/17/16 . Neuro reviewed these findings with [facility] neurology. # Acute dysphagia. Likely due to anoxic brain injury noted above. Present on admission. - Per earlier notes: "After Family meeting on 09/13, has requested MBS attempted again and would like to be present." - Pt failed MBS on 09/15 due to inability to fully follow instructions. - Continue with Ngtube feed -palliative care discussed goals of care with family members ,they opted PEG tube. Consulted gastroenterology for PEG tube placement. Initially scheduled for 09/25 but canceled due to new sepsis -PEG rescheduled for 09/29 but canceled per anesthesia. Anesthesiologist discussed with family risk of patient remaining intubated and eventual tracheostomy if unable to be extubated. Family would prefer to avoid any such risk of intubation. -patient getting bolus feeds instead of continuous in preparation of discharge . Family plan to feed him boluses when they take him home . # Mild acute hypernatremia, not present on admission, active. - Appreciate nephrology consult. Will followup with recs -was on DDAVP mcg IV bid .switched to nasal DDVAP 20mch hs per nephrology. Plan to continue upon discharge. Plan to follow with nephrology in 3 weeks . May reconsult nephrology for final decision if patient stays for 10 more days for some reason # Acute Kidney Injury requiring dialysis, present on admission. Resolved - Cr on admission at 3.52 and increasing after admission. Unknown history of kidney injury. - Hemodialysis done daily starting 08/25/16 and then stopped. No longer on hemodialysis and catheter removed - initially treated with Free water flushes 300 ml q 4 hr. - Continue DDAVP for now # Acute Cholecystitis, present on admission. Resolved - Acute cholecystitis based on HIDA scan and abdominal CT. - Gen. surgery was consulted, Dr. Dash as intial thought of CCK. Upon follow up MRCP was negative for Acute Pancreatitis and Chronic cholecystitis. - Resolved cholelithiasis w/o choledocholithiasis. - TPN stopped on 09/06/16 as this was thought to be worsening cholecystitis and pancreatitis. # Acute Rhabdomyolysis, present on admission, [place] [address]. Likely secondary to being stationary # Acute stage II ulcers in the buttock areas, present on admission. - Continue with wound care and supportive care # History of alcohol dependence - No need to institute CIWA protocol at this time # History of drug dependence - Known user of cocaine and ice - Per family, last known use is around 5 months ago. Patient's prognosis is guarded. Considering his ongoing deterioration , hospice will be ideal to meet his needs. I discussed with sister bedside, who agrees. Family meeting tomorrow to finalize plans. GI Prophylaxis: Not indicated (Patient extubated) VTE Prophylaxis: Sub-Q Heparin (Unfractionated), SCDs VTE Mechanical Devices: Intermittant Pneumatic CD Resuscitation Status: CPR: Attempt Resuscitation ( is ADM) Ramón Hart MD Oct 02, 2016 12:43
--- NOTE | 2016-10-02 16:47 | NUR ---
Palliative care note FC D/A: Medical team met with family at length today to discuss pt current condition, readiness for discharge and begin to come with up with a plan that would be meet pt needs and also be a plan of care that he might wish to have for himself. Present were Hugo Loja and Annmarie Cabrera who is pt bedside RN, Kasey who is legal executive assistant, Konrad ALVARES RN and this worker. Pt spouse Stella, his sister, Rodrick who is Stella's aunt, Yelitza who is a cousin or cousin in law as well as Paresh who is also a cousin. A bit later, another family member arrived as well. This worker only [employer] participating as this worker is familiar with pt, family and situation. Met briefly with Sondra Abernathy, CM [employer] Hospital Account Manager and Odalys who is CADDY PACKER on case. Plan will be to call Odalys post conference to pass along details and decisions. Spouse continues to express hope that if pt is able to be fed by mouth, that he will be able to regain strength needed to recover from his grave injuries. Medical team spoke for some time about pt type of injury and how there is evidence that he is losing function as unused parts of his brain start to cease function and disappear due to lack of use and atrophy. Medical team points out that pt does not currently have an infection and has not for some time but is experiencing a fever and elevated WBC and this is felt to be due to effects from his severe brain injury. Medical team expresses that all has been done for pt that it is possible to do at this time. Pt is now ready for discharge and part of reason for todays conference is to discus options with family. Discussed at length the following options; 1. Home with family. (Family/pt without insurance and would have to pay privately for any equipment, tube feeding solution and supplies, follow up medical care outside of acute care, medications, etc. Family very low income and most of these items might be unattainable for them) 2. Home with family with hospice. (It is possible that pt may be able to get some hospice coverage through use of [facility] monies.) 3. Return to [place] to obtain care where pt is a resident, he has extended family and may be able to obtain medical care and insurance at a more affordable rate. ) Family has said that pt would wish to return to [place]. They recognize that planning for this will take some time. They indicate that they may need letters or documents for the consulate. Discussed means of getting him home. Briefly reviewed previous discussion that pt is not physically able to take a regular flight. Discussed a medical flight and potential costs which are likely prohibitive. Discussed transport via private vehicle, in a van or camper where pt could lay down, which may be the most likely option. Pt will need a set of medical records for the road, in case he runs into medical needs/difficulties on the road and will also need a set sent to provider or agency taking on his care. Discussed a possible hospice info visit. This worker will not be able to coordinate as will not be available on 10/03/16. Family will need to be presented with Hospice Services choice list. (Note that pt and his family live in [facility] so that only choice is [facility]). Will need MD order for hospice consult, this can come from Dr. Hart, who is orange team. Will need to arrange for hospice info visit time (explained most likely Fri or Sat.) May also need to arrange for motor vehicle parts interpreter or [facility] may arrange for this. [facility] intake desk is available at [phone]. Teacher Dancing services is at [phone]. [place] [phone]. Phone call to Odalys yepez who is covering case and have discussed above. Met with medical team post meeting to further discern needs. May need further exploration of tube feeding needs. Case discussed further with Dr. Cabrera as well. P: Palliative care to continue to follow. Genet NANCE, CCM
--- NOTE | 2016-10-02 17:19 | NUR ---
spiritual care: follow up brief meeting with Stella before family conference to ensure logistics and that any family member she desires is there. with others on care team, discussion about goals and plan of care including family's interest in beginning Hospice care services and possibly arranging for transporting pt to [place]. Risks, possibilities and medical indications fully discussed. Care needs at home reviewed. Family raising pertinent questions, clarifying information and meeting to continue to process information as staff begins arrangements for hospice info visit.
--- NOTE | 2016-10-02 17:51 | NUR ---
Skin Skin tear on left buttock and medial buttock discovered during brief change. Wound care examined and instructed nursing staff to use barrier wipes and mepilex. Q2 turns continue.
[2016-10-02 18:10] VITALS: BP 116/76; PULSE 95; RESP 18; O2SAT 98
[2016-10-02 20:26] VITALS: BP 116/72; PULSE 90; RESP 18; O2SAT 99
[2016-10-02] MEDS: Desmopressin 100 mCg/mL 5 mL Nasal Spray NASAL SCH (20:45)
--- NOTE | 2016-10-02 21:35 | PCM.PALLBR ---
Palliative Care Recommendation Summary of palliative recommendations: 10/02/16-See summary above. Hospice info reviewed with Dr. Hart Consider placement of PEG--would need to coordinate with automotive painter and have pt sent to ICU (early in the day) post PEG placement for management of airway and goal of getting him extubated. Consider another swallow eval--coordinate when he is awake enough to try. 10/01/16-See above review. P: FCTM with family tomorrow 3-4 pm -Symptom management (Pain/other): per attending -DPOA/Advanced Directives/POLST: 1. FULL Code 2. is designated decision maker. 3. No prior paperwork for AD or POLST. -Family/emotional support: strong support from large, local family. -Spiritual support: family is Christianity and the culture of Catholicism and regular mass attendance is part of their life. They don't want a ham stringer to visit at this time as they feel, if the patient knew he would panic and think he is dying. Patient/Family Goals: Pt unable to make any decision due to severity of his injury. Patient's Stella, his designated decision maker, and his family, want all possible interventions to help pt get back to his baseline health. 09/24/16- lengthy visit with multiple family members who ultimately decided they wish to proceed with PEG tube placement. They also asked that PT and speech therapy reevaluate the patient and if possible continue to attempt rehabilitative therapy. Above requests were passed on to Dr Salvador who will make arrangements. I also drafted a letter for the patient's mother Heather to present to customs/immigration in support of her staying in the [place] longer, helping out with the patient's care now and after discharge 09/23/16-Family discussion with his . Patient is not able to make his needs known. Reviewed issues: 1. any possibility of patient being able to give some input re ongoing treatment.--for now the answer is NO 2. ? PEG to maintain nutrition even if able to take in small amt of food in the future.Stella feels needs to be discussed with other family members for acceptance. Dr. Lopez does not think infection 3. - Stella would like to have a swallow eval to see if he can assist in nutrition. He seems to be able to deal with his own secretions and he makes some effort to chew 4. Financial issues-his states she lost her job and they have 3 children. She would not be able to afford much for tube feeding let alone other supplies like adult diapers etc She is not able to hire caregivers and her mother in law states she is going back to [place]. His is adamant that the pt should stay here with her. 5. Reviewed with his to try and see his disabilities through his eyes to decide if he is OK with this course of care. 6 Christianity jenae is very important to both of them- she feels her reading of the bible to him calms him 7. continues to hold out jenae that he will make a complete recovery-- reviewed need to plan in case this is not the option meeting set up with freelance interpreter/translator for tomorrow at 1 pm to hopefully involve more extensive discussion and make plan to move ahead on PEG which I believe they will want 09/08: Family meeting today with Yaneth Prieto, Rebecca Nash and Stella, pt's sister Guillermina and his mother Cyndi in a room outside pt's room (per 's request). Both Hazel Mcmahan and Yaneth examined pt prior to meeting. 1. Dr. Mcmahan gave his opinion (based on exam and imaging) that Mr. Ann may gain enough awareness to participate in a limited way, to speak a few words and acknowledge some family members at times. However, the imaging suggests that he will not likely be able to move his arms and legs. And it is unclear, how much understanding or speech he may regain. He will need others to care for him, feed him, clean him, dress him. Dr. Wolfe agreed and reiterated the clinical opinion that he will need caregivers around the clock. 2. expressed her opinion that she knows her better as a human being than the medical team and believes that he understands a lot of what she tells him. She is sure he will get heal to a much greater degree than the doctors are predicting. 3. After Dr. Mcmahan left, Dr. Minerva Wilson arrived and gave further information about Mr. Ann. His gallbladder is improving, but his pancreas is now inflamed. She will change his antibiotics and get an imaging for the pancreas then a GI consult for recommendations. 4. Family asked about inpatient rehab or PT for pt in his home. Genetkayla GeorgeBLANCA, gently explained to family that Mr. Ann's form of insurance only covers emergency care in hospital (because he is not a resident of [place] and no aftercare as an outpatient or long term pt. Family asked about paperwork for financing the emergency care here at [facility]. Ms. George will refer them to Case Management. 5. Family asked about moving pt to [place] for more aftercare. Again, they were referred to Case Management who will work with family to explore options. 6. Family asked about feeding pt by mouth, and said ST had seen pt today, and Mr. Ann could take small amount of ice chips in mouth. Pall Care Team agrees that is a good step but not sufficient to give him the calories he needs and that tube feeding by nose may need to continue for a while. We also asked family re: possible PEG if needed in future, and they favor PEG placement if needed. 7. Family seems to have difficulty understanding the impaired consciousness that Mr. Ann has now. He is awake for a few minutes and then spends long periods with decreased LOC, appearing to be asleep but not awakening with deep sternal rub. Dr. Wolfe described this and tried to explain that this brain injury may have long periods of unconsciousness with short periods of arousal but the person may not be truly aware of who they are, where they are, who is around them. This may go on with some improvements, but not back to his prior level of well-being before his brain injury. It is not clear that family grasps this information. Medical team will likely have to continue to support them with further counseling. (Time spent in this conference: 70 minutes, 12noon-1:10pm) 09/05: Dr. Wolfe and freelance interpreter/translator met with Stella, pt's sister Guillermina and his mother Cyndi in a room adjacent to pt's room (per 's request). wanted to know why surgeon had visited her , and whether he would get a gall bladder surgery. She also wanted to know results of a brain test she said was scheduled from 2-4pm 09/04. Dr. Wolfe explained that Mr. Ann has gallbladder inflammation, but it is not clear he needs surgery, that the surgeon was asked to assess him and determine best path. Surgery note not yet in EMR. Dr. Wolfe not aware of any brain testing scheduled for 09/04 and insists it occurred. asked RN to contact Dr. Wilson to see if she could clarify this for , as perhaps a test was ordered and done whose results are not on EMR yet. I reminded family that we want to meet with them and neurologist Dr. Mcmahan at noon on ThuSeptember 08. I asked them how many other family members might be at this meeting, but they don't know yet. Sister will tell RN later who will let our office know. 09/04: Drs. Wolfe and Gisel met with and freelance interpreter/translator in a.m. to re- introduce the PC team and examine her . After exam, we offered sympathetic listening and support. We asked to meet with her and pt's mother at 1pm today. She consented. We met again, outside pt's room in a separate consult room at her request. She is worried that her can understand our conversation and would be discouraged by any bad news. Present were: Drs. Wolfe, Gisel, Steve, freelance interpreter/translator, Genet George (), and Stella, pt's sister Guillermina and his mother Cyndi. Dr. Wilson gave a brief medical update, acknowledging to the family that pt has shown small signs of improvement, but she is very cautious about what this means for him. Dr. Wolfe gave news from Dr. Haynes that pt's kidneys are improving enough that he will likely not need any more dialysis. . 1. We gently explained to family that Santiago's brain injury is going to be a long, slow process of waiting and helping him before we know what he will be able to do for himself. 2. Dr. Wolfe told them that he may not be able to get out of a bed, that he may not be able to eat, bathe, dress on his own, that he may not be able to be aware of when he needs to use the bathroom. Someone will have to take care of him for all these things, and it will probably be a year before the neurology doctors can give a better idea of how much self-care he can recover. 3. His asked about his speaking abilities. He does speak at times, and it seems to be clear speech and meaningful when it occurs. Dr. Wilson says she will ask Dr. Mcmahan about this, as we don't know how much speaking ability or thinking ability he will recover. 4. We invited family to a meeting Thursday with all of us and Dr. Mcmahan, which gives us more time to observe Santiago tomorrow and over the weekend- -as well as giving the family members who work time to try to arrange to get off for this meeting. 5. We offered supportive listening and answered questions. Please see Ms. George's SW note from re: additional information on family responses today. 08/26 Family Conference Team Meeting (FCTM): On Hospital Day 4 Palliative Care had an initial meeting with family to gather background information about the pt and give a medical update compiled by the Attending hospitalist team through a [place] Speaking Television Cameraman. We met with family at length. This included pt mother Cyndi, sister Guillermina, nephew Paresh, cousin Sina and his spouse Jacquelyn and patient's spouse Eilse Douglas (freelance interpreter/translator services), Genet George (SW), Hazel Wolfe, and Jyotsna--all from [facility]-- and Dr. Rodriguez ([facility] hospitalist food service team member). Stella notes that she and pt have three children; Santiago Sánchez (13), Zofia (8) and Radha (6). Discussed at length pt current condition and answered questions about medical issues. Dr. Hastings explained that neurological workup is ongoing and outcome is not clear. Dr. Wolfe went over treatments being used to care for pt's lungs and kidneys. 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 He is proud of his capabilities and has learned his skills on the job. Family is Christianity and is part of the quaker at [facility] in [place]. Pt enjoys his children and is noted to be a good father. He is described as someone that others esteem and look up to, someone others love, he thinks about the future of his children and plans for them and is a hard worker. Pt has long struggled with depression. He has felt sad that he was raised by his grandmother and for reasons that are unclear, not by his parents. He longed to have a family of his own so that he could be a positive influence and offer parental love and support for his children that he feels he didn't receive. He has disclosed to his spouse and sister that he had depression and at times wished that he had not been born. Family does not think that current episode was a suicide attempt. Pt comes from a family of heavy drinkers and has used drugs and ETOH at baseline, and more so in recent days prior to this hospitalization. Sister feels that pt was not setting a good example for his children with his use of drugs and ETOH. Spouse disclosed pt feelings of depression and sadness and this was very difficult for her to discuss this in front of pt's family. Pt sister expressed support for her to disclose, indicating that this needs to be talked about in order for pt to get the help that he needs. Patient's mother Cyndi, became upset and had to leave the room early and it appeared that she was not aware of some of the family issues brought forward by the and sister today. Family assured by team and freelance interpreter/translator that this information about family issues , depression, drinking is confidential and medical team only uses information to help monitor pt's health. For example, as a result of this information, the team may be watching for signs of withdrawal from alcohol or considering start of antidepressant when Santiago is able to take po or have a feeding tube to deliver medication. Problems: End of Life Preferences full code Goals of Care prefer ECF but finances not possible. significant concern re: ability to manage pt and her 3 children remains very unclear Resuscitation Status Resuscitation Status: CPR: Attempt Resuscitation ( is ADM) POLST Updates/Changes Previous POLST?: No Artificially Admin Nutrition: Long-Term Nutrition by Tube Feeding Total time 90 minutes; >50% face to face with patient and/or family, providing counselling regarding plans and recommendations, and in care coordination with his/her medical teams. A majority of this was spent in conference but also case coordination pre and post conferecnce with managing staff I also spent an additional [ ] minutes counseling for advanced care planning with the patient/the patients family/the surrogate decision maker. Palliative Brief Note Date of Service Oct 02, 2016 . Case management and family meeting Present: [facility], [facility], Dr. Hart-hospitalist, Dr. Arias lead hospitalist, Sammie Jones RNCM, Kasey Zendejas-Annmarie stone pharmacy operations coordinator: Stella- , Paresh, cousin, Rodrick Aunt, another 2 cousins showed up later Television Cameraman Issues discussed: Neuro injury-flaccid paralysis but able to open eyes, track and speak some words- sensical Indicated pain with a grimace with movement of leg (passive) as per cousin. Family sees improvement with bit more speech. Much discussion re minimal progress vs residual diffuse atrophy on imaging Locked in otherwise-inability to make needs known. Nutrition-adequate but issue of dobbhoff vs PEG- no decisions made.Dobbhoff would eventually be expected to fail. Aggressive issue of placing PEG, need for anesthesia, high risk for aspiration etc Possible home without hospice vs with hospice-would need to have aligned goals with hospice-- indicates would bring him back tohospital for further treatment if he deteriorated. later discussion with hospice-- Dr. Alexander. Pt would qualify as chronic vegetative state with good albumin and ongoing feedings and he would not be eligible for hospice with this dx unless evidence to support deterioration and 6 month life expectancy. Concern if is only caregiver with 3 children, ability to supply jevity etc. Possibility of getting him back to [place]--issue as a basic quadriplegic-- reviewed Fever and leukocytosis --thought to be central O: pt seen later- eyes open and tracks to L but only partially to R single words responses- to with delay but appropriate completely flaccid paralysis albumin 3.5 Camille Cabrera MD Oct 02, 2016 21:35
[2016-10-03] MEDS: Heparin 5,000 Unit/mL Inj SUBQ SCH ×3 (01:22→16:57)
[2016-10-03 01:23] VITALS: BP 122/66; PULSE 78; RESP 17; O2SAT 98
[2016-10-03 03:44] VITALS: BP 108/66; PULSE 100; O2SAT 97
--- NOTE | 2016-10-03 06:14 | NUR ---
Shift Note Unchanged neurological status, family at bedside, Q2 turn continues, all needs attended.
[2016-10-03] MEDS: AMANTADINE 10 MG/ML TUBE SCH ×2 (07:46→20:31)
--- NOTE | 2016-10-03 08:54 | PROG NOTE ---
[address] [address] PROGRESS NOTE PATIENT: SANDY SOSA : 1975 MR#: [id number] ADMIT: 08/23/2016 JOB ID: [id number] DATE: 10/03/2016 INFECTIOUS DISEASE FOLLOWUP NOTE: REASON FOR FOLLOWUP: Persistent fevers and leukocytosis in a patient status post cardiopulmonary arrest approximately six weeks ago. INTERVAL HISTORY: The patient this morning is wide awake with his eyes open. He tracks appropriately but does not answer any questions. His spouse, who is with him in the room, states that yesterday he was very chatty but when asked to describe the conversation it is more of the same which includes one-word answers to questions such as okay, familia and fine. This has been the pattern in that he gives one or two word responses to questions which are often appropriate but he is unable to say much beyond that point. PHYSICAL EXAMINATION: Reveals a gentleman who has been afebrile now for 24 hours or so. He is currently 37.2, pulse 100, respiratory rate 17, blood pressure 108/77. He is saturating well on room air. Does not appear to be in any distress. As mentioned, his eyes are open and he tracks but does not follow commands or answer my questions this morning. Eyes without conjunctivitis. Oral cavity negative. Lungs relatively clear. Cardiac tones without new murmur. Abdomen benign. He has a feeding tube in the nose, and there were discussions about a PEG tube. LABORATORIES: Include a white count stable at 17,000 with normal diff, platelet count a little low at 133. Creatinine less than 0.3. LFT normal except a slightly elevated ALT at 62. Recent lipase was elevated. No new serologies are available, as all the prior ones were negative. All followup blood cultures have been negative. IMAGING: No new imaging has been done. IMPRESSION: This patient continues to have fevers and leukocytosis, and I think all of this is central in origin and related to his brain injury. We have stopped all antibiotics and are watching him at this point. RECOMMENDATIONS: 1. No antibiotics. 2. I will continue to see this patient on Tuesdays and Fridays as long as he remains here in the hospital. 3. 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 He remains at high risk for pneumonia, UTI and decubitus ulcers. He is also at risk for environmental overheating or overcooling, so it will be important to keep the room temperature appropriate and to add or subtract blankets and sheets as necessary, as the patient is not capable of doing any of this. This morning when I found the patient, he was quite sweaty and had a fair amount of covers on in a very warm room which I think is one of the reasons he may develop periodic fevers.
--- NOTE | 2016-10-03 11:28 | NUR ---
Social Work: Continued Discharge Planning/Multidisciplinary Rounds D: EMR reviewed. Pt is on day 41 of hospitalization. Pt discussed in multidisciplinary rounds - placed an order for Hospice Info. Visit. Pt discussed in multidisciplinary rounds, requested SW confirm 1. Pt can go on Hospice [facility] as AEM through the [facility]. 2. If Hospice will accept pt with NG Tube or PEG Tube 3. If Hospice will accept pt as Full Code T/C to Nikki at [facility] 1. Nikki confirmed pt can open with Hospice [facility] through the [facility] - Hospice doesn't deny any pt's - AEM is not a barrier. 2. Nikki has access to pt's chart and will have program review director chart to determine if pt can open with PEG Tube or NG Tube. Nikki will update BLANCA. 3. Hospice willing to accept pt as Full Code [id number] -- this will be addressed with family during info. visit but will not be a barrier. Nikki asked if BLANCA has had pt go through the [facility] application process - BLANCA will research pt's [facility] application history and update Nikki. Nikki stated that the [facility] will want to know whether or not this has been completed/attempted. BLANCA will await program review director and T/C from Nikki. BLANCA to update Nikki on [facility] application. BLANCA to update MD once RN provides information regarding PEG or NG Tube. BLANCA will continue to follow. JEFF Marquez
[2016-10-03 12:05] VITALS: BP 124/84; PULSE 114; RESP 16; O2SAT 97
[2016-10-03] MEDS: Acetaminophen 32.5 mg/mL 20 mL Liquid TUBE PRN (13:08)
--- NOTE | 2016-10-03 14:20 | NUR ---
Fever Pt febrile w/temp 38.4. No current order for acetaminophen, hospitalist contacted for order. 650mg liquid acetaminophen given. Temp down to 37.6.
--- NOTE | 2016-10-03 15:48 | NUR ---
NUTRITION FOLLOW UP: ASSESS: 41 YO male with anoxic brain injury, currently non-responsive, now with development of leukocytosis and fever likely related to brain injury per infectious disease MD. Pt now s/p family meeting to discuss discharge needs, family desires to take pt home to [place], professor of social work working on info visit with hospice to discuss potential hospice. Palliative notes from 10/02 report possible PEG with oil burner installer involvement/ICU (PEG placement was canceled 09/30 due to fever)and consideration of swallow eval. PMHx: ETOH abuse. DIET: NPO. NUTRITION SUPPORT: Jevity 1.5~bolus of 400 mL 4 times per day, with 25 mL H2O flush before and after each bolus. Also 400 ML H2O bolus 4 times per day. TF and H2O bolus providing 2400 kcals, 102 g protein and 3016 ml free H20 per day. Fluids provided from flush dose and bolus dose will be the same volume as nephrology has ordered (300 mL every 4 hours). LABS: Reviewed. Glu 122, Alb 3.5, Lipase 216 MEDICATIONS: Reviewed. GI: BM x 1 (09/29). SKIN: Wounds healed per wound care note. ANTHROPOMETRICS: Current Wt:(09/29)-- 87.3 kg. Admit wt: 95.1 kg. IBW: 72.7 kg ESTIMATED NEEDS: Calories: 6372-5768 kcal/day (25-30 kcal/kg BW) Protein: 85-110 g protein (1.2-1.5 g/kg BW IBW) Fluid: Approx. ~3565-5106 mL (25-35 mL/kg BW) but fluids per nephrology at this time. NUTRITION DIAGNOSIS: 1) Inadequate oral intake related to inability to consume sufficient energy due to cognition, as evidenced by NPO status - IMPROVED Continues on bolus tube feeding. INTERVENTION: 1) Bolus tube feeding continues. Clarified regimen with RN on 09/29. 2) Low cost formula options researched, provided to DOT ETCHER APPRENTICE on 09/29, please see previous in-depth RD note. MONITOR/EVALUATE: Enteral feeding changes / tolerance, labs, weights, nutrition status. Follow per high nutrition risk guidelines.
--- NOTE | 2016-10-03 15:55 | PCM.PNMED ---
Subjective Date of Service Oct 03, 2016 Subjective Patient seen and examined today. Had a detailed discussion with and sister of the patient, in addition to the family meeting yesterday. They understand that Santiago's prognosis is guarded. They understand that if provided hospice, it will be to achieve the comfort of the patient. They are persistent that they want him to be taken to [place], in a month, as that would have been his final wish. Exam Vital Signs Vital Sign - Last Date Time Temp Pulse Resp B/P Pulse Ox O2 Delivery O2 Flow Rate FiO2 10/03/16 13:59 37.6 10/03/16 12:05 114 16 124/84 97 Room Air 09/30/16 20:30 2.00 30 Intake and Output 10/02/16 10/02/16 10/03/16 Cumulative From/Thru 15:00 23:00 07:00 08/23/16 05:20 - 10/03/16 06:25 Intake Total 1200 ml 1600 ml 762648 ml Output Total 750 ml 900 ml 361919 ml Balance 450 ml 700 ml 32764 ml Intake Oral 0 ml 560 ml IV Total 0 ml 01568 ml Tube Feeding 400 ml 800 ml 19689 ml TPN/PPN 1526 ml Tube Irrigant 800 ml 800 ml 35461 ml Output Urine Total 750 ml 900 ml 853036 ml Stool Total 67345 ml Gastric Drainage Total 0 ml 1070 ml Ultrafiltrate 4700 ml Other 330 ml # Voids 14 # Bowel Movements 1 24 Exam General: mild respiratory Distress,NG tube in place Head: Normal Eyes: Scleral Anicteric Nose: Mucous Membr Moist/Virgie Mouth: Mucous Membr Moist/Virgie Neck: Supple Chest & Lungs: ronchi on lower chest bilaterally Cardiovascular: Regular Rate/Rhythm Pulses: NL DP, PT Extremities: No cyanosis/clubbing/edema bilat stage 1 sacral decub,no evidence of infection Neurological: alert and oriented X 0, non verbal mostly . Does not follow command . Lab and Diagnostics Result Diagram: 10/02/16 0650 10/02/16 0650 Microbiology Blood cultures pending MRSA swab pending X-Rays, CTs and MRIs CT BRAIN WITHOUT CONTRAST IMPRESSION: No acute disease. Dictated by: Hemant Gallegos M.D. on 08/23/2016 CT BRAIN WITHOUT CONTRAST IMPRESSION: 1. Diffuse bilateral hypodensity of the globus pallidus. This is a new finding when compared with the study dated 08/23/16. Differential considerations include anoxic injury, carbon monoxide neurotoxicity, excessive alcohol ingestion, and methanol or ethylene glycol ingestion. Dictated by: Dinora Kang M.D. 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 Dictated by: Jacob Mosqueda M.D. on 08/28/2016 MRI STROKE PROTOCOL IMPRESSION: BRAIN MRI: Continued worsening of ischemic injury to the brain parenchyma, symmetric bilaterally, and best seen in the deep white matter of the lentiform nuclei, the wolfe radiata, and the centrum semiovale. No associated hemorrhage. BRAIN MR ANGIOGRAM: No acute disease to the intracranial arterial vasculature. NECK MR ANGIOGRAM: Normal cervical MR angiogram. The estimate of stenosis included in the report of the imaging study was calculated using the NASCET method Dictated by: Jack Padilla M.D. on 09/15/2016 CT CHEST WITHOUT CONTRAST IMPRESSION: Small basal left pleural effusion is unchanged, with associated left lower lobe compressive atelectasis. Superimposed pneumonia therefore cannot be excluded. Dictated by: Binh Ochoa M.D. on 09/07/2016 at 13:47 US RENAL SONOGRAM IMPRESSION: No hydronephrosis. Right renal cyst. Dictated by: Shobha Vale M.D. on 08/24/2016 US ABDOMEN, LIMITED IMPRESSION: Cholelithiasis, without justin gallbladder wall thickening to suggest acute cholecystitis at this time. Dictated by: Binh Ochoa M.D. on 09/07/2016 MR ABDOMEN MRCP IMPRESSION: 1. Markedly limited study due to motion artifact. 2. Cholelithiasis without evidence of cholecystitis. 3. No biliary ductal dilatation or definite choledocholithiasis. 4. No peripancreatic edema to suggest pancreatitis an MRI. No discrete pseudocyst identified. Dictated by: Bruce Valadez M.D. on 09/08/2016 at 17:47 US ABDOMEN IMPRESSION: 1. Cholelithiasis. 2. Mild gallbladder wall thickening. Acute cholecystitis cannot be excluded. 3. Echogenic liver. Finding typically represents fatty infiltration; however, finding is nonspecific and correlation with clinical and laboratory findings is recommended to exclude other etiologies including hepatic cirrhosis. 4. Slightly echogenic right kidney suspicious for developing medical renal disease. Please correlate with clinical and laboratory data. Dictated by: Swathi Jimenes MD, PhD on 08/29/2016 US ABDOMEN, LIMITED IMPRESSION: Cholelithiasis, without justin gallbladder wall thickening to suggest acute cholecystitis at this time. Dictated by: Binh Ochoa M.D. on 09/07/2016 X-RAY CHEST ONE VIEW, PORTABLE IMPRESSION: No acute disease is seen a semiupright portable chest. Tubes are considered appropriate radiographically. Dictated by: Hemant Gallegos M.D. on 08/23/2016 X-RAY CHEST ONE VIEW, PORTABLE IMPRESSION: Support lines as above. Otherwise, no acute pulmonary process. Dictated by: Shobha Vale M.D. on 08/24/2016 X-RAY CHEST ONE VIEW, PORTABLE IMPRESSION: No acute cardiopulmonary disease process. Dictated by: Swathi Jimenes MD, PhD on 08/25/2016 X-RAY CHEST ONE VIEW, PORTABLE IMPRESSION: 1. Left basilar atelectasis. Otherwise lungs are clear. 2. ET and enteric tubes. Dictated by: Jacob Mosqueda M.D. on 08/27/2016 at 9:53 X-RAY CHEST ONE VIEW, PORTABLE IMPRESSION: Stable left basilar atelectasis and support lines. Dictated by: Jacob Mosqueda M.D. on 08/28/2016 at 7:54 Date of Service: 09/15/16 1757 PROCEDURE: MRI STROKE PROTOCOL ([id number]) IMPRESSION: BRAIN MRI: Continued worsening of ischemic injury to the brain parenchyma, symmetric bilaterally, and best seen in the deep white matter of the lentiform nuclei, the wolfe radiata, and the centrum semiovale. No associated hemorrhage. BRAIN MR ANGIOGRAM: No acute disease to the intracranial arterial vasculature. NECK MR ANGIOGRAM: Normal cervical MR angiogram. The estimate of stenosis included in the report of the imaging study was calculated using the NASCET method Dictated by: Jack Padilla M.D. on 09/15/2016 at 21:36 Approved by: Jack Padilla M.D. on 09/15/2016 at 21:42 Additional Diagnostics ABG DateTimeAnalyzed 10:20:00 -_ pH ____7.354 - 7.350 7.450 pCO2 ___31.5__ -mmHg 35.0 45.0 pO2 160 -mmHg 69.0 116 HCO3- ___17.1__ -mmol/L 22.0 26.0 FIO2 ___45.0__ -% PRVC 20 - PEEP ____8.0__ -cmH2O Assessment & Plan 41 year old male with known history of alcohol and drug use presented unresponsive after being found with vomit around him, sedated and intubated for acute hypoxemic respiratory failure secondary to aspiration for 5 days and extubated on hospital day 6 following successful spontaneous breathing trial. #Leukocytosis + fever - patient has been treated continuously inpatient, no source of infection - this could be associated with disruption in hypothalmic pathway after anoxic brain injury - ID on board, appreciate recs # Acute anoxic Brain Injury, present on admission. Ongoing - Strongly suspected anoxic brain injury given presenting history - Secondary to aspiration and intoxication. Patient had large volume of vomit suctioned out in the ED. initial toxicology screen done only for salycilate, alcohol and acetaminophen which is unremarkable - Initial EEG showed evidence of slowing but no other abnormalities to suggest that the patient is having clinical seizures causing his symptoms. - Intubated on 08/23/16, Extubated on 08/28/16. - Repeat MRI of brain on 09/15/16 showing: "Continued worsening of ischemic injury to the brain parenchyma, symmetric bilaterally" - Anoxic brain injury and its progression is most likely diagnosis at this time. However, given no obvious source of infection and remote likelihood of vasculitis, per discussion with Dr. Jara a trial of steroid therapy ( Prednisone 80mg daily x 3 days) given on 09/17/16 to see if we will achieve any significant improvement in neuro symptoms. No obvious improvement noted with 3 days of Prednisone treatment. - Per neuro recommendation increased Amantadine to 100mg bid on 09/20/16 - Increase amantadine gradually up to a goal dose of 400 mg daily. 100 mg twice a day for one week, then 100 mg in the morning and 200 mg in the evening for one week ( 100/200 started on 09/24) , and then 200 mg twice daily thereafter. -Post LP and CTA brain on 09/16/16. -findings and plan were discussed with neuro consult (Dr. Jara) by prior hospitalist on 09/17/16 . Neuro reviewed these findings with [facility] neurology. # Acute dysphagia. Likely due to anoxic brain injury noted above. Present on admission. - Per earlier notes: "After Family meeting on 09/13, has requested MBS attempted again and would like to be present." - Pt failed MBS on 09/15 due to inability to fully follow instructions. - Continue with Ngtube feed -palliative care discussed goals of care with family members ,they opted PEG tube. Consulted gastroenterology for PEG tube placement. Initially scheduled for 09/25 but canceled due to new sepsis -PEG rescheduled for 09/29 but canceled per anesthesia. Anesthesiologist discussed with family risk of patient remaining intubated and eventual tracheostomy if unable to be extubated. Family would prefer to avoid any such risk of intubation. -patient getting bolus feeds instead of continuous in preparation of discharge . Family plan to feed him boluses when they take him home . # Mild acute hypernatremia, not present on admission, active. - Appreciate nephrology consult. Will followup with recs -was on DDAVP mcg IV bid .switched to nasal DDVAP 20mch hs per nephrology. Plan to continue upon discharge. Plan to follow with nephrology in 3 weeks . May reconsult nephrology for final decision if patient stays for 10 more days for some reason # Acute Kidney Injury requiring dialysis, present on admission. Resolved - Cr on admission at 3.52 and increasing after admission. Unknown history of kidney injury. - Hemodialysis done daily starting 08/25/16 and then stopped. No longer on hemodialysis and catheter removed - initially treated with Free water flushes 300 ml q 4 hr. - Continue DDAVP for now # Acute Cholecystitis, present on admission. Resolved - Acute cholecystitis based on HIDA scan and abdominal CT. - Gen. surgery was consulted, Dr. Dash as intial thought of CCK. Upon follow up MRCP was negative for Acute Pancreatitis and Chronic cholecystitis. - Resolved cholelithiasis w/o choledocholithiasis. - TPN stopped on 09/06/16 as this was thought to be worsening cholecystitis and pancreatitis. # Acute Rhabdomyolysis, present on admission, [place] [id number]. Likely secondary to being stationary # Acute stage II ulcers in the buttock areas, present on admission. - Continue with wound care and supportive care # History of alcohol dependence - No need to institute CIWA protocol at this time # History of drug dependence - Known user of cocaine and ice - Per family, last known use is around 5 months ago. Patient's prognosis is guarded. Considering his ongoing deterioration , hospice will be ideal to meet his needs. I discussed with sister bedside, who agrees. Family meeting tomorrow to finalize plans. GI Prophylaxis: Not indicated (Patient extubated) VTE Prophylaxis: Sub-Q Heparin (Unfractionated), SCDs VTE Mechanical Devices: Intermittant Pneumatic CD Resuscitation Status: CPR: Attempt Resuscitation ( is ADM) Time spent 1.5hour Ramón Hart MD Oct 03, 2016 15:55
[2016-10-03 16:43] VITALS: BP 121/81; PULSE 109; RESP 16; O2SAT 98
--- NOTE | 2016-10-03 17:41 | NUR ---
Social Work: Continued Discharge Planning/Multidisciplinary Rounds D: EMR reviewed. Pt is on day 41 of hospitalization. Pt discussed in multidisciplinary rounds - placed an order for Hospice Info. Visit. Pt discussed in multidisciplinary rounds, requested SW confirm 1. Pt can go on [facility] as AEM through the [facility] [place]. 2. If Hospice will accept pt with NG Tube or PEG Tube 3. If Hospice will accept pt as Full Code T/C to Nikki at [facility] 1. Nikki confirmed pt can open with [facility] through the [facility] [place] - Hospice doesn't deny any pt's - AEM is not a barrier. 2. Nikki has access to pt's chart and will have rn review chart to determine if pt can open with PEG Tube or NG Tube. Nikki will update SW. 3. Hospice willing to accept pt as Full Code [id number] -- this will be addressed with family during info. visit but will not be a barrier. T/C from Nikki at [facility] who confirmed that pt is not eligible for hospice at this time. T/C to MD to provide hospice updated. SW informed MD to call Hospice MD to discuss. T/C from stating that hospice is not an option for pt as [facility] MD states pt does not meet hospice criteria at this time. requested SW to determine "all inclusive costs" for [facility] for 1-month and private pay costs for HH RN for 1-month. Pt planning to return to [place] for further care after 1-month. BLANCA explained that pt does not have PCP at this time but will call HH agencies to get best costs for pt and determine if they are willing to accept pt without a PCP if pt were to have a PCP scheduled at [facility] prior to discharge. agreeable. BLANCA to follow-up with tomorrow regarding costs. JEFF Marquez
[2016-10-03] MEDS: Desmopressin 100 mCg/mL 5 mL Nasal Spray NASAL SCH (20:31)
[2016-10-03 20:57] VITALS: BP 121/83; PULSE 101; RESP 17; O2SAT 98
[2016-10-04] MEDS: Heparin 5,000 Unit/mL Inj SUBQ SCH ×3 (00:21→17:12)
[2016-10-04 04:27] VITALS: BP 133/80; PULSE 114; RESP 18; O2SAT 97
--- NOTE | 2016-10-04 05:37 | NUR ---
Shift Note Pt. continues to be tachy HR 100-117, afebrile this shift, at bedside, continues q2 turn, TF infusing well, continues with discharge planning.
[2016-10-04 05:43] LABS: BASOPHILS % (AUTO) 0.3 % (0-3); EOSINOPHILS % (AUTO) 2.5 % (0-5); MONOCYTES % (AUTO) 7.3 % (4-12); Mean Corpuscular Hemoglobin 29.4 pg (27.0-35.0); Mean Corpuscular Volume 91.1 fL (81-100); NEUTROPHILS % (AUTO) 63.9 % (40-74); Platelet Count 147 bil/L (150-400)
[2016-10-04] MEDS: AMANTADINE 10 MG/ML TUBE SCH ×2 (08:02→20:22)
--- NOTE | 2016-10-04 11:02 | PCM.PNMED ---
Subjective Date of Service Oct 04, 2016 Subjective Patient seen and examined. As per nursing staff, patient doing better today. Tracking at times. Passed sim swallow. Vitals noted. Exam Vital Signs Vital Sign - Last Date Time Temp Pulse Resp B/P Pulse Ox O2 Delivery O2 Flow Rate FiO2 10/04/16 04:28 Supplement Oxygen 10/04/16 04:27 37.2 114 18 133/80 97 09/30/16 20:30 2.00 30 Intake and Output 10/03/16 10/03/16 10/04/16 Cumulative From/Thru 15:00 23:00 07:00 08/23/16 05:20 - 10/04/16 06:14 Intake Total 1600 ml 1600 ml 785778 ml Output Total 750 ml 800 ml 303398 ml Balance 850 ml 800 ml 74943 ml Intake Oral 560 ml IV Total 40313 ml Tube Feeding 800 ml 800 ml 28582 ml TPN/PPN 1526 ml Tube Irrigant 800 ml 800 ml 42104 ml Output Urine Total 750 ml 800 ml 013952 ml Stool Total 16519 ml Gastric Drainage Total 1070 ml Ultrafiltrate 4700 ml Other 330 ml # Voids 14 # Bowel Movements 2 1 27 Exam General: mild respiratory Distress,NG tube in place Head: Normal Eyes: Scleral Anicteric Nose: Mucous Membr Moist/[place] Mouth: Mucous Membr Moist/[place] Neck: Supple Chest & Lungs: ronchi on lower chest bilaterally Cardiovascular: Regular Rate/Rhythm Pulses: NL DP, PT Extremities: No cyanosis/clubbing/edema bilat stage 1 sacral decub,no evidence of infection Neurological: alert and oriented X 0, non verbal mostly . Follows command partially now. Tracks at times Lab and Diagnostics Result Diagram: 10/04/1651410/04/16514 Microbiology Blood cultures pending MRSA swab pending X-Rays, CTs and MRIs CT BRAIN WITHOUT CONTRAST IMPRESSION: No acute disease. Dictated by: Hemant Gallegos M.D. on 08/23/2016 CT BRAIN WITHOUT CONTRAST IMPRESSION: 1. Diffuse bilateral hypodensity of the globus pallidus. This is a new finding when compared with the study dated 08/23/16. Differential considerations include anoxic injury, carbon monoxide neurotoxicity, excessive alcohol ingestion, and methanol or ethylene glycol ingestion. Dictated by: Dinora Kang M.D. 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 Dictated by: Jacob Mosqueda M.D. on 08/28/2016 MRI STROKE PROTOCOL IMPRESSION: BRAIN MRI: Continued worsening of ischemic injury to the brain parenchyma, symmetric bilaterally, and best seen in the deep white matter of the lentiform nuclei, the wolfe radiata, and the centrum semiovale. No associated hemorrhage. BRAIN MR ANGIOGRAM: No acute disease to the intracranial arterial vasculature. NECK MR ANGIOGRAM: Normal cervical MR angiogram. The estimate of stenosis included in the report of the imaging study was calculated using the NASCET method Dictated by: Jack Padilla M.D. on 09/15/2016 CT CHEST WITHOUT CONTRAST IMPRESSION: Small basal left pleural effusion is unchanged, with associated left lower lobe compressive atelectasis. Superimposed pneumonia therefore cannot be excluded. Dictated by: Binh Ochoa M.D. on 09/07/2016 at 13:47 US RENAL SONOGRAM IMPRESSION: No hydronephrosis. Right renal cyst. Dictated by: Shobha Vale M.D. on 08/24/2016 US ABDOMEN, LIMITED IMPRESSION: Cholelithiasis, without justin gallbladder wall thickening to suggest acute cholecystitis at this time. Dictated by: Binh Ochoa M.D. on 09/07/2016 MR ABDOMEN MRCP IMPRESSION: 1. Markedly limited study due to motion artifact. 2. Cholelithiasis without evidence of cholecystitis. 3. No biliary ductal dilatation or definite choledocholithiasis. 4. No peripancreatic edema to suggest pancreatitis an MRI. No discrete pseudocyst identified. Dictated by: Bruce Valadez M.D. on 09/08/2016 at 17:47 US ABDOMEN IMPRESSION: 1. Cholelithiasis. 2. Mild gallbladder wall thickening. Acute cholecystitis cannot be excluded. 3. Echogenic liver. Finding typically represents fatty infiltration; however, finding is nonspecific and correlation with clinical and laboratory findings is recommended to exclude other etiologies including hepatic cirrhosis. 4. Slightly echogenic right kidney suspicious for developing medical renal disease. Please correlate with clinical and laboratory data. Dictated by: Swathi Jimenes MD, PhD on 08/29/2016 US ABDOMEN, LIMITED IMPRESSION: Cholelithiasis, without justin gallbladder wall thickening to suggest acute cholecystitis at this time. Dictated by: Binh Ochoa M.D. on 09/07/2016 X-RAY CHEST ONE VIEW, PORTABLE IMPRESSION: No acute disease is seen a semiupright portable chest. Tubes are considered appropriate radiographically. Dictated by: Hemant Gallegos M.D. on 08/23/2016 X-RAY CHEST ONE VIEW, PORTABLE IMPRESSION: Support lines as above. Otherwise, no acute pulmonary process. Dictated by: Shobha Vale M.D. on 08/24/2016 X-RAY CHEST ONE VIEW, PORTABLE IMPRESSION: No acute cardiopulmonary disease process. Dictated by: Swathi Jimenes MD, PhD on 08/25/2016 X-RAY CHEST ONE VIEW, PORTABLE IMPRESSION: 1. Left basilar atelectasis. Otherwise lungs are clear. 2. ET and enteric tubes. Dictated by: Jacob Mosqueda M.D. on 08/27/2016 at 9:53 X-RAY CHEST ONE VIEW, PORTABLE IMPRESSION: Stable left basilar atelectasis and support lines. Dictated by: Jacob Mosqueda M.D. on 08/28/2016 at 7:54 Date of Service: 09/15/16 1757 PROCEDURE: MRI STROKE PROTOCOL ([id number]) IMPRESSION: BRAIN MRI: Continued worsening of ischemic injury to the brain parenchyma, symmetric bilaterally, and best seen in the deep white matter of the lentiform nuclei, the wolfe radiata, and the centrum semiovale. No associated hemorrhage. BRAIN MR ANGIOGRAM: No acute disease to the intracranial arterial vasculature. NECK MR ANGIOGRAM: Normal cervical MR angiogram. The estimate of stenosis included in the report of the imaging study was calculated using the NASCET method Dictated by: Jack Padilla M.D. on 09/15/2016 at 21:36 Approved by: Jack Padilla M.D. on 09/15/2016 at 21:42 Additional Diagnostics ABG DateTimeAnalyzed 10:20:00 -_ pH ____7.354 - 7.350 7.450 pCO2 ___31.5__ -mmHg 35.0 45.0 pO2 160 -mmHg 69.0 116 HCO3- ___17.1__ -mmol/L 22.0 26.0 FIO2 ___45.0__ -% PRVC 20 - PEEP ____8.0__ -cmH2O Assessment & Plan 41 year old male with known history of alcohol and drug use presented unresponsive after being found with vomit around him, sedated and intubated for acute hypoxemic respiratory failure secondary to aspiration for 5 days and extubated on hospital day 6 following successful spontaneous breathing trial. #Leukocytosis + fever - improving - patient has been treated continuously inpatient, no source of infection - this could be associated with disruption in hypothalmic pathway after anoxic brain injury - ID on board, appreciate recs # Acute anoxic Brain Injury, present on admission. Ongoing - Secondary to aspiration and intoxication. Patient had large volume of vomit suctioned out in the ED. initial toxicology screen done only for salycilate, alcohol and acetaminophen which is unremarkable - Initial EEG showed evidence of slowing but no other abnormalities to suggest that the patient is having clinical seizures causing his symptoms. - Intubated on 08/23/16, Extubated on 08/28/16. - Repeat MRI of brain on 09/15/16 showing: "Continued worsening of ischemic injury to the brain parenchyma, symmetric bilaterally" - Anoxic brain injury and its progression is most likely diagnosis at this time. However, given no obvious source of infection and remote likelihood of vasculitis, per discussion with Dr. Jara a trial of steroid therapy ( Prednisone 80mg daily x 3 days) given on 09/17/16 to see if we will achieve any significant improvement in neuro symptoms. No obvious improvement noted with 3 days of Prednisone treatment. - Per neuro recommendation increased Amantadine to 100mg bid on 09/20/16 - Increase amantadine gradually up to a goal dose of 400 mg daily. 100 mg twice a day for one week, then 100 mg in the morning and 200 mg in the evening for one week ( 100/200 started on 09/24) , and then 200 mg twice daily thereafter. -Post LP and CTA brain on 09/16/16. -findings and plan were discussed with neuro consult (Dr. Jara) by prior hospitalist on 09/17/16 . Neuro reviewed these findings with [facility] neurology. # Acute dysphagia. Likely due to anoxic brain injury noted above. Present on admission. - patient passed sim swallow eval today, will continue tube feeds in addition to sim diet -PEG , which was an option initially, however considerig his improvement, will hold off \\ - will continue sim diet , and tube feeds for now. - family does not want to do a peg tube in patient, they want to take him to [place] in a month for further management as they have family there # Mild acute hypernatremia, not present on admission, active. - Appreciate nephrology consult. Will followup with recs -was on DDAVP mcg IV bid .switched to nasal DDVAP 20mch hs per nephrology. Plan to continue upon discharge. Plan to follow with nephrology in 3 weeks . n # Acute Kidney Injury requiring dialysis, present on admission. Resolved - Cr on admission at 3.52 and increasing after admission. Unknown history of kidney injury. - Hemodialysis done daily starting 08/25/16 and then stopped. No longer on hemodialysis and catheter removed - initially treated with Free water flushes 300 ml q 4 hr. - Continue DDAVP for now # Acute Cholecystitis, present on admission. Resolved - Acute cholecystitis based on HIDA scan and abdominal CT. - Gen. surgery was consulted, Dr. Dash as intial thought of CCK. Upon follow up MRCP was negative for Acute Pancreatitis and Chronic cholecystitis. - Resolved cholelithiasis w/o choledocholithiasis. - TPN stopped on 09/06/16 as this was thought to be worsening cholecystitis and pancreatitis. # Acute Rhabdomyolysis, present on admission, [place] [id number]. Likely secondary to being stationary # Acute stage II ulcers in the buttock areas, present on admission. - Continue with wound care and supportive care # History of alcohol dependence - No need to institute CIWA protocol at this time # History of drug dependence - Known user of cocaine and ice - Per family, last known use is around 5 months ago. Patient's prognosis is guarded. Considering his ongoing deterioration , hospice will be ideal to meet his needs. I discussed with sister bedside, who agrees. Family meeting tomorrow to finalize plans. GI Prophylaxis: Not indicated (Patient extubated) VTE Prophylaxis: Sub-Q Heparin (Unfractionated), SCDs VTE Mechanical Devices: Venous Foot Pump Resuscitation Status: CPR: Attempt Resuscitation ( is ADM) Time spent 35 mins Ramón Hart MD Oct 04, 2016 11:02
[2016-10-04 11:10] VITALS: BP 113/75; PULSE 115; RESP 22; O2SAT 97
[2016-10-04 16:00] VITALS: BP 115/78; PULSE 110; RESP 20; O2SAT 98
--- NOTE | 2016-10-04 17:23 | NUR ---
Diet Stimulation Patient tolerating diet stimulation this shift, able to consumed 2 cups of apple sauce, half of ice cream, and ice chips. very involved with feeding and demonstrated understanding to prevent aspiration. Patient noted to be more awake and interactive this shift. We'll contact Fanta Koroma, Mailing Specialist on Thursday in preparation of patient's nutritional planning upon discharge. Will continue to monitor.
[2016-10-04] MEDS: Desmopressin 100 mCg/mL 5 mL Nasal Spray NASAL SCH (20:22)
[2016-10-04 20:45] VITALS: BP 121/84; PULSE 102; RESP 17; O2SAT 98
[2016-10-05] MEDS: Heparin 5,000 Unit/mL Inj SUBQ SCH ×3 (00:29→16:35)
[2016-10-05 01:00] VITALS: BP 118/74; PULSE 101; RESP 17; O2SAT 98
[2016-10-05 05:51] VITALS: BP 111/71; PULSE 93; RESP 18; O2SAT 98
--- NOTE | 2016-10-05 06:17 | NUR ---
Shift Note Assumed pt care at 1900, pts condom cath noted off at hand off, replaced at 9pm, at 12mn noted scant urine output, bladder scan shows >900mls, notable bladder distention, condom cath taken off, order obtained for one time straight in/out cath, at 0115 noted pt with soiled brief, PVR scan done showed 643 at 0400 noted brief, heavily soiled, in/out cath withheld. Diet/Tube Feed pt now on stimulation diet, reinforced teaching to on how to avoid aspiration. Tube feed off at HS, tube feed and free water boluses during the day per timing set on the order(see paper order on 09/23/16).
[2016-10-05 06:20] LABS: BASOPHILS % (AUTO) 0.4 % (0-3); EOSINOPHILS % (AUTO) 2.7 % (0-5); MONOCYTES % (AUTO) 6.2 % (4-12); Mean Corpuscular Hemoglobin 29.8 pg (27.0-35.0); Mean Corpuscular Volume 92.7 fL (81-100); NEUTROPHILS % (AUTO) 65.3 % (40-74); Platelet Count 153 bil/L (150-400)
[2016-10-05 07:31] VITALS: BP 111/76; PULSE 87; RESP 18; O2SAT 98
--- NOTE | 2016-10-05 08:05 | NUR ---
Social Work: Continued Discharge Planning DAP: requested SW to explore all inclusive Dobhoff costs for 1-month, private pay and HH RN 3-4 per week, private pay. Pt discussed in multidisciplinary rounds and per RN, pt has been improving and has been able tolerate swallowing applesauce without aspirating. Because pt is private-pay, SW to get quote from all local infusion and HH companies and provide choices based on cost. Per request: T/C to Linda Dennison, at [facility] requesting quote for all-inclusive Dobhoff costs (including pump, quantity of Jevity, etc). BLANCA also requested quote for RN to visit pt 1x/week to check vitals and monitor Dobhoff. Juma will research and update SW with answer. T/C to Matt at [facility] requesting quote for private pay HH RN 3-4x/week for 1-month. Matt will explore and update SW with answer. T/C to QUETA Marin at [facility] requesting quote for all-inclusive Dobhoff costs (including pump, quantity of Jevity, etc). Tania not available at this time - answering service said she will page pharmacist and RN and someone will return call with an update this morning. BLANCA will continue to follow. SW to call [facility] and [facility] for quotes and follow-up. JEFF Marquez Addendum: 10/05/16 at 1020 by ALANNA LAZCANO SS T/C from [facility] answering service stating the RN/pharmacist is not available during weekends to provide quotes. SW to call back tomorrow between 0830 and 1700. Addendum: 10/05/16 at 1027 by ALANNA LAZCANO SS T/C from Juma, Pharmacist at [employer] - for all inclusive Dobhoff supplies and pump = $700 for 1-month, includes required initial RN visit. If pt wants to receive RN visit 1x/week for the month (3 remaining RN visits - 1st visit covered in $700 - would be $95 per visit. SW to update MD in rounds. JEFF Marquez Addendum: 10/06/16 at 0801 by ALANNA LAZCANO SS Per MD, pt requires 1 bottle of Jevity per day for Dobhoff.
[2016-10-05] MEDS: AMANTADINE 10 MG/ML TUBE SCH ×2 (08:12→21:19)
--- NOTE | 2016-10-05 10:59 | PCM.PNMED ---
Subjective Date of Service Oct 05, 2016 Subjective Patient is remarkably doing better. Afebrile > 24 hours. Leukocytosis improved. Tracking with eyes. Swallowing sim diet. Vitals stable. Exam Vital Signs Vital Sign - Last Date Time Temp Pulse Resp B/P Pulse Ox O2 Delivery O2 Flow Rate FiO2 10/05/16 07:31 37.6 87 18 111/76 98 Room Air 09/30/16 20:30 2.00 30 Intake and Output 10/04/16 10/04/16 10/05/16 Cumulative From/Thru 15:00 23:00 07:00 08/23/16 05:20 - 10/05/16 05:51 Intake Total 1600 ml 400 ml 274085 ml Output Total 700 ml 940536 ml Balance 900 ml 400 ml 36445 ml Intake Oral 560 ml IV Total 13481 ml Tube Feeding 800 ml 20092 ml TPN/PPN 1526 ml Tube Irrigant 800 ml 400 ml 44408 ml Output Urine Total 700 ml 157492 ml Stool Total 81269 ml Gastric Drainage Total 1070 ml Ultrafiltrate 4700 ml Other 330 ml # Voids 3 17 # Bowel Movements 1 28 Exam General: No distress,NG tube in place Head: Normal Eyes: Scleral Anicteric Nose: Mucous Membr Moist/[place] Mouth: Mucous Membr Moist/[place] Neck: Supple Chest & Lungs: ronchi on lower chest bilaterally Cardiovascular: Regular Rate/Rhythm Pulses: NL DP, PT Extremities: No cyanosis/clubbing/edema bilat stage 1 sacral decub,no evidence of infection Neurological: alert and oriented X 0, non verbal mostly . Follows command partially now. Tracks at times Lab and Diagnostics Result Diagram: 10/05/16 0541 10/04/16 0515 Microbiology Blood cultures pending MRSA swab pending X-Rays, CTs and MRIs CT BRAIN WITHOUT CONTRAST IMPRESSION: No acute disease. Dictated by: Hemant Gallegos M.D. on 08/23/2016 CT BRAIN WITHOUT CONTRAST IMPRESSION: 1. Diffuse bilateral hypodensity of the globus pallidus. This is a new finding when compared with the study dated 08/23/16. Differential considerations include anoxic injury, carbon monoxide neurotoxicity, excessive alcohol ingestion, and methanol or ethylene glycol ingestion. Dictated by: Dinora Kang M.D. 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 Dictated by: Jacob Mosqueda M.D. on 08/28/2016 MRI STROKE PROTOCOL IMPRESSION: BRAIN MRI: Continued worsening of ischemic injury to the brain parenchyma, symmetric bilaterally, and best seen in the deep white matter of the lentiform nuclei, the wolfe radiata, and the centrum semiovale. No associated hemorrhage. BRAIN MR ANGIOGRAM: No acute disease to the intracranial arterial vasculature. NECK MR ANGIOGRAM: Normal cervical MR angiogram. The estimate of stenosis included in the report of the imaging study was calculated using the NASCET method Dictated by: Jack Padilla M.D. on 09/15/2016 CT CHEST WITHOUT CONTRAST IMPRESSION: Small basal left pleural effusion is unchanged, with associated left lower lobe compressive atelectasis. Superimposed pneumonia therefore cannot be excluded. Dictated by: Binh Ochoa M.D. on 09/07/2016 at 13:47 US RENAL SONOGRAM IMPRESSION: No hydronephrosis. Right renal cyst. Dictated by: Shobha Vale M.D. on 08/24/2016 US ABDOMEN, LIMITED IMPRESSION: Cholelithiasis, without justin gallbladder wall thickening to suggest acute cholecystitis at this time. Dictated by: Binh Ochoa M.D. on 09/07/2016 MR ABDOMEN MRCP IMPRESSION: 1. Markedly limited study due to motion artifact. 2. Cholelithiasis without evidence of cholecystitis. 3. No biliary ductal dilatation or definite choledocholithiasis. 4. No peripancreatic edema to suggest pancreatitis an MRI. No discrete pseudocyst identified. Dictated by: Bruce Valadez M.D. on 09/08/2016 at 17:47 US ABDOMEN IMPRESSION: 1. Cholelithiasis. 2. Mild gallbladder wall thickening. Acute cholecystitis cannot be excluded. 3. Echogenic liver. Finding typically represents fatty infiltration; however, finding is nonspecific and correlation with clinical and laboratory findings is recommended to exclude other etiologies including hepatic cirrhosis. 4. Slightly echogenic right kidney suspicious for developing medical renal disease. Please correlate with clinical and laboratory data. Dictated by: Swathi Jimenes MD, PhD on 08/29/2016 US ABDOMEN, LIMITED IMPRESSION: Cholelithiasis, without justin gallbladder wall thickening to suggest acute cholecystitis at this time. Dictated by: Binh Ochoa M.D. on 09/07/2016 X-RAY CHEST ONE VIEW, PORTABLE IMPRESSION: No acute disease is seen a semiupright portable chest. Tubes are considered appropriate radiographically. Dictated by: Hemant Gallegos M.D. on 08/23/2016 X-RAY CHEST ONE VIEW, PORTABLE IMPRESSION: Support lines as above. Otherwise, no acute pulmonary process. Dictated by: Shobha Vale M.D. on 08/24/2016 X-RAY CHEST ONE VIEW, PORTABLE IMPRESSION: No acute cardiopulmonary disease process. Dictated by: Swathi Jimenes MD, PhD on 08/25/2016 X-RAY CHEST ONE VIEW, PORTABLE IMPRESSION: 1. Left basilar atelectasis. Otherwise lungs are clear. 2. ET and enteric tubes. Dictated by: Jacob Mosqueda M.D. on 08/27/2016 at 9:53 X-RAY CHEST ONE VIEW, PORTABLE IMPRESSION: Stable left basilar atelectasis and support lines. Dictated by: aJcob Mosqueda M.D. on 08/28/2016 at 7:54 Date of Service: 09/15/16 1757 PROCEDURE: MRI STROKE PROTOCOL ([id number]) IMPRESSION: BRAIN MRI: Continued worsening of ischemic injury to the brain parenchyma, symmetric bilaterally, and best seen in the deep white matter of the lentiform nuclei, the wolfe radiata, and the centrum semiovale. No associated hemorrhage. BRAIN MR ANGIOGRAM: No acute disease to the intracranial arterial vasculature. NECK MR ANGIOGRAM: Normal cervical MR angiogram. The estimate of stenosis included in the report of the imaging study was calculated using the NASCET method Dictated by: Jack Padilla M.D. on 09/15/2016 at 21:36 Approved by: Jack Padilla M.D. on 09/15/2016 at 21:42 Additional Diagnostics ABG DateTimeAnalyzed 10:20:00 -_ pH ____7.354 - 7.350 7.450 pCO2 ___31.5__ -mmHg 35.0 45.0 pO2 160 -mmHg 69.0 116 HCO3- ___17.1__ -mmol/L 22.0 26.0 FIO2 ___45.0__ -% PRVC 20 - PEEP ____8.0__ -cmH2O Assessment & Plan 41 year old male with known history of alcohol and drug use presented unresponsive after being found with vomit around him, sedated and intubated for acute hypoxemic respiratory failure secondary to aspiration for 5 days and extubated on hospital day 6 following successful spontaneous breathing trial. #Leukocytosis + fever - improving , afebrile > 24 hours - patient has been treated continuously inpatient, no source of infection - this could be associated with disruption in hypothalmic pathway after anoxic brain injury - ID on board, appreciate recs # Acute anoxic Brain Injury, present on admission. Ongoing - Secondary to aspiration and intoxication. Patient had large volume of vomit suctioned out in the ED. initial toxicology screen done only for salycilate, alcohol and acetaminophen which is unremarkable - Initial EEG showed evidence of slowing but no other abnormalities to suggest that the patient is having clinical seizures causing his symptoms. - Intubated on 08/23/16, Extubated on 08/28/16. - Repeat MRI of brain on 09/15/16 showing: "Continued worsening of ischemic injury to the brain parenchyma, symmetric bilaterally" - Anoxic brain injury and its progression is most likely diagnosis at this time. However, given no obvious source of infection and remote likelihood of vasculitis, per discussion with Dr. Jara a trial of steroid therapy ( Prednisone 80mg daily x 3 days) given on 09/17/16 to see if we will achieve any significant improvement in neuro symptoms. No obvious improvement noted with 3 days of Prednisone treatment. - Per neuro recommendation increased Amantadine to 100mg bid on 09/20/16 - Increase amantadine gradually up to a goal dose of 400 mg daily. 100 mg twice a day for one week, then 100 mg in the morning and 200 mg in the evening for one week ( 100/200 started on 09/24) , and then 200 mg twice daily thereafter. -Post LP and CTA brain on 09/16/16. -findings and plan were discussed with neuro consult (Dr. Jara) by prior hospitalist on 09/17/16 . Neuro reviewed these findings with [facility] neurology. # Acute dysphagia. Likely due to anoxic brain injury noted above. Present on admission. - patient passed sim swallow eval today, will continue tube feeds in addition to sim diet -PEG , which was an option initially, however considerig his improvement, will hold off \\ - will continue sim diet , and tube feeds for now. - family does not want to do a peg tube in patient, they want to take him to [place] in a month for further management as they have family there # Mild acute hypernatremia, not present on admission, active. - Appreciate nephrology consult. Will followup with recs -was on DDAVP mcg IV bid .switched to nasal DDVAP 20mch hs per nephrology. Plan to continue upon discharge. Plan to follow with nephrology in 3 weeks . n # Acute Kidney Injury requiring dialysis, present on admission. Resolved - Cr on admission at 3.52 and increasing after admission. Unknown history of kidney injury. - Hemodialysis done daily starting 08/25/16 and then stopped. No longer on hemodialysis and catheter removed - initially treated with Free water flushes 300 ml q 4 hr. - Continue DDAVP for now # Acute Cholecystitis, present on admission. Resolved - Acute cholecystitis based on HIDA scan and abdominal CT. - Gen. surgery was consulted, Dr. Dash as intial thought of CCK. Upon follow up MRCP was negative for Acute Pancreatitis and Chronic cholecystitis. - Resolved cholelithiasis w/o choledocholithiasis. - TPN stopped on 09/06/16 as this was thought to be worsening cholecystitis and pancreatitis. # Acute Rhabdomyolysis, present on admission, [place] [id number]. Likely secondary to being stationary # Acute stage II ulcers in the buttock areas, present on admission. - Continue with wound care and supportive care # History of alcohol dependence - No need to institute CIAL protocol at this time # History of drug dependence - Known user of cocaine and ice - Per family, last known use is around 5 months ago. Dispo: Prognosis guarded, however considering patient's age, and improvement, patient may survive longer than expected. Family wants to take him to [place] in a month Plan is to arrange support (nutrition and PT ) at home. GI Prophylaxis: Not indicated (Patient extubated) VTE Prophylaxis: Sub-Q Heparin (Unfractionated), SCDs VTE Mechanical Devices: Venous Foot Pump Resuscitation Status: CPR: Attempt Resuscitation ( is ADM) Time spent 35 mins Ramón Hart MD Oct 05, 2016 10:59
[2016-10-05 13:10] VITALS: BP 106/68; PULSE 67; RESP 18; O2SAT 100
--- NOTE | 2016-10-05 17:22 | NUR ---
residual tube feed At 1500hrs residual TF check and patient had approx 100ml residual left in abdomen. patient had Jevity 1.5 400ml bolus at 1100hrs over 1 hour. followed by a 400ml H2O bolus at 1300hrs. Held 1500hr scheduled TF bolus and rechecked residual at 1600hrs. patient still had approx 100ml residual. [address] Hart notified. received new orders to hold his 1500hr schedule TF bolus, recheck residual prior to his schedule 1900hr TF bolus, and decreased Jevity bolus to 300ml bolus (instead of 400ml) until nutrition can reevaluate tube feeding on Thursday10/06/2016. continue to monitor.
--- NOTE | 2016-10-05 18:17 | NUR ---
rechecked residual. rechecked residual at 1745hrs. 0ml. Dr Hart notified. continued with 1700hr scheduled H20 bolus of 400ml. continue to monitor.
[2016-10-05 18:23] VITALS: BP 112/77; PULSE 90; RESP 16; O2SAT 97
[2016-10-05 20:07] VITALS: BP 117/77; PULSE 95; RESP 20; O2SAT 99
[2016-10-05] MEDS: Desmopressin 100 mCg/mL 5 mL Nasal Spray NASAL SCH (21:19)
[2016-10-06] MEDS: Heparin 5,000 Unit/mL Inj SUBQ SCH ×3 (01:34→17:20)
[2016-10-06 05:35] VITALS: BP 116/82; PULSE 92; RESP 18; O2SAT 98
--- NOTE | 2016-10-06 06:01 | NUR ---
Mentation Pt able to track with eyes on cue and in early AM able to say one meaningful sentence "thank you for helping" repeating after his . Able to answer "yes" and "no" questions. Pt flinches and moans when he is turned, however can not perform any voluntary movements whatsoever. Pt turned q 2-2.5hrs, Mepilex removed due to incontinence.
[2016-10-06 06:11] LABS: BASOPHILS % (AUTO) 0.3 % (0-3); EOSINOPHILS % (AUTO) 3.4 % (0-5); MONOCYTES % (AUTO) 6.1 % (4-12); Mean Corpuscular Hemoglobin 28.9 pg (27.0-35.0); Mean Corpuscular Volume 91 fL (81-100); NEUTROPHILS % (AUTO) 66 % (40-74); Platelet Count 166 bil/L (150-400)
[2016-10-06] MEDS: AMANTADINE 10 MG/ML TUBE SCH ×2 (07:48→20:59)
[2016-10-06 08:33] VITALS: BP 126/88; PULSE 82; RESP 16; O2SAT 98
--- NOTE | 2016-10-06 11:18 | PCM.PNMED ---
Subjective Date of Service Oct 06, 2016 Subjective Saw a remarkable improvement in patient's condition today. During examination patient tracked me. He was fully awake. His bed side told him in polish to thank me for my services, and patient said it in Spanish realizing I do not speak polish. When I joked that this is the first time he has talked to me, everyone laughed, and he smiled a bit as well. This is a huge difference from his initial state. Vitals stable. Afebrile > 48 hours. Exam Vital Signs Vital Sign - Last Date Time Temp Pulse Resp B/P Pulse Ox O2 Delivery O2 Flow Rate FiO2 10/06/16 08:33 36.8 82 16 126/88 98 Room Air 09/30/16 20:30 2.00 30 Intake and Output 10/05/16 10/05/16 10/06/16 Cumulative From/Thru 15:00 23:00 07:00 08/23/16 05:20 - 10/06/16 05:44 Intake Total 2075 ml 825 ml 417247 ml Output Total 497228 ml Balance 2075 ml 825 ml 79209 ml Intake Oral 560 ml IV Total 28402 ml Tube Feeding 800 ml 400 ml 03131 ml TPN/PPN 1526 ml Tube Irrigant 1275 ml 425 ml 88522 ml Output Urine Total 778119 ml Stool Total 83024 ml Gastric Drainage Total 1070 ml Ultrafiltrate 4700 ml Other 330 ml # Voids 3 4 24 # Bowel Movements 2 30 Exam General: No distress,NG tube in place Head: Normal Eyes: Scleral Anicteric Nose: Mucous Membr Moist/[place] Mouth: Mucous Membr Moist/[place] Neck: Supple Chest & Lungs: ronchi on lower chest bilaterally Cardiovascular: Regular Rate/Rhythm Pulses: NL DP, PT Extremities: No cyanosis/clubbing/edema bilat stage 1 sacral decub,no evidence of infection Neurological: alert and oriented X 0, non verbal mostly . Follows command partially now. Tracks at times Lab and Diagnostics Result Diagram: 10/06/16 0540 10/04/16 0515 Microbiology Blood cultures pending MRSA swab pending X-Rays, CTs and MRIs CT BRAIN WITHOUT CONTRAST IMPRESSION: No acute disease. Dictated by: Hemant Gallegos M.D. on 08/23/2016 CT BRAIN WITHOUT CONTRAST IMPRESSION: 1. Diffuse bilateral hypodensity of the globus pallidus. This is a new finding when compared with the study dated 08/23/16. Differential considerations include anoxic injury, carbon monoxide neurotoxicity, excessive alcohol ingestion, and methanol or ethylene glycol ingestion. Dictated by: Dinora Kang M.D. 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 Dictated by: Jacob Mosqueda M.D. on 08/28/2016 MRI STROKE PROTOCOL IMPRESSION: BRAIN MRI: Continued worsening of ischemic injury to the brain parenchyma, symmetric bilaterally, and best seen in the deep white matter of the lentiform nuclei, the wolfe radiata, and the centrum semiovale. No associated hemorrhage. BRAIN MR ANGIOGRAM: No acute disease to the intracranial arterial vasculature. NECK MR ANGIOGRAM: Normal cervical MR angiogram. The estimate of stenosis included in the report of the imaging study was calculated using the NASCET method Dictated by: Jack Padilla M.D. on 09/15/2016 CT CHEST WITHOUT CONTRAST IMPRESSION: Small basal left pleural effusion is unchanged, with associated left lower lobe compressive atelectasis. Superimposed pneumonia therefore cannot be excluded. Dictated by: Binh Ochoa M.D. on 09/07/2016 at 13:47 US RENAL SONOGRAM IMPRESSION: No hydronephrosis. Right renal cyst. Dictated by: Shobha Vale M.D. on 08/24/2016 US ABDOMEN, LIMITED IMPRESSION: Cholelithiasis, without justin gallbladder wall thickening to suggest acute cholecystitis at this time. Dictated by: Binh Ochoa M.D. on 09/07/2016 MR ABDOMEN MRCP IMPRESSION: 1. Markedly limited study due to motion artifact. 2. Cholelithiasis without evidence of cholecystitis. 3. No biliary ductal dilatation or definite choledocholithiasis. 4. No peripancreatic edema to suggest pancreatitis an MRI. No discrete pseudocyst identified. Dictated by: Bruce Valadez M.D. on 09/08/2016 at 17:47 US ABDOMEN IMPRESSION: 1. Cholelithiasis. 2. Mild gallbladder wall thickening. Acute cholecystitis cannot be excluded. 3. Echogenic liver. Finding typically represents fatty infiltration; however, finding is nonspecific and correlation with clinical and laboratory findings is recommended to exclude other etiologies including hepatic cirrhosis. 4. Slightly echogenic right kidney suspicious for developing medical renal disease. Please correlate with clinical and laboratory data. Dictated by: Swathi Jimenes MD, PhD on 08/29/2016 US ABDOMEN, LIMITED IMPRESSION: Cholelithiasis, without justin gallbladder wall thickening to suggest acute cholecystitis at this time. Dictated by: Binh Ochoa M.D. on 09/07/2016 X-RAY CHEST ONE VIEW, PORTABLE IMPRESSION: No acute disease is seen a semiupright portable chest. Tubes are considered appropriate radiographically. Dictated by: Hemant Gallegos M.D. on 08/23/2016 X-RAY CHEST ONE VIEW, PORTABLE IMPRESSION: Support lines as above. Otherwise, no acute pulmonary process. Dictated by: Shobha Vale M.D. on 08/24/2016 X-RAY CHEST ONE VIEW, PORTABLE IMPRESSION: No acute cardiopulmonary disease process. Dictated by: Swathi Jimenes MD, PhD on 08/25/2016 X-RAY CHEST ONE VIEW, PORTABLE IMPRESSION: 1. Left basilar atelectasis. Otherwise lungs are clear. 2. ET and enteric tubes. Dictated by: Jacob Mosqueda M.D. on 08/27/2016 at 9:53 X-RAY CHEST ONE VIEW, PORTABLE IMPRESSION: Stable left basilar atelectasis and support lines. Dictated by: Jacob Mosqueda M.D. on 08/28/2016 at 7:54 Date of Service: 09/15/16 1757 PROCEDURE: MRI STROKE PROTOCOL ([id number]) IMPRESSION: BRAIN MRI: Continued worsening of ischemic injury to the brain parenchyma, symmetric bilaterally, and best seen in the deep white matter of the lentiform nuclei, the wolfe radiata, and the centrum semiovale. No associated hemorrhage. BRAIN MR ANGIOGRAM: No acute disease to the intracranial arterial vasculature. NECK MR ANGIOGRAM: Normal cervical MR angiogram. The estimate of stenosis included in the report of the imaging study was calculated using the NASCET method Dictated by: Jack Padilla M.D. on 09/15/2016 at 21:36 Approved by: Jack Padilla M.D. on 09/15/2016 at 21:42 Additional Diagnostics ABG DateTimeAnalyzed 10:20:00 -_ pH ____7.354 - 7.350 7.450 pCO2 ___31.5__ -mmHg 35.0 45.0 pO2 160 -mmHg 69.0 116 HCO3- ___17.1__ -mmol/L 22.0 26.0 FIO2 ___45.0__ -% PRVC 20 - PEEP ____8.0__ -cmH2O Assessment & Plan 41 year old male with known history of alcohol and drug use presented unresponsive after being found with vomit around him, sedated and intubated for acute hypoxemic respiratory failure secondary to aspiration for 5 days and extubated on hospital day 6 following successful spontaneous breathing trial. #Leukocytosis + fever - improving , afebrile > 48 hours # Acute anoxic Brain Injury, present on admission. Ongoing , significant improvement - patient seems to be comprehending with whats going on in his surroundings and responding appropriately - Secondary to aspiration and intoxication. Patient had large volume of vomit suctioned out in the ED. initial toxicology screen done only for salycilate, alcohol and acetaminophen which is unremarkable - Initial EEG showed evidence of slowing but no other abnormalities to suggest that the patient is having clinical seizures causing his symptoms. - Intubated on 08/23/16, Extubated on 08/28/16. - Repeat MRI of brain on 09/15/16 showing: "Continued worsening of ischemic injury to the brain parenchyma, symmetric bilaterally" - Anoxic brain injury and its progression is most likely diagnosis at this time. However, given no obvious source of infection and remote likelihood of vasculitis, per discussion with Dr. Jara a trial of steroid therapy ( Prednisone 80mg daily x 3 days) given on 09/17/16 to see if we will achieve any significant improvement in neuro symptoms. No obvious improvement noted with 3 days of Prednisone treatment. - Per neuro recommendation increased Amantadine to 100mg bid on 09/20/16 - Increase amantadine gradually up to a goal dose of 400 mg daily. 100 mg twice a day for one week, then 100 mg in the morning and 200 mg in the evening for one week ( 100/200 started on 09/24) , and then 200 mg twice daily thereafter. -Post LP and CTA brain on 09/16/16. -findings and plan were discussed with neuro consult (Dr. Jara) by prior hospitalist on 09/17/16 . Neuro reviewed these findings with [facility] neurology. # Acute dysphagia. Likely due to anoxic brain injury noted above. Present on admission. - patient passed sim swallow eval, will continue tube feeds in addition to sim diet - Nutrition to reevaluate calorie needs - PEG , which was an option initially, however considerig his improvement, will hold off - will continue sim diet , and tube feeds for now. # Mild acute hypernatremia, not present on admission, active. - Appreciate nephrology consult. Will followup with recs -was on DDAVP mcg IV bid .switched to nasal DDVAP 20mch hs per nephrology. Plan to continue upon discharge. Plan to follow with nephrology in 3 weeks . # Acute Kidney Injury requiring dialysis, present on admission. Resolved - Cr on admission at 3.52 and increasing after admission. Unknown history of kidney injury. - Hemodialysis done daily starting 08/25/16 and then stopped. No longer on hemodialysis and catheter removed - initially treated with Free water flushes 300 ml q 4 hr. - Continue DDAVP for now # Acute Cholecystitis, present on admission. Resolved - Acute cholecystitis based on HIDA scan and abdominal CT. - Gen. surgery was consulted, Dr. Dash as intial thought of CCK. Upon follow up MRCP was negative for Acute Pancreatitis and Chronic cholecystitis. - Resolved cholelithiasis w/o choledocholithiasis. - TPN stopped on 09/06/16 as this was thought to be worsening cholecystitis and pancreatitis. # Acute Rhabdomyolysis, present on admission, [place] [address]. Likely secondary to being stationary # Acute stage II ulcers in the buttock areas, present on admission. - Continue with wound care and supportive care # History of alcohol dependence - No need to institute CIWA protocol at this time # History of drug dependence - Known user of cocaine and ice - Per family, last known use is around 5 months ago. Dispo: Prognosis guarded, however considering patient's age, and improvement, patient may survive longer than expected. Family wants to take him to [place] in a month Plan is to arrange support (nutrition and PT) at home. GI Prophylaxis: Not indicated (Patient extubated) VTE Prophylaxis: Sub-Q Heparin (Unfractionated), SCDs VTE Mechanical Devices: Intermittant Pneumatic CD Resuscitation Status: CPR: Attempt Resuscitation ( is ADM) Time spent 35 mins Ramón Hart MD Oct 06, 2016 11:18
--- NOTE | 2016-10-06 12:57 | NUR ---
Apneic Episodes Noted this am that pt appears to have some sleep apnea, pt placed on continuous pulse ox. Pt does desat intermittently r/t apnea into the mid 80s for about 1min then quickly returns to high 90's.
--- NOTE | 2016-10-06 16:30 | NUR ---
NUTRITION FOLLOW UP: ASSESS: 41 YO male with anoxic brain injury. Pt is more responsive today per MD note, has been afebrile >48 hours and WBC are trending downward. Pt was started on a stimulation diet on 10/04. Consult received regarding residual of 100 mL s/p bolus feeds and water flushes, continue current TF bolus schedule. PEG is currently on hold to see if pt will be able to progress with swallowing. PMHx: ETOH abuse. DIET: Stimulation. PO intake of bites - 50% of meals. NUTRITION SUPPORT: Jevity 1.5~bolus of 400 mL 4 times per day, with 25 mL H2O flush before and after each bolus. Also 400 ML H2O bolus 4 times per day. TF and H2O bolus providing 2400 kcals, 102 g protein and 3016 ml free H20 per day. Fluids provided from flush dose and bolus dose will be the same volume as nephrology has ordered (300 mL every 4 hours). LABS: Reviewed. Alb 3.1, ALT 79. MEDICATIONS: Reviewed. GI: BM x 2 (10/05). SKIN: Wounds healed per wound care note. ANTHROPOMETRICS: Current Wt: (09/29)-- 87.3 kg. Admit wt: 95.1 kg. IBW: 72.7 kg ESTIMATED NEEDS: Calories: 5764-4518 kcal/day (25-30 kcal/kg BW) Protein: 85-110 g protein (1.2-1.5 g/kg BW IBW) Fluid: Approx. ~5618-2559 mL (25-35 mL/kg BW) but fluids per nephrology at this time. NUTRITION DIAGNOSIS: 1) Inadequate oral intake related to inability to consume sufficient energy due to cognition, as evidenced by NPO/stimulation diet status - IMPROVED. 2.) Chewing / swallowing difficulties related to anoxic brain injury as evidenced by current need for stimulation diet, ST following. INTERVENTION: 1.) Continue current bolus tube feeding regimen at this time. 2.) Continue to advance diet as able per ST recommendations, 3.) Low cost formula options researched, provided to [employer] on 09/29, please see previous in-depth RD note. MONITOR/EVALUATE: Enteral feeding tolerance, diet advancement / tolerance, labs, weights, nutrition status. Follow per high nutrition risk guidelines.
--- NOTE | 2016-10-06 17:13 | NUR ---
spiritual care: follow up--pedal assembler updated, involved per family's request, updated priest Fr Toan Clancy about pt's medical plan and ascertained his availability for continued spiritual care. Fr Joya aware and investigating possible supports from [facility]/community as plan for pt's discharge home with hospice unfolds.
[2016-10-06 18:01] VITALS: BP 123/87; PULSE 88; RESP 18; O2SAT 98
[2016-10-06 20:38] VITALS: BP 119/79; PULSE 89; RESP 16; O2SAT 99
[2016-10-06] MEDS: Desmopressin 100 mCg/mL 5 mL Nasal Spray NASAL SCH (20:59)
[2016-10-07] MEDS: Heparin 5,000 Unit/mL Inj SUBQ SCH ×3 (00:26→17:30)
[2016-10-07 00:38] VITALS: BP 126/82; PULSE 87; RESP 16; O2SAT 99
[2016-10-07 06:00] VITALS: BP 118/79; PULSE 96; RESP 16; O2SAT 98
[2016-10-07 08:45] VITALS: BP 118/71; PULSE 102; RESP 18; O2SAT 95
[2016-10-07] MEDS: AMANTADINE 10 MG/ML TUBE SCH ×2 (10:22→22:01)
--- NOTE | 2016-10-07 11:49 | PROG NOTE ---
[address] [address] PROGRESS NOTE PATIENT: SANDY SOAS : 1975 MR#: [id number] ADMIT: 08/23/2016 JOB ID: [id number] DATE: 10/07/2016 INFECTIOUS DISEASE FOLLOWUP NOTE: REASON FOR FOLLOWUP: Continued fever and leukocytosis in a patient status post anoxic brain injury. INTERVAL HISTORY: Over the past 24 hours the patient has had a fairly remarkable improvement. He is now speaking longer phrases and apparently early this morning was even making jokes. Additionally he has now started to eat and his has been feeding him and he has been able to swallow. It has been reported that he was able to move his left hand and perhaps his left foot briefly, but that has not been confirmed, but certainly his mental status seems to be improving as is his swallowing ability. There has been no additional report of fever. This morning the patient was interviewed with his present. He is not answering questions directly but he does follow commands and is obviously awake and enjoying the food he is being fed. PHYSICAL EXAMINATION: Reveals an afebrile gentleman who is being spoon-fed cereal. He has been afebrile now for a total of four days. His current temp 37.3, pulse 102, respiratory rate 18, blood pressure 118/71. He is saturating well on room air. His eyes are open. There is no evidence of conjunctivitis. He tracks appropriately. He still has an NG tube but now he is starting to eat. His lungs are quite clear. Cardiac tones without murmur. Abdomen benign. His extremities are still flaccid to my exam. LABORATORIES: Include a white count which is slowly dropping; it is now 11,400 with normal diff. His creatinine is less than 0.3. His LFTs normal, except for an ALT of 56. Recall that he had a mildly elevated lipase a few days ago. We have not repeated that study. His crypto antigen was negative. All cultures remain negative. IMAGING: Our most recent imaging was a chest CT, now done over a week ago, which showed an improving left-sided pulmonary infiltrate. IMPRESSION: At this point the patient has had a prolonged period off antibiotics and continues to have no fever and no physical sign of infection. He still has a mild leukocytosis which is slowly improving. There was evidence of a slightly elevated lipase a few days ago, which could be the cause of this elevated white count, which is only 11,000 at this point. RECOMMENDATIONS: 1. No antibiotics. 2. ID will go ahead and sign off at this time as there are no active ID issues. Please do not hesitate to call me as new issues or problems arise. Thank you very much.
--- NOTE | 2016-10-07 13:05 | PCM.PNMED ---
Subjective Date of Service Oct 07, 2016 Subjective Patient seen and examined today. Stays alert, answers simple questions. Tolerating oral feeds. Discussed with family again, with an spanish interpreter, about intermediate card tender goals and plan regarding his care. mentioned that her uncle, who is the decision maker, is flying in from [place] on , and based on his assessment and discussion with family, will decide if patient stays in [facility] or goes to [place]. Patient's 's decision is split between uncle and cousins/relatives here. said she wants to look into any possible options to get support at home. She is willing to get an insurance if possible. Family is willing to weight in costs required for support. I explained her, at this time, it may be just nutrition and PT, however intermediate card tender, complications may arise : infections, PEs etc., she said she understands, and hence she knows that its important to get a good plan for him in place. Exam Vital Signs Vital Sign - Last Date Time Temp Pulse Resp B/P Pulse Ox O2 Delivery O2 Flow Rate FiO2 10/07/16 08:45 37.3 102 18 118/71 95 Room Air Intake and Output 10/06/16 10/06/16 10/07/16 Cumulative From/Thru 15:00 23:00 07:00 08/23/16 05:20 - 10/06/16 18:22 Intake Total 1200 ml 830472 ml Output Total 187408 ml Balance 1200 ml 68820 ml Intake Oral 560 ml IV Total 57924 ml Tube Feeding 600 ml 65252 ml TPN/PPN 1526 ml Tube Irrigant 600 ml 24820 ml Output Urine Total 167172 ml Stool Total 68977 ml Gastric Drainage Total 1070 ml Ultrafiltrate 4700 ml Other 330 ml # Voids 2 2 28 # Bowel Movements 30 Exam General: No distress,NG tube in place Head: Normal Eyes: Scleral Anicteric Nose: Mucous Membr Moist/[place] Mouth: Mucous Membr Moist/[place] Neck: Supple Chest & Lungs: ronchi on lower chest bilaterally Cardiovascular: Regular Rate/Rhythm Pulses: NL DP, PT Extremities: No cyanosis/clubbing/edema bilat stage 1 sacral decub,no evidence of infection Neurological: alert and oriented X 0, non verbal mostly . Follows command partially now. Tracks at times Lab and Diagnostics Result Diagram: 10/06/16 0540 10/07/16 0591 Microbiology Blood cultures pending MRSA swab pending X-Rays, CTs and MRIs CT BRAIN WITHOUT CONTRAST IMPRESSION: No acute disease. Dictated by: Hemant Gallegos M.D. on 08/23/2016 CT BRAIN WITHOUT CONTRAST IMPRESSION: 1. Diffuse bilateral hypodensity of the globus pallidus. This is a new finding when compared with the study dated 08/23/16. Differential considerations include anoxic injury, carbon monoxide neurotoxicity, excessive alcohol ingestion, and methanol or ethylene glycol ingestion. Dictated by: Dinora Kang M.D. 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 Dictated by: Jacob Mosqueda M.D. on 08/28/2016 MRI STROKE PROTOCOL IMPRESSION: BRAIN MRI: Continued worsening of ischemic injury to the brain parenchyma, symmetric bilaterally, and best seen in the deep white matter of the lentiform nuclei, the wolfe radiata, and the centrum semiovale. No associated hemorrhage. BRAIN MR ANGIOGRAM: No acute disease to the intracranial arterial vasculature. NECK MR ANGIOGRAM: Normal cervical MR angiogram. The estimate of stenosis included in the report of the imaging study was calculated using the NASCET method Dictated by: Jack Padilla M.D. on 09/15/2016 CT CHEST WITHOUT CONTRAST IMPRESSION: Small basal left pleural effusion is unchanged, with associated left lower lobe compressive atelectasis. Superimposed pneumonia therefore cannot be excluded. Dictated by: Binh Ochoa M.D. on 09/07/2016 at 13:47 US RENAL SONOGRAM IMPRESSION: No hydronephrosis. Right renal cyst. Dictated by: Shobha Vale M.D. on 08/24/2016 US ABDOMEN, LIMITED IMPRESSION: Cholelithiasis, without justin gallbladder wall thickening to suggest acute cholecystitis at this time. Dictated by: Binh Ochoa M.D. on 09/07/2016 MR ABDOMEN MRCP IMPRESSION: 1. Markedly limited study due to motion artifact. 2. Cholelithiasis without evidence of cholecystitis. 3. No biliary ductal dilatation or definite choledocholithiasis. 4. No peripancreatic edema to suggest pancreatitis an MRI. No discrete pseudocyst identified. Dictated by: Bruce Valadez M.D. on 09/08/2016 at 17:47 US ABDOMEN IMPRESSION: 1. Cholelithiasis. 2. Mild gallbladder wall thickening. Acute cholecystitis cannot be excluded. 3. Echogenic liver. Finding typically represents fatty infiltration; however, finding is nonspecific and correlation with clinical and laboratory findings is recommended to exclude other etiologies including hepatic cirrhosis. 4. Slightly echogenic right kidney suspicious for developing medical renal disease. Please correlate with clinical and laboratory data. Dictated by: Swathi Jimenes MD, PhD on 08/29/2016 US ABDOMEN, LIMITED IMPRESSION: Cholelithiasis, without justin gallbladder wall thickening to suggest acute cholecystitis at this time. Dictated by: Binh Ochoa M.D. on 09/07/2016 X-RAY CHEST ONE VIEW, PORTABLE IMPRESSION: No acute disease is seen a semiupright portable chest. Tubes are considered appropriate radiographically. Dictated by: Hemant Gallegos M.D. on 08/23/2016 X-RAY CHEST ONE VIEW, PORTABLE IMPRESSION: Support lines as above. Otherwise, no acute pulmonary process. Dictated by: Shobha Vale M.D. on 08/24/2016 X-RAY CHEST ONE VIEW, PORTABLE IMPRESSION: No acute cardiopulmonary disease process. Dictated by: Swathi Jimenes MD, PhD on 08/25/2016 X-RAY CHEST ONE VIEW, PORTABLE IMPRESSION: 1. Left basilar atelectasis. Otherwise lungs are clear. 2. ET and enteric tubes. Dictated by: Jacob Mosqueda M.D. on 08/27/2016 at 9:53 X-RAY CHEST ONE VIEW, PORTABLE IMPRESSION: Stable left basilar atelectasis and support lines. Dictated by: Jacob Mosqueda M.D. on 08/28/2016 at 7:54 Date of Service: 09/15/16 1757 PROCEDURE: MRI STROKE PROTOCOL ([id number]) IMPRESSION: BRAIN MRI: Continued worsening of ischemic injury to the brain parenchyma, symmetric bilaterally, and best seen in the deep white matter of the lentiform nuclei, the wolfe radiata, and the centrum semiovale. No associated hemorrhage. BRAIN MR ANGIOGRAM: No acute disease to the intracranial arterial vasculature. NECK MR ANGIOGRAM: Normal cervical MR angiogram. The estimate of stenosis included in the report of the imaging study was calculated using the NASCET method Dictated by: Jack Padilla M.D. on 09/15/2016 at 21:36 Approved by: Jack Padilla M.D. on 09/15/2016 at 21:42 Additional Diagnostics ABG DateTimeAnalyzed 10:20:00 -_ pH ____7.354 - 7.350 7.450 pCO2 ___31.5__ -mmHg 35.0 45.0 pO2 160 -mmHg 69.0 116 HCO3- ___17.1__ -mmol/L 22.0 26.0 FIO2 ___45.0__ -% PRVC 20 - PEEP ____8.0__ -cmH2O Assessment & Plan 41 year old male with known history of alcohol and drug use presented unresponsive after being found with vomit around him, sedated and intubated for acute hypoxemic respiratory failure secondary to aspiration for 5 days and extubated on hospital day 6 following successful spontaneous breathing trial. #Leukocytosis + fever - improving , afebrile > 48 hours - ID on board, appreciate recs # Acute anoxic Brain Injury, present on admission. Ongoing , significant improvement - patient seems to be comprehending with whats going on in his surroundings and responding appropriately, much improvement from his earlier state - Secondary to aspiration and intoxication. Patient had large volume of vomit suctioned out in the ED. initial toxicology screen done only for salycilate, alcohol and acetaminophen which is unremarkable - Initial EEG showed evidence of slowing but no other abnormalities to suggest that the patient is having clinical seizures causing his symptoms. - Intubated on 08/23/16, Extubated on 08/28/16. - Repeat MRI of brain on 09/15/16 showing: "Continued worsening of ischemic injury to the brain parenchyma, symmetric bilaterally" - Anoxic brain injury and its progression is most likely diagnosis at this time. However, given no obvious source of infection and remote likelihood of vasculitis, per discussion with Dr. Jara a trial of steroid therapy ( Prednisone 80mg daily x 3 days) given on 09/17/16 to see if we will achieve any significant improvement in neuro symptoms. No obvious improvement noted with 3 days of Prednisone treatment. - Per neuro recommendation increased Amantadine to 100mg bid on 09/20/16 - Increase amantadine gradually up to a goal dose of 400 mg daily. 100 mg twice a day for one week, then 100 mg in the morning and 200 mg in the evening for one week ( 100/200 started on 09/24) , and then 200 mg twice daily thereafter. -Post LP and CTA brain on 09/16/16. -findings and plan were discussed with neuro consult (Dr. Jara) by prior hospitalist on 09/17/16 . Neuro reviewed these findings with [facility] neurology. # Acute dysphagia. Likely due to anoxic brain injury noted above. Present on admission. - patient passed sim swallow eval, will continue tube feeds in addition to sim diet - Nutrition to reevaluate calorie needs - PEG , which was an option initially, however considerig his improvement, will hold off - will continue sim diet , and tube feeds for now. # Mild acute hypernatremia, not present on admission, active. - Appreciate nephrology consult. Will followup with recs -was on DDAVP mcg IV bid .switched to nasal DDVAP 20mch hs per nephrology. Plan to continue upon discharge. Plan to follow with nephrology in 3 weeks . # Acute Kidney Injury requiring dialysis, present on admission. Resolved - Cr on admission at 3.52 and increasing after admission. Unknown history of kidney injury. - Hemodialysis done daily starting 08/25/16 and then stopped. No longer on hemodialysis and catheter removed - initially treated with Free water flushes 300 ml q 4 hr. - Continue DDAVP for now # Acute Cholecystitis, present on admission. Resolved - Acute cholecystitis based on HIDA scan and abdominal CT. - Gen. surgery was consulted, Dr. Dash as intial thought of CCK. Upon follow up MRCP was negative for Acute Pancreatitis and Chronic cholecystitis. - Resolved cholelithiasis w/o choledocholithiasis. - TPN stopped on 09/06/16 as this was thought to be worsening cholecystitis and pancreatitis. # Acute Rhabdomyolysis, present on admission, [place] [id number]. Likely secondary to being stationary # Acute stage II ulcers in the buttock areas, present on admission. - Continue with wound care and supportive care # History of alcohol dependence - No need to institute CIWA protocol at this time # History of drug dependence - Known user of cocaine and ice - Per family, last known use is around 5 months ago. Dispo: Plan as discussed with the family and noted above in subjective. GI Prophylaxis: Not indicated (Patient extubated) VTE Prophylaxis: Sub-Q Heparin (Unfractionated), SCDs VTE Mechanical Devices: Intermittant Pneumatic CD Resuscitation Status: CPR: Attempt Resuscitation ( is ADM) Ramón Hart MD Oct 07, 2016 13:05
[2016-10-07 14:00] VITALS: BP 118/82; PULSE 100; RESP 18; O2SAT 97
--- NOTE | 2016-10-07 15:06 | PCM.PALLBR ---
Palliative Brief Note Date of Service Oct 07, 2016 . Medicine notes reviewed. Patient making modest progress- diet/PO intake advancing. Palliative medicine will sign off at this time. Please contact us if we may be of further assistance. Louie Bowman MD Oct 07, 2016 15:06
--- NOTE | 2016-10-07 16:52 | NUR ---
Social Work Note: Continued Discharge Planning Data& Assessment: Pt was discussed in multidisciplinary rounds. Pt is not eligible for Hospice. Pt still has dobhoff placed, MD continuing to evaluate pt for most appropriate method for nutrient delivery. Pt improving over the weekend in terms of his ability to speak words occasionally and was able to eat some applesauce. Per MD, pt is still not able to participate in meaningful conversation at this point in time and is still an aspiration risk. Per MD in multidisciplinary rounds, new PT order to be placed to strengthen pt and to complete strengthening exercise teaching to pt family to complete with pt outside of the PT evaluations. PRODUCT TECHNOLOGY SCIENTIST reminded MD of resources and recommendations previously obtained by PT, presales engineer and dietary last week. Per Dietary, pt family may be able to purchase Glucerna or Ensure at a lower cost from the grocery store in place of a formal formula through infusion company that is more expensive for the family. PRODUCT TECHNOLOGY SCIENTIST also highlighted the EHOB mattress recommended by wound care therapy that the family can obtain for a little over $100 to be placed on any type of bed to prevent wound formations. Pt family is also still discussing possibility of bringing pt home vs. taking him back to [place]. PRODUCT TECHNOLOGY SCIENTIST to follow up with pt family regarding the supplies previously recommended by PT, powder line repairer and dietary pending final decision regarding pt feeding tube and any progress made with PT. Per MD request, PRODUCT TECHNOLOGY SCIENTIST confirmed with financial services that without a social security number, pt family is unable to purchase insurance coverage for the pt even if they are willing to pay privately. 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 Plan: Anticipated discharge home with family support and family caregiving. PRODUCT TECHNOLOGY SCIENTIST to follow up with pt family regarding the supplies previously recommended by PT, powder line repairer and dietary pending final decision regarding pt feeding tube and any progress made with PT. MD denies any other needs at this time. PRODUCT TECHNOLOGY SCIENTIST to continue to follow. JEFF Swan
--- NOTE | 2016-10-07 17:01 | NUR ---
Shift Report: Patient remains more alert and interactive with family as he has been for the past 2 days. His attention does wax and wane. Speech and physical therapy reordered for giving patient care and recommendations; family encouraged to keep moving patient in bed. Tolerating stim diet well with 's feeding. Does grimace in pain with mvmt, no spontaneous movement seen. spoke of getting patient on insurance when he was out of the hospital and that there is an uncle coming next month to assess Santiago and make decisions about his care. Dr. Hart at with assistant chief nursing officer reminded that she is primary caregiver and to think about where he might get the very best care before moving him down to [place]. Plan to optimize eating for home discharge.
[2016-10-07 18:22] VITALS: BP 117/81; PULSE 92; RESP 18; O2SAT 98
[2016-10-07] MEDS: Desmopressin 100 mCg/mL 5 mL Nasal Spray NASAL SCH (22:02)
[2016-10-07 23:00] VITALS: RESP 18; O2SAT 98
[2016-10-08] MEDS: Heparin 5,000 Unit/mL Inj SUBQ SCH ×3 (02:11→17:23)
[2016-10-08 02:23] VITALS: BP 115/81; PULSE 83; RESP 18; O2SAT 98
--- NOTE | 2016-10-08 05:07 | NUR ---
Conversation Pts had a 1 hour conversation with me discussing how she is processing his progress, what options family has been trying to get her to decide (home vs. [place]), talked about her children, their plans as a couple prior to this event, her frustrations and feelings about the situation, and where to go from here. Therapeutic listening, shared my understanding of hospice from working there vs. views of hospice in [place]. She said she wanted to talk to the social work specialist again about insurance; I put that on the white board and will forward the message to day shift. also requested that turns be done q3hr during night so patient could rest uninterrupted.
[2016-10-08] MEDS: AMANTADINE 10 MG/ML TUBE SCH ×2 (07:58→21:44)
[2016-10-08 08:00] VITALS: PULSE 96; RESP 16; O2SAT 96
[2016-10-08 12:20] VITALS: BP 115/70; PULSE 98; RESP 18; O2SAT 98
--- NOTE | 2016-10-08 13:06 | PCM.PNMED ---
Subjective Date of Service Oct 08, 2016 Subjective Patient is in bed, looks comfortable. Exam Vital Signs Vital Sign - Last Date Time Temp Pulse Resp B/P Pulse Ox O2 Delivery O2 Flow Rate FiO2 10/08/16 12:20 36.9 98 18 115/70 98 Room Air Intake and Output 10/07/16 10/07/16 10/08/16 Cumulative From/Thru 15:00 23:00 07:00 08/23/16 05:20 - 10/08/16 06:37 Intake Total 3000 ml 600 ml 1459 ml 826738 ml Output Total 613832 ml Balance 3000 ml 600 ml 1459 ml 99285 ml Intake Oral 560 ml IV Total 0 ml 50208 ml Tube Feeding 1500 ml 300 ml 859 ml 52192 ml TPN/PPN 1526 ml Tube Irrigant 1500 ml 300 ml 600 ml 95418 ml Output Urine Total 105519 ml Stool Total 25733 ml Gastric Drainage Total 1070 ml Ultrafiltrate 4700 ml Other 330 ml # Voids 2 2 32 # Bowel Movements 1 0 31 Exam PHYSICAL EXAM: General: No distress,NG tube in place Head: Normal Eyes: Scleral Anicteric Nose: Mucous Membr Moist/[place] Mouth: Mucous Membr Moist/[place] Neck: Supple Chest & Lungs: ronchi bilaterally Cardiovascular: Regular Rate/Rhythm Pulses: NL DP, PT Extremities: No cyanosis/clubbing/edema bilat , stage 1 sacral decub,no evidence of infection Neurological: alert and oriented X 0, non verbal mostly . Follows command partially. REVIEW OF SYSTEMS: - unable to obtain. Lab and Diagnostics Result Diagram: 10/06/16 0540 10/07/16 0545 Microbiology Blood cultures pending MRSA swab pending X-Rays, CTs and MRIs CT BRAIN WITHOUT CONTRAST IMPRESSION: No acute disease. Dictated by: Hemant Gallegos M.D. on 08/23/2016 CT BRAIN WITHOUT CONTRAST IMPRESSION: 1. Diffuse bilateral hypodensity of the globus pallidus. This is a new finding when compared with the study dated 08/23/16. Differential considerations include anoxic injury, carbon monoxide neurotoxicity, excessive alcohol ingestion, and methanol or ethylene glycol ingestion. Dictated by: Dinora Kang M.D. 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 Dictated by: Jacob Mosqueda M.D. on 08/28/2016 MRI STROKE PROTOCOL IMPRESSION: BRAIN MRI: Continued worsening of ischemic injury to the brain parenchyma, symmetric bilaterally, and best seen in the deep white matter of the lentiform nuclei, the wolfe radiata, and the centrum semiovale. No associated hemorrhage. BRAIN MR ANGIOGRAM: No acute disease to the intracranial arterial vasculature. NECK MR ANGIOGRAM: Normal cervical MR angiogram. The estimate of stenosis included in the report of the imaging study was calculated using the NASCET method Dictated by: Jack Padilla M.D. on 09/15/2016 CT CHEST WITHOUT CONTRAST IMPRESSION: Small basal left pleural effusion is unchanged, with associated left lower lobe compressive atelectasis. Superimposed pneumonia therefore cannot be excluded. Dictated by: Binh Ochoa M.D. on 09/07/2016 at 13:47 US RENAL SONOGRAM IMPRESSION: No hydronephrosis. Right renal cyst. Dictated by: Shobha Vale M.D. on 08/24/2016 US ABDOMEN, LIMITED IMPRESSION: Cholelithiasis, without justin gallbladder wall thickening to suggest acute cholecystitis at this time. Dictated by: Binh Ochoa M.D. on 09/07/2016 MR ABDOMEN MRCP IMPRESSION: 1. Markedly limited study due to motion artifact. 2. Cholelithiasis without evidence of cholecystitis. 3. No biliary ductal dilatation or definite choledocholithiasis. 4. No peripancreatic edema to suggest pancreatitis an MRI. No discrete pseudocyst identified. Dictated by: Bruce Valadez M.D. on 09/08/2016 at 17:47 US ABDOMEN IMPRESSION: 1. Cholelithiasis. 2. Mild gallbladder wall thickening. Acute cholecystitis cannot be excluded. 3. Echogenic liver. Finding typically represents fatty infiltration; however, finding is nonspecific and correlation with clinical and laboratory findings is recommended to exclude other etiologies including hepatic cirrhosis. 4. Slightly echogenic right kidney suspicious for developing medical renal disease. Please correlate with clinical and laboratory data. Dictated by: Swathi Jimenes MD, PhD on 08/29/2016 US ABDOMEN, LIMITED IMPRESSION: Cholelithiasis, without justin gallbladder wall thickening to suggest acute cholecystitis at this time. Dictated by: Binh Ochoa M.D. on 09/07/2016 X-RAY CHEST ONE VIEW, PORTABLE IMPRESSION: No acute disease is seen a semiupright portable chest. Tubes are considered appropriate radiographically. Dictated by: Hemant Gallegos M.D. on 08/23/2016 X-RAY CHEST ONE VIEW, PORTABLE IMPRESSION: Support lines as above. Otherwise, no acute pulmonary process. Dictated by: Shobha Vale M.D. on 08/24/2016 X-RAY CHEST ONE VIEW, PORTABLE IMPRESSION: No acute cardiopulmonary disease process. Dictated by: Swathi Jimenes MD, PhD on 08/25/2016 X-RAY CHEST ONE VIEW, PORTABLE IMPRESSION: 1. Left basilar atelectasis. Otherwise lungs are clear. 2. ET and enteric tubes. Dictated by: Jacob Mosqueda M.D. on 08/27/2016 at 9:53 X-RAY CHEST ONE VIEW, PORTABLE IMPRESSION: Stable left basilar atelectasis and support lines. Dictated by: Jacob Mosqueda M.D. on 08/28/2016 at 7:54 Date of Service: 09/15/16 1757 PROCEDURE: MRI STROKE PROTOCOL ([id number]) IMPRESSION: BRAIN MRI: Continued worsening of ischemic injury to the brain parenchyma, symmetric bilaterally, and best seen in the deep white matter of the lentiform nuclei, the wolfe radiata, and the centrum semiovale. No associated hemorrhage. BRAIN MR ANGIOGRAM: No acute disease to the intracranial arterial vasculature. NECK MR ANGIOGRAM: Normal cervical MR angiogram. The estimate of stenosis included in the report of the imaging study was calculated using the NASCET method Dictated by: Jack Padilla M.D. on 09/15/2016 at 21:36 Approved by: Jack Padilla M.D. on 09/15/2016 at 21:42 Additional Diagnostics [facility] DateTimeAnalyzed 10:20:00 -_ pH ____7.354 - 7.350 7.450 pCO2 ___31.5__ -mmHg 35.0 45.0 pO2 160 -mmHg 69.0 116 HCO3- ___17.1__ -mmol/L 22.0 26.0 FIO2 ___45.0__ -% PRVC 20 - PEEP ____8.0__ -cmH2O Assessment & Plan 41 year old male with known history of alcohol and drug use presented unresponsive after being found with vomit around him, sedated and intubated for acute hypoxemic respiratory failure secondary to aspiration for 5 days and extubated on hospital day 6 following successful spontaneous breathing trial. #Leukocytosis + fever - improving - ID on board, appreciate recs # Acute anoxic Brain Injury, present on admission. Ongoing , significant improvement - patient seems to be comprehending with whats going on in his surroundings and responding appropriately - Secondary to aspiration and intoxication. Patient had large volume of vomit suctioned out in the ED. initial toxicology screen done only for salycilate, alcohol and acetaminophen which is unremarkable - Initial EEG showed evidence of slowing but no other abnormalities to suggest that the patient is having clinical seizures causing his symptoms. - Intubated on 08/23/16, Extubated on 08/28/16. - Repeat MRI of brain on 09/15/16 showing: "Continued worsening of ischemic injury to the brain parenchyma, symmetric bilaterally" - Anoxic brain injury and its progression is most likely diagnosis at this time. However, given no obvious source of infection and remote likelihood of vasculitis, per discussion with Dr. Jara a trial of steroid therapy ( Prednisone 80mg daily x 3 days) given on 09/17/16 to see if we will achieve any significant improvement in neuro symptoms. No obvious improvement noted with 3 days of Prednisone treatment. - Per neuro recommendation increased Amantadine to 100mg bid on 09/20/16 - Increase amantadine gradually up to a goal dose of 400 mg daily. 100 mg twice a day for one week, then 100 mg in the morning and 200 mg in the evening for one week ( 100/200 started on 09/24) , and then 200 mg twice daily thereafter. -Post LP and CTA brain on 09/16/16. -findings and plan were discussed with neuro consult (Dr. Jara) by prior hospitalist on 09/17/16 . Neuro reviewed these findings with [facility] neurology. # Acute dysphagia. Likely due to anoxic brain injury noted above. Present on admission. - patient passed sim swallow eval, will continue tube feeds in addition to sim diet - Nutrition to reevaluate calorie needs - PEG , which was an option initially, however considerig his improvement, will hold off - will continue sim diet , and tube feeds for now. # Mild acute hypernatremia, not present on admission, resloved - Appreciate nephrology consult. Will followup with recs -was on DDAVP mcg IV bid .switched to PO DDVAP 20mch hs per nephrology. Plan to continue upon discharge. Plan to follow with nephrology in 3 weeks . # Acute Kidney Injury requiring dialysis, present on admission. Resolved - Cr on admission at 3.52 and increasing after admission. Unknown history of kidney injury. - Hemodialysis done daily starting 08/25/16 and then stopped. No longer on hemodialysis and catheter removed - initially treated with Free water flushes 300 ml q 4 hr. - Continue DDAVP for now # Acute Cholecystitis, present on admission. Resolved - Acute cholecystitis based on HIDA scan and abdominal CT. - Gen. surgery was consulted, Dr. Dash as intial thought of CCK. Upon follow up MRCP was negative for Acute Pancreatitis and Chronic cholecystitis. - Resolved cholelithiasis w/o choledocholithiasis. - TPN stopped on 09/06/16 as this was thought to be worsening cholecystitis and pancreatitis. # Acute Rhabdomyolysis, present on admission, [place] [id number]. Likely secondary to being stationary # Acute stage II ulcers in the buttock areas, present on admission. - Continue with wound care and supportive care # History of alcohol dependence - No need to institute CIWA protocol at this time # History of drug dependence - Known user of cocaine and ice - Per family, last known use is around 5 months ago. GI Prophylaxis: Not indicated (Patient extubated) VTE Prophylaxis: Sub-Q Heparin (Unfractionated), SCDs VTE Mechanical Devices: Intermittant Pneumatic CD Resuscitation Status: CPR: Attempt Resuscitation ( is ADM) Farshad Wells MD Oct 08, 2016 13:06
[2016-10-08 16:55] VITALS: BP 118/85; PULSE 91; RESP 18; O2SAT 98
--- NOTE | 2016-10-08 17:39 | NUR ---
Social Work: Brief Note SW met with patient and family ( and sister) to discuss options for insurance. Prior to visit, SW reviewed previous SW notes from past few days. Patient was discussed during morning rounds and primary RN informed SW that had questions. SW met with patient and family. Bur[employer] Elise was present during conversation to assist with translation. SW role explained. informed SW that she was informed that patient could receive insurance as long as family could private pay. SW informed that insurance could not be obtained due to patient not having a SSN. asked if patient would be able to receive physical therapy at a facility upon discharge. SW informed that patient would not be able to discharge to a facility for PT. SW informed that patient does have the option of receiving home health PT once patient is discharged home. Cost for PT would have to be private pay. informed SW that she was informed by another SW of a agency called [facility] that would assist patient with applying for insurance. states that patient's uncle is coming from [place] on 10/26 to assist with paperwork for insurance. SW informed that she would work to obtain additional information on this agency. SW will continue to follow. JEFF Quinones
--- NOTE | 2016-10-08 17:42 | NUR ---
Activity Patient working with PT this pm, seen patient participating slowly and able to follow command. and sister in the room and understood the plans when patient get discharged.
[2016-10-08 21:00] VITALS: BP 123/78; PULSE 105; RESP 18; O2SAT 97
[2016-10-08] MEDS: Desmopressin 100 mCg/mL 5 mL Nasal Spray NASAL SCH (21:44)
--- NOTE | 2016-10-08 22:32 | NUR ---
COMMUNICATION Resumed care at 1900, pt in and out of sleep until 2100. When preparing to provide skin care, pt woke up, RN asked how the patient was, pt replied "familia." RN asked if pt liked the food now, pt again said "familia." Pt tracking, extremities completely flaccid, pt does not follow commands r/t ability to move. Family in room to help with care and make needs known. Per , q3h turns during night to allow pt to sleep.
[2016-10-09] MEDS: Heparin 5,000 Unit/mL Inj SUBQ SCH ×4 (00:44→23:32)
--- NOTE | 2016-10-09 00:46 | NUR ---
TUBE FEEDING At 0030, pt turned and repositioned. Abdomen notably distended, hard on palpation, pt grimaces with minor palpation. Tube feed residual was 75ml. Will hold tube feed rest of night and reevaluate in morning.
[2016-10-09 09:00] VITALS: BP 114/78; PULSE 93; RESP 16; O2SAT 98
[2016-10-09] MEDS: AMANTADINE 10 MG/ML TUBE SCH ×2 (09:02→20:56)
--- NOTE | 2016-10-09 09:54 | NUR ---
Communication/Nutrition Patient responding to questions and interacting with minimal answers like "what, yes, and some nod during feeding. Patient was also noted to be more awake and alert. Passive range of motion encouraged, involved. Message left to Fanta Koroma, for evaluation of patients current nutrition plan.
--- NOTE | 2016-10-09 14:40 | PCM.PNMED ---
Subjective Date of Service Oct 09, 2016 Subjective Patient is in bed, resting. Responding to voice and pain similarly. Mostly nonverbal though sometimes can attempt to say one or 2 words. Exam Vital Signs Vital Sign - Last Date Time Temp Pulse Resp B/P Pulse Ox O2 Delivery O2 Flow Rate FiO2 10/09/16 09:00 36.5 93 16 114/78 98 Room Air Intake and Output 10/08/16 10/08/16 10/09/16 Cumulative From/Thru 15:00 23:00 07:00 08/23/16 05:20 - 10/09/16 06:34 Intake Total 1000 ml 223 ml 445443 ml Output Total 049377 ml Balance 1000 ml 223 ml 39072 ml Intake Oral 100 ml 660 ml IV Total 30 ml 04539 ml Tube Feeding 300 ml 193 ml 27587 ml TPN/PPN 1526 ml Tube Irrigant 600 ml 25576 ml Output Urine Total 758660 ml Stool Total 63041 ml Gastric Drainage Total 1070 ml Ultrafiltrate 4700 ml Other 330 ml # Voids 3 2 37 # Bowel Movements 31 Exam GENERAL: Sleeping, not in distress, HEAD: atraumatic, normocephalic EYES: able to open and close eyelids SKIN: Skin color normal, turgor normal. stage II ulcers in the buttock areas EAR, NOSE, MOUTH, THROAT: Lips, oral mucosa, tongue are moist, pink, no lesions.s. NECK: supple. RESPIRATORY: Lungs clear to auscultation. Good diaphragmatic excursion. CARDIAC: normal S1 and S2; no rubs or gallops; regular rhythm ABDOMEN: Abdomen soft, non-tender. BS normal. No masses or organomegaly. MUSCULOSKELETAL: ROM full, muscles are not tender EXTREMITIES: no pitting edema in LE, no new deformities or skin discoloration. NEURO: Alert, oriented X 0, mostly nonverbal, some moments in fingers noted PULSES: 2+ radial, 2+ carotid REVIEW OF SYSTEMS: Unable to obtain, patient is nonverbal IVs and Medications Medications Reviewed: Medications were reviewed in detail Lab and Diagnostics Result Diagram: 10/06/16 0540 10/07/16 0545 Microbiology Blood cultures pending MRSA swab pending X-Rays, CTs and MRIs CT BRAIN WITHOUT CONTRAST IMPRESSION: No acute disease. Dictated by: Hemant Gallegos M.D. on 08/23/2016 CT BRAIN WITHOUT CONTRAST IMPRESSION: 1. Diffuse bilateral hypodensity of the globus pallidus. This is a new finding when compared with the study dated 08/23/16. Differential considerations include anoxic injury, carbon monoxide neurotoxicity, excessive alcohol ingestion, and methanol or ethylene glycol ingestion. Dictated by: Dinora Kang M.D. 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 Dictated by: Jacob Mosqueda M.D. on 08/28/2016 MRI STROKE PROTOCOL IMPRESSION: BRAIN MRI: Continued worsening of ischemic injury to the brain parenchyma, symmetric bilaterally, and best seen in the deep white matter of the lentiform nuclei, the wolfe radiata, and the centrum semiovale. No associated hemorrhage. BRAIN MR ANGIOGRAM: No acute disease to the intracranial arterial vasculature. NECK MR ANGIOGRAM: Normal cervical MR angiogram. The estimate of stenosis included in the report of the imaging study was calculated using the NASCET method Dictated by: Jack Padilla M.D. on 09/15/2016 CT CHEST WITHOUT CONTRAST IMPRESSION: Small basal left pleural effusion is unchanged, with associated left lower lobe compressive atelectasis. Superimposed pneumonia therefore cannot be excluded. Dictated by: Binh Ochoa M.D. on 09/07/2016 at 13:47 US RENAL SONOGRAM IMPRESSION: No hydronephrosis. Right renal cyst. Dictated by: Shobha Vale M.D. on 08/24/2016 US ABDOMEN, LIMITED IMPRESSION: Cholelithiasis, without justin gallbladder wall thickening to suggest acute cholecystitis at this time. Dictated by: Binh Ochoa M.D. on 09/07/2016 MR ABDOMEN MRCP IMPRESSION: 1. Markedly limited study due to motion artifact. 2. Cholelithiasis without evidence of cholecystitis. 3. No biliary ductal dilatation or definite choledocholithiasis. 4. No peripancreatic edema to suggest pancreatitis an MRI. No discrete pseudocyst identified. Dictated by: Bruce Valadez M.D. on 09/08/2016 at 17:47 US ABDOMEN IMPRESSION: 1. Cholelithiasis. 2. Mild gallbladder wall thickening. Acute cholecystitis cannot be excluded. 3. Echogenic liver. Finding typically represents fatty infiltration; however, finding is nonspecific and correlation with clinical and laboratory findings is recommended to exclude other etiologies including hepatic cirrhosis. 4. Slightly echogenic right kidney suspicious for developing medical renal disease. Please correlate with clinical and laboratory data. Dictated by: Swathi Jimenes MD, PhD on 08/29/2016 US ABDOMEN, LIMITED IMPRESSION: Cholelithiasis, without justin gallbladder wall thickening to suggest acute cholecystitis at this time. Dictated by: Binh Ochoa M.D. on 09/07/2016 X-RAY CHEST ONE VIEW, PORTABLE IMPRESSION: No acute disease is seen a semiupright portable chest. Tubes are considered appropriate radiographically. Dictated by: Hemant Gallegos M.D. on 08/23/2016 X-RAY CHEST ONE VIEW, PORTABLE IMPRESSION: Support lines as above. Otherwise, no acute pulmonary process. Dictated by: Shobha Vale M.D. on 08/24/2016 X-RAY CHEST ONE VIEW, PORTABLE IMPRESSION: No acute cardiopulmonary disease process. Dictated by: Swathi Jimenes MD, PhD on 08/25/2016 X-RAY CHEST ONE VIEW, PORTABLE IMPRESSION: 1. Left basilar atelectasis. Otherwise lungs are clear. 2. ET and enteric tubes. Dictated by: Jacob Mosqueda M.D. on 08/27/2016 at 9:53 X-RAY CHEST ONE VIEW, PORTABLE IMPRESSION: Stable left basilar atelectasis and support lines. Dictated by: Jacob Mosqueda M.D. on 08/28/2016 at 7:54 Date of Service: 09/15/16 1757 PROCEDURE: MRI STROKE PROTOCOL ([id number]) IMPRESSION: BRAIN MRI: Continued worsening of ischemic injury to the brain parenchyma, symmetric bilaterally, and best seen in the deep white matter of the lentiform nuclei, the wolfe radiata, and the centrum semiovale. No associated hemorrhage. BRAIN MR ANGIOGRAM: No acute disease to the intracranial arterial vasculature. NECK MR ANGIOGRAM: Normal cervical MR angiogram. The estimate of stenosis included in the report of the imaging study was calculated using the NASCET method Dictated by: Jack Padilla M.D. on 09/15/2016 at 21:36 Approved by: Jack Padilla M.D. on 09/15/2016 at 21:42 Additional Diagnostics [facility] DateTimeAnalyzed 10:20:00 -_ pH ____7.354 - 7.350 7.450 pCO2 ___31.5__ -mmHg 35.0 45.0 pO2 160 -mmHg 69.0 116 HCO3- ___17.1__ -mmol/L 22.0 26.0 FIO2 ___45.0__ -% PRVC 20 - PEEP ____8.0__ -cmH2O Assessment & Plan 41 year old male with known history of alcohol and drug use presented unresponsive after being found with vomit around him, sedated and intubated for acute hypoxemic respiratory failure secondary to aspiration for 5 days and extubated on hospital day 6 following successful spontaneous breathing trial. Patient developed acute anoxic brain injury secondary to hypoxia.Patient had large volume of vomit suctioned out in the ED. initial toxicology screen done only for salycilate, alcohol and acetaminophen which is unremarkable. Initial EEG showed evidence of slowing but no other abnormalities to suggest that the patient is having clinical seizures causing his symptoms. - Intubated on 08/23/16 , Extubated on 08/28/16. Repeat MRI of brain on 09/15/16 showing: "Continued worsening of ischemic injury to the brain parenchyma, symmetric bilaterally". Given no obvious source of infection and remote likelihood of vasculitis, per discussion with Dr. Jara a trial of steroid therapy (Prednisone 80mg daily x 3 days) given on 09/17/16 to see if we will achieve any significant improvement in neuro symptoms. No obvious improvement noted with 3 days of Prednisone treatment.Neuro reviewed this case with with [facility] neurology. Constipation, distended abdomen - will do Abdominal XR - Bisacodyl PRN Leukocytosis + fever - improving - ID on board, appreciate recs Acute anoxic Brain Injury, Acute dysphagia - patient is responding to voice and pain - patient passed sim swallow eval, will continue tube feeds in addition to sim diet Plan - Amantadine 200 mg bid - c/w PT/OT - consider PEG if oral nutrition is not adequate Mild hypernatremia, - resloved - was on DDAVP mcg IV bid .switched to PO DDVAP 20mch hs per nephrology. Plan to continue upon discharge. Plan to follow with nephrology in 3 weeks . Acute Kidney Injury requiring dialysis, present on admission. Resolved - Cr on admission at 3.52 and increasing after admission. Unknown history of kidney injury. - Hemodialysis done daily starting 08/25/16 and then stopped. No longer on hemodialysis and catheter removed - initially treated with Free water flushes 300 ml q 4 hr. - Continue DDAVP for now Questionable Acute Cholecystitis, based on HIDA scan and abdominal CT. - Resolved - Gen. surgery was consulted, Dr. Dash - MRCP was negative for Acute Pancreatitis and Chronic cholecystitis. - Resolved cholelithiasis w/o choledocholithiasis. - TPN stopped on 09/06/16 as this was thought to be worsening cholecystitis and pancreatitis. Acute Rhabdomyolysis, - resolved Acute stage II ulcers in the buttock areas, present on admission. - Continue with wound care and supportive care History of alcohol dependence - No need to institute CIWA protocol at this time History of drug dependence - Known user of cocaine and ice - Per family, last known use is around 5 months ago. GI Prophylaxis: Not indicated (Patient extubated) VTE Prophylaxis: Sub-Q Heparin (Unfractionated), SCDs VTE Mechanical Devices: Intermittant Pneumatic CD Resuscitation Status: CPR: Attempt Resuscitation ( is ADM) Farshad Wells MD Oct 09, 2016 14:40
[2016-10-09 15:00] VITALS: BP 126/91; PULSE 91; RESP 20; O2SAT 97
--- NOTE | 2016-10-09 16:40 | NUR ---
NUTRITION FOLLOW UP: ASSESS: 41 YO male with anoxic brain injury. Pt notes, abdomen is more firm and distended, likely due to constipation, abdominal x-ray pending. Per RN, ST is requesting MBS for tomorrow to see if diet can be advanced. PMHx: ETOH abuse. DIET: Stimulation. PO intake 50-100% of meals. NUTRITION SUPPORT: ON HOLD UNTIL AFTER ABD X-RAY PER RN. Jevity 1.5~bolus of 400 mL 4 times per day, with 25 mL H2O flush before and after each bolus. Also 400 ML H2O bolus 4 times per day. TF and H2O bolus providing 2400 kcals, 102 g protein and 3016 ml free H20 per day. Fluids provided from flush dose and bolus dose will be the same volume as nephrology has ordered (300 mL every 4 hours). LABS: Reviewed. Glu 113, Alb 3.1. MEDICATIONS: Reviewed. GI: BM x 1 (10/05). SKIN: Wounds healed per wound care note. ANTHROPOMETRICS: Current Wt: (09/29)-- 87.3 kg. Admit wt: 95.1 kg. IBW: 72.7 kg ESTIMATED NEEDS: Calories: 8738-0964 kcal/day (25-30 kcal/kg BW) Protein: 85-110 g protein (1.2-1.5 g/kg BW IBW) Fluid: Approx. ~0372-6240 mL (25-35 mL/kg BW) but fluids per nephrology at this time. NUTRITION DIAGNOSIS: 1) Inadequate oral intake related to inability to consume sufficient energy due to cognition, as evidenced by NPO/stimulation diet status - IMPROVED. 2.) Chewing / swallowing difficulties related to anoxic brain injury as evidenced by current need for stimulation diet, ST following--PERSISTS. INTERVENTION: 1.) Continue current bolus tube feeding regimen once TF can be resumed. 2.) Continue to advance diet as able per ST recommendations. 3.) Low cost formula options researched, provided to FEATHER EDGER on 09/29, please see previous in-depth RD note. MONITOR/EVALUATE: Enteral feeding restart/tolerance, diet advancement / tolerance, labs, weights, nutrition status. Follow per high nutrition risk guidelines.
--- NOTE | 2016-10-09 16:59 | DRSVH ---
PROCEDURE: X-RAY ABDOMEN, ONE VIEW ([id number]) INDICATIONS: abdominal distention TECHNIQUE: One view of the abdomen acquired. COMPARISON: [facility], CT, CT CHEST WO CON, 09/30/2016, 17:08. FINDINGS: Surgical changes and devices: Dobbhoff catheter present with tip projected over the gastric antrum si milar to prior CT scan. Bowel: Bowel gas pattern is normal. Soft tissues: No suspicious abdominal calcifications. Visualized solid organ contours appear normal in size. Bones: No suspicious bony lesions. IMPRESSION: Normal bowel gas pattern. Dictated by: Juma Martinez [facility] Interpreted: Hemant Gallegos MD on 10/09/2016 at 16:48 Approved by: Hemant Gallegos M.D. on 10/09/2016 at 16:57
[2016-10-09 20:45] VITALS: BP 116/80; PULSE 101; RESP 18; O2SAT 96
[2016-10-09] MEDS: Desmopressin 100 mCg/mL 5 mL Nasal Spray NASAL SCH (20:55)
[2016-10-10 04:14] VITALS: BP 125/81; PULSE 107; RESP 17; O2SAT 97
--- NOTE | 2016-10-10 06:03 | NUR ---
Family Teaching Pt. alert, able to make eye contact during conversation, able to answer yes/no questions, follow simple commands such as "open your mouth" during temp. checking, on stimulation diet, tolerating well, helps with feeding, educated on s/s of aspirations, verbalize understanding, VSS afebrile, continues with TF, q3 turn per request, all needs attended.
[2016-10-10 08:00] VITALS: BP 118/83; PULSE 115; RESP 16; O2SAT 96
[2016-10-10] MEDS: AMANTADINE 10 MG/ML TUBE SCH ×2 (10:55→20:32)
[2016-10-10] MEDS: Heparin 5,000 Unit/mL Inj SUBQ SCH ×2 (10:56→16:53)
[2016-10-10 12:39] VITALS: BP 116/82; PULSE 110; RESP 16; O2SAT 99
--- NOTE | 2016-10-10 12:40 | NUR ---
Shift Note: Cares and therapy continue. Turns q2hr/at family's request. Skin protection. Stella continues to feed patient stimulation diet carefully according to precautions she has been taught by speech therapy. Family continues to do PROM frequently. Patient weakly/delayed answers 's questions and did wiggle toes on R foot. Addendum: 10/10/16 at 1621 by RU SANCHEZ RN Brief changes and bathing prn by family and RN. Frequent turns and repositioning for eating.
--- NOTE | 2016-10-10 13:17 | PCM.PNMED ---
Subjective Date of Service Oct 10, 2016 Subjective Patient is in the bed, able to answer yes and no, there is also information that he was able to wiggle his fingers and toes. Patient will have modified barium swallow test to see if he is able to swallow. If he passes this test the NG tube should be removed. Patient will need to be fed. Exam Vital Signs Vital Sign - Last Date Time Temp Pulse Resp B/P Pulse Ox O2 Delivery O2 Flow Rate FiO2 10/10/16 12:39 37.4 110 16 116/82 99 Room Air Intake and Output 10/09/16 10/09/16 10/10/16 Cumulative From/Thru 15:00 23:00 07:00 08/23/16 05:20 - 10/10/16 05:59 Intake Total 825 ml 1700 ml 131291 ml Output Total 382856 ml Balance 825 ml 1700 ml 54830 ml Intake Oral 75 ml 100 ml 835 ml IV Total 60570 ml Tube Feeding 300 ml 800 ml 42444 ml TPN/PPN 1526 ml Tube Irrigant 450 ml 800 ml 51177 ml Output Urine Total 603068 ml Stool Total 93423 ml Gastric Drainage Total 1070 ml Ultrafiltrate 4700 ml Other 330 ml # Voids 4 2 43 # Bowel Movements 0 1 32 Exam GENERAL: Alert, not in distress, cooperative HEAD: atraumatic, normocephalic, no bruises. EYES: MACIE, EOMI, anicteric, able to fully open and close eyelids SKIN: Skin color normal, turgor normal. No visible rashes or lesions. Patient has stage II pressure ulcers on his buttocks EAR, NOSE, MOUTH, THROAT: Lips, oral mucosa, tongue gums, oropharynx are moist , pink, no lesions. Ears normal appearance, no lesions. NECK: no jugulovenous distention; supple ROM normal. Patient has NG tube RESPIRATORY: Lungs clear to auscultation. Good diaphragmatic excursion. CARDIAC: normal S1 and S2; no rubs, murmurs, or gallops; regular rate and rhythm ABDOMEN: Abdomen soft, non-tender. BS normal. No masses or organomegaly. MUSCULOSKELETAL: ROM full, muscles are not tender EXTREMITIES: no pitting edema in LE, no new deformities or skin discoloration. NEURO: Alert, oriented X 1, severe tetraplegia. Unable to fully sensitivity. Patient is mostly nonverbal PULSES: 2+ radial, 2+ carotid REVIEW OF SYSTEMS: Unable to obtain, patient is mostly nonverbal Lab and Diagnostics Result Diagram: 10/06/16 0540 10/07/16 0545 Microbiology Blood cultures pending MRSA swab pending X-Rays, CTs and MRIs CT BRAIN WITHOUT CONTRAST IMPRESSION: No acute disease. Dictated by: Hemant Gallegos M.D. on 08/23/2016 CT BRAIN WITHOUT CONTRAST IMPRESSION: 1. Diffuse bilateral hypodensity of the globus pallidus. This is a new finding when compared with the study dated 08/23/16. Differential considerations include anoxic injury, carbon monoxide neurotoxicity, excessive alcohol ingestion, and methanol or ethylene glycol ingestion. Dictated by: Dinora Kang M.D. 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 Dictated by: Jacob Mosqueda M.D. on 08/28/2016 MRI STROKE PROTOCOL IMPRESSION: BRAIN MRI: Continued worsening of ischemic injury to the brain parenchyma, symmetric bilaterally, and best seen in the deep white matter of the lentiform nuclei, the wolfe radiata, and the centrum semiovale. No associated hemorrhage. BRAIN MR ANGIOGRAM: No acute disease to the intracranial arterial vasculature. NECK MR ANGIOGRAM: Normal cervical MR angiogram. The estimate of stenosis included in the report of the imaging study was calculated using the NASCET method Dictated by: Jack Padilla M.D. on 09/15/2016 CT CHEST WITHOUT CONTRAST IMPRESSION: Small basal left pleural effusion is unchanged, with associated left lower lobe compressive atelectasis. Superimposed pneumonia therefore cannot be excluded. Dictated by: Binh Ochoa M.D. on 09/07/2016 at 13:47 US RENAL SONOGRAM IMPRESSION: No hydronephrosis. Right renal cyst. Dictated by: Shobha Vale M.D. on 08/24/2016 US ABDOMEN, LIMITED IMPRESSION: Cholelithiasis, without justin gallbladder wall thickening to suggest acute cholecystitis at this time. Dictated by: Binh Ochoa M.D. on 09/07/2016 MR ABDOMEN MRCP IMPRESSION: 1. Markedly limited study due to motion artifact. 2. Cholelithiasis without evidence of cholecystitis. 3. No biliary ductal dilatation or definite choledocholithiasis. 4. No peripancreatic edema to suggest pancreatitis an MRI. No discrete pseudocyst identified. Dictated by: Bruce Valadez M.D. on 09/08/2016 at 17:47 US ABDOMEN IMPRESSION: 1. Cholelithiasis. 2. Mild gallbladder wall thickening. Acute cholecystitis cannot be excluded. 3. Echogenic liver. Finding typically represents fatty infiltration; however, finding is nonspecific and correlation with clinical and laboratory findings is recommended to exclude other etiologies including hepatic cirrhosis. 4. Slightly echogenic right kidney suspicious for developing medical renal disease. Please correlate with clinical and laboratory data. Dictated by: Swathi Jimenes MD, PhD on 08/29/2016 US ABDOMEN, LIMITED IMPRESSION: Cholelithiasis, without justin gallbladder wall thickening to suggest acute cholecystitis at this time. Dictated by: Binh Ochoa M.D. on 09/07/2016 X-RAY CHEST ONE VIEW, PORTABLE IMPRESSION: No acute disease is seen a semiupright portable chest. Tubes are considered appropriate radiographically. Dictated by: Hemant Gallegos M.D. on 08/23/2016 X-RAY CHEST ONE VIEW, PORTABLE IMPRESSION: Support lines as above. Otherwise, no acute pulmonary process. Dictated by: Shobha Vale M.D. on 08/24/2016 X-RAY CHEST ONE VIEW, PORTABLE IMPRESSION: No acute cardiopulmonary disease process. Dictated by: Swathi Jimenes MD, PhD on 08/25/2016 X-RAY CHEST ONE VIEW, PORTABLE IMPRESSION: 1. Left basilar atelectasis. Otherwise lungs are clear. 2. ET and enteric tubes. Dictated by: Jacob Mosqueda M.D. on 08/27/2016 at 9:53 X-RAY CHEST ONE VIEW, PORTABLE IMPRESSION: Stable left basilar atelectasis and support lines. Dictated by: Jacob Mosqueda M.D. on 08/28/2016 at 7:54 Date of Service: 09/15/16 1757 PROCEDURE: MRI STROKE PROTOCOL ([id number]) IMPRESSION: BRAIN MRI: Continued worsening of ischemic injury to the brain parenchyma, symmetric bilaterally, and best seen in the deep white matter of the lentiform nuclei, the wolfe radiata, and the centrum semiovale. No associated hemorrhage. BRAIN MR ANGIOGRAM: No acute disease to the intracranial arterial vasculature. NECK MR ANGIOGRAM: Normal cervical MR angiogram. The estimate of stenosis included in the report of the imaging study was calculated using the NASCET method Dictated by: Jack Padilla M.D. on 09/15/2016 at 21:36 Approved by: Jack Padilla M.D. on 09/15/2016 at 21:42 Additional Diagnostics ABG DateTimeAnalyzed 10:20:00 -_ pH ____7.354 - 7.350 7.450 pCO2 ___31.5__ -mmHg 35.0 45.0 pO2 160 -mmHg 69.0 116 HCO3- ___17.1__ -mmol/L 22.0 26.0 FIO2 ___45.0__ -% PRVC 20 - PEEP ____8.0__ -cmH2O Assessment & Plan 41 year old male with known history of alcohol and drug use presented unresponsive after being found with vomit around him, sedated and intubated for acute hypoxemic respiratory failure secondary to aspiration for 5 days and extubated on hospital day 6 following successful spontaneous breathing trial. Patient developed acute anoxic brain injury secondary to hypoxia.Patient had large volume of vomit suctioned out in the ED. initial toxicology screen done only for salycilate, alcohol and acetaminophen which is unremarkable. Initial EEG showed evidence of slowing but no other abnormalities to suggest that the patient is having clinical seizures causing his symptoms. - Intubated on 08/23/16 , Extubated on 08/28/16. Repeat MRI of brain on 09/15/16 showing: "Continued worsening of ischemic injury to the brain parenchyma, symmetric bilaterally". Given no obvious source of infection and remote likelihood of vasculitis, per discussion with Dr. Jara a trial of steroid therapy (Prednisone 80mg daily x 3 days) given on 09/17/16 to see if we will achieve any significant improvement in neuro symptoms. No obvious improvement noted with 3 days of Prednisone treatment.Neuro reviewed this case with with [facility] neurology. Constipation, distended abdomen - Improved - Bisacodyl PRN Leukocytosis + fever - improving , will check CBC and BMP today - ID on board, appreciate recs Acute anoxic Brain Injury, Acute dysphagia - patient is responding to voice and pain - patient passed sim swallow eval, will continue tube feeds in addition to sim diet Plan - Amantadine - c/w PT/OT - Modified barium swallow test - consider PEG if patient is not able to get a little nutrition Mild hypernatremia, - resloved - was on DDAVP mcg IV bid .switched to PO DDVAP 20mch hs per nephrology. Plan to continue upon discharge. Plan to follow with nephrology in 3 weeks . Acute Kidney Injury requiring dialysis, present on admission. Resolved - Cr on admission at 3.52 and increasing after admission. Unknown history of kidney injury. - Hemodialysis done daily starting 08/25/16 and then stopped. No longer on hemodialysis and catheter removed - initially treated with Free water flushes 300 ml q 4 hr. - Continue DDAVP for now Questionable Acute Cholecystitis, based on HIDA scan and abdominal CT. - Resolved - Gen. surgery was consulted, Dr. Dash - MRCP was negative for Acute Pancreatitis and Chronic cholecystitis. - Resolved cholelithiasis w/o choledocholithiasis. - TPN stopped on 09/06/16 as this was thought to be worsening cholecystitis and pancreatitis. Acute Rhabdomyolysis, - resolved Acute stage II ulcers in the buttock areas, present on admission. - Continue with wound care and supportive care History of alcohol dependence - No need to institute CIWA protocol at this time History of drug dependence - Known user of cocaine and ice - Per family, last known use is around 5 months ago. DVT prophylaxis- sequential compression device, heparin Plan of care was discussed with significant other who was present at the bedside. She verbalized understanding and approved plan of care GI Prophylaxis: Not indicated (Patient extubated) VTE Prophylaxis: Sub-Q Heparin (Unfractionated), SCDs VTE Mechanical Devices: Intermittant Pneumatic CD Resuscitation Status: CPR: Attempt Resuscitation ( is ADM) Farshad Wells MD Oct 10, 2016 13:17
[2016-10-10 13:41] LABS: Mean Corpuscular Hemoglobin 29.9 pg (27.0-35.0)
--- NOTE | 2016-10-10 15:03 | DRSVH ---
PROCEDURE: X-RAY BARIUM SWALLOW WITH FOOD & VIDEOGRAPHY ([id number]) INDICATIONS: dysphagia , anoxic brain injury TECHNIQUE: Examination was conducted in conjunction with speech pathology per standard protocol. In the lateral projection, filming was performed of the patient swallowing. AP projection filming may also be performed with patient swallowing. COMPARISON: None. FINDINGS: Function: The oral preparatory phase appears normal, with proper containment. The subsequent oral pr opulsive phase, pharyngeal phase, and esophageal phase of swallowing also appear normal with all prof fered substances. Tracheobronchial aspiration identified with thin liquids which did elicit a cough response. No pathologic vallecular pooling. The attending physician was personally present in the r oom during the examination. Morphology: No cricopharyngeal bar is identified. No cervical esophageal webs. No Zenker's diverti culum. No strictures. IMPRESSION: Silent tracheobronchial aspiration. Dictated by: Juma DOYLE Interpreted: Shobha Vale MD on 10/10/2016 at 15:02 Transcribed by: DREW on 10/10/2016 at 15:02 Approved by: Shobha Vale M.D. on 10/11/2016 at 10:03
[2016-10-10 16:23] VITALS: BP 117/76; PULSE 104; RESP 18; O2SAT 97
--- NOTE | 2016-10-10 17:54 | NUR ---
spiritual care: family/follow up [facility]ational visit with [facility] (yesterday) in which she expressed appreciation for spiritual care, contact with clergy and hopefulness about pt's responses including some improvement in swallow/cognition. Per her request, passed along request for continued pastoral care from [facility] including, if possible measures for practical/financial or emotional support as pt continues to be treated here and family plans for discharge home. electronic resources librarian made brief in room visit and rec. updates from nursing. continuing to follow
[2016-10-10] MEDS: Desmopressin 100 mCg/mL 5 mL Nasal Spray NASAL SCH (20:32)
[2016-10-10 22:00] VITALS: BP 124/77; PULSE 119; RESP 17; O2SAT 96
[2016-10-11] MEDS: Heparin 5,000 Unit/mL Inj SUBQ SCH ×3 (00:14→17:36)
[2016-10-11 02:32] VITALS: BP 122/65; PULSE 102; RESP 16; O2SAT 98
--- NOTE | 2016-10-11 05:55 | NUR ---
DIET Upgraded diet to pureed, may have thin liquids with no straw, tolerating diet well, assisting in feeding with precaution, continues on bolus TF, pt. had a soft BM this shift, frequent turning and brief changed as needed, continues current plan of care.
[2016-10-11 06:18] VITALS: BP 120/85; PULSE 102; RESP 17; O2SAT 98
[2016-10-11] MEDS: AMANTADINE 10 MG/ML TUBE SCH ×4 (09:20→20:48)
--- NOTE | 2016-10-11 10:24 | PCM.PNMED ---
Subjective Date of Service Oct 11, 2016 Subjective Patient is in bed, was able to say good morning. She is being fed his breakfast , looks like he is able to tolerated. Family does not want PEG tube, patient is slowly improving and is able to eat. Modified barium swallow test showed silent aspiration of the thin liquid. We will remove NG tube soon as patient is able to swallow. Exam Vital Signs Vital Sign - Last Date Time Temp Pulse Resp B/P Pulse Ox O2 Delivery O2 Flow Rate FiO2 10/11/16 06:18 37.5 102 17 120/85 98 Room Air Intake and Output 10/10/16 10/10/16 10/11/16 Cumulative From/Thru 15:00 23:00 07:00 08/23/16 05:20 - 10/11/16 06:18 Intake Total 1750 ml 306228 ml Output Total 016977 ml Balance 1750 ml 01327 ml Intake Oral 150 ml 985 ml IV Total 23271 ml Tube Feeding 800 ml 47496 ml TPN/PPN 1526 ml Tube Irrigant 800 ml 76669 ml Output Urine Total 637996 ml Stool Total 06672 ml Gastric Drainage Total 1070 ml Ultrafiltrate 4700 ml Other 330 ml # Voids 2 2 47 # Bowel Movements 1 1 34 Exam GENERAL: Alert, not in distress, cooperative HEAD: atraumatic, normocephalic, no bruises. EYES: EOMI, anicteric, able to fully open and close eyelids SKIN: Skin color normal, turgor normal. No visible rashes. Patient has stage II pressure ulcers on his buttocks EAR, NOSE, MOUTH, THROAT: Lips, oral mucosa, tongue gums, oropharynx are moist , pink, no lesions.. NECK: no jugulovenous distention; supple ROM normal. Patient has NG tube RESPIRATORY: Lungs clear to auscultation. Good diaphragmatic excursion. CARDIAC: normal S1 and S2; no rubs, murmurs, or gallops; regular rate and rhythm ABDOMEN: Abdomen soft, non-tender. BS normal. No masses or organomegaly. MUSCULOSKELETAL: ROM full, muscles are not tender EXTREMITIES: no pitting edema in LE, no new deformities or skin discoloration. NEURO: Alert, oriented X 1, severe tetraplegia. Patient is ablw to say simple words when reminded. PULSES: 2+ radial, 2+ carotid REVIEW OF SYSTEMS: - unable to evaluate IVs and Medications Medications Reviewed: Medications were reviewed in detail Lab and Diagnostics Result Diagram: 10/10/16 1336 10/10/16 1336 Microbiology Blood cultures pending MRSA swab pending X-Rays, CTs and MRIs CT BRAIN WITHOUT CONTRAST IMPRESSION: No acute disease. Dictated by: Hemant Gallegos M.D. on 08/23/2016 CT BRAIN WITHOUT CONTRAST IMPRESSION: 1. Diffuse bilateral hypodensity of the globus pallidus. This is a new finding when compared with the study dated 08/23/16. Differential considerations include anoxic injury, carbon monoxide neurotoxicity, excessive alcohol ingestion, and methanol or ethylene glycol ingestion. Dictated by: Dinora Kang M.D. 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 Dictated by: Jacob Mosqueda M.D. on 08/28/2016 MRI STROKE PROTOCOL IMPRESSION: BRAIN MRI: Continued worsening of ischemic injury to the brain parenchyma, symmetric bilaterally, and best seen in the deep white matter of the lentiform nuclei, the wolfe radiata, and the centrum semiovale. No associated hemorrhage. BRAIN MR ANGIOGRAM: No acute disease to the intracranial arterial vasculature. NECK MR ANGIOGRAM: Normal cervical MR angiogram. The estimate of stenosis included in the report of the imaging study was calculated using the NASCET method Dictated by: Jack Padilla M.D. on 09/15/2016 CT CHEST WITHOUT CONTRAST IMPRESSION: Small basal left pleural effusion is unchanged, with associated left lower lobe compressive atelectasis. Superimposed pneumonia therefore cannot be excluded. Dictated by: Binh Ochoa M.D. on 09/07/2016 at 13:47 US RENAL SONOGRAM IMPRESSION: No hydronephrosis. Right renal cyst. Dictated by: Shobha Vale M.D. on 08/24/2016 US ABDOMEN, LIMITED IMPRESSION: Cholelithiasis, without justin gallbladder wall thickening to suggest acute cholecystitis at this time. Dictated by: Binh Ochoa M.D. on 09/07/2016 MR ABDOMEN MRCP IMPRESSION: 1. Markedly limited study due to motion artifact. 2. Cholelithiasis without evidence of cholecystitis. 3. No biliary ductal dilatation or definite choledocholithiasis. 4. No peripancreatic edema to suggest pancreatitis an MRI. No discrete pseudocyst identified. Dictated by: Bruce Valadez M.D. on 09/08/2016 at 17:47 US ABDOMEN IMPRESSION: 1. Cholelithiasis. 2. Mild gallbladder wall thickening. Acute cholecystitis cannot be excluded. 3. Echogenic liver. Finding typically represents fatty infiltration; however, finding is nonspecific and correlation with clinical and laboratory findings is recommended to exclude other etiologies including hepatic cirrhosis. 4. Slightly echogenic right kidney suspicious for developing medical renal disease. Please correlate with clinical and laboratory data. Dictated by: Swathi Jimenes MD, PhD on 08/29/2016 US ABDOMEN, LIMITED IMPRESSION: Cholelithiasis, without justin gallbladder wall thickening to suggest acute cholecystitis at this time. Dictated by: Binh Ochoa M.D. on 09/07/2016 X-RAY CHEST ONE VIEW, PORTABLE IMPRESSION: No acute disease is seen a semiupright portable chest. Tubes are considered appropriate radiographically. Dictated by: Hemant aGllegos M.D. on 08/23/2016 X-RAY CHEST ONE VIEW, PORTABLE IMPRESSION: Support lines as above. Otherwise, no acute pulmonary process. Dictated by: Shobha Vale M.D. on 08/24/2016 X-RAY CHEST ONE VIEW, PORTABLE IMPRESSION: No acute cardiopulmonary disease process. Dictated by: Swathi Jimenes MD, PhD on 08/25/2016 X-RAY CHEST ONE VIEW, PORTABLE IMPRESSION: 1. Left basilar atelectasis. Otherwise lungs are clear. 2. ET and enteric tubes. Dictated by: Jacob Mosqueda M.D. on 08/27/2016 at 9:53 X-RAY CHEST ONE VIEW, PORTABLE IMPRESSION: Stable left basilar atelectasis and support lines. Dictated by: Jacob Mosqueda M.D. on 08/28/2016 at 7:54 Date of Service: 09/15/16 1757 PROCEDURE: MRI STROKE PROTOCOL ([id number]) IMPRESSION: BRAIN MRI: Continued worsening of ischemic injury to the brain parenchyma, symmetric bilaterally, and best seen in the deep white matter of the lentiform nuclei, the wolfe radiata, and the centrum semiovale. No associated hemorrhage. BRAIN MR ANGIOGRAM: No acute disease to the intracranial arterial vasculature. NECK MR ANGIOGRAM: Normal cervical MR angiogram. The estimate of stenosis included in the report of the imaging study was calculated using the NASCET method Dictated by: Jack Padilla M.D. on 09/15/2016 at 21:36 Approved by: Jack Padilla M.D. on 09/15/2016 at 21:42 Additional Diagnostics ABG DateTimeAnalyzed 10:20:00 -_ pH ____7.354 - 7.350 7.450 pCO2 ___31.5__ -mmHg 35.0 45.0 pO2 160 -mmHg 69.0 116 HCO3- ___17.1__ -mmol/L 22.0 26.0 FIO2 ___45.0__ -% PRVC 20 - PEEP ____8.0__ -cmH2O Assessment & Plan 41 year old male with known history of alcohol and drug use presented unresponsive after being found with vomit around him, sedated and intubated for acute hypoxemic respiratory failure secondary to aspiration for 5 days and extubated on hospital day 6 following successful spontaneous breathing trial. Patient developed acute anoxic brain injury secondary to hypoxia.Patient had large volume of vomit suctioned out in the ED. initial toxicology screen done only for salycilate, alcohol and acetaminophen which is unremarkable. Initial EEG showed evidence of slowing but no other abnormalities to suggest that the patient is having clinical seizures causing his symptoms. - Intubated on 08/23/16 , Extubated on 08/28/16. Repeat MRI of brain on 09/15/16 showing: "Continued worsening of ischemic injury to the brain parenchyma, symmetric bilaterally". Given no obvious source of infection and remote likelihood of vasculitis, per discussion with Dr. Jara a trial of steroid therapy (Prednisone 80mg daily x 3 days) given on 09/17/16 to see if we will achieve any significant improvement in neuro symptoms. No obvious improvement noted with 3 days of Prednisone treatment.Neuro reviewed this case with with [facility] neurology. Constipation, distended abdomen - Improved - Bisacodyl PRN Leukocytosis, increased T - patient still has leukocytosis - ID evaluated the patient, appreciate recs Acute anoxic Brain Injury, Acute dysphagia - patient is responding to voice and pain, able to say simple words - barium swallow showed silent aspiration to liquids, otherwise normal - family does not want PEG Plan - Amantadine - c/w PT/OT - will need to remove NG tube soon. Mild hypernatremia, - resloved - was on DDAVP mcg IV bid .switched to PO DDVAP 20mch hs per nephrology. Plan to continue upon discharge. Plan to follow with nephrology. Acute Kidney Injury requiring dialysis, present on admission. Resolved - Cr on admission at 3.52 and increasing after admission. Unknown history of kidney injury. - Hemodialysis done daily starting 08/25/16 and then stopped. No longer on hemodialysis and catheter removed - initially treated with Free water flushes 300 ml q 4 hr. - Continue DDAVP for now Questionable Acute Cholecystitis, based on HIDA scan and abdominal CT. - Resolved - Gen. surgery was consulted, Dr. Dash - MRCP was negative for Acute Pancreatitis and Chronic cholecystitis. - Resolved cholelithiasis w/o choledocholithiasis. - TPN stopped on 09/06/16 as this was thought to be worsening cholecystitis and pancreatitis. Acute Rhabdomyolysis, - resolved Acute stage II ulcers in the buttock areas, present on admission. - Continue with wound care and supportive care History of alcohol dependence - No need to institute CIWA protocol at this time History of drug dependence - Known user of cocaine and ice - Per family, last known use is around 5 months ago. DVT prophylaxis- sequential compression device, heparin Plan of care was discussed with family member who was present at the bedside. She verbalized understanding and approved plan of care. GI Prophylaxis: Not indicated (Patient extubated) VTE Prophylaxis: Sub-Q Heparin (Unfractionated), SCDs VTE Mechanical Devices: Intermittant Pneumatic CD Resuscitation Status: CPR: Attempt Resuscitation ( is ADM) Farshad Wells MD Oct 11, 2016 10:24
--- NOTE | 2016-10-11 11:43 | NUR ---
NG/Tube Feed Per Dr. Wells order received to remove NG tube and d/c tube feeds. Patient ate 100% of breakfast, tolerated well. Pt's updated with plan.
[2016-10-11 11:57] VITALS: BP 120/79; PULSE 85; RESP 16; O2SAT 99
--- NOTE | 2016-10-11 17:01 | NUR ---
NUTRITION FOLLOW UP: ASSESS: 41 YO male with anoxic brain injury, improved such that his diet has been advanced to pureed with nectar thick liquids. PO intake has increased from 75% - 100% trays, including supplements. Per Dr. Arias's recommendation, the NG tube was discontinued today. Case Management and I discussed via AV costume mistress the patient's discharge needs. The patient will need a lift and a specialized bed pad to prevent wound development. I provided strategies to provide varied and appealing meals utilizing a cutter grinder operator. Hi calorie / protein supplement and meal booklet provided, with suggestion to purchase protein powder to enhance his protein intake. Once the lift and bed pads are ordered, Dr. Arias recommends the patient be discharged home with SO. PMHx: ETOH abuse. DIET: Pureed, nectar thick liquids. PO intake 75% - 100% trays, including supplements. NUTRITION SUPPORT: DISCONTINUED. Jevity 1.5~bolus of 400 mL 4 times per day, with 25 mL H2O flush before and after each bolus. Also 400 ML H2O bolus 4 times per day. TF and H2O bolus providing 2400 kcals, 102 g protein and 3016 ml free H20 per day. Fluids provided from flush dose and bolus dose will be the same volume as nephrology has ordered (300 mL every 4 hours). LABS: Reviewed. Na 133, Chloride 95, Cr < 0.30, Glu 123. MEDICATIONS: Reviewed. GI: BM x 1 today. SKIN: Wounds healed per wound care note. ANTHROPOMETRICS: Current Wt: (09/29) 87.3 kg. Admit wt: 95.1 kg. IBW: 72.7 kg ESTIMATED NEEDS: Calories: 5805-0345 kcal/day (25-30 kcal/kg BW) Protein: 85-110 g protein (1.2-1.5 g/kg BW IBW) Fluid: Approx. ~8699-4949 mL (25-35 mL/kg BW) but fluids per nephrology at this time. NUTRITION DIAGNOSIS: 1) Inadequate oral intake related to inability to consume sufficient energy due to cognition, as evidenced by NPO/stimulation diet status - RESOLVED. 2.) Chewing / swallowing difficulties related to anoxic brain injury as evidenced by current need for stimulation diet, ST following - SIGNIFICANTLY IMPROVED. INTERVENTION: 1) Continue to advance diet as able per ST recommendations. 2) Will continue to add supplements to trays. 3) Will maintain contact with SO post discharge to discuss any questions she may have. MONITOR/EVALUATE: Diet advancement / tolerance, POC, labs, weights, nutrition status. Follow per moderate nutrition risk guidelines.
--- NOTE | 2016-10-11 17:42 | NUR ---
Social Work Note: Continued Discharge Planning Data& Assessment: Per ST, pt has passed barium swallow and per MD, pt NG tube is able to be removed as pt is able to eat thin liquids. THIMBLE PRESS OPERATOR spoke with attending physician who states that pt aspiration risk and ability to be successful at home with a tube feed was the primary concern for pt discharge home. Now that pt can safely take in nutrients by mouth, pt may be medically ready to discharge home in the next week pending pt family having the appropriate equipment in place to maintain safety at home. Pt is likely at a new baseline for physical functioning with lack of trunk strength but pt continues to practice strengthening exercises with pt taught by PT and RN. THIMBLE PRESS OPERATOR and forming machine upkeep mechanic met with pt and pt at bedside with the assistance of the credit advisor stick. Dietary met with pt at bedside today and discussed options for pureed food that pt is able to blend at home to provide to the pt to avoid high cost shakes or formulas. Pt confirmed she has a senior product designer and is agreeable to this plan per forming machine upkeep mechanic. THIMBLE PRESS OPERATOR spoke with pt about discharge home. THIMBLE PRESS OPERATOR provided cost information and pictures of [employer] mattress pad per crusher assembler recommendations to prevent skin breakdown (about $107 on [employer]). Per previous PT recommendations for safe safe transfers at home, THIMBLE PRESS OPERATOR provided picture of a lift with a sling and DME company choice list with quotes from [employer] as an example (Ranging from $125-250). Pt explained that she has already located a power lift on [employer] and is looking into the quality of that lift and will also compare prices. Pt working with her jehovah's witness to potentially have help in obtaining a medical bed. Pt is also looking for used medical beds in the community. Pt is happy pt is improving and denies any other needs for further information from THIMBLE PRESS OPERATOR or other specialities at this time. RN's documenting consistent examples of pt completing basic care needs for pt in the room. THIMBLE PRESS OPERATOR to follow up with pt on progress of obtaining these equipment recommendations and supplies. THIMBLE PRESS OPERATOR to continue to follow. Plan: Anticipated discharge home with family support pending pt family having the appropriate equipment in place to maintain safety at home. NG tube removed, pt on thin liquid diet. Pt obtaining equipment privately in the community. THIMBLE PRESS OPERATOR to continue to follow. JEFF Swan
[2016-10-11 17:45] VITALS: BP 130/93; PULSE 109; RESP 16; O2SAT 97
[2016-10-11 20:30] VITALS: BP 130/92; PULSE 108; RESP 18; O2SAT 99
[2016-10-11] MEDS: Desmopressin 100 mCg/mL 5 mL Nasal Spray NASAL SCH (20:48)
--- NOTE | 2016-10-11 21:21 | NUR ---
Request New Order Pt. Symmetrel 200mg/20mL syrup due tonight but was to be given via NG tube but Pt. tube was discontinued early today. Called pharmacy to see if it could be given SL and was told to page the On-Call doctor to get the order changed. Paged On-Call but haven't heard back as of now.
[2016-10-12] MEDS: Heparin 5,000 Unit/mL Inj SUBQ SCH ×3 (00:31→16:30)
[2016-10-12 00:46] VITALS: BP 118/78; PULSE 93; RESP 16; O2SAT 97
--- NOTE | 2016-10-12 04:33 | NUR ---
No Return Call On-Call physician didn't return call so Symmetral was no admit per change in Pt. condition. Will have day nurse check on administration of Symmetrel. VSS and WCTM
[2016-10-12 05:32] VITALS: BP 120/79; PULSE 102; RESP 16; O2SAT 98
[2016-10-12] MEDS: AMANTADINE 10 MG/ML TUBE SCH (08:30)
[2016-10-12 10:01] VITALS: BP 117/77; PULSE 100; RESP 16; O2SAT 98
--- NOTE | 2016-10-12 13:01 | PCM.PNMED ---
Subjective Date of Service Oct 12, 2016 Subjective Patient is slowly improving. Over the last week he has been able to talk a bit and even is eating and taking pills orally now. Friend present a bedside today. No other problems per nursing. Exam Vital Signs Vital Sign - Last Date Time Temp Pulse Resp B/P Pulse Ox O2 Delivery O2 Flow Rate FiO2 10/12/16 05:32 37.5 102 16 120/79 98 Room Air Intake and Output 10/11/16 10/11/16 10/12/16 Cumulative From/Thru 15:00 23:00 07:00 08/23/16 05:20 - 10/12/16 05:16 Intake Total 1036 ml 236 ml 941674 ml Output Total 172972 ml Balance 1036 ml 236 ml 24291 ml Intake Oral 236 ml 236 ml 1457 ml IV Total 73436 ml Tube Feeding 400 ml 61625 ml TPN/PPN 1526 ml Tube Irrigant 400 ml 80988 ml Output Urine Total 114406 ml Stool Total 83201 ml Gastric Drainage Total 1070 ml Ultrafiltrate 4700 ml Other 330 ml # Voids 2 1 2 52 # Bowel Movements 34 Exam Skin; warm, dry, no rash HENT; adequate hydration, patient opens mouth to command CV; present, no murmur Resp; clear anteriorly GI; soft non tender, benign Neuro; CN intact, Will not move hands or legs to command Lab and Diagnostics Result Diagram: 10/10/16 1336 10/10/16 1336 Microbiology Blood cultures pending MRSA swab pending X-Rays, CTs and MRIs CT BRAIN WITHOUT CONTRAST IMPRESSION: No acute disease. Dictated by: Hemant Gallegos M.D. on 08/23/2016 CT BRAIN WITHOUT CONTRAST IMPRESSION: 1. Diffuse bilateral hypodensity of the globus pallidus. This is a new finding when compared with the study dated 08/23/16. Differential considerations include anoxic injury, carbon monoxide neurotoxicity, excessive alcohol ingestion, and methanol or ethylene glycol ingestion. Dictated by: Dinora Kang M.D. 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 Dictated by: Jacob Mosqueda M.D. on 08/28/2016 MRI STROKE PROTOCOL IMPRESSION: BRAIN MRI: Continued worsening of ischemic injury to the brain parenchyma, symmetric bilaterally, and best seen in the deep white matter of the lentiform nuclei, the wolfe radiata, and the centrum semiovale. No associated hemorrhage. BRAIN MR ANGIOGRAM: No acute disease to the intracranial arterial vasculature. NECK MR ANGIOGRAM: Normal cervical MR angiogram. The estimate of stenosis included in the report of the imaging study was calculated using the NASCET method Dictated by: Jack Padilla M.D. on 09/15/2016 CT CHEST WITHOUT CONTRAST IMPRESSION: Small basal left pleural effusion is unchanged, with associated left lower lobe compressive atelectasis. Superimposed pneumonia therefore cannot be excluded. Dictated by: Binh Ochoa M.D. on 09/07/2016 at 13:47 US RENAL SONOGRAM IMPRESSION: No hydronephrosis. Right renal cyst. Dictated by: Shobha Vale M.D. on 08/24/2016 US ABDOMEN, LIMITED IMPRESSION: Cholelithiasis, without justin gallbladder wall thickening to suggest acute cholecystitis at this time. Dictated by: Binh Ochoa M.D. on 09/07/2016 MR ABDOMEN MRCP IMPRESSION: 1. Markedly limited study due to motion artifact. 2. Cholelithiasis without evidence of cholecystitis. 3. No biliary ductal dilatation or definite choledocholithiasis. 4. No peripancreatic edema to suggest pancreatitis an MRI. No discrete pseudocyst identified. Dictated by: Bruce Valadez M.D. on 09/08/2016 at 17:47 US ABDOMEN IMPRESSION: 1. Cholelithiasis. 2. Mild gallbladder wall thickening. Acute cholecystitis cannot be excluded. 3. Echogenic liver. Finding typically represents fatty infiltration; however, finding is nonspecific and correlation with clinical and laboratory findings is recommended to exclude other etiologies including hepatic cirrhosis. 4. Slightly echogenic right kidney suspicious for developing medical renal disease. Please correlate with clinical and laboratory data. Dictated by: Swathi Jimenes MD, PhD on 08/29/2016 US ABDOMEN, LIMITED IMPRESSION: Cholelithiasis, without justin gallbladder wall thickening to suggest acute cholecystitis at this time. Dictated by: Binh Ochoa M.D. on 09/07/2016 X-RAY CHEST ONE VIEW, PORTABLE IMPRESSION: No acute disease is seen a semiupright portable chest. Tubes are considered appropriate radiographically. Dictated by: Hemant Gallegos M.D. on 08/23/2016 X-RAY CHEST ONE VIEW, PORTABLE IMPRESSION: Support lines as above. Otherwise, no acute pulmonary process. Dictated by: Shobha Vale M.D. on 08/24/2016 X-RAY CHEST ONE VIEW, PORTABLE IMPRESSION: No acute cardiopulmonary disease process. Dictated by: Swathi Jimenes MD, PhD on 08/25/2016 X-RAY CHEST ONE VIEW, PORTABLE IMPRESSION: 1. Left basilar atelectasis. Otherwise lungs are clear. 2. ET and enteric tubes. Dictated by: Jacbo Mosqueda M.D. on 08/27/2016 at 9:53 X-RAY CHEST ONE VIEW, PORTABLE IMPRESSION: Stable left basilar atelectasis and support lines. Dictated by: Jacob Mosqueda M.D. on 08/28/2016 at 7:54 Date of Service: 09/15/16 1757 PROCEDURE: MRI STROKE PROTOCOL ([id number]) IMPRESSION: BRAIN MRI: Continued worsening of ischemic injury to the brain parenchyma, symmetric bilaterally, and best seen in the deep white matter of the lentiform nuclei, the wolfe radiata, and the centrum semiovale. No associated hemorrhage. BRAIN MR ANGIOGRAM: No acute disease to the intracranial arterial vasculature. NECK MR ANGIOGRAM: Normal cervical MR angiogram. The estimate of stenosis included in the report of the imaging study was calculated using the NASCET method Dictated by: Jack Padilla M.D. on 09/15/2016 at 21:36 Approved by: Jack Padilla M.D. on 09/15/2016 at 21:42 Additional Diagnostics ABG DateTimeAnalyzed 10:20:00 -_ pH ____7.354 - 7.350 7.450 pCO2 ___31.5__ -mmHg 35.0 45.0 pO2 160 -mmHg 69.0 116 HCO3- ___17.1__ -mmol/L 22.0 26.0 FIO2 ___45.0__ -% PRVC 20 - PEEP ____8.0__ -cmH2O Assessment & Plan 41 year old male with known history of alcohol and drug use presented unresponsive after being found with vomit around him, sedated and intubated for acute hypoxemic respiratory failure secondary to aspiration for 5 days and extubated on hospital day 6 following successful spontaneous breathing trial. Patient developed acute anoxic brain injury secondary to hypoxia.Patient had large volume of vomit suctioned out in the ED. initial toxicology screen done only for salycilate, alcohol and acetaminophen which is unremarkable. Initial EEG showed evidence of slowing but no other abnormalities to suggest that the patient is having clinical seizures causing his symptoms. - Intubated on 08/23/16 , Extubated on 08/28/16. Repeat MRI of brain on 09/15/16 showing: "Continued worsening of ischemic injury to the brain parenchyma, symmetric bilaterally". Given no obvious source of infection and remote likelihood of vasculitis, per discussion with Dr. Jara a trial of steroid therapy (Prednisone 80mg daily x 3 days) given on 09/17/16 to see if we will achieve any significant improvement in neuro symptoms. No obvious improvement noted with 3 days of Prednisone treatment.Neuro reviewed this case with with [facility] neurology. Constipation, distended abdomen - Improved - Bisacodyl PRN Acute anoxic Brain Injury, Acute dysphagia, poa, improving - patient is responding to voice and pain, able to say simple words - barium swallow showed silent aspiration to liquids, otherwise normal - family does not want PEG - Amantadine 200 bid, at goal, per neurology - c/w PT/OT Diabetes Insipidus, poa, stable - nephrology recommends DDVAP 20mch hs per nephrology. - continue upon dischargeand follow up with nephrology. Acute Kidney Injury secondary to ATN present on admission. Resolved - requiring temporary dialysis - Unknown history of kidney injury. - Hemodialysis done daily starting 08/25/16 and then stopped. No longer on hemodialysis and catheter removed Questionable Acute Cholecystitis, based on HIDA scan and abdominal CT. - Resolved - Gen. surgery was consulted, Dr. Dash - MRCP was negative for Acute Pancreatitis and Chronic cholecystitis. - Resolved cholelithiasis w/o choledocholithiasis. - TPN stopped on 09/06/16 as this was thought to be worsening cholecystitis and pancreatitis. Acute Rhabdomyolysis, poa, resolved - resolved Acute stage II ulcers in the buttock areas, present on admission, stable - Continue with wound care and supportive care History of alcohol dependence, poa, stable - thiamin History of drug dependence, poa, stable - Known user of cocaine and ice - Per family, last known use is around 5 months ago. DVT prophylaxis- sequential compression device, heparin Plan of care was discussed with family member who was present at the bedside. She verbalized understanding and approved plan of care. GI Prophylaxis: Not indicated (Patient extubated) VTE Prophylaxis: Sub-Q Heparin (Unfractionated), SCDs VTE Mechanical Devices: Intermittant Pneumatic CD Resuscitation Status: CPR: Attempt Resuscitation ( is ADM) Gilbert Ford MD Oct 12, 2016 13:01
[2016-10-12 17:58] VITALS: BP 111/76; PULSE 107; RESP 18; O2SAT 97
--- NOTE | 2016-10-12 18:16 | NUR ---
Nutrition/Fever Pt has been very good with meals today, finishing the entire tray, tolerating very well, multiple bowel movements and well saturated briefs all day, this is fantastic progress from what I've seen before with this man. Pt temp this evening was 38.2, paged and instructed to monitor overnight for escalating temp.
[2016-10-12 20:30] VITALS: BP 132/92; PULSE 118; RESP 18; O2SAT 98
[2016-10-12] MEDS: AMANTADINE 10 MG/ML PO SCH (20:34)
[2016-10-12] MEDS: Desmopressin 100 mCg/mL 5 mL Nasal Spray NASAL SCH (20:34)
[2016-10-13] VITALS (7 sets, daily range): BP systolic 118–136; BP diastolic 85–95; PULSE 118–140; RESP 16–20; O2SAT 97–100
[2016-10-13] MEDS: Heparin 5,000 Unit/mL Inj SUBQ SCH ×3 (00:34→16:56)
--- NOTE | 2016-10-13 04:58 | NUR ---
Tachycardic Pt. continues to be tachycardic but other VSS. Normal bladder out put in brief with no BM this shift. Took Rx medications as per order. Normal breathing pattern w/o aspiration. WCTM
[2016-10-13] MEDS: Acetaminophen 32.5 mg/mL 20 mL Liquid TUBE PRN (08:50)
[2016-10-13] MEDS: AMANTADINE 10 MG/ML PO SCH ×2 (08:50→20:32)
--- NOTE | 2016-10-13 13:39 | NUR ---
Fever/Tachycardia Pt has been persistently diaphoretic, febrile and tachycardic, MD notified and now awaiting xray and some blood work to evaluate for infection. Care c/t w/ q2t and frequent brief changes, pt taking po well at meals and for meds.
--- NOTE | 2016-10-13 14:49 | PCM.PNMED ---
Subjective Date of Service Oct 13, 2016 Subjective Patient with fever at 38 plus 3 time since yesterday. No obvious source, no dirrhea, no cough, sacral wound healed, no rash or skin lesion. Tolerating oral feeding with our apparent aspiration. Exam Vital Signs Vital Sign - Last Date Time Temp Pulse Resp B/P Pulse Ox O2 Delivery O2 Flow Rate FiO2 10/13/16 08:33 38.1 121 18 118/88 97 Room Air Intake and Output 10/12/16 10/12/16 10/13/16 Cumulative From/Thru 14:59 22:59 06:59 08/23/16 05:20 - 10/12/16 22:00 Intake Total 720 ml 512935 ml Output Total 968847 ml Balance 720 ml 28992 ml Intake Oral 720 ml 2177 ml IV Total 14043 ml Tube Feeding 21181 ml TPN/PPN 1526 ml Tube Irrigant 62906 ml Output Urine Total 616915 ml Stool Total 26077 ml Gastric Drainage Total 1070 ml Ultrafiltrate 4700 ml Other 330 ml # Voids 5 57 # Bowel Movements 3 37 Exam Skin; warm, dry, no rash, no sign of phlebitis on arms legs. HENT; adequate hydration, patient opens mouth to command, no lesions CV; present, no murmur Resp; clear anteriorly, few bibasilar crackles GI; soft non tender, benign Neuro; CN intact, opens eyes, makes some eye contact, otherwise just stares with out interaction. Can not move hands or arms, legs to any sig extent Lab and Diagnostics Result Diagram: 10/10/16 1336 10/10/16 1336 Microbiology Blood cultures pending MRSA swab pending X-Rays, CTs and MRIs CT BRAIN WITHOUT CONTRAST IMPRESSION: No acute disease. Dictated by: Hemant Gallegos M.D. on 08/23/2016 CT BRAIN WITHOUT CONTRAST IMPRESSION: 1. Diffuse bilateral hypodensity of the globus pallidus. This is a new finding when compared with the study dated 08/23/16. Differential considerations include anoxic injury, carbon monoxide neurotoxicity, excessive alcohol ingestion, and methanol or ethylene glycol ingestion. Dictated by: Dinora Kang M.D. 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 Dictated by: Jacob Mosqueda M.D. on 08/28/2016 MRI STROKE PROTOCOL IMPRESSION: BRAIN MRI: Continued worsening of ischemic injury to the brain parenchyma, symmetric bilaterally, and best seen in the deep white matter of the lentiform nuclei, the wolfe radiata, and the centrum semiovale. No associated hemorrhage. BRAIN MR ANGIOGRAM: No acute disease to the intracranial arterial vasculature. NECK MR ANGIOGRAM: Normal cervical MR angiogram. The estimate of stenosis included in the report of the imaging study was calculated using the NASCET method Dictated by: Jack Padilla M.D. on 09/15/2016 CT CHEST WITHOUT CONTRAST IMPRESSION: Small basal left pleural effusion is unchanged, with associated left lower lobe compressive atelectasis. Superimposed pneumonia therefore cannot be excluded. Dictated by: Binh Ochoa M.D. on 09/07/2016 at 13:47 US RENAL SONOGRAM IMPRESSION: No hydronephrosis. Right renal cyst. Dictated by: Shobha Vale M.D. on 08/24/2016 US ABDOMEN, LIMITED IMPRESSION: Cholelithiasis, without justin gallbladder wall thickening to suggest acute cholecystitis at this time. Dictated by: Binh Ochoa M.D. on 09/07/2016 MR ABDOMEN MRCP IMPRESSION: 1. Markedly limited study due to motion artifact. 2. Cholelithiasis without evidence of cholecystitis. 3. No biliary ductal dilatation or definite choledocholithiasis. 4. No peripancreatic edema to suggest pancreatitis an MRI. No discrete pseudocyst identified. Dictated by: Bruce Valadez M.D. on 09/08/2016 at 17:47 US ABDOMEN IMPRESSION: 1. Cholelithiasis. 2. Mild gallbladder wall thickening. Acute cholecystitis cannot be excluded. 3. Echogenic liver. Finding typically represents fatty infiltration; however, finding is nonspecific and correlation with clinical and laboratory findings is recommended to exclude other etiologies including hepatic cirrhosis. 4. Slightly echogenic right kidney suspicious for developing medical renal disease. Please correlate with clinical and laboratory data. Dictated by: Swathi Jimenes MD, PhD on 08/29/2016 US ABDOMEN, LIMITED IMPRESSION: Cholelithiasis, without justin gallbladder wall thickening to suggest acute cholecystitis at this time. Dictated by: Binh Ochoa M.D. on 09/07/2016 X-RAY CHEST ONE VIEW, PORTABLE IMPRESSION: No acute disease is seen a semiupright portable chest. Tubes are considered appropriate radiographically. Dictated by: Hemant Gallegos M.D. on 08/23/2016 X-RAY CHEST ONE VIEW, PORTABLE IMPRESSION: Support lines as above. Otherwise, no acute pulmonary process. Dictated by: Shobha Vale M.D. on 08/24/2016 X-RAY CHEST ONE VIEW, PORTABLE IMPRESSION: No acute cardiopulmonary disease process. Dictated by: Swathi Jimenes MD, PhD on 08/25/2016 X-RAY CHEST ONE VIEW, PORTABLE IMPRESSION: 1. Left basilar atelectasis. Otherwise lungs are clear. 2. ET and enteric tubes. Dictated by: Jacob Mosqueda M.D. on 08/27/2016 at 9:53 X-RAY CHEST ONE VIEW, PORTABLE IMPRESSION: Stable left basilar atelectasis and support lines. Dictated by: Jacob Mosqueda M.D. on 08/28/2016 at 7:54 Date of Service: 09/15/16 1757 PROCEDURE: MRI STROKE PROTOCOL ([id number]) IMPRESSION: BRAIN MRI: Continued worsening of ischemic injury to the brain parenchyma, symmetric bilaterally, and best seen in the deep white matter of the lentiform nuclei, the wolfe radiata, and the centrum semiovale. No associated hemorrhage. BRAIN MR ANGIOGRAM: No acute disease to the intracranial arterial vasculature. NECK MR ANGIOGRAM: Normal cervical MR angiogram. The estimate of stenosis included in the report of the imaging study was calculated using the NASCET method Dictated by: Jack Padilla M.D. on 09/15/2016 at 21:36 Approved by: Jack Padilla M.D. on 09/15/2016 at 21:42 Additional Diagnostics ABG DateTimeAnalyzed 10:20:00 -_ pH ____7.354 - 7.350 7.450 pCO2 ___31.5__ -mmHg 35.0 45.0 pO2 160 -mmHg 69.0 116 HCO3- ___17.1__ -mmol/L 22.0 26.0 FIO2 ___45.0__ -% PRVC 20 - PEEP ____8.0__ -cmH2O Assessment & Plan 41 year old male with known history of alcohol and drug use presented unresponsive after being found with vomit around him, sedated and intubated for acute hypoxemic respiratory failure secondary to aspiration for 5 days and extubated on hospital day 6 following successful spontaneous breathing trial. Patient developed acute anoxic brain injury secondary to hypoxia.Patient had large volume of vomit suctioned out in the ED. initial toxicology screen done only for salycilate, alcohol and acetaminophen which is unremarkable. Initial EEG showed evidence of slowing but no other abnormalities to suggest that the patient is having clinical seizures causing his symptoms. - Intubated on 08/23/16 , Extubated on 08/28/16. Repeat MRI of brain on 09/15/16 showing: "Continued worsening of ischemic injury to the brain parenchyma, symmetric bilaterally". Given no obvious source of infection and remote likelihood of vasculitis, per discussion with Dr. Jara a trial of steroid therapy (Prednisone 80mg daily x 3 days) given on 09/17/16 to see if we will achieve any significant improvement in neuro symptoms. No obvious improvement noted with 3 days of Prednisone treatment.Neuro reviewed this case with with [facility] neurology. Constipation, , stable - Improved - Bisacodyl PRN Fever, new, active -source unclear, nothing obvious -CBC with diff, procalcitonin, CMP, 2 bld cultures, UA, CXR, viral pcr resp Acute anoxic Brain Injury, Acute dysphagia, poa, improving - patient is responding to voice and pain, able to say simple words - barium swallow showed silent aspiration to liquids, otherwise normal - family does not want PEG - Amantadine 200 bid, at goal, per neurology - c/w PT/OT Diabetes Insipidus, poa, stable - nephrology recommends DDVAP 20mch hs per nephrology. - continue upon dischargeand follow up with nephrology. Acute Kidney Injury secondary to ATN present on admission. Resolved - requiring temporary dialysis - Unknown history of kidney injury. - Hemodialysis done daily starting 08/25/16 and then stopped. No longer on hemodialysis and catheter removed Questionable Acute Cholecystitis, based on HIDA scan and abdominal CT. - Resolved - Gen. surgery was consulted, Dr. Dash - MRCP was negative for Acute Pancreatitis and Chronic cholecystitis. - Resolved cholelithiasis w/o choledocholithiasis. - TPN stopped on 09/06/16 as this was thought to be worsening cholecystitis and pancreatitis. Acute Rhabdomyolysis, poa, resolved - resolved Acute stage II ulcers in the buttock areas, present on admission, stable - Continue with wound care and supportive care History of alcohol dependence, poa, stable - thiamin History of drug dependence, poa, stable - Known user of cocaine and ice - Per family, last known use is around 5 months ago. DVT prophylaxis- sequential compression device, heparin Plan of care was discussed with family member who was present at the bedside. She verbalized understanding and approved plan of care. GI Prophylaxis: Not indicated (Patient extubated) VTE Prophylaxis: Sub-Q Heparin (Unfractionated), SCDs VTE Mechanical Devices: Intermittant Pneumatic CD Resuscitation Status: CPR: Attempt Resuscitation ( is ADM) Gilbert Ford MD Oct 13, 2016 14:49
[2016-10-13 15:36] LABS: Mean Corpuscular Volume 88.9 fL (81-100); Platelet Count 317 bil/L (150-400)
[2016-10-13 15:43] LABS: Mean Corpuscular Hemoglobin 29.9 pg (27.0-35.0)
[2016-10-13 15:57] LABS: Creatine Kinase 89 U/L (21-232)
[2016-10-13 16:02] LABS: BASOPHILS % (AUTO) 1 % (0-3); EOSINOPHILS % (AUTO) 2 % (0-5); MONOCYTES % (AUTO) 7 % (4-12); NEUTROPHILS % (AUTO) 64 % (40-74)
--- NOTE | 2016-10-13 16:20 | DRSVH ---
PROCEDURE: X-RAY CHEST ONE VIEW, PORTABLE ([id number]) INDICATIONS: fever, cough TECHNIQUE: One view of the chest was acquired. COMPARISON: [facility], CT, CT CHEST WO CON, 09/30/2016, 17:08. [facility], CR, XR CHEST 1VW (PORTABLE), 09/25/2016, 8:59. FINDINGS: Surgical changes and devices: None. Lungs and pleura: No pleural effusions or pneumothorax. There are persistent left retrocardiac opac ities corresponding consolidation seen on prior CT. Mediastinum: Mediastinal contours appear unchanged. Heart size is normal. Bones and chest wall: No suspicious bony lesions. Overlying soft tissues appear unremarkable. IMPRESSION: 1. Persistent left retrocardiac opacities consistent with consolidation seen on prior CT. Dictated by: Bruce Valadez M.D. on 10/13/2016 at 16:16 Approved by: Bruce Valadez M.D. on 10/13/2016 at 16:19
--- NOTE | 2016-10-13 16:32 | NUR ---
Social Work Note: Continued Discharge Planning Data& Assessment: Pt was discussed in multidisciplinary rounds. Per MD, pt experiencing a fever and changes in his heart rate. MD states pt might have silent aspiration. HEARING AND SPEECH ASSISTANT to continue to follow for MD evaluation and diagnosis to determine if previous discharge plan is still appropriate. HEARING AND SPEECH ASSISTANT to follow up with pt regarding discharge planning once pt plan of care is clarified after this change in condition. HEARING AND SPEECH ASSISTANT to continue to follow. Plan: Pt has a fever now. HEARING AND SPEECH ASSISTANT to continue to follow for any changes in pt care plan by MD. Anticipated discharge home with family support once appropriate equipment is obtained by family to ensure safety in the home. JEFF Swan
[2016-10-13] MEDS: Desmopressin 100 mCg/mL 5 mL Nasal Spray NASAL SCH (20:32)
--- NOTE | 2016-10-13 20:54 | NUR ---
Increased HR Pt. continues to have an increased HR. 0600 118, 0800 120 1800 125 and at 2044 140 so Reducer Doctor was and returned call with order for 12 Lead to start.
[2016-10-14] VITALS (7 sets, daily range): BP systolic 113–135; BP diastolic 30–90; PULSE 112–121; RESP 16–18; O2SAT 97–98
[2016-10-14] MEDS: Heparin 5,000 Unit/mL Inj SUBQ SCH ×3 (00:27→16:30)
--- NOTE | 2016-10-14 05:24 | NUR ---
Pt. on Telemetry ECG stated Tachycardia at 135. On-Call doctor also order the Pt. to be on Telemetry and it has shown Pt. to be in the high 120's to low 130's. She also order labs. No further orders at this time. Other VSS and only one wet brief with BM this shift. WCTM
[2016-10-14 07:20] LABS: Mean Corpuscular Hemoglobin 29.4 pg (27.0-35.0); Mean Corpuscular Volume 89.6 fL (81-100); Platelet Count 286 bil/L (150-400)
[2016-10-14 07:52] LABS: BASOPHILS % (AUTO) 0 % (0-3); EOSINOPHILS % (AUTO) 0 % (0-5); MONOCYTES % (AUTO) 7 % (4-12); NEUTROPHILS % (AUTO) 69 % (40-74)
[2016-10-14] MEDS ORDERED: 0.9% Sodium Chloride 500 ML IV STA (08:20)
[2016-10-14] MEDS: 0.9% Sodium Chloride 1,000 ML IV SCH ×2 (08:20→18:20)
[2016-10-14] MEDS: AMANTADINE 10 MG/ML PO SCH ×2 (08:30→21:29)
--- NOTE | 2016-10-14 10:57 | NUR ---
NPO/Tachycardia Pt is having increasing cough when taking po, MD notified and pt is now npo til speech can come and reevaluate. Pt was also quite tachy overnight, placed on tele, and now on ivf w/ a 500 bolus. Will reevaluate for hr and bp changes.
--- NOTE | 2016-10-14 13:58 | PCM.PNMED ---
Subjective Date of Service Oct 14, 2016 Subjective No more fever for 24 hours, procal low and cxr unchanged. However patient now coughing when eating. Note some hyponatremia now, still on ddavp. Exam Vital Signs Vital Sign - Last Date Time Temp Pulse Resp B/P Pulse Ox O2 Delivery O2 Flow Rate FiO2 10/14/16 09:06 121 10/14/16 06:23 37.5 16 129/30 97 Room Air Intake and Output 10/13/16 10/13/16 10/14/16 Cumulative From/Thru 15:00 23:00 07:00 08/23/16 05:20 - 10/14/16 06:21 Intake Total 600 ml 200 ml 364686 ml Output Total 500 ml 828199 ml Balance 100 ml 200 ml 97208 ml Intake Oral 600 ml 200 ml 2977 ml IV Total 11756 ml Tube Feeding 24228 ml TPN/PPN 1526 ml Tube Irrigant 64825 ml Output Urine Total 500 ml 261127 ml Stool Total 12343 ml Gastric Drainage Total 1070 ml Ultrafiltrate 4700 ml Other 330 ml # Voids 3 1 61 # Bowel Movements 37 Exam Skin; warm, dry, no rash, no sign of phlebitis on arms legs. HENT; adequate hydration, patient opens mouth to command, no lesions CV; present, no murmur Resp; clear anteriorly, few bibasilar crackles posteriorly GI; soft non tender, benign Neuro; CN intact, opens eyes, makes some eye contact, otherwise just stares with out interaction. Can not move hands or arms, legs to any sig extent Lab and Diagnostics Result Diagram: 10/14/16 0658 10/14/16 0658 Microbiology Blood cultures pending MRSA swab pending X-Rays, CTs and MRIs CT BRAIN WITHOUT CONTRAST IMPRESSION: No acute disease. Dictated by: Hemant Gallegos M.D. on 08/23/2016 CT BRAIN WITHOUT CONTRAST IMPRESSION: 1. Diffuse bilateral hypodensity of the globus pallidus. This is a new finding when compared with the study dated 08/23/16. Differential considerations include anoxic injury, carbon monoxide neurotoxicity, excessive alcohol ingestion, and methanol or ethylene glycol ingestion. Dictated by: Dinora Kang M.D. 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 Dictated by: Jacob Mosqueda M.D. on 08/28/2016 MRI STROKE PROTOCOL IMPRESSION: BRAIN MRI: Continued worsening of ischemic injury to the brain parenchyma, symmetric bilaterally, and best seen in the deep white matter of the lentiform nuclei, the wolfe radiata, and the centrum semiovale. No associated hemorrhage. BRAIN MR ANGIOGRAM: No acute disease to the intracranial arterial vasculature. NECK MR ANGIOGRAM: Normal cervical MR angiogram. The estimate of stenosis included in the report of the imaging study was calculated using the NASCET method Dictated by: Jack Padilla M.D. on 09/15/2016 CT CHEST WITHOUT CONTRAST IMPRESSION: Small basal left pleural effusion is unchanged, with associated left lower lobe compressive atelectasis. Superimposed pneumonia therefore cannot be excluded. Dictated by: Binh Ochoa M.D. on 09/07/2016 at 13:47 US RENAL SONOGRAM IMPRESSION: No hydronephrosis. Right renal cyst. Dictated by: Shobha Vale M.D. on 08/24/2016 US ABDOMEN, LIMITED IMPRESSION: Cholelithiasis, without justin gallbladder wall thickening to suggest acute cholecystitis at this time. Dictated by: Binh Ochoa M.D. on 09/07/2016 MR ABDOMEN MRCP IMPRESSION: 1. Markedly limited study due to motion artifact. 2. Cholelithiasis without evidence of cholecystitis. 3. No biliary ductal dilatation or definite choledocholithiasis. 4. No peripancreatic edema to suggest pancreatitis an MRI. No discrete pseudocyst identified. Dictated by: Bruce Valadez M.D. on 09/08/2016 at 17:47 US ABDOMEN IMPRESSION: 1. Cholelithiasis. 2. Mild gallbladder wall thickening. Acute cholecystitis cannot be excluded. 3. Echogenic liver. Finding typically represents fatty infiltration; however, finding is nonspecific and correlation with clinical and laboratory findings is recommended to exclude other etiologies including hepatic cirrhosis. 4. Slightly echogenic right kidney suspicious for developing medical renal disease. Please correlate with clinical and laboratory data. Dictated by: Swathi Jimenes MD, PhD on 08/29/2016 US ABDOMEN, LIMITED IMPRESSION: Cholelithiasis, without justin gallbladder wall thickening to suggest acute cholecystitis at this time. Dictated by: Binh Ochoa M.D. on 09/07/2016 X-RAY CHEST ONE VIEW, PORTABLE IMPRESSION: No acute disease is seen a semiupright portable chest. Tubes are considered appropriate radiographically. Dictated by: Hemant Gallegos M.D. on 08/23/2016 X-RAY CHEST ONE VIEW, PORTABLE IMPRESSION: Support lines as above. Otherwise, no acute pulmonary process. Dictated by: Shobha Vale M.D. on 08/24/2016 X-RAY CHEST ONE VIEW, PORTABLE IMPRESSION: No acute cardiopulmonary disease process. Dictated by: Swathi Jimenes MD, PhD on 08/25/2016 X-RAY CHEST ONE VIEW, PORTABLE IMPRESSION: 1. Left basilar atelectasis. Otherwise lungs are clear. 2. ET and enteric tubes. Dictated by: Jacob Mosqueda M.D. on 08/27/2016 at 9:53 X-RAY CHEST ONE VIEW, PORTABLE IMPRESSION: Stable left basilar atelectasis and support lines. Dictated by: Jacob Mosqueda M.D. on 08/28/2016 at 7:54 Date of Service: 09/15/16 1757 PROCEDURE: MRI STROKE PROTOCOL ([id number]) IMPRESSION: BRAIN MRI: Continued worsening of ischemic injury to the brain parenchyma, symmetric bilaterally, and best seen in the deep white matter of the lentiform nuclei, the wolfe radiata, and the centrum semiovale. No associated hemorrhage. BRAIN MR ANGIOGRAM: No acute disease to the intracranial arterial vasculature. NECK MR ANGIOGRAM: Normal cervical MR angiogram. The estimate of stenosis included in the report of the imaging study was calculated using the NASCET method Dictated by: Jack Padilla M.D. on 09/15/2016 at 21:36 Approved by: Jack Padilla M.D. on 09/15/2016 at 21:42 Additional Diagnostics ABG DateTimeAnalyzed 10:20:00 -_ pH ____7.354 - 7.350 7.450 pCO2 ___31.5__ -mmHg 35.0 45.0 pO2 160 -mmHg 69.0 116 HCO3- ___17.1__ -mmol/L 22.0 26.0 FIO2 ___45.0__ -% PRVC 20 - PEEP ____8.0__ -cmH2O Assessment & Plan 41 year old male with known history of alcohol and drug use presented unresponsive after being found with vomit around him, sedated and intubated for acute hypoxemic respiratory failure secondary to aspiration for 5 days and extubated on hospital day 6 following successful spontaneous breathing trial. Patient developed acute anoxic brain injury secondary to hypoxia.Patient had large volume of vomit suctioned out in the ED. initial toxicology screen done only for salycilate, alcohol and acetaminophen which is unremarkable. Initial EEG showed evidence of slowing but no other abnormalities to suggest that the patient is having clinical seizures causing his symptoms. - Intubated on 08/23/16 , Extubated on 08/28/16. Repeat MRI of brain on 09/15/16 showing: "Continued worsening of ischemic injury to the brain parenchyma, symmetric bilaterally". Given no obvious source of infection and remote likelihood of vasculitis, per discussion with Dr. Jara a trial of steroid therapy (Prednisone 80mg daily x 3 days) given on 09/17/16 to see if we will achieve any significant improvement in neuro symptoms. No obvious improvement noted with 3 days of Prednisone treatment.Neuro reviewed this case with with [facility] neurology. Constipation, , stable - Improved - Bisacodyl PRN Fever, new, active -source unclear, no obvious new source of infection -CBC with diff, procalcitonin, bmp and repeat cxr tomorrow -I have not restarted antibiotics yet but watch carefully for new focus of infection especially aspiration, -will have speech re-evaluate for aspiration, continue IV fluids for now. Acute anoxic Brain Injury, Acute dysphagia, poa, improving - patient is responding to voice and pain, able to say simple words - barium swallow showed silent aspiration to liquids, otherwise normal - family does not want PEG - Amantadine 200 bid, at goal, per neurology - c/w PT/OT Diabetes Insipidus, poa, stable - nephrology recommends DDVAP 20mch hs per nephrology. - as patient now has some hyponatremia I spoke with Dr Whatley, plan is to stop the ddavp, watch I&O's overnight, Dr Whatley will re-evaluate in AM Acute Kidney Injury secondary to ATN present on admission. Resolved - requiring temporary dialysis - Unknown history of kidney injury. - Hemodialysis done daily starting 08/25/16 and then stopped. No longer on hemodialysis and catheter removed Questionable Acute Cholecystitis, based on HIDA scan and abdominal CT. - Resolved - Gen. surgery was consulted, Dr. Dash - MRCP was negative for Acute Pancreatitis and Chronic cholecystitis. - Resolved cholelithiasis w/o choledocholithiasis. - TPN stopped on 09/06/16 as this was thought to be worsening cholecystitis and pancreatitis. Acute Rhabdomyolysis, poa, resolved - resolved Acute stage II ulcers in the buttock areas, present on admission, stable - Continue with wound care and supportive care History of alcohol dependence, poa, stable - thiamin History of drug dependence, poa, stable - Known user of cocaine and ice - Per family, last known use is around 5 months ago. DVT prophylaxis- sequential compression device, heparin Plan of care was discussed with family member who was present at the bedside. She verbalized understanding and approved plan of care. GI Prophylaxis: Not indicated (Patient extubated) VTE Prophylaxis: Sub-Q Heparin (Unfractionated), SCDs VTE Mechanical Devices: Intermittant Pneumatic CD Resuscitation Status: CPR: Attempt Resuscitation ( is ADM) Gilbert Ford MD Oct 14, 2016 13:58
--- NOTE | 2016-10-14 17:05 | NUR ---
Social Work Note: Continued Discharge Planning Data& Assessment: PRODUCE ASSOCIATE met with pt at bedside to check in about discharge planning with the assistance of the preschool substitute teacher stick. Pt Stella confirmed that she has obtained a hospital bed for the pt and are looking into air mattresses for the hospital bed. Pt states that the [employer] discussed before is a good michele but they would like to know more about air mattresses. PRODUCE ASSOCIATE to request loan review officer consult to discuss air mattresses with pt and which mattress would be most appropriate for pt. Pt states she has not acquired the ann lift yet but she is in the process of obtaining one that she has been looking at in the community. Pt confirmed she still has the information that the equipment maintenance tech provided her but she is interested to know what vitamins pt has been provided during this hospitalization to supplement his diet once at home. Pt also interested in the pads that are being used underneath pt at this time. RN notified of these requests. Pt states she is hoping pt will be able to transport home in her car. Pt trunk strength is poor at this time, PRODUCE ASSOCIATE to continue to follow for safe transportation home. PRODUCE ASSOCIATE inquired about family supports and pt uncle who is traveling from [place] on 10/26/2016. Pt explained she has asked pt's family for help and when the uncle comes to visit, they will have a family meeting to discuss whether or not Santiago will remain here vs. going back to [place] for his care. PRODUCE ASSOCIATE asked pt if there was any other information she needs in preparation for pt discharge home in the near future. Pt denies any needs at this . Pt continues to practice exercises with pt in bed and continues to be an active participant in his care during this hospitalization. PRODUCE ASSOCIATE to continue to check in with pt regarding obtaining the medical equipment necessary for pt discharge home. PRODUCE ASSOCIATE to continue to follow. Plan: Anticipated discharge home when stable pending pt family obtaining necessary equipment to maintain safety in the home. Pt in process of obtaining a mattress to prevent wounds and a ann lift. PRODUCE ASSOCIATE to continue to check in with pt . PRODUCE ASSOCIATE to continue to follow. JEFF Swan
[2016-10-15] VITALS (9 sets, daily range): BP systolic 114–135; BP diastolic 73–92; PULSE 99–111; RESP 16–20; O2SAT 97–99
[2016-10-15] MEDS: Heparin 5,000 Unit/mL Inj SUBQ SCH ×3 (01:02→16:39)
[2016-10-15] MEDS: 0.9% Sodium Chloride 1,000 ML IV SCH ×2 (04:20→09:03)
--- NOTE | 2016-10-15 04:55 | NUR ---
No Change In Condition Pt. VSS with Sinus Tachycardia per palpation, auscultation, V/S machine and potline monitor. No issues taking medication and continues to be on 100 mL/Hr N/S via IV in his Rt. arm. WCTM
[2016-10-15 07:13] LABS: BASOPHILS % (AUTO) 0.4 % (0-3); EOSINOPHILS % (AUTO) 2.5 % (0-5); MONOCYTES % (AUTO) 7.8 % (4-12); Mean Corpuscular Hemoglobin 29.9 pg (27.0-35.0); Mean Corpuscular Volume 90.1 fL (81-100); NEUTROPHILS % (AUTO) 62.7 % (40-74); Platelet Count 249 bil/L (150-400)
--- NOTE | 2016-10-15 09:04 | DRSVH ---
PROCEDURE: X-RAY CHEST ONE VIEW, PORTABLE ([id number]) INDICATIONS: cough TECHNIQUE: One view of the chest was acquired. COMPARISON: [facility], CT, CT CHEST WO CON, 09/30/2016, 17:08. [facility], CR, XR CHEST 1VW (PORTABLE), 10/13/2016, 15:32. FINDINGS: Surgical changes and devices: None. Lungs and pleura: No pleural effusions or pneumothorax. Patchy opacity in the left lung base increas ed slightly in size compared to 10/13/16. Mediastinum: Mediastinal contours appear normal. Heart size is normal. Bones and chest wall: No suspicious bony lesions. Overlying soft tissues appear unremarkable. IMPRESSION: Left basilar opacity suspicious for pneumonia versus aspiration. Dictated by: Swathi Jimenes MD, PhD on 10/15/2016 at 9:01 Approved by: Swathi Jimenes MD, PhD on 10/15/2016 at 9:02
[2016-10-15] MEDS: AMANTADINE 10 MG/ML PO SCH ×2 (09:10→20:56)
--- NOTE | 2016-10-15 10:57 | PCM.PNNEPH ---
Subjective Date of Service Oct 15, 2016 Subjective Our service was asked to reevaluate the patient by Dr. Ayoub from the hospitalist service. He was concerned about patient's mild hyponatremia and wanted are important. I am quite familiar with Mr. Ann earlier in his hospitalization when our service was consulted for acute tubular necrosis secondary to rhabdomyolysis. He underwent several weeks of dialysis but had spontaneous recovery of his renal function. Once his renal function was back to normal he consider continued to have considerable polyuria in the face of normal glucose his sodium was a bit elevated and his polyuria continued wave beyond that which would be expected for somebody in her diuretic phase of acute tubular necrosis. In light of his history of well-documented anoxic encephalopathy I was concerned about sexual diabetes insipidus. He was started on DDAVP and had prompt resolution of his diuresis and his sodium levels. He did not require further supplementation with IV fluids and he was maintained on 2 sprays of DDAVP intranasally a day. Since we signed off his case several weeks ago the patient no longer requires feeding tube and is able to take off food by being fed. His Espinoza catheter has been removed and he is currently on a diaper hands were unable to measure his urine output. His blood pressures have been good as has his appetite. In the last several days his sodium levels have been in the mid to low 130 range. He has not been hypotensive nor has he had any diarrhea. He is currently not on any medications such as a diuretic or nonsteroidals or could be aggravating his hyponatremia. I had suggested to Dr. Ayoub to hold his DDAVP for a day or 2 and see if there was any change in his chemistries. 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 He is currently getting IV fluids and I would like to stop these for now. Exam Vital Signs Vital Sign - Last Date Time Temp Pulse Resp B/P Pulse Ox O2 Delivery O2 Flow Rate FiO2 10/15/16 09:27 105 10/15/16 05:30 37.4 16 118/76 98 Room Air Intake and Output 10/14/16 10/14/16 10/15/16 Cumulative From/Thru 15:00 23:00 07:00 08/23/16 05:20 - 10/15/16 06:20 Intake Total 3011 ml 2174 ml 011763 ml Output Total 008727 ml Balance 3011 ml 2174 ml 81150 ml Intake Oral 400 ml 3377 ml IV Total 2611 ml 2174 ml 24151 ml Tube Feeding 32965 ml TPN/PPN 1526 ml Tube Irrigant 97573 ml Output Urine Total 977008 ml Stool Total 63738 ml Gastric Drainage Total 1070 ml Ultrafiltrate 4700 ml Other 330 ml # Voids 4 2 67 # Bowel Movements 0 37 Exam The patient is awake and is able to track with his eyes. Sclerae are pale and there is no evidence of any mucous membrane dryness. Neck is supple without adenopathy, thyromegaly, or jugular venous distention. Lungs are clear to auscultation. Heart is regular and rhythmical with soft systolic murmur. Abdomen is soft without any tenderness or rebound guarding masses or hepatosplenomegaly. Extremities not showing any evidence of any clubbing, cyanosis, or edema. Turgor is good and there is no evidence of any skin rashes. Lab and Diagnostics Result Diagram: 10/15/1664410/15/16644 Microbiology Blood cultures pending MRSA swab pending X-Rays, CTs and MRIs CT BRAIN WITHOUT CONTRAST IMPRESSION: No acute disease. Dictated by: Hemant Gallegos M.D. on 08/23/2016 CT BRAIN WITHOUT CONTRAST IMPRESSION: 1. Diffuse bilateral hypodensity of the globus pallidus. This is a new finding when compared with the study dated 08/23/16. Differential considerations include anoxic injury, carbon monoxide neurotoxicity, excessive alcohol ingestion, and methanol or ethylene glycol ingestion. Dictated by: Dinora Kang M.D. 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 Dictated by: Jacob Mosqueda M.D. on 08/28/2016 MRI STROKE PROTOCOL IMPRESSION: BRAIN MRI: Continued worsening of ischemic injury to the brain parenchyma, symmetric bilaterally, and best seen in the deep white matter of the lentiform nuclei, the wolfe radiata, and the centrum semiovale. No associated hemorrhage. BRAIN MR ANGIOGRAM: No acute disease to the intracranial arterial vasculature. NECK MR ANGIOGRAM: Normal cervical MR angiogram. The estimate of stenosis included in the report of the imaging study was calculated using the NASCET method Dictated by: Jack Padilla M.D. on 09/15/2016 CT CHEST WITHOUT CONTRAST IMPRESSION: Small basal left pleural effusion is unchanged, with associated left lower lobe compressive atelectasis. Superimposed pneumonia therefore cannot be excluded. Dictated by: Binh Ochoa M.D. on 09/07/2016 at 13:47 US RENAL SONOGRAM IMPRESSION: No hydronephrosis. Right renal cyst. Dictated by: Shobha Vale M.D. on 08/24/2016 US ABDOMEN, LIMITED IMPRESSION: Cholelithiasis, without justin gallbladder wall thickening to suggest acute cholecystitis at this time. Dictated by: Binh Ochoa M.D. on 09/07/2016 MR ABDOMEN MRCP IMPRESSION: 1. Markedly limited study due to motion artifact. 2. Cholelithiasis without evidence of cholecystitis. 3. No biliary ductal dilatation or definite choledocholithiasis. 4. No peripancreatic edema to suggest pancreatitis an MRI. No discrete pseudocyst identified. Dictated by: Bruce Valadez M.D. on 09/08/2016 at 17:47 US ABDOMEN IMPRESSION: 1. Cholelithiasis. 2. Mild gallbladder wall thickening. Acute cholecystitis cannot be excluded. 3. Echogenic liver. Finding typically represents fatty infiltration; however, finding is nonspecific and correlation with clinical and laboratory findings is recommended to exclude other etiologies including hepatic cirrhosis. 4. Slightly echogenic right kidney suspicious for developing medical renal disease. Please correlate with clinical and laboratory data. Dictated by: Swathi Jimenes MD, PhD on 08/29/2016 US ABDOMEN, LIMITED IMPRESSION: Cholelithiasis, without justin gallbladder wall thickening to suggest acute cholecystitis at this time. Dictated by: Binh Ochoa M.D. on 09/07/2016 X-RAY CHEST ONE VIEW, PORTABLE IMPRESSION: No acute disease is seen a semiupright portable chest. Tubes are considered appropriate radiographically. Dictated by: Hemant Gallegos M.D. on 08/23/2016 X-RAY CHEST ONE VIEW, PORTABLE IMPRESSION: Support lines as above. Otherwise, no acute pulmonary process. Dictated by: Shobha Vale M.D. on 08/24/2016 X-RAY CHEST ONE VIEW, PORTABLE IMPRESSION: No acute cardiopulmonary disease process. Dictated by: Swathi Jimenes MD, PhD on 08/25/2016 X-RAY CHEST ONE VIEW, PORTABLE IMPRESSION: 1. Left basilar atelectasis. Otherwise lungs are clear. 2. ET and enteric tubes. Dictated by: Jacob Mosqueda M.D. on 08/27/2016 at 9:53 X-RAY CHEST ONE VIEW, PORTABLE IMPRESSION: Stable left basilar atelectasis and support lines. Dictated by: Jacob Mosqueda M.D. on 08/28/2016 at 7:54 Date of Service: 09/15/16 1757 PROCEDURE: MRI STROKE PROTOCOL ([id number]) IMPRESSION: BRAIN MRI: Continued worsening of ischemic injury to the brain parenchyma, symmetric bilaterally, and best seen in the deep white matter of the lentiform nuclei, the wolfe radiata, and the centrum semiovale. No associated hemorrhage. BRAIN MR ANGIOGRAM: No acute disease to the intracranial arterial vasculature. NECK MR ANGIOGRAM: Normal cervical MR angiogram. The estimate of stenosis included in the report of the imaging study was calculated using the NASCET method Dictated by: Jack Padilla M.D. on 09/15/2016 at 21:36 Approved by: Jack Padilla M.D. 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 I would like to restart the DDAVP and I feel that he is probably going to need to be continued on DDAVP for the foreseeable future. Thank you for allowing us to reevaluate this unfortunate gentleman and should you have any problems or any questions between now and discharged restart hesitate to contact our office Ace Whatley DO Oct 15, 2016 10:57
[2016-10-15] MEDS: Desmopressin 100 mCg/mL 5 mL Nasal Spray NASAL SCH ×2 (11:46→20:56)
--- NOTE | 2016-10-15 11:56 | NUR ---
Lunch at bedside feeding patient food brought from home. has homemade soup, she is feeding him the broth, occasional chewing noted. Also has refried beans, yogurt While in room doing VS enc to cough, weak No coughing noted.
--- NOTE | 2016-10-15 15:05 | NUR ---
Waffle mattress overlay Placed waffle mattress with wound care nurse. 42 pumps of air per directions.
--- NOTE | 2016-10-15 16:07 | NUR ---
Social Work: Continued Discharge Planning Data & Assessment: Patient is on day 53 of hospitalization for anoxic brain injury per H&P. EMR reviewed. Patient was discussed in morning rounds. SW updated staff on 's concerns about mattress. SW also inquired about reasoning for wound care consult. SW was informed that wound care was consulted to determine appropriate air mattress. SW was informed by RN that wound care saw patient and recommended a waffle mattress overlay for patient. Handouts have been printed and provided to by primary RN. SW will continue to follow. Plan: Patient will discharge home with family when medically ready. SW will continue to follow. JEFF Quinones
--- NOTE | 2016-10-15 20:32 | PCM.PNMED ---
Subjective Date of Service Oct 15, 2016 Subjective This is a 41 yo male with anoxic brain injury LOS >50 days. He has been waxing and waning with improvement in minor motor skills and mentation. he was thought to have improved enough to be taking po intake w/o aspiration . On DDVAP and hyponatremic . His ago, thus DDVAP was stopped. Dr. Whatley is asked to see the patient to adjust the nasal spray dose. Patient was noted to be tracking people, speaking Hungarian and Upper Sorbian. There was a plan at one time from the family to to send him to [place] as he has no insurance coverage in this country. Has had intermittent fevers, was fever free for 4 days or so when he started spiking fevers again/ Fever workup was once again ordered in the last couple of days. Patient is alert this am, tracking people, answering questions appropriately in Hungarian. He was unable to move his hand, fingers, unable to squeeze my hand. Asking for water. Exam Vital Signs Vital Sign - Last Date Time Temp Pulse Resp B/P Pulse Ox O2 Delivery O2 Flow Rate FiO2 10/14/16 20:00 120 10/14/16 18:10 37.9 18 126/84 97 Room Air Intake and Output 10/13/16 10/13/16 10/14/16 Cumulative From/Thru 15:00 23:00 07:00 08/23/16 05:20 - 10/14/16 06:21 Intake Total 600 ml 200 ml 671144 ml Output Total 500 ml 053389 ml Balance 100 ml 200 ml 69915 ml Intake Oral 600 ml 200 ml 2977 ml IV Total 22192 ml Tube Feeding 18229 ml TPN/PPN 1526 ml Tube Irrigant 38083 ml Output Urine Total 500 ml 390848 ml Stool Total 43925 ml Gastric Drainage Total 1070 ml Ultrafiltrate 4700 ml Other 330 ml # Voids 3 1 61 # Bowel Movements 37 Exam Vital signs on 10/15/16: Temperature 37.2 pulse 110 respirations 18 blood pressure 118/73 pulse ox 98% on room air Skin; warm, dry, no rash, no sign of phlebitis on arms legs. HEENT; adequate hydration, patient opens mouth to command, no lesions CV; present, no murmur Resp; clear anteriorly, few bibasilar crackles posteriorly GI; soft non tender, benign Neuro; opens eyes, makes some eye contact, ia verbally responsive, though minimally. Can not move hands or arms, legs to any sig extent Psych No anxiety or agitation IVs and Medications Medications Reviewed: Medications were reviewed in detail Lab and Diagnostics Laboratory Tests Test 10/15/16 06:45 White Blood Count 12.8th/mm3 (3.8-10.1) Red Blood Count 3.34mil/mm3 (4.40-5.80) Hemoglobin 10.0g/dL (13.8-17.2) Hematocrit 30.1% (41.0-50.0) Mean Corpuscular Volume 90.1fL (81-100) Mean Corpuscular Hemoglobin 29.9pg (27.0-35.0) Mean Corpuscular Hemoglobin Concent 33.2% (32.0-37.0) Red Cell Distribution Width 14.7% (12.3-15.4) Platelet Count 249bil/L (150-400) Neutrophils (%) (Auto) 62.7% (40-74) Lymphocytes (%) (Auto) 20.9% (14-46) Monocytes (%) (Auto) 7.8% (4-12) Eosinophils (%) (Auto) 2.5% (0-5) Basophils (%) (Auto) 0.4% (0-3) Sodium Level 138mEq/L (134-144) Potassium Level 3.6mEq/L (3.5-5.2) Chloride Level 102mEq/L (97-108) Carbon Dioxide Level 19mmol/L (18-29) Blood Urea Nitrogen 11mg/dL (6-24) Creatinine < 0.30mg/dL (0.76-1.27) Estimat Glomerular Filtration Rate 353mL/min (>59) Glucose Level 116mg/dL (60-99) Calcium Level 8.6mg/dL (8.5-10.1) Procalcitonin 0.08ng/mL (0.00-0.08) Microbiology 10/13/16 Blood Culture - Preliminary, Resulted No growth at 2 days; culture examined... 09/16/16 Gram Stain - Final, Complete 09/16/16 Culture & Sensitivity - Final, Complete No growth. 09/16/16 Escherichia coli K1 (PCR) - Final, Complete Not Detected 09/16/16 Haemophilis influenzae (PCR)(LILY) - Final, Complete Not Detected 09/16/16 Listeria DNA (PCR) - Final, Complete Not Detected 09/16/16 Neisseria meningitidis (PCR)(LILY) - Final, Complete Not Detected 09/16/16 Streptococcus agalactiae (PCR)(LILY) - Final, Complete Not Detected 09/16/16 Streptococcus pneumoniae (PCR)(LILY) - Final, Complete Not Detected 09/16/16 Cytomegalovirus DNA (PCR) (LILY) - Final, Complete Not Detected 09/16/16 Enterovirus RNA (PCR) - Final, Complete Not Detected 09/16/16 Human Herpesvirus 6 - Final, Complete Not Detected 09/16/16 Herpes Simplex Virus I DNA (PCR)LILY - Final, Complete Not Detected 09/16/16 Herpes Simplex Virus II DNA (PCR) M - Final, Complete Not Detected 09/16/16 Parechovirus RNA (PCR) - Final, Complete Not Detected 09/16/16 Varicella-Zoster Virus DNA (PCR) MC - Final, Complete Not Detected 09/16/16 Cryptococcus neoformans/mike (PCR) - Final, Complete 08/29/16 C. difficile DNA Amplification - Final, Complete 10/13/16 Adenovirus DNA (PCR) - Final, Complete Not Detected 10/13/16 Coronavirus 229E PCR - Final, Complete Not Detected 10/13/16 Coronavirus HKU1 PCR - Final, Complete Not Detected 10/13/16 Coronavirus NL63 PCR - Final, Complete Not Detected 10/13/16 Coronavirus OC43 PCR - Final, Complete Not Detected 10/13/16 Influenza Type A (PCR) - Final, Complete Not Detected 10/13/16 Influenza Type B (PCR) - Final, Complete Not Detected 10/13/16 Human Metapneumovirus (PCR) (LILY) - Final, Complete Not Detected 10/13/16 Rhinovirus (PCR)(LILY) - Final, Complete Not Detected 10/13/16 Parainfluenza Virus Type 1 (PCR) - Final, Complete Not Detected 10/13/16 Parainfluenza Virus Type 2 (PCR) - Final, Complete Not Detected 10/13/16 Parainfluenza Virus Type 3 (PCR) - Final, Complete Not Detected 10/13/16 Parainfluenza Virus Type 4 (NAAT) - Final, Complete Not Detected 10/13/16 Respiratory Syncytial Virus (PCR)IA - Final, Complete Not Detected 10/13/16 Chlamydia pneumoniae (PCR) - Final, Complete Not Detected 10/13/16 Mycoplasma pneumoniae DNA Detection - Final, Complete 09/25/16 Urine Culture - Final, Complete Mixed Urogenital Christy 08/31/16 Culture & Sensitivity - Final, Complete No growth. Result Diagram: 10/14/16 0658 10/14/16 0658 Microbiology Blood cultures pending MRSA swab pending X-Rays, CTs and MRIs CT BRAIN WITHOUT CONTRAST IMPRESSION: No acute disease. Dictated by: Hemant Gallegos M.D. on 08/23/2016 CT BRAIN WITHOUT CONTRAST IMPRESSION: 1. Diffuse bilateral hypodensity of the globus pallidus. This is a new finding when compared with the study dated 08/23/16. Differential considerations include anoxic injury, carbon monoxide neurotoxicity, excessive alcohol ingestion, and methanol or ethylene glycol ingestion. Dictated by: Dinora Kang M.D. 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 Dictated by: Jacob Mosqueda M.D. on 08/28/2016 MRI STROKE PROTOCOL IMPRESSION: BRAIN MRI: Continued worsening of ischemic injury to the brain parenchyma, symmetric bilaterally, and best seen in the deep white matter of the lentiform nuclei, the wolfe radiata, and the centrum semiovale. No associated hemorrhage. BRAIN MR ANGIOGRAM: No acute disease to the intracranial arterial vasculature. NECK MR ANGIOGRAM: Normal cervical MR angiogram. The estimate of stenosis included in the report of the imaging study was calculated using the NASCET method Dictated by: Jack Padilla M.D. on 09/15/2016 CT CHEST WITHOUT CONTRAST IMPRESSION: Small basal left pleural effusion is unchanged, with associated left lower lobe compressive atelectasis. Superimposed pneumonia therefore cannot be excluded. Dictated by: Binh Ochoa M.D. on 09/07/2016 at 13:47 US RENAL SONOGRAM IMPRESSION: No hydronephrosis. Right renal cyst. Dictated by: Shobha Vale M.D. on 08/24/2016 US ABDOMEN, LIMITED IMPRESSION: Cholelithiasis, without justin gallbladder wall thickening to suggest acute cholecystitis at this time. Dictated by: Binh Ochoa M.D. on 09/07/2016 MR ABDOMEN MRCP IMPRESSION: 1. Markedly limited study due to motion artifact. 2. Cholelithiasis without evidence of cholecystitis. 3. No biliary ductal dilatation or definite choledocholithiasis. 4. No peripancreatic edema to suggest pancreatitis an MRI. No discrete pseudocyst identified. Dictated by: Bruce Valadez M.D. on 09/08/2016 at 17:47 US ABDOMEN IMPRESSION: 1. Cholelithiasis. 2. Mild gallbladder wall thickening. Acute cholecystitis cannot be excluded. 3. Echogenic liver. Finding typically represents fatty infiltration; however, finding is nonspecific and correlation with clinical and laboratory findings is recommended to exclude other etiologies including hepatic cirrhosis. 4. Slightly echogenic right kidney suspicious for developing medical renal disease. Please correlate with clinical and laboratory data. Dictated by: Swathi Jimenes MD, PhD on 08/29/2016 US ABDOMEN, LIMITED IMPRESSION: Cholelithiasis, without justin gallbladder wall thickening to suggest acute cholecystitis at this time. Dictated by: Binh Ochoa M.D. on 09/07/2016 X-RAY CHEST ONE VIEW, PORTABLE IMPRESSION: No acute disease is seen a semiupright portable chest. Tubes are considered appropriate radiographically. Dictated by: Hemant Gallegos M.D. on 08/23/2016 X-RAY CHEST ONE VIEW, PORTABLE IMPRESSION: Support lines as above. Otherwise, no acute pulmonary process. Dictated by: Shobha Vale M.D. on 08/24/2016 X-RAY CHEST ONE VIEW, PORTABLE IMPRESSION: No acute cardiopulmonary disease process. Dictated by: Swathi Jimenes MD, PhD on 08/25/2016 X-RAY CHEST ONE VIEW, PORTABLE IMPRESSION: 1. Left basilar atelectasis. Otherwise lungs are clear. 2. ET and enteric tubes. Dictated by: Jacob Mosqueda M.D. on 08/27/2016 at 9:53 X-RAY CHEST ONE VIEW, PORTABLE IMPRESSION: Stable left basilar atelectasis and support lines. Dictated by: Jacob Mosqueda M.D. on 08/28/2016 at 7:54 Date of Service: 09/15/16 1757 PROCEDURE: MRI STROKE PROTOCOL ([id number]) IMPRESSION: BRAIN MRI: Continued worsening of ischemic injury to the brain parenchyma, symmetric bilaterally, and best seen in the deep white matter of the lentiform nuclei, the wolfe radiata, and the centrum semiovale. No associated hemorrhage. BRAIN MR ANGIOGRAM: No acute disease to the intracranial arterial vasculature. NECK MR ANGIOGRAM: Normal cervical MR angiogram. The estimate of stenosis included in the report of the imaging study was calculated using the NASCET method Dictated by: Jack Padilla M.D. on 09/15/2016 at 21:36 Approved by: Jack Padilla M.D. on 09/15/2016 at 21:42 Additional Diagnostics ABG DateTimeAnalyzed 10:20:00 -_ pH ____7.354 - 7.350 7.450 pCO2 ___31.5__ -mmHg 35.0 45.0 pO2 160 -mmHg 69.0 116 HCO3- ___17.1__ -mmol/L 22.0 26.0 FIO2 ___45.0__ -% PRVC 20 - PEEP ____8.0__ -cmH2O Assessment & Plan 41 year old male with known history of alcohol and drug use presented unresponsive after being found with vomit around him, sedated and intubated for acute hypoxemic respiratory failure secondary to aspiration for 5 days and extubated on hospital day 6 following successful spontaneous breathing trial. Patient developed acute anoxic brain injury secondary to hypoxia.Patient had large volume of vomit suctioned out in the ED. initial toxicology screen done only for salycilate, alcohol and acetaminophen which is unremarkable. Initial EEG showed evidence of slowing but no other abnormalities to suggest that the patient is having clinical seizures causing his symptoms. - Intubated on 08/23/16 , Extubated on 08/28/16. Repeat MRI of brain on 09/15/16 showing: "Continued worsening of ischemic injury to the brain parenchyma, symmetric bilaterally". Given no obvious source of infection and remote likelihood of vasculitis, per discussion with Dr. Jara a trial of steroid therapy (Prednisone 80mg daily x 3 days) given on 09/17/16 to see if we will achieve any significant improvement in neuro symptoms. No obvious improvement noted with 3 days of Prednisone treatment.Neuro reviewed this case with with [facility] neurology. Fever, new, active -source unclear, no obvious new source of infection -CXR 10/14 showed Left basilar opacity suspicious for pneumonia versus aspiration. Blood CX NGTD -will have speech re-evaluate for aspiration --10/13 resp panel is neg Acute anoxic Brain Injury, Acute dysphagia, poa, improving - patient is responding to voice and pain, able to say simple words - barium swallow showed silent aspiration to liquids, otherwise normal - family does not want PEG - Amantadine 200 bid, at goal, per neurology - c/w PT/OT Diabetes Insipidus, poa, stable - nephrology recommends DDVAP 20mch hs per nephrology. -Dr. Whatley is consulted again on the case due to hyponatremia, who has seen the patient this a.m. recommend stopping IV fluids, restarting DDVAP, we appreciate his time and recommendation. Acute Kidney Injury secondary to ATN present on admission. Resolved - requiring temporary dialysis - Unknown history of kidney injury. - Hemodialysis done daily starting 08/25/16 and then stopped. No longer on hemodialysis and catheter removed Questionable Acute Cholecystitis, based on HIDA scan and abdominal CT. - Resolved - Gen. surgery was consulted, Dr. Dash - MRCP was negative for Acute Pancreatitis and Chronic cholecystitis. - Resolved cholelithiasis w/o choledocholithiasis. - TPN stopped on 09/06/16 as this was thought to be worsening cholecystitis and pancreatitis. Acute Rhabdomyolysis, poa, resolved - resolved Acute stage II ulcers in the buttock areas, present on admission, stable - Continue with wound care and supportive care History of alcohol dependence, poa, stable - thiamin History of drug dependence, poa, stable - Known user of cocaine and ice - Per family, last known use is around 5 months ago. Does pt have a PEG tube or not DVT prophylaxis- sequential compression device, heparin GI Prophylaxis: Not indicated (Patient extubated) VTE Prophylaxis: Sub-Q Heparin (Unfractionated), SCDs VTE Mechanical Devices: Intermittant Pneumatic CD Resuscitation Status: CPR: Attempt Resuscitation ( is ADM) Time spent 25 min Minerva Wilson DO Oct 14, 2016 21:19
[2016-10-16] MEDS: Heparin 5,000 Unit/mL Inj SUBQ SCH ×3 (00:37→17:02)
[2016-10-16 01:09] VITALS: BP 129/88; PULSE 101; RESP 16; O2SAT 98
--- NOTE | 2016-10-16 04:59 | NUR ---
Lowering HR Pt. HR has been in the high 90's and low 100's which is an improvement from the Tachycardia he has exhibited the last few days. All other VSS as usual. Takes all medications as per order and w/o issue. Had BM this shift an only one brief change needed this far. WCTM
[2016-10-16 06:12] VITALS: BP 117/75; PULSE 99; RESP 16; O2SAT 99
[2016-10-16 07:50] VITALS: BP 118/79; PULSE 93; RESP 18; O2SAT 99
[2016-10-16 08:00] VITALS: PULSE 90
[2016-10-16] MEDS: Nystatin 100,000 Unit/Gm 15 Gm Powder TOPICAL SCH ×2 (09:13→20:28)
[2016-10-16] MEDS: Desmopressin 100 mCg/mL 5 mL Nasal Spray NASAL SCH ×2 (09:14→20:28)
[2016-10-16] MEDS: AMANTADINE 10 MG/ML PO SCH ×2 (09:15→20:28)
--- NOTE | 2016-10-16 11:16 | NUR ---
Sputum When walking by room noted creamy white sputum coming from mouth down chin onto neck. Pt stated "yes" to coughing. Did have milk for breakfast, sat up for over 30 minutes and had just lowered HOB 15 minutes prior. 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
[2016-10-16 12:00] VITALS: BP 128/89; PULSE 91; RESP 18; O2SAT 100
--- NOTE | 2016-10-16 12:14 | NUR ---
Bed for home reports she bought a bed for her and it is already at the home. States she will need to buy some sheet, depends, medication but reports she as ready as possible to take home.
[2016-10-16 16:05] VITALS: BP 124/81; PULSE 88; RESP 18; O2SAT 100
--- NOTE | 2016-10-16 16:13 | NUR ---
NUTRITION FOLLOW UP: ASSESS: 41 YO male with anoxic brain injury, improved such that his diet has been advanced to pureed with nectar thick liquids. PO intake has been 25-100% of meals. RD has provided high calorie / protein diet education. PMHx: ETOH abuse. DIET: Pureed, nectar thick liquids, Glucerna and Gelatein all trays. PO intake 25% - 100% trays, including supplements. LABS: Reviewed. Glu 116. MEDICATIONS: Reviewed. GI: BM x 1 today. SKIN: Wounds healed per wound care note. ANTHROPOMETRICS: Current Wt: (09/29) 87.3 kg. Admit wt: 95.1 kg. IBW: 72.7 kg ESTIMATED NEEDS: Calories: 4093-1471 kcal/day (25-30 kcal/kg BW) Protein: 85-110 g protein (1.2-1.5 g/kg BW IBW) NUTRITION DIAGNOSIS: 1) Inadequate oral intake related to inability to consume sufficient energy due to cognition, as evidenced by PO intake of 25-100% of meals --IMPROVING. 2.) Chewing / swallowing difficulties related to anoxic brain injury as evidenced by current need for mechanically altered diet text, ST following - IMPROVED. INTERVENTION: 1) Continue to advance diet as able per ST recommendations. 2) Will continue to send supplements all trays. 3) Recommend getting new wt for pt in order to assess wt trends as last wt recorded was from 09/29. MONITOR/EVALUATE: Diet advancement / tolerance, po intake, labs, weights, nutrition status. Follow per moderate nutrition risk guidelines.
--- NOTE | 2016-10-16 17:21 | NUR ---
Mentation/mobility Pt more alert today - entire shift with occas rest periods Asking questions of staff and "when is this going to get better?" "can I feed myself?" "can you please take me to the BR?" (to ) given printed documentation on where to find adult diapers from [employer], [employer] and thickener - [facility] Pt unable to move extremities did follow commands when requested to cough, open mouth for temp and eating. grimaces when bed position changed, when asked if in pain states "no".
--- NOTE | 2016-10-16 17:45 | NUR ---
1730 pt sound asleep, arouses but unable to feed dinner at this time, will cont to try.
--- NOTE | 2016-10-16 20:52 | PCM.PNMED ---
Subjective Date of Service Oct 16, 2016 Subjective Patient is seen and examined. His tracking with his eyes but not responding verbally. Not moving his extremities. is not present in the room. Staff stated that he was alert and awake till almost 5 PM. He also was noted to ask staff "why cannot I move my hands and legs". Today's interview was done with the help of online hospital coder. His verbally nonresponse to my questions about pain level, discomfort and his well-being Exam Vital Signs Vital Sign - Last Date Time Temp Pulse Resp B/P Pulse Ox O2 Delivery O2 Flow Rate FiO2 10/16/16 06:12 36.4 99 16 117/75 99 Room Air Intake and Output 10/15/16 10/15/16 10/16/16 Cumulative From/Thru 15:00 23:00 07:00 08/23/16 05:20 - 10/16/16 06:13 Intake Total 2717 ml 1300 ml 927163 ml Output Total 581554 ml Balance 2717 ml 1300 ml 01996 ml Intake Oral 1300 ml 4677 ml IV Total 2717 ml 88715 ml Tube Feeding 00826 ml TPN/PPN 1526 ml Tube Irrigant 62975 ml Output Urine Total 309597 ml Stool Total 52846 ml Gastric Drainage Total 1070 ml Ultrafiltrate 4700 ml Other 330 ml # Voids 4 2 73 # Bowel Movements 1 38 Exam Gen.: No acute distress HEENT: Extraocular movements are intact patient is able to track with his eyes Heart: Regular rate and rhythm no S3-S4 murmurs Lungs: Anteriorly clear to auscultation no crackles or wheezes Abdomen: Nontender soft flat nondistended Extremities: Patient is unable to move his extremities Skin is warm and dry Neurological: Patient has not spoken at all today, however appears to be alert and awake, no moderate activity other than facial movements IVs and Medications Medications Reviewed: Medications were reviewed in detail Lab and Diagnostics Result Diagram: 10/15/1664410/15/16644 Microbiology Blood cultures pending MRSA swab pending X-Rays, CTs and MRIs CT BRAIN WITHOUT CONTRAST IMPRESSION: No acute disease. Dictated by: Hemant Gallegos M.D. on 08/23/2016 CT BRAIN WITHOUT CONTRAST IMPRESSION: 1. Diffuse bilateral hypodensity of the globus pallidus. This is a new finding when compared with the study dated 08/23/16. Differential considerations include anoxic injury, carbon monoxide neurotoxicity, excessive alcohol ingestion, and methanol or ethylene glycol ingestion. Dictated by: Dinora Kang M.D. 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 Dictated by: Jacob Mosqueda M.D. on 08/28/2016 MRI STROKE PROTOCOL IMPRESSION: BRAIN MRI: Continued worsening of ischemic injury to the brain parenchyma, symmetric bilaterally, and best seen in the deep white matter of the lentiform nuclei, the wolfe radiata, and the centrum semiovale. No associated hemorrhage. BRAIN MR ANGIOGRAM: No acute disease to the intracranial arterial vasculature. NECK MR ANGIOGRAM: Normal cervical MR angiogram. The estimate of stenosis included in the report of the imaging study was calculated using the NASCET method Dictated by: Jack Padilla M.D. on 09/15/2016 CT CHEST WITHOUT CONTRAST IMPRESSION: Small basal left pleural effusion is unchanged, with associated left lower lobe compressive atelectasis. Superimposed pneumonia therefore cannot be excluded. Dictated by: Binh Ochoa M.D. on 09/07/2016 at 13:47 US RENAL SONOGRAM IMPRESSION: No hydronephrosis. Right renal cyst. Dictated by: Shobha Vale M.D. on 08/24/2016 US ABDOMEN, LIMITED IMPRESSION: Cholelithiasis, without justin gallbladder wall thickening to suggest acute cholecystitis at this time. Dictated by: Binh Ochoa M.D. on 09/07/2016 MR ABDOMEN MRCP IMPRESSION: 1. Markedly limited study due to motion artifact. 2. Cholelithiasis without evidence of cholecystitis. 3. No biliary ductal dilatation or definite choledocholithiasis. 4. No peripancreatic edema to suggest pancreatitis an MRI. No discrete pseudocyst identified. Dictated by: Bruce Valadez M.D. on 09/08/2016 at 17:47 US ABDOMEN IMPRESSION: 1. Cholelithiasis. 2. Mild gallbladder wall thickening. Acute cholecystitis cannot be excluded. 3. Echogenic liver. Finding typically represents fatty infiltration; however, finding is nonspecific and correlation with clinical and laboratory findings is recommended to exclude other etiologies including hepatic cirrhosis. 4. Slightly echogenic right kidney suspicious for developing medical renal disease. Please correlate with clinical and laboratory data. Dictated by: Swathi Jimenes MD, PhD on 08/29/2016 US ABDOMEN, LIMITED IMPRESSION: Cholelithiasis, without justin gallbladder wall thickening to suggest acute cholecystitis at this time. Dictated by: Binh Ochoa M.D. on 09/07/2016 X-RAY CHEST ONE VIEW, PORTABLE IMPRESSION: No acute disease is seen a semiupright portable chest. Tubes are considered appropriate radiographically. Dictated by: Hemant Gallegos M.D. on 08/23/2016 X-RAY CHEST ONE VIEW, PORTABLE IMPRESSION: Support lines as above. Otherwise, no acute pulmonary process. Dictated by: Shobha Vale M.D. on 08/24/2016 X-RAY CHEST ONE VIEW, PORTABLE IMPRESSION: No acute cardiopulmonary disease process. Dictated by: Swathi Jimenes MD, PhD on 08/25/2016 X-RAY CHEST ONE VIEW, PORTABLE IMPRESSION: 1. Left basilar atelectasis. Otherwise lungs are clear. 2. ET and enteric tubes. Dictated by: Jacob Mosqueda M.D. on 08/27/2016 at 9:53 X-RAY CHEST ONE VIEW, PORTABLE IMPRESSION: Stable left basilar atelectasis and support lines. Dictated by: Jacob Mosqueda M.D. on 08/28/2016 at 7:54 Date of Service: 09/15/16 1757 PROCEDURE: MRI STROKE PROTOCOL ([id number]) IMPRESSION: BRAIN MRI: Continued worsening of ischemic injury to the brain parenchyma, symmetric bilaterally, and best seen in the deep white matter of the lentiform nuclei, the wolfe radiata, and the centrum semiovale. No associated hemorrhage. BRAIN MR ANGIOGRAM: No acute disease to the intracranial arterial vasculature. NECK MR ANGIOGRAM: Normal cervical MR angiogram. The estimate of stenosis included in the report of the imaging study was calculated using the NASCET method Dictated by: Jack Padilla M.D. on 09/15/2016 at 21:36 Approved by: Jack Padilla M.D. on 09/15/2016 at 21:42 Additional Diagnostics ABG DateTimeAnalyzed 10:20:00 -_ pH ____7.354 - 7.350 7.450 pCO2 ___31.5__ -mmHg 35.0 45.0 pO2 160 -mmHg 69.0 116 HCO3- ___17.1__ -mmol/L 22.0 26.0 FIO2 ___45.0__ -% PRVC 20 - PEEP ____8.0__ -cmH2O Assessment & Plan 41 year old male with known history of alcohol and drug use presented unresponsive after being found with vomit around him, sedated and intubated for acute hypoxemic respiratory failure secondary to aspiration for 5 days and extubated on hospital day 6 following successful spontaneous breathing trial. Patient developed acute anoxic brain injury secondary to hypoxia.Patient had large volume of vomit suctioned out in the ED. initial toxicology screen done only for salycilate, alcohol and acetaminophen which is unremarkable. Initial EEG showed evidence of slowing but no other abnormalities to suggest that the patient is having clinical seizures causing his symptoms. - Intubated on 08/23/16 , Extubated on 08/28/16. Repeat MRI of brain on 09/15/16 showing: "Continued worsening of ischemic injury to the brain parenchyma, symmetric bilaterally". Given no obvious source of infection and remote likelihood of vasculitis, per discussion with Dr. Jara a trial of steroid therapy (Prednisone 80mg daily x 3 days) given on 09/17/16 to see if we will achieve any significant improvement in neuro symptoms. No obvious improvement noted with 3 days of Prednisone treatment.Neuro reviewed this case with with [facility]y. Acute anoxic Brain Injury, Acute dysphagia, poa, improving - patient is responding to voice and pain, able to say simple words - barium swallow showed silent aspiration to liquids, otherwise normal - family does not want PEG - Amantadine 200 bid, at goal, per neurology - c/w PT/OT Diabetes Insipidus, poa, stable - nephrology recommends DDVAP 20mch hs per nephrology. -Dr. Whatley is consulted again on the case due to hyponatremia, who has seen the patient this a.m. recommend stopping IV fluids, restarting DDVAP, we appreciate his time and recommendation. Acute Kidney Injury secondary to ATN present on admission. Resolved - requiring temporary dialysis - Unknown history of kidney injury. - Hemodialysis done daily starting 08/25/16 and then stopped. No longer on hemodialysis and catheter removed Questionable Acute Cholecystitis, based on HIDA scan and abdominal CT. - Resolved - Gen. surgery was consulted, Dr. Dash - MRCP was negative for Acute Pancreatitis and Chronic cholecystitis. - Resolved cholelithiasis w/o choledocholithiasis. - TPN stopped on 09/06/16 as this was thought to be worsening cholecystitis and pancreatitis. Fever, intermittently acute, resolved on 10/15 -source unclear, no obvious new source of infection -CXR 10/14 showed Left basilar opacity suspicious for pneumonia versus aspiration , however this has been present on the prior chest x-rays, does not appear to be a new finding. Blood CX NGTD -will have speech re-evaluate for aspiration: ST rec"continue modified diet with aspiration precautions" --10/13 resp panel is neg Acute Rhabdomyolysis, poa, resolved - resolved Acute stage II ulcers in the buttock areas, present on admission, stable - Continue with wound care and supportive care History of alcohol dependence, poa, stable - thiamin History of drug dependence, poa, stable - Known user of cocaine and ice - Per family, last known use is around 5 months ago. DVT prophylaxis- sequential compression device, heparin Disposition: Patient's has been setting up stuff ready at home for his discharge. Pain Evaluation: Adequate Pain Control GI Prophylaxis: Not indicated (Patient extubated) VTE Prophylaxis: Sub-Q Heparin (Unfractionated), SCDs VTE Mechanical Devices: Intermittant Pneumatic CD Resuscitation Status: CPR: Attempt Resuscitation ( is ADM) Time spent 25 minutes Minerva Wilson DO Oct 16, 2016 07:25
[2016-10-17] VITALS (9 sets, daily range): BP systolic 119–137; BP diastolic 79–93; PULSE 72–109; RESP 14–20; O2SAT 96–99
[2016-10-17] MEDS: Heparin 5,000 Unit/mL Inj SUBQ SCH ×3 (01:00→17:39)
--- NOTE | 2016-10-17 06:03 | NUR ---
Skin Care/Constipation Patient alert at times, verbal with . Applesauce with meds full assist. Q2hr turns, Nystatin powder, assisting with some of the turns and ROM. was concerned that he appeared to be straining and was constipated. Per report, large BM the night before, but she insisted on prune juice. Shortly after, he had another BM while we were changing him.
[2016-10-17] MEDS: AMANTADINE 10 MG/ML PO SCH ×2 (08:38→20:38)
[2016-10-17] MEDS: Desmopressin 100 mCg/mL 5 mL Nasal Spray NASAL SCH ×2 (08:47→20:38)
[2016-10-17] MEDS: Nystatin 100,000 Unit/Gm 15 Gm Powder TOPICAL SCH ×2 (08:47→20:38)
--- NOTE | 2016-10-17 12:25 | PCM.PNMED ---
Subjective Date of Service Oct 17, 2016 Subjective Pt seen and examined, interacting appropriately. Somali interepreter was present, was present in the room, says he is physically unable to move, seems to be concerned. He has no pain otherwise, no dyspnea, no choking/no cough , no n/v He has no pain from his sacral ulcer. Exam Vital Signs Vital Sign - Last Date Time Temp Pulse Resp B/P Pulse Ox O2 Delivery O2 Flow Rate FiO2 10/17/16 11:02 37.0 96 20 123/81 99 Room Air Intake and Output 10/16/16 10/16/16 10/17/16 Cumulative From/Thru 15:00 23:00 07:00 08/23/16 05:20 - 10/17/16 06:27 Intake Total 860 ml 200 ml 630186 ml Output Total 324122 ml Balance 860 ml 200 ml 09062 ml Intake Oral 860 ml 200 ml 5737 ml IV Total 0 ml 40282 ml Tube Feeding 13387 ml TPN/PPN 1526 ml Tube Irrigant 20202 ml Output Urine Total 202577 ml Stool Total 29039 ml Gastric Drainage Total 1070 ml Ultrafiltrate 4700 ml Other 330 ml # Voids 1 3 2 79 # Bowel Movements 1 2 1 42 Exam General: Sititng up in bed, NAD HEENT: EOM intact, pupils reactive Neuro: No patellar reflexes, following commands, verbally communicative, was able to stick his tongue out but unable to move it [id number] fully, facial strength is symmetric, unable to move shoulders, other CN intact, no altered sensation Heart: RRR, no s3/s4 Lungs: CTA, no crackles anteriorly Ext no edema MSK, was moving hands slightly to embroidery assistant my hand, no movement in feet Psych: Appears to be in somewhat concerned/depressed mood IVs and Medications Medications Reviewed: Medications were reviewed in detail Lab and Diagnostics Result Diagram: 10/17/1662810/17/16628 Microbiology Blood cultures pending MRSA swab pending X-Rays, CTs and MRIs CT BRAIN WITHOUT CONTRAST IMPRESSION: No acute disease. Dictated by: Hemant Gallegos M.D. on 08/23/2016 CT BRAIN WITHOUT CONTRAST IMPRESSION: 1. Diffuse bilateral hypodensity of the globus pallidus. This is a new finding when compared with the study dated 08/23/16. Differential considerations include anoxic injury, carbon monoxide neurotoxicity, excessive alcohol ingestion, and methanol or ethylene glycol ingestion. Dictated by: Dinora Kang M.D. 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 Dictated by: Jacob Mosqueda M.D. on 08/28/2016 MRI STROKE PROTOCOL IMPRESSION: BRAIN MRI: Continued worsening of ischemic injury to the brain parenchyma, symmetric bilaterally, and best seen in the deep white matter of the lentiform nuclei, the wolfe radiata, and the centrum semiovale. No associated hemorrhage. BRAIN MR ANGIOGRAM: No acute disease to the intracranial arterial vasculature. NECK MR ANGIOGRAM: Normal cervical MR angiogram. The estimate of stenosis included in the report of the imaging study was calculated using the NASCET method Dictated by: Jack Padilla M.D. on 09/15/2016 CT CHEST WITHOUT CONTRAST IMPRESSION: Small basal left pleural effusion is unchanged, with associated left lower lobe compressive atelectasis. Superimposed pneumonia therefore cannot be excluded. Dictated by: Binh Ochoa M.D. on 09/07/2016 at 13:47 US RENAL SONOGRAM IMPRESSION: No hydronephrosis. Right renal cyst. Dictated by: Shobha Vale M.D. on 08/24/2016 US ABDOMEN, LIMITED IMPRESSION: Cholelithiasis, without justin gallbladder wall thickening to suggest acute cholecystitis at this time. Dictated by: Binh Ochoa M.D. on 09/07/2016 MR ABDOMEN MRCP IMPRESSION: 1. Markedly limited study due to motion artifact. 2. Cholelithiasis without evidence of cholecystitis. 3. No biliary ductal dilatation or definite choledocholithiasis. 4. No peripancreatic edema to suggest pancreatitis an MRI. No discrete pseudocyst identified. Dictated by: Bruce Valadez M.D. on 09/08/2016 at 17:47 US ABDOMEN IMPRESSION: 1. Cholelithiasis. 2. Mild gallbladder wall thickening. Acute cholecystitis cannot be excluded. 3. Echogenic liver. Finding typically represents fatty infiltration; however, finding is nonspecific and correlation with clinical and laboratory findings is recommended to exclude other etiologies including hepatic cirrhosis. 4. Slightly echogenic right kidney suspicious for developing medical renal disease. Please correlate with clinical and laboratory data. Dictated by: Swathi Jimenes MD, PhD on 08/29/2016 US ABDOMEN, LIMITED IMPRESSION: Cholelithiasis, without justin gallbladder wall thickening to suggest acute cholecystitis at this time. Dictated by: Binh Ochoa M.D. on 09/07/2016 X-RAY CHEST ONE VIEW, PORTABLE IMPRESSION: No acute disease is seen a semiupright portable chest. Tubes are considered appropriate radiographically. Dictated by: Hemant Gallegos M.D. on 08/23/2016 X-RAY CHEST ONE VIEW, PORTABLE IMPRESSION: Support lines as above. Otherwise, no acute pulmonary process. Dictated by: Shobha Vale M.D. on 08/24/2016 X-RAY CHEST ONE VIEW, PORTABLE IMPRESSION: No acute cardiopulmonary disease process. Dictated by: Swathi Jimenes MD, PhD on 08/25/2016 X-RAY CHEST ONE VIEW, PORTABLE IMPRESSION: 1. Left basilar atelectasis. Otherwise lungs are clear. 2. ET and enteric tubes. Dictated by: Jacob Mosqueda M.D. on 08/27/2016 at 9:53 X-RAY CHEST ONE VIEW, PORTABLE IMPRESSION: Stable left basilar atelectasis and support lines. Dictated by: Jacob Mosqueda M.D. on 08/28/2016 at 7:54 Date of Service: 09/15/16 1757 PROCEDURE: MRI STROKE PROTOCOL ([id number]) IMPRESSION: BRAIN MRI: Continued worsening of ischemic injury to the brain parenchyma, symmetric bilaterally, and best seen in the deep white matter of the lentiform nuclei, the wolfe radiata, and the centrum semiovale. No associated hemorrhage. BRAIN MR ANGIOGRAM: No acute disease to the intracranial arterial vasculature. NECK MR ANGIOGRAM: Normal cervical MR angiogram. The estimate of stenosis included in the report of the imaging study was calculated using the NASCET method Dictated by: Jack Padilla M.D. on 09/15/2016 at 21:36 Approved by: Jack Padilla M.D. on 09/15/2016 at 21:42 Additional Diagnostics AB DateTimeAnalyzed 10:20:00 -_ pH ____7.354 - 7.350 7.450 pCO2 ___31.5__ -mmHg 35.0 45.0 pO2 160 -mmHg 69.0 116 HCO3- ___17.1__ -mmol/L 22.0 26.0 FIO2 ___45.0__ -% PRVC 20 - PEEP ____8.0__ -cmH2O Assessment & Plan 41 year old male with known history of alcohol and drug use presented unresponsive after being found with vomit around him, sedated and intubated for acute hypoxemic respiratory failure secondary to aspiration for 5 days and extubated on hospital day 6 following successful spontaneous breathing trial. Patient developed acute anoxic brain injury secondary to hypoxia.Patient had large volume of vomit suctioned out in the ED. initial toxicology screen done only for salycilate, alcohol and acetaminophen which is unremarkable. Initial EEG showed evidence of slowing but no other abnormalities to suggest that the patient is having clinical seizures causing his symptoms. - Intubated on 08/23/16 , Extubated on 08/28/16. Repeat MRI of brain on 09/15/16 showing: "Continued worsening of ischemic injury to the brain parenchyma, symmetric bilaterally". Given no obvious source of infection and remote likelihood of vasculitis, per discussion with Dr. Jara a trial of steroid therapy (Prednisone 80mg daily x 3 days) given on 09/17/16 to see if we will achieve any significant improvement in neuro symptoms. No obvious improvement noted with 3 days of Prednisone treatment.Neuro reviewed this case with with [facility] neurology. Follow up with RADon CXr findings Acute anoxic Brain Injury, Acute dysphagia, poa, improving - patient is responding to voice and pain, able to say simple words - barium swallow showed silent aspiration to liquids, otherwise normal - family does not want PEG - Amantadine 200 bid, at goal, per neurology - c/w PT/OT - Had a meeting with SW and again to set expectaitons for discharge, I have explained ot her that his opporuntiy for medical car ein the clinic setting will be required for continued improvements bu is limited due to unavailability of insutrance. I ahve aske dher to line up help to do PT/OT exercises at home Hypokalemia acute -- 3.4 this am, treated with PO supplement. Diabetes Insipidus, poa, stable -10/16 Dr. Whatley is consulted again on the case due to hyponatremia, who has seen the patient this a.m. recommend stopping IV fluids, restarting DDVAP, we appreciate his time and recommendation. Acute Kidney Injury secondary to ATN present on admission. Resolved - requiring temporary dialysis - Unknown history of kidney injury. - Hemodialysis done daily starting 08/25/16 and then stopped. No longer on hemodialysis and catheter removed Questionable Acute Cholecystitis, based on HIDA scan and abdominal CT. - Resolved - Gen. surgery was consulted, Dr. Dash - MRCP was negative for Acute Pancreatitis and Chronic cholecystitis. - Resolved cholelithiasis w/o choledocholithiasis. - TPN stopped on 09/06/16 as this was thought to be worsening cholecystitis and pancreatitis. Fever, intermittently acute, resolved on 10/15 -source unclear, no obvious new source of infection -CXR 10/14 showed Left basilar opacity suspicious for pneumonia versus aspiration , however this has been present on the prior chest x-rays, does not appear to be a new finding. Blood CX NGTD -will have speech re-evaluate for aspiration: ST rec"continue modified diet with aspiration precautions" --10/13 resp panel is neg --follow up w RADS on CXR, he has no c/o cough/choking Acute Rhabdomyolysis, poa, resolved - resolved Acute stage II ulcers in the buttock areas, present on admission, stable - Continue with wound care and supportive care History of alcohol dependence, poa, stable - thiamin History of drug dependence, poa, stable - Known user of cocaine and ice - Per family, last known use is around 5 months ago. DVT prophylaxis- sequential compression device, heparin Disposition: Patient's has been setting up stuff ready at home for his discharge. I have discussed the fact that patient has exhibited several small improvements, would benefit from continued physical therapy and continued clinical follow-up. Explained to her that both hospital follow-up and clinical follow-up is important for patient's improvement, and that the patient may be limited due to lack of insurance and other resources in the community. I have urged her to line up support at home to watch and work with patient as most of what is being provided in the hospital is assisted care. GI Prophylaxis: Not indicated (Patient extubated) VTE Prophylaxis: Sub-Q Heparin (Unfractionated), SCDs VTE Mechanical Devices: Intermittant Pneumatic CD Resuscitation Status: CPR: Attempt Resuscitation ( is ADM) Time spent 45 min Minerva Wilson DO Oct 17, 2016 12:25
[2016-10-18] MEDS: Heparin 5,000 Unit/mL Inj SUBQ SCH ×3 (00:40→18:29)
[2016-10-18 00:46] VITALS: BP 114/74; PULSE 96; RESP 16; O2SAT 98
[2016-10-18 06:06] VITALS: PULSE 96
--- NOTE | 2016-10-18 07:36 | NUR ---
Care Pt continuing to take puree diet, fed by family, no s/s of aspiration. Patient alert most of evening hours, arousing at turns and care,talking at times. Able to move fingers BL and some toes on command. Gentle 2q turns and multiple change of linens due to incontinence and sweating. Oral care given by family, skin care by nursing staff and family, ROM by family.
[2016-10-18] MEDS: AMANTADINE 10 MG/ML PO SCH ×2 (09:03→21:15)
[2016-10-18] MEDS: Desmopressin 100 mCg/mL 5 mL Nasal Spray NASAL SCH ×2 (09:03→21:15)
[2016-10-18] MEDS: Nystatin 100,000 Unit/Gm 15 Gm Powder TOPICAL SCH ×2 (09:05→21:17)
[2016-10-18 10:00] VITALS: BP 122/86; PULSE 110; RESP 20; O2SAT 97
--- NOTE | 2016-10-18 11:10 | NUR ---
Tachy 140's at 1000ish monitoring manager called, HR up to 140's for less than 1 minute. in room, eating breakfast. Upon return assessment HR 100-110's Addendum: 10/18/16 at 1112 by VICK DUGGAN RN Dr Wilson notified in morning rounds at 1030
[2016-10-18 12:43] VITALS: PULSE 77
--- NOTE | 2016-10-18 17:34 | NUR ---
Social Work Note: Continued Discharge Planning Data& Assessment: CHARGE LPN met with pt and MD. MD explained that the hospital is mostly providing jail care for pt at this point in time vs. Medical care and that pt is medically stable for discharge. Pt confirmed understanding of this. Pt confirmed that she has obtained Waffle mattress, hospital bed and ann lift. Pt feels prepared to take pt home. Pt states that pt's uncle is coming from [place] on 10/26/2016 to decide if pt is to "continue treatment here or get treatment back in [place]." It was highlighted to pt that there is lack of follow up care due to lack of insurance. Pt confirmed understanding of this. Pt was interested in private pay ambulance quote, CHARGE LPN to obtain this information and provide it to pt . Pt denies any needs at this time. CHARGE LPN to continue to follow. Plan: Anticipated discharge home with family support and family caregiving. CHARGE LPN to follow up with pt regarding cost of BLS transportation. JEFF Swan
--- NOTE | 2016-10-18 17:49 | NUR ---
Nightmare/shower While MD assessing patient reported pt having nightmares for the past 3 nights, frightening him, waking him up. Pt taken over to [facility] in laura chair and had shower. assisted. Evangelina lift into chair. Pt reports feeling "clean". Addendum: 10/18/16 at 1918 by VICK DUGGAN RN ordered new rx for nightmare
[2016-10-18 18:30] VITALS: BP 129/90; PULSE 100; RESP 20; O2SAT 98
[2016-10-18 20:00] VITALS: BP 125/65; PULSE 102; RESP 17; O2SAT 98
--- NOTE | 2016-10-18 20:11 | PCM.PNMED ---
Subjective Date of Service Oct 18, 2016 Subjective Patient examined in the presence of , and a Maltese online drum saw operator. was asking about patient's heart rate, explained to her that he could be dehydrated, patient was maintaining low 100s heart rate in the exception of a 1 time brief 140. was asking me what an echo that was done recently, however no such test was followed in the system. Patient's indicates that the patient's sacral ulcer has completely healed up. Patient is asking to go home Exam Vital Signs Vital Sign - Last Date Time Temp Pulse Resp B/P Pulse Ox O2 Delivery O2 Flow Rate FiO2 10/18/16 06:06 96 10/18/16 00:46 35.8 16 114/74 98 Room Air Intake and Output 10/17/16 10/17/16 10/18/16 Cumulative From/Thru 15:00 23:00 07:00 08/23/16 05:20 - 10/17/16 17:42 Intake Total 200 ml 300 ml 232061 ml Output Total 987301 ml Balance 200 ml 300 ml 62424 ml Intake Oral 200 ml 300 ml 6237 ml IV Total 78424 ml Tube Feeding 14383 ml TPN/PPN 1526 ml Tube Irrigant 32710 ml Output Urine Total 510756 ml Stool Total 27095 ml Gastric Drainage Total 1070 ml Ultrafiltrate 4700 ml Other 330 ml # Voids 2 81 # Bowel Movements 2 44 Exam General: Siting up in bed, NAD, interactive yelling at times HEENT: EOM intact Neuro: following commands, verbally communicative, was able to stick his tongue lift the tongue up Heart: RRR, no s3/s4 Lungs: CTA, no crackles anteriorly Ext no edema MSK, was moving hands slightly to implementation analyst my hand, no movement in feet Psych: Appears to be in somewhat concerned/depressed mood IVs and Medications Medications Reviewed: Medications were reviewed in detail Lab and Diagnostics Result Diagram: 10/17/1662810/17/16628 Microbiology Blood cultures pending MRSA swab pending X-Rays, CTs and MRIs CT BRAIN WITHOUT CONTRAST IMPRESSION: No acute disease. Dictated by: Hemant Gallegos M.D. on 08/23/2016 CT BRAIN WITHOUT CONTRAST IMPRESSION: 1. Diffuse bilateral hypodensity of the globus pallidus. This is a new finding when compared with the study dated 08/23/16. Differential considerations include anoxic injury, carbon monoxide neurotoxicity, excessive alcohol ingestion, and methanol or ethylene glycol ingestion. Dictated by: Dinora Kang M.D. 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 Dictated by: Jacob Mosqueda M.D. on 08/28/2016 MRI STROKE PROTOCOL IMPRESSION: BRAIN MRI: Continued worsening of ischemic injury to the brain parenchyma, symmetric bilaterally, and best seen in the deep white matter of the lentiform nuclei, the wolfe radiata, and the centrum semiovale. No associated hemorrhage. BRAIN MR ANGIOGRAM: No acute disease to the intracranial arterial vasculature. NECK MR ANGIOGRAM: Normal cervical MR angiogram. The estimate of stenosis included in the report of the imaging study was calculated using the NASCET method Dictated by: Jack Padilla M.D. on 09/15/2016 CT CHEST WITHOUT CONTRAST IMPRESSION: Small basal left pleural effusion is unchanged, with associated left lower lobe compressive atelectasis. Superimposed pneumonia therefore cannot be excluded. Dictated by: Binh Ochoa M.D. on 09/07/2016 at 13:47 US RENAL SONOGRAM IMPRESSION: No hydronephrosis. Right renal cyst. Dictated by: Shobha Vale M.D. on 08/24/2016 US ABDOMEN, LIMITED IMPRESSION: Cholelithiasis, without justin gallbladder wall thickening to suggest acute cholecystitis at this time. Dictated by: Binh Ochoa M.D. on 09/07/2016 MR ABDOMEN MRCP IMPRESSION: 1. Markedly limited study due to motion artifact. 2. Cholelithiasis without evidence of cholecystitis. 3. No biliary ductal dilatation or definite choledocholithiasis. 4. No peripancreatic edema to suggest pancreatitis an MRI. No discrete pseudocyst identified. Dictated by: Bruce Valadez M.D. on 09/08/2016 at 17:47 US ABDOMEN IMPRESSION: 1. Cholelithiasis. 2. Mild gallbladder wall thickening. Acute cholecystitis cannot be excluded. 3. Echogenic liver. Finding typically represents fatty infiltration; however, finding is nonspecific and correlation with clinical and laboratory findings is recommended to exclude other etiologies including hepatic cirrhosis. 4. Slightly echogenic right kidney suspicious for developing medical renal disease. Please correlate with clinical and laboratory data. Dictated by: Swathi Jimenes MD, PhD on 08/29/2016 US ABDOMEN, LIMITED IMPRESSION: Cholelithiasis, without justin gallbladder wall thickening to suggest acute cholecystitis at this time. Dictated by: Binh Ochoa M.D. on 09/07/2016 X-RAY CHEST ONE VIEW, PORTABLE IMPRESSION: No acute disease is seen a semiupright portable chest. Tubes are considered appropriate radiographically. Dictated by: Hemant Gallegos M.D. on 08/23/2016 X-RAY CHEST ONE VIEW, PORTABLE IMPRESSION: Support lines as above. Otherwise, no acute pulmonary process. Dictated by: Shobha Vale M.D. on 08/24/2016 X-RAY CHEST ONE VIEW, PORTABLE IMPRESSION: No acute cardiopulmonary disease process. Dictated by: Swathi Jimenes MD, PhD on 08/25/2016 X-RAY CHEST ONE VIEW, PORTABLE IMPRESSION: 1. Left basilar atelectasis. Otherwise lungs are clear. 2. ET and enteric tubes. Dictated by: Jacob Mosqueda M.D. on 08/27/2016 at 9:53 X-RAY CHEST ONE VIEW, PORTABLE IMPRESSION: Stable left basilar atelectasis and support lines. Dictated by: Jacob Mosqueda M.D. on 08/28/2016 at 7:54 Date of Service: 09/15/16 1757 PROCEDURE: MRI STROKE PROTOCOL ([id number]) IMPRESSION: BRAIN MRI: Continued worsening of ischemic injury to the brain parenchyma, symmetric bilaterally, and best seen in the deep white matter of the lentiform nuclei, the wolfe radiata, and the centrum semiovale. No associated hemorrhage. BRAIN MR ANGIOGRAM: No acute disease to the intracranial arterial vasculature. NECK MR ANGIOGRAM: Normal cervical MR angiogram. The estimate of stenosis included in the report of the imaging study was calculated using the NASCET method Dictated by: Jack Padilla M.D. on 09/15/2016 at 21:36 Approved by: Jack Padilla M.D. on 09/15/2016 at 21:42 Additional Diagnostics ABG DateTimeAnalyzed 10:20:00 -_ pH ____7.354 - 7.350 7.450 pCO2 ___31.5__ -mmHg 35.0 45.0 pO2 160 -mmHg 69.0 116 HCO3- ___17.1__ -mmol/L 22.0 26.0 FIO2 ___45.0__ -% PRVC 20 - PEEP ____8.0__ -cmH2O Assessment & Plan 41 year old male with known history of alcohol and drug use presented unresponsive after being found with vomit around him, sedated and intubated for acute hypoxemic respiratory failure secondary to aspiration for 5 days and extubated on hospital day 6 following successful spontaneous breathing trial. Patient developed acute anoxic brain injury secondary to hypoxia.Patient had large volume of vomit suctioned out in the ED. initial toxicology screen done only for salycilate, alcohol and acetaminophen which is unremarkable. Initial EEG showed evidence of slowing but no other abnormalities to suggest that the patient is having clinical seizures causing his symptoms. - Intubated on 08/23/16 , Extubated on 08/28/16. Repeat MRI of brain on 09/15/16 showing: "Continued worsening of ischemic injury to the brain parenchyma, symmetric bilaterally". Given no obvious source of infection and remote likelihood of vasculitis, per discussion with Dr. Jara a trial of steroid therapy (Prednisone 80mg daily x 3 days) given on 09/17/16 to see if we will achieve any significant improvement in neuro symptoms. No obvious improvement noted with 3 days of Prednisone treatment.Neuro reviewed this case with with [facility] neurology. Tachycardia, acute -- I ordered an EKG -- Encourage hydration, Dr. Whatley instructed as not to give her IV fluids to patient. Will discuss with him in the a.m. -- Telemonitoring does not have any rhythm changes Anxiety, acute -- Ordered BuSpar 7.5 mg twice a day by mouth Acute anoxic Brain Injury, Acute dysphagia, poa, improving - patient is responding to voice and pain, able to say simple words - barium swallow showed silent aspiration to liquids, otherwise normal - family does not want PEG - Amantadine 200 bid, at goal, per neurology - c/w PT/OT - Had a meeting with SW and again to set expectations for discharge, I have explained ot her that his opporuntiy for medical car ein the clinic setting will be required for continued improvements bu is limited due to unavailability of insutrance. I ahve aske dher to line up help to do PT/OT exercises at home Hypokalemia acute -- 3.4 this am, treated with PO supplement. -- We will recheck periodically CXR Findings of suspicion for PNA as reported on 10/15 --Appears to be pneumonia like findings and his chest x-ray per long time now -- Patient denies coughing choking, shortness of breath. Does not appear to be having a pneumonia clinically. Called and spoke with the radiologist radiology transcriptionist Dr. Ochoa who feels this could be atelectasis Diabetes Insipidus, poa, stable -10/16 Dr. Whatley is consulted again on the case due to hyponatremia, who has seen the patient this a.m. recommend stopping IV fluids, restarting DDVAP, we appreciate his time and recommendation. Acute Kidney Injury secondary to ATN present on admission. Resolved - requiring temporary dialysis - Unknown history of kidney injury. - Hemodialysis done daily starting 08/25/16 and then stopped. No longer on hemodialysis and catheter removed Questionable Acute Cholecystitis, based on HIDA scan and abdominal CT. - Resolved - Gen. surgery was consulted, Dr. Dash - MRCP was negative for Acute Pancreatitis and Chronic cholecystitis. - Resolved cholelithiasis w/o choledocholithiasis. - TPN stopped on 09/06/16 as this was thought to be worsening cholecystitis and pancreatitis. Fever, intermittently acute, resolved on 10/15 -source unclear, no obvious new source of infection -CXR 10/14 showed Left basilar opacity suspicious for pneumonia versus aspiration , however this has been present on the prior chest x-rays, does not appear to be a new finding. Blood CX NGTD -will have speech re-evaluate for aspiration: ST rec"continue modified diet with aspiration precautions" --10/13 resp panel is neg --follow up w RADS on CXR, he has no c/o cough/choking Acute Rhabdomyolysis, poa, resolved - resolved Acute stage II ulcers in the buttock areas, present on admission, stable - Continue with wound care and supportive care History of alcohol dependence, poa, stable - thiamin History of drug dependence, poa, stable - Known user of cocaine and ice - Per family, last known use is around 5 months ago. DVT prophylaxis- sequential compression device, heparin Disposition: Patient's has been setting up stuff ready at home for his discharge. I have discussed the fact that patient has exhibited several small improvements, would benefit from continued physical therapy and continued clinical follow-up. Explained to her that both hospital follow-up and clinical follow-up is important for patient's improvement, and that the patient may be limited due to lack of insurance and other resources in the community. I have urged her to line up support at home to watch and work with patient as most of what is being provided in the hospital is nursing home care. GI Prophylaxis: Not indicated (Patient extubated) VTE Prophylaxis: Sub-Q Heparin (Unfractionated), SCDs VTE Mechanical Devices: Intermittant Pneumatic CD Resuscitation Status: CPR: Attempt Resuscitation ( is ADM) Time spent 30 min Minerva Wilson DO Oct 18, 2016 07:16
[2016-10-18] MEDS: BusPIRone 15 mg Dividose Tablet PO SCH (21:17)
[2016-10-19] VITALS (8 sets, daily range): BP systolic 119–127; BP diastolic 80–86; PULSE 82–104; RESP 16–18; O2SAT 97–100
[2016-10-19] MEDS: Heparin 5,000 Unit/mL Inj SUBQ SCH ×3 (00:25→18:11)
--- NOTE | 2016-10-19 06:34 | NUR ---
Shift Note Pt. alert and able to voice some needs, family at bedside assisting with care, continues on q2 turn and frequent brief changed d/t incontinent of b/b, no s/s of acute distress throughout the shift, will continue to monitor.
[2016-10-19] MEDS: AMANTADINE 10 MG/ML PO SCH ×2 (09:21→20:51)
[2016-10-19] MEDS: Desmopressin 100 mCg/mL 5 mL Nasal Spray NASAL SCH ×2 (09:22→20:52)
[2016-10-19] MEDS: Nystatin 100,000 Unit/Gm 15 Gm Powder TOPICAL SCH ×2 (09:24→20:51)
[2016-10-19] MEDS: BusPIRone 15 mg Dividose Tablet PO SCH ×2 (09:24→20:51)
--- NOTE | 2016-10-19 11:32 | NUR ---
LAW ENFORCEMENT OFFICER FOLLOWING PT. FOR ONGOING DYSPHAGIA INTERVENTION. ATTEMPTED TO SEE PT. THIS AM AT BEDSIDE. HOWEVER, PT. SLEEPING AND NOT WANTING TO AROUSE FOR THERAPY. AT BEDSIDE, REPORTED PT. WITH GOOD APPETITE, EATING 100% OF MEAL TRAYS (PUREE/NECTAR). ALSO REPORTED PT. WITH IMPROVED COMMUNICATION; ANSWERING QUESTIONS, ASKING QUESTIONS AND PARTICIPATING IN A CONVERSATION WITH PHRASE RESPONSES. NOTED THAT PT MAY BE DISCHARGED ON SATURDAY 10/21. LAW ENFORCEMENT OFFICER TO FOLLOW.
--- NOTE | 2016-10-19 15:30 | NUR ---
Shift Note: Santiago is alert and communicating his needs today to Stella and staff. Slight mvmt of R leg seen by this RN otherwise remains flaccid/total care. Feels the urge to urinate/defecate - encouraged use of the bedpan. Eating 100% of meals and tolerated his diet and liquids well. Teaching of cares continues with Stella, she is eager to help him and learn. Patient to d/c this week, possibly Thursday.
--- NOTE | 2016-10-19 20:04 | PCM.PNMED ---
Subjective Date of Service Oct 19, 2016 Subjective Patient seen and examined. He was having some family time to visitors and children. states that he was talking a lot with them. He is appropriately interactive in the room, there appears to be getting tired and yawning at times. I have asked him if he had more nightmares and anxiety he denied. This interview was done with the help of [employer]. He has no other concerns Exam Vital Signs Vital Sign - Last Date Time Temp Pulse Resp B/P Pulse Ox O2 Delivery O2 Flow Rate FiO2 10/19/16 12:06 89 10/19/16 08:15 36.8 18 124/84 98 Room Air Intake and Output 10/18/16 10/18/16 10/19/16 Cumulative From/Thru 15:00 23:00 07:00 08/23/16 05:20 - 10/19/16 05:08 Intake Total 900 ml 240 ml 315619 ml Output Total 727256 ml Balance 900 ml 240 ml 36518 ml Intake Oral 900 ml 240 ml 7377 ml IV Total 42997 ml Tube Feeding 85845 ml TPN/PPN 1526 ml Tube Irrigant 57905 ml Output Urine Total 979930 ml Stool Total 23009 ml Gastric Drainage Total 1070 ml Ultrafiltrate 4700 ml Other 330 ml # Voids 5 2 88 # Bowel Movements 3 1 48 Exam Gen.: No acute distress alert and oriented, appears to be speaking with Spanish and Samoan HEENT: Normocephalic, atraumatic extraocular moments are intact Heart: Regular rate and rhythm no S3-S4 murmurs Lungs are clear to auscultation anteriorly Abdomen: Flat soft nontender Extremities: No edema, he is able to move his fingers and squeeze my hand slightly, able t wiggle toes on the right foot Neurological: Alert and oriented conversing, verbally responsive, no patellar reflexes were present, symmetric Achilles reflexes Skin: Warm and dry IVs and Medications IV Fluids None Medications Reviewed: Medications were reviewed in detail Lab and Diagnostics Result Diagram: 10/17/1662810/17/16628 Microbiology Blood cultures pending MRSA swab pending X-Rays, CTs and MRIs CT BRAIN WITHOUT CONTRAST IMPRESSION: No acute disease. Dictated by: Hemant Gallegos M.D. on 08/23/2016 CT BRAIN WITHOUT CONTRAST IMPRESSION: 1. Diffuse bilateral hypodensity of the globus pallidus. This is a new finding when compared with the study dated 08/23/16. Differential considerations include anoxic injury, carbon monoxide neurotoxicity, excessive alcohol ingestion, and methanol or ethylene glycol ingestion. Dictated by: Dinora Kang M.D. 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 Dictated by: Jacob Mosqueda M.D. on 08/28/2016 MRI STROKE PROTOCOL IMPRESSION: BRAIN MRI: Continued worsening of ischemic injury to the brain parenchyma, symmetric bilaterally, and best seen in the deep white matter of the lentiform nuclei, the wolfe radiata, and the centrum semiovale. No associated hemorrhage. BRAIN MR ANGIOGRAM: No acute disease to the intracranial arterial vasculature. NECK MR ANGIOGRAM: Normal cervical MR angiogram. The estimate of stenosis included in the report of the imaging study was calculated using the NASCET method Dictated by: Jack Padilla M.D. on 09/15/2016 CT CHEST WITHOUT CONTRAST IMPRESSION: Small basal left pleural effusion is unchanged, with associated left lower lobe compressive atelectasis. Superimposed pneumonia therefore cannot be excluded. Dictated by: Binh Ochoa M.D. on 09/07/2016 at 13:47 US RENAL SONOGRAM IMPRESSION: No hydronephrosis. Right renal cyst. Dictated by: Shobha Vale M.D. on 08/24/2016 US ABDOMEN, LIMITED IMPRESSION: Cholelithiasis, without justin gallbladder wall thickening to suggest acute cholecystitis at this time. Dictated by: Binh Ochoa M.D. on 09/07/2016 MR ABDOMEN MRCP IMPRESSION: 1. Markedly limited study due to motion artifact. 2. Cholelithiasis without evidence of cholecystitis. 3. No biliary ductal dilatation or definite choledocholithiasis. 4. No peripancreatic edema to suggest pancreatitis an MRI. No discrete pseudocyst identified. Dictated by: Bruce Valadez M.D. on 09/08/2016 at 17:47 US ABDOMEN IMPRESSION: 1. Cholelithiasis. 2. Mild gallbladder wall thickening. Acute cholecystitis cannot be excluded. 3. Echogenic liver. Finding typically represents fatty infiltration; however, finding is nonspecific and correlation with clinical and laboratory findings is recommended to exclude other etiologies including hepatic cirrhosis. 4. Slightly echogenic right kidney suspicious for developing medical renal disease. Please correlate with clinical and laboratory data. Dictated by: Swathi Jimenes MD, PhD on 08/29/2016 US ABDOMEN, LIMITED IMPRESSION: Cholelithiasis, without justin gallbladder wall thickening to suggest acute cholecystitis at this time. Dictated by: Binh Ochoa M.D. on 09/07/2016 X-RAY CHEST ONE VIEW, PORTABLE IMPRESSION: No acute disease is seen a semiupright portable chest. Tubes are considered appropriate radiographically. Dictated by: Hemant Gallegos M.D. on 08/23/2016 X-RAY CHEST ONE VIEW, PORTABLE IMPRESSION: Support lines as above. Otherwise, no acute pulmonary process. Dictated by: Shobha Vale M.D. on 08/24/2016 X-RAY CHEST ONE VIEW, PORTABLE IMPRESSION: No acute cardiopulmonary disease process. Dictated by: Swathi Jimenes MD, PhD on 08/25/2016 X-RAY CHEST ONE VIEW, PORTABLE IMPRESSION: 1. Left basilar atelectasis. Otherwise lungs are clear. 2. ET and enteric tubes. Dictated by: Jacob Mosqueda M.D. on 08/27/2016 at 9:53 X-RAY CHEST ONE VIEW, PORTABLE IMPRESSION: Stable left basilar atelectasis and support lines. Dictated by: Jacob Mosqueda M.D. on 08/28/2016 at 7:54 Date of Service: 09/15/16 1757 PROCEDURE: MRI STROKE PROTOCOL ([id number]) IMPRESSION: BRAIN MRI: Continued worsening of ischemic injury to the brain parenchyma, symmetric bilaterally, and best seen in the deep white matter of the lentiform nuclei, the wolfe radiata, and the centrum semiovale. No associated hemorrhage. BRAIN MR ANGIOGRAM: No acute disease to the intracranial arterial vasculature. NECK MR ANGIOGRAM: Normal cervical MR angiogram. The estimate of stenosis included in the report of the imaging study was calculated using the NASCET method Dictated by: Jack Padilla M.D. on 09/15/2016 at 21:36 Approved by: Jack Padilla M.D. on 09/15/2016 at 21:42 Additional Diagnostics [facility] DateTimeAnalyzed 10:20:00 -_ pH ____7.354 - 7.350 7.450 pCO2 ___31.5__ -mmHg 35.0 45.0 pO2 160 -mmHg 69.0 116 HCO3- ___17.1__ -mmol/L 22.0 26.0 FIO2 ___45.0__ -% PRVC 20 - PEEP ____8.0__ -cmH2O Assessment & Plan 41 year old male with known history of alcohol and drug use presented unresponsive after being found with vomit around him, sedated and intubated for acute hypoxemic respiratory failure secondary to aspiration for 5 days and extubated on hospital day 6 following successful spontaneous breathing trial. Patient developed acute anoxic brain injury secondary to hypoxia.Patient had large volume of vomit suctioned out in the ED. initial toxicology screen done only for salycilate, alcohol and acetaminophen which is unremarkable. Initial EEG showed evidence of slowing but no other abnormalities to suggest that the patient is having clinical seizures causing his symptoms. - Intubated on 08/23/16 , Extubated on 08/28/16. Repeat MRI of brain on 09/15/16 showing: "Continued worsening of ischemic injury to the brain parenchyma, symmetric bilaterally". Given no obvious source of infection and remote likelihood of vasculitis, per discussion with Dr. Jara a trial of steroid therapy (Prednisone 80mg daily x 3 days) given on 09/17/16 to see if we will achieve any significant improvement in neuro symptoms. No obvious improvement noted with 3 days of Prednisone treatment.Neuro reviewed this case with with [facility] neurology. Acute anoxic Brain Injury, Acute dysphagia, poa, improving - patient is responding to voice and pain, able to say simple words - barium swallow showed silent aspiration to liquids, otherwise normal - family does not want PEG - Amantadine 200 bid, at goal, per neurology - c/w PT/OT - Had a meeting with SW and again to set expectations for discharge, I have explained ot her that his opporuntiy for medical car ein the clinic setting will be required for continued improvements bu is limited due to unavailability of insutrance. I ahve aske dher to line up help to do PT/OT exercises at home Hypokalemia acute -- 3.4 this am, treated with PO supplement. -- We will recheck labs BMP on 10/20 CXR Findings of suspicion for PNA as reported on 10/15 --Appears to be pneumonia like findings and his chest x-ray per long time now -- Patient denies coughing choking, shortness of breath. Does not appear to be having a pneumonia clinically. Called and spoke with the radiologist reimbursement consultant Dr. Ochoa who feels this could be atelectasis Diabetes Insipidus, poa, stable -10/16 Dr. Whatley is consulted again on the case due to hyponatremia, who has seen the patient this a.m. recommend stopping IV fluids, restarting DDVAP, we appreciate his time and recommendation. Acute Kidney Injury secondary to ATN present on admission. Resolved - requiring temporary dialysis - Unknown history of kidney injury. - Hemodialysis done daily starting 08/25/16 and then stopped. No longer on hemodialysis and catheter removed Questionable Acute Cholecystitis, based on HIDA scan and abdominal CT. Resolved - Gen. surgery was consulted, Dr. Dash - MRCP was negative for Acute Pancreatitis and Chronic cholecystitis. - Resolved cholelithiasis w/o choledocholithiasis. - TPN stopped on 09/06/16 as this was thought to be worsening cholecystitis and pancreatitis. Fever, intermittently acute, resolved on 10/15 -source unclear, no obvious new source of infection -CXR 10/14 showed Left basilar opacity suspicious for pneumonia versus aspiration , however this has been present on the prior chest x-rays, does not appear to be a new finding. Blood CX NGTD -will have speech re-evaluate for aspiration: ST rec"continue modified diet with aspiration precautions" -10/13 resp panel is neg --followed up w [facility]ADS on CXR, he has no c/o cough/choking: They stated that in the absence of clinical symptoms, these recent changes may just be due to atelectasis Acute Rhabdomyolysis, poa, resolved - resolved Tachycardia, resolved 10/19 -- I ordered an EKG 10/18, reviewed. No acute changes were seen, no ST elevation more than 1 leads -- Encourage hydration, Dr. Whatley instructed as not to give her IV fluids to patient. Nursing communication order was put in (patient at least 2 L of fluids from all sources. -- Telemonitoring does not have any overnight rhythm changes, discontinue telemetry Anxiety, resolved 10/19 -- Ordered BuSpar 7.5 mg twice a day by mouth 10/18 -- Plan to increase dose to 50 mg twice a day in a week Acute stage II ulcers in the buttock areas, present on admission, stable - Continue with wound care and supportive care History of alcohol dependence, poa, stable - thiamin History of drug dependence, poa, stable - Known user of cocaine and ice - Per family, last known use is around 5 months ago. DVT prophylaxis- sequential compression device, heparin Disposition: Patient's has been setting up stuff ready at home for his discharge. I have discussed the fact that patient has exhibited several small improvements, would benefit from continued physical therapy and continued clinical follow-up. Explained to her that both hospital follow-up and clinical follow-up is important for patient's improvement, and that the patient may be limited due to lack of insurance and other resources in the community. I have urged her to line up support at home to watch and work with patient as most of what is being provided in the hospital is prison care. GI Prophylaxis: Not indicated (Patient extubated) VTE Prophylaxis: Sub-Q Heparin (Unfractionated), SCDs VTE Mechanical Devices: Intermittant Pneumatic CD Resuscitation Status: CPR: Attempt Resuscitation ( is ADM) Time spent 25 min Minerva Wilson DO Oct 19, 2016 17:41
--- NOTE | 2016-10-19 21:00 | NUR ---
Telemetry d/c'd Orders entered to d/c telemetry
--- NOTE | 2016-10-19 22:05 | NUR ---
U/A Patient c/o burning pain during urination text obtained order clean catch u/A
[2016-10-20] MEDS: Heparin 5,000 Unit/mL Inj SUBQ SCH ×3 (01:07→17:09)
[2016-10-20 05:57] VITALS: BP 120/77; PULSE 88; RESP 18; O2SAT 98
[2016-10-20 06:46] LABS: Mean Corpuscular Hemoglobin 29.2 pg (27.0-35.0); Mean Corpuscular Volume 90.6 fL (81-100)
[2016-10-20 07:20] VITALS: BP 118/80; PULSE 99; RESP 18; O2SAT 96
[2016-10-20] MEDS: BusPIRone 15 mg Dividose Tablet PO SCH ×2 (09:04→21:27)
[2016-10-20] MEDS: Desmopressin 100 mCg/mL 5 mL Nasal Spray NASAL SCH ×2 (09:04→21:27)
[2016-10-20] MEDS: Nystatin 100,000 Unit/Gm 15 Gm Powder TOPICAL SCH ×2 (09:04→21:27)
[2016-10-20] MEDS: AMANTADINE 10 MG/ML PO SCH ×2 (09:05→21:27)
--- NOTE | 2016-10-20 09:38 | NUR ---
UA/pain Pt notified of need to void, attempted urinal placement, had already urinated. Pt still c/o burning with urination. Pt c/o low back pain with repositioning in bed. Once in the new position, no complaints.
--- NOTE | 2016-10-20 10:20 | NUR ---
Social Work Note:Continued Discharge Planning Data& Assessment: MANAGER GAMING called [facility] for a quote and it would be over $550. Call was made to [facility], cost would be over $900. Call was made to [facility] who would be able to transport pt via stretcher without a medical chemist, cost would only be $50 and $6 for every mile. MANAGER GAMING confirmed address with pt as [address] [facility], which is only 2.5 miles from the hospital. Cost for [facility] would only be $68. RN confirmed that pt would be able to safely transport home this way and does not require a medical chemist. Pt is happy with the [facility] transportation option, but would like to talk with her sister in law first. Pt has obtained all DME, supplies and dietary recommendations. Pt and pt are ready to discharge home. MANAGER GAMING to follow up with pt about chosen transportation method. MANAGER GAMING to continue to follow. Plan: Per MD pt is getting closer to being medically ready to discharge in the next 1-2 days. MANAGER GAMING to follow up with pt about chosen transportation method. JEFF Swan
--- NOTE | 2016-10-20 12:44 | NUR ---
UA Able to collect UA in clean urinal.
[2016-10-20 13:43] LABS: APPEARANCE,URINE HAZY (CLEAR,HAZY); COLOR,URINE STRAW (YELLOW)
[2016-10-20 13:44] LABS: OCCULT BLOOD,URINE NEGATIVE (NEGATIVE); PH,URINE 7.5 (5.0-8.0); UROBILINOGEN,URINE NORMAL (NORMAL)
--- NOTE | 2016-10-20 17:56 | NUR ---
Pain/BM Pt c/o pain in low back with turning and sitting up. This afternoon c/o neck pain when positioned on side. Trial of tylenol prn to be given prior to exercising the patient. Given before dinner. Pt has had 3 small soft brown stool. Addendum: 10/20/16 at 1802 by VICK DUGGAN RN /pt reports that tylenol helpful with pain control. states that patients neck seemed relaxed during meal, no pain.
--- NOTE | 2016-10-20 18:00 | PCM.PNMED ---
Subjective Date of Service Oct 20, 2016 Subjective Patient is seen and examined with the help of [place] online china painter. Patient is about same as what he was yesterday, I have told him he may be going home tomorrow. He appears to be happy with it. He is having pain whenever the nursing is moving him are sometimes in the works with him for physical therapy. He denies having any more nightmares. No other concerns Exam Vital Signs Vital Sign - Last Date Time Temp Pulse Resp B/P Pulse Ox O2 Delivery O2 Flow Rate FiO2 10/20/16 15:58 Supplement Oxygen 10/20/16 07:20 36.9 99 18 118/80 96 Intake and Output 10/19/16 10/19/16 10/20/16 Cumulative From/Thru 15:00 23:00 07:00 08/23/16 05:20 - 10/20/16 06:12 Intake Total 400 ml 1000 ml 700 ml 908073 ml Output Total 350 ml 664245 ml Balance 400 ml 1000 ml 350 ml 69509 ml Intake Oral 1000 ml 700 ml 9077 ml IV Total 400 ml 17932 ml Tube Feeding 69882 ml TPN/PPN 1526 ml Tube Irrigant 28939 ml Output Urine Total 350 ml 684302 ml Stool Total 07742 ml Gastric Drainage Total 1070 ml Ultrafiltrate 4700 ml Other 330 ml # Voids 1 2 4 95 # Bowel Movements 1 49 Exam Gen.: No acute distress, yawning occasionally HEENT: Normocephalic, atraumatic, extraocular movements are intact, PERRLA Heart: Regular rate and rhythm no S3-S4 murmurs Lungs are clear to auscultation bilaterally no crackles or wheezes Abdomen flat, soft, nontender 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 He is able to wiggle toes in the left lower extremity, but not the right. Neurological: As unable to test his shoulder strength due to his positioning, otherwise CN II to 12 are grossly normal. Symmetric reflexes in the Achilles, no upgoing Babinski's, no response to patellar reflexes, responsive to pain, endorses no altered sensation Psychiatric: Appears calm, affect is neutral, appropriately interactive IVs and Medications Medications Reviewed: Medications were reviewed in detail Lab and Diagnostics Result Diagram: 10/20/1661910/20/16619 Microbiology Blood cultures pending MRSA swab pending X-Rays, CTs and MRIs CT BRAIN WITHOUT CONTRAST IMPRESSION: No acute disease. Dictated by: Hemant Gallegos M.D. on 08/23/2016 CT BRAIN WITHOUT CONTRAST IMPRESSION: 1. Diffuse bilateral hypodensity of the globus pallidus. This is a new finding when compared with the study dated 08/23/16. Differential considerations include anoxic injury, carbon monoxide neurotoxicity, excessive alcohol ingestion, and methanol or ethylene glycol ingestion. Dictated by: Dinora Kang M.D. 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 Dictated by: Jacob Mosqueda M.D. on 08/28/2016 MRI STROKE PROTOCOL IMPRESSION: BRAIN MRI: Continued worsening of ischemic injury to the brain parenchyma, symmetric bilaterally, and best seen in the deep white matter of the lentiform nuclei, the wolfe radiata, and the centrum semiovale. No associated hemorrhage. BRAIN MR ANGIOGRAM: No acute disease to the intracranial arterial vasculature. NECK MR ANGIOGRAM: Normal cervical MR angiogram. The estimate of stenosis included in the report of the imaging study was calculated using the NASCET method Dictated by: Jack Padilla M.D. on 09/15/2016 CT CHEST WITHOUT CONTRAST IMPRESSION: Small basal left pleural effusion is unchanged, with associated left lower lobe compressive atelectasis. Superimposed pneumonia therefore cannot be excluded. Dictated by: Binh Ochoa M.D. on 09/07/2016 at 13:47 US RENAL SONOGRAM IMPRESSION: No hydronephrosis. Right renal cyst. Dictated by: Shobha Vale M.D. on 08/24/2016 US ABDOMEN, LIMITED IMPRESSION: Cholelithiasis, without justin gallbladder wall thickening to suggest acute cholecystitis at this time. Dictated by: Binh Ochoa M.D. on 09/07/2016 MR ABDOMEN MRCP IMPRESSION: 1. Markedly limited study due to motion artifact. 2. Cholelithiasis without evidence of cholecystitis. 3. No biliary ductal dilatation or definite choledocholithiasis. 4. No peripancreatic edema to suggest pancreatitis an MRI. No discrete pseudocyst identified. Dictated by: Bruce Valadez M.D. on 09/08/2016 at 17:47 US ABDOMEN IMPRESSION: 1. Cholelithiasis. 2. Mild gallbladder wall thickening. Acute cholecystitis cannot be excluded. 3. Echogenic liver. Finding typically represents fatty infiltration; however, finding is nonspecific and correlation with clinical and laboratory findings is recommended to exclude other etiologies including hepatic cirrhosis. 4. Slightly echogenic right kidney suspicious for developing medical renal disease. Please correlate with clinical and laboratory data. Dictated by: Swathi Jimenes MD, PhD on 08/29/2016 US ABDOMEN, LIMITED IMPRESSION: Cholelithiasis, without justin gallbladder wall thickening to suggest acute cholecystitis at this time. Dictated by: Binh Ochoa M.D. on 09/07/2016 X-RAY CHEST ONE VIEW, PORTABLE IMPRESSION: No acute disease is seen a semiupright portable chest. Tubes are considered appropriate radiographically. Dictated by: Hemant Gallegos M.D. on 08/23/2016 X-RAY CHEST ONE VIEW, PORTABLE IMPRESSION: Support lines as above. Otherwise, no acute pulmonary process. Dictated by: Shobha Vale M.D. on 08/24/2016 X-RAY CHEST ONE VIEW, PORTABLE IMPRESSION: No acute cardiopulmonary disease process. Dictated by: Swathi Jimenes MD, PhD on 08/25/2016 X-RAY CHEST ONE VIEW, PORTABLE IMPRESSION: 1. Left basilar atelectasis. Otherwise lungs are clear. 2. ET and enteric tubes. Dictated by: Jacob Mosqueda M.D. on 08/27/2016 at 9:53 X-RAY CHEST ONE VIEW, PORTABLE IMPRESSION: Stable left basilar atelectasis and support lines. Dictated by: Jacob Mosqueda M.D. on 08/28/2016 at 7:54 Date of Service: 09/15/16 1757 PROCEDURE: MRI STROKE PROTOCOL ([id number]) IMPRESSION: BRAIN MRI: Continued worsening of ischemic injury to the brain parenchyma, symmetric bilaterally, and best seen in the deep white matter of the lentiform nuclei, the wolfe radiata, and the centrum semiovale. No associated hemorrhage. BRAIN MR ANGIOGRAM: No acute disease to the intracranial arterial vasculature. NECK MR ANGIOGRAM: Normal cervical MR angiogram. The estimate of stenosis included in the report of the imaging study was calculated using the NASCET method Dictated by: Jack Padilla M.D. on 09/15/2016 at 21:36 Approved by: Jack Padilla M.D. on 09/15/2016 at 21:42 Additional Diagnostics ABG DateTimeAnalyzed 10:20:00 -_ pH ____7.354 - 7.350 7.450 pCO2 ___31.5__ -mmHg 35.0 45.0 pO2 160 -mmHg 69.0 116 HCO3- ___17.1__ -mmol/L 22.0 26.0 FIO2 ___45.0__ -% PRVC 20 - PEEP ____8.0__ -cmH2O Assessment & Plan 41 year old male with known history of alcohol and drug use presented unresponsive after being found with vomit around him, sedated and intubated for acute hypoxemic respiratory failure secondary to aspiration for 5 days and extubated on hospital day 6 following successful spontaneous breathing trial. Patient developed acute anoxic brain injury secondary to hypoxia.Patient had large volume of vomit suctioned out in the ED. initial toxicology screen done only for salycilate, alcohol and acetaminophen which is unremarkable. Initial EEG showed evidence of slowing but no other abnormalities to suggest that the patient is having clinical seizures causing his symptoms. - Intubated on 08/23/16 , Extubated on 08/28/16. Repeat MRI of brain on 09/15/16 showing: "Continued worsening of ischemic injury to the brain parenchyma, symmetric bilaterally". Given no obvious source of infection and remote likelihood of vasculitis, per discussion with Dr. Jara a trial of steroid therapy (Prednisone 80mg daily x 3 days) given on 09/17/16 to see if we will achieve any significant improvement in neuro symptoms. No obvious improvement noted with 3 days of Prednisone treatment.Neuro reviewed this case with with [facility] neurology. Acute anoxic Brain Injury, Acute dysphagia, poa, improving - patient is responding to voice and pain, able to say simple words - barium swallow showed silent aspiration to liquids, otherwise normal - family does not want PEG - Amantadine 200 bid, at goal, per neurology - c/w PT/OT : was advised to medicate patient with 1 g of Tylenol prior to starting physical therapy exercises to control pain Burning with urination, reported on 10/19 . Unclear If this is still ongoing -- UA was ordered yesterday, only showed trace leukocyte esterase. -- Urine has consistently showed 0 to urine RBC, urine did show a few bacteria from 10/19 sample. Hazy in appearance -- We will follow culture to decide if this needs to be treated, and cultures is still pending Diabetes Insipidus, poa, stable -10/16 Dr. Whatley is consulted again on the case due to hyponatremia, who has seen the patient this a.m. recommend stopping IV fluids, restarting DDVAP, we appreciate his time and recommendation. Acute Kidney Injury secondary to ATN present on admission. Resolved - requiring temporary dialysis - Unknown history of kidney injury. - Hemodialysis done daily starting 08/25/16 and then stopped. No longer on hemodialysis and catheter removed Questionable Acute Cholecystitis, based on HIDA scan and abdominal CT. Resolved - Gen. surgery was consulted, Dr. Dash - MRCP was negative for Acute Pancreatitis and Chronic cholecystitis. - Resolved cholelithiasis w/o choledocholithiasis. - TPN stopped on 09/06/16 as this was thought to be worsening cholecystitis and pancreatitis. Fever, intermittently acute, resolved on 10/15 -source unclear, no obvious new source of infection -CXR 10/14 showed Left basilar opacity suspicious for pneumonia versus aspiration , however this has been present on the prior chest x-rays, does not appear to be a new finding. Blood CX NGTD -will have speech re-evaluate for aspiration: ST rec"continue modified diet with aspiration precautions" -10/13 resp panel is neg --followed up w [facility]ADS on CXR, he has no c/o cough/choking: They stated that in the absence of clinical symptoms, these recent changes may just be due to atelectasis Acute Rhabdomyolysis, poa, resolved - resolved Tachycardia, resolved 10/19 -- I ordered an EKG 10/18, reviewed. No acute changes were seen, no ST elevation more than 1 leads -- Encourage hydration, Dr. Whatley instructed as not to give her IV fluids to patient. Nursing communication order was put in (patient at least 2 L of fluids from all sources. -- Telemonitoring does not have any overnight rhythm changes, discontinue telemetry Anxiety, resolved 10/19 -- Ordered BuSpar 7.5 mg twice a day by mouth 10/18 -- Plan to increase dose to 50 mg twice a day in a week Acute stage II ulcers in the buttock areas, present on admission, stable - Continue with wound care and supportive care History of alcohol dependence, poa, stable - thiamin History of drug dependence, poa, stable - Known user of cocaine and ice - Per family, last known use is around 5 months ago. Hypokalemia acute resolved on 10/20 -- 3.4 this am, treated with PO supplement. -- We rechecked labs BMP on 10/20 CXR Findings of suspicion for PNA as reported on 10/15 --Appears to be pneumonia like findings and his chest x-ray per long time now -- Patient denies coughing choking, shortness of breath. Does not appear to be having a pneumonia clinically. Called and spoke with the radiologist bowling or skating front desk clerk Dr. Ochoa who feels this could be atelectasis DVT prophylaxis- sequential compression device, heparin Disposition: Patient's has been setting up stuff ready at home for his discharge. I have discussed the fact that patient has exhibited several small improvements, would benefit from continued physical therapy and continued clinical follow-up. Explained to her that both hospital follow-up and clinical follow-up is important for patient's improvement, and that the patient may be limited due to lack of insurance and other resources in the community. I have urged her to line up support at home to watch and work with patient as most of what is being provided in the hospital is snf care. GI Prophylaxis: Not indicated (Patient extubated) VTE Prophylaxis: Sub-Q Heparin (Unfractionated), SCDs VTE Mechanical Devices: Intermittant Pneumatic CD Resuscitation Status: CPR: Attempt Resuscitation ( is ADM) Time spent 25 minutes Minerva Wilson DO Oct 20, 2016 18:00
--- NOTE | 2016-10-20 18:07 | NUR ---
NT fluids/positioning given tips on bed positioning. How to use the bed pad for turning Raise the bed to provide care as will help her back Importance of NT liquids for prevention of aspiration despite pt requesting thins or ice. given handout on how to do vital signs and what are expected norms. requesting info on barrier wipes, given info, from internet, on different brands and costs. Encouraged to bring in list of questions for staff at time of discharge.
[2016-10-20 18:45] VITALS: BP 121/74; PULSE 73; RESP 20; O2SAT 97
[2016-10-21] MEDS: Heparin 5,000 Unit/mL Inj SUBQ SCH ×2 (00:51→08:36)
[2016-10-21 00:56] VITALS: BP 109/72; PULSE 85; RESP 16; O2SAT 100
[2016-10-21 06:34] VITALS: BP 111/73; PULSE 83; RESP 16; O2SAT 98
[2016-10-21] MEDS: Desmopressin 100 mCg/mL 5 mL Nasal Spray NASAL SCH (08:35)
[2016-10-21] MEDS: AMANTADINE 10 MG/ML PO SCH (08:35)
[2016-10-21] MEDS: Nystatin 100,000 Unit/Gm 15 Gm Powder TOPICAL SCH (08:35)
[2016-10-21] MEDS: BusPIRone 15 mg Dividose Tablet PO SCH (08:36)
[2016-10-21 08:40] VITALS: BP 126/87; PULSE 90; RESP 20; O2SAT 99
[2016-10-21] MEDS ORDERED: DESM10SP2 NASAL (11:45)
[2016-10-21] MEDS ORDERED: Thiamine PO (11:45)
[2016-10-21] MEDS ORDERED: NYST1POW25 TOPICAL (11:45)
[2016-10-21] MEDS ORDERED: Bisacodyl RECTAL (11:45)
[2016-10-21] MEDS ORDERED: Acetaminophen PO ×2 (11:45)
[2016-10-21] MEDS ORDERED: BUSP15TA3 PO (11:45)
[2016-10-21] MEDS ORDERED: AMAN50SY PO (11:45)
--- NOTE | 2016-10-21 12:22 | PCM.DIMED ---
Discharge Instructions Date of Service Oct 21, 2016 Dates of Hospitalization Aug 23, 2016 at 07:01 Discharge Diagnosis Discharge Diagnosis Anoxic Brain Injury, Recurrent PNA resolved, Acute Rhabdomyolysis resolved, cholelithiasis, Diabetes Insipidus Patient Instructions Patient Instructions F/U with Georgian speaking medical superintendent home visit in 1 week F/U UA with reflex cx in one week BMP lab in one week F/U with [facility] to establish car ein 1-2 weeks Population Nurse to help arrange the resident visit. PT/OT to be done by family members Recommend a swallow eval by PCP in one month Minerva Wilson DO Oct 21, 2016 12:22
--- NOTE | 2016-10-21 12:25 | PCM.DC.MED ---
Discharge Summary Date of Service Oct 21, 2016 Dates of Hospitalization Date of Hospital Admission Aug 23, 2016 at 07:01 Date of Discharge: Oct 21, 2016 Providers: Admitting Physician: Maryjane Solo MD Primary Care Physician: Nopmarcus Attending Physician: Minerva Castelan DO Diagnosis at Time of Discharge Diagnosis at Time of Discharge Anoxic Brain Injury, Recurrent PNA resolved, Acute Rhabdomyolysis resolved, cholelithiasis, Diabetes Insipidus Consultations Neurology, Nephrology, Gen Surg, GI, Pulm/critical care, ID, PT/OT/ST, Palliative Care Procedures XRay, CTs & MRIs CT BRAIN WITHOUT CONTRAST IMPRESSION: No acute disease. Dictated by: Hemant Gallegos M.D. on 08/23/2016 CT BRAIN WITHOUT CONTRAST IMPRESSION: 1. Diffuse bilateral hypodensity of the globus pallidus. This is a new finding when compared with the study dated 08/23/16. Differential considerations include anoxic injury, carbon monoxide neurotoxicity, excessive alcohol ingestion, and methanol or ethylene glycol ingestion. Dictated by: Dinora Kang M.D. 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 Dictated by: Jacob Mosqueda M.D. on 08/28/2016 MRI STROKE PROTOCOL IMPRESSION: BRAIN MRI: Continued worsening of ischemic injury to the brain parenchyma, symmetric bilaterally, and best seen in the deep white matter of the lentiform nuclei, the wolfe radiata, and the centrum semiovale. No associated hemorrhage. BRAIN MR ANGIOGRAM: No acute disease to the intracranial arterial vasculature. NECK MR ANGIOGRAM: Normal cervical MR angiogram. The estimate of stenosis included in the report of the imaging study was calculated using the NASCET method Dictated by: Jack Padilla M.D. on 09/15/2016 CT CHEST WITHOUT CONTRAST IMPRESSION: Small basal left pleural effusion is unchanged, with associated left lower lobe compressive atelectasis. Superimposed pneumonia therefore cannot be excluded. Dictated by: Binh Ochoa M.D. on 09/07/2016 at 13:47 US RENAL SONOGRAM IMPRESSION: No hydronephrosis. Right renal cyst. Dictated by: Shobha Vale M.D. on 08/24/2016 US ABDOMEN, LIMITED IMPRESSION: Cholelithiasis, without justin gallbladder wall thickening to suggest acute cholecystitis at this time. Dictated by: Binh Ochoa M.D. on 09/07/2016 MR ABDOMEN MRCP IMPRESSION: 1. Markedly limited study due to motion artifact. 2. Cholelithiasis without evidence of cholecystitis. 3. No biliary ductal dilatation or definite choledocholithiasis. 4. No peripancreatic edema to suggest pancreatitis an MRI. No discrete pseudocyst identified. Dictated by: Bruce Valadez M.D. on 09/08/2016 at 17:47 US ABDOMEN IMPRESSION: 1. Cholelithiasis. 2. Mild gallbladder wall thickening. Acute cholecystitis cannot be excluded. 3. Echogenic liver. Finding typically represents fatty infiltration; however, finding is nonspecific and correlation with clinical and laboratory findings is recommended to exclude other etiologies including hepatic cirrhosis. 4. Slightly echogenic right kidney suspicious for developing medical renal disease. Please correlate with clinical and laboratory data. Dictated by: Swathi Jimenes MD, PhD on 08/29/2016 US ABDOMEN, LIMITED IMPRESSION: Cholelithiasis, without justin gallbladder wall thickening to suggest acute cholecystitis at this time. Dictated by: Binh Ochoa M.D. on 09/07/2016 X-RAY CHEST ONE VIEW, PORTABLE IMPRESSION: No acute disease is seen a semiupright portable chest. Tubes are considered appropriate radiographically. Dictated by: Hemant Gallegos M.D. on 08/23/2016 X-RAY CHEST ONE VIEW, PORTABLE IMPRESSION: Support lines as above. Otherwise, no acute pulmonary process. Dictated by: Shobha Vale M.D. on 08/24/2016 X-RAY CHEST ONE VIEW, PORTABLE IMPRESSION: No acute cardiopulmonary disease process. Dictated by: Swathi Jimenes MD, PhD on 08/25/2016 X-RAY CHEST ONE VIEW, PORTABLE IMPRESSION: 1. Left basilar atelectasis. Otherwise lungs are clear. 2. ET and enteric tubes. Dictated by: Jacob Mosqueda M.D. on 08/27/2016 at 9:53 X-RAY CHEST ONE VIEW, PORTABLE IMPRESSION: Stable left basilar atelectasis and support lines. Dictated by: Jacob Mosqueda M.D. on 08/28/2016 at 7:54 Date of Service: 09/15/16 5703 PROCEDURE: MRI STROKE PROTOCOL ([id number]) IMPRESSION: BRAIN MRI: Continued worsening of ischemic injury to the brain parenchyma, symmetric bilaterally, and best seen in the deep white matter of the lentiform nuclei, the wolfe radiata, and the centrum semiovale. No associated hemorrhage. BRAIN MR ANGIOGRAM: No acute disease to the intracranial arterial vasculature. NECK MR ANGIOGRAM: Normal cervical MR angiogram. The estimate of stenosis included in the report of the imaging study was calculated using the NASCET method Dictated by: Jack Padilla M.D. on 09/15/2016 at 21:36 Approved by: Jack Padilla M.D. on 09/15/2016 at 21:42 Other Diagnostics AB DateTimeAnalyzed 10:20:00 -_ pH ____7.354 - 7.350 7.450 pCO2 ___31.5__ -mmHg 35.0 45.0 pO2 160 -mmHg 69.0 116 HCO3- ___17.1__ -mmol/L 22.0 26.0 FIO2 ___45.0__ -% PRVC 20 - PEEP ____8.0__ -cmH2O Brief History Santiagorudi Ann is a 41 year old male who presented to the ED via EMS after being found unconscious at 0430 with vomit on himself by his who last saw him well at 1900 the previous night. EMS was called and CPR instructions were given over the phone to the as the patient had abnormal breathing. She gave him CPR until medics arrived. The medics gave the patient 2 mg of Narcan IV which caused his arms to move but he continued to be unresponsive. The pt's reports no falls or trauma to the pt's head. She also states that the pt's brother has possibly had seizures in the past. She mentioned that Mr. Ann drank a bottle of tequila last night and frequently drinks alcohol. He has had no prior episodes like this. In the ED, vomit was suctioned out of the throat, and he was intubated. CT showed no acute disease and chest x-ray was unremarkable .He was found to be hyperkalemic and acidotic on ABG. He is admitted to the CCU for further management. Hospital Course: He developed acute tubular necrosis secondary to rhabdomyolysis and is being followed by Nephrology and received his first dialysis treatment 08/25 for rising creatinine related to elevated CKs. Dr. Lopez has been treating him for possible aspiration pneumonia. The patient has continued to be unresponsive. An EEG done yesterday while the patient was on propofol showed slowing at approximately 6 hertz but no epileptiform abnormalities and no evidence of subclinical seizures to explain his coma state. U Tox in the emergency department showed evidence of cocaine. Head CT completed on August 25 showed evidence of what appeared to be basal ganglial or globus pallidus hyperdensities. There were no other signs to suggest edema. A neurology consultation was requested when the patient failed to improve and continued to show suggestion of brainstem dysfunction with doll' s eyes and inability to breathe on his own off the respirator. He has, however, remained on propofol which has been tapered but not completely due to the evidence of bronchospasm at times according to nursing staff. Significant for this examination, the propofol has been stopped. Off propofol there was some voluntary movement of his eyes and facial response to familiar voices. Today is Hospital Day 4 and Palliative Care will meet with family to gather background information about the pt and give a medical update compiled by the Attending hospitalist team through a [employer] Associate Product Integrity Engineer. In CCU rounds, the patient's clinical condition was discussed extensively today. His neuro status is unclear and neurology universal branch consultant has already counseled family that he likely has had some anoxic injury but it is yet unclear how much, that we will have to monitor this over time. Hospital Course 41 year old male with known history of alcohol and drug use presented unresponsive after being found with vomit around him, sedated and intubated for acute hypoxemic respiratory failure secondary to aspiration for 5 days and extubated on hospital day 6 following successful spontaneous breathing trial. Patient developed acute anoxic brain injury secondary to hypoxia.Patient had large volume of vomit suctioned out in the ED. initial toxicology screen done only for salycilate, alcohol and acetaminophen which is unremarkable. Initial EEG showed evidence of slowing but no other abnormalities to suggest that the patient is having clinical seizures causing his symptoms. - Intubated on 08/23/16 , Extubated on 08/28/16. Repeat MRI of brain on 09/15/16 showing: "Continued worsening of ischemic injury to the brain parenchyma, symmetric bilaterally". Given no obvious source of infection and remote likelihood of vasculitis, per discussion with Dr. Jara a trial of steroid therapy (Prednisone 80mg daily x 3 days) given on 09/17/16 to see if we will achieve any significant improvement in neuro symptoms. No obvious improvement noted with 3 days of Prednisone treatment.Neuro reviewed this case with with [facility] neurology. Acute anoxic Brain Injury, Acute dysphagia, poa, improving - patient is responding to voice and pain, able to say simple words - barium swallow showed silent aspiration to liquids, otherwise normal - family does not want PEG - Amantadine 200 bid, at goal, per neurology - c/w PT/OT : was advised to medicate patient with 1 g of Tylenol prior to starting physical therapy exercises to control pain -- The day of discharge, patient is eating pureed diet, tolerating pureed/ nectar thickened diet. He is allowed water sips. Tolerating 100% of his diet. Burning with urination, reported on 10/19 . Unclear If this is still ongoing -- UA was ordered yesterday, only showed trace leukocyte esterase. -- Urine has consistently showed 0 to urine RBC, urine did show a few bacteria from 10/19 sample. Hazy in appearance -- We will follow culture to decide if this needs to be treated, and cultures is still pending. -- Upon re-review pain is not from the urethra but below the urethral opening -- F/U UA in one week after d/c Diabetes Insipidus, poa, stable -10/16 Dr. Whatley is consulted again on the case due to hyponatremia, who has seen the patient this a.m. recommend stopping IV fluids, restarting DDVAP, we appreciate his time and recommendation. -- Continue DDVAP at d/c Acute Kidney Injury secondary to ATN present on admission. Resolved - requiring temporary dialysis - Unknown history of kidney injury. - Hemodialysis done daily starting 08/25/16 and then stopped. No longer on hemodialysis and catheter removed Questionable Acute Cholecystitis, based on HIDA scan and abdominal CT. Resolved - Gen. surgery was consulted, Dr. Dash - MRCP was negative for Acute Pancreatitis and Chronic cholecystitis. - Resolved cholelithiasis w/o choledocholithiasis. - TPN stopped on 09/06/16 as this was thought to be worsening cholecystitis and pancreatitis. Fever, intermittently acute, resolved on 10/15 -source unclear, no obvious new source of infection -CXR 10/14 showed Left basilar opacity suspicious for pneumonia versus aspiration , however this has been present on the prior chest x-rays, does not appear to be a new finding. Blood CX NGTD -will have speech re-evaluate for aspiration: ST rec"continue modified diet with aspiration precautions" -10/13 resp panel is neg --followed up w RADS on CXR, he has no c/o cough/choking: They stated that in the absence of clinical symptoms, these recent changes may just be due to atelectasis -- Last known fever: 10/14/16 Acute Rhabdomyolysis, poa, resolved - resolved Tachycardia, resolved 10/19 -- I ordered an EKG 10/18, reviewed. No acute changes were seen, no ST elevation more than 1 leads -- Encourage hydration, Dr. Whatley instructed as not to give her IV fluids to patient. Nursing communication order was put in (patient at least 2 L of fluids from all sources. -- Telemonitoring does not have any overnight rhythm changes, discontinue telemetry Anxiety, resolved 10/19 -- Buspar 15 mg PO BID at d/c Acute stage II ulcers in the buttock areas, present on admission, resolved - wound care and supportive care were provided History of alcohol dependence, poa, stable - thiamin supplementation, to be continued at d/c History of drug dependence, poa, stable - Known user of cocaine and ice - Per family, last known use is around 5 months ago. Hypokalemia acute resolved on 10/20 -- 3.4 this am, treated with PO supplement. -- We rechecked labs BMP on 10/20 --- F/U BMP in one week CXR Findings of suspicion for PNA as reported on 10/15 --Appears to be pneumonia like findings and his chest x-ray per long time now -- Patient denies coughing choking, shortness of breath. Does not appear to be having a pneumonia clinically. Called and spoke with the radiologist dental surgeon Dr. Ochoa who feels this could be atelectasis DVT prophylaxis- sequential compression device, heparin Disposition: Patient's has been setting up stuff ready at home for his discharge. I have discussed the fact that patient has exhibited several small improvements, would benefit from continued physical therapy and continued clinical follow-up. Explained to her that both hospital follow-up and clinical follow-up is important for patient's improvement, and that the patient may be limited due to lack of insurance and other resources in the community. I have urged her to line up support at home to watch and work with patient as most of what is being provided in the hospital is [facility] care. Exam Vital Signs (Last) Date Time Temp Pulse Resp B/P Pulse Ox O2 Delivery O2 Flow Rate FiO2 10/21/16 08:40 Supplement Oxygen 10/21/16 08:40 37.0 90 20 126/87 99 Exam Gen.: No acute distress, yawning occasionally HEENT: Normocephalic, atraumatic, extraocular movements are intact, PERRLA Heart: Regular rate and rhythm no S3-S4 murmurs Lungs are clear to auscultation bilaterally no crackles or wheezes Abdomen flat, soft, nontender Extremities: Finger data manager strength equal and symmetric, minimally responsive. Neurological: No change from yesterday, no new deficits Psychiatric: Appears calm, affect is neutral, appropriately interactive Test 08/23/16 05:30 08/23/16 11:10 08/24/16 05:20 08/25/16 05:30 Salicylates Level < 3.0ug/mL (30-250) Acetaminophen Level < 15.0ug/mL Rx (10-25) Alcohols < 10mg/dL (0-10) Uric Acid 9.2mg/dL (2.6-7.2) Hemoglobin A1c 5.6% (4.8-5.6) Lactate Dehydrogenase 927U/L (100-190) Test 08/25/16 16:46 08/26/16 09:51 08/26/16 11:30 09/02/16 10:30 Hepatitis B Surface Antigen Negative (Negative) Hepatitis B Surface Antibody Non reactive (.) Hepatitis B Core Total Antibody Negative (Negative) Hepatitis C Antibody <0.1s/co ratio (0.0-0.9) Activated Partial Thromboplast Time 28.6sec (22.8-33.0) Fibrinogen 499mg/dL (157-380) HIV (1&2) Ag and Ab, 4th Generation Non reactive (Non Reactive) TB Test (QFT) Gold In Tube Negative (Negative) TB Test (QFT) Incubation Comment (.) TB Test (QFT) Mitogen 6.43IU/mL (.) TB Test (QFT) Antigen 0.22IU/mL (.) TB Test (QFT) Antigen Minus Nil 0.14IU/mL (.) TB Test (QFT) TB - Nil 0.08IU/mL (.) TB Test (QFT) Positive Criteria Comment (.) TB Test (QFT) Interpretation Comment (.) Fungal Antibodies <31pg/mL (<80) Test 09/05/16 05:40 09/11/16 07:00 09/14/16 05:30 09/14/16 18:39 Hold Purple Top Tube Received (Received) Hold [place] Top Tube Received (Received) Amylase Level 256U/L (28-100) Osmolality 319 (275-300) Urine Osmolality 612mOs/kH2O (250-1200) Test 09/14/16 20:19 09/16/16 17:53 09/17/16 14:00 09/17/16 14:20 Hold Urine Received (Received) CSF Appearance Clear (CLEAR) CSF Color Colorless (COLORLESS) CSF WBC 1/mm3 (0-5) CSF RBC 61/mm3 CSF Mononuclear WBCs % CSF Polynuclear WBCs % CSF Other Cells CSF Glucose 72mg/dL (45-90) CSF Total Protein 19mg/dL (15-45) Direct Bilirubin < 0.2mg/dL (0.0-0.3) Rapid Plasma Reagin Non reactive (Non Reactive) Bartonella henselae IgG Antibody Negativetiter (Neg:<1:320) Bartonella henselae IgM Antibody Negativetiter (Neg:<1:100) Bartonella echeverria IgG Antibody Negativetiter (Neg:<1:320) Bartonella echeverria IgM Antibody Negativetiter (Neg:<1:100) U-Igtlqw-P-Aspartate Recept IgG Ab <1:10 (<1:10) West Nile Virus IgG Antibody Negative (Negative) West Nile Virus IgM Antibody Negative (Negative) Test 09/20/16 04:30 09/25/16 14:00 09/29/16 10:10 09/30/16 08:25 Erythrocyte Sedimentation Rate 50mm/hr (0-15) Hematology Comments C-Reactive Protein 0.2mg/dL (0.0-0.5) Myelocytes % 1% (0-0) Prothrombin Time 11.2sec (8.1-12.5) Prothromb Time International Ratio 1.05ratio Phosphorus Level 4.2mg/dL (2.5-4.9) Magnesium Level 2.2mg/dL (1.6-2.6) Lipase 216U/L (13-60) Test 09/30/16 17:00 10/13/16 15:20 10/13/16 22:32 10/14/16 06:58 Cryptococcus Antigen Negative (Negative) Total Bilirubin 0.5mg/dL (0.0-1.2) Aspartate Amino Transf (AST/SGOT) 25U/L (0-50) Alanine Aminotransferase (ALT/SGPT) 53U/L (0-44) Alkaline Phosphatase 80U/L (25-150) Total Creatine Kinase 89U/L (21-232) Total Protein 7.1g/dL (6.4-8.4) Albumin 3.6g/dL (3.4-5.0) Thyroid Stimulating Hormone (TSH) 1.540uIU/mL (0.450-4.500) Free Thyroxine 1.42ng/dL (0.82-1.77) Lactic Acid Level 1.9mmol/L (0.4-2.0) Band Neutrophils % 4% (1-5) Metamyelocytes % 2% (0-0) Nucleated Red Blood Cells 1/100 WBC (0-24) Test 10/15/16 06:45 10/20/16 06:20 10/20/16 12:59 Neutrophils (%) (Auto) 62.7% (40-74) Lymphocytes (%) (Auto) 20.9% (14-46) Monocytes (%) (Auto) 7.8% (4-12) Eosinophils (%) (Auto) 2.5% (0-5) Basophils (%) (Auto) 0.4% (0-3) Procalcitonin 0.08ng/mL (0.00-0.08) White Blood Count 7.8th/mm3 (3.8-10.1) Red Blood Count 3.60mil/mm3 (4.40-5.80) Hemoglobin 10.5g/dL (13.8-17.2) Hematocrit 32.6% (41.0-50.0) Mean Corpuscular Volume 90.6fL (81-100) Mean Corpuscular Hemoglobin 29.2pg (27.0-35.0) Mean Corpuscular Hemoglobin Concent 32.2% (32.0-37.0) Red Cell Distribution Width 14.7% (12.3-15.4) Platelet Count 244bil/L (150-400) Sodium Level 136mEq/L (134-144) Potassium Level 3.7mEq/L (3.5-5.2) Chloride Level 98mEq/L (97-108) Carbon Dioxide Level 23mmol/L (18-29) Blood Urea Nitrogen 4mg/dL (6-24) Creatinine < 0.30mg/dL (0.76-1.27) Estimat Glomerular Filtration Rate 353mL/min (>59) Glucose Level 98mg/dL (60-99) Calcium Level 9.2mg/dL (8.5-10.1) Urine Color Straw (YELLOW) Urine Appearance Hazy (CLEAR,HAZY) Urine pH 7.5 (5.0-8.0) Urine Specific [place] 1.010 (1.003-1.035) Urine Protein Negativemg/dL (NEG,TRACE) Urine Glucose (UA) Negativemg/dL (NEGATIVE) Urine Ketones Negativemg/dL (NEGATIVE) Urine Occult Blood Negative (NEGATIVE) Urine Nitrite Negative (NEGATIVE) Urine Bilirubin Negative (NEGATIVE) Urine Urobilinogen Normalmg/dL (NORMAL) Urine Leukocyte Esterase Trace (NEGATIVE) Urine RBC 0-2/hpf (0-2) Urine WBC 0-5/hpf (0-5) Urine Epithelial Cells Occasional/hpf (NONE-MOD) Urine Crystals None seen (NONE SEEN) Urine Bacteria Few/hpf (NONE-FEW) Urine Hyaline Casts None/lpf (NONE) Urine Granular Casts None seen (NONE SEEN) Urine Waxy Casts None seen (NONE SEEN) Urine Red Blood Cell Casts None seen (NONE SEEN) Urine White Blood Cell Casts None seen (NONE SEEN) Urine Mucus None seen (None Seen) Urine Trichomonas None seen (NONE SEEN) Urine Yeast None (NONE SEEN) Urinalysis Comment None Urine Culture Reflexed Indicated Microbiology Results Blood cultures pending MRSA swab pending Discharge Medications Discharge Medications ([Thiamine]) 100 MG TABLET 100 MG PO DAILY Prescribed by: MINERVA CASTELAN DO Amantadine Liquid (Amantadine Liquid) 50 Mg/5 Ml Syrup 200 MG PO BID Prescribed by: MINERVA CASTELAN DO Buspirone (Buspirone) 15 Mg Tablet 15 MG PO BID Prescribed by: MINERVA CASTELAN DO Desmopressin Acetate (Desmopressin Acetate) 10 Mcg/0.1 Ml [place].pump 1 SPRAY NASAL BID Prescribed by: MINERVA CASTELAN DO Nystatin (Nystatin) 1 Each Powder.ea. 1 APPLIC TOPICAL BID Prescribed by: MINERVA CASTELAN DO As needed ([Acetaminophen]) 325 MG TABLET 975 MG PO BID PRN PRN BEFORE EXERCISE FOR PAIN Prescribed by: MINERVA CASTELAN DO ([Acetaminophen]) 325 MG TABLET 325 MG PO Q8H PRN PRN For Mild Pain or Fever Prescribed by: MINERVA CASTELAN DO ([Bisacodyl]) 10 MG SUPP 10 MG RECTAL DAILY PRN PRN For Constipation Prescribed by: MINERVA CASTELAN DO Followup Plan Patient Instructions F/U with [facility] medical assistant home visit in 1 week F/U UA with reflex cx in one week BMP lab in one week F/U with [facility] to establish car ein 1-2 weeks Population Nurse to help arrange the resident visit. PT/OT to be done by family members Recommend a swallow eval by PCP in one month Time spent Greater than 30 minutes was spent in preparation of discharge with greater than 50% of that time dedicated to patient counseling and coordination of care. Minerva Castelan DO Oct 21, 2016 12:25
--- NOTE | 2016-10-21 13:55 | NUR ---
Discharge Reviewed DC instructions with via interrupter in person. Graphed out medications and when they are due. Reviewed risk for aspiration and need to sit upright when eating and drinking Demonstrated how to crush medications in device that was provided to her Emphasized importance to turn every 2 hours to prevent skin breakdown. Encouraged to take care of self and have family help with care of patient. Pt discharged via stretcher, as does not have any trunk strength to sit up at all. All belongings taken home in 's private vehicle. After discharge call Juma: population health critical care unit nurse at [facility]. [phone] ( given this number to help with questions.) updated on status, answered questions, stated expectations.
--- NOTE | 2016-10-21 14:43 | NUR ---
Social Work Note: Discharge Data& Assessment: Per MD pt is medically stable for discharge home. Santiago Ann is a 41 year old male admitted on 08/23/2016 for anoxic/brain injury. Pt has improved cognitively and is now able to communicate verbally. Pt no longer requires a feeding tube. Pt has been making small improvements in his strength throughout his hospitalization. Pt does not have access to outpt PT, SNF or inpt rehab due to insurance. Pt has been taught exercises to continue with pt at home to maintain circulation and continue strengthening. Pt has been practicing these exercises with pt daily, multifile times a day. Pt has also been participating in pt [facility] care during this hospitalization in preparation for pt discharging home with family caregiving. Pt confirmed she has obtained all DME (Evangelina lift, hospital bed, and waffle EHOB mattress), miscellaneous supplies such as briefs, and dietary recommendations. Pt and pt feel ready to discharge from the hospital and begin their own routine at home. Population Health RN to call pt to check in and assess for any questions or concerns for pt in the home that RN might be able to answer. Pt agreeable to [employer] [facility] via Stretcher with a cost of $68-$75. [employer] scheduled to pick pt up today at 1330 via stretcher transport. Their contact information provided for any future transport needs so pt does not have to travel by [facility]. Pt, pt , QUETA, all updated and agreeable to plan. Pt denies any other questions, concerns or needs. RN completed all discharge paperwork and instructions with assistance of photostat operator to ensure complete understanding. No other discharge needs identified. Plan: Per MD pt is medically stable to discharge home with family support. Pt has been provided with all teaching and recommendations. Pt has obtained all recommended DME equipment and supplies. Pt has practiced and confirmed understanding of pt care needs and demonstrated that she is able to complete his care needs appropriately per retail analytics manager. Pt, pt , RN, all updated and agreeable to plan. Pt denies any other questions, concerns or needs. No other discharge needs identified. JEFF Swan
--- NOTE | 2016-10-25 17:32 | NUR ---
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 Per Arabella, pt is now on the wait list. JEFF Swan
== END 2016-10-21 13:50 | disposition home or self-care (01) | DRG 91 ==
LOC: EDBD 05:19 → SED 05:19 → CCU 07:01 → PCC 08-28 16:36 → MOC 08-31 22:30
PROVIDERS: ADMIT Specialist; ATTEND Neuromusculoskeletal Medicine & OMM
PROC: 5A1955Z Respiratory Ventilation, Greater than 96 Consecutive Hours (ICD-10-PCS; principal; 2016-08-23)
PROC: 4A033R1 Measurement of Arterial Saturation, Peripheral, Percutaneous Approach (ICD-10-PCS; 2016-08-23)
PROC: 06HM33Z Insertion of Infusion Device into Right Femoral Vein, Percutaneous Approach (ICD-10-PCS; 2016-08-25)
PROC: 4A00X4Z Measurement of Central Nervous Electrical Activity, External Approach (ICD-10-PCS; 2016-08-25)
PROC: 5A1D00Z (ICD-10-PCS; 2016-08-25)
PROC: 5A1D00Z (ICD-10-PCS; 2016-08-27)
PROC: 5A1D00Z (ICD-10-PCS; 2016-08-28)
PROC: 5A1D00Z (ICD-10-PCS; 2016-08-29)
PROC: 5A1D00Z (ICD-10-PCS; 2016-08-30)
PROC: 4A00X4Z Measurement of Central Nervous Electrical Activity, External Approach (ICD-10-PCS; 2016-09-01)
PROC: 009U3ZX Drainage of Spinal Canal, Percutaneous Approach, Diagnostic (ICD-10-PCS; 2016-09-16)
DX: G93.1 Anoxic brain damage, not elsewhere classified (principal); J96.01 Acute respiratory failure with hypoxia; J69.0 Pneumonitis due to inhalation of food and vomit; N17.0 Acute kidney failure with tubular necrosis; R53.2 Functional quadriplegia; E87.2 Acidosis; M62.82 Rhabdomyolysis; E22.1 Hyperprolactinemia; E87.0 Hyperosmolality and hypernatremia; E23.2 Diabetes insipidus; F19.20 Other psychoactive substance dependence, uncomplicated; E87.5 Hyperkalemia; R94.5 Abnormal results of liver function studies; L89.152 Pressure ulcer of sacral region, stage 2; R74.0 Nonspecific elevation of levels of transaminase and lactic acid dehydrogenase [LDH]; R13.10 Dysphagia, unspecified; K59.00 Constipation, unspecified; F10.229 Alcohol dependence with intoxication, unspecified; K80.20 Calculus of gallbladder without cholecystitis without obstruction